=== PATIENT | male | born 1985 | race African-American/Black ===

== ENCOUNTER → 2020-11-10 11:04 | Outpatient (BNVA) | payer MEDICARE, MEDICAID, SELFPAY | PROVIDERS: Family Provider Nurse Practitioner; PCP Nurse Practitioner; Visit Provider Surgery | DX: Z20.822 Contact with and (suspected) exposure to COVID-19 (principal) | CPT/HCPCS: 87635 ==

== ENCOUNTER 2020-11-30 07:26 | Day surgery (SDC) | payer MEDICARE, MEDICAID, SELFPAY ==
[2020-11-29 14:27] VITALS: BMI 21.7
[2020-11-30] VITALS (8 sets, daily range): BP systolic 98–145; BP diastolic 54–85; PULSE 67–78; RESP 12–18; TEMP 36.1–36.7; O2SAT 96–100
--- NOTE | 2020-11-30 | SCC_ITS ---
Procedure Done: Exchange of 16 Danish 23 cm long AshSplit tunneled hemodialysis catheter in the right internal jugular vein 33.5 seconds of fluoroscopic guidance, for a cumulative dose of 2.80 mGy, was provided to Dr. Sampson by the radiology department. C-arm images of the chest were saved for the patient's permanent record. [facility]
--- NOTE | 2020-11-30 08:19 | ANES.PREANE2 ---
Pre-Anesthetic Assessment Pre-Anesthetic Assessment: Height/Weight: Height 1.73 m Weight 64.864 kg Preop Diagnosis: Nonfunctioning hemodialysis catheter Proposed Procedure: Operation Date: 11/30/20 09:00 Proposed Procedures p Exchange of Tunneled dialysis catheter 78873 N18.9(Not Applicable) - Nithin Sampson MD Familial anesthetic complications: None Was Beta Jadon taken within 24 hours: N/A Last intake: Intake Last Liquid Date 11/30/20 Last Liquid Time 22:00 Last Solid Date 11/30/20 Last Solid Time 22:00 Social: Social History: No alcohol and No tobacco Comment: Uses Marijuana Airway: Cervical ROM: WNL MP: 2 Dentition: Full : : Chronic renal failuer Musc/skel: Comments: HIV Anesthetic Plan: ASA status: 3 Anesthesia: MAC Risk of > 500 ml blood loss (7ml/kg in children): No PFSH Anesthesia PFSH: Medical History AV fistula Chronic kidney disease History of chemotherapy History of testicular cancer HIV carrier Surgical History (Updated 11/14/20 @ 16:33 by Nithin Sampson MD) History of removal of Port-a-Cath S/P hemodialysis catheter insertion S/P laparotomy Lymph node biopsy Family History Denies family history of Anesthesia complication Bleeding disorder Social History Smoking and tobacco status: current every day smoker Alcohol intake: never Adopted: No Caregiver/support person: Yes Lives independently: Yes Housing: House Current occupational status: disabled Pets and animals: No History of recent travel: No Sexually active: Yes Current gender identity: Male Josefa/Muslim: Yazdanism Data Anesthesia Cardiac Studies: No Data to Display
--- NOTE | 2020-11-30 08:25 | W.PM.OPSUD ---
Surgery/Procedure H&P Update DATE OF PROCEDURE: November 30, 2020 DATE H&P PERFORMED: 11/10/20 H&P UPDATE INFORMATION: I have reviewed H&P completed within last 30 days, I have examined patient prior to procedure and No changes to prior documentation PREOP DIAGNOSIS: Nonfunctioning hemodialysis catheter PLANNED PROCEDURE: Operation Date: 11/30/20 09:00 Proposed Procedures p Exchange of Tunneled dialysis catheter 16879 N18.9(Not Applicable) - Nithin Sampson MD
[2020-11-30] MEDS: sodium chloride 0.9% 1,000 ML 30 ML IV (08:32)
[2020-11-30] MEDS: lidocaine 1% INJ 20 mL SUBCUT (09:04)
[2020-11-30] MEDS: heparin, porcine 1,000 unit/mL INJ 10 mL 6000 UNIT XX (09:05)
--- NOTE | 2020-11-30 09:12 | SC_ITS ---
WS: [id number] C-arm fluoroscopy of the right chest for dialysis catheter insertion, 11/30/2020 Clinical Data: intra-op Comparison: Portable chest, 03/26/2019. Findings: The dialysis catheter enters the right internal jugular vein and ends in the superior vena cava. SC/C-arm FL for CVA [id number] Impression: Satisfactory insertion of right dialysis catheter.
--- NOTE | 2020-11-30 09:16 | P.OP_ITS ---
Operative Report Date of procedure: November 30, 2020 Pre-op Diagnosis: Nonfunctioning hemodialysis catheter Post-op diagnosis: same Procedure Done: Exchange of 16 Zimbabwean 23 cm long AshSplit tunneled hemodialysis catheter in the right internal jugular vein Fluoroscopic guidance and interpretation for placement of catheter Pathology: none sent Surgeon: Nithin Sampson Anesthesia: MAC Condition: stable Disposition: PACU Procedure: The patient was in the operating room and placed under MAC after IV antibiotic had been administered. The existing catheter was draped in Betadine after the chest was prepped and draped in a sterile manner. Under fluoroscopy the new location for the catheter was marked on the right chest wall adjacent to the existing catheter. Using 11 blade an incision was made at the site of planned entry on the right chest as well as at the site of entry into the right internal jugular vein. The existing catheter was dissected free from the surrounding subcutaneous tissue and divided after the distal end was clamped. The existing catheter was dissected free from the subcutaneous tissue on the right chest and removed completely. The new 16 Zimbabwean 23 cm long AshSplit catheter was then passed subcutaneously using a tunneler and exited through the incision in the right neck. A guidewire was passed through the distal portion of the previously placed catheter and the catheter was removed. A dilator sheath was passed over the guidewire under fluoroscopy and the inner dilator and guidewire was removed. The catheter was introduced into the internal jugular vein and down to the superior vena cava as the peel-away sheath was removed. Fluoroscopy confirmed good position of the catheter tip with no obvious evidence of kinking. The catheter sutured to the skin using 3-0 Prolene suture and the skin incision was closed using 4-0 Monocryl and surgical glue. The 2 catheter ports flushed and rudolph blood easily, and the 2 ports were flushed with 2.5 cc each of 1: 1,000 heparin. Pressure dressings were applied and the patient was transferred to recovery room in stable condition.
--- NOTE | 2020-11-30 09:26 | P.PCN_ITS ---
PACU note PACU note: VSS, Good respiratory effort, report to WASHER CARCASS Post-Anesthesia Exam: awake
--- NOTE | 2020-11-30 09:26 | PM.PACU ---
PACU note PACU note: VSS, Good respiratory effort, report to [employer] Post-Anesthesia Exam: awake
--- NOTE | 2020-11-30 09:33 | SUR.PHASEI ---
0933- ORAL AIRWAY REMOVED, SIMPLE MASK AT 6LPM SAT 100%
[2020-11-30] MEDS: ondansetron 2 mg/ML SDV 2 mL 4 MG IVP (10:10)
--- NOTE | 2020-11-30 10:23 | SUR.PHASEII ---
medicated for nausea. additional 4x4 dressing and dermabond applied to op site.
--- NOTE | 2020-11-30 14:47 | ANE.PACU2 ---
Inpatient post-anesthesia follow up: Airway intact: Yes Vital signs: Temperature 97.5 F Pulse Rate 75 Respiratory Rate 16 Blood Pressure 138/85 Pulse Oximetry 98 Oxygen Delivery Me thod Room Air Oxygen Flow Rate 6 Fraction of Inspir ed Oxygen Hydration adequate: Yes Nausea and vomiting: No Pain level: 1 Mental status: Baseline
== END 2020-11-30 10:25 | disposition home or self-care (01) ==
PROVIDERS: PCP Nurse Practitioner; Visit Provider Surgery
PROC: (CPT 36558; principal; 2020-11-30 09:00)
DX: T85.691A Other mechanical complication of intraperitoneal dialysis catheter, initial encounter (principal)
CPT/HCPCS: 36558; 36589; 77001; 96365; 96374; C1750; J0690; J1644; J2405; J2704; J3010; J3490; J7030

== ENCOUNTER 2021-05-29 19:11 | Inpatient (IN) | payer MEDICARE, MEDICAID, SELFPAY ==
[2021-05-29] VITALS (10 sets, daily range): BP systolic 124–185; BP diastolic 93–120; PULSE 102–138; RESP 26–45; TEMP 36.7; O2SAT 96–98; BMI 22.8
--- NOTE | 2021-05-29 19:16 | XRR_ITS ---
PROCEDURE INFORMATION: Exam: XR Chest Exam date and time: 05/29/2021 7:16 PM Age: 36 years old Clinical indication: Cough and shortness of breath; Prior surgery; Surgery type: Dialysis cath; Additional info: SOB TECHNIQUE: Imaging protocol: XR of the chest. Views: 1 view. Total images: 1 COMPARISON: CR Chest 1 [place] [id number] 03/26/2019 11:05 AM FINDINGS: Tubes, catheters and devices: Double-lumen right indwelling dialysis catheter tip atrial caval junction. Lungs: Bilateral predominately perihilar interstitial lung disease suggesting active interstitial edema/pulmonary edema. Central pulmonary hyperemia. Pleural spaces: No visible pleural effusion. No pneumothorax. Heart/Mediastinum: Mild cardiomegaly. Bones/joints: Unremarkable. XR/XR chest 1V portable [id number] IMPRESSION: Moderate interstitial edema/pulmonary edema.
--- NOTE | 2021-05-29 19:16 | ECG_ITS ---
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: : 1985 Requested By: Renee Dsouza Order Number: [id number] Neva MD: ELIZABETH OSORIO Measurements Intervals [place] Rate: 130 P: 80 CA: 141 QRS: 66 QRSD: 71 T: 104 QT: 302 QTc: 445 Interpretive Statements SINUS TACHYCARDIA MINIMAL VOLTAGE CRITERIA FOR LVH, CONSIDER NORMAL VARIANT [MEETS CRITERIA IN ONE OF: R(aVL), S(V1), R(V5), R(V5/V6)+S(V1)] MODERATE T-WAVE ABNORMALITY, CONSIDER LATERAL ISCHEMIA [-0.1+ mV T-WAVE IN I/aVL/V5/V6] Compared to ECG 03/26/2019 09:18:17 Possible ischemia now present T-wave abnormality still present Electronically Signed On 05-29-2021 21:01:00 CDT by ELIZABETH OSORIO [id number]
[2021-05-29] MEDS: albuterol 8 gm MDI 2 PUFF INHALATION (19:20)
[2021-05-29] MEDS: dexamethasone 10 mg/mL INJ 6 MG IVP (19:26)
[2021-05-29 19:28] LABS: ABG PCO2 27.4 mmHg (35-45); ABG PH Result 7.37 (7.35-7.45); Arterial Blood Gas Hematocrit 34.7 % (42-52); Base Excess ABG -8.1 mmol/L (-2.0-2.0); Blood Gas Operator Identificat HARKR; Blood Gas Sample Site Brachial, right; Blood Gas Sample Type Arterial; HCO3 ABG 15.9 mmol/L (22-26); Oxygen Device ROOM AIR; PO2 ABG 75.9 mmHg (80.0-100.0)
[2021-05-29 19:32] LABS: Basophils % 1.1 %; Eosinophils # 0.1 10^3/uL (0.0-0.8); Eosinophils % 3.4 %; Hematocrit 35.8 % (42.0-52.0); Hemoglobin 11.1 g/dL (11.7-16.6); Lymphocytes # 1.4 10^3/uL (0.8-4.8); Lymphocytes % 39.7 %; Mean Corpuscular Hemoglobin 27.5 pg (28.0-34.0); Mean Corpuscular Volume 88.6 fl (80-94); Mean Platelet Volume 11.3 fL (7.4-10.4); Monocytes # 0.2 10^3/uL (0.2-0.9); Monocytes % 5.7 %; Neutrophils # 1.74 10^3/uL (1.8-7.7); Neutrophils % 49.8 %; Nucleated Red Blood Cells % 0.6 %; Platelet Count 167 10^3/cmm (130-400); Red Blood Count 4.04 10^6/uL (4.1-5.3); Red Cell Distribution Width 17.5 % (12.1-15.1); White Blood Count 3.5 10^3/uL (4.0-10.0)
--- NOTE | 2021-05-29 19:38 | W.ED.SOB ---
HPI - SOB/Dyspnea General: Chief Complaint: Shortness of Breath/Dyspnea Stated Complaint: RESP DISTRESS Time Seen by Provider: 05/29/21 19:13 Source: patient and EMS Mode of arrival: EMS Limitations: no limitations History of Present Illness: HPI Narrative: 36-year-old male has a history of HIV along with end-stage renal disease and is on dialysis. States he has not felt well over the last weeks had slight cough and shortness of breath. States he gets dialysis Friday and did miss dialysis yesterday due to this. He states had increasing dyspnea here. Denies any fever here. Denies any vomiting or diarrhea. He is not distressed. Associated symptoms: Deny abdominal pain, chest pain, nausea or vomiting Review of Systems Const: Reports: chills Eyes: Denies: blurry vision or eye discomfort ENMT: Denies: throat pain or dental pain Card: Denies: chest pain Resp: Reports: dyspnea and non-productive cough GI: Denies: abdominal pain, nausea, vomiting or diarrhea : Denies: dysuria Musc: Denies: neck pain or back pain Skin/Breast: Denies: rash Neuro: Denies: headache(s) Psych: Denies: depression Wilver/Lymph: Denies: easy bruising All/Imm: Denies: urticaria PFSH ED PFSH: Medical History AV fistula Chronic kidney disease History of chemotherapy History of testicular cancer HIV carrier Surgical History History of orchiectomy, unilateral History of removal of Port-a-Cath S/P hemodialysis catheter insertion (11/30/20) R IJ catheter exchange S/P laparotomy Lymph node biopsy Family History Denies family history of Anesthesia complication Bleeding disorder Social History (Updated 05/29/21 @ 22:13 by Bertha Last MD) Smoking and tobacco status: current every day smoker Alcohol intake: never Adopted: No Caregiver/support person: Yes Lives independently: Yes Housing: House Current occupational status: disabled Pets and animals: No Sexually active: Yes Current gender identity: Male Josefa/Anabaptist: Gnosticist Physical Exam Const: COMMON NORMALS: patient oriented x3 GENERAL APPEARANCE: in distress HENMT: COMMON NORMALS: normocephalic and atraumatic HEAD & SCALP: normocephalic and atraumatic Eye: COMMON NORMALS: Equal, round and reactive pupils present and EOMs intact bilaterally PUPIL: Yes Equal, round and reactive pupils present Neck/C-Spine: COMMON NORMALS: full ROM and supple Chest: COMMONS NORMALS: normal inspection of the chest and normal palpation of entire chest wall Resp: COMMON NORMALS: No retractions and No use of accessory muscles EFFORT & INSPECTION: Yes tachypneic AUSCULTATION: rales Cardio: COMMON NORMALS: regular rate, regular rhythm and No murmurs present (Cardio) RATE: regular rate RHYTHM: regular rhythm GI: COMMON NORMALS: Normal to inspection, nondistended, normoactive bowel sounds present, Soft to palpation, non-tender and no masses PALPATION: Yes Soft to palpation Extremity: COMMON NORMALS: normal to inspection and full ROM Neuro: COMMON NORMALS: patient oriented x3, moves all extremities and no focal motor deficits Psych: COMMON NORMALS: mental status grossly normal, Normal thought process present and cooperative THOUGHT PROCESS: Normal thought process present Skin: COMMON NORMALS: no rashes or lesions noted and no wounds GENERAL SKIN EXAM: no rashes or lesions noted Course Vital Signs: Vital signs: Vital Signs Temperature 98.1 F 05/29/21 19:16 Pulse Rate 108 H 05/29/21 23:00 Respiratory Rate 31 H 05/29/21 23:00 Blood Pressure 124/94 05/29/21 23:00 Pulse Oximetry 97 05/29/21 23:00 MDM - SOB/Dyspnea MDM Narrative: Medical decision making narrative: Patient presents here with pulmonary edema and fluid overload likely from missed dialysis. Was hypertensive as well his heart rate and blood pressure is improved here after blood pressure medicine. Patient's x-rays does show pulmonary edema. Patient's been seen by Dr. Last in the ER and will admit for dialysis. Covid is negative no signs of pneumonia no fever. Lab Data: Labs: Lab Results 05/29/21 05/29/21 05/29/21 Range/Units 19:17 19:21 19:21 WBC 3.5 L (4.0-10.0) 10^3/ uL RBC 4.04 L (4.1-5.3) 10^6/u L Hgb 11.1 L (11.7-16.6) g/dL Hct 35.8 L (42.0-52.0) % MCV 88.6 (80-94) fl MCH 27.5 L (28.0-34.0) pg MCHC 31.0 (30.0-36.0) g/dL RDW 17.5 H (12.1-15.1) % Plt Count 167 (130-400) 10^3/c mm MPV 11.3 H (7.4-10.4) fL Neut % (Auto) 49.8 % Lymph % (Auto) 39.7 % [place] % (Auto) 5.7 % Eos % (Auto) 3.4 % Baso % (Auto) 1.1 % Neut # (Auto) 1.74 L (1.8-7.7) 10^3/u L Lymph # (Auto) 1.4 (0.8-4.8) 10^3/u L [place] # (Auto) 0.2 (0.2-0.9) 10^3/u L Eos # (Auto) 0.1 (0.0-0.8) 10^3/u L Baso # (Auto) 0.0 (0.0-0.1) 10^3/u L Nucleated RBC % (a uto) 0.6 % Nucleated RBCs # 0.0 /100WBC PT 14.80 (12.1-14.9) SECO NDS INR 1.12 (0.8-1.2) Specimen Type Arterial Sample Site Brachial, right ABG pH 7.37 (7.35-7.45) ABG pCO2 27.4 L (35-45) mmHg ABG pO2 75.9 L (80.0-100.0) mmH g ABG HCO3 15.9 L (22-26) mmol/L ABG Base Excess -8.1 L (-2.0-2.0) mmol/ L Wilfred Test N/a Hematocrit 34.7 L (42-52) % O2 Delivery Device Room air Loading Machine Adjuster ID Harkr Sodium (136-145) mmol/L Potassium (3.5-5.1) mmol/L Chloride (98-107) mmol/L Carbon Dioxide (22-29) mmol/L Anion Gap (5-19) BUN (6-20) mg/dL Creatinine (0.7-1.2) mg/dL GFR Calculation (90-130) mL/min Glucose (65-115) mg/dL Calculated Osmolal ity (285-295) mOsm/k g Lactic Acid (0.5-2.2) mmol/L Lactic Acid (Sepsi s) (0.5-2.2) mmol/L Calcium (8.5-10.5) mg/dL Magnesium (1.7-2.3) mg/dL Total Bilirubin (0.15-1.2) mg/dL AST (0-40) U/L ALT (0-41) U/L Alkaline Phosphata se (40-130) IU/L C-Reactive Protein (0.0-4.9) mg/L NT-Pro-B Natriuret Pep (0-125) pg/mL Total Protein (6.6-8.7) g/dL Albumin (3.5-5.2) g/dL Globulin (1.3-4.6) g/dL SARS-CoV-2 Ag (Rap id) (Negative) 05/29/21 05/29/21 05/29/21 Range/Units 19:21 19:21 19:30 WBC (4.0-10.0) 10^3/ uL RBC (4.1-5.3) 10^6/u L Hgb (11.7-16.6) g/dL Hct (42.0-52.0) % MCV (80-94) fl MCH (28.0-34.0) pg MCHC (30.0-36.0) g/dL RDW (12.1-15.1) % Plt Count (130-400) 10^3/c mm MPV (7.4-10.4) fL Neut % (Auto) % Lymph % (Auto) % [place] % (Auto) % Eos % (Auto) % Baso % (Auto) % Neut # (Auto) (1.8-7.7) 10^3/u L Lymph # (Auto) (0.8-4.8) 10^3/u L [place] # (Auto) (0.2-0.9) 10^3/u L Eos # (Auto) (0.0-0.8) 10^3/u L Baso # (Auto) (0.0-0.1) 10^3/u L Nucleated RBC % (a uto) % Nucleated RBCs # /100WBC PT (12.1-14.9) SECO NDS INR (0.8-1.2) Specimen Type Sample Site ABG pH (7.35-7.45) ABG pCO2 (35-45) mmHg ABG pO2 (80.0-100.0) mmH g ABG HCO3 (22-26) mmol/L ABG Base Excess (-2.0-2.0) mmol/ L Wilfred Test Hematocrit (42-52) % O2 Delivery Device Loading Machine Adjuster ID Sodium 141 (136-145) mmol/L Potassium 5.1 (3.5-5.1) mmol/L Chloride 105 (98-107) mmol/L Carbon Dioxide 17 L (22-29) mmol/L Anion Gap 24.1 H (5-19) BUN 65 H (6-20) mg/dL Creatinine 11.5 H* (0.7-1.2) mg/dL GFR Calculation 6.1 L (90-130) mL/min Glucose 107 (65-115) mg/dL Calculated Osmolal ity 311 H (285-295) mOsm/k g Lactic Acid 2.8 H (0.5-2.2) mmol/L Lactic Acid (Sepsi s) (0.5-2.2) mmol/L Calcium 8.2 L (8.5-10.5) mg/dL Magnesium 2.5 H (1.7-2.3) mg/dL Total Bilirubin 0.3 (0.15-1.2) mg/dL AST 41 H (0-40) U/L ALT 33 (0-41) U/L Alkaline Phosphata se 72 (40-130) IU/L C-Reactive Protein 2.8 (0.0-4.9) mg/L NT-Pro-B Natriuret Pep > 06069 H (0-125) pg/mL Total Protein 8.1 (6.6-8.7) g/dL Albumin 3.6 (3.5-5.2) g/dL Globulin 4.5 (1.3-4.6) g/dL SARS-CoV-2 Ag (Rap id) Negative (Negative) 05/29/21 Range/Units 22:23 WBC (4.0-10.0) 10^3/ uL RBC (4.1-5.3) 10^6/u L Hgb (11.7-16.6) g/dL Hct (42.0-52.0) % MCV (80-94) fl MCH (28.0-34.0) pg MCHC (30.0-36.0) g/dL RDW (12.1-15.1) % Plt Count (130-400) 10^3/c mm MPV (7.4-10.4) fL Neut % (Auto) % Lymph % (Auto) % [place] % (Auto) % Eos % (Auto) % Baso % (Auto) % Neut # (Auto) (1.8-7.7) 10^3/u L Lymph # (Auto) (0.8-4.8) 10^3/u L [place] # (Auto) (0.2-0.9) 10^3/u L Eos # (Auto) (0.0-0.8) 10^3/u L Baso # (Auto) (0.0-0.1) 10^3/u L Nucleated RBC % (a uto) % Nucleated RBCs # /100WBC PT (12.1-14.9) SECO NDS INR (0.8-1.2) Specimen Type Sample Site ABG pH (7.35-7.45) ABG pCO2 (35-45) mmHg ABG pO2 (80.0-100.0) mmH g ABG HCO3 (22-26) mmol/L ABG Base Excess (-2.0-2.0) mmol/ L Wilfred Test Hematocrit (42-52) % O2 Delivery Device Loading Machine Adjuster ID Sodium (136-145) mmol/L Potassium (3.5-5.1) mmol/L Chloride (98-107) mmol/L Carbon Dioxide (22-29) mmol/L Anion Gap (5-19) BUN (6-20) mg/dL Creatinine (0.7-1.2) mg/dL GFR Calculation (90-130) mL/min Glucose (65-115) mg/dL Calculated Osmolal ity (285-295) mOsm/k g Lactic Acid (0.5-2.2) mmol/L Lactic Acid (Sepsi s) 1.7 (0.5-2.2) mmol/L Calcium (8.5-10.5) mg/dL Magnesium (1.7-2.3) mg/dL Total Bilirubin (0.15-1.2) mg/dL AST (0-40) U/L ALT (0-41) U/L Alkaline Phosphata se (40-130) IU/L C-Reactive Protein (0.0-4.9) mg/L NT-Pro-B Natriuret Pep (0-125) pg/mL Total Protein (6.6-8.7) g/dL Albumin (3.5-5.2) g/dL Globulin (1.3-4.6) g/dL SARS-CoV-2 Ag (Rap id) (Negative) Imaging Data^: CXR: Attestation: I personally reviewed and interpreted this imaging study as follows: Radiologist's impression: [place] [address] XRay Report Signed Patient: Vivek Harden Unit #: [id number] : 1985 Age/Sex: 36 / M ADM Date: 05/29/21 Loc: ER Room/Bed: Attending Dr: Ordering Provider/Ordering MD: Renee Dsouza MD Date of Service: 05/29/21 Procedure(s): XR chest 1V portable [id number] Accession Number(s): [id number] Report Number: [id number] PROCEDURE INFORMATION: Exam: XR Chest Exam date and time: 05/29/2021 7:16 PM Age: 36 years old Clinical indication: Cough and shortness of breath; Prior surgery; Surgery type: Dialysis cath; Additional info: SOB TECHNIQUE: Imaging protocol: XR of the chest. Views: 1 view. Total images: 1 COMPARISON: CR Chest 1 [place] [id number] 03/26/2019 11:05 AM FINDINGS: Tubes, catheters and devices: Double-lumen right indwelling dialysis catheter tip atrial caval junction. Lungs: Bilateral predominately perihilar interstitial lung disease suggesting active interstitial edema/pulmonary edema. Central pulmonary hyperemia. Pleural spaces: No visible pleural effusion. No pneumothorax. Heart/Mediastinum: Mild cardiomegaly. Bones/joints: Unremarkable. XR/XR chest 1V portable [id number] IMPRESSION: Moderate interstitial edema/pulmonary edema. Dictated By: Peterson Vee Signed By: Peterson Vee Signed Date/Time: 05/29/212003 DD/ 01 EKG Data^: EKG 1: Attestation: I personally reviewed and interpreted this EKG as follows: EKG Interpretation Date: 05/29/21 EKG interpretation time: 19:36 Interpretation: sinus tach hr [address] or t wave abnormalities qrs 71 qtc 379 Discharge Plan Discharge Patient Disposition: Admitted As Inpatient Clinical Impression: HIV (human immunodeficiency virus infection), ESRD (end stage renal disease) on dialysis, Pulmonary edema Condition: Stable Coding Level of Care Code ED Household Appliance Assembler for Chg Fwd Exam Comprehensive
[2021-05-29 19:57] LABS: Lactic Sepsis W/Reflex 2.8 mmol/L (0.5-2.2)
[2021-05-29 20:07] LABS: Alanine Aminotransferase 33 U/L (0-41); Albumin Level 3.6 g/dL (3.5-5.2); Alkaline Phosphatase 72 IU/L (40-130); Anion Gap 24.1 (5-19); Aspartate Amino Transferase 41 U/L (0-40); Blood Urea Nitrogen 65 mg/dL (6-20); C Reactive Protein 2.8 mg/L (0.0-4.9); Calcium 8.2 mg/dL (8.5-10.5); Carbon Dioxide 17 mmol/L (22-29); Chloride 105 mmol/L (98-107); Globulin 4.5 g/dL (1.3-4.6); Glomerular Filtration Rate 6.1 mL/min (90-130); Glucose 107 mg/dL (65-115); Magnesium 2.5 mg/dL (1.7-2.3); Osmolality Calculated 311 mOsm/kg (285-295); Potassium 5.1 mmol/L (3.5-5.1); Sodium 141 mmol/L (136-145); Total Bilirubin 0.3 mg/dL (0.15-1.2); Total Protein 8.1 g/dL (6.6-8.7)
[2021-05-29 20:21] LABS: SARS Covid-2 Antigen Negative (Negative)
[2021-05-29 20:23] LABS: INR 1.12 (0.8-1.2)
[2021-05-29] MEDS: midazolam 1 mg/mL INJ 2 mL 2 MG IVP (20:25)
[2021-05-29 20:45] LABS: NT Pro B Type Natriuretic Pept > 70000 pg/mL (0-125)
[2021-05-29 21:16] LABS: Reflex Lactate Order REFLEX LACTIC ORDERD
--- NOTE | 2021-05-29 22:11 | P.HP_ITS ---
Providers/Chief Complaint Admitting Physician: Bertha Last MD Chief Complaint: RESP DISTRESS History of Present Illness Vivek Harden is a 36 year old male who presented to the emergency room with chief complaint of difficulty breathing and not feeling well. Patient has not been feeling well for about a week. The first thing he noticed was extreme fatigue and difficulty breathing, being short of breath. He then began to have a dry hacking cough that was near constant. Denies any vomiting or posttussive emesis. He started having diarrhea a couple of days ago, 2-3 times a day of loose stools. No blood noted. He denies abdominal pain. General malaise. No sore throat or runny nose but does describe chest congestion. Feels like he cannot cough anything up. Denies any heartburn or reflux symptoms. No reports of any fever. He has been taking his antiretroviral medications regularly without missing any doses. He is not on any chronic prophylactic antibiotics. Does not know what his last CD4 count was. He was feeling bad enough that he did not make dialysis yesterday. This evening he became even more acutely short of breath. Does not describe any chest pain but not able to get on a good deep breath. When he is not able to breathe he gets very anxious because he cannot catch his breath. On arrival oxygen saturations were okay but he was tachycardic into the 130s and 140s. Initial blood pressures were 180s over 120s. He received a couple of doses of dexamethasone, some albuterol, some Versed. Blood pressures have improved and heart rate has improved some but he continues to be significantly short of breath. He is never experienced anything like this before. In talking with him his dry weight has recently been decreased from 155 pounds to 150 pounds. Pressures were high recently at dial ysis clinic and he was prescribed a blood pressure medication which he has not yet filled. This is the first time that he is required blood pressure medication. He does have dialysis catheter in the right upper chest and has a fistula that still requires some work. No known Covid exposures but says [facility] [place] [facility]. No covid vaccine. No one close to him is known to be acutely sick. He is being admitted for further evaluation and treatment. Review of Systems Const: Reports: chills, change in weight (dry weight recently changed from 155 to 150 pounds), fatigue, malaise and diaphoresis; Denies: fever(s) Eyes: Denies: change in vision ENMT: Denies: throat pain or nasal congestion Card: Reports: palpitations; Denies: chest pain or edema Resp: Reports: dyspnea, non-productive cough (dry hacking constant) and chest congestion; Denies: productive cough, wheezing, stridor, pain on inspiration (but cant get in a good breath) or hemoptysis GI: Reports: diarrhea; Denies: abdominal pain, nausea, vomiting, heartburn, constipation, hematochezia or melena : Reports: other (still makes urine several times per day); Denies: hematuria Musc: Denies: joint pain or joint swelling Skin/Breast: Reports: sores (bottoms of feet, nodules that hurt sometimes, denies open wounds); Denies: rash or pruritus Neuro: Reports: other (general weakness, no described focal weakness) Psych: Reports: anxiety (from trouble breathing) Medications/Allergies Home Medications Medication Instructions Recorded Confirmed Last Taken Type darunavir-cobicistat [Prezcobix] 1 tab PO DAILY 05/29/21 05/29/21 05/29/21 History dolutegravir [Tivicay] 50 mg PO DAILY 05/29/21 05/29/21 05/29/21 History Allergies Allergy/AdvReac Type Severity Reaction Status Date / Time acetaminophen Allergy Severe ALGY-Hives Verified 12/12/20 10:41 Iodinated Contrast Media Allergy Unknown Verified 05/29/21 23:48 lorazepam [From Ativan] Allergy ADR-Agitate Verified 05/29/21 23:49 d Additional Medication Information I personally reviewed home medication list and medications received day of admission thus far. In the ED he received 6 mg of dexamethasone, albuterol 2 puffs, 10 mg of labetalol and 2 mg of Versed. PFSH Acute PFSH: Medical History (Updated 05/30/21 @ 00:24 by Bertha Last MD) Anemia in chronic kidney disease AV fistula ESRD (end stage renal disease) on dialysis History of chemotherapy History of testicular cancer HIV carrier Surgical History History of orchiectomy, unilateral History of removal of Port-a-Cath S/P hemodialysis catheter insertion (11/30/20) R IJ catheter exchange S/P laparotomy Lymph node biopsy Family History Denies family history of Anesthesia complication Bleeding disorder Social History (Updated 05/29/21 @ 23:44 by Bertha Last MD) Alcohol intake: never Adopted: No Caregiver/support person: Yes Lives independently: Yes Housing: House Current occupational status: disabled Pets and animals: No Sexually active: Yes Current gender identity: Male Josefa/Congregational: [employer] Vitals/I&O/Wt Last Vital Signs Temp 98.1 F 05/29/21 19:16 Pulse 132 H 05/29/21 21:00 Resp 31 H 05/29/21 21:00 BP 141/96 05/29/21 21:00 Pulse Ox 97 05/29/21 20:32 Weight last 48 hrs Weight 68.039 kg Physical Exam Narrative: EXAM NARRATIVE: Constitutional: Awake and alert, diaphoretic, lying on left side, moderate distress that improves during my evaluation HEENT: Normocephalic, pupils are equally reactive, sclera slightly muddy but not injected, conjunctiva pink, no proptosis, nasopharynx without any rhinorrhea, oropharynx with dry membranes but clear Neck: Supple Respiratory: Crackles noted throughout, no wheezes, supraclavicular and intercostal retractions, mild nasal flaring but improved after talking with him a bit and then even more after some morphine Cardiovascular: Tachycardic, regular rhythm, no palpable thrills, mild JVD appreciated once able to lie in appropriate positioning, 2/6 murmur noted left apex, pulses are equal x4 Abdomen: Soft, nontender, positive bowel sounds Extremities: No pitting edema or calf tenderness Skin: Patient with some hyperpigmented nodular lesions to the feet without any focal tenderness noted, no other sores or bruises or rashes noted, skin dry Neuro: Speech clear, face symmetric, moves all extremities, no involuntary movements Psych: Anxious but cooperative Data : 05/29/21 19:21 05/29/21 19:21 Other Labs: Laboratory Results WBC 3.5 10^3/uL (4.0-10.0) L 05/29/21 19:21 RBC 4.04 10^6/uL (4.1-5.3) L 05/29/21 19:21 Hgb 11.1 g/dL (11.7-16.6) L 05/29/21 19:21 Hct 35.8 % (42.0-52.0) L 05/29/21 19:21 MCV 88.6 fl (80-94) 05/29/21 19:21 MCH 27.5 pg (28.0-34.0) L 05/29/21 19:21 MCHC 31.0 g/dL (30.0-36.0) 05/29/21 19:21 RDW 17.5 % (12.1-15.1) H 05/29/21 19:21 Plt Count 167 10^3/cmm (130-400) 05/29/21 19: MPV 11.3 fL (7.4-10.4) H 05/29/21 19:21 Neut % (Auto) 49.8 % 05/29/21 19:21 Lymph % (Auto) 39.7 % 05/29/21 19: Gallia % (Auto) 5.7 % 05/29/21 19:21 Eos % (Auto) 3.4 % 05/29/21 19:21 Baso % (Auto) 1.1 % 05/29/21 19: Neut # (Auto) 1.74 10^3/uL (1.8-7.7) L 05/29/21 19:21 Lymph # (Auto) 1.4 10^3/uL (0.8-4.8) 05/29/21 19:21 Gallia # (Auto) 0.2 10^3/uL (0.2-0.9) 05/29/21 19:21 Eos # (Auto) 0.1 10^3/uL (0.0-0.8) 05/29/21 19:21 Baso # (Auto) 0.0 10^3/uL (0.0-0.1) 05/29/21 19:21 Nucleated RBC % (auto) 0.6 % 05/29/21 19:21 Nucleated RBCs # 0.0 /100WBC 05/29/21 19: PT 14.80 SECONDS (12.1-14.9) 05/29/21 19: INR 1.12 (0.8-1.2) 05/29/21 19:21 Specimen Type Arterial 05/29/21 19:17 Sample Site Brachial, right 05/29/21 19:17 ABG pH 7.37 (7.35-7.45) 05/29/21 19:17 ABG pCO2 27.4 mmHg (35-45) L 05/29/21 19:17 ABG pO2 75.9 mmHg (80.0-100.0) L 05/29/21 19:17 ABG HCO3 15.9 mmol/L (22-26) L 05/29/21 19:17 ABG Base Excess -8.1 mmol/L (-2.0-2.0) L 05/29/21 19:17 Wilfred Test N/a 05/29/21 19:17 Hematocrit 34.7 % (42-52) L 05/29/21 19:17 O2 Delivery Device Room air 05/29/21 19:17 Pulley Mortiser Operator ID Harkr 05/29/21 19:17 Sodium 141 mmol/L (136-145) 05/29/21 19:21 Potassium 5.1 mmol/L (3.5-5.1) 05/29/21 19:21 Chloride 105 mmol/L (98-107) 05/29/21 19:21 Carbon Dioxide 17 mmol/L (22-29) L 05/29/21 19:21 Anion Gap 24.1 (5-19) H 05/29/21 19:21 BUN 65 mg/dL (6-20) H 05/29/21 19:21 Creatinine 11.5 mg/dL (0.7-1.2) H* 05/29/21 19:21 GFR Calculation 6.1 mL/min (90-130) L 05/29/21 19:21 Glucose 107 mg/dL (65-115) 05/29/21 19:21 Calculated Osmolality 311 mOsm/kg (285-295) H 05/29/21 19:21 Lactic Acid 2.8 mmol/L (0.5-2.2) H 05/29/21 19:21 Calcium 8.2 mg/dL (8.5-10.5) L 05/29/21 19:21 Magnesium 2.5 mg/dL (1.7-2.3) H 08/31/21 19:21 Total Bilirubin 0.3 mg/dL (0.15-1.2) 05/29/21 19:21 AST 41 U/L (0-40) H 05/29/21 19:21 ALT 33 U/L (0-41) 05/29/21 19:21 Alkaline Phosphatase 72 IU/L (40-130) 05/29/21 19:21 C-Reactive Protein 2.8 mg/L (0.0-4.9) 05/29/21 19:21 NT-Pro-B Natriuret Pep > 44130 pg/mL (0-125) H 05/29/21 19:21 Total Protein 8.1 g/dL (6.6-8.7) 05/29/21 19:21 Albumin 3.6 g/dL (3.5-5.2) 05/29/21 19:21 Globulin 4.5 g/dL (1.3-4.6) 05/29/21 19:21 SARS-CoV-2 Ag (Rapid) Negative (Negative) 05/29/21 19:30 Impressions Chest X-Ray 05/29/21 19:16 IMPRESSION: Moderate interstitial edema/pulmonary edema. Micro: Microbiology 05/29/21 19:21 Blood Culture - Preliminary Blood SPECIMEN COLLECTED 05/29/21 19:30 Blood Culture - Preliminary Blood SPECIMEN COLLECTED A&P Assessment and plan (1) Shortness of breath: Subacute over the last week likely from a viral or other infectious pro cess as well as acute shortness of breath from missing hemodialysis yesterday. Symptoms are out of proportion to what I would expect based on physical exam and work-up thus far in the ED. Status: Acute (2) Tachycardia: Status: Acute (3) ESRD (end stage renal disease) on dialysis: Status: Chronic (4) Anemia in chronic kidney disease: Status: Chronic Qualifiers: Chronic kidney disease stage: on chronic dialysis Qualified Code(s): N18.6 - End stage renal disease; D63.1 - Anemia in chronic kidney disease; Z99.2 - Dependence on renal dialysis (5) HIV (human immunodeficiency virus infection): Status: Chronic Qualifiers: HIV symptom status: asymptomatic, with no history of HIV-related illness Qualified Code(s): Z21 - Asymptomatic human immunodeficiency virus [HIV] infection status Additional A&P Information Patient has been sick, not feeling well with fatigue and shortness of breath for about a week. Has had a nonproductive cough with chest congestion along with a couple of days of diarrhea. Rapid Covid antigen in the emergency room was negative but Covid is still well within differential. White count is a little low with normal lymphocyte count, decreased neutrophils. No history of opportunistic infections and not on prophylactic treatment but unknown CD4 levels. Has been compliant with antiretroviral therapy. Because of malaise from this unclear illness, Mr. Harden missed hemodialysis yesterday. He presents acutely short of breath, tachycardic and hypertensive. His symptoms are quite severe, out of proportion to abnormalities noted on chest x-ray and have been associated with significant diaphoresis. EKG with sinus tachycardia. Has maintain oxygen saturations although PO2 on ABG was below normal range on room air. Differential for initial illness includes viral infection, bacterial infection, other opportunistic type infection, PE, vascular process, changes to overall vol ume status particularly given that he has had recent change in what his dry weight should be and increasing blood pressures, among others. Differential for acute illness seems most likely from volume overload/pulmonary edema from missing hemodialysis yesterday but again he seems a lot sicker clinically than I would expect from missing one episode of dialysis alone. Acute vascular event, pericardial effusion, tachycardia and other symptoms from medication effect, other etiologies also in the differential. Observation admission for now Nephrology consultation for dialysis CTA of the chest, I did discuss with nephrology as well as with patient Glenn prior to CTA as he describes a contrast allergy, already received dexamethasone in the emergency room Blood cultures were collected Send bacterial antigens, Covid PCR and RSV Urinalysis as he does still make urine Stool studies Check CD4 count Check procalcitonin CRP was 2.8, lactic acid was 1.7 Check some other baseline Covid labs Echocardiogram Telemetry monitoring Check troponin proBNP was greater than 70,000 Received beta-ahsan in the emergency room, can consider continuation but would like to evaluate a bit further before continuing on the scheduled Check TSH PPI Morphine if needed for respiratory distress Cough syrup Continue home antiretroviral medications Supportive care otherwise Consultants: Nephrology for dialysis Pending/ordered tests/procedures to follow: Bacterial antigens, Covid PCR, RSV, stool studies, urinalysis, procalcitonin, CTA, echocardiogram, troponin, TSH, CD4 count which likely is a send out test Lines/tubes: Has peripheral IVs and dialysis catheter in the right upper chest DVT prophylaxis: Subcu heparin Plans, findings and concerns discussed with patient as well as his female friend in the room, both were given an opportunity to ask questions. Would benefit from arrangements for primary care provider who could address concerns regarding possibility of sleep apnea as concern for progressively worsening symptoms chronically brought up during evaluation Anticipated Disposition: Home Code Status: Full code Attestations Medical Necessity Statement*: Anticipated stay less than 2 midnights in a gentleman who missed hemodialysis yesterday and is presenting significantly short of breath which is not surprising under the circumstances. That being said however he has not felt well for about a week and I am not sure what the basis for that is at this time. If he does not have significant improvement after hemodialysis and work-up as noted above may require transition to inpatient status Coding Level of Care Code Acute Wood Boring Machine Operator for Jignesh Emerson Diagnoses Shortness of breath R06.02 Tachycardia R00.0 ESRD (end stage renal disease) on dialysis N18.6; Z99.2 Anemia in chronic kidney disease N18.6; D63.1; Z99.2 Chronic kidney disease stage: on chronic dialysis HIV (human immunodeficiency virus infection) Z21 HIV symptom status: asymptomatic, with no history of HIV-related illness
[2021-05-29] MEDS: labetalol 5 mg/mL SDV 20mL 10 MG IVP (22:14)
[2021-05-29 22:47] LABS: Lactic Acid level (Lactate) 1.7 mmol/L (0.5-2.2)
[2021-05-29] MEDS: morphine 4 mg/mL SDV 1 mL 2 MG IVP (23:07)
[2021-05-29] MEDS: ondansetron 2 mg/ML SDV 2 mL 4 MG IVP (23:13)
--- NOTE | 2021-05-29 23:28 | CTR_ITS ---
PROCEDURE INFORMATION: Exam: CTA Chest With Contrast Exam date and time: 05/29/2021 11:28 PM Age: 36 years old Clinical indication: Shortness of breath; Prior surgery; Surgery type: Ivc filter. ; Patient HX: SOB with tachycardia and hypotension. History of lymphoma and testicular cancer. ; Additional info: Severe SOB, tachycardia, hypotenison, renal aware of patient and plan is for hd wither tonight or^in the morning TECHNIQUE: Imaging protocol: Computed tomographic angiography of the chest with contrast. 3D rendering (Not supervised by radiologist): MIP and/or 3D reconstructed images were created by the technologist. Radiation optimization: All CT scans at this facility use at least one of these dose optimization techniques: automated exposure control; mA and/or kV adjustment per patient size (includes targeted exams where dose is matched to clinical indication); or iterative reconstruction. Contrast material: VISI 320; Contrast volume: 93 ml; Contrast route: INTRAVENOUS (IV); COMPARISON: CT chest w con* [id number] 11/26/2018 12:54 AM RADIATION DOSE METRICS: Total DLP (mGy-cm): 632.04 FINDINGS: Pulmonary arteries: There is no evidence of filling defects within the pulmonary arterial circulation to suggest pulmonary embolism. Aorta: No thoracic aorta aneurysm identified. Veins: Reflux of contrast into the inferior vena cava and hepatic veins suggests cardiac dysfunction. IVC filter is seen in the intrahepatic portion of the IVC. Prominent azygos veins are again noted suggesting some caval or venous obstruction in the abdomen not changed from prior study. Lungs: There is bronchial wall thickening bilaterally but more on the right than on the left which could represent peribronchial edema or bronchitis. There are rounded ground-glass and alveolar opacities more on the right than on the left in a peribronchial distribution. These appear in a background of mild perihilar ground-glass opacity. These are worrisome for pulmonary infection superimposed upon interstitial edema. There is mild thickening of the interlobular septa in the periphery of the lungs. Pleural spaces: There is moderate right and small left pleural effusion. Heart: Unremarkable. No cardiomegaly. No pericardial effusion. Lymph nodes: There is some mildly prominent axillary lymph nodes not significantly changed from previous. There also some prevascular lymph nodes measuring up to 7 x 10 mm larger than on the previous but no gross adenopathy. Kidneys and ureters: There are multiple bilateral renal collecting system calcifications. Bones/joints: Unremarkable. No acute fracture. Soft tissues: Unremarkable. CT/CT angio chest PE protcl [id number] IMPRESSION: 1. No evidence of pulmonary embolism. 2. Bilateral pleural effusions. 3. Findings suggestive of fluid overload/interstitial edema 4. Bilateral patchy alveolar opacities worrisome for infectious disease. Radiation Dose CTDIVOL = (mGy): DLP = 632.04 (mGy-cm)
[2021-05-29 23:34] LABS: Glucose Urine UA 1+ (Normal); Ketones Urine Negative (Negative); Protein Urine 3+ (Negative); Urine Appearance SL Hazy (CLEAR); Urine Color Yellow (Yellow); pH Urine 7 (5-7)
[2021-05-29 23:35] LABS: Add Urine Culture? No; Add Urine Microscopic? YES; Bacteria Urine 1+ /hpf; Bilirubin Urine Neg (Negative); Blood Urine 3+ (Negative); Leukocyte Esterase Urine Negative (Negative); Mucus Urine TRACE /hpf; Nitrate Urine Negative (Negative); Squamous Epithelial Cell Urine 0-4 /hpf (0-5); Urobilinogen Urine Norm (Negative); WBC Urine 0-4 /hpf (0-5)
--- NOTE | 2021-05-29 23:36 | P.CONIM_ITS ---
Providers/Reason For Consult Consulting Physician/Specialty*: petar florez md/ telenephrology Reason for Consult*: ESRD care Requesting Physician: Dr. Nilo Last Attending Physician: Dr Nilo Last History of Present Illness History of Present Illness Vivek Harden is a 36 year old male HIV- does not know his CD$ count, ESRd on HD MWF- missed HD since 05-25-21. Pt here w/ cough, yellow mucous, sob. he states he has been SOB for a week and HD did not help him. though he c/o orthopnea. no edema. h/o testicular cancer s/p unilater orchiectomy and chemoradiation Review of Systems General: Reports: 10 or more systems reviewed and unremarkable except in HPI and below Narrative: chills, weak, cough, sob, nausea. no edema, no pastrana Meds/Allergies Home Medications and Allergies Home Medications Medication Instructions Recorded Confirmed Last Taken Type darunavir-cobicistat [Prezcobix] 1 tab PO DAILY 05/29/21 05/29/21 05/29/21 History dolutegravir [Tivicay] 50 mg PO DAILY 05/29/21 05/29/21 05/29/21 History Allergies Allergy/AdvReac Type Severity Reaction Status Date / Time acetaminophen Allergy Severe ALGY-Hives Verified 12/12/20 10:41 PFSH Acute PFSH: Medical History AV fistula Chronic kidney disease History of chemotherapy History of testicular cancer HIV carrier Surgical History History of orchiectomy, unilateral History of removal of Port-a-Cath S/P hemodialysis catheter insertion (11/30/20) R IJ catheter exchange S/P laparotomy Lymph node biopsy Family History Denies family history of Anesthesia complication Bleeding disorder Social History (Updated 05/29/21 @ 22:13 by Bertha Last MD) Alcohol intake: never Substance/Drug Use: current Substance/Drug use type: Marijuana Adopted: No Caregiver/support person: Yes Lives independently: Yes Housing: House Current occupational status: disabled Pets and animals: No Sexually active: Yes Current gender identity: Male Josefa/Protestant: Yarsanism Vitals/I&O/Wt Last Vital Signs Temp 98.1 F 05/29/21 19:16 Pulse 108 H 05/29/21 23:00 Resp 31 H 05/29/21 23:00 BP 124/94 05/29/21 23:00 Pulse Ox 97 05/29/21 23:00 Weight last 48 hrs Weight 68.039 kg Physical Exam Narrative: EXAM NARRATIVE: comfortable on nc o2 vs noted heent- nc/at, eomi, anicteric neck supple lungs b/l ronchi heart- reg, no rub abd soft, nt, nd, +BS ext no edema, + AVF Rt IJ dialysis catheter neuro- a,a, o x 3 Data Micro: Micro: Microbiology 05/29/21 19:21 Blood Culture - Pr eliminary Blood SPECIMEN [facility]LE MARIMAR 05/29/21 19:30 Blood Culture - Pr eliminary Blood SPECIMEN [facility] A&P Additional A&P Information 36 yr old man ESRD, h/o testicular ca s/p orchiectomy and chemoradiation. 1. SOB+ cough- ID wval per PMS -check cd4 -assess for OI -agree w/ PCR for CVOID-19- he has not taken the vaccine -very high BNP- will lower EDW w/ HD as tolerated 2. ESRD- now comfortable on 2l nc02- k 5.1- plan for HD in am 3. HIV- cont outpt meds 4. hgb acceptable for ESRD 5. abg noted- mixed met acidosis and resp alkalosis- lactic acid of 2.8 noted -renal okay w/ CTA, as we will get HD in am 6. renal osteodystrophy- check pth, phos, vit d in am check hep serologies seen and examined w/ RN- telehealth visit informed consent for telehealth visit obtained time spent 50 minutes Consult Attestations Medical Necessity Statement: per medcine Time Spent in Patient Care: Greater than 35 minutes Coding Level of Care Code [facility] Representative for Jignesh Emerson
[2021-05-29 23:51] LABS: Procalcitonin 0.52 ng/mL (0-0.5)
[2021-05-29] MEDS: diphenhydrAMINE 50 mg/mL SDV 1mL 25 MG IVP (23:55)
[2021-05-30] VITALS (16 sets, daily range): BP systolic 108–151; BP diastolic 68–127; PULSE 22–108; RESP 12–27; TEMP 36.3–36.6; O2SAT 91–100
[2021-05-30] MEDS: iodixanol 320 mg/mL 100mL Btl IV
--- NOTE | 2021-05-30 00:31 | USCV_ITS ---
Vivek Harden Age: 36 Gender: M : 1985 Exam Date: 05/30/2021 14:01 Ordering Phys: Bertha Last MD Technologist: Exam Location: [facility] [place]: SOB BP: 151 / 96 HR: 95 Rhythm: Sinus Technical Quality: Excellent MEASUREMENTS (Male / Female) Normal Values 2D ECHO LV Diastolic Diameter PLAX 5.7 cm 4.2 - 5.9 / 3.9 - 5.3 cm LV Systolic Diameter PLAX 4.8 cm IVS Diastolic Thickness 1.1 cm 0.6 - 1.0 / 0.6 - 0.9 cm IVS Systolic Thickness 1.4 cm LVPW Diastolic Thickness 1.2 cm 0.6 - 1.0 / 0.6 - 0.9 cm LVPW Systolic Thickness 1.6 cm LVOT Diameter 2.1 cm LV Ejection Fraction 2D Teich 32.1 % LV Ejection Fraction MOD 2C 47.0 % LV Ejection Fraction 2C AL 47.5 % LA Diameter 3.9 cm LA Width 4.8 cm LA Height 6.7 cm RA Width 5.8 cm RA Height 5.7 cm Aorta at Sinotubular Diameter 2.4 cm DOPPLER AV Peak Velocity 156.0 cm/s LVOT Peak Velocity 114.0 cm/s AV Area Cont Eq vti 2.3 cm squared AV Area Cont Eq pk 2.4 cm squared MV Area PHT 5.0 cm squared Mitral E to A Ratio 0.8 MV E' Velocity 43.0 cm/s Mitral E to MV E' Ratio 12.8 Mitral E to LV E' Lateral Ratio 12.4 Mitral E to LV E' Septal Ratio 13.2 TR Peak Velocity 360.0 cm/s TR Peak Gradient 51.8 mmHg TV Peak E Velocity 108.0 cm/s Right Atrial Pressure 3.0 mmHg Pulmonary Artery Systolic Pressu 54.8 mmHg FINDINGS Left Ventricle Normal left ventricular cavity size. Moderately decreased left ventricular systolic function. Left ventricular ejection fraction is estimated at 30-35%. Moderate global hypokinesis. Grade II diastolic dysfunction, moderately elevated filling pressures. Right Ventricle Normal right ventricular size and systolic function. Right ventricular systolic pressure 52 mmHg. Right Atrium Upper normal right atrial size. Left Atrium Moderately increased left atrial size. Mitral Valve Mildly thickened mitral valve. No mitral valve stenosis. Mild- moderate mitral valve regurgitation. Aortic Valve Structurally normal trileaflet aortic valve. No aortic valve stenosis. No aortic valve regurgitation. Tricuspid Valve Structurally normal tricuspid valve. No tricuspid valve stenosis. Moderate tricuspid valve regurgitation. Pulmonic Valve Structurally normal pulmonic valve. No pulmonary valve stenosis. No pulmonary valve regurgitation. Pericardium Trivial to small pericardial effusion (more along right atrium and right ventricle). No evidence of hemodynamic compromise. Aorta Normal-sized aortic root. CONCLUSIONS 1. Normal left ventricular cavity size. Moderately decreased left ventricular systolic function. Left ventricular ejection fraction is estimated at 30-35 %. Moderate global hypokinesis. Grade II diastolic dysfunction, moderately elevated filling pressures. 2. Normal right ventricular size and systolic function. 3. Moderate pulmonary hypertension with pulmonary artery pressure estimated at 52 mmHg. 4. Moderate tricuspid valve regurgitation. 5. Mild-moderate mitral valve regurgitation. 6. No prior similar studies to compare. Shelbi Johnson MD (Electronically Signed) Final Date: 30 May 2021 19:28 S
[2021-05-30 00:58] LABS: Troponin T (5th) Once 127 ng/L (0-15)
[2021-05-30] MEDS: ondansetron 2 mg/ML SDV 2 mL 4 MG IVP (01:41)
[2021-05-30] MEDS: FUROsemide 10 mg/mL SDV 10mL 60 MG IVP (01:41)
[2021-05-30] MEDS: heparin 5,000 unit/mL INJ 1 mL 5000 UNIT SUBCUT ×2 (01:46→23:08)
--- NOTE | 2021-05-30 02:00 | ECG_ITS ---
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 Measurements Intervals [place] Rate: 102 P: 89 NV: 144 QRS: 58 QRSD: 90 T: 101 QT: 374 QTc: 488 Interpretive Statements SINUS TACHYCARDIA POSSIBLE LEFT ATRIAL ENLARGEMENT [-0.1mV P-WAVE IN V1/V2] ABNORMAL RHYTHM ECG Compared to ECG 05/29/2021 19:36:49 T-wave abnormality no longer present Possible ischemia no longer present Electronically Signed On 05-30-2021 19:34:09 CDT by Eran Beasley M.D. [id number]
[2021-05-30 02:35] LABS: Troponin(5th) Baseline 119 ng/L (0-15)
[2021-05-30 04:47] LABS: Basophils % 0.4 %; Eosinophils % 0.4 %; Hematocrit 35.2 % (42.0-52.0); Lymphocytes # 0.5 10^3/uL (0.8-4.8); Lymphocytes % 19.7 %; Mean Corpuscular HGB Conc 31.3 g/dL (30.0-36.0); Mean Corpuscular Hemoglobin 27.4 pg (28.0-34.0); Mean Corpuscular Volume 87.6 fl (80-94); Mean Platelet Volume 11.4 fL (7.4-10.4); Monocytes # 0.1 10^3/uL (0.2-0.9); Monocytes % 4.2 %; Neutrophils # 1.98 10^3/uL (1.8-7.7); Neutrophils % 74.9 %; Nucleated Red Blood Cells % 0.8 %; Platelet Count 163 10^3/cmm (130-400); Red Blood Count 4.02 10^6/uL (4.1-5.3); Red Cell Distribution Width 17.7 % (12.1-15.1); White Blood Count 2.6 10^3/uL (4.0-10.0)
[2021-05-30 04:53] LABS: INR 1.18 (0.8-1.2); Partial Thromboplastin Time 30.1 SECONDS (23.9-36.7)
[2021-05-30 05:02] LABS: D Dimer 5.78 ug/mIFEU (0-0.59)
[2021-05-30 05:06] LABS: Calcium 8.2 mg/dL (8.5-10.5)
[2021-05-30] MEDS: morphine 4 mg/mL SDV 1 mL 2 MG IVP (05:06)
[2021-05-30 05:12] LABS: Parathyroid Hormone 928.9 pg/mL (15-65)
[2021-05-30 05:14] LABS: Hepatitis B Surface AB 53.8 (11.5-1000); Hepatitis B Surface Antigen Non-Reactive (Nonreactive); Hepatitis C Virus Antibody Non-Reactive (Nonreactive)
[2021-05-30 05:17] LABS: Procalcitonin 0.47 ng/mL (0-0.5); Thyroid Stimulating Hormone 2.74 uIU/mL (0.27-4.20)
[2021-05-30 05:25] LABS: 25 Hydroxy Vitamin D 14 ng/mL (30-100)
[2021-05-30 05:36] LABS: Alanine Aminotransferase 45 U/L (0-41); Albumin Level 3.5 g/dL (3.5-5.2); Alkaline Phosphatase 88 IU/L (40-130); Anion Gap 26.5 (5-19); Aspartate Amino Transferase 57 U/L (0-40); Blood Urea Nitrogen 71 mg/dL (6-20); C Reactive Protein 2.9 mg/L (0.0-4.9); Calcium 8.2 mg/dL (8.5-10.5); Carbon Dioxide 15 mmol/L (22-29); Chloride 103 mmol/L (98-107); Globulin 4.5 g/dL (1.3-4.6); Glucose 126 mg/dL (65-115); Magnesium 2.5 mg/dL (1.7-2.3); Osmolality Calculated 306 mOsm/kg (285-295); Sodium 137 mmol/L (136-145); Total Bilirubin 0.4 mg/dL (0.15-1.2)
[2021-05-30 05:53] LABS: Ferritin 2051 ng/mL (30-400)
[2021-05-30 05:56] LABS: Creatine Phosphokinase 637 U/L (39-308); Phosphorus 9.2 mg/dL (2.5-4.5); Potassium 7.5 mmol/L (3.5-5.1); Troponin 5 2HR 113.9 ng/L (0-15); Troponin 5 2HR Delta -5.1 ABS# (0-10)
--- NOTE | 2021-05-30 06:04 | ECG_ITS ---
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 Measurements Intervals [place] Rate: 106 P: 83 KS: 182 QRS: 18 QRSD: 90 T: 92 QT: 351 QTc: 467 Interpretive Statements SINUS TACHYCARDIA POSSIBLE LEFT ATRIAL ENLARGEMENT [-0.1mV P-WAVE IN V1/V2] ABNORMAL QRS-T ANGLE [QRS-T AXIS DIFFERENCE > 60] Compared to ECG 05/30/2021 02:11:11 No significant changes Electronically Signed On 05-30-2021 19:34:58 CDT by Eran Beasley M.D. [id number]
[2021-05-30] MEDS: calcium gluconate 0.1 gm/mL 10% SDV 10mL 1 GM IVP (06:33)
[2021-05-30] MEDS: insulin regular-human 10 UNIT in SYRINGE 1 EACH IVP (06:33)
[2021-05-30] MEDS: dextrose 50% syringe 50 mL IVP (06:34)
--- NOTE | 2021-05-30 07:14 | PM.PN ---
Subjective Subjective: Interval history: upset, sob, cough, weak Medications: Reviewed: Yes Medication Review Details: Current Medications Bisacodyl (Bisacodyl 5 Mg Tablet) 10 mg PO DAILY PRN; Protocol PRN Reason: Constipation (see protocol) Guaifenesin/Codeine Phosphate (Guaifenesin-Codeine Udc 10 Ml) 5 ml PO Q4H PRN PRN Reason: COUGH Heparin Sodium (Beef Lung) (Heparin 5,000 Unit/Ml Inj 1 Ml) 5,000 unit SUBCUT Q12H MIGUEL Last Admin: 05/30/21 01:46 Dose: 5,000 unit Documented by: Albumin Human (Albumin) 12.5 gm in 50 mls @ 60 mls/hr IV PRN PRN PRN Reason: Hypotension and/or symptomatic Morphine Sulfate (Morphine 4 Mg/Ml Sdv 1 Ml) 2 mg IVP Q4H PRN PRN Reason: respiratory distress Last Admin: 05/30/21 05:06 Dose: 2 mg Documented by: Non-Formulary Medication (Darunavir-Cobicistat [Prezcobix]) 1 tab PO DAILY MIGUEL Non-Formulary Medication (Dolutegravir [Tivicay]) 50 mg PO DAILY MIGUEL Ondansetron HCl (Ondansetron 2 Mg/Ml Sdv 2 Ml) 4 mg IVP Q4H PRN PRN Reason: vomiting, or N/V if npo Pantoprazole Sodium (Pantoprazole Dr 40 Mg Tablet) 40 mg PO DAILY MIGUEL Vitals/I&O/Wt Last Vital Signs Temp 97.7 F 05/30/21 04:00 Pulse 22 L 05/30/21 04:30 Resp 20 H 05/30/21 04:00 BP 151/111 05/30/21 04:00 Pulse Ox 98 05/30/21 04:30 05/29/21 05/30/21 05/30/21 22:59 06:59 14:59 Intake Total 1240.1 / 1240.1 Output Total 200 / 200 Balance 1040.1 / 1040.1 Weight last 48 hrs Weight 66.043 kg Weight 68.039 kg Physical Exam Narrative: EXAM NARRATIVE: comfortable on nc o2 - seen at i nitiation of dialysis vs noted heent- nc/at, eomi, anicteric neck supple lungs b/l ronchi heart- reg, no rub abd soft, nt, nd, +BS ext no edema, + AVF Rt IJ dialysis catheter neuro- a,a, o x 3 examined by HD rN- telehealth visit Data : 05/30/21 04:29 05/30/21 04:29 Micro: Microbiology 05/29/21 19:21 Blood Culture - Preliminary Blood SPECIMEN COLLECTED 05/29/21 19:30 Blood Culture - Preliminary Blood SPECIMEN COLLECTED A&P Additional A&P Information 36 yr old man ESRD, h/o testicular ca s/p orchiectomy and chemoradiation. 1. HIV and sob- -check cd4 -assess for OI or pna as per hospitalist -agree w/ PCR for CVOID-19- he has not taken the vaccine -very high BNP- will lower EDW w/ HD as tolerated 2. ESRD- hyperkalemia and sob- HD now- 4 hrs, remove 2l, 2 k bath -discussed w/ pt and HD rN 3. HIV- cont outpt meds -leukopenia 4. hgb acceptable for ESRD -ferritin 2050 5. abg noted- mixed met acidosis and resp alkalosis- lactic acid of 2.8 noted 6. CTA- 1. No evidence of pulmonary embolism. 2. Bilateral pleural effusions. 3. Findings suggestive of fluid overload/interstitial edema 4. Bilateral patchy alveolar opacities worrisome for infectious disease. also high bnp and htn- pt needs a lower EDW- he argues against fluid removal -check an echo 7. renal osteodystrophy- pth 929- start calcitriol after phos improves. start vit d 2 for now, -phos 9.2 - replace vit d =14 8. mild elevation in lft's -ck 637 9. htn- would want to lower EDW - hep serologies noted seen and examined w/ RN- telehealth visit informed consent for telehealth visit obtained time spent >30 minutes Attestations Medical Necessity Statement*: sob, esrd, htn Time Spent in Patient Care: 16 - 35 minutes Coding Level of Care Code Acute Network Operations Project Manager for Jignesh Emerson
--- NOTE | 2021-05-30 07:34 | PC.NURSE ---
Shift Note Frequent safety and comfort rounds continue. Orders and/or nursing care completed as indicated. Patient monitored for response to intervention and treatment(s). Education provided includes plan of care. Patient and/or outside dealer sales representative verbalized understanding. Will continue to monitor.
--- NOTE | 2021-05-30 08:00 | ECG_ITS ---
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 Measurements Intervals [place] Rate: 89 P: 81 PA: 146 QRS: 55 QRSD: 82 T: 119 QT: 404 QTc: 493 Interpretive Statements SINUS RHYTHM POSSIBLE LEFT ATRIAL ENLARGEMENT [-0.1mV P-WAVE IN V1/V2] MODERATE T-WAVE ABNORMALITY, CONSIDER LATERAL ISCHEMIA [-0.1+ mV T-WAVE IN I/aVL/V5/V6] Compared to ECG 05/30/2021 05:03:01 T-wave abnormality now present Possible ischemia now present Sinus tachycardia no longer present Electronically Signed On 05-30-2021 19:42:42 CDT by Eran Beasley M.D. [id number]
--- NOTE | 2021-05-30 08:34 | PC.CHAP ---
Pastoral Care Encounter/Spiritual Assessment Type of Contact [] Declined cnc operator machinist visit [] Patient/Family/Request visit [] Outpatient visit [] Follow-up visit [] Physician referral [] Code/Alert [x] Routine visit [] Staff referral [] Actively dying [] Patient sleeping [] Family support [] [] Out of room [] Palliative care [] [] Receiving care in room [] Pre-surgical visit [] Trauma [] Long length of stay [] ICU visit [] Other: Relational/Emotional Strength [] Patient feels connected with others/family/visitors/staff [] Distress [] Loneliness/isolation [] Abandonment Spirituality of Patient [] Person of Josefa [] Attends Yazidi of their Josefa [] Believes in Prayer [] Reads Bible or Mormon materials [] There are Spiritual issues to be addressed Windows Systems Architect Interventions [x] Prayer [] Active listening [] Non-anxious presence [] Spiritual/emotional support [] Crisis/trauma care [] Spiritual counseling [] Bereavement support [] Provided bereavement packet [] Provided Bible/devotional materials [] Provided toy/stuffed animal, coloring book to patient or family member [] Provided Communion [] Anointing/[place] [] Salvation [x] Completed spiritual assessment [] Other: Impact on Illness or Injury [] Angry [] Fearful [] Anxious [] Often cries [] Exhaustion [] Unable to work [] Unable to attend buddhism [] Unable to walk/stand [] Unable to read [] Unable to drive [] Unable to eat/drink [] Unable to sleep [] Unable to be with family [] Patient intubated [] Other: Summary Time spent with patient
[2021-05-30 09:04] LABS: Troponin 5 6HR 98.27 ng/L (0-15)
[2021-05-30] MEDS: pantoprazole DR 40 mg Tablet PO (11:50)
[2021-05-30] MEDS: carvedilol 3.125 mg Tablet PO ×2 (11:50→18:01)
[2021-05-30] MEDS: b-complex-vitamin c Tablet 1 EACH PO (11:51)
[2021-05-30] MEDS: citalopram 20 mg Tablet PO (11:51)
[2021-05-30] MEDS: sevelamer 800 mg Tablet 1600 MG PO ×3 (11:51→21:18)
--- NOTE | 2021-05-30 14:57 | PM.PN ---
Subjective Subjective: Interval history: Patient was seen and examined this morning after he completed the hemodialysis session. Post hemodialysis shortness of breath is improved.Denies any cough, fever, chills. His other vitals and labs have been reviewed. Medications: Reviewed: Yes Medication Review Details: Current Medications Bisacodyl (Bisacodyl 5 Mg Tablet) 10 mg PO DAILY PRN; Protocol PRN Reason: Constipation (see protocol) Guaifenesin/Codeine Phosphate (Guaifenesin-Codeine Udc 10 Ml) 5 ml PO Q4H PRN PRN Reason: COUGH Heparin Sodium (Beef Lung) (Heparin 5,000 Unit/Ml Inj 1 Ml) 5,000 unit SUBCUT Q12H MIGUEL Last Admin: 05/30/21 01:46 Dose: 5,000 unit Documented by: Albumin Human (Albumin) 12.5 gm in 50 mls @ 60 mls/hr IV PRN PRN PRN Reason: Hypotension and/or symptomatic Morphine Sulfate (Morphine 4 Mg/Ml Sdv 1 Ml) 2 mg IVP Q4H PRN PRN Reason: respiratory distress Last Admin: 05/30/21 05:06 Dose: 2 mg Documented by: Non-Formulary Medication (Darunavir-Cobicistat [Prezcobix]) 1 tab PO DAILY MIGUEL Non-Formulary Medication (Dolutegravir [Tivicay]) 50 mg PO DAILY MIGUEL Ondansetron HCl (Ondansetron 2 Mg/Ml Sdv 2 Ml) 4 mg IVP Q4H PRN PRN Reason: vomiting, or N/V if npo Pantoprazole Sodium (Pantoprazole Dr 40 Mg Tablet) 40 mg PO DAILY MIGUEL Vitals/I&O/Wt Last Vital Signs Temp 97.5 F L 05/30/21 12:16 Pulse 85 05/30/21 12:16 Resp 18 05/30/21 12:16 BP 128/80 05/30/21 12:16 Pulse Ox 91 05/30/21 12:00 05/29/21 05/30/21 05/30/21 22:59 06:59 14:59 Intake Total 1240.1 / 1240.1 300 / 300 Output Total 200 / 200 1250 / 1250 Balance 1040.1 / 1040.1 -950 / -950 Weight last 48 hrs Weight 64.3 kg Weight 66.043 kg Weight 68.039 kg Physical Exam Const: COMMON NORMALS: patient oriented x3 HENMT: COMMON NORMALS: normocephalic and atraumatic HEAD & SCALP: normocephalic and atraumatic Resp: OTHER: Bilateral minimal basal crackles present in both lung field Cardio: COMMON NORMALS: regular rate, regular rhythm, S1 normal heart sound present, S2 normal heart sound present, No gallops present (Cardio), No murmurs present (Cardio), No rub (Cardio) and Peripheral pulses 2+ throughout RATE: regular rate RHYTHM: regular rhythm HEART SOUNDS: S1 normal heart sound present and S2 normal heart sound present PERIPHERAL PULSES: Peripheral pulses 2+ throughout GI: COMMON NORMALS: Normal to inspection, nondistended, normoactive bowel sounds present, Soft to palpation, non-tender, No hepatosplenomegaly present and no masses AUSCULTATION: Yes normoactive bowel sounds PALPATION: Yes Soft to palpation and Yes No hepatosplenomegaly present RECTAL EXAM: Yes deferred Extremity: COMMON NORMALS: no clubbing, cyanosis or edema and no pedal edema Neuro: COMMON NORMALS: patient oriented x3 Data : 05/30/21 04:29 05/30/21 04:29 Micro: Microbiology 05/30/21 04:30 Bacterial Antigens - Final Urine,Voided 05/29/21 19:21 Blood Culture - Preliminary Blood SPECIMEN COLLECTED 05/29/21 19:30 Blood Culture - Preliminary Blood SPECIMEN COLLECTED A&P Assessment and plan (1) Shortness of breath: Shortness of breath likely secondary to missed dialysis: Less concern for infectious process. CTA chest: No PE:Bilateral pleural effusions. Bilateral patchy alveolar opacities. lactic acid was 1.7 Procalcitonin:0.47. WBC :2.6 Bacterial antigen panel: Negative Rapid Covid antigen: Negative Blood cultures: S/p hemodialysis today: Plan is to continue with another session of hemodialysis tomorrow. Status: Acute (2) ESRD (end stage renal disease) on dialysis: End-stage renal disease dialysis dependent on Friday. Continue routine dialysis Nephrology on board Status: Chronic (3) Hyperkalemia: S/p hemodialysis. Follow BMP Status: Acute (4) Anemia in chronic kidney disease: Monitor CBC. Transfuse to maintain hemoglobin greater than 7. Status: Chronic Qualifiers: Chronic kidney disease stage: on chronic dialysis Qualified Code(s): N18.6 - End stage renal disease; D63.1 - Anemia in chronic kidney disease; Z99.2 - Dependence on renal dialysis (5) HIV (human immunodeficiency virus infection): Status: Chronic Qualifiers: HIV symptom status: asymptomatic, with no history of HIV-related illness Qualified Code(s): Z21 - Asymptomatic human immunodeficiency virus [HIV] infection status Attestations Medical Necessity Statement*: Patient needs to be in hospital for management of shortness of breath, need for continued hemodialysis. Coding Level of Care Code Acute Sonography Technologist for [facility] Fwd Diagnoses Shortness of breath R06.02 ESRD (end stage renal disease) on dialysis N18.6; Z99.2 Hyperkalemia E87.5 Anemia in chronic kidney disease N18.6; D63.1; Z99.2 Chronic kidney disease stage: on chronic dialysis HIV (human immunodeficiency virus infection) Z21 HIV symptom status: asymptomatic, with no history of HIV-related illness
[2021-05-30 15:25] LABS: Coronavirus Test Green County Not Detected
[2021-05-31] VITALS (8 sets, daily range): BP systolic 104–148; BP diastolic 70–95; PULSE 94–112; RESP 16–112; TEMP 16–36.8; O2SAT 93–96
[2021-05-31 05:17] LABS: Basophils % 0.8 %; Eosinophils # 0.1 10^3/uL (0.0-0.8); Eosinophils % 1.7 %; Hematocrit 32.6 % (42.0-52.0); Hemoglobin 10.3 g/dL (11.7-16.6); Lymphocytes # 0.7 10^3/uL (0.8-4.8); Lymphocytes % 20.9 %; Mean Corpuscular HGB Conc 31.6 g/dL (30.0-36.0); Mean Corpuscular Hemoglobin 27.2 pg (28.0-34.0); Mean Corpuscular Volume 86.2 fl (80-94); Mean Platelet Volume 11.6 fL (7.4-10.4); Monocytes # 0.2 10^3/uL (0.2-0.9); Monocytes % 6.5 %; Neutrophils # 2.47 10^3/uL (1.8-7.7); Neutrophils % 69.8 %; Nucleated Red Blood Cells % 0.6 %; Platelet Count 143 10^3/cmm (130-400); Red Blood Count 3.78 10^6/uL (4.1-5.3); Red Cell Distribution Width 17.2 % (12.1-15.1); White Blood Count 3.5 10^3/uL (4.0-10.0)
[2021-05-31 06:08] LABS: Alanine Aminotransferase 46 U/L (0-41); Albumin Level 3.5 g/dL (3.5-5.2); Alkaline Phosphatase 85 IU/L (40-130); Anion Gap 16.6 (5-19); Aspartate Amino Transferase 51 U/L (0-40); Blood Urea Nitrogen 49 mg/dL (6-20); Calcium 8.2 mg/dL (8.5-10.5); Carbon Dioxide 27 mmol/L (22-29); Chloride 101 mmol/L (98-107); Glomerular Filtration Rate 9.4 mL/min (90-130); Glucose 87 mg/dL (65-115); Magnesium 2.3 mg/dL (1.7-2.3); Osmolality Calculated 300 mOsm/kg (285-295); Phosphorus 5.3 mg/dL (2.5-4.5); Potassium 5.6 mmol/L (3.5-5.1); Sodium 139 mmol/L (136-145); Total Bilirubin 0.3 mg/dL (0.15-1.2); Total Protein 7.5 g/dL (6.6-8.7)
--- NOTE | 2021-05-31 06:15 | PC.NURSE ---
Patient has had a good night with some S & S of sleep apnea, pt had no complaints throughout the night other than he wanted to go home
--- NOTE | 2021-05-31 06:55 | PM.PN ---
Subjective Subjective: Interval history: feels better. wants to go home. agrees to HD Medications: Reviewed: Yes Medication Review Details: Current Medications Bisacodyl (Bisacodyl 5 Mg Tablet) 10 mg PO DAILY PRN; Protocol PRN Reason: Constipation (see protocol) Carvedilol (Carvedilol 3.125 Mg Tablet) 3.125 mg PO BID [facility] Last Admin: 05/30/21 18:01 Dose: 3.125 mg Documented by: Citalopram Hydrobromide (Citalopram 20 Mg Tablet) 20 mg PO DAILY [facility] Last Admin: 05/30/21 11:51 Dose: 20 mg Documented by: Ergocalciferol (Ergocalciferol (Vitamin D2) 50,000 Unit Capsule) 50,000 unit PO Q7D [facility] Last Admin: 05/30/21 13:54 Dose: Not Given Documented by: Guaifenesin/Codeine Phosphate (Guaifenesin-Codeine Udc 10 Ml) 5 ml PO Q4H PRN PRN Reason: COUGH Heparin Sodium (Beef Lung) (Heparin 5,000 Unit/Ml Inj 1 Ml) 5,000 unit SUBCUT Q12H [facility] Last Admin: 05/30/21 23:08 Dose: 5,000 unit Documented by: Albumin Human (Albumin) 12.5 gm in 50 mls @ 60 mls/hr IV PRN PRN PRN Reason: Hypotension and/or symptomatic Morphine Sulfate (Morphine 4 Mg/Ml Sdv 1 Ml) 2 mg IVP Q4H PRN PRN Reason: respiratory distress Last Admin: 05/30/21 05:06 Dose: 2 mg Documented by: Multivitamins (L-Qkugznf-Jbugbhs C Tablet) 1 each PO DAILY [facility] Last Admin: 05/30/21 11:51 Dose: 1 each Documented by: Non-Formulary Medication (Darunavir-Cobicistat [Prezcobix]) 1 tab PO DAILY [facility] Non-Formulary Medication (Dolutegravir [Tivicay]) 50 mg PO DAILY [facility] Ondansetron HCl (Ondansetron 2 Mg/Ml Sdv 2 Ml) 4 mg IVP Q4H PRN PRN Reason: vomiting, or N/V if npo Pantoprazole Sodium (Pantoprazole Dr 40 Mg Tablet) 40 mg PO DAILY [facility] Last Admin: 05/30/21 11:50 Dose: 40 mg Documented by: Sevelamer Carbonate (Sevelamer 800 Mg Tablet) 1,600 mg PO TID [facility] Last Admin: 05/30/21 21:18 Dose: 1,600 mg Documented by: Vitals/I&O/Wt Last Vital Signs Temp 98.2 F 05/31/21 03:32 Pulse 105 H 05/31/21 05:51 Resp 19 H 05/31/21 03:32 BP 104/70 05/31/21 03:32 Pulse Ox 94 05/31/21 03:32 05/30/21 05/30/21 05/31/21 14:59 22:59 06:59 Intake Total 300 / 300 1560 / 1860 240 / 2100 Output Total 1250 / 1250 200 / 1450 Balance -950 / -950 1360 / 410 240 / 650 Weight last 48 hrs Weight 68.765 kg Weight 64.3 kg Weight 66.043 kg Weight 68.039 kg Physical Exam Narrative: EXAM NARRATIVE: comfortable in bed vs noted - bp low heent- nc/at, eomi, anicteric neck supple lungs b/l ronchi decreased heart- reg, no rub abd soft, nt, nd, +BS ext no edema, + AVF Rt IJ dialysis catheter neuro- a,a, o x 3 examined by RN- telehealth visit Data : 05/31/21 04:53 05/31/21 04:53 Micro: Microbiology 05/29/21 19:21 Blood Culture - Preliminary Blood NEGATIVE TO DATE 05/29/21 19:30 Blood Culture - Preliminary Blood NEGATIVE TO DATE 05/30/21 04:30 Bacterial Antigens - Final Urine,Voided A&P Additional A&P Information 36 yr old man ESRD, h/o testicular ca s/p orchiectomy and chemoradiation. 1. HIV - -check cd4 -assess for OI or pna as per hospitalist -outpt HAART 2. ESRD- hyperkalemia and sob- improved w/HD yesterday -repeat HD now- 3.5 hrs, remove 1-1.5l, 2 k bath -discussed w/ pt and HD rN 3. SOB improved w/ HD -note CTA- 1. No evidence of pulmonary embolism. 2. Bilateral pleural effusions. 3. Findings suggestive of fluid overload/interstitial edema 4. Bilateral patchy alveolar opacities worrisome for infectious disease. also high bnp and htn- pt needs a lower EDW- he argues against fluid removal 4. hgb acceptable for ESRD -ferritin 2050 5. bp low- consider dec 6. renal osteodystrophy- pth 929- start calcitriol and vit d 2 for now, -phos 9.2-improved to 5.3 w/ HD and binders - replace vit d =14 7. mild elevation in lft's -ck 637 - hep serologies noted seen and examined w/ RN- telehealth visit informed consent for telehealth visit obtained -please give covid-19 vaccine prior to dc time spent 30 minutes Attestations Medical Necessity Statement*: per medicine Time Spent in Patient Care: 16 - 35 minutes Coding Level of Care Code Acute Dairy Farm Manager for Jignesh Emerson
--- NOTE | 2021-05-31 10:17 | PC.CHAP ---
Pastoral Care Encounter/Spiritual Assessment Type of Contact [] Declined marketing analytics specialist visit [] Patient/Family/Request visit [] Outpatient visit [] Follow-up visit [] Physician referral [] Code/Alert [x] Routine visit [] Staff referral [] Actively dying [] Patient sleeping [] Family support [] [] Out of room [] Palliative care [] [x] Receiving care in room [] Pre-surgical visit [] Trauma [] Long length of stay [] ICU visit [] Other: Relational/Emotional Strength [x] Patient feels connected with others/family/visitors/staff [] Distress [] Loneliness/isolation [] Abandonment Spirituality of Patient [x] Person of Josefa [] Attends Faith of their Josefa [x] Believes in Prayer [] Reads Bible or Voodoo materials [] There are Spiritual issues to be addressed Sewing Machine Operator Paper Bags Interventions [x] Prayer [x] Active listening [x] Non-anxious presence [x] Spiritual/emotional support [] Crisis/trauma care [x] Spiritual counseling [] Bereavement support [] Provided bereavement packet [] Provided Bible/devotional materials [] Provided toy/stuffed animal, coloring book to patient or family member [] Provided Communion [] Anointing/[place] [] Salvation [x] Completed spiritual assessment [] Other: Impact on Illness or Injury [] Angry [] Fearful [] Anxious [] Often cries [] Exhaustion [] Unable to work [] Unable to attend tenriism [] Unable to walk/stand [] Unable to read [] Unable to drive [] Unable to eat/drink [] Unable to sleep [] Unable to be with family [] Patient intubated [] Other: Summary in for dilass, will go home today has a good attitude Time spent with patient 10 mins
--- NOTE | 2021-05-31 12:40 | PC.NURSE ---
Pt discharged home IV removed no redness or swelling noted Pts discharge instructions given along with follow up appointments. Pt had no c/o pain or discomfrt at the time of discharge.
--- NOTE | 2021-05-31 13:18 | PM.DCS ---
Discharge Providers Date of Admission: 05/30/21 17:15 Date of Discharge: May 31, 2021 Attending Provider at Admission: Bertha Last MD Attending Provider at Discharge: Brant Wiggins MD Primary Care Provider: Rebecca Montiel MD Diagnoses at Discharge Discharge Diagnosis (1) Shortness of breath: Status: Acute (2) ESRD (end stage renal disease) on dialysis: Status: Chronic (3) Hyperkalemia: Status: Acute (4) Anemia in chronic kidney disease: Status: Chronic Qualifiers: Chronic kidney disease stage: on chronic dialysis Qualified Code(s): N18.6 - End stage renal disease; D63.1 - Anemia in chronic kidney disease; Z99.2 - Dependence on renal dialysis (5) HIV (human immunodeficiency virus infection): Status: Chronic Qualifiers: HIV symptom status: asymptomatic, with no history of HIV-related illness Qualified Code(s): Z21 - Asymptomatic human immunodeficiency virus [HIV] infection status Reason for Visit Reason for Visit: RESP DISTRESS Hospital Course Hospital Course 36-year-old male with past medical history of , HIV, on HAART therapy, end-stage renal disease dialysis dependent Friday, history of testicular cancer status post chemotherapy , was admitted with chief complaint of worsening shortness of breath going on for couple of days. During the hospital stay he was managed for shortness of breath secondary to volume overload secondary to missed dialysis.Clinically less concern for pneumonia, Covid was negative , CTA chest: No PE:Bilateral pleural effusions. Bilateral patchy alveolar opacities. lactic acid was 1.7, Procalcitonin:0.47. Bacterial antigen panel: Negative.Blood culture was negative at the time of discharge. Patient was continued on routine hemodialysis to which he responded well. At the time of discharge his shortness of breath was resolved, he was not requiring any supplemental oxygen, had no cough was afebrile. 2D echo done during the hospital stay:Had shown significantly reduced ejection fraction, as well as mild pericardial effusion, patient was informed about that, and he was advised to undergo further work-up while he is in hospital, including and not limited to (stress test, possible coronary angiogram to rule out any underlying coronary artery disease), patient was not agreeable for any further work-up. He responded well to the above medical management and is being discharged in stable condition. Physical Exam Const: COMMON NORMALS: patient oriented x3 HENMT: COMMON NORMALS: normocephalic and atraumatic HEAD & SCALP: normocephalic and atraumatic Resp: COMMON NORMALS: clear to auscultation bilaterally AUSCULTATION: clear to auscultation bilaterally Cardio: COMMON NORMALS: regular rate, regular rhythm, S1 normal heart sound present, S2 normal heart sound present, No gallops present (Cardio), No murmurs present (Cardio), No rub (Cardio) and Peripheral pulses 2+ throughout RATE: regular rate RHYTHM: regular rhythm HEART SOUNDS: S1 normal heart sound present and S2 normal heart sound present PERIPHERAL PULSES: Peripheral pulses 2+ throughout GI: COMMON NORMALS: Normal to inspection, nondistended, normoactive bowel sounds present, Soft to palpation, non-tender, No hepatosplenomegaly present and no masses AUSCULTATION: Yes normoactive bowel sounds PALPATION: Yes Soft to palpation and Yes No hepatosplenomegaly present RECTAL EXAM: Yes deferred Extremity: COMMON NORMALS: no clubbing, cyanosis or edema and no pedal edema Neuro: COMMON NORMALS: patient oriented x3 Discharge Data Data Completed and Pending: Completed Studies During Hospitalization Category Date Time Status CT angio chest PE protcl [id number] Urge nt Cat Scan 05/29/21 23:28 Completed XR chest 1V cindy ble [id number] Stat Exams 05/29/21 19:16 Completed CV. echo complete * [id number] Routine Ultrasound 05/30/21 00:31 Completed Pending at discharge Category Date Time Status Blood Culture Sta t Lab 05/29/21 19:21 Results Clostridioides Di fficile PCR Routin e Lab 05/30/21 00:31 Ordered Complete Blood Co unt w/Auto AM LABS Lab 06/01/21 04:00 Ordered Complete Blood Co unt w/Auto AM LABS Lab 06/02/21 04:00 Ordered Comprehensive Met abolic Panel AM LA BS Lab 06/01/21 04:00 Ordered Comprehensive Met abolic Panel AM LA BS Lab 06/02/21 04:00 Ordered Enteric Bacterial Panel by PCR Rout ine Lab 05/30/21 00:31 Ordered Enteric Parasite Panel by PCR Isai ne Lab 05/30/21 00:31 Ordered Immunochemical Fe richar OCB Routine Lab 05/30/21 00:31 Ordered Lactoferrin Isai ne Lab 05/30/21 00:31 Ordered Magnesium AM LABS Lab 06/01/21 04:00 Ordered Magnesium AM LABS Lab 06/02/21 04:00 Ordered Miscellaneous Christine t Routine Lab 05/30/21 04:29 Received Phosphorus AM LAB S Lab 06/01/21 04:00 Ordered Phosphorus AM LAB S Lab 06/02/21 04:00 Ordered Vitamin D 1,25 Di hydroxy Routine Lab 05/30/21 04:29 Received Labs from last 24 hours 05/31/21 05/31/21 05/29/21 04:53 04:53 00:18 WBC 3.5 L RBC 3.78 L Hgb 10.3 L Hct 32.6 L MCV 86.2 MCH 27.2 L MCHC 31.6 RDW 17.2 H Plt Count 143 MPV 11.6 H Neut % (Auto) 69.8 Lymph % (Auto) 20.9 Kaufman % (Auto) 6.5 Eos % (Auto) 1.7 Baso % (Auto) 0.8 Neut # (Auto) 2.47 Lymph # (Auto) 0.7 L Kaufman # (Auto) 0.2 Eos # (Auto) 0.1 Baso # (Auto) 0.0 Nucleated RBC % (a uto) 0.6 Nucleated RBCs # 0.0 Sodium 139 Potassium 5.6 H Chloride 101 Carbon Dioxide 27 Anion Gap 16.6 BUN 49 H Creatinine 7.9 H* GFR Calculation 9.4 L Glucose 87 Calculated Osmolal ity 300 H Calcium 8.2 L Phosphorus 5.3 H Magnesium 2.3 Total Bilirubin 0.3 AST 51 H ALT 46 H Alkaline Phosphata se 85 Total Protein 7.5 Albumin 3.5 Globulin 4.0 Nasal/Oral COVID-1 9 PCR Not detected Vitals: Last Vital Signs Temp 98.2 F 05/31/21 13:14 Pulse 100 05/31/21 13:14 Resp 16 05/31/21 13:14 BP 143/83 05/31/21 13:14 Pulse Ox 96 05/31/21 08:00 Discharge Plan Discharge Patient Disposition: Home Condition: Stable Prescriptions: Continued Tivicay 50 mg tablet 50 mg PO DAILY RF: 0 Prezcobix 800-150 mg-mg tablet 1 tab PO DAILY RF: 0 citalopram 20 mg tablet 20 mg PO DAILY RF: 0 carvedilol 3.125 mg tablet 3.125 mg PO BID RF: 0 Discharge Orders: Discharge Order (Routine); Ordered 05/31/21 Ordered By: Brant Wiggins Referrals: Rebecca Montiel MD [Primary Care Provider] - 06/06/21 2:20 pm (You are scheduled to follow up and establish care with Dr Montiel on 06/06/2021 at 2:20pm. If you are unable to make this appointment please call and reschedule prior to date of appointment. ) Discharge Activity: Resume usual activity Patient Instructions: Opioid Safety Discharge Attestations Time Spent in Discharge Care*: less than 30 min Specific Discharge Activities: educating patient, educating and/or supporting family/caregiver, discussing with pcp/other providers, discussing with telephonic nurse case manager/social workers/dc planners, documenting/other paperwork and evaluating patient/reviewing data Status at Discharge: Cognitive status at discharge: cognitively intact, Behavioral status at discharge: cooperative, Functional status at discharge: independent ambulation Overall status at discharge: patient is back to baseline Quality Metrics Clinical Quality Measures During this hospital stay, did patient experience: None Coding Level of Care Code Acute [facility] DC note Diagnoses Shortness of breath R06.02 ESRD (end stage renal disease) on dialysis N18.6; Z99.2 Hyperkalemia E87.5 Anemia in chronic kidney disease N18.6; D63.1; Z99.2 Chronic kidney disease stage: on chronic dialysis HIV (human immunodeficiency virus infection) Z21 HIV symptom status: asymptomatic, with no history of HIV-related illness
--- NOTE | 2021-06-01 09:01 | PC.SOCIAL ---
discharge follow up call made. patient had no new prescriptions. patient is aware of follow up appointment with Dr. Montiel. Work note made for patient.
--- NOTE | 2021-06-02 20:29 | PM.MISC ---
Miscellaneous Note Purpose of Documentation: post discharge lab results reviewed Note: Results of CD4 came back after DC. Attempt to reach patient this evening unsuccessful. Have sent message via [email or web address] to Dr Montiel (appt on 06/06) and Dr Palmer whom he has seen before. Also sent the follow email to Britta Montiel to facilitate multiple avenues of notifying patient of results. This email was also forwarded to Dr. Palmer and Dr Montiel. Vivek Harden, 83 Results back after discharge LYMPHOCYTE SUBSET PANEL 5 CB % CD4 7 L 30-61 % ABSOLUTE CD4+ CELLS 36 L 490-1740 cells/uL ABSOLUTE LYMPHOCYTES 488 L 850-3900 cells/uL CD4 is VERY LOW, needs to see Dr Estela abarcap Needs prophylactic antibiotics for PCP and MAC at least I believe I sent message to Estela/Estela clinical team and Dr Montiel/Dr Montiel clinical team He has seen Dr Palmer already I could not reach him Can you call patient and make sure he is aware of this finding He is HIV positive and reported compliance with antiretrovirals
--- NOTE | 2021-06-05 09:14 | PC.SOCIAL ---
Dr Last notified this nurse of patient low CD 4 counts and wanted follow up to ensure he has an appt to see Dr Palmer and to see if prophylaxis abx required. Set up earliest appt available for Dr Palmer on 06/12/21 at 12 noon via telehealth. Sent email to verify if any prophylaxis is required and per Dr Palmer no new medications required since patient is on Dapsone currently. Called and updated patient regarding low CD 4 counts and to practice good hygiene and protect self as much as possible from infections. Advised if he has to be in public to wear mask and wash hands often. Avoid anyone who is known to be ill. He verbalized understanding and he was asked to be sure and complete telehealth visit next Friday with Dr Palmer. Patient agreed to do so. NO further action needed. Updated Dr Last and Dr Palmer of conversation with patient. Patient did agree he is on the Dapsone medication.
[2021-06-07 09:38] LABS: Vit D 1,25 (Oh)2, Total 37 pg/mL (18-72); Vit D2 1,25 (Oh)2 15 pg/mL; Vit D3 1,25 (Oh)2 22 pg/mL
== END 2021-05-31 13:37 | disposition home or self-care (01) | DRG 683 ==
LOC: ER 23:09 → ER IP 05-30 00:27 → CSU 05-30 01:00
PROVIDERS: Internal Medicine Nephrology; Admitting Provider Hospitalist; Emergency Provider Emergency Medicine; PCP Family Medicine; Visit Provider Internal Medicine
DX: N18.6 End stage renal disease (principal); B20 Human immunodeficiency virus [HIV] disease; Z99.2 Dependence on renal dialysis; Z92.21 Personal history of antineoplastic chemotherapy; Z92.3 Personal history of irradiation; Z85.47 Personal history of malignant neoplasm of testis; Z90.79 Acquired absence of other genital organ(s); F17.210 Nicotine dependence, cigarettes, uncomplicated; D63.1 Anemia in chronic kidney disease; F12.90 Cannabis use, unspecified, uncomplicated; E87.5 Hyperkalemia; Z79.899 Other long term (current) drug therapy
CPT/HCPCS: 36415; 36600; 71045; 71275; 80053; 81001; 82306; 82310; 82550; 82652; 82728; 82803; 83605; 83735; 83880; 83970; 84100; 84145; 84443; 84484; 85025; 85378; 85610; 85730; 86140; 86355; 86357; 86359; 86360; 86403; 86706; 86803; 87040; 87340; 87420; 87426; 87635; 93005; 93306; 94640; 96372; 96374; 96375; 99285; G0378; J0610; J1100; J1200; J1644; J1815; J1940; J2250; J2270; J2405; J3490; J3535; Q9967

== ENCOUNTER 2021-10-21 20:26 | Inpatient (IN) | payer MEDICARE, MEDICAID, SELFPAY ==
[2021-10-21 20:32] VITALS: BP 133/97; PULSE 145; RESP 22; TEMP 37.2; O2SAT 96; BMI 22.0
--- NOTE | 2021-10-21 20:46 | ECG_ITS ---
[facility] Test Date: 2021-10-21 Pat Name: Vviek Harden Department: Room: Gender: Male Direct Mail Clerk: : 1985 Requested By: Narayan Mckee Order Number: [id number] Hooks MD: Eran Beasley M.D. Measurements Intervals [place] Rate: 142 P: 79 AL: 131 QRS: 48 QRSD: 69 T: 71 QT: 330 QTc: 507 Interpretive Statements SINUS TACHYCARDIA, POSSIBLE ATRIAL FLUTTER NONSPECIFIC T-WAVE ABNORMALITY ABNORMAL RHYTHM ECG Compared to ECG 05/30/2021 11:36:28 Sinus rhythm no longer present Possible ischemia no longer present T-wave abnormality still present Electronically Signed On 10-22-2021 23:51:22 SERVICE DESK ASSOCIATE by Eran Beasley M.D. [id number]
--- NOTE | 2021-10-21 20:58 | ED_ITS ---
Documented by User: ANTWAN Flores 10/22/21 03:18 HPI - COVID General: Chief Complaint: COVID symptoms Stated Complaint: SOB Time Seen by Provider: 10/21/21 20:44 Triage information: Has fever, cough or shortness of breath . No known COVID + exposure last 14 days History of Present Illness: HPI Narrative: Patient is a 36-year-old male who comes to the ED with shortness of breath. Past medical history of congestive heart failure, HIV and CKD and currently on dialysis for the past 6 years. He has not missed any recent dialysis treatments. Patient says that he has been having increased shortness of breath for the past 2 months. He says he has been to a couple different facilities to get treated over the past 2 months. He was recently seen at another hospital approximately 1 month ago and treated for pneumonia. He has been on antibiotics at home and finished his last dose approximately 2 weeks ago. He states shortness of breath is continued even after treatment. Shortness of breath gets worse up on exertion. When patient is laying flat shortness of breath improves. He also endorses having some very mild dull chest pain that is centrally located and started approximately 2 days ago. Reports having a productive cough and says that he has a little bit of blood in his sputum. Hemoptysis started couple hours ago. patient is not on any oxygen at home. Denies any fevers, upper respiratory symptoms, abdominal pain, nausea/vomiting, bladder or bowel symptoms. Endorses some current anxiety. COVID 19 common symptoms: positive productive cough and dyspnea; negative fever(s), chills, non-productive cough, fatigue, headache(s), throat pain, nasal congestion, nausea, vomiting or diarrhea COVID 19 other sytmptoms: positive chest pain COVID Results: SARS-CoV-2 Antigen (Rapid) Negative (Negative) 05/29/21 19:30 05/29/21 SARS-CoV-2 RNA (RT-PCR) Not detected (NOT DETECTED) 11/10/20 11:04 11/10/20 Nasal/Oral Coronavirus 2019 PCR Not detected 05/29/21 00:18 05/29/21 SARS-CoV-2 (PCR) Not detected (NOT DETECT) 10/21/21 20:50 10/21/21 Coronavirus Type 229E (PCR) Not detected (NOT DETECT) 10/21/21 20:50 10/21/21 Review of Systems Const: Denies: fever(s), chills or fatigue Eyes: Denies: change in vision or eye discomfort ENMT: Denies: throat pain, odynophagia, nasal discharge or nasal congestion Card: Reports: chest pain and palpitations; Denies: edema, swelling of feet/ankles, dyspnea on exertion or orthopnea Resp: Reports: dyspnea, productive cough and hemoptysis; Denies: non-productive cough GI: Denies: abdominal pain, nausea, vomiting, diarrhea, constipation or hematochezia : Denies: flank pain, difficulty urinating, dysuria or hematuria Musc: Denies: neck pain, back pain or extremity swelling Skin/Breast: Denies: rash or new lesions Neuro: Denies: headache(s), numbness in extremities or weakness in extremities PFSH ED PFSH: Medical History Anemia in chronic kidney disease AV fistula ESRD (end stage renal disease) on dialysis History of chemotherapy History of testicular cancer HIV (human immunodeficiency virus infection) HIV carrier Hyperkalemia Shortness of breath Tachycardia Surgical History History of orchiectomy, unilateral History of removal of Port-a-Cath S/P hemodialysis catheter insertion (11/30/20) R IJ catheter exchange S/P laparotomy Lymph node biopsy Family History Denies family history of Anesthesia complication Bleeding disorder Social History Smoking and tobacco status: current every day smoker (marijuana) Alcohol intake: never Adopted: No Caregiver/support person: Yes Lives independently: Yes Housing: House Current occupational status: disabled Pets and animals: No Sexually active: Yes Current gender identity: Male Josefa/Jainism: Yazidi Physical Exam Const: COMMON NORMALS: patient oriented x3 and alert GENERAL APPEARANCE: cooperative HENMT: COMMON NORMALS: normocephalic HEAD & SCALP: normocephalic MOUTH: Normal oral and palatal mucosa present THROAT: posterior oropharynx normal and uvula midline Eye: COMMON NORMALS: Equal, round and reactive pupils present PUPIL: Yes Equal, round and reactive pupils present Neck/C-Spine: COMMON NORMALS: supple GENERAL: Yes normal visual inspection Resp: COMMON NORMALS: normal respiratory effort, No retractions and No use of accessory muscles EFFORT & INSPECTION: Yes able to speak in complete sentences and Yes tachypneic AUSCULTATION: rhonchi right lower Cardio: COMMON NORMALS: regular rhythm, S1 normal heart sound present, S2 normal heart sound present, No gallops present (Cardio), No clicks present (Cardio), No murmurs present (Cardio) and Peripheral pulses 2+ throughout RATE: tachycardic RHYTHM: regular rhythm HEART SOUNDS: S1 normal heart sound present and S2 normal heart sound present PERIPHERAL PULSES: Peripheral pulses 2+ throughout GI: COMMON NORMALS: Normal to inspection, nondistended, normoactive bowel s ounds present, Soft to palpation, non-tender and no masses PALPATION: Yes Soft to palpation : COMMON NORMALS: Yes no CVA tenderness BLADDER/KIDNEY EXAM: Yes no CVA tenderness Back/Pelvis: COMMON NORMALS: no CVA tenderness Extremity: COMMON NORMALS: normal to inspection Neuro: COMMON NORMALS: patient oriented x3 and moves all extremities SENSORIUM/ORIENTATION: Yes alert Skin: GENERAL SKIN EXAM: dry skin Course Vital Signs: Vital signs: Vital Signs Temperature 98.7 F 10/21/21 21:41 Pulse Rate 126 H 10/22/21 02:22 Respiratory Rate 22 H 10/22/21 02:01 Blood Pressure 88/73 10/22/21 02:22 Pulse Oximetry 100 10/22/21 02:22 MDM - COVID MDM Narrative: Medical decision making narrative: Patient is a 36-year-old male comes to the ED with shortness of breath. He has a past medical history of CHF, HIV, end-stage renal disease and has been on dialysis for 6 years. He has been having the shortness of breath for approximately 2 months and has been hospitalized in another facility approximately 1 month ago treated for pneumonia and discharged home on antibiotics. He says the shortness of breath has not gotten any better. Shortness of breath worsens with exertion and improves when laying flat. He endorses having some mild chest pain that is centrally located that started 2 days ago. Also reports having a productive cough with hemoptysis. Pulse 145 and respirations 22 and patient was on 4 L of O2 via nasal cannula with an O2 sat is 96%. He states he is not on any oxygen at home. Patient was sitting comfortably on exam bed only in the room. He was alert and oriented and answered all my questions accordingly. He was tachycardic and tachypneic upon exam. Creatinine level 8.3, white blood cell count normal, hemoglobin 10.9. D-dimer 5.56. First troponin was 143 and second troponin was 149 with a delta of 6. Lactic 1.6. EKG showed sinus tachycardia rate of [address] segment elevation or depression seen. Chest x-ray shows some bronchopneumonia in the right lung. I discussed this patient with Dr. Hyde and I had him involved in care/management of patient due to his acuity and he reviewed labs, EKG and imaging. Patient was given some Cardizem, IV fluids, and Ativan here in the ED. Dr. Hyde contacted the hospitalist and patient was set up to be admitted to hospital. Lab Data: Attestation: I reviewed the patient's lab results. Labs: Lab Results 10/21/21 10/21/21 10/21/21 20:50 20:50 20:50 WBC 4.2 10^3/uL 10^3/ uL (4.0-10.0) RBC 3.79 10^6/uL L 10 ^6/uL (4.1-5.3) Hgb 10.9 g/dL L g/dL (11.7-16.6) Hct 34.2 % L % (42.0-52.0) MCV 90.2 fl fl (80-94) MCH 28.8 pg pg (28.0-34.0) MCHC 31.9 g/dL g/dL (30.0-36.0) RDW 18.7 % H % (12.1-15.1) Plt Count 93 10^3/cmm L 10^ 3/cmm (130-400) MPV 11.7 fL H fL (7.4-10.4) Neut % (Auto) 75.9 % % Lymph % (Auto) 14.6 % % Bee % (Auto) 9.1 % % Eos % (Auto) 0.0 % % Baso % (Auto) 0.2 % % Neut # (Auto) 3.18 10^3/uL 10^3 /uL (1.8-7.7) Lymph # (Auto) 0.6 10^3/uL L 10^ 3/uL (0.8-4.8) Bee # (Auto) 0.4 10^3/uL 10^3/ uL (0.2-0.9) Eos # (Auto) 0.0 10^3/uL 10^3/ uL (0.0-0.8) Baso # (Auto) 0.0 10^3/uL 10^3/ uL (0.0-0.1) Nucleated RBC % (a uto) 0 % % Nucleated RBCs # 0.0 /100WBC /100W BC D-Dimer Sodium 131 mmol/L L mmol /L (136-145) Potassium 5.0 mmol/L mmol/L (3.5-5.1) Chloride 94 mmol/L L mmol/ L (98-107) Carbon Dioxide 20 mmol/L L mmol/ L (22-29) Anion Gap 22.0 H (5-19) BUN 29 mg/dL H mg/dL (6-20) Creatinine 8.3 mg/dL H* mg/d L (0.7-1.2) GFR Calculation 8.8 mL/min L mL/m in (90-130) Glucose 92 mg/dL mg/dL (65-115) POC Glucose Calculated Osmolal ity 277 mOsm/kg L mOs m/kg (285-295) Lactic Acid 1.6 mmol/L mmol/L (0.5-2.2) Calcium 8.4 mg/dL L mg/dL (8.5-10.5) Total Bilirubin 0.9 mg/dL mg/dL (0.15-1.2) AST 31 U/L U/L (0-40) ALT 18 U/L U/L (0-41) Alkaline Phosphata se 61 IU/L IU/L (40-130) Troponin T Baselin e Troponin T 120 Min [place] Troponin T C-Reactive Protein Total Protein 7.2 g/dL g/dL (6.6-8.7) Albumin 3.7 g/dL g/dL (3.5-5.2) Globulin 3.5 g/dL g/dL (1.3-4.6) Procalcitonin Coronavirus 229E ( PCR) SARS-CoV-2 (PCR) 10/21/21 10/21/21 10/21/21 20:50 20:50 20:59 WBC RBC Hgb Hct MCV MCH MCHC RDW Plt Count MPV Neut % (Auto) Lymph % (Auto) Bee % (Auto) Eos % (Auto) Baso % (Auto) Neut # (Auto) Lymph # (Auto) Bee # (Auto) Eos # (Auto) Baso # (Auto) Nucleated RBC % (a uto) Nucleated RBCs # D-Dimer 5.56 ug/mIFEU H u g/mIFEU (0-0.59) Sodium Potassium Chloride Carbon Dioxide Anion Gap BUN Creatinine GFR Calculation Glucose POC Glucose Calculated Osmolal ity Lactic Acid Calcium Total Bilirubin AST ALT Alkaline Phosphata se Troponin T Baselin e 143 ng/L H* ng/L (0-15) Troponin T 120 Min [place] Troponin T C-Reactive Protein Total Protein Albumin Globulin Procalcitonin Coronavirus 229E ( PCR) Not detected (NOT DETECT) SARS-CoV-2 (PCR) Not detected (NOT DETECT) 10/21/21 10/21/21 10/22/21 22:52 22:52 00:52 WBC RBC Hgb Hct MCV MCH MCHC RDW Plt Count MPV Neut % (Auto) Lymph % (Auto) Bee % (Auto) Eos % (Auto) Baso % (Auto) Neut # (Auto) Lymph # (Auto) Bee # (Auto) Eos # (Auto) Baso # (Auto) Nucleated RBC % (a uto) Nucleated RBCs # D-Dimer Sodium Potassium Chloride Carbon Dioxide Anion Gap BUN Creatinine GFR Calculation Glucose POC Glucose 84 mg/dL mg/dL (70-110) Calculated Osmolal ity Lactic Acid Calcium Total Bilirubin AST ALT Alkaline Phosphata se Troponin T Baselin e Troponin T 120 [place] 149.6 ng/L H ng/L (0-15) [place] Troponin T 6.6 ABS# ABS# (0-10) C-Reactive Protein 41.9 mg/L H mg/L (0.0-4.9) Total Protein Albumin Globulin Procalcitonin 23.65 ng/mL H ng/ mL (0-0.5) Coronavirus 229E ( PCR) SARS-CoV-2 (PCR) Imaging Data: CXR: Attestation: I personally reviewed and interpreted this imaging study as follows: Radiologist's impression: [address], [place] [address]QXoc ReportSigned Patient: Vivek Harden #: [id number]: 1985Acct#:[id number]/Sex: 36 / MADM Date: 10/21/21Loc: ERRoom/Bed:Attending Dr: Ordering Provider/Ordering MD: Narayan Mckee Date of Service: 10/21/21 Procedure(s): XR chest 1V portable [id number] Accession Number(s): [id number] Report Number: [id number] PROCEDURE INFORMATION: Exam: XR Chest Exam date and time: 10/21/2021 8:56 PM Age: 36 years old Clinical indication: Dyspnea; Prior surgery; Surgery date: 6+ months; Surgery type: Dialysis port; Additional info: SOB TECHNIQUE: Imaging protocol: XR of the chest. Views: 1 view. COMPARISON: CR (CHEST, ) 05/29/2021 7:31 PM FINDINGS: Tubes, catheters and devices: Right chest tunneled hemodialysis catheter terminates distal SVC. Lungs: Dense parenchymal airspace opacification in the right upper lobe. Increased perihilar interstitial lung markings on the right. Pleural spaces: Unremarkable. No pleural effusion. No pneumothorax. Heart/Mediastinum: Moderate cardiomegaly. Bones/joints: Unremarkable. XR/XR chest 1V portable [id number] IMPRESSION: Bronchopneumonia in the right lung is suspected. Radiographic follow-up is recommended to document resolution. Dictated By:Tonya Rees By:Tonya Rees Date/Time:10/21/21 2143DD/ 55 EKG Data: EKG 1: Attestation: I personally reviewed and interpreted this EKG as follows: EKG interpretation date: 10/21/21 Interpretation: Sinus tachycardia, [address] segment elevation depression seen. EKG 2: Attestation: I personally reviewed and interpreted this EKG as follows: EKG interpretation date: 10/21/21 Interpretation: 2-hour EKG?sinus tachycardia, 133 bpm, no ST segment elevation or depression seen. COVID Results: SARS-CoV-2 Antigen (Rapid) Negative (Negative) 05/29/21 19:30 05/29/21 SARS-CoV-2 RNA (RT-PCR) Not detected (NOT DETECTED) 11/10/20 11:04 11/10/20 Nasal/Oral Coronavirus 2019 PCR Not detected 05/29/21 00:18 05/29/21 SARS-CoV-2 (PCR) Not detected (NOT DETECT) 10/21/21 20:50 10/21/21 Coronavirus Type 229E (PCR) Not detected (NOT DETECT) 10/21/21 20:50 10/21/21 Discharge Plan Discharge Patient Disposition: Admitted As Inpatient Admit Provider: Brant Wiggins Coding Level of Care Code ED Landscape Crew Member for Chg Fwd Exam Comprehensive Documented by User: Gareth Hyde DO 10/22/21 03:33 HPI - COVID General: Chief Complaint: COVID symptoms Stated Complaint: SOB Time Seen by Provider: 10/21/21 20:44 COVID Results: SARS-CoV-2 Antigen (Rapid) Negative (Negative) 05/29/21 19:30 05/29/21 SARS-CoV-2 RNA (RT-PCR) Not detected (NOT DETECTED) 11/10/20 11:04 11/10/20 Nasal/Oral Coronavirus 2019 PCR Not detected 05/29/21 00:18 05/29/21 SARS-CoV-2 (PCR) Not detected (NOT DETECT) 10/21/21 20:50 10/21/21 Coronavirus Type 229E (PCR) Not detected (NOT DETECT) 10/21/21 20:50 10/21/21 PFS ED PFSH: Medical History Anemia in chronic kidney disease AV fistula ESRD (end stage renal disease) on dialysis History of chemotherapy History of testicular cancer HIV (human immunodeficiency virus infection) HIV carrier Hyperkalemia Shortness of breath Tachycardia Surgical History History of orchiectomy, unilateral History of removal of Port-a-Cath S/P hemodialysis catheter insertion (11/30/20) R IJ catheter exchange S/P laparotomy Lymph node biopsy Family History Denies family history of Anesthesia complication Bleeding disorder Social History Smoking and tobacco status: current every day smoker (marijuana) Alcohol intake: never Adopted: No Caregiver/support person: Yes Lives independently: Yes Housing: House Current occupational status: disabled Pets and animals: No Sexually active: Yes Current gender identity: Male Josefa/Jainism: Yazidi Course Vital Signs: Vital signs: Vital Signs Temperature 98.7 F 10/21/21 21:41 Pulse Rate 126 H 10/22/21 02:22 Respiratory Rate 22 H 10/22/21 02:01 Blood Pressure 88/73 10/22/21 02:22 Pulse Oximetry 100 10/22/21 02:22 MDM - COVID MDM Narrative: Medical decision making narrative: This patient was originally seen by Mr. Rafi PA-C. I agree with his history, evaluation, and treatment. I called for admission of this patient. Hospitalist had written orders, and the patient and transition to inpatient status. No beds were available on the floor, so this patient was on hold in the emergency department. I was called to the bedside for CODE BLUE status, with the patient lost his pulse. Evidently, he had been up to the bedside commode, taken off his oxygen, and had gotten extremely short of breath. He called for help, nurses found him in respiratory distress. And attempting to hook him back up to oxygen, he suddenly lost pulses. Chest compressions were started immediately. The hospitalist was in the room as well. The patient was in PEA on the monitor. Epinephrine was given during chest compressions, [id number] oxygenation was provided, until I intubated the patient on the second round of CPR with a 8 oh tube using a Brittney 4 blade. 24 at the lip. He had good breath sounds and color change following. The patient was resuscitated, and ROSC was achieved. He then went to the ICU. Lab Data: Labs: Lab Results 10/21/21 10/21/21 10/21/21 20:50 20:50 20:50 WBC 4.2 10^3/uL 10^3/ uL (4.0-10.0) RBC 3.79 10^6/uL L 10 ^6/uL (4.1-5.3) Hgb 10.9 g/dL L g/dL (11.7-16.6) Hct 34.2 % L % (42.0-52.0) MCV 90.2 fl fl (80-94) MCH 28.8 pg pg (28.0-34.0) MCHC 31.9 g/dL g/dL (30.0-36.0) RDW 18.7 % H % (12.1-15.1) Plt Count 93 10^3/cmm L 10^ 3/cmm (130-400) MPV 11.7 fL H fL (7.4-10.4) Neut % (Auto) 75.9 % % Lymph % (Auto) 14.6 % % Bee % (Auto) 9.1 % % Eos % (Auto) 0.0 % % Baso % (Auto) 0.2 % % Neut # (Auto) 3.18 10^3/uL 10^3 /uL (1.8-7.7) Lymph # (Auto) 0.6 10^3/uL L 10^ 3/uL (0.8-4.8) Bee # (Auto) 0.4 10^3/uL 10^3/ uL (0.2-0.9) Eos # (Auto) 0.0 10^3/uL 10^3/ uL (0.0-0.8) Baso # (Auto) 0.0 10^3/uL 10^3/ uL (0.0-0.1) Nucleated RBC % (a uto) 0 % % Nucleated RBCs # 0.0 /100WBC /100W BC D-Dimer Sodium 131 mmol/L L mmol /L (136-145) Potassium 5.0 mmol/L mmol/L (3.5-5.1) Chloride 94 mmol/L L mmol/ L (98-107) Carbon Dioxide 20 mmol/L L mmol/ L (22-29) Anion Gap 22.0 H (5-19) BUN 29 mg/dL H mg/dL (6-20) Creatinine 8.3 mg/dL H* mg/d L (0.7-1.2) GFR Calculation 8.8 mL/min L mL/m in (90-130) Glucose 92 mg/dL mg/dL (65-115) POC Glucose Calculated Osmolal ity 277 mOsm/kg L mOs m/kg (285-295) Lactic Acid 1.6 mmol/L mmol/L (0.5-2.2) Calcium 8.4 mg/dL L mg/dL (8.5-10.5) Total Bilirubin 0.9 mg/dL mg/dL (0.15-1.2) AST 31 U/L U/L (0-40) ALT 18 U/L U/L (0-41) Alkaline Phosphata se 61 IU/L IU/L (40-130) Troponin T Baselin e Troponin T 120 Min [place] Troponin T C-Reactive Protein Total Protein 7.2 g/dL g/dL (6.6-8.7) Albumin 3.7 g/dL g/dL (3.5-5.2) Globulin 3.5 g/dL g/dL (1.3-4.6) Procalcitonin Coronavirus 229E ( PCR) SARS-CoV-2 (PCR) 10/21/21 10/21/21 10/21/21 20:50 20:50 20:59 WBC RBC Hgb Hct MCV MCH MCHC RDW Plt Count MPV Neut % (Auto) Lymph % (Auto) Bee % (Auto) Eos % (Auto) Baso % (Auto) Neut # (Auto) Lymph # (Auto) Bee # (Auto) Eos # (Auto) Baso # (Auto) Nucleated RBC % (a uto) Nucleated RBCs # D-Dimer 5.56 ug/mIFEU H u g/mIFEU (0-0.59) Sodium Potassium Chloride Carbon Dioxide Anion Gap BUN Creatinine GFR Calculation Glucose POC Glucose Calculated Osmolal ity Lactic Acid Calcium Total Bilirubin AST ALT Alkaline Phosphata se Troponin T Baselin e 143 ng/L H* ng/L (0-15) Troponin T 120 Min [place] Troponin T C-Reactive Protein Total Protein Albumin Globulin Procalcitonin Coronavirus 229E ( PCR) Not detected (NOT DETECT) SARS-CoV-2 (PCR) Not detected (NOT DETECT) 10/21/21 10/21/21 10/22/21 22:52 22:52 00:52 WBC RBC Hgb Hct MCV MCH MCHC RDW Plt Count MPV Neut % (Auto) Lymph % (Auto) Bee % (Auto) Eos % (Auto) Baso % (Auto) Neut # (Auto) Lymph # (Auto) Bee # (Auto) Eos # (Auto) Baso # (Auto) Nucleated RBC % (a uto) Nucleated RBCs # D-Dimer Sodium Potassium Chloride Carbon Dioxide Anion Gap BUN Creatinine GFR Calculation Glucose POC Glucose 84 mg/dL mg/dL (70-110) Calculated Osmolal ity Lactic Acid Calcium Total Bilirubin AST ALT Alkaline Phosphata se Troponin T Baselin e Troponin T 120 [place] 149.6 ng/L H ng/L (0-15) Delta Troponin T 6.6 ABS# ABS# (0-10) C-Reactive Protein 41.9 mg/L H mg/L (0.0-4.9) Total Protein Albumin Globulin Procalcitonin 23.65 ng/mL H ng/ mL (0-0.5) Coronavirus 229E ( PCR) SARS-CoV-2 (PCR) COVID Results: SARS-CoV-2 Antigen (Rapid) Negative (Negative) 05/29/21 19:30 05/29/21 SARS-CoV-2 RNA (RT-PCR) Not detected (NOT DETECTED) 11/10/20 11:04 11/10/20 Nasal/Oral Coronavirus 2019 PCR Not detected 05/29/21 00:18 05/29/21 SARS-CoV-2 (PCR) Not detected (NOT DETECT) 10/21/21 20:50 10/21/21 Coronavirus Type 229E (PCR) Not detected (NOT DETECT) 10/21/21 20:50 10/21/21 Discharge Plan Discharge Patient Disposition: Admitted As Inpatient Admit Provider: Brant Wiggins Coding Level of Care Code ED Landscape Crew Member for g Fwd Exam Comprehensive
[2021-10-21 21:05] LABS: Basophils % 0.2 %; Hematocrit 34.2 % (42.0-52.0); Hemoglobin 10.9 g/dL (11.7-16.6); Lymphocytes # 0.6 10^3/uL (0.8-4.8); Lymphocytes % 14.6 %; Mean Corpuscular HGB Conc 31.9 g/dL (30.0-36.0); Mean Corpuscular Hemoglobin 28.8 pg (28.0-34.0); Mean Corpuscular Volume 90.2 fl (80-94); Mean Platelet Volume 11.7 fL (7.4-10.4); Monocytes # 0.4 10^3/uL (0.2-0.9); Monocytes % 9.1 %; Neutrophils # 3.18 10^3/uL (1.8-7.7); Neutrophils % 75.9 %; Nucleated Red Blood Cells % 0 %; Platelet Count 93 10^3/cmm (130-400); Red Blood Count 3.79 10^6/uL (4.1-5.3); Red Cell Distribution Width 18.7 % (12.1-15.1); White Blood Count 4.2 10^3/uL (4.0-10.0)
[2021-10-21 21:06] VITALS: O2SAT 98
[2021-10-21 21:18] LABS: Lactic Sepsis W/Reflex 1.6 mmol/L (0.5-2.2)
[2021-10-21 21:21] LABS: Alanine Aminotransferase 18 U/L (0-41); Albumin Level 3.7 g/dL (3.5-5.2); Alkaline Phosphatase 61 IU/L (40-130); Aspartate Amino Transferase 31 U/L (0-40); Blood Urea Nitrogen 29 mg/dL (6-20); Calcium 8.4 mg/dL (8.5-10.5); Carbon Dioxide 20 mmol/L (22-29); Chloride 94 mmol/L (98-107); Globulin 3.5 g/dL (1.3-4.6); Glomerular Filtration Rate 8.8 mL/min (90-130); Glucose 92 mg/dL (65-115); Osmolality Calculated 277 mOsm/kg (285-295); Sodium 131 mmol/L (136-145); Total Bilirubin 0.9 mg/dL (0.15-1.2); Total Protein 7.2 g/dL (6.6-8.7)
[2021-10-21 21:23] LABS: Troponin(5th) Baseline 143 ng/L (0-15)
[2021-10-21 21:41] VITALS: BP 117/89; PULSE 142; RESP 40; TEMP 37.1; O2SAT 95
[2021-10-21 21:42] LABS: D Dimer 5.56 ug/mIFEU (0-0.59)
[2021-10-21 22:43] LABS: Adenovirus Not Detected (NOT DETECT); Chlamydia Pneumoniae Not Detected (NOT DETECT); Coronavirus 229E,HKU1,NL63,OC4 Not Detected (NOT DETECT); Human Metapneumovirus Not Detected (NOT DETECT); Human Rhinovirus/Enterovirus Not Detected (NOT DETECT); Influenza A Not Detected (NOT DETECT); Influenza A H1 Not Detected (NOT DETECT); Influenza A H1-2009 Not Detected (NOT DETECT); Influenza A H3 Not Detected (NOT DETECT); Influenza B Not Detected (NOT DETECT); Mycoplasma Pneumoniae Not Detected (NOT DETECT); Parainfluenza Virus Type 1 Not Detected (NOT DETECT); Parainfluenza Virus Type 2 Not Detected (NOT DETECT); Parainfluenza Virus Type 3 Not Detected (NOT DETECT); Parainfluenza Virus Type 4 Not Detected (NOT DETECT); Respiratory Syncytial Virus A Not Detected (NOT DETECT); Respiratory Syncytial Virus B Not Detected (NOT DETECT); SARS-COV-2 Not Detected (NOT DETECT)
--- NOTE | 2021-10-21 22:46 | ECG_ITS ---
Test Date: 2021-10-21 Pat Name: Vivek Harden Department: Room: Gender: Male Black Puller: : 1985 Requested By: Narayan Mckee Order Number: [id number] Hooks MD: Eran Beasley M.D. Measurements Intervals [place] Rate: 133 P: 78 OK: 146 QRS: 51 QRSD: 73 T: 57 QT: 332 QTc: 496 Interpretive Statements SINUS TACHYCARDIA NONSPECIFIC T-WAVE ABNORMALITY ABNORMAL RHYTHM ECG Compared to ECG 10/21/2021 20:52:16 No significant changes Electronically Signed On 10-22-2021 23:58:43 DISTRICT ASSOCIATE JUDGE by Eran Beasley M.D. [id number]
[2021-10-21] MEDS: LORazepam 2 mg/mL INJ 1 mL IVP (22:48)
[2021-10-21] MEDS: sodium chloride 0.9% 500 ML IV (22:49)
[2021-10-21] MEDS: piperacillin-tazobactam 3.375 GM in sodium chloride 0.9% (plus) 50 ML IV (22:49)
--- NOTE | 2021-10-21 22:53 | P.HP_ITS ---
Providers/Chief Complaint Primary Care Provider: Rebecca Montiel MD Chief Complaint: SOB History of Present Illness Vivek Harden is a 36-year-old male with past medical history of , HIV, on HAART therapy,HFrEF, end-stage renal disease dialysis dependent Friday, history of testicular cancer status post chemotherapy , was admitted with chief complaint of worsening shortness of breath going on for a week and has progressively worsened Today along with shortness of breath he was aslo having active hemoptysis, he is complaining of shortness of breath with minimal exertion. He is also complaining of substernal chest pain dull in nature, nonradiating. He was recently discharged from a hospital in [place]. Upon arrival in the ER he was worked up for above-mentioned complaint: Pertinent imaging studies: CTA chest: Patient was premedicated prior to IV contrast (he was given Solu- Medrol, as well as Benadryl IV) 1. Multilobar pneumonia involving right upper and middle lobes. 2. Negative for pulmonary embolism. 3. Right pleural effusion. 4. Dilated cardiomyopathy. 5. Mild interstitial edema. EKG: Sinus tachycardia Pertinent labs: WBC : 4.2 , H&H:10.9/ 34.2 , PLT : 93 , serum sodium 131 , serum potassium 5, BUN / serum creatinine: 30/8.3 RBS: 92 , troponin trend without significant Delta , procalcitonin:23.65 , Covid PCR negative Review of Systems 2 Const: Denies: chills, body aches, change in appetite or diaphoresis Card: Denies: palpitations, swelling of feet/ankles, orthopnea or leg pain with exertion Resp: Denies: wheezing or pain on inspiration GI: Denies: abdominal pain, diarrhea or constipation : Denies: flank pain or difficulty urinating Musc: Denies: back pain, extremity pain or extremity swelling Neuro: Denies: headache(s), difficulty walking or confusion Medications/Allergies Home Medications Medication Instructions Recorded Confirmed Last Taken Type Prezcobix 1 tab PO DAILY 05/29/21 10/09/21 05/29/21 History Tivicay 50 mg PO DAILY 05/29/21 10/09/21 05/29/21 History citalopram 20 mg PO DAILY 05/30/21 10/09/21 Unknown History apixaban 2.5 mg tablet 2.5 mg PO BID 10/09/21 10/09/21 Unknown History dapsone 100 mg tablet 100 mg PO DAILY 10/09/21 10/09/21 Unknown History Allergies Allergy/AdvReac Type Severity Reaction Status Date / Time acetaminophen Allergy Severe ALGY-Hives Verified 10/09/21 10:21 aspirin Allergy ALGY-Rash Verified 10/21/21 20:41 Iodinated Contrast Media Allergy Unknown Verified 10/09/21 10:21 PFSH Acute PFSH: Medical History Anemia in chronic kidney disease AV fistula ESRD (end stage renal disease) on dialysis History of chemotherapy History of testicular cancer HIV (human immunodeficiency virus infection) HIV carrier Hyperkalemia Shortness of breath Tachycardia Surgical History History of orchiectomy, unilateral History of removal of Port-a-Cath S/P hemodialysis catheter insertion (11/30/20) R IJ catheter exchange S/P laparotomy Lymph node biopsy Family History Denies family history of Anesthesia complication Bleeding disorder Social History Smoking and tobacco status: current every day smoker (marijuana) Alcohol intake: never Adopted: No Caregiver/support person: Yes Lives independently: Yes Housing: House Current occupational status: disabled Pets and animals: No Sexually active: Yes Current gender identity: Male Josefa/Congregational: [employer] Vitals/I&O/Wt Last Vital Signs Temp 98.7 F 10/21/21 21:41 Pulse 142 H 10/21/21 21:41 Resp 40 H 10/21/21 21:41 BP 117/89 10/21/21 21:41 Pulse Ox 95 10/21/21 21:41 Weight last 48 hrs Weight 65.771 kg Physical Exam Const: COMMON NORMALS: patient oriented x3 HENMT: COMMON NORMALS: normocephalic and atraumatic HEAD & SCALP: normocephalic and atraumatic Resp: OTHER: Bilateral coarse breath sounds, Cardio: COMMON NORMALS: regular rhythm, S1 normal heart sound present, S2 normal heart sound present, No gallops present (Cardio), No murmurs present (Cardio), No rub (Cardio) and Peripheral pulses 2+ throughout RHYTHM: regular rhythm HEART SOUNDS: S1 normal heart sound present and S2 normal heart sound present PERIPHERAL PULSES: Peripheral pulses 2+ throughout GI: COMMON NORMALS: Normal to inspection, nondistended, normoactive bowel sounds present, Soft to palpation, non-tender, No hepatosplenomegaly present and no masses AUSCULTATION: Yes normoactive bowel sounds PALPATION: Yes Soft t o palpation and Yes No hepatosplenomegaly present RECTAL EXAM: Yes deferred Extremity: COMMON NORMALS: no clubbing, cyanosis or edema and no pedal edema Neuro: COMMON NORMALS: patient oriented x3 Data : 10/22/21 01:50 10/22/21 01:50 Micro: Microbiology 10/21/21 20:59 Blood Culture - Preliminary Blood SPECIMEN COLLECTED 10/21/21 20:50 Blood Culture - Preliminary Blood SPECIMEN COLLECTED A&P Assessment and plan (1) Sepsis: Status: Acute (2) Pneumonia: Status: Acute (3) Hemoptysis: Status: Acute (4) Congestive heart disease: Status: Acute (5) HIV (human immunodeficiency virus infection): Status: Acute (6) ESRD (end stage renal disease) on dialysis: Status: Acute (7) Sleep apnea: Status: Acute Additional A&P Information Vivek Harden is a 36-year-old male with past medical history of , HIV, on HAART therapy,HFrEF, end-stage renal disease dialysis dependent Friday, history of testicular cancer status post chemotherapy , was admitted with chief complaint of worsening shortness of breath going on for a week and has progressively worsened Today along with shortness of breath he was aslo having active hemoptysis, he is complaining of shortness of breath with minimal exertion. He is also complaining of substernal chest pain dull in nature, nonradiating. #Pneumonia: Hospital-acquired pneumonia. #Hemoptysis: Secondary to pneumonia, cannot rule out underlying tuberculosis given his HIV status. #End-stage renal disease dialysis dependent #HFrEF #Anemia of chronic disease #Sepsis secondary to pneumonia: Patient came in with, worsening shortness of breath, CT chest:Multilobar pneumonia involving right upper and middle lobes. Elevated procalcitonin. Follow blood culture, sputum culture Follow CD4 count Monitor x-ray chest Monitor procalcitonin Continue vancomycin and Zosyn for now Continue with routine dialysis renal consult in a.m. Possible ID consult given hemoptysis Attestations Medical Necessity Statement*: Patient needs to be in hospital for management of sepsis secondary to pneumonia. Anticipated length of stay greater than 2 midnight Time Spent in Patient Care: Greater than 35 minutes (>than 50% of time spent in counselling and/or direct pt care on unit) . Coding Level of Care Code Acute Merchandising Director for [facility] Fwd Exam Detailed Diagnoses Sepsis A41.9 Pneumonia J18.9 Hemoptysis R04.2 Congestive heart disease I50.9 HIV (human immunodeficiency virus infection) B20 ESRD (end stage renal disease) on dialysis N18.6; Z99.2 Sleep apnea G47.30
[2021-10-21] MEDS: vancomycin 1,000 MG in sodium chloride 0.9% 250 ML 250 MG IV (23:16)
--- NOTE | 2021-10-21 23:24 | CTR_ITS ---
PROCEDURE INFORMATION: Exam: CTA Chest With Contrast Exam date and time: 10/21/2021 11:24 PM Age: 36 years old Clinical indication: Cough and shortness of breath; Prior surgery; Surgery date: 6+ months; Surgery type: Port, dialysis port; Patient HX: C/O SOB, central cp and hemoptysis; Additional info: Hemoptysis, pna TECHNIQUE: Imaging protocol: Computed tomographic angiography of the chest with contrast. 3D rendering (Not supervised by radiologist): MIP and/or 3D reconstructed images were created by the technologist. Radiation optimization: All CT scans at this facility use at least one of these dose optimization techniques: automated exposure control; mA and/or kV adjustment per patient size (includes targeted exams where dose is matched to clinical indication); or iterative reconstruction. Contrast material: VISI 320; Contrast volume: 95 ml; Contrast route: INTRAVENOUS (IV); COMPARISON: CT angio chest PE protcl [id number] 05/29/2021 11:57 PM RADIATION DOSE METRICS: Total DLP (mGy-cm): 633.42 FINDINGS: Tubes, catheters and devices: Right chest tunneled hemodialysis catheter terminates at the cavoatrial junction. Pulmonary arteries: Normal. No pulmonary emboli. Aorta: Unremarkable. No aortic aneurysm. No aortic dissection. Veins: Suprarenal IVC filter is present. Distended proximal IVC and hepatic veins. Lungs: Diffuse septal thickening. Mild mosaic attenuation changes of lung parenchyma. Diffuse bronchial wall thickening. Geographic region of consolidation and ground-glass attenuation in the right upper lobe and right middle lobe. Pleural spaces: Small volume right pleural effusion. Negative for pneumothorax. Heart: Dilated cardiac chambers. Negative for pericardial effusion. Lymph nodes: Unremarkable. No enlarged lymph nodes. Retroperitoneal space: Numerous surgical clips in the upper retroperitoneum. Bones/joints: Unremarkable. No acute fracture. Soft tissues: Unremarkable. CT/CT angio chest PE protcl [id number] IMPRESSION: 1. Multilobar pneumonia involving right upper and middle lobes. 2. Negative for pulmonary embolism. 3. Right pleural effusion. 4. Dilated cardiomyopathy. 5. Mild interstitial edema.
[2021-10-21 23:25] LABS: C Reactive Protein 41.9 mg/L (0.0-4.9)
[2021-10-21 23:32] LABS: Procalcitonin 23.65 ng/mL (0-0.5)
[2021-10-21] MEDS: diphenhydrAMINE 50 mg/mL SDV 1mL 25 MG IVP (23:49)
[2021-10-21 23:55] LABS: Troponin 5 2HR Delta 6.6 ABS# (0-10)
[2021-10-21 23:56] LABS: Troponin 5 2HR 149.6 ng/L (0-15)
[2021-10-22] VITALS (154 sets, daily range): BP systolic 42–140; BP diastolic 32–91; PULSE 79–149; RESP 5–35; TEMP 36.7; O2SAT 87–100
--- NOTE | 2021-10-22 00:19 | PC.PHAR ---
Vancomycin is dosed at 750mg IVPB every 48 hours to produce a predicted trough level of 17.03 (population based pharmacokinetic analysis). A trough level has been ordered from the lab to be obtained before the fourth dose to confirm and adjust if needed.
[2021-10-22] MEDS: iodixanol 320 mg/mL 100mL Btl IV (00:20)
[2021-10-22] MEDS: azithromycin 500 MG in sodium chloride 0.9% 250 ML 250 MG IV (00:24)
[2021-10-22 01:26] LABS: Glucose Point of Care 84 mg/dL (70-110)
[2021-10-22] MEDS: propofol 1,000 MG/100 ML INJ 9.87 MG IV (01:26)
[2021-10-22 01:31] LABS: ABG PCO2 51.1 mmHg (35-45); Arterial Blood Gas Hematocrit 33.8 % (42-52); Base Excess ABG -11.1 mmol/L (-2.0-2.0); Blood Gas Allen Test Pos; Blood Gas Sample Site Femoral, left; Blood Gas Sample Type MixedVenous; Carboxyhemoglobin 1.4 %THgb (0.4-20.1); HCO3 ABG 17.7 mmol/L (22-26); HGB O2 Sat 56.8 % (95-100); Ionized Calcium Level - ABG 1.1 mmol/L (1.1-1.4); Methemoglobin 0.7 % (0.4-1.5); Oxygen Device VENT
[2021-10-22] MEDS: sodium bicarbonate 8.4% 1 mEq/mL 50mL Syr 50 MEQ IVP ×2 (01:35→01:58)
[2021-10-22] MEDS: diphenhydrAMINE 50 mg/mL SDV 1mL (01:37)
[2021-10-22] MEDS: midazolam 1 mg/mL INJ 2 mL 2 MG IVP (01:37)
--- NOTE | 2021-10-22 01:47 | XRR_ITS ---
PROCEDURE INFORMATION: Exam: XR Chest Exam date and time: 10/22/2021 1:47 AM Age: 36 years old Clinical indication: Device placement; Ett placement (vent status); Prior surgery; Surgery date: 6+ months; Surgery type: Dialysis cath; Additional info: Ng tube and et tube placement TECHNIQUE: Imaging protocol: XR of the chest. Views: 1 view. COMPARISON: CR (CHEST, ) 10/21/2021 9:07 PM FINDINGS: Tubes, catheters and devices: A dialysis catheter is placed via the right internal jugular vein with its tip at the level of the superior cavoatrial junction. A nasogastric tube is present with its tip in the proximal stomach. The proximal side port is within the distal esophagus. An endotracheal tube is placed with its tip approximately 6.4 cm from the keagan. EKG leads overlie the chest. A transcutaneous pacemaker lead is seen in the epigastrium. Lungs: There is a worsening right pulmonary infiltrate compared with yesterday's examination. Pleural spaces: Unremarkable. No pleural effusion. No pneumothorax. Heart/Mediastinum: Unremarkable. No cardiomegaly. Bones/joints: Unremarkable. XR/XR chest 1V portable [id number] IMPRESSION: 1. Endotracheal tube tip 6.4 cm from the keagan. 2. Nasogastric tube tip in proximal stomach. The proximal side port is within the distal esophagus. 3. Stable placement of the dialysis catheter. 4. Worsening right-sided pneumonia.
[2021-10-22 02:04] LABS: Basophils % 0.4 %; Hematocrit 35.6 % (42.0-52.0); Hemoglobin 10.6 g/dL (11.7-16.6); Lymphocytes # 1.2 10^3/uL (0.8-4.8); Lymphocytes % 25.4 %; Mean Corpuscular HGB Conc 29.8 g/dL (30.0-36.0); Mean Corpuscular Hemoglobin 28.9 pg (28.0-34.0); Mean Platelet Volume 12.5 fL (7.4-10.4); Monocytes # 0.2 10^3/uL (0.2-0.9); Monocytes % 3.8 %; Neutrophils # 3.17 10^3/uL (1.8-7.7); Nucleated Red Blood Cells % 0.4 %; Platelet Count 82 10^3/cmm (130-400); Red Blood Count 3.67 10^6/uL (4.1-5.3); Red Cell Distribution Width 19.2 % (12.1-15.1); White Blood Count 4.5 10^3/uL (4.0-10.0)
[2021-10-22 02:26] LABS: Anion Gap 30.9 (5-19); Blood Urea Nitrogen 30 mg/dL (6-20); Calcium 8.3 mg/dL (8.5-10.5); Carbon Dioxide 16 mmol/L (22-29); Chloride 94 mmol/L (98-107); Glomerular Filtration Rate 8.8 mL/min (90-130); Glucose 157 mg/dL (65-115); Osmolality Calculated 289 mOsm/kg (285-295); Phosphorus 7.3 mg/dL (2.5-4.5); Potassium 5.9 mmol/L (3.5-5.1); Sodium 135 mmol/L (136-145)
[2021-10-22 02:33] LABS: Lactate (Lactic Acid level) 9.7 mmol/L (0.5-2.2)
--- NOTE | 2021-10-22 02:46 | ECG_ITS ---
[facility] Test Date: 2021-10-22 Pat Name: Vivek Harden Department: Room: ICU11 Gender: Male Sign Language Interpreter: : 1985 Requested By: Narayan Mckee Order Number: [id number] Neva MD: Eran Beasley M.D. Measurements Intervals [place] Rate: 112 P: 87 MS: 154 QRS: 68 QRSD: 84 T: 88 QT: 404 QTc: 552 Interpretive Statements SINUS TACHYCARDIA POSSIBLE LEFT ATRIAL ENLARGEMENT [-0.1mV P-WAVE IN V1/V2] NONSPECIFIC ST & T-WAVE ABNORMALITY ABNORMAL RHYTHM ECG Compared to ECG 10/21/2021 22:27:43 No significant changes Electronically Signed On 10-22-2021 23:59:57 RN DISEASE MANAGEMENT by Eran Beasley M.D. [id number]
--- NOTE | 2021-10-22 02:58 | PC.NURSE ---
Patient arrived to ICU from ER at approximately 0119. Patient coded in ER, patient arrived intubated. Chest xray obtained and verified placement of ET tube and OG tube. Central line placed in ICU by Dr. Wiggins in right femoral. Family at bedside due to patients condition.
[2021-10-22] MEDS: dextrose 50% syringe 50 mL IVP (03:33)
--- NOTE | 2021-10-22 03:41 | PM.EVENT ---
Event Note Event Note: Around 10 Pm patient started patient stated that he wanted to use comode and was helped with it,thereafter shortly he became very agitated and ripped him I.V line and removed his nasal canula out as well as he also started complaining of SOB and stated that he cant breathe. Immediately he was placed on Oxygen via nasal canula he quickly became unresponsive and lost Pulse.Code blue was called, high quality CPR was started patient was placed on Monitor and initial Rhythm was PEA, epinephrine were administered as per ACLS Protocol and high quality CPR was continued,while intubating the patient during code blood clot was observed in the airway.ROSC was achieved after 10 Mins of Code. Patient was transferred to MICU, and was continued on mechanical ventilation. Central line was placed,routine labs were obtained, abg was done,patient was also placed on bicarbonate drip was started for severe metabolic acidosis as well as hyperkalemia correction was done.Post code patient was also given I.V Solumedrol as well as I.V Benadryl thinking possibility of possible contrast allergy. Patient is currently requiring minimum of ventilator support and is currently requiring minimum of levophed, he is on versed, fentanyl as well as propofol for sedation. Event Notes Attestations Time Spent in Patient Care: Greater than 35 minutes Critical care time:50 Mins The high probability of a clinically significant, sudden or life threatening deterioration of the patient's [] system(s) required my full and direct attention, intervention and personal management. The critical care time is as shown. This time is in addition to time spent performing any reported procedures but includes the following: [x] Data and vital sign review and interpretation [x] Patient assessment, examination and intervention [x] Documentation [x] Medication orders and management
--- NOTE | 2021-10-22 03:42 | PM.ACPR ---
Acute Procedures Central Line Placement^: Right Femoral: Time out performed: Yes Patient placed on monitor/pulse ox: Yes MD prep: mask, gown and gloves Central line prep: Chlorhexidine scrub Local anesthesia used: lidocaine 1% Ultrasound used for placement: Yes Central line lumen inserted: triple Post procedure: sutured in place, good blood return, all ports aspirated, flushed, capped and sterile dressing applied Patient tolerated procedure: well and no complications Complications: none Additional comments: The high probability of a clinically significant, sudden or life threatening deterioration of the patient's [] system(s) required my full and direct attention, intervention and personal management. The critical care time is as shown. This time is in addition to time spent performing any reported procedures but includes the following: [x] Data and vital sign review and interpretation [x] Patient assessment, examination and intervention [x] Documentation [x] Medication orders and management
[2021-10-22] MEDS: insulin regular-human 5 UNIT in SYRINGE 1 EACH 1 UNIT IVP (03:46)
[2021-10-22] MEDS: sodium bicarbonate 50 MEQ in sodium chloride 0.45% 1,000 ML IV (03:46)
[2021-10-22] MEDS: sodium polystyrene sulfonate 15 gm/60 mL Btl PO (03:46)
[2021-10-22 03:51] LABS: Troponin 5 6HR Delta 1.9 ng/L (0-12)
[2021-10-22] MEDS: dextrose 5% 250 ML (04:06)
[2021-10-22] MEDS: dextrose 50% syringe 50 mL 25 ML IVP (04:19)
[2021-10-22 04:25] LABS: Troponin 5 6HR 144.9 ng/L (0-15)
[2021-10-22 05:14] LABS: ABG PCO2 32.2 mmHg (35-45); ABG PH Result 7.43 (7.35-7.45); Arterial Blood Gas Hematocrit 32.7 % (42-52); Base Excess ABG -2.6 mmol/L (-2.0-2.0); Blood Gas Allen Test Pos; Blood Gas Operator Identificat JB; Blood Gas Sample Site Radial, right; Blood Gas Sample Type Arterial; Carboxyhemoglobin 1.2 %THgb (0.4-20.1); HCO3 ABG 21.1 mmol/L (22-26); HGB O2 Sat 96.3 % (95-100); Methemoglobin 1.1 % (0.4-1.5); Oxygen Device VENT; Oxygen Saturation ABG 98.6; Potassium Level - ABG 4.4 mmol/L (3.5-5.0); Total Hemoglobin 10.7 g/dL (14-18)
--- NOTE | 2021-10-22 08:27 | P.PN_ITS ---
Subjective Subjective: Interval history: Overnight labs H&P and acute events noted. This morning patient is on Levophed 2 mics. Remains intubated sedated, currently on fentanyl and Versed. Currently on FiO2 40%, PEEP 6, TV 400. Currently on additional history: Patient is previously known to me from the infectious disease clinic where I had seen him in November 2020 as a new HIV patient. Diagnosed with HIV in 2011 after presenting for testicular cancer. He underwent unilateral orchiectomy at the time and chemoradiation, currently cancer free per him. He is on treatment with Dolutegravir and Darunavir/cobicistat, follows with HIV clinic in [place]. He was also on concomitant dapsone prophylaxis for PJP however uncertain as to the compliance on the same. Last known CD4 count in November 2020 was reportedly 170, on a more recent admission here in May 2021 CD4 count was only at 34. I do not have a viral load in the past year. He has missed several appointments in the clinic for follow-up due to being hospitalized at various different hospitals for shortness of breath, hemoptysis, pleural effusions and possible pneumonias at least since May of last year. CTA of the chest from overnight is negative for any PE. On my assessment there is dense consolidation in RUL and RML. Medications: Reviewed: Yes Vitals/I&O/Wt Last Vital Signs Temp 98.7 F 10/21/21 21:41 Pulse 107 H 10/22/21 05:49 Resp 14 10/22/21 07:45 BP 102/76 10/22/21 04:02 Pulse Ox 94 10/22/21 07:45 10/21/21 10/22/21 10/22/21 22:59 06:59 14:59 Intake Total 1155.569 / 1155.569 Balance 1155.569 / 1155.569 Weight last 48 hrs Weight 65.771 kg Physical Exam Narrative: EXAM NARRATIVE: GEN: intubated, sedated CVS: S1S2 N RS: reduced air entry diffusely right side. Abd: Soft, nt/nd , bs+ MILLER HEAD: unable to assess Urinary Catheter Management^: Mckeon: Cath Placed During This Visit: yes Reason for Continuing Indwelling Catheter: Accurate Measurement of Urinary Output in Critically Ill Patients Urinary Catheter Date of Insertion: 10/22/21 Urinary Catheter Time of Insertion: 02:11 Data : 10/22/21 01:50 10/22/21 01:50 Micro: Microbiology 10/21/21 20:59 Blood Culture - Preliminary Blood SPECIMEN COLLECTED 10/21/21 20:50 Blood Culture - Preliminary Blood SPECIMEN COLLECTED A&P Assessment and plan (1) Sepsis: Status: Acute Qualifiers: Acute respiratory failure type: with hypoxia Sepsis acute organ dysfunction status: with acute organ dysfunction Sepsis type: sepsis due to unspecified organism Severe sepsis acute organ dysfunction type: acute respiratory failure Severe sepsis shock status: with septic shock Qualified Code(s): A41.9 - Sepsis, unspecified organism; R65.21 - Severe sepsis with septic shock; J96.01 - Acute respiratory failure with hypoxia (2) Pneumonia: Status: Acute Qualifiers: Laterality: right Lung location: lower lobe of lung Pneumonia type: due to unspecified organism Qualified Code(s): J18.9 - Pneumonia, unspecified organism (3) Hemoptysis: Status: Acute (4) Congestive heart disease: Status: Acute Qualifiers: Heart failure chronicity: acute on chronic Heart failure type: combined systolic and diastolic Qualified Code(s): I50.43 - Acute on chronic combined systolic (congestive) and diastolic (congestive) heart failure (5) HIV (human immunodeficiency virus infection): Status: Acute Qualifiers: HIV symptom status: symptomatic Qualified Code(s): B20 - Human immunodeficiency virus [HIV] disease (6) ESRD (end stage renal disease) on dialysis: Status: Acute (7) Sleep apnea: Status: Acute Qualifiers: Sleep apnea type: unspecified type Qualified Code(s): G47.30 - Sleep apnea, unspecified (8) Cardiac arrest: Status: Acute Additional A&P Information Vivek Harden is a 36-year-old male with past medical history of , HIV, on HAART therapy from [place],HFrEF, end-stage renal disease dialysis dependent Friday, history of testicular cancer HENRY currently , was admitted with chief complaint of worsening shortness of breath, hemoptysis going on over past several months, variously attributed to CHF, recurrent pneumonias, pleural effusions, multiple hospital admissions here and at OSH in [place]. Currently CTA of his chest is without any evidence of PE, it does show a dense consolidation in the right middle and lower lobes. Unknown LAST VL and CD4 count. #Right-sided dense consolidation/pneumonia along with acute respiratory failure requiring intubation and mechanical ventilation overnight. #PEA, status post cardiac arrest on 10/22/2021 at 3 AM, received CPR for approximately 10 minutes. -Currently on empiric antibiotic coverage with piperacillin tazobactam, vancomycin and azithromycin. We will continue Zosyn and vancomycin, change azithromycin to levofloxacin for broader atypical coverage. Check sputum Gram stain and culture, MRSA PCR from nares, urine bacterial and Legionella antigens, given the more subacute history of ongoing shortness of breath in an immunocompromise patient with last known CD4 of 36, will additionally exclude opportunistic infections including mycobacterial and fungal infections. Check AFB smear and MTB PCR x3 on endotracheal aspirate taken 8 hours apart, fungal culture from sputum, serum beta glucan and Aspergillus galactomannan antigens, sputum PJP PCR. Covid PCR checked overnight was negative. Depending on clinical progress may need additional bronchoscopy and/or thoracentesis for diagnostic purposes. Methemoglobin checked on ABG overnight within range at 1.1 Check viral load and CD4 count today troponin elevated range 140s, past check ~119 from May, delta <10 EKG with sinus tachycardia vs A flutter # HIV : Hold HAART for now while inpatient. Will decide further treatment base on VL and Cd4 count. If signs of virological failure, will need to be transitioned from 2 drug to 3 drug regimen. Genotype testing not available at this time. Left for his case finisher from HIV clinic at [phone] # CKD on HD: Appreciate renal recommendations Attestations Medical Necessity Statement*: ongoing admission for hypoxic resp failure, needs mechanical ventilation, iv abx, hemodialysis Critical Care Time: The high probability of a clinically significant, sudden or life threatening deterioration of the patient's [respiratory,renal,cardiac] system(s) required my full and direct attention, intervention and personal management. The critical care time is as shown. This time is in addition to time spent performing any reported procedures but includes the following: [x] Data and vital sign review and interpretation [x] Patient assessment, examination and intervention [x] Documentation [x] Medication orders and management Critical Care Time (min): 60 Coding Level of Care Code Acute Machine Stamper for [facility] Diagnoses Sepsis A41.9; R65.21; J96.01 Acute respiratory failure type: with hypoxia Sepsis acute organ dysfunction status: with acute organ dysfunction Sepsis type: sepsis due to unspecified organism Severe sepsis acute organ dysfunction type: acute respiratory failure Severe sepsis shock status: with septic shock Pneumonia J18.9 Laterality: right Lung location: lower lobe of lung Pneumonia type: due to unspecified organism Hemoptysis R04.2 Congestive heart disease I50.43 Heart failure chronicity: acute on chronic Heart failure type: combined systolic and diastolic HIV (human immunodeficiency virus infection) B20 HIV symptom status: symptomatic ESRD (end stage renal disease) on dialysis N18.6; Z99.2 Sleep apnea G47.30 Sleep apnea type: unspecified type Cardiac arrest I46.9
--- NOTE | 2021-10-22 08:43 | USCV_ITS ---
Vivek Harden Age: 36 Gender: M : 1985 Exam Date: 10/22/2021 11:39 Ordering Phys: Val Palmer MD Technologist: MEGAN Exam Location: [facility] [place] Indication: s/p cardiac arrest. On vent in ICU-11. No hx cardiac intervention per relative. BP: 83 / 50 HR: 1 Rhythm: Atrial fibrillation Technical Quality: Good MEASUREMENTS (Male / Female) Normal Values 2D ECHO LV Diastolic Diameter PLAX 5.9 cm 4.2 - 5.9 / 3.9 - 5.3 cm LV Systolic Diameter PLAX 5.2 cm IVS Diastolic Thickness 1.0 cm 0.6 - 1.0 / 0.6 - 0.9 cm IVS Systolic Thickness 1.2 cm LVPW Diastolic Thickness 1.2 cm 0.6 - 1.0 / 0.6 - 0.9 cm LVPW Systolic Thickness 1.7 cm LVOT Diameter 2.1 cm LV Ejection Fraction 2D Teich 23.1 % LV Ejection Fraction MOD 2C 22.0 % LV Ejection Fraction 2C AL 19.2 % LA Diameter 4.7 cm LA Width 5.0 cm LA Height 7.2 cm RA Width 4.2 cm RA Height 5.9 cm Aorta at Sinotubular Diameter 2.4 cm M-MODE Aortic Annulus Diameter 2.8 cm LA Ao Ratio MM 1.7 MV E Point Septal Separation 2.3 cm DOPPLER AV Peak Velocity 74.0 cm/s LVOT Peak Velocity 46.0 cm/s AV Area Cont Eq vti 2.1 cm squared AV Area Cont Eq pk 2.1 cm squared MV Peak Velocity 110.0 cm/s MV Area PHT 4.9 cm squared MV E' Velocity 62.0 cm/s Mitral E to MV E' Ratio 14.7 Mitral E to LV E' Lateral Ratio 12.8 Mitral E to LV E' Septal Ratio 17.4 TR Peak Velocity 262.8 cm/s TR Peak Gradient 27.6 mmHg TV Peak E Velocity 83.0 cm/s Right Atrial Pressure 15.0 mmHg Pulmonary Artery Systolic Pressu 42.6 mmHg PV Peak Velocity 62.0 cm/s RV Acceleration Time 0.1 s RV Ejection Time 0.3 s RV AcT/ET 0.4 FINDINGS Left Ventricle Severe diffuse hypokinesis of the left ventricle with ejection fraction of 22%. Mild concentric left and the hypertrophy. Mildly dilated LV cavity Right Ventricle Normal right ventricular size and systolic function. Right Atrium Mildly increased right atrial size. Left Atrium Mildly increased left atrial size. Mitral Valve Moderately severe mitral valve regurgitation. Minimally thickened mitral valve Aortic Valve No gross abnormalities noted Tricuspid Valve Possibly severe eccentric tricuspid regurgitation. Minimally thickened tricuspid valve. Estimated pulmonary artery peak systolic pressure of 43 mmHg Pulmonic Valve Mild pulmonary valve regurgitation. Pericardium Trivial pericardial effusion. Aorta CONCLUSIONS Mildly dilated left ventricle with a markedly diminished ejection fraction of 22%. Severe diffuse hypokinesia of the left ventricle. Mild biatrial enlargement. Pause Doubly severe eccentric tricuspid regurgitation Estimated pulmonary artery peak systolic pressure of 43 mmHg Moderately severe central mitral regurgitation Minimally thickened aortic and mitral valves. Trivial pericardial effusion. Compared to the study from a 05/30/2021, there is worsening of the LV systolic function-ejection fraction dropped from 30 - 35% to 22% Dr Eran Beasley MD FACC (Electronically Signed) Final Date: 23 October 2021 18:21 S
--- NOTE | 2021-10-22 09:53 | PM.CONSULT ---
Providers/Reason For Consult Consulting Physician/Specialty*: petar florez md / telenephrology Reason for Consult*: ESRD, hyperkalemia, cardiac arrest Attending Physician: Val Palmer MD Primary Care Provider: Rebecca Montiel MD History of Present Illness History of Present Illness Vivek Harden is a 36 year old male with past medical history of HIV, on HAART therapy, HFrEF, end-stage renal disease dialysis dependent Friday, history of testicular cancer status post chemotherapy. Pt was admitted with sob nd dx w/ multi-lobar pneumonia overnight had cardiac arrest. is now in icu on levo and vent. Review of Systems General: Reports: ROS unobtainable due to medical condition Medications/Allergies Home Medications Medication Instructions Recorded Confirmed Last Taken Type Prezcobix 1 tab PO DAILY 05/29/21 10/09/21 05/29/21 History Tivicay 50 mg PO DAILY 05/29/21 10/09/21 05/29/21 History citalopram 20 mg PO DAILY 05/30/21 10/09/21 Unknown History apixaban 2.5 mg tablet 2.5 mg PO BID 10/09/21 10/09/21 Unknown History dapsone 100 mg tablet 100 mg PO DAILY 10/09/21 10/09/21 Unknown History Allergies Allergy/AdvReac Type Severity Reaction Status Date / Time acetaminophen Allergy Severe ALGY-Hives Verified 10/09/21 10:21 aspirin Allergy ALGY-Rash Verified 10/21/21 20:41 Iodinated Contrast Media Allergy Unknown Verified 10/09/21 10:21 Current Medications Generic Name Dose Route Start Last Admin Trade Name Freq PRN Reason Stop Dose Admin Propofol 1,000 mg in 100 mls @ 0 mls/hr 10/22/21 01:15 10/22/21 06:04 Diprivan IV 20 mcg/kg/min .Q0M MIGUEL 7.89 mls/hr Titration Protocol Per Protocol Midazolam HCl 100 mg/ Sodium 100 mls @ 0 mls/hr 10/22/21 01:15 10/22/21 04:30 Chloride IV 6 mg/hr .Q0M MIGUEL 6 mls/hr Titration Protocol Per Protocol Norepinephrine Bitartrate 4 mg 254 mls @ 0 mls/hr 10/22/21 01:30 10/22/21 04:30 / Dextrose IV 2 mcg/min .Q0M MIGUEL 7.62 mls/hr Titration Protocol Per Protocol Fentanyl 2,500 mcg/ Sodium 250 mls @ 0 mls/hr 10/22/21 02:30 10/22/21 04:29 Chloride IV 125 mcg/hr .Q0M MIGUEL 12.5 mls/hr Titration Protocol Per Protocol Sodium Bicarbonate 50 meq/ 1,050 mls @ 50 mls/hr 10/22/21 02:45 10/22/21 03:46 Sodium Chloride IV 50 mls/hr .Q21H MIGUEL Administration PFSH Acute PFSH: Medical History Anemia in chronic kidney disease AV fistula ESRD (end stage renal disease) on dialysis History of chemotherapy History of testicular cancer HIV (human immunodeficiency virus infection) HIV carrier Hyperkalemia Shortness of breath Tachycardia Surgical History History of orchiectomy, unilateral History of removal of Port-a-Cath S/P hemodialysis catheter insertion (11/30/20) R IJ catheter exchange S/P laparotomy Lymph node biopsy Family History Denies family history of Anesthesia complication Bleeding disorder Social History Smoking and tobacco status: current every day smoker (marijuana) Alcohol intake: never Adopted: No Caregiver/support person: Yes Lives independently: Yes Housing: House Current occupational status: disabled Pets and animals: No Sexually active: Yes Current gender identity: Male Josefa/Jehovah'S Witness: Christianity Vitals/I&O/Wt Last Vital Signs Temp 98.7 F 10/21/21 21:41 Pulse 107 H 10/22/21 05:49 Resp 14 10/22/21 07:45 BP 102/76 10/22/21 04:02 Pulse Ox 94 10/22/21 07:45 10/21/21 10/22/21 10/22/21 22:59 06:59 14:59 Intake Total 1155.569 / 1155.569 Balance 1155.569 / 1155.569 Weight last 48 hrs Weight 65.771 kg Physical Exam Narrative: EXAM NARRATIVE: in icu on levo @2, vent 40%, PEEP 6, TV 400, RR 14 heent- nc/at, eomi, nicteric neck supple lungs ronchi, dull reas, crackles heart reg ext no edema LUE AVF rt ACW permacath neuro sedated Urinary Catheter Management^: Mckeon: Cath Placed During This Visit: yes Reason for Continuing Indwelling Catheter: Accurate Measurement of Urinary Output in Critically Ill Patients Urinary Catheter Date of Insertion: 10/22/21 Urinary Catheter Time of Insertion: 02:11 Data Micro: Micro: Microbiology 10/21/21 20:59 Blood Culture - Pr eliminary Blood SPECIMEN [facility] 10/21/21 20:50 Blood Culture - Pr eliminary Blood SPECIMEN [facility] A&P Additional A&P Information 36-year-old male with past medical history of HIV, on HAART therapy, HFrEF, end-stage renal disease dialysis dependent Friday, history of testicular cancer. 1. ESRD- hd today- no fluid removal -assess for repeat hd in am -phos binder 1b. met acidosis- repeat abg, chem 7, lactate 2. Right-sided dense consolidation/pneumonia along with acute respiratory failure requiring intubation and mechanical ventilation overnight. -renal dose abx 3. PEA, status post cardiac arrest on 10/22/2021 at 3 AM, received CPR for approximately 10 minutes. 4. a flutter per medicine 5 HIV : per ID 6. hgb okay 7. thrombocytopenia- likely from HIV seen and examined w/ RN- telehealth visit- time spent 50 minutes Consult Attestations Medical Necessity Statement: esrd, pna, hyperkalemia Time Spent in Patient Care: Greater than 35 minutes Coding Level of Care Code Acute Patient Safety Coordinator for Chg Idania
--- NOTE | 2021-10-22 10:07 | PC.CHAP ---
Pastoral Care Encounter/Spiritual Assessment Type of Contact [] Declined engineering associate visit [] Patient/Family/Request visit [] Outpatient visit [] Follow-up visit [] Physician referral [] Code/Alert [x] Routine visit [] Staff referral [] Actively dying [] Patient sleeping [x] Family support [] [] Out of room [] Palliative care [] [] Receiving care in room [] Pre-surgical visit [] Trauma [] Long length of stay [x] ICU visit [x] Other: vent,,, spoke to family.. prayed for recovery Relational/Emotional Strength [] Patient feels connected with others/family/visitors/staff [] Distress [] Loneliness/isolation [] Abandonment Spirituality of Patient [] Person of Josefa [] Attends Hinduism of their Josefa [] Believes in Prayer [] Reads Bible or Taoism materials [] There are Spiritual issues to be addressed Percolator Operator Interventions [x] Prayer [] Active listening [] Non-anxious presence [] Spiritual/emotional support [] Crisis/trauma care [] Spiritual counseling [] Bereavement support [] Provided bereavement packet [] Provided Bible/devotional materials [] Provided toy/stuffed animal, coloring book to patient or family member [] Provided Communion [] Anointing/[place] [] Salvation [x] Completed spiritual assessment [] Other: Impact on Illness or Injury [] Angry [] Fearful [] Anxious [] Often cries [] Exhaustion [] Unable to work [] Unable to attend samaritan [] Unable to walk/stand [] Unable to read [] Unable to drive [] Unable to eat/drink [] Unable to sleep [] Unable to be with family [] Patient intubated [] Other: Summary Time spent with patient
--- NOTE | 2021-10-22 10:24 | PC.PHAR ---
pts girlfriend states the pt was no longer taking the eliquis 2.5mg bid rx filled 09/17/21 23d/s-pts girlfriend brought in all the medication bottles that the pt was taking-
[2021-10-22 10:38] LABS: ABG PCO2 42.8 mmHg (35-45); ABG PH Result 7.42 (7.35-7.45); Arterial Blood Gas Hematocrit 32.7 % (42-52); Base Excess ABG 2.9 mmol/L (-2.0-2.0); Blood Gas Allen Test Pos; Blood Gas Operator Identificat GD; Blood Gas Sample Site Radial, right; Blood Gas Sample Type Arterial; HCO3 ABG 27.8 mmol/L (22-26); Oxygen Device VENT; PO2 ABG 68.5 mmHg (80.0-100.0)
[2021-10-22] MEDS: sodium polystyrene sulfonate 15 gm/60 mL Btl 30 GM PO (10:57)
[2021-10-22] MEDS: levoFLOXacin 500 mg Tablet OG-TUBE (10:57)
[2021-10-22] MEDS: citalopram 20 mg Tablet PO (10:57)
[2021-10-22] MEDS: piperacillin-tazobactam 3.375 GM in sodium chloride 0.9% (plus) 50 ML IV ×2 (10:57→23:05)
[2021-10-22 12:19] LABS: Lactate (Lactic Acid level) 1.8 mmol/L (0.5-2.2)
[2021-10-22 12:40] LABS: Hepatitis B Surface AB 36.4 (11.5-1000); Hepatitis B Surface Antigen Non-Reactive (Nonreactive); Hepatitis C Virus Antibody Non-Reactive (Nonreactive)
[2021-10-22] MEDS: ipratropium-albuterol 3 mL Neb INHALATION ×2 (14:24→20:10)
--- NOTE | 2021-10-22 14:52 | CTR_ITS ---
PROCEDURE INFORMATION: Exam: CT Abdomen And Pelvis Without Contrast Exam date and time: 10/22/2021 2:52 PM Age: 36 years old Clinical indication: Vomiting; Additional info: Feculent vomitus, evalute for sbo/perforation TECHNIQUE: Imaging protocol: Computed tomography of the abdomen and pelvis without contrast. Radiation optimization: All CT scans at this facility use at least one of these dose optimization techniques: automated exposure control; mA and/or kV adjustment per patient size (includes targeted exams where dose is matched to clinical indication); or iterative reconstruction. COMPARISON: CT Abdomen/Pelvis Renal [id number] 04/10/2019 9:11 AM RADIATION DOSE METRICS: Total DLP (mGy-cm): 1344.61 FINDINGS: Tubes, catheters and devices: Enteric tube tip in the stomach. Right femoral catheter. Pleural spaces: Small bilateral right greater than left pleural effusions. Heart: Cardiomegaly. Pericardial effusion measuring up to 12 mm in thickness. Liver: Normal. No mass. Gallbladder and bile ducts: Contrast in the gallbladder. Pancreas: Normal. No ductal dilation. Spleen: Normal. No splenomegaly. Adrenal glands: Normal. No mass. Kidneys and ureters: Several bilateral renal cysts, negative for follow-up advised. Stomach and bowel: Unremarkable. No obstruction. No mucosal thickening. Appendix: No evidence of appendicitis. Intraperitoneal space: Moderate ascites in the abdomen. Vasculature: Stent seen in the vena cava at the level of the liver. Lymph nodes: Unremarkable. No enlarged lymph nodes. Urinary bladder: Mckeon catheter in the urinary bladder. Reproductive: Unremarkable as visualized. Bones/joints: Unremarkable. No acute fracture. Soft tissues: Unremarkable. Other findings: Bilateral right greater left nonobstructing calyceal stones. CT/CT abdomen pelvis wo con [id number] IMPRESSION: 1. Negative for focal acute inflammatory process in the abdomen or pelvis. 2. Cardiomegaly. 3. Pericardial effusion measuring up to 12 mm in thickness. 4. Small bilateral right greater than left pleural effusions. 5. Enteric tube tip in the stomach. 6. Stent seen in the vena cava at the level of the liver. 7. Moderate ascites in the abdomen. 8. Contrast in the gallbladder. 9. Bilateral right greater left nonobstructing calyceal stones. 10. Several bilateral renal cysts, negative for follow-up advised. 11. Right femoral catheter. 12. Mckeon catheter in the urinary bladder.
--- NOTE | 2021-10-22 14:52 | CTR_ITS ---
PROCEDURE INFORMATION: Exam: CT Head Without Contrast Exam date and time: 10/22/2021 2:52 PM Age: 36 years old Clinical indication: Altered mental status/memory loss; Additional info: Post code. Pea. Evalute for CVA TECHNIQUE: Imaging protocol: Computed tomography of the head without contrast. Radiation optimization: All CT scans at this facility use at least one of these dose optimization techniques: automated exposure control; mA and/or kV adjustment per patient size (includes targeted exams where dose is matched to clinical indication); or iterative reconstruction. COMPARISON: 1. CT head wo con* [id number] 2019-03-11 15:[address] neck w con* [id number] 2018-11-26 01:03 RADIATION DOSE METRICS: Total DLP (mGy-cm): 879.67 FINDINGS: Brain: No midline shift, mass, fluid collection, or evidence of acute hemorrhage. Cerebral ventricles: No ventriculomegaly. Paranasal sinuses: Mild scattered paranasal sinus mucosal thickening and secretions. Mastoid air cells: Visualized mastoid air cells are well aerated. Bones/joints: Unremarkable. No acute fracture. Soft tissues: Unremarkable. CT/CT head wo con* [id number] IMPRESSION: No acute intracranial abnormality.
[2021-10-22 14:56] LABS: Influenza A by IFA Negative (Negative); Influenza B by IFA Negative (Negative)
[2021-10-22] MEDS: heparin, porcine 1,000 unit/mL INJ 10 mL HE (15:08)
[2021-10-22] MEDS: propofol 1,000 MG/100 ML INJ 7.89 MG IV (15:45)
[2021-10-22 17:00] LABS: Alanine Aminotransferase 124 U/L (0-41); Albumin Level 3.1 g/dL (3.5-5.2); Alkaline Phosphatase 94 IU/L (40-130); Aspartate Amino Transferase 250 U/L (0-40); Blood Urea Nitrogen 40 mg/dL (6-20); Calcium 7.9 mg/dL (8.5-10.5); Carbon Dioxide 19 mmol/L (22-29); Chloride 94 mmol/L (98-107); Globulin 3.7 g/dL (1.3-4.6); Glomerular Filtration Rate 8.5 mL/min (90-130); Glucose 109 mg/dL (65-115); Osmolality Calculated 294 mOsm/kg (285-295); Phosphorus 6.6 mg/dL (2.5-4.5); Sodium 137 mmol/L (136-145); Total Bilirubin 0.8 mg/dL (0.15-1.2); Total Protein 6.8 g/dL (6.6-8.7)
[2021-10-22 17:17] LABS: Creatine Phosphokinase 469 U/L (39-308)
--- NOTE | 2021-10-22 17:18 | P.PCN_ITS ---
Procedure/Consent Time out: Time Out Performed: Yes Consent: Consent for Procedure: Consent obtained from other (indicate) (Patients NOK ), Risks & Benefits reviewed and Agrees to proceed with procedure Procedure Narrative: Procedure: Flexible bronchoscopy with airway inspection, airway clearance of secretions and obtaining bronchoalveolar lavage sample Pre-Operative Diagnosis: Pneumonia Post-Operative Diagnosis: Same Indication: Pt with HIV - presented hypoxic respiratory [id number] imaging showing right middle lobe and left lower lobe consolidation Anesthesia: Patient is intubated, connected to mechanical ventilator, sedated fentanyl 125 MCG/hour propofol 10 mg/hour Pre-procedure Evaluation: Patient was evaluated clinically and ancillary testing reviewed. The risk of having active MTB infection is very low in my clinical judgement. ASA: 4 Malampati score: unable to evaluate due to presence of endotracheal tube Consent: Consents were obtained from [facility] and placed in the chart Procedure Details: Time out was performed by the procedure team and nursing staff. Vent support maintained on Fio2 100. The bronchoscope was introduced through the ETT. A bronchoscopic airway exam wa s performed to evaluate the visible tracheobronchial tree to the segmental level. Summary of Significant Findings: -Bronchoscope passed through ET tube, 6 ml 1% lidocaine instilled into the trachea, both right and left main bronchus. Distal trachea and main keagan visualized which were sharp and normal. Then the scope was passed through the right bronchial tree was assessed to include the right mainstem bronchus, RBI, and RUL/RML/RLL bronchi to the segmental and subsegmental levels. No endobronchial lesions or active bleeding noted. Mucosa appeared erythematous. Clear secretions noted through right upper lobe, lower lobe and middle lobe. Then the scope was left bronchial tree was assessed to include the left mainstem bronchus, KING, Lingula, and LLL bronchi to the segmental and subsegmental level. No endobronchial lesions or active bleeding noted. Mucosa appeared erythematous. Clear secretions noted through right upper lobe, lower lobe and middle lobe. 60 cc Normal saline instilled and obtained 30 cc BAL obtained from right middle lobe and sent for microbiology cultures, fungal cultures, AFB, PCP PCR, Galactomannam and cytology. The bronchoscope was then removed and the procedure terminated. Estimated Blood Loss: None Specimens: Bronchoalveolar lavage was taken from right middle lobe and sent for microbiology cultures, fungal cultures, AFB, PCP PCR, Galactomannam and cytology Complications:None; patient tolerated the procedure well. Disposition: Patient remains critically ill, intubated and stays in ICU Alex Whitley MD Pulmonary critical Care Medicine [facility] Acute Procedures Epistaxis Control: Time out performed: Yes
--- NOTE | 2021-10-22 17:18 | PM.CONSULT ---
Providers/Reason For Consult Consulting Physician/Specialty*: Alex Whitley MD/ Pulmonary Critical Care Reason for Consult*: Respiratory failure requiring intubation and imaging showing right middle lobe consolidation consulted brochoscopy and obtaining BAL Requesting Physician: Val Palmer MD Attending Physician: Val Palmer MD Primary Care Provider: Rebecca Montiel MD History of Present Illness History of Present Illness Vivek Harden is a 36 year old male with past medical history of , HIV, on HAART therapy,HFrEF, end-stage renal disease dialysis dependent Friday, history of testicular cancer status post chemotherapy , was admitted with chief complaint of worsening shortness of breath. As per admitting physician note-patient also could not planes of active hemoptysis and shortness of breath with minimal exertion and associated with substernal chest pain. He was recently discharged from hospital in [place]. Background history as per ID: Pt was diagnosed with HIV in 2011 after presenting for testicular cancer. He underwent unilateral orchiectomy at the time and chemoradiation, currently cancer free per him. He is on treatment with Dolutegravir and Darunavir/cobicistat, follows with HIV clinic in [place]. He was also on concomitant dapsone prophylaxis for PJP however uncertain as to the compliance on the same. Last known CD4 count in November 2020 was reportedly 170, on a more recent admission here in May 2021 CD4 count was only at 34. No viral load in the past year. He has missed several appointments in the [facility] ID clinic for follow-up due to being hospitalized at various different hospitals for shortness of breath, hemoptysis, pleural effusions and possible pneumonias at least since May 2021.t year. Pt was saturating 93% on room air. Admission CTA showed multilobar pneumonia involving right upper and middle lobes. Negative for PE. Dilated cardiomyopathy, mild interstitial edema right pleural effusion. Admission labs showed increased anion gap metabolic acidosis with bicarb 16 potassium 5. Around 10 PM 10/21/2021: Patient became agitated and became unresponsive-CODE BLUE jeedylime-[id number] CPR started and ACLS protocol followed-while intubated during code blood clot was observed in the airway which was removed. ROSC achieved after 10 min CPR. Patient was later transferred to ICU-mechanically ventilated and started on bicarb drip. Currently on FiO2 40%, PEEP 6, TV 400. Patient was started on broad-spectrum antibiotic vancomycin, Zosyn, azithromycin for hospital-acquired pneumonia and atypical coverage, renal consulted for hemodialysis. Pulmonary consulted for bronchoscopy and obtaining samples for BAL for further testing PCP PCR, fungal studies, bacterial and mycobacterial cultures, Patient seen at bedside -Sedated and intubated-connected to ventilator currently on 40% FiO2 saturating 96% On Levophed to MCG gtt. Other labs and imaging reviewed Review of Systems General: Reports: ROS unobtainable due to endotracheal tube, ROS unobtainable due to medical condition and ROS unobtainable due to mental status Medications/Allergies Home Medications Medication Instructions Recorded Confirmed Last Taken Type Prezcobix 1 tab PO DAILY 05/29/21 10/22/21 05/29/21 History Tivicay 50 mg PO DAILY 05/29/21 10/22/21 05/29/21 History dapsone 100 mg tablet 100 mg PO DAILY 10/09/21 10/22/21 Unknown History albuterol sulfate 2 puff INHALATION Q4H PRN 10/22/21 10/22/21 Unknown History albuterol sulfate 2.5 mg INHALATION QID PRN 10/22/21 10/22/21 Unknown History sacubitril-valsartan [Entresto] 1 tab PO BID 10/22/21 10/22/21 Unknown History sevelamer carbonate See Rx Instructions .ROUTE .COMPLEX 10/22/21 10/22/21 Unknown History torsemide 40 mg PO BID 10/22/21 10/22/21 Unknown History Allergies Allergy/AdvReac Type Severity Reaction Status Date / Time acetaminophen Allergy Severe ALGY-Hives Verified 10/09/21 10:21 aspirin Allergy ALGY-Rash Verified 10/21/21 20:41 Iodinated Contrast Media Allergy Unknown Verified 10/09/21 10:21 Current Medications Generic Name Dose Route Start Last Admin Trade Name Freq PRN Reason Stop Dose Admin Albuterol/Ipratropium 3 ml 10/22/21 09:00 10/22/21 14:24 Ipratropium-Albuterol 3 Ml Neb INHALATION 3 ml Q6H.RESPIRATORY MIGUEL Administration Citalopram Hydrobromide 20 mg 10/22/21 09:00 10/22/21 10:57 Citalopram 20 Mg Tablet PO 20 mg DAILY MIGUEL Administration Piperacillin Sod/Tazobactam 50 mls @ 100 mls/hr 10/22/21 11:00 10/22/21 10:57 Sod 3.375 gm/ Sodium Chloride IV 100 mls/hr Q12H MIGUEL Administration Protocol Propofol 1,000 mg in 100 mls @ 0 mls/hr 10/22/21 01:15 10/22/21 15:45 Diprivan IV 20 mcg/kg/min .Q0M MIGUEL 7.89 mls/hr Administration Protocol Per Protocol Midazolam HCl 100 mg/ Sodium 100 mls @ 0 mls/hr 10/22/21 01:15 10/22/21 10:00 Chloride IV 5 mg/hr .Q0M MIGUEL 5 mls/hr Titration Protocol Per Protocol Norepinephrine Bitartrate 4 mg 254 mls @ 0 mls/hr 10/22/21 01:30 10/22/21 13:20 / Dextrose IV 10 mcg/min .Q0M MIGUEL 38.1 mls/hr Titration Protocol Per Protocol Fentanyl 2,500 mcg/ Sodium 250 mls @ 0 mls/hr 10/22/21 02:30 10/22/21 04:29 Chloride IV 125 mcg/hr .Q0M MIGUEL 12.5 mls/hr Titration Protocol Per Protocol Sodium Bicarbonate 50 meq/ 1,050 mls @ 50 mls/hr 10/22/21 02:45 10/22/21 03:46 Sodium Chloride IV 50 mls/hr .Q21H MIGUEL Administration Levofloxacin 500 mg 10/22/21 08:30 10/22/21 10:57 Levofloxacin 500 Mg Tablet OG-TUBE 500 mg Q48H MIGUEL Administration Protocol PFSH Acute PFSH: Medical History Anemia in chronic kidney disease AV fistula ESRD (end stage renal disease) on dialysis History of chemotherapy History of testicular cancer HIV (human immunodeficiency virus infection) HIV carrier Hyperkalemia Shortness of breath Tachycardia Surgical History History of orchiectomy, unilateral History of removal of Port-a-Cath S/P hemodialysis catheter insertion (11/30/20) R IJ catheter exchange S/P laparotomy Lymph node biopsy Family History Denies family history of Anesthesia complication Bleeding disorder Social History Smoking and tobacco status: current every day smoker (marijuana) Alcohol intake: never Adopted: No Caregiver/support person: Yes Lives independently: Yes Housing: House Current occupational status: disabled Pets and animals: No Sexually active: Yes Current gender identity: Male Josefa/Baptism: Christianity Vitals/I&O/Wt Last Vital Signs Temp 98.7 F 10/21/21 21:41 Pulse 88 10/22/21 14:15 Resp 14 10/22/21 14:05 BP 118/86 10/22/21 13:30 Pulse Ox 99 10/22/21 14:05 10/22/21 10/22/21 10/22/21 06:59 14:59 22:59 Intake Total 1155.569 / 1155.569 200.171 / 200.171 Balance 1155.569 / 1155.569 200.171 / 200.171 Weight last 48 hrs Weight 145 lb Physical Exam Narrative: EXAM NARRATIVE: PHYSICAL EXAM: General: lying in bed, sedated and intubated. HEENT:NCAT, PERRLA, EOMI Neck: Supple Lungs: Bilateral mild crackles, Heart: s1/s2, RRR Abd: soft, NT, ND, BS + Normoactive Extremities: No edema; LUE AVF, rt ACW permacath CUSTOMER SERVICE ASSISTANT: sedated and limited CUSTOMER SERVICE ASSISTANT exam possible. SKIN: no rash LDA: # CVC: Right femoral line 10/21/21 Urinary Catheter Management^: Mckeon: Cath Placed During This Visit: yes Reason for Continuing Indwelling Catheter: Accurate Measurement of Urinary Output in Critically Ill Patients Urinary Catheter Date of Insertion: 10/22/21 Urinary Catheter Time of Insertion: 02:11 Data Labs: Other Labs: Radiology Impressions Chest CTA 10/21/21 23:24 IMPRESSION: 1. Multilobar pneumonia involving right upper and middle lobes. 2. Negative for pulmonary embolism. 3. Right pleural effusion. 4. Dilated cardiomyopathy. 5. Mild interstitial edema. Chest X-Ray 10/22/21 01:47 IMPRESSION: 1. Endotracheal tube tip 6.4 cm from the keagan. 2. Nasogastric tube tip in proximal stomach. The proximal side port is within the distal esophagus. 3. Stable placement of the dialysis catheter. 4. Worsening right-sided pneumonia. Laboratory Results WBC 4.5 10^3/uL (4.0- 10.0) 10/22/21 01:50 RBC 3.67 10^6/uL (4.1 -5.3) L 10/22/21 01:50 Hgb 10.6 g/dL (11.7-1 6.6) L 10/22/21 01:50 Hct 35.6 % (42.0-52.0 ) L 10/22/21 01:50 MCV 97.0 fl (80-94) H D 10/22/21 01:50 MCH 28.9 pg (28.0-34. 0) 10/22/21 01:50 MCHC 29.8 g/dL (30.0-3 6.0) L D 10/22/21 01:50 RDW 19.2 % (12.1-15.1 ) H 10/22/21 01:50 Plt Count 82 10^3/cmm (130- 400) L 10/22/21 01:50 MPV 12.5 fL (7.4-10.4 ) H 10/22/21 01:50 Neut % (Auto) 70.0 % 10/22/21 01:50 Lymph % (Auto) 25.4 % 10/22/21 01:50 [place] % (Auto) 3.8 % 10/22/21 01:50 Eos % (Auto) 0.0 % 10/22/21 01:50 Baso % (Auto) 0.4 % 10/22/21 01:50 Neut # (Auto) 3.17 10^3/uL (1.8 -7.7) 10/22/21 01:50 Lymph # (Auto) 1.2 10^3/uL (0.8- 4.8) 10/22/21 01:50 [place] # (Auto) 0.2 10^3/uL (0.2- 0.9) 10/22/21 01:50 Eos # (Auto) 0.0 10^3/uL (0.0- 0.8) 10/22/21 01:50 Baso # (Auto) 0.0 10^3/uL (0.0- 0.1) 10/22/21 01:50 Nucleated RBC % (a uto) 0.4 % 10/22/21 01:50 Nucleated RBCs # 0.0 /100WBC 10/22/21 01:50 D-Dimer 5.56 ug/mIFEU (0- 0.59) H 10/21/21 20:59 Specimen Type Arterial 10/22/21 10:20 Sample Site Radial, right 10/22/21 10:20 ABG pH 7.42 (7.35-7.45) 10/22/21 10:20 ABG pCO2 42.8 mmHg (35-45) 10/22/21 10:20 ABG pO2 68.5 mmHg (80.0-1 00.0) L 10/22/21 10:20 ABG HCO3 27.8 mmol/L (22-2 6) H 10/22/21 10:20 ABG O2 Saturation 98.6 10/22/21 05:00 ABG Base Excess 2.9 mmol/L (-2.0- 2.0) H 10/22/21 10:20 Wilfred Test Pos 10/22/21 10:20 A-a O2 Gradient 35.0 mmHg (5-10) H 10/22/21 05:00 Hematocrit 32.7 % (42-52) L 10/22/21 10:20 Hgb O2 Saturation 96.3 % (95-100) 10/22/21 05:00 Carboxyhemoglobin 1.2 %THgb (0.4-20 .1) 10/22/21 05:00 Methemoglobin 1.1 % (0.4-1.5) 10/22/21 05:00 Total Hemoglobin 10.7 g/dL (14-18) L 10/22/21 05:00 Sodium 135.0 mmol/L (131 -143) 10/22/21 05:00 Potassium 4.4 mmol/L (3.5-5 .0) 10/22/21 05:00 Glucose 181.0 mg/dL (70-1 15) H 10/22/21 05:00 Ionized Calcium 1.0 mmol/L (1.1-1 .4) L 10/22/21 05:00 O2 Delivery Device Vent 10/22/21 10:20 FiO2 40.0 % 10/22/21 10:20 Tidal Volume 0.40 10/22/21 10:20 PEEP 6.0 cmH20 10/22/21 10:20 Foreclosure Specialist ID Gd 10/22/21 10:20 Sodium 137 mmol/L (136-1 45) 10/22/21 11:45 Potassium 6.0 mmol/L (3.5-5 .1) H 10/22/21 11:45 Chloride 94 mmol/L (98-107 ) L 10/22/21 11:45 Carbon Dioxide 19 mmol/L (22-29) L 10/22/21 11:45 Anion Gap 30.0 (5-19) H 10/22/21 11:45 BUN 40 mg/dL (6-20) H 10/22/21 11:45 Creatinine 8.6 mg/dL (0.7-1. 2) H* 10/22/21 11:45 GFR Calculation 8.5 mL/min (90-13 0) L 10/22/21 11:45 Glucose 109 mg/dL (65-115 ) 10/22/21 11:45 POC Glucose 84 mg/dL (70-110) 10/22/21 00:52 Calculated Osmolal ity 294 mOsm/kg (285- 295) 10/22/21 11:45 Lactic Acid 1.6 mmol/L (0.5-2 .2) 10/21/21 20:50 Lactate 1.8 mmol/L (0.5-2 .2) 10/22/21 11:45 Calcium 7.9 mg/dL (8.5-10 .5) L 10/22/21 11:45 Phosphorus 6.6 mg/dL (2.5-4. 5) H 10/22/21 11:45 Total Bilirubin 0.8 mg/dL (0.15-1 .2) 10/22/21 11:45 AST 250 U/L (0-40) H 10/22/21 11:45 ALT 124 U/L (0-41) H 10/22/21 11:45 Alkaline Phosphata se 94 IU/L (40-130) 10/22/21 11:45 Creatine Kinase 469 U/L (39-308) H* 10/22/21 11:45 Troponin T Baselin e 143 ng/L (0-15) H* 10/21/21 20:50 Troponin T 120 Min [place] 149.6 ng/L (0-15) H 10/21/21 22:52 Delta Troponin T 6.6 ABS# (0-10) 10/21/21 22:52 Troponin T Hi Sens 6Hr 144.9 ng/L (0-15) H 10/22/21 02:00 Troponin T Hi Sens 6Hr Delta 1.9 ng/L (0-12) 10/22/21 02:00 C-Reactive Protein 41.9 mg/L (0.0-4. 9) H 10/21/21 22:52 Total Protein 6.8 g/dL (6.6-8.7 ) 10/22/21 11:45 Albumin 3.1 g/dL (3.5-5.2 ) L 10/22/21 11:45 Globulin 3.7 g/dL (1.3-4.6 ) 10/22/21 11:45 Procalcitonin 23.65 ng/mL (0-0. 5) H 10/21/21 22:52 Coronavirus 229E ( PCR) Not detected (NO T DETECT) 10/21/21 20:50 Hep Bs Antigen Non-reactive (No nreactive) 10/22/21 11:45 Hep Bs Antibody 36.4 (11.5-1000) 10/22/21 11:45 Hepatitis C Antibo dy Non-reactive (No nreactive) 10/22/21 11:45 Influenza Type A A g Negative (Negati ve) 10/22/21 13:30 Influenza Type B A g Negative (Negati ve) 10/22/21 13:30 SARS-CoV-2 (PCR) Not detected (NO T DETECT) 10/21/21 20:50 Micro: Micro: Microbiology 10/21/21 20:59 Blood Culture - Pr eliminary Blood [facility] 10/21/21 20:50 Blood Culture - Pr eliminary Blood SPECIMEN [facility] A&P Assessment and plan (1) Pneumonia: Status: Acute Qualifiers: Laterality: right Lung location: lower lobe of lung Pneumonia type: due to unspecified organism Qualified Code(s): J18.9 - Pneumonia, unspecified organism (2) History of testicular cancer: Status: Acute (3) Cardiac arrest: Status: Acute (4) Hemoptysis: Status: Acute (5) ESRD (end stage renal disease) on dialysis: Status: Acute (6) Sleep apnea: Status: Acute Qualifiers: Sleep apnea type: unspecified type Qualified Code(s): G47.30 - Sleep apnea, unspecified (7) Congestive heart disease: Status: Acute Qualifiers: Heart failure chronicity: acute on chronic Heart failure type: combined systolic and diastolic Qualified Code(s): I50.43 - Acute on chronic combined systolic (congestive) and diastolic (congestive) heart failure (8) HIV (human immunodeficiency virus infection): Status: Acute Qualifiers: HIV symptom status: symptomatic Qualified Code(s): B20 - Human immunodeficiency virus [HIV] disease #Acute respiratory mwomsor-mmcdlbi-npgglye to cardiac arrest -likely secondary to blood clots as noted during intubation and patient presented with hemoptysis and shortness of breath #Has underlying ESRD on hemodialysis but admission potassium was 5 and bicarb 16 does not seem to be the cause of cardiac arrest #Underlying HIV with unknown viral load and last known CD4 count 34-possibility of opportunistic infections causing dyspnea #Upon review of CT chest-small cavitary lesion noted on right lung apex and consolidation seen in the right middle lobe and posterior right upper lobe -pneumonia versus DAH #Pulmomary alveolar hemorrhage - suspect ruptured vessel vs pulmonary renal sydrome given 3+ proteinuria previously # h/o testicular cancer s/p orcheictomy 2013 and s/p chemotherapy -S/p cardiac arrest-for 10 minutes-ACLS protocol followed-currently on CMV 40%/400/PEEP 6 and saturating 96% -ABG today morning 7.4 / -Currently sedated with fentanyl, propofol -Plan is to taper down sedation and will initiate awakening trial tomorrow morning -If no response will repeat CT head to look for anoxic/hypoxic encephalopathy -Successful-we will proceed with spontaneous breathing trial and plan to extubate him 24 to 48 hours -Decreasing requirement of pressors-currently on levo 2 MCG/hour -CT chest-showed right upper lobe small cavitary lesion-suspicious for Aspergillus/fungal/TB -S/p bronchoscopy and noted erythematous mucosa predominantly on the right bronchial tree and left main bronchus with no active bleeding noted. BAL from right middle lobe sent for microbiology cultures, fungal cultures, AFB, galactomannan, PCP PCR, and cytology -Cause of hemoptysis - likely precipitated by infectious cough leading to rupture of blood vessel; given his previous proteinuria sent for MAURA, ANCA, C3, C4 and Anti GBM -Currently broadly covered with vancomycin and Zosyn and azithromycin-discontinue azithromycin and changed to Levaquin -Please send for MRSA nares, bacterial and urine antigens, Urine analysis, -Mild right pleural effusion-not enough pocket to tap and also in patient with ESRD and HFrEF - Continue hemodialysis as per renal -Obtain Echocardiogram to assess LV function - held HAART for now - NPO - GI ppx : PPI - thormobocytopenia from HIV Recommendations conveyed to hospitalist,, RN, RT taking care of the patient Consult Attestations Medical Necessity Statement: Acute hypoxic respiratory failure leading to cardiac arrest and patient with underlying HIV and hemoptysis/multilobar pneumonia on CT chest requiring intubation and mechanical ventilation Time Spent in Patient Care: Greater than 35 minutes (>than 50% of time spent in counselling and/or direct pt care on unit). Critical Care Time: The high probability of a clinically significant, sudden or life threatening deterioration of the patient's [neurological, pulmonary, infectious disease] system(s) required my full and direct attention, intervention and personal management. The critical care time is as shown. This time is in addition to time spent performing any reported procedures but includes the following: [x] Data and vital sign review and interpretation [x] Patient assessment, examination and intervention [x] Documentation [x] Medication orders and management Critical Care Time (min): 75 Coding Level of Care Code New Pt Acute Actuary for Chg Fwd Patient Type New History Comprehensive Exam Comprehensive Medical Decision Making High Complexity Diagnoses Pneumonia J18.9 Laterality: right Lung location: lower lobe of lung Pneumonia type: due to unspecified organism History of testicular cancer Z85.47 Cardiac arrest I46.9 Hemoptysis R04.2 ESRD (end stage renal disease) on dialysis N18.6; Z99.2 Sleep apnea G47.30 Sleep apnea type: unspecified type Congestive heart disease I50.43 Heart failure chronicity: acute on chronic Heart failure type: combined systolic and diastolic HIV (human immunodeficiency virus infection) B20 HIV symptom status: symptomatic Time Spent (min) 75
[2021-10-22] MEDS: pantoprazole 40 mg SDV IVP (18:10)
--- NOTE | 2021-10-22 18:58 | PC.NURSE ---
bedside bronc done by Dr. Whitley. Pt tolerated well.
[2021-10-22 21:08] LABS: Apprearance, Bronch Wash Cloudy (CLEAR); Color, Bronc Wash Red
[2021-10-22 21:54] LABS: Complement C3 70 mg/dL (90-180)
[2021-10-22 22:21] LABS: Total Cells Counted Bronch 200
[2021-10-23] VITALS (48 sets, daily range): BP systolic 79–119; BP diastolic 48–80; PULSE 79–103; RESP 14–18; TEMP 35.8; O2SAT 94–100
[2021-10-23] MEDS: sodium bicarbonate 50 MEQ in sodium chloride 0.45% 1,000 ML IV ×2 (00:39→22:00)
[2021-10-23] MEDS: ipratropium-albuterol 3 mL Neb INHALATION ×3 (02:08→21:55)
[2021-10-23] MEDS: pantoprazole 40 mg SDV IVP ×2 (02:11→14:11)
[2021-10-23] MEDS: propofol 1,000 MG/100 ML INJ 7.89 MG IV (02:15)
[2021-10-23 05:28] LABS: Calcium 7.4 mg/dL (8.5-10.5)
[2021-10-23 05:40] LABS: Basophils % 0.1 %; Hematocrit 34.4 % (42.0-52.0); Hemoglobin 10.8 g/dL (11.7-16.6); Lymphocytes # 0.6 10^3/uL (0.8-4.8); Lymphocytes % 7.1 %; Mean Corpuscular HGB Conc 31.4 g/dL (30.0-36.0); Mean Corpuscular Hemoglobin 28.6 pg (28.0-34.0); Mean Platelet Volume 12.6 fL (7.4-10.4); Monocytes # 0.4 10^3/uL (0.2-0.9); Monocytes % 4.2 %; Neutrophils % 88.3 %; Nucleated Red Blood Cells % 0 %; Platelet Count 101 10^3/cmm (130-400); Red Blood Count 3.78 10^6/uL (4.1-5.3); Red Cell Distribution Width 19.2 % (12.1-15.1)
--- NOTE | 2021-10-23 05:45 | PC.NURSE ---
No acute changes overnight. Continue care .
[2021-10-23 05:50] LABS: 25 Hydroxy Vitamin D 8 ng/mL (30-100); Anion Gap 22.1 (5-19); Blood Urea Nitrogen 31 mg/dL (6-20); Calcium 7.4 mg/dL (8.5-10.5); Carbon Dioxide 23 mmol/L (22-29); Chloride 94 mmol/L (98-107); Glomerular Filtration Rate 12.4 mL/min (90-130); Glucose 113 mg/dL (65-115); Iron 77 ug/dL (59-158); Osmolality Calculated 285 mOsm/kg (285-295); Percent Saturation 51.3 % (20-50); Potassium 5.1 mmol/L (3.5-5.1); Sodium 134 mmol/L (136-145); Total Iron Binding Capacity 150 mcg/dl; Unsaturated Iron Binding 73 ug/dL (112-347)
[2021-10-23 08:14] LABS: Ferritin 22973 ng/mL (30-400)
--- NOTE | 2021-10-23 08:41 | PM.PN ---
Subjective Subjective: Interval history: sedated, intubted, pressers Medications: Reviewed: Yes Medication Review Details: Current Medications Acetaminophen (Acetaminophen 325 Mg Tablet) 650 mg PO Q6H PRN PRN Reason: Mild/Mod Pain Or Temp >/= 101 Albuterol/Ipratropium (Ipratropium-Albuterol 3 Ml Neb) 3 ml INHALATION Q6H.RESPIRATORY MIGUEL Last Admin: 10/23/21 08:19 Dose: 3 ml Documented by: Bisacodyl (Bisacodyl 5 Mg Tablet) 10 mg PO DAILY PRN; Protocol PRN Reason: Constipation (see protocol) Citalopram Hydrobromide (Citalopram 20 Mg Tablet) 20 mg PO DAILY MIGUEL Last Admin: 10/22/21 10:57 Dose: 20 mg Documented by: Guaifenesin/Codeine Phosphate (Guaifenesin-Codeine Udc 10 Ml) 5 ml PO Q6H PRN PRN Reason: COUGH Vancomycin HCl 750 mg/ Sodium (Chloride) 250 mls @ 250 mls/hr IV Q48H MIGUEL; Protocol Piperacillin Sod/Tazobactam (Sod 3.375 gm/ Sodium Chloride) 50 mls @ 100 mls/hr IV Q12H MIGUEL; Protocol Last Infusion: 10/22/21 23:56 Dose: Infused Documented by: Propofol (Diprivan) 1,000 mg in 100 mls @ 0 mls/hr IV .Q0M MIGUEL; Protocol Last Titration: 10/23/21 05:45 Dose: 5 mcg/kg/min, 1.97 mls/hr Documented by: Midazolam HCl 100 mg/ Sodium (Chloride) 100 mls @ 0 mls/hr IV .Q0M MIGUEL; Protocol Last Titration: 10/23/21 07:52 Dose: 0 mg/hr, 0 mls/hr Documented by: Norepinephrine Bitartrate 4 mg (/ Dextrose) 254 mls @ 0 mls/hr IV .Q0M MIGUEL; Protocol Last Titration: 10/23/21 02:39 Dose: 4 mcg/min, 15.24 mls/hr Documented by: Fentanyl 2,500 mcg/ Sodium (Chloride) 250 mls @ 0 mls/hr IV .Q0M MIGUEL; Protocol Last Titration: 10/23/21 02:15 Dose: 100 mcg/hr, 10 mls/hr Documented by: Sodium Bicarbonate 50 meq/ (Sodium Chloride) 1,050 mls @ 50 mls/hr IV .Q21H MIGUEL Last Admin: 10/23/21 00:39 Dose: 50 mls/hr Documented by: Albumin Human (Albumin) 12.5 gm in 50 mls @ 60 mls/hr IV PRN PRN PRN Reason: Hypotension and/or symptomatic Levofloxacin (Levofloxacin 500 Mg Tablet) 500 mg OG-TUBE Q48H MIGUEL; Protocol Last Admin: 10/22/21 10:57 Dose: 500 mg Documented by: Ondansetron HCl (Ondansetron 2 Mg/Ml Sdv 2 Ml) 4 mg IVP Q8H PRN PRN Reason: vomiting, or N/V if npo Pantoprazole Sodium (Pantoprazole 40 Mg Sdv) 40 mg IVP Q12H [facility] Last Admin: 10/23/21 02:11 Dose: 40 mg Documented by: Vitals/I&O/Wt Last Vital Signs Temp 98.0 F 10/22/21 20:30 Pulse 86 10/23/21 08:20 Resp 14 10/23/21 08:21 BP 94/58 10/23/21 05:00 Pulse Ox 100 10/23/21 08:21 10/22/21 10/23/21 10/23/21 22:59 06:59 14:59 Intake Total 204.519 / 742.776 6069.829 / 2130.519 2.117 / 2.117 Output Total 400 / 400 Balance -195.481 / 4.690 1725.829 / 1730.519 2.117 / 2.117 Weight last 48 hrs Weight 65.771 kg Physical Exam Narrative: EXAM NARRATIVE: in icu on levo @2, vent 40%, PEEP 5, TV 400, RR 14 heent- nc/at, eomi, nicteric neck supple lungs improved. dull bases b/l heart reg ext no edema LUE AVF rt ACW permacath neuro sedated Urinary Catheter Management^: Mckeon: Cath Placed During This Visit: yes Reason for Continuing Indwelling Catheter: Accurate Measurement of Urinary Output in Critically Ill Patients Urinary Catheter Date of Insertion: 10/22/21 Urinary Catheter Time of Insertion: 02:11 Data : 10/23/21 04:13 10/23/21 04:13 Micro: Microbiology 10/21/21 20:59 Blood Culture - Preliminary Blood NEGATIVE TO DATE 10/21/21 20:50 Blood Culture - Preliminary Blood NEGATIVE TO DATE A&P Assessment and plan (1) ESRD (end stage renal disease) on dialysis: 36-year-old male with past medical history of? HIV, on HAART therapy, HFrEF,? end-stage renal disease dialysis dependent Friday, history of testicular cancer. 1. ESRD-? s/p hd yesterday- -phos binder -repeat hd in am 2. Right-sided dense consolidation/pneumonia along with acute respiratory failure requiring intubation and mechanical ventilation overnight. -renal dose abx s/p bronch -agree w/ vasculitis eval -steroids if needed per pulm -still febrile- ID is following- Dr. Moore 3. PEA, status post cardiac arrest on 10/22/2021 at 3 AM, received CPR for approximately 10 minutes. 4. a flutter per medicine 5 HIV : per ID 6. hgb okay- ferritin [id number]- no iron 7. thrombocytopenia- improving seen and examined w/ RN- telehealth visit-? time spent 30 minutes discussed w/ Dr. Nagel Status: Acute Plan see above Attestations Medical Necessity Statement*: febrile, esrd, pressor dep, HIV Time Spent in Patient Care: 16 - 35 minutes (>than 50% of time spent in counselling and/or direct pt care on unit). Coding Level of Care Code Acute Investigative Writer for Jignesh Fwnick Diagnoses ESRD (end stage renal disease) on dialysis N18.6; Z99.2
--- NOTE | 2021-10-23 09:15 | PM.PN ---
Subjective Subjective: Interval history: on levophed 6mcg this morning, sedated, vented.no acute overnight events. Ct abdomen withotu acute pathology. CT head without stroke. Medications: Reviewed: Yes Vitals/I&O/Wt Last Vital Signs Temp 96.5 F L 10/23/21 12:30 Pulse 103 H 10/23/21 12:30 Resp 14 10/23/21 12:40 BP 119/80 10/23/21 12:30 Pulse Ox 96 10/23/21 12:40 10/23/21 10/23/21 10/23/21 06:59 14:59 22:59 Intake Total 1725.829 / 2130.519 2.117 / 2.117 188.468 / 190.585 Output Total 175 / 175 Balance 1725.829 / 1730.519 -172.883 / -172.883 188.468 / 15.585 Weight last 48 hrs Weight 65.771 kg Physical Exam Narrative: EXAM NARRATIVE: GEN: intubated, sedated CVS: S1S2 N RS: reduced air entry diffusely right side. Abd: Soft, nt/nd , bs+ DICTAPHONE TRANSCRIBER: unable to assess Urinary Catheter Management: Mckeon: Cath Placed During This Visit: yes Reason for Continuing Indwelling Catheter: Accurate Measurement of Urinary Output in Critically Ill Patients Urinary Catheter Date of Insertion: 10/22/21 Urinary Catheter Time of Insertion: 02:11 Data : 10/23/21 04:13 10/23/21 04:13 Micro: Microbiology 10/22/21 13:30 MRSA Culture - Final Nose 10/21/21 20:59 Blood Culture - Preliminary Blood NEGATIVE TO DATE 10/21/21 20:50 Blood Culture - Preliminary Blood NEGATIVE TO DATE A&P Assessment and plan (1) Sepsis: Status: Acute Qualifiers: Sepsis type: sepsis due to unspecified organism Sepsis acute organ dysfunction status: with acute organ dysfunction Severe sepsis acute organ dysfunction type: acute respiratory failure Acute respiratory failure type: with hypoxia Severe sepsis shock status: with septic shock Qualified Code(s): A41.9 - Sepsis, unspecified organism; R65.21 - Severe sepsis with septic shock; J96.01 - Acute respiratory failure with hypoxia (2) Pneumonia: Status: Acute Qualifiers: Pneumonia type: due to unspecified organism Laterality: right Lung location: lower lobe of lung Qualified Code(s): J18.9 - Pneumonia, unspecified organism (3) Hemoptysis: Status: Acute (4) Congestive heart disease: Status: Acute Qualifiers: Heart failure type: combined systolic and diastolic Heart failure chronicity: acute on chronic Qualified Code(s): I50.43 - Acute on chronic combined systolic (congestive) and diastolic (congestive) heart failure (5) HIV (human immunodeficiency virus infection): Status: Acute Qualifiers: HIV symptom status: symptomatic Qualified Code(s): B20 - Human immunodeficiency virus [HIV] disease (6) ESRD (end stage renal disease) on dialysis: Status: Acute (7) Sleep apnea: Status: Acute Qualifiers: Sleep apnea type: unspecified type Qualified Code(s): G47.30 - Sleep apnea, unspecified (8) Cardiac arrest: Status: Acute Plan Vivek Harden is a 36-year-old male with past medical history of , HIV, on HAART therapy from [place],HFrEF,? end-stage renal disease dialysis dependent Friday, history of testicular cancer HENRY currently , was admitted with chief complaint of worsening shortness of breath, hemoptysis going on over past several months, variously attributed to CHF, recurrent pneumonias, pleural effusions, multiple hospital admissions here and at OSH in [place]. Currently CTA of his chest is without any evidence of PE, it does show a dense consolidation in the right middle and upper lobes. Unknown LAST VL and CD4 count. #Right-sided dense consolidation/pneumonia along with acute respiratory failure requiring intubation and mechanical ventilation overnight. #PEA, status post cardiac arrest on 10/22/2021 at 3 AM, received CPR for approximately 10 minutes. -Currently on empiric antibiotic coverage with piperacillin tazobactam, vancomycin and levofloxacin pending sputum Gram stain and culture, MRSA PCR from nares, urine bacterial and Legionella antigens - will exclude opportunistic infections including mycobacterial and fungal infections. - appreciate brionchoscopy and pulm recommendations - pending AFB smear and MTB PCR x3, PJP PCR, fungal cx and cytology - pending viral load and CD4 count -Troponin elevated range 140s, past check ~119 from May, delta <10, pending echo . Also noted pericardial effusion on CT abdomen. - sinus tachycardia on EKG # HIV : Hold HAART for now while inpatient. Will decide further treatment base on VL and Cd4 count. If signs of virological failure, will need to be transitioned from 2 drug to 3 drug regimen. Genotype testing not available at this time. Left VM for his caser shoe parts from HIV clinic at? [phone] # CKD on HD: Appreciate renal recommendations. vasculitis w/up ordered. Plan for today: sedation vacation today to assess for mentation off sedation. If does well will plan for extubation tomorrow. Attestations Medical Necessity Statement*: ongoing admission for cirtical care as above Critical Care Time: The high probability of a clinically significant, sudden or life threatening deterioration of the patient's [respiratory,cardiac,ID, renal] system(s) required my full and direct attention, intervention and personal management. The critical care time is as shown. This time is in addition to time spent performing any reported procedures but includes the following: [x] Data and vital sign review and interpretation [x] Patient assessment, examination and intervention [x] Documentation [x] Medication orders and management Coding Level of Care Code Acute Molder Punch for [facility] Diagnoses Sepsis A41.9; R65.21; J96.01 Sepsis type: sepsis due to unspecified organism Sepsis acute organ dysfunction status: with acute organ dysfunction Severe sepsis acute organ dysfunction type: acute respiratory failure Acute respiratory failure type: with hypoxia Severe sepsis shock status: with septic shock Pneumonia J18.9 Pneumonia type: due to unspecified organism Laterality: right Lung location: lower lobe of lung Hemoptysis R04.2 Congestive heart disease I50.43 Heart failure type: combined systolic and diastolic Heart failure chronicity: acute on chronic HIV (human immunodeficiency virus infection) B20 HIV symptom status: symptomatic ESRD (end stage renal disease) on dialysis N18.6; Z99.2 Sleep apnea G47.30 Sleep apnea type: unspecified type Cardiac arrest I46.9
[2021-10-23] MEDS: citalopram 20 mg Tablet PO (11:10)
[2021-10-23] MEDS: piperacillin-tazobactam 3.375 GM in sodium chloride 0.9% (plus) 50 ML IV ×2 (11:10→22:05)
[2021-10-23] MEDS: vancomycin 1,000 MG in sodium chloride 0.9% 250 ML 250 MG IV (11:12)
--- NOTE | 2021-10-23 12:09 | P.PN_ITS ---
Vitals/I&O/Wt Last Vital Signs Temp 98.0 F 10/22/21 20:30 Pulse 92 10/23/21 10:30 Resp 14 10/23/21 09:53 BP 98/54 10/23/21 10:30 Pulse Ox 95 10/23/21 10:30 10/22/21 10/23/21 10/23/21 22:59 06:59 14:59 Intake Total 204.519 / 200.903 4595.829 / 2130.519 2.117 / 2.117 Output Total 400 / 400 175 / 175 Balance -195.481 / 4.690 1725.829 / 1730.519 -172.883 / -172.883 Weight last 48 hrs Weight 65.771 kg Physical Exam Urinary Catheter Management: Mckeon: Cath Placed During This Visit: yes Reason for Continuing Indwelling Catheter: Accurate Measurement of Urinary Output in Critically Ill Patients Urinary Catheter Date of Insertion: 10/22/21 Urinary Catheter Time of Insertion: 02:11 Data : 10/23/21 04:13 10/23/21 04:13 Micro: Microbiology 10/21/21 20:59 Blood Culture - Preliminary Blood NEGATIVE TO DATE 10/21/21 20:50 Blood Culture - Preliminary Blood NEGATIVE TO DATE Coding Level of Care Code Acute Lead Recoverer for Jignesh Emerson
--- NOTE | 2021-10-23 14:22 | PM.PN ---
Subjective Subjective: Interval history: -Patient seen at bedside today -No acute events overnight -Sedated with Versed, fentanyl, propofol -FiO2 down to 30% for mechanical ventilator patient saturating at 92% -still requiring Levophed 4 MCG/hour Medications: Reviewed: Yes Vitals/I&O/Wt Last Vital Signs Temp 96.5 F L 10/23/21 12:30 Pulse 103 H 10/23/21 12:30 Resp 14 10/23/21 12:40 BP 119/80 10/23/21 12:30 Pulse Ox 96 10/23/21 12:40 10/22/21 10/23/21 10/23/21 22:59 06:59 14:59 Intake Total 204.519 / 374.579 9440.829 / 2130.519 2.117 / 2.117 Output Total 400 / 400 175 / 175 Balance -195.481 / 4.690 1725.829 / 1730.519 -172.883 / -172.883 Weight last 48 hrs Weight 145 lb Physical Exam Narrative: EXAM NARRATIVE: General: lying in bed, sedated and intubated. HEENT:NCAT, PERRLA, EOMI Neck: Supple Lungs: Bilateral mild crackles,? Heart: s1/s2, RRR Abd: soft, NT, ND, BS + Normoactive Extremities: No edema; LUE AVF, rt ACW permacath AGRICULTURE TECHNICIAN: sedated and limited AGRICULTURE TECHNICIAN exam possible. SKIN: no rash LDA: # CVC: Right femoral line 10/21/21 Urinary Catheter Management: Mckeon: Cath Placed During This Visit: yes Reason for Continuing Indwelling Catheter: Accurate Measurement of Urinary Output in Critically Ill Patients Urinary Catheter Date of Insertion: 10/22/21 Urinary Catheter Time of Insertion: 02:11 Data : 10/23/21 04:13 10/23/21 04:13 Other Labs: Radiology Impressions Chest CTA 10/21/21 23:24 IMPRESSION: 1. Multilobar pneumonia involving right upper and middle lobes. 2. Negative for pulmonary embolism. 3. Right pleural effusion. 4. Dilated cardiomyopathy. 5. Mild interstitial edema. Chest X-Ray 10/22/21 01:47 IMPRESSION: 1. Endotracheal tube tip 6.4 cm from the keagan. 2. Nasogastric tube tip in proximal stomach. The proximal side port is within the distal esophagus. 3. Stable placement of the dialysis catheter. 4. Worsening right-sided pneumonia. Abdomen/Pelvis CT 10/22/21 14:52 IMPRESSION: 1. Negative for focal acute inflammatory process in the abdomen or pelvis. 2. Cardiomegaly. 3. Pericardial effusion measuring up to 12 mm in thickness. 4. Small bilateral right greater than left pleural effusions. 5. Enteric tube tip in the stomach. 6. Stent seen in the vena cava at the level of the liver. 7. Moderate ascites in the abdomen. 8. Contrast in the gallbladder. 9. Bilateral right greater left nonobstructing calyceal stones. 10. Several bilateral renal cysts, negative for follow-up advised. 11. Right femoral catheter. 12. Mckeon catheter in the urinary bladder. Head CT 10/22/21 14:52 IMPRESSION: No acute intracranial abnormality. Laboratory Results WBC 9.0 10^3/uL (4.0-10.0) 10/23/21 04:13 RBC 3.78 10^6/uL (4.1-5.3) L 10/23/21 04:13 Hgb 10.8 g/dL (11.7-16.6) L 10/23/21 04:13 Hct 34.4 % (42.0-52.0) L 10/23/21 04:13 MCV 91.0 fl (80-94) D 10/23/21 04:13 MCH 28.6 pg (28.0-34.0) 10/23/21 04:13 MCHC 31.4 g/dL (30.0-36.0) D 10/23/21 04:13 RDW 19.2 % (12.1-15.1) H 10/23/21 04:13 Plt Count 101 10^3/cmm (130-400) L 10/23/21 04:13 MPV 12.6 fL (7.4-10.4) H 10/23/21 04:13 Neut % (Auto) 88.3 % 10/23/21 04:13 Lymph % (Auto) 7.1 % 10/23/21 04:13 Rabun % (Auto) 4.2 % 10/23/21 04:13 Eos % (Auto) 0.0 % 10/23/21 04:13 Baso % (Auto) 0.1 % 10/23/21 04:13 Neut # (Auto) 7.90 10^3/uL (1.8-7.7) H 10/23/21 04:13 Lymph # (Auto) 0.6 10^3/uL (0.8-4.8) L 10/23/21 04:13 Rabun # (Auto) 0.4 10^3/uL (0.2-0.9) 10/23/21 04:13 Eos # (Auto) 0.0 10^3/uL (0.0-0.8) 10/23/21 04:13 Baso # (Auto) 0.0 10^3/uL (0.0-0.1) 10/23/21 04:13 Nucleated RBC % (auto) 0 % 10/23/21 04:13 Nucleated RBCs # 0.0 /100WBC 10/23/21 04:13 D-Dimer 5.56 ug/mIFEU (0-0.59) H 10/21/21 20:59 Specimen Type Arterial 10/22/21 10:20 Sample Site Radial, right 10/22/21 10:20 ABG pH 7.42 (7.35-7.45) 10/22/21 10:20 ABG pCO2 42.8 mmHg (35-45) 10/22/21 10:20 ABG pO2 68.5 mmHg (80.0-100.0) L 10/22/21 10:20 ABG HCO3 27.8 mmol/L (22-26) H 10/22/21 10:20 ABG O2 Saturation 98.6 10/22/21 05:00 ABG Base Excess 2.9 mmol/L (-2.0-2.0) H 10/22/21 10:20 Wilfred Test Pos 10/22/21 10:20 A-a O2 Gradient 35.0 mmHg (5-10) H 10/22/21 05:00 Hematocrit 32.7 % (42-52) L 10/22/21 10:20 Hgb O2 Saturation 96.3 % (95-100) 10/22/21 05:00 Carboxyhemoglobin 1.2 %THgb (0.4-20.1) 10/22/21 05:00 Methemoglobin 1.1 % (0.4-1.5) 10/22/21 05:00 Total Hemoglobin 10.7 g/dL (14-18) L 10/22/21 05:00 Sodium 135.0 mmol/L (131-143) 10/22/21 05:00 Potassium 4.4 mmol/L (3.5-5.0) 10/22/21 05:00 Glucose 181.0 mg/dL (70-115) H 10/22/21 05:00 Ionized Calcium 1.0 mmol/L (1.1-1.4) L 10/22/21 05:00 O2 Delivery Device Vent 10/22/21 10:20 FiO2 40.0 % 10/22/21 10:20 Tidal Volume 0.40 10/22/21 10:20 PEEP 6.0 cmH20 10/22/21 10:[address] Light ID Gd 10/22/21 10:20 Sodium 134 mmol/L (136-145) L 10/23/21 04:13 Potassium 5.1 mmol/L (3.5-5.1) 10/23/21 04:13 Chloride 94 mmol/L (98-107) L 10/23/21 04:13 Carbon Dioxide 23 mmol/L (22-29) 10/23/21 04:13 Anion Gap 22.1 (5-19) H 10/23/21 04:13 BUN 31 mg/dL (6-20) H 10/23/21 04:13 Creatinine 6.2 mg/dL (0.7-1.2) H* 10/23/21 04:13 GFR Calculation 12.4 mL/min (90-130) L 10/23/21 04:13 Glucose 113 mg/dL (65-115) 10/23/21 04:13 POC Glucose 84 mg/dL (70-110) 10/22/21 00:52 Calculated Osmolality 285 mOsm/kg (285-295) 10/23/21 04:13 Lactic Acid 1.6 mmol/L (0.5-2.2) 10/21/21 20:50 Lactate 1.8 mmol/L (0.5-2.2) 10/22/21 11:45 Calcium 7.4 mg/dL (8.5-10.5) L 10/23/21 04:13 Phosphorus 6.6 mg/dL (2.5-4.5) H 10/22/21 11:45 Iron 77 ug/dL (59-158) 10/23/21 04:13 TIBC 150 mcg/dl 10/23/21 04:13 % Saturation 51.3 % (20-50) H 10/23/21 04:13 Unsat Iron Binding 73 ug/dL (112-347) L 10/23/21 04:13 Ferritin 43805 ng/mL (30-400) H 10/23/21 04:13 Total Bilirubin 0.8 mg/dL (0.15-1.2) 10/22/21 11:45 AST 250 U/L (0-40) H 10/22/21 11:45 ALT 124 U/L (0-41) H 10/22/21 11:45 Alkaline Phosphatase 94 IU/L (40-130) 10/22/21 11:45 Creatine Kinase 469 U/L (39-308) H* 10/22/21 11:45 Troponin T Baseline 143 ng/L (0-15) H* 10/21/21 20:50 Troponin T 120 Minute 149.6 ng/L (0-15) H 10/21/21 22:52 Delta Troponin T 6.6 ABS# (0-10) 10/21/21 22:52 Troponin T Hi Sens 6Hr 144.9 ng/L (0-15) H 10/22/21 02:00 Troponin T Hi Sens 6Hr Delta 1.9 ng/L (0-12) 10/22/21 02:00 C-Reactive Protein 41.9 mg/L (0.0-4.9) H 10/21/21 22:52 Total Protein 6.8 g/dL (6.6-8.7) 10/22/21 11:45 Albumin 3.1 g/dL (3.5-5.2) L 10/22/21 11:45 Globulin 3.7 g/dL (1.3-4.6) 10/22/21 11:45 25-OH Vitamin D Total 8 ng/mL (30-100) L 10/23/21 04:13 Procalcitonin 23.65 ng/mL (0-0.5) H 10/21/21 22:52 PTH Intact 519.0 pg/mL (15-65) H 10/23/21 04:13 Calcium (PTH Intact) 7.4 mg/dL (8.5-10.5) L 10/23/21 04:13 Sputum/Fluid Cytology Cancelled 10/22/21 17:15 Bronch Specimen Source Right lobe 10/22/21 17:15 Bronchial Fluid Color Red 10/22/21 17:15 Bronchial Fluid Appearance Cloudy (CLEAR) 10/22/21 17:15 Bronchial Fluid WBC 5201 /uL 10/22/21 17:15 Bronchial Fluid RBC 20 10^3/uL 10/22/21 17:15 Bronch Cells Counted 200 10/22/21 17:15 Bronchial Neutrophils 62.00 % (0.9-2.3) H 10/22/21 17:15 Bronchial Lymphocytes 12.50 % (10.71-12.91) 10/22/21 17:15 Bronchial Eosinophils 12.00 % (0.13-0.25) H 10/22/21 17:15 Bronchial Macrophages 13.50 % (83.6-86.8) L 10/22/21 17:15 Complement C3 70 mg/dL (90-180) L 10/22/21 11:45 Complement C4 19 mg/dL (10-40) 10/22/21 11:45 Coronavirus 229E (PCR) Not detected (NOT DETECT) 10/21/21 20:50 Hep Bs Antigen Non-reactive (Nonreactive) 10/22/21 11:45 Hep Bs Antibody 36.4 (11.5-1000) 10/22/21 11:45 Hepatitis C Antibody Non-reactive (Nonreactive) 10/22/21 11:45 Influenza Type A Ag Negative (Negative) 10/22/21 13:30 Influenza Type B Ag Negative (Negative) 10/22/21 13:30 SARS-CoV-2 (PCR) Not detected (NOT DETECT) 10/21/21 20:50 Micro: Microbiology 10/21/21 20:59 Blood Culture - Preliminary Blood NEGATIVE TO DATE 10/21/21 20:50 Blood Culture - Preliminary Blood NEGATIVE TO DATE A&P Assessment and plan (1) Pneumonia: Status: Acute Qualifiers: Laterality: right Lung location: lower lobe of lung Pneumonia type: due to unspecified organism Qualified Code(s): J18.9 - Pneumonia, unspecified organism (2) History of testicular cancer: Status: Acute (3) Cardiac arrest: Status: Acute (4) Hemoptysis: Status: Acute (5) ESRD (end stage renal disease) on dialysis: Status: Acute (6) Sleep apnea: Status: Acute Qualifiers: Sleep apnea type: unspecified type Qualified Code(s): G47.30 - Sleep apnea, unspecified (7) Congestive heart disease: Status: Acute Qualifiers: Heart failure chronicity: acute on chronic Heart failure type: combined systolic and diastolic Qualified Code(s): I50.43 - Acute on chronic combined systolic (congestive) and diastolic (congestive) heart failure (8) HIV (human immunodeficiency virus infection): Status: Acute Qualifiers: HIV symptom status: symptomatic Qualified Code(s): B20 - Human immunodeficiency virus [HIV] disease Plan #Acute respiratory [id number]-[id number] to cardiac arrest -likely secondary to blood clots as noted during intubation and patient presented with hemoptysis and shortness of breath #Underlying HIV with unknown viral load and last known CD4 count 34-possibility of opportunistic infections causing dyspnea #Upon review of CT chest-small cavitary lesion noted on right lung apex and consolidation seen in the right middle lobe and posterior right upper lobe -pneumonia versus DAH #Pulmomary alveolar hemorrhage - suspect ruptured vessel vs pulmonary renal sydrome given 3+ proteinuria previously # h/o testicular cancer s/p orcheictomy 2013 and s/p chemotherapy #Chemotherapy-induced on hemodialysis -S/p cardiac arrest-for 10 minutes-ACLS protocol followed -ABG 7.4 // --currently on CMV 30%/400/PEEP 6 and saturating 96% -Currently sedated with b look good fentanyl, propofol -Plan is to taper down sedation and will initiate awakening trial tomorrow morning -If no response will repeat CT head to look for anoxic/hypoxic encephalopathy -If successful-we will proceed with spontaneous breathing trial and plan to extubate him 24 to 48 hours -Currently still requiring Levophed two MCG/hour -CT chest-showed right upper lobe small cavitary lesion-suspicious for Aspergillus/fungal/TB; AFB smears pending -S/p bronchoscopy and noted erythematous mucosa predominantly on the right bronchial tree and left main bronchus with no active bleeding noted. BAL from right middle lobe sent for microbiology cultures, fungal cultures, AFB, galactomannan, PCP PCR, and ikfngsrt-qzfcph-ef: Cultures -Cause of hemoptysis - likely precipitated by infectious cough leading to rupture of blood vessel; given his previous [id number]-wu MAURA, ANCA, C3, C4 and Anti GBM -Currently broadly covered with vancomycin and Zosyn and Levaquin -Please send for MRSA nares, bacterial and urine antigens, Urine analysis, -Mild right pleural effusion-not enough pocket to tap and also in patient with ESRD and HFrEF - Continue hemodialysis as per renal -As per patient significant other-he was recently admitted outside hospital where his ejection fraction was 25%; had echo here-pending report - held HAART for now -Started tube feeding nephro 30 cc/on - GI ppx : PPI - thormobocytopenia from HIV Recommendations conveyed to hospitalist,, RN, RT taking care of the patient Attestations Medical Necessity Statement*: Acute hypoxic respiratory failure leading to cardiac arrest and patient with underlying HIV and hemoptysis/multilobar pneumonia on CT chest requiring intubation and mechanical ventilation Critical Care Time: The high probability of a clinically significant, sudden or life threatening deterioration of the patient's?[neurological, pulmonary, infectious disease]?system(s) required my full and direct attention, intervention and personal management. The critical care time is as shown. This time is in addition to time spent performing any reported procedures but includes the following: [x]?Data and vital sign review and interpretation [x]?Patient assessment, examination and intervention [x]?Documentation [x]?Medication orders and management Critical Care Time (min): 45 Coding Level of Care Code Established Pt Acute Furniture Finisher for Chg Fwd Patient Type Established History Comprehensive Exam Comprehensive Medical Decision Making High Complexity Diagnoses Pneumonia J18.9 Laterality: right Lung location: lower lobe of lung Pneumonia type: due to unspecified organism History of testicular cancer Z85.47 Cardiac arrest I46.9 Hemoptysis R04.2 ESRD (end stage renal disease) on dialysis N18.6; Z99.2 Sleep apnea G47.30 Sleep apnea type: unspecified type Congestive heart disease I50.43 Heart failure chronicity: acute on chronic Heart failure type: combined systolic and diastolic HIV (human immunodeficiency virus infection) B20 HIV symptom status: symptomatic Time Spent (min) 45
[2021-10-23] MEDS: dexmedeTOMIDine 0.9 % NaCL 400 MCG/100 ML PREMIX IV (17:51)
[2021-10-23] MEDS: bisacodyl 5 mg Tablet 10 MG PO (20:38)
--- NOTE | 2021-10-23 21:22 | PC.NURSE ---
Shift summary: Sedation vacation done today. Patient was left on 50mcg of fentanyl throughout the day. Patient was able to follow commands, and was able to communicate his needs and comfort through hand squeezes and gestures. 25 mL of urine output.
[2021-10-23] MEDS: vancomycin 750 MG in sodium chloride 0.9% 250 ML 250 MG IV (22:05)
[2021-10-24] VITALS (58 sets, daily range): BP systolic 80–129; BP diastolic 50–104; PULSE 95–119; RESP 7–40; TEMP 35.9–36.6; O2SAT 74–100
[2021-10-24] MEDS: dexmedeTOMIDine 0.9 % NaCL 400 MCG/100 ML PREMIX IV (00:29)
[2021-10-24] MEDS: pantoprazole 40 mg SDV IVP ×2 (02:25→15:31)
[2021-10-24] MEDS: ipratropium-albuterol 3 mL Neb INHALATION ×4 (02:51→20:23)
--- NOTE | 2021-10-24 03:41 | PC.NURSE ---
Patient self extubated, with restraints on, placed on 2L NC, following commands, restraints removed. AO to self does not remmber coming to hospital
--- NOTE | 2021-10-24 03:46 | PC.RESP ---
Called to pt room by family member, pt had tube out of mouth. Patient had restraints in place. Ventilator placed on stand-by and nasal cannula placed on pt at 3lpm.
[2021-10-24 03:49] LABS: Basophils % 0.2 %; Eosinophils % 0.2 %; Hematocrit 37.1 % (42.0-52.0); Hemoglobin 11.5 g/dL (11.7-16.6); Lymphocytes # 0.9 10^3/uL (0.8-4.8); Lymphocytes % 14.4 %; Mean Corpuscular Hemoglobin 28.5 pg (28.0-34.0); Mean Corpuscular Volume 91.8 fl (80-94); Mean Platelet Volume 12.1 fL (7.4-10.4); Monocytes # 0.4 10^3/uL (0.2-0.9); Monocytes % 5.5 %; Neutrophils % 79.2 %; Nucleated Red Blood Cells # 0.1 /100WBC; Nucleated Red Blood Cells % 0.8 %; Platelet Count 101 10^3/cmm (130-400); Red Blood Count 4.04 10^6/uL (4.1-5.3); Red Cell Distribution Width 18.9 % (12.1-15.1); White Blood Count 6.3 10^3/uL (4.0-10.0)
--- NOTE | 2021-10-24 03:59 | PC.NURSE ---
Dr. Yu notified of self extubation, no N.O.
[2021-10-24 04:10] LABS: Anion Gap 21.3 (5-19); Blood Urea Nitrogen 45 mg/dL (6-20); Calcium 6.5 mg/dL (8.5-10.5); Carbon Dioxide 26 mmol/L (22-29); Chloride 92 mmol/L (98-107); Glomerular Filtration Rate 9.6 mL/min (90-130); Glucose 89 mg/dL (65-115); Osmolality Calculated 289 mOsm/kg (285-295); Potassium 5.3 mmol/L (3.5-5.1); Sodium 134 mmol/L (136-145)
[2021-10-24 04:22] LABS: Vancomycin Trough 31.1 ug/mL (10-15)
--- NOTE | 2021-10-24 06:32 | PC.NURSE ---
recquired O2 being turned to 4L NC, still following commands, not SOB
--- NOTE | 2021-10-24 09:00 | P.PN_ITS ---
Subjective Subjective: Interval history: extubated, talking, less confused Medications: Reviewed: Yes Medication Review Details: Current Medications Acetaminophen (Acetaminophen 325 Mg Tablet) 650 mg PO Q6H PRN PRN Reason: Mild/Mod Pain Or Temp >/= 101 Albuterol/Ipratropium (Ipratropium-Albuterol 3 Ml Neb) 3 ml INHALATION Q6H.RESPIRATORY MIGUEL Last Admin: 10/24/21 02:51 Dose: 3 ml Documented by: Bisacodyl (Bisacodyl 5 Mg Tablet) 10 mg PO DAILY MIGUEL; Protocol Last Admin: 10/23/21 20:38 Dose: 10 mg Documented by: Citalopram Hydrobromide (Citalopram 20 Mg Tablet) 20 mg PO DAILY MIGUEL Last Admin: 10/23/21 11:10 Dose: 20 mg Documented by: Guaifenesin/Codeine Phosphate (Guaifenesin-Codeine Udc 10 Ml) 5 ml PO Q6H PRN PRN Reason: COUGH Piperacillin Sod/Tazobactam (Sod 3.375 gm/ Sodium Chloride) 50 mls @ 100 mls/hr IV Q12H MIGUEL; Protocol Last Infusion: 10/24/21 02:03 Dose: Infused Documented by: Norepinephrine Bitartrate 4 mg (/ Dextrose) 254 mls @ 0 mls/hr IV .Q0M MIGUEL; Protocol Last Titration: 10/24/21 03:45 Dose: 2 mcg/min, 7.62 mls/hr Documented by: Fentanyl 2,500 mcg/ Sodium (Chloride) 250 mls @ 0 mls/hr IV .Q0M MIGUEL; Protocol Last Titration: 10/24/21 03:45 Dose: 0 mcg/hr, 0 mls/hr Documented by: Sodium Bicarbonate 50 meq/ (Sodium Chloride) 1,050 mls @ 50 mls/hr IV .Q21H MIGUEL Last Admin: 10/23/21 22:00 Dose: 50 mls/hr Documented by: Albumin Human (Albumin) 12.5 gm in 50 mls @ 60 mls/hr IV PRN PRN PRN Reason: Hypotension and/or symptomatic Vancomycin HCl 1,000 mg/ (Sodium Chloride) 250 mls @ 250 mls/hr IV MoWeFr [facility]; Protocol Last Infusion: 10/24/21 02:04 Dose: Infused Documented by: dexmedeTOMIDine 0.9 % NaCL (Precedex) 400 mcg in 100 mls @ 0 mls/hr IV .Q0M MIGUEL; Protocol Last Admin: 10/24/21 00:29 Dose: 0.1 mcg/kg/hr, 1.64 mls/hr Documented by: Levofloxacin (Levofloxacin 500 Mg Tablet) 500 mg OG-TUBE Q48H MIGUEL; Protocol Last Admin: 10/22/21 10:57 Dose: 500 mg Documented by: Ondansetron HCl (Ondansetron 2 Mg/Ml Sdv 2 Ml) 4 mg IVP Q8H PRN PRN Reason: vomiting, or N/V if npo Pantoprazole Sodium (Pantoprazole 40 Mg Sdv) 40 mg IVP Q12H MIGUEL Last Admin: 10/24/21 02:25 Dose: 40 mg Documented by: Vitals/I&O/Wt Last Vital Signs Temp 96.5 F L 10/23/21 12:30 Pulse 101 H 10/24/21 05:46 Resp 14 10/24/21 03:04 BP 87/65 10/24/21 04:00 Pulse Ox 92 10/24/21 04:00 10/23/21 10/24/21 10/24/21 22:59 06:59 14:59 Intake Total 1238.468 / 1365.585 593.685 / 1959.270 Output Total 2525 / 2700 50 / 2750 Balance -1286.532 / -1334.415 543.685 / -790.730 extubated, bp low heent- nc/at, eomi, anicteric neck - no jvp, rt PC lung crackles b/l heart - reg, + oskar abd soft, nt, nd, +BS ext - no edema neuro- a,a, o x 2 pulses = b/l Physical Exam Urinary Catheter Management: Mckeon: Cath Placed During This Visit: yes Reason for Continuing Indwelling Catheter: Accurate Measurement of Urinary Output in Critically Ill Patients Urinary Catheter Date of Insertion: 10/22/21 Urinary Catheter Time of Insertion: 02:11 Data : 10/24/21 03:10 10/24/21 03:10 Micro: Microbiology 10/22/21 17:15 Gram Stain - Final Lung Right Middle Lobe 10/22/21 13:30 MRSA Culture - Final Nose A&P Assessment and plan (1) ESRD (end stage renal disease) on dialysis: 36-year-old male with past medical history of? HIV, on HAART therapy, HFrEF,? end-stage renal disease dialysis dependent Friday, history of testicular cancer. 1. ESRD-? -phos binder -repeat hd now- 3- 3.5 hrs, 2k, remove fluids as possible 2. Right-sided dense consolidation/pneumonia along with acute respiratory failure requiring intubation and mechanical ventilation overnight. -renal dose abx s/p bronch -agree w/ vasculitis eval -steroids if needed per pulm -still febrile- ID is following- Dr. Moore -hold vanco till level under 30 3. PEA, status post cardiac arrest on 10/22/2021 at 3 AM, received CPR for approximately 10 minutes. 4. a flutter per medicine 5 HIV : per ID 6. hgb okay- ferritin [id number]- no iron 7. thrombocytopenia- improving 8. replete vit d seen and examined w/ RN- telehealth visit-? time spent 30 minutes discussed w/ Dataar Status: Acute Plan see above Attestations Medical Necessity Statement*: esrd, pna, s/p PEA Time Spent in Patient Care: 16 - 35 minutes (>than 50% of time spent in c ounselling and/or direct pt care on unit) . Coding Level of Care Code Acute Aerospace Technician for Jignesh Emerson Diagnoses ESRD (end stage renal disease) on dialysis N18.6; Z99.2
--- NOTE | 2021-10-24 09:04 | USCV_ITS ---
Vivek Harden Age: 36 Gender: M : 1985 Exam Date: 10/24/2021 09:42 Ordering Phys: Val Palmer MD Technologist: RAMANDEEP [place] [facility] [place]ication: TB / HIV + / Previous clot HISTORY: TB / HIV + / Previous clot PROCEDURES: Comparison:. 03/28/19 The venous duplex Doppler examination of both lower extremities was performed in the standard fashion. The following venous structures were evaluated: common femoral vein, profunda vein, proximal portion of the greater saphenous vein, superficial femoral vein, and the popliteal vein. In addition, the posterior tibial and peroneal trunk were evaluated. FINDINGS: Normal 2-D Doppler and augmentation and compressibility throughout the lower extremity venous structures. Additional imaging through the proximal calf veins also reveals no thrombus. Limited evaluation of the left greater saphenous vein is patent with no thrombus. Evaluation of the proximal right greater sapehnous vein was limited do to patient wound dressing. CONCLUSIONS No DVT bilateral lower extremities. Dr. Camila Alvarez DO (Electronically Signed) Final Date: 24 October 2021 11:03 S
[2021-10-24] MEDS: levoFLOXacin 500 mg Tablet OG-TUBE (09:36)
[2021-10-24] MEDS: citalopram 20 mg Tablet PO (09:36)
[2021-10-24] MEDS: bisacodyl 5 mg Tablet 10 MG PO (09:36)
[2021-10-24] MEDS: ergocalciferol (vitamin D2) 50,000 Unit Capsule 50000 UNIT PO (09:37)
--- NOTE | 2021-10-24 09:42 | PM.CONSULT ---
Providers/Reason For Consult Consulting Physician/Specialty*: Dr. Johnson, cardiology Reason for Consult*: Cardiomyopathy Attending Physician: Val Palmer MD Primary Care Provider: Rebecca Montiel MD History of Present Illness History of Present Illness Vivek Harden is a 36 year old -[place] male with past medical history of HIV on HAARt, CHF (HFrEF diagnosed in May 2021) without any prior ischemic work-up, end-stage renal disease dialysis dependent (Friday, Friday, Friday), history of testicular cancer s/p unilateral orchiectomy and chemo radiation and anemia He was admitted on 21 October 2021 with active hemoptysis hemoptysis shortness of breath and retrosternal chest discomfort. He has been in and out of the hospital multiple times in the past several months with most recent hospitalization at [place]. On arrival to ER his CTA chest showed multilobar pneumonia involving right upper and middle lobes negative for PE right pleural effusion, mild interstitial edema and dilated cardiomyopathy. He was started on broad-spectrum antibiotic with vancomycin Zosyn and azithromycin for hospital-acquired pneumonia. On 22 October around 10 PM patient was coded for PEA arrest for 10 minutes and was intubated. He underwent echocardiogram which showed severe diffuse hypokinesis with LV ejection fraction of 22% with mild concentric left ventricular hypertrophy and mildly dilated left ventricle cavity. PA pressure of 43 mmHg. Moderate to severe mitral regurgitation and possibly severe eccentric tricuspid regurgitation. There was drop in LV systolic function from 30-35% in May 2021 to 22% now. Review of Systems General: Reports: 10 or more systems reviewed and unremarkable except in HPI and below Card: Reports: edema, dyspnea on exertion and orthopnea; Denies: chest pain Resp: Reports: dyspnea, productive cough, hemoptysis and chest congestion GI: Denies: hematochezia or melena : Denies: oliguria or hematuria Musc: Denies: extremity swelling Neuro: Denies: frequent falls Psych: Denies: anxiety or depression Wilver/Lymph: Denies: petechiae or purpura All/Imm: Denies: facial swelling Medications/Allergies Home Medications Medication Instructions Recorded Confirmed Last Taken Type darunavir 800 mg-cobicistat 150 mg 1 tab PO DAILY 05/29/21 10/22/21 05/29/21 History tablet (Prezcobix) dolutegravir 50 mg tablet (Tivicay) 50 mg PO DAILY 05/29/21 10/22/21 05/29/21 History dapsone 100 mg tablet 100 mg PO DAILY 10/09/21 10/22/21 Unknown History albuterol sulfate 2.5 mg INHALATION QID PRN 10/22/21 10/22/21 Unknown History albuterol sulfate 90 mcg/actuation 2 puff INHALATION Q4H PRN 10/22/21 10/22/21 Unknown History aerosol inhaler sacubitril 24 mg-valsartan 26 mg 1 tab PO BID 10/22/21 10/22/21 Unknown History tablet (Entresto) sevelamer carbonate 800 mg tablet See Rx Instructions .ROUTE .COMPLEX 10/22/21 10/22/21 Unknown History torsemide 20 mg tablet 40 mg PO BID 10/22/21 10/22/21 Unknown History sacubitril 24 mg-valsartan 26 mg 1 tab PO BID 10/24/21 10/24/21 Unknown History tablet (Entresto) Allergies Allergy/AdvReac Type Severity Reaction Status Date / Time acetaminophen Allergy Severe ALGY-Hives Verified 10/09/21 10:21 aspirin Allergy ALGY-Rash Verified 10/21/21 20:41 Iodinated Contrast Media Allergy Unknown Verified 10/09/21 10:21 Current Medications Generic Name Dose Route Start Last Admin Trade Name Joseq PRN Reason Stop Dose Admin Albuterol/Ipratropium 3 ml 10/22/21 09:00 10/24/21 09:01 Ipratropium-Albuterol 3 Ml Neb INHALATION 3 ml Q6H.RESPIRATORY MIGUEL Administration Bisacodyl 10 mg 10/23/21 21:00 10/24/21 09:36 Bisacodyl 5 Mg Tablet PO 10 mg DAILY MIGUEL Administration Protocol Citalopram Hydrobromide 20 mg 10/22/21 09:00 10/24/21 09:36 Citalopram 20 Mg Tablet PO 20 mg DAILY MIGUEL Administration Ergocalciferol 50,000 unit 10/24/21 10:00 10/24/21 09:37 Ergocalciferol (Vitamin D2) 50,000 Unit Capsule PO 50,000 unit Q7D MIGUEL Administration Piperacillin Sod/Tazobactam 50 mls @ 100 mls/hr 10/22/21 11:00 10/24/21 02:03 Sod 3.375 gm/ Sodium Chloride IV Infused Q12H MIGUEL Infusion Protocol Norepinephrine Bitartrate 4 mg 254 mls @ 0 mls/hr 10/22/21 01:30 10/24/21 03:45 / Dextrose IV 2 mcg/min .Q0M MIGUEL 7.62 mls/hr Titration Protocol Per Protocol Fentanyl 2,500 mcg/ Sodium 250 mls @ 0 mls/hr 10/22/21 02:30 10/24/21 03:45 Chloride IV 0 mcg/hr .Q0M MIGUEL 0 mls/hr Titration Protocol Per Protocol Vancomycin HCl 1,000 mg/ 250 mls @ 250 mls/hr 10/23/21 12:00 10/24/21 02:04 Sodium Chloride IV Infused MoWeFr MIGUEL Infusion Protocol As Directed dexmedeTOMIDine 0.9 % NaCL 400 mcg in 100 mls @ 0 mls/hr 10/23/21 16:45 10/24/21 00:29 Precedex IV 0.1 mcg/kg/hr .Q0M MIGUEL 1.64 mls/hr Administration Protocol Per Protocol Levofloxacin 500 mg 10/22/21 08:30 10/24/21 09:36 Levofloxacin 500 Mg Tablet OG-TUBE 500 mg Q48H MIGUEL Administration Protocol Pantoprazole Sodium 40 mg 10/22/21 15:00 10/24/21 02:25 Pantoprazole 40 Mg Sdv IVP 40 mg Q12H MIGUEL Administration PFSH Acute PFSH: Medical History Anemia in chronic kidney disease AV fistula ESRD (end stage renal disease) on dialysis History of chemotherapy History of testicular cancer HIV (human immunodeficiency virus infection) HIV carrier Hyperkalemia Shortness of breath Tachycardia Surgical History History of orchiectomy, unilateral History of removal of Port-a-Cath S/P hemodialysis catheter insertion (11/30/20) R IJ catheter exchange S/P laparotomy Lymph node biopsy Family History Denies family history of Anesthesia complication Bleeding disorder Social History Smoking and tobacco status: current every day smoker (marijuana) Alcohol intake: never Adopted: No Caregiver/support person: Yes Lives independently: Yes Housing: House Current occupational status: disabled Pets and animals: No Sexually active: Yes Current gender identity: Male Josefa/Restorationist: Evangelical Vitals/I&O/Wt Last Vital Signs Temp 96.5 F L 10/23/21 12:30 Pulse 99 10/24/21 09:30 Resp 16 10/24/21 09:02 BP 87/65 10/24/21 04:00 Pulse Ox 98 10/24/21 09:02 10/23/21 10/24/21 10/24/21 22:59 06:59 14:59 Intake Total 1238.468 / 1365.585 593.685 / 1959.270 Output Total 2525 / 2700 50 / 2750 Balance -1286.532 / -1334.415 543.685 / -790.730 Physical Exam Narrative: EXAM NARRATIVE: GENERAL: Averagely built and averagely nourished in no acute distress HEENT: No pallor or icterus. hoarse post extubation NECK: No JVD, CARDIOVASCULAR SYSTEM: S1-S2 regular. grade 3/6 systolic murmur+ RESPIRATORY SYSTEM: coarse b/l breath sounds ABDOMEN: Soft, nontender and nondistended. Normal bowel sounds present. EXTREMITIES: No cyanosis. No edema. No signs of chronic venous insufficiency. FOREST AIDE: Patient is alert oriented ?3. No focal neurological deficits. Urinary Catheter Management: Mckeon: Cath Placed During This Visit: yes Reason for Continuing Indwelling Catheter: Accurate Measurement of Urinary Output in Critically Ill Patients Urinary Catheter Date of Insertion: 10/22/21 Urinary Catheter Time of Insertion: 02:11 Data : 10/25/21 03:12 10/25/21 03:12 Micro: Microbiology 10/22/21 13:30 Fungal Smear - Preliminary Sputum - Endotracheal Tube Aspirate 10/22/21 17:15 Gram Stain - Final Lung Right Middle Lobe 10/22/21 13:30 MRSA Culture - Final Nose Other data: EKG showed sinus tachycardia possible left atrial enlargement and nonspecific ST and T wave abnormality. A&P Assessment and plan (1) Pneumonia: being managed as per primary team. self extubated last night. Status: Acute Qualifiers: Laterality: right Lung location: lower lobe of lung Pneumonia type: due to unspecified organism Qualified Code(s): J18.9 - Pneumonia, unspecified organism (2) Cardiac arrest: PEA arrest, no EKG changes. Status: Acute (3) Congestive heart disease: Newly diagnosed cardiomyopathy. -plan for C once mycobacterial/ AFB smear are back possibly next week. -He has contrast allergy and will need steroid prep. -appears compensated. on low dose levophed presently Status: Acute Qualifiers: Heart failure chronicity: acute on chronic Heart failure type: combined systolic and diastolic Qualified Code(s): I50.43 - Acute on chronic combined systolic (congestive) and diastolic (congestive) heart failure (4) ESRD (end stage renal disease) on dialysis: Status: Acute (5) HIV (human immunodeficiency virus infection): Status: Acute Qualifiers: HIV symptom status: symptomatic Qualified Code(s): B20 - Human immunodeficiency virus [HIV] disease Coding Level of Care Code New Pt Acute Nurse Midwife/Clinical Instructor for [facility] Fwd Patient Type New History Comprehensive Exam Comprehensive Medical Decision Making High Complexity Diagnoses Pneumonia J18.9 Laterality: right Lung location: lower lobe of lung Pneumonia type: due to unspecified organism Cardiac arrest I46.9 Congestive heart disease I50.43 Heart failure chronicity: acute on chronic Heart failure type: combined systolic and diastolic ESRD (end stage renal disease) on dialysis N18.6; Z99.2 HIV (human immunodeficiency virus infection) B20 HIV symptom status: symptomatic
--- NOTE | 2021-10-24 10:38 | PC.CHAP ---
Pastoral Care Encounter/Spiritual Assessment Type of Contact [] Declined quill cleaner visit [] Patient/Family/Request visit [] Outpatient visit [] Follow-up visit [] Physician referral [] Code/Alert [x] Routine visit [] Staff referral [] Actively dying [] Patient sleeping [x] Family support [] [] Out of room [] Palliative care [] [x] Receiving care in room [] Pre-surgical visit [] Trauma [] Long length of stay [x] ICU visit [x] Other: was advised by that patient early this AM removed vent... even with hand tied to bed patient awake and responsive to questions... Relational/Emotional Strength [] Patient feels connected with others/family/visitors/staff [] Distress [] Loneliness/isolation [] Abandonment Spirituality of Patient [] Person of Josefa [] Attends Pentecostal of their Josefa [] Believes in Prayer [] Reads Bible or Gnosticist materials [] There are Spiritual issues to be addressed Diabetes Trainer Interventions [x] Prayer [] Active listening [] Non-anxious presence [] Spiritual/emotional support [] Crisis/trauma care [] Spiritual counseling [] Bereavement support [] Provided bereavement packet [] Provided Bible/devotional materials [] Provided toy/stuffed animal, coloring book to patient or family member [] Provided Communion [] Anointing/[place] [] Salvation [x] Completed spiritual assessment [] Other: Impact on Illness or Injury [] Angry [] Fearful [] Anxious [] Often cries [] Exhaustion [] Unable to work [] Unable to attend hindu [] Unable to walk/stand [] Unable to read [] Unable to drive [] Unable to eat/drink [] Unable to sleep [] Unable to be with family [] Patient intubated [] Other: Summary Time spent with patient
[2021-10-24] MEDS: piperacillin-tazobactam 3.375 GM in sodium chloride 0.9% (plus) 50 ML IV ×2 (12:37→22:13)
[2021-10-24] MEDS: lanolin oint 7 gm 1 APPLIC TOPICAL (14:25)
--- NOTE | 2021-10-24 14:53 | P.PN_ITS ---
Subjective Subjective: Interval history: -Patient seen at bedside today -Patient self extubated today early hours while tapering down sedation in preparation for planned extubation; however post extubation patient was saturating 96% on 4 L nasal cannula -Still on Levophed 4 mics-we will taper off and target MAP greater than 65 -Currently still on Precedex and will slowly taper off -Renal planning to do session of dialysis today -Also cardiology to evaluate patient for possible cardiac cath given his reduced ejection fraction on echocardiogram and for that reason patient will be n.p.o. -Other labs and imaging reviewed; so far cultures are pending and patient is on broad-spectrum antibiotics Medications: Reviewed: Yes Vitals/I&O/Wt Last Vital Signs Temp 96.6 F L 10/24/21 13:30 Pulse 98 10/24/21 14:23 Resp 16 10/24/21 14:17 BP 104/69 10/24/21 14:00 Pulse Ox 97 10/24/21 14:17 10/23/21 10/24/21 10/24/21 22:59 06:59 14:59 Intake Total 1238.468 / 1365.585 593.685 / 1959.270 51.435 / 51.435 Output Total 2525 / 2700 50 / 2750 Balance -1286.532 / -1334.415 543.685 / -790.730 51.435 / 51.435 Physical Exam Narrative: EXAM NARRATIVE: General: alert, NAD HEENT: conj clear, EOMI, PERRL, mmm, Neck: supple, no meningismus Heme: no cervical LAP Pulmonary: right subclavian HD catheter; CTAB, no wheezing, rhonchi, crackles Cardiovascular: rrr, nl s1s2, no mrg Abdomen: soft, nt, nd, no r/g, bs+ Extremities: pulses +, no edema, no c/c,left arm AV fistula : no CVA tenderness Skin: intact, no rash MSK: no back or neck pain Neurologic: grossly intact Urinary Catheter Management: Mckeon: Cath Placed During This Visit: yes Reason for Continuing Indwelling Catheter: Accurate Measurement of Urinary Output in Critically Ill Patients Urinary Catheter Date of Insertion: 10/22/21 Urinary Catheter Time of Insertion: 02:11 Data : 10/24/21 03:10 10/24/21 03:10 Other Labs: Radiology Impressions Chest CTA 10/21/21 23:24 IMPRESSION: 1. Multilobar pneumonia involving right upper and middle lobes. 2. Negative for pulmonary embolism. 3. Right pleural effusion. 4. Dilated cardiomyopathy. 5. Mild interstitial edema. Chest X-Ray 10/22/21 01:47 IMPRESSION: 1. Endotracheal tube tip 6.4 cm from the keagan. 2. Nasogastric tube tip in proximal stomach. The proximal side port is within the distal esophagus. 3. Stable placement of the dialysis catheter. 4. Worsening right-sided pneumonia. Abdomen/Pelvis CT 10/22/21 14:52 IMPRESSION: 1. Negative for focal acute inflammatory process in the abdomen or pelvis. 2. Cardiomegaly. 3. Pericardial effusion measuring up to 12 mm in thickness. 4. Small bilateral right greater than left pleural effusions. 5. Enteric tube tip in the stomach. 6. Stent seen in the vena cava at the level of the liver. 7. Moderate ascites in the abdomen. 8. Contrast in the gallbladder. 9. Bilateral right greater left nonobstructing calyceal stones. 10. Several bilateral renal cysts, negative for follow-up advised. 11. Right femoral catheter. 12. Mckeon catheter in the urinary bladder. Head CT 10/22/21 14:52 IMPRESSION: No acute intracranial abnormality. Laboratory Results WBC 6.3 10^3/uL (4.0-10.0) 10/24/21 03:10 RBC 4.04 10^6/uL (4.1-5.3) L 10/24/21 03:10 Hgb 11.5 g/dL (11.7-16.6) L 10/24/21 03:10 Hct 37.1 % (42.0-52.0) L 10/24/21 03:10 MCV 91.8 fl (80-94) 10/24/21 03:10 MCH 28.5 pg (28.0-34.0) 10/24/21 03:10 MCHC 31.0 g/dL (30.0-36.0) 10/24/21 03:10 RDW 18.9 % (12.1-15.1) H 10/24/21 03:10 Plt Count 101 10^3/cmm (130-400) L 10/24/21 03:10 MPV 12.1 fL (7.4-10.4) H 10/24/21 03:10 Neut % (Auto) 79.2 % 10/24/21 03:10 Lymph % (Auto) 14.4 % 10/24/21 03:10 Bremer % (Auto) 5.5 % 10/24/21 03:10 Eos % (Auto) 0.2 % 10/24/21 03:10 Baso % (Auto) 0.2 % 10/24/21 03:10 Neut # (Auto) 5.00 10^3/uL (1.8-7.7) 10/24/21 03:10 Lymph # (Auto) 0.9 10^3/uL (0.8-4.8) 10/24/21 03:10 Bremer # (Auto) 0.4 10^3/uL (0.2-0.9) 10/24/21 03:10 Eos # (Auto) 0.0 10^3/uL (0.0-0.8) 10/24/21 03:10 Baso # (Auto) 0.0 10^3/uL (0.0-0.1) 10/24/21 03:10 Nucleated RBC % (auto) 0.8 % 10/24/21 03:10 Nucleated RBCs # 0.1 /100WBC 10/24/21 03:10 D-Dimer 5.56 ug/mIFEU (0-0.59) H 10/21/21 20:59 Specimen Type Arterial 10/22/21 10:20 Sample Site Radial, right 10/22/21 10:20 ABG pH 7.42 (7.35-7.45) 10/22/21 10:20 ABG pCO2 42.8 mmHg (35-45) 10/22/21 10:20 ABG pO2 68.5 mmHg (80.0-100.0) L 10/22/21 10:20 ABG HCO3 27.8 mmol/L (22-26) H 10/22/21 10:20 ABG O2 Saturation 98.6 10/22/21 05:00 ABG Base Excess 2.9 mmol/L (-2.0-2.0) H 10/22/21 10:20 Wilfred Test Pos 10/22/21 10:20 A-a O2 Gradient 35.0 mmHg (5-10) H 10/22/21 05:00 Hematocrit 32.7 % (42-52) L 10/22/21 10:20 Hgb O2 Saturation 96.3 % (95-100) 10/22/21 05:00 Carboxyhemoglobin 1.2 %THgb (0.4-20.1) 10/22/21 05:00 Methemoglobin 1.1 % (0.4-1.5) 10/22/21 05:00 Total Hemoglobin 10.7 g/dL (14-18) L 10/22/21 05:00 Sodium 135.0 mmol/L (131-143) 10/22/21 05:00 Potassium 4.4 mmol/L (3.5-5.0) 10/22/21 05:00 Glucose 181.0 mg/dL (70-115) H 10/22/21 05:00 Ionized Calcium 1.0 mmol/L (1.1-1.4) L 10/22/21 05:00 O2 Delivery Device Vent 10/22/21 10:20 FiO2 40.0 % 10/22/21 10:20 Tidal Volume 0.40 10/22/21 10:20 PEEP 6.0 cmH20 10/22/21 10:20 Landscape And Yardwork Laborer ID Gd 10/22/21 10:20 Sodium 134 mmol/L (136-145) L 10/24/21 03:10 Potassium 5.3 mmol/L (3.5-5.1) H 10/24/21 03:10 Chloride 92 mmol/L (98-107) L 10/24/21 03:10 Carbon Dioxide 26 mmol/L (22-29) 10/24/21 03:10 Anion Gap 21.3 (5-19) H 10/24/21 03:10 BUN 45 mg/dL (6-20) H 10/24/21 03:10 Creatinine 7.7 mg/dL (0.7-1.2) H* 10/24/21 03:10 GFR Calculation 9.6 mL/min (90-130) L 10/24/21 03:10 Glucose 89 mg/dL (65-115) 10/24/21 03:10 POC Glucose 84 mg/dL (70-110) 10/22/21 00:52 Calculated Osmolality 289 mOsm/kg (285-295) 10/24/21 03:10 Lactic Acid 1.6 mmol/L (0.5-2.2) 10/21/21 20:50 Lactate 1.8 mmol/L (0.5-2.2) 10/22/21 11:45 Calcium 6.5 mg/dL (8.5-10.5) L 10/24/21 03:10 Phosphorus 6.6 mg/dL (2.5-4.5) H 10/22/21 11:45 Iron 77 ug/dL (59-158) 10/23/21 04:13 TIBC 150 mcg/dl 10/23/21 04:13 % Saturation 51.3 % (20-50) H 10/23/21 04:13 Unsat Iron Binding 73 ug/dL (112-347) L 10/23/21 04:13 Ferritin 76142 ng/mL (30-400) H 10/23/21 04:13 Total Bilirubin 0.8 mg/dL (0.15-1.2) 10/22/21 11:45 AST 250 U/L (0-40) H 10/22/21 11:45 ALT 124 U/L (0-41) H 10/22/21 11:45 Alkaline Phosphatase 94 IU/L (40-130) 10/22/21 11:45 Creatine Kinase 469 U/L (39-308) H* 10/22/21 11:45 Troponin T Baseline 143 ng/L (0-15) H* 10/21/21 20:50 Troponin T 120 Minute 149.6 ng/L (0-15) H 10/21/21 22:52 Delta Troponin T 6.6 ABS# (0-10) 10/21/21 22:52 Troponin T Hi Sens 6Hr 144.9 ng/L (0-15) H 10/22/21 02:00 Troponin T Hi Sens 6Hr Delta 1.9 ng/L (0-12) 10/22/21 02:00 C-Reactive Protein 41.9 mg/L (0.0-4.9) H 10/21/21 22:52 Total Protein 6.8 g/dL (6.6-8.7) 10/22/21 11:45 Albumin 3.1 g/dL (3.5-5.2) L 10/22/21 11:45 Globulin 3.7 g/dL (1.3-4.6) 10/22/21 11:45 25-OH Vitamin D Total 8 ng/mL (30-100) L 10/23/21 04:13 Procalcitonin 23.65 ng/mL (0-0.5) H 10/21/21 22:52 PTH Intact 519.0 pg/mL (15-65) H 10/23/21 04:13 Calcium (PTH Intact) 7.4 mg/dL (8.5-10.5) L 10/23/21 04:13 Sputum/Fluid Cytology Cancelled 10/22/21 17:15 Bronch Specimen Source Right lobe 10/22/21 17:15 Bronchial Fluid Color Red 10/22/21 17:15 Bronchial Fluid Appearance Cloudy (CLEAR) 10/22/21 17:15 Bronchial Fluid WBC 5201 /uL 10/22/21 17:15 Bronchial Fluid RBC 20 10^3/uL 10/22/21 17:15 Bronch Cells Counted 200 10/22/21 17:15 Bronchial Neutrophils 62.00 % (0.9-2.3) H 10/22/21 17:15 Bronchial Lymphocytes 12.50 % (10.71-12.91) 10/22/21 17:15 Bronchial Eosinophils 12.00 % (0.13-0.25) H 10/22/21 17:15 Bronchial Macrophages 13.50 % (83.6-86.8) L 10/22/21 17:15 Vancomycin Trough 31.1 ug/mL (10-15) H* 10/24/21 03:10 Complement C3 70 mg/dL (90-180) L 10/22/21 11:45 Complement C4 19 mg/dL (10-40) 10/22/21 11:45 Coronavirus 229E (PCR) Not detected (NOT DETECT) 10/21/21 20:50 Hep Bs Antigen Non-reactive (Nonreactive) 10/22/21 11:45 Hep Bs Antibody 36.4 (11.5-1000) 10/22/21 11:45 Hepatitis C Antibody Non-reactive (Nonreactive) 10/22/21 11:45 Influenza Type A Ag Negative (Negative) 10/22/21 13:30 Influenza Type B Ag Negative (Negative) 10/22/21 13:30 SARS-CoV-2 (PCR) Not detected (NOT DETECT) 10/21/21 20:50 Beta-(1,3)-D-Glucan Cancelled 10/22/21 Unknown B-(1,3)-D-Glucan Intrp Cancelled 10/22/21 Unknown Micro: Microbiology 10/22/21 17:15 Gram Stain - Final Lung Right Middle Lobe Bronchoalveolar Lavage Culture - Preliminary 10/22/21 13:30 Fungal Smear - Preliminary Sputum - Endotracheal Tube Aspirate 10/22/21 13:30 MRSA Culture - Final Nose A&P Assessment and plan (1) Pneumonia: Status: Acute Qualifiers: Pneumonia type: due to unspecified organism Laterality: right Lung location: lower lobe of lung Qualified Code(s): J18.9 - Pneumonia, unspecified organism (2) History of testicular cancer: Status: Acute (3) Cardiac arrest: Status: Acute (4) Hemoptysis: Status: Acute (5) ESRD (end stage renal disease) on dialysis: Status: Acute (6) Congestive heart disease: Status: Acute Qualifiers: Heart failure type: combined systolic and diastolic Heart failure chronicity: acute on chronic Qualified Code(s): I50.43 - Acute on chronic combined systolic (congestive) and diastolic (congestive) heart failure (7) HIV (human immunodeficiency virus infection): Status: Acute Qualifiers: HIV symptom status: symptomatic Qualified Code(s): B20 - Human immunodeficiency virus [HIV] disease Plan #Acute respiratory ummrhxf-fwxcjiq-ridaome to cardiac arrest -likely secondary to blood clots as noted during intubation and patient presented with hemoptysis and shortness of breath #Underlying HIV with unknown viral load and last known CD4 count 34-possibility of opportunistic infections causing dyspnea #Upon review of CT chest-small cavitary lesion noted on right lung apex and consolidation seen in the right middle lobe and posterior right upper lobe - pneumonia versus pulmonary alveolar hemorrhage #Pulmomary alveolar hemorrhage - suspect ruptured vessel vs pulmonary renal sydrome given 3+ proteinuria previously # h/o testicular cancer s/p orcheictomy 2013 and s/p chemotherapy #?? 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 #Significant other mentioned patient had left leg DVT for which she was treated with heparin and Eliquis for total 4 weeks prior to this hospital admission- Patient has a vena cava at the level of liver on CT scan; No PE on admission CTA -S/p cardiac arrest-ROSC achieved after 10 minutes; -Patient was intubated during cardiac arrest on 10/21/2021 -Patient has good mentation and following commands and was requiring only 30% and was being evaluated for planned extubation but he extubated early hours of 10/24/2021 -Post extubation-patient is saturating 96% on 4 L nasal cannula-we will taper off accordingly -Taper off Precedex and Levophed with target maps 65 -Echo showed significantly reduced ejection fraction 22%-cardiology consulted and plan is to do cardiac cath today -CT chest-negative for PE, showed right upper lobe small cavitary lesion-suspici ous for Aspergillus/fungal/TB; AFB smears pending -S/p bronchoscopy and noted erythematous mucosa predominantly on the right bronchial tree and left main bronchus with no active bleeding noted. BAL from right middle lobe sent for microbiology cultures, fungal cultures, AFB, galactomannan, PCP PCR, and tzhxrayl-gjgrjx-wg: Cultures -Cause of hemoptysis - likely precipitated by infectious cough leading to rupture of blood vessel; given his previous zoihtlgahza-hafpat-lc MAURA, ANCA, C3, C4 and Anti GBM -Currently broadly covered with vancomycin and Zosyn and Levaquin -MRSA nares, bacterial urine antigens-negative -Mild right pleural effusion-not enough pocket to tap and also in patient with E SRD and HFrEF - Continue hemodialysis as per renal -As per significant other, patient had left leg DVT last month and was treated with heparin and Eliquis for few weeks just prior to admission - held HAART for now -N.p.o. for cardiac cath today - GI ppx : PPI - thormobocytopenia from HIV Recommendations conveyed to hospitalist,, RN, RT taking care of the patient Patient can be transferred to cardiac stepdown once he is off pressors Attestations Medical Necessity Statement*: Acute hypoxic respiratory failure leading to cardiac arrest and patient with underlying HIV and hemoptysis/multilobar pneumonia on CT chest requiring intubation and mechanical ventilation Critical Care Time: The high probability of a clinically significant, sudden or life threatening deterioration of the patient's?[neurological, pulmonary, Cardiac, infectious disease]?system(s) required my full and direct attention, intervention and personal management. The critical care time is as shown. This time is in addition to time spent performing any reported procedures but includes the following: [x]?Data and vital sign review and interpretation [x]?Patient assessment, examination and intervention [x]?Documentation [x]?Medication orders and management Critical Care Time (min): 45 Coding Level of Care Code Established Pt Acute Water Restoration Technician for Chg Fwd Patient Type Established History Comprehensive Exam Comprehensive Medical Decision Making Moderate Complexity Diagnoses Pneumonia J18.9 Pneumonia type: due to unspecified organism Laterality: right Lung location: lower lobe of lung History of testicular cancer Z85.47 Cardiac arrest I46.9 Hemoptysis R04.2 ESRD (end stage renal disease) on dialysis N18.6; Z99.2 Congestive heart disease I50.43 Heart failure type: combined systolic and diastolic Heart failure chronicity: acute on chronic HIV (human immunodeficiency virus infection) B20 HIV symptom status: symptomatic Time Spent (min) 45
--- NOTE | 2021-10-24 15:44 | PM.PN ---
Subjective Subjective: Interval history: Patient self extubated overnight at around 330 this morning. Continues to be on Precedex which is being tapered down. Levophed down to 4 mics per minute. Map maintaining in the 70s, will continue to titrate down during the day. Patient is awake alert, following command, able to answer all questions regarding his name age date of . Has some foggy memory regarding his address etc., however expect this to improve over time. Updated about all events that happened in the hospital as patient cannot recall any history at this present time. Echocardiogram now resulted with EF of 22%, severe TR. Review of his medications shows patient was also supposed to be on Entresto which was started after recent hospital admission, however patient never picked up this prescription. Medications: Reviewed: Yes Medication Review Details: Current Medications Acetaminophen (Acetaminophen 325 Mg Tablet) 650 mg PO Q6H PRN PRN Reason: Mild/Mod Pain Or Temp >/= 101 Albuterol/Ipratropium (Ipratropium-Albuterol 3 Ml Neb) 3 ml INHALATION Q6H.RESPIRATORY MIGUEL Last Admin: 10/24/21 02:51 Dose: 3 ml Documented by: Bisacodyl (Bisacodyl 5 Mg Tablet) 10 mg PO DAILY MIGUEL; Protocol Last Admin: 10/23/21 20:38 Dose: 10 mg Documented by: Citalopram Hydrobromide (Citalopram 20 Mg Tablet) 20 mg PO DAILY MIGUEL Last Admin: 10/23/21 11:10 Dose: 20 mg Documented by: Guaifenesin/Codeine Phosphate (Guaifenesin-Codeine Udc 10 Ml) 5 ml PO Q6H PRN PRN Reason: COUGH Piperacillin Sod/Tazobactam (Sod 3.375 gm/ Sodium Chloride) 50 mls @ 100 mls/hr IV Q12H MIGUEL; Protocol Last Infusion: 10/24/21 02:03 Dose: Infused Documented by: Norepinephrine Bitartrate 4 mg (/ Dextrose) 254 mls @ 0 mls/hr IV .Q0M MIGUEL; Protocol Last Titration: 10/24/21 03:45 Dose: 2 mcg/min, 7.62 mls/hr Documented by: Fentanyl 2,500 mcg/ Sodium (Chloride) 250 mls @ 0 mls/hr IV .Q0M MIGUEL; Protocol Last Titration: 10/24/21 03:45 Dose: 0 mcg/hr, 0 mls/hr Documented by: Sodium Bicarbonate 50 meq/ (Sodium Chloride) 1,050 mls @ 50 mls/hr IV .Q21H [facility] Last Admin: 10/23/21 22:00 Dose: 50 mls/hr Documented by: Albumin Human (Albumin) 12.5 gm in 50 mls @ 60 mls/hr IV PRN PRN PRN Reason: Hypotension and/or symptomatic Vancomycin HCl 1,000 mg/ (Sodium Chloride) 250 mls @ 250 mls/hr IV MoWeFr [facility]; Protocol Last Infusion: 10/24/21 02:04 Dose: Infused Documented by: dexmedeTOMIDine 0.9 % NaCL (Precedex) 400 mcg in 100 mls @ 0 mls/hr IV .Q0M [facility]; Protocol Last Admin: 10/24/21 00:29 Dose: 0.1 mcg/kg/hr, 1.64 mls/hr Documented by: Levofloxacin (Levofloxacin 500 Mg Tablet) 500 mg OG-TUBE Q48H [facility]; Protocol Last Admin: 10/22/21 10:57 Dose: 500 mg Documented by: Ondansetron HCl (Ondansetron 2 Mg/Ml Sdv 2 Ml) 4 mg IVP Q8H PRN PRN Reason: vomiting, or N/V if npo Pantoprazole Sodium (Pantoprazole 40 Mg Sdv) 40 mg IVP Q12H [facility] Last Admin: 10/24/21 02:25 Dose: 40 mg Documented by: Vitals/I&O/Wt Last Vital Signs Temp 96.6 F L 10/24/21 13:30 Pulse 98 10/24/21 14:23 Resp 16 10/24/21 14:17 BP 104/69 10/24/21 14:00 Pulse Ox 97 10/24/21 14:17 10/24/21 10/24/21 10/24/21 06:59 14:59 22:59 Intake Total 593.685 / 1959.270 51.435 / 51.435 Output Total 50 / 2750 Balance 543.685 / -790.730 51.435 / 51.435 Physical Exam Narrative: EXAM NARRATIVE: GEN: Awake, alert and oriented, no acute distress CVS: S1S2 N RS: CTA B/L except crackles over right upper lobe Abd: Soft, nt/nd , bs+ CORSAGE MAKER: no focal motor neuro deficits Urinary Catheter Management: Mckeon: Cath Placed During This Visit: yes Reason for Continuing Indwelling Catheter: Accurate Measurement of Urinary Output in Critically Ill Patients Urinary Catheter Date of Insertion: 10/22/21 Urinary Catheter Time of Insertion: 02:11 Data : 10/24/21 03:10 10/24/21 03:10 Micro: Microbiology 10/22/21 17:15 Gram Stain - Final Lung Right Middle Lobe Bronchoalveolar Lavage Culture - Preliminary 10/22/21 13:30 Fungal Smear - Preliminary Sputum - Endotracheal Tube Aspirate 10/22/21 13:30 MRSA Culture - Final Nose A&P Assessment and plan (1) Sepsis: Status: Acute Qualifiers: Sepsis type: sepsis due to unspecified organism Sepsis acute organ dysfunction status: with acute organ dysfunction Severe sepsis acute organ dysfunction type: acute respiratory failure Acute respiratory failure type: with hypoxia Severe sepsis shock status: with septic shock Qualified Code(s): A41.9 - Sepsis, unspecified organism; R65.21 - Severe sepsis with septic shock; J96.01 - Acute respiratory failure with hypoxia (2) Pneumonia: Status: Acute Qualifiers: Pneumonia type: due to unspecified organism Laterality: right Lung location: lower lobe of lung Qualified Code(s): J18.9 - Pneumonia, unspecified organism (3) Hemoptysis: Status: Acute (4) Congestive heart disease: Status: Acute Qualifiers: Heart failure type: combined systolic and diastolic Heart failure chronicity: acute on chronic Qualified Code(s): I50.43 - Acute on chronic combined systolic (congestive) and diastolic (congestive) heart failure (5) HIV (human immunodeficiency virus infection): Status: Acute Qualifiers: HIV symptom status: symptomatic Qualified Code(s): B20 - Human immunodeficiency virus [HIV] disease (6) ESRD (end stage renal disease) on dialysis: Status: Acute (7) Sleep apnea: Status: Acute Qualifiers: Sleep apnea type: unspecified type Qualified Code(s): G47.30 - Sleep apnea, unspecified (8) Cardiac arrest: Status: Acute Plan Vivek Harden is a 36-year-old male with past medical history of , HIV, on HAART ,HFrEF,? end-stage renal disease dialysis dependent Friday, history of testicular cancer HENRY currently , was admitted with chief complaint of worsening shortness of breath, hemoptysis going on over past several months, variously attributed to CHF, recurrent pneumonias, pleural effusions, multiple hospital admissions here and at OSH in [place]. Currently CTA of his chest is without any evidence of PE, it does show a dense consolidation in the right middle and upper lobes. Check Unknown LAST VL and CD4 count. #Right-sided dense consolidation/pneumonia along with acute respiratory failure requiring intubation and mechanical ventilation overnight. #PEA, status post cardiac arrest on 10/22/2021 at 3 AM, received CPR for approximately 10 minutes. -Currently on empiric antibiotic coverage with piperacillin tazobactam, vancomycin and levofloxacin # sputum Gram stain and culture : resp leoncio on gram stain thus far MRSA PCR from nares negtaive, d/c vancomycin urine bacterial Ag : negative and Legionella antigens: not collected fungal cx: negative smear, cx pending Pending: mycobacterial/ AFB smear and MTB PCR, PJP PCR Serum and sputum AG/GM: pending Serum BDG : pending - appreciate bronchoscopy and pulm recommendations # extubated today, currently doing well on 3lpm supplemental 02 # PEA arrest; h/o cardiomyopathy of uncertain etiology -Troponin elevated range 140s, past check ~119 from May, delta <10, no pericardial effusion on echo - EF 22%, down from 30-35% in 05/2021 - cardiology consult today # HIV : Hold HAART for now while inpatient. Will decide further treatment base on VL and Cd4 count. If signs of virological failure, will need to be transitioned from 2 drug to 3 drug regimen. Genotype testing not available at this time. # CKD on HD: Appreciate renal recommendations. MAURA screen negative. No kidney biopsy performed in the past per patient. start diet after dysphagia screening Attestations Medical Necessity Statement*: extubated today, still on levophed 4mcg though improving, monitor resp status, HD today, cardiac consult Critical Care Time: The high probability of a clinically significant, sudden or life threatening deterioration of the patient's [respiratory,cardiac,ID] system(s) required my full and direct attention, intervention and personal management. The critical care time is as shown. This time is in addition to time spent performing any reported procedures but includes the following: [x] Data and vital sign review and interpretation [x] Patient assessment, examination and intervention [x] Documentation [x] Medication orders and management Critical Care Time (min): 40 Coding Level of Care Code Acute Optical Laboratory Technician for g Fwd Diagnoses Sepsis A41.9; R65.21; J96.01 Sepsis type: sepsis due to unspecified organism Sepsis acute organ dysfunction status: with acute organ dysfunction Severe sepsis acute organ dysfunction type: acute respiratory failure Acute respiratory failure type: with hypoxia Severe sepsis shock status: with septic shock Pneumonia J18.9 Pneumonia type: due to unspecified organism Laterality: right Lung location: lower lobe of lung Hemoptysis R04.2 Congestive heart disease I50.43 Heart failure type: combined systolic and diastolic Heart failure chronicity: acute on chronic HIV (human immunodeficiency virus infection) B20 HIV symptom status: symptomatic ESRD (end stage renal disease) on dialysis N18.6; Z99.2 Sleep apnea G47.30 Sleep apnea type: unspecified type Cardiac arrest I46.9
[2021-10-24 15:48] LABS: Anti-Nuclear Antibody Screen NEGATIVE (NEGATIVE)
--- NOTE | 2021-10-24 19:43 | PC.NURSE ---
Shift summary: uneventful shift. patient rested in bed throughout the day. patient is currently alert to person and place, confused on time and situation and has memory deficits regarding events over the last year. Mckeon catheter removed. Dialysis is still in progress during the writing of this note.
[2021-10-25] VITALS (59 sets, daily range): BP systolic 108–167; BP diastolic 63–111; PULSE 108–126; RESP 14–45; TEMP 36.4–36.9; O2SAT 88–100
[2021-10-25] MEDS: pantoprazole 40 mg SDV IVP ×2 (02:54→15:44)
[2021-10-25 03:48] LABS: Basophils % 0.5 %; Eosinophils % 0.8 %; Hematocrit 31.5 % (42.0-52.0); Hemoglobin 9.9 g/dL (11.7-16.6); Lymphocytes # 0.4 10^3/uL (0.8-4.8); Lymphocytes % 9.2 %; Mean Corpuscular HGB Conc 31.4 g/dL (30.0-36.0); Mean Corpuscular Hemoglobin 28.6 pg (28.0-34.0); Monocytes # 0.2 10^3/uL (0.2-0.9); Monocytes % 6.3 %; Neutrophils # 3.13 10^3/uL (1.8-7.7); Neutrophils % 82.2 %; Nucleated Red Blood Cells # 0.1 /100WBC; Nucleated Red Blood Cells % 1.6 %; Platelet Count 93 10^3/cmm (130-400); Red Blood Count 3.46 10^6/uL (4.1-5.3); Red Cell Distribution Width 18.1 % (12.1-15.1); White Blood Count 3.8 10^3/uL (4.0-10.0)
[2021-10-25 04:34] LABS: Alkaline Phosphatase 62 IU/L (40-130); Aspartate Amino Transferase 39 U/L (0-40); Carbon Dioxide 24 mmol/L (22-29); Globulin 3.7 g/dL (1.3-4.6); Glucose 89 mg/dL (65-115); Osmolality Calculated 287 mOsm/kg (285-295); Sodium 136 mmol/L (136-145); Total Bilirubin 0.6 mg/dL (0.15-1.2); Total Protein 6.6 g/dL (6.6-8.7)
[2021-10-25 04:36] LABS: Alanine Aminotransferase 49 U/L (0-41); Albumin Level 2.9 g/dL (3.5-5.2); Blood Urea Nitrogen 28 mg/dL (6-20); Calcium 7.8 mg/dL (8.5-10.5); Chloride 95 mmol/L (98-107); Glomerular Filtration Rate 14.8 mL/min (90-130)
[2021-10-25 04:37] LABS: Anion Gap 20.9 (5-19); Potassium 3.9 mmol/L (3.5-5.1)
--- NOTE | 2021-10-25 05:46 | PC.NURSE ---
Addendum entered by Rebecca Cortez RN 10/25/21 05:57: witnessed waste of versed, fentanyl Original Note: Wasted: versed 45mL, fentanyl 75mL
--- NOTE | 2021-10-25 06:00 | PC.NURSE ---
Shift Note Frequent safety and comfort rounds continue. Orders and/or nursing care completed as indicated. Patient monitored for response to intervention and treatment(s). Education provided includes fall precautions, medications with side effects. Patient and/or auto service representative verbalized understanding of education. Patient remains confused and forgetful with several attempts to stand and ambulate room by self. Up to bedside command assist x1, BP x2. Patient weak and unsteady. GTT's titrated per protocol. Levophed titrated off. Patient with clear sputum production. Line and tubes patent. Will continue to monitor.
--- NOTE | 2021-10-25 07:38 | PM.PN ---
Subjective Subjective: Interval history: sleeping. no new complaints -limited exam as on m.tb precautions- to protect sterility of telenephrology cart Medications: Reviewed: Yes Medication Review Details: Current Medications Acetaminophen (Acetaminophen 325 Mg Tablet) 650 mg PO Q6H PRN PRN Reason: Mild/Mod Pain Or Temp >/= 101 Albuterol/Ipratropium (Ipratropium-Albuterol 3 Ml Neb) 3 ml INHALATION Q6H.RESPIRATORY MIGUEL Last Admin: 10/25/21 03:02 Dose: Not Given Documented by: Bisacodyl (Bisacodyl 5 Mg Tablet) 10 mg PO DAILY [facility]; Protocol Last Admin: 10/24/21 09:36 Dose: 10 mg Documented by: Citalopram Hydrobromide (Citalopram 20 Mg Tablet) 20 mg PO DAILY [facility] Last Admin: 10/24/21 09:36 Dose: 20 mg Documented by: Ergocalciferol (Ergocalciferol (Vitamin D2) 50,000 Unit Capsule) 50,000 unit PO Q7D [facility] Last Admin: 10/24/21 09:37 Dose: 50,000 unit Documented by: Guaifenesin/Codeine Phosphate (Guaifenesin-Codeine Udc 10 Ml) 5 ml PO Q6H PRN PRN Reason: COUGH Piperacillin Sod/Tazobactam (Sod 3.375 gm/ Sodium Chloride) 50 mls @ 100 mls/hr IV Q12H [facility]; Protocol Last Infusion: 10/24/21 22:53 Dose: Infused Documented by: Norepinephrine Bitartrate 4 mg (/ Dextrose) 254 mls @ 0 mls/hr IV .Q0M [facility]; Protocol Last Titration: 10/24/21 22:51 Dose: 0 mcg/min, 0 mls/hr Documented by: Fentanyl 2,500 mcg/ Sodium (Chloride) 250 mls @ 0 mls/hr IV .Q0M [facility]UEL; Protocol Last Titration: 10/24/21 03:45 Dose: 0 mcg/hr, 0 mls/hr Documented by: Albumin Human (Albumin) 12.5 gm in 50 mls @ 60 mls/hr IV PRN PRN PRN Reason: Hypotension and/or symptomatic Vancomycin HCl 1,000 mg/ (Sodium Chloride) 250 mls @ 250 mls/hr IV MoWeFr [facility]; Protocol Last Infusion: 10/24/21 02:04 Dose: Infused Documented by: dexmedeTOMIDine 0.9 % NaCL (Precedex) 400 mcg in 100 mls @ 0 mls/hr IV .Q0M [facility]; Protocol Last Admin: 10/24/21 00:29 Dose: 0.1 mcg/kg/hr, 1.64 mls/hr Documented by: Lanolin (Lanolin Oint 7 Gm) 1 applic TOPICAL PRN PRN PRN Reason: DRYNESS Last Admin: 10/24/21 14:25 Dose: 1 appful Documented by: Levofloxacin (Levofloxacin 500 Mg Tablet) 500 mg OG-TUBE Q48H [facility]; Protocol Last Admin: 10/24/21 09:36 Dose: 500 mg Documented by: Ondansetron HCl (Ondansetron 2 Mg/Ml Sdv 2 Ml) 4 mg IVP Q8H PRN PRN Reason: vomiting, or N/V if npo Pantoprazole Sodium (Pantoprazole 40 Mg Sdv) 40 mg IVP Q12H [facility] Last Admin: 10/25/21 02:54 Dose: 40 mg Documented by: Vitals/I&O/Wt Last Vital Signs Temp 97.6 F 10/25/21 04:01 Pulse 119 H 10/25/21 06:00 Resp 31 H 10/25/21 06:00 BP 125/77 10/25/21 06:00 Pulse Ox 100 10/25/21 06:00 10/24/21 10/25/21 10/25/21 22:59 06:59 14:59 Intake Total 1544.107 / 1645.542 Output Total 100 / 100 Balance 1544.107 / 1645.542 -100 / 1545.542 Physical Exam Narrative: EXAM NARRATIVE: exam by RN- pt on TB precautions- to preserve sterility of telenephrology cart extubated, comfortable vss heent- nc/at, eomi, anicteric neck - no jvp, rt PC lung crackles and ronchi b/l heart - reg, + oskar abd soft, nt, nd, +BS ext -? no edema Urinary Catheter Management: Mckeon: Cath Placed During This Visit: yes Reason for Continuing Indwelling Catheter: Accurate Measurement of Urinary Output in Critically Ill Patients Urinary Catheter Date of Insertion: 10/22/21 Urinary Catheter Time of Insertion: 02:11 Data : 10/25/21 03:12 10/25/21 03:12 Micro: Microbiology 10/23/21 18:10 Gram Stain - Final Sputum - Endotracheal Tube Aspirate 10/22/21 17:15 Gram Stain - Final Lung Right Middle Lobe Bronchoalveolar Lavage Culture - Preliminary 10/22/21 13:30 Fungal Smear - Preliminary Sputum - Endotracheal Tube Aspirate A&P Assessment and plan (1) ESRD (end stage renal disease) on dialysis: 36-year-old male with past medical history of? HIV, on HAART therapy, HFrEF,? end-stage renal disease dialysis dependent Friday, history of testicular cancer. 1. ESRD-? -phos binder -s/p HD yesterday -repeat hd now- 3- 3.5 hrs, 2k, remove fluids as possible 2. Right-sided dense consolidation/pneumonia along with acute respiratory failure requiring intubation and mechanical ventilation overnight. -renal dose abx s/p bronch -agree w/ vasculitis eval -steroids if needed per pulm - ID is following- Dr. Moore -hold vanco till level under 30 -await sputum for tb (AFB) 3. PEA, status post cardiac arrest on 10/22/2021 at 3 AM, received CPR for approximately 10 minutes. 4. a flutter per medicine - now in NSR -agree w/ cardiac eval and potential cardiac cath 5 HIV/ AIDS : per ID 6. hgb okay- ferritin [id number]- no iron 7. thrombocytopenia- improving 8. replete vit d seen and examined w/ RN- telehealth visit-? time spent 25 minutes Status: Acute Plan see above Attestations Medical Necessity Statement*: hiv, pna, esrd, low ef Time Spent in Patient Care: 16 - 35 minutes (>than 50% of time spent in counselling and/or direct pt care on unit). Coding Level of Care Code Acute Instant Print Operator for Famg Fwd Diagnoses ESRD (end stage renal disease) on dialysis N18.6; Z99.2
[2021-10-25] MEDS: ipratropium-albuterol 3 mL Neb INHALATION ×3 (09:41→20:58)
[2021-10-25] MEDS: citalopram 20 mg Tablet PO (09:46)
[2021-10-25] MEDS: piperacillin-tazobactam 3.375 GM in sodium chloride 0.9% (plus) 50 ML IV ×2 (10:17→22:47)
--- NOTE | 2021-10-25 10:57 | PC.NURSE ---
Central line in right femral vein removed, as ordered Pressure held until hemostasis obtained. Gauze and bioclusive dressing applied. Cath ti intact. NO redness or welling noted at site. Pt tolerated well. Pt instructed to hpld is leg still for 30 minutes.
[2021-10-25 13:21] LABS: Glomerular Bsmt Membrane IGG <1.0 AI
--- NOTE | 2021-10-25 13:36 | P.PN_ITS ---
Subjective Subjective: Interval history: -Patient seen at bedside -No overnight events; had dialysis yesterday and 2 L fluid removed -Still having blood-tinged sputum when he coughs up -Currently off Precedex and pressors -He is sitting up and having meaningful conversation-appears weak -We will do swallow evaluation and advance diet as tolerated -Still cultures are pending and plan is to do cardiac cath once AFB is negative -Other labs and imaging reviewed Medications: Reviewed: Yes Vitals/I&O/Wt Last Vital Signs Temp 97.6 F 10/25/21 04:01 Pulse 122 H 10/25/21 11:01 Resp 23 H 10/25/21 11:01 BP 150/93 10/25/21 11:01 Pulse Ox 95 10/25/21 11:01 10/24/21 10/25/21 10/25/21 22:59 06:59 14:59 Intake Total 1544.107 / 1645.542 380 / 380 Output Total 100 / 100 Balance 1544.107 / 1645.542 -100 / 1545.542 380 / 380 Physical Exam Narrative: EXAM NARRATIVE: General: alert, NAD HEENT: conj clear, EOMI, PERRL, mmm, Neck: supple, no meningismus Heme: no cervical LAP Pulmonary: right subclavian HD catheter; CTAB, no wheezing, rhonchi, crackles Cardiovascular: rrr, nl s1s2, no mrg Abdomen: soft, nt, nd, no r/g, bs+ Extremities: pulses +, no edema, no c/c,left arm AV fistula : no CVA tenderness Skin: intact, no rash MSK: no back or neck pain Neurologic: grossly intact Urinary Catheter Management: Mckeon: Cath Placed During This Visit: yes Reason for Continuing Indwelling Catheter: Accurate Measurement of Urinary Output in Critically Ill Patients Urinary Catheter Date of Insertion: 10/22/21 Urinary Catheter Time of Insertion: 02:11 Data : 10/25/21 03:12 10/25/21 03:12 Other Labs: Radiology Impressions Chest CTA 10/21/21 23:24 IMPRESSION: 1. Multilobar pneumonia involving right upper and middle lobes. 2. Negative for pulmonary embolism. 3. Right pleural effusion. 4. Dilated cardiomyopathy. 5. Mild interstitial edema. Chest X-Ray 10/22/21 01:47 IMPRESSION: 1. Endotracheal tube tip 6.4 cm from the keagan. 2. Nasogastric tube tip in proximal stomach. The proximal side port is within the distal esophagus. 3. Stable placement of the dialysis catheter. 4. Worsening right-sided pneumonia. Abdomen/Pelvis CT 10/22/21 14:52 IMPRESSION: 1. Negative for focal acute inflammatory process in the abdomen or pelvis. 2. Cardiomegaly. 3. Pericardial effusion measuring up to 12 mm in thickness. 4. Small bilateral right greater than left pleural effusions. 5. Enteric tube tip in the stomach. 6. Stent seen in the vena cava at the level of the liver. 7. Moderate ascites in the abdomen. 8. Contrast in the gallbladder. 9. Bilateral right greater left nonobstructing calyceal stones. 10. Several bilateral renal cysts, negative for follow-up advised. 11. Right femoral catheter. 12. Mckeon catheter in the urinary bladder. Head CT 10/22/21 14:52 IMPRESSION: No acute intracranial abnormality. Laboratory Results WBC 3.8 10^3/uL (4.0-10.0) L 10/25/21 03:12 RBC 3.46 10^6/uL (4.1-5.3) L 10/25/21 03:12 Hgb 9.9 g/dL (11.7-16.6) L 10/25/21 03:12 Hct 31.5 % (42.0-52.0) L 10/25/21 03:12 MCV 91.0 fl (80-94) 10/25/21 03:12 MCH 28.6 pg (28.0-34.0) 10/25/21 03:12 MCHC 31.4 g/dL (30.0-36.0) 10/25/21 03:12 RDW 18.1 % (12.1-15.1) H 10/25/21 03:12 Plt Count 93 10^3/cmm (130-400) L 10/25/21 03:12 MPV 12.0 fL (7.4-10.4) H 10/25/21 03:12 Neut % (Auto) 82.2 % 10/25/21 03:12 Lymph % (Auto) 9.2 % 10/25/21 03:12 [place] % (Auto) 6.3 % 10/25/21 03:12 Eos % (Auto) 0.8 % 10/25/21 03:12 Baso % (Auto) 0.5 % 10/25/21 03:12 Neut # (Auto) 3.13 10^3/uL (1.8-7.7) 10/25/21 03:12 Lymph # (Auto) 0.4 10^3/uL (0.8-4.8) L 10/25/21 03:12 [place] # (Auto) 0.2 10^3/uL (0.2-0.9) 10/25/21 03:12 Eos # (Auto) 0.0 10^3/uL (0.0-0.8) 10/25/21 03:12 Baso # (Auto) 0.0 10^3/uL (0.0-0.1) 10/25/21 03:12 Nucleated RBC % (auto) 1.6 % 10/25/21 03:12 Nucleated RBCs # 0.1 /100WBC 10/25/21 03:12 D-Dimer 5.56 ug/mIFEU (0-0.59) H 10/21/21 20:59 Specimen Type Arterial 10/22/21 10:20 Sample Site Radial, right 10/22/21 10:20 ABG pH 7.42 (7.35-7.45) 10/22/21 10:20 ABG pCO2 42.8 mmHg (35-45) 10/22/21 10:20 ABG pO2 68.5 mmHg (80.0-100.0) L 10/22/21 10:20 ABG HCO3 27.8 mmol/L (22-26) H 10/22/21 10:20 ABG O2 Saturation 98.6 10/22/21 05:00 ABG Base Excess 2.9 mmol/L (-2.0-2.0) H 10/22/21 10:20 Wilfred Test Pos 10/22/21 10:20 A-a O2 Gradient 35.0 mmHg (5-10) H 10/22/21 05:00 Hematocrit 32.7 % (42-52) L 10/22/21 10:20 Hgb O2 Saturation 96.3 % (95-100) 10/22/21 05:00 Carboxyhemoglobin 1.2 %THgb (0.4-20.1) 10/22/21 05:00 Methemoglobin 1.1 % (0.4-1.5) 10/22/21 05:00 Total Hemoglobin 10.7 g/dL (14-18) L 10/22/21 05:00 Sodium 135.0 mmol/L (131-143) 10/22/21 05:00 Potassium 4.4 mmol/L (3.5-5.0) 10/22/21 05:00 Glucose 181.0 mg/dL (70-115) H 10/22/21 05:00 Ionized Calcium 1.0 mmol/L (1.1-1.4) L 10/22/21 05:00 O2 Delivery Device Vent 10/22/21 10:20 FiO2 40.0 % 10/22/21 10:20 Tidal Volume 0.40 10/22/21 10:20 PEEP 6.0 cmH20 10/22/21 10:20 Tapering Machine Operator ID Gd 10/22/21 10:20 Sodium 136 mmol/L (136-145) 10/25/21 03:12 Potassium 3.9 mmol/L (3.5-5.1) 10/25/21 03:12 Chloride 95 mmol/L (98-107) L 10/25/21 03:12 Carbon Dioxide 24 mmol/L (22-29) 10/25/21 03:12 Anion Gap 20.9 (5-19) H 10/25/21 03:12 BUN 28 mg/dL (6-20) H 10/25/21 03:12 Creatinine 5.3 mg/dL (0.7-1.2) H 10/25/21 03:12 GFR Calculation 14.8 mL/min (90-130) L 10/25/21 03:12 Glucose 89 mg/dL (65-115) 10/25/21 03:12 POC Glucose 84 mg/dL (70-110) 10/22/21 00:52 Calculated Osmolality 287 mOsm/kg (285-295) 10/25/21 03:12 Lactic Acid 1.6 mmol/L (0.5-2.2) 10/21/21 20:50 Lactate 1.8 mmol/L (0.5-2.2) 10/22/21 11:45 Calcium 7.8 mg/dL (8.5-10.5) L 10/25/21 03:12 Phosphorus 6.6 mg/dL (2.5-4.5) H 10/22/21 11:45 Iron 77 ug/dL (59-158) 10/23/21 04:13 TIBC 150 mcg/dl 10/23/21 04:13 % Saturation 51.3 % (20-50) H 10/23/21 04:13 Unsat Iron Binding 73 ug/dL (112-347) L 10/23/21 04:13 Ferritin 70402 ng/mL (30-400) H 10/23/21 04:13 Total Bilirubin 0.6 mg/dL (0.15-1.2) 10/25/21 03:12 AST 39 U/L (0-40) 10/25/21 03:12 ALT 49 U/L (0-41) H 10/25/21 03:12 Alkaline Phosphatase 62 IU/L (40-130) 10/25/21 03:12 Creatine Kinase 469 U/L (39-308) H* 10/22/21 11:45 Troponin T Baseline 143 ng/L (0-15) H* 10/21/21 20:50 Troponin T 120 Minute 149.6 ng/L (0-15) H 10/21/21 22:52 Delta Troponin T 6.6 ABS# (0-10) 10/21/21 22:52 Troponin T Hi Sens 6Hr 144.9 ng/L (0-15) H 10/22/21 02:00 Troponin T Hi Sens 6Hr Delta 1.9 ng/L (0-12) 10/22/21 02:00 C-Reactive Protein 41.9 mg/L (0.0-4.9) H 10/21/21 22:52 Total Protein 6.6 g/dL (6.6-8.7) 10/25/21 03:12 Albumin 2.9 g/dL (3.5-5.2) L 10/25/21 03:12 Globulin 3.7 g/dL (1.3-4.6) 10/25/21 03:12 25-OH Vitamin D Total 8 ng/mL (30-100) L 10/23/21 04:13 Procalcitonin 23.65 ng/mL (0-0.5) H 10/21/21 22:52 PTH Intact 519.0 pg/mL (15-65) H 10/23/21 04:13 Calcium (PTH Intact) 7.4 mg/dL (8.5-10.5) L 10/23/21 04:13 Sputum/Fluid Cytology Cancelled 10/22/21 17:15 Bronch Specimen Source Right lobe 10/22/21 17:15 Bronchial Fluid Color Red 10/22/21 17:15 Bronchial Fluid Appearance Cloudy (CLEAR) 10/22/21 17:15 Bronchial Fluid WBC 5201 /uL 10/22/21 17:15 Bronchial Fluid RBC 20 10^3/uL 10/22/21 17:15 Bronch Cells Counted 200 10/22/21 17:15 Bronchial Neutrophils 62.00 % (0.9-2.3) H 10/22/21 17:15 Bronchial Lymphocytes 12.50 % (10.71-12.91) 10/22/21 17:15 Bronchial Eosinophils 12.00 % (0.13-0.25) H 10/22/21 17:15 Bronchial Macrophages 13.50 % (83.6-86.8) L 10/22/21 17:15 Vancomycin Trough 31.1 ug/mL (10-15) H* 10/24/21 03:10 MAURA Screen Negative (NEGATIVE) 10/22/21 04:13 Glomerular Base Mem IgG <1.0 AI 10/22/21 04:13 Complement C3 70 mg/dL (90-180) L 10/22/21 11:45 Complement C4 19 mg/dL (10-40) 10/22/21 11:45 Coronavirus 229E (PCR) Not detected (NOT DETECT) 10/21/21 20:50 Hep Bs Antigen Non-reactive (Nonreactive) 10/22/21 11:45 Hep Bs Antibody 36.4 (11.5-1000) 10/22/21 11:45 Hepatitis C Antibody Non-reactive (Nonreactive) 10/22/21 11:45 Influenza Type A Ag Negative (Negative) 10/22/21 13:30 Influenza Type B Ag Negative (Negative) 10/22/21 13:30 SARS-CoV-2 (PCR) Not detected (NOT DETECT) 10/21/21 20:50 Beta-(1,3)-D-Glucan Cancelled 10/22/21 Unknown B-(1,3)-D-Glucan Intrp Cancelled 10/22/21 Unknown Micro: Microbiology 10/23/21 18:10 Gram Stain - Final Sputum - Endotracheal Tube Aspirate 10/22/21 17:15 Gram Stain - Final Lung Right Middle Lobe Bronchoalveolar Lavage Culture - Preliminary 10/22/21 13:30 Fungal Smear - Preliminary Sputum - Endotracheal Tube Aspirate A&P Assessment and plan (1) Pneumonia: Status: Acute Qualifiers: Pneumonia type: due to unspecified organism Laterality: right Lung location: lower lobe of lung Qualified Code(s): J18.9 - Pneumonia, unspecified organism (2) History of testicular cancer: Status: Acute (3) Cardiac arrest: Status: Acute (4) Hemoptysis: Status: Acute (5) ESRD (end stage renal disease) on dialysis: Status: Acute (6) Congestive heart disease: Status: Acute Qualifiers: Heart failure type: combined systolic and diastolic Heart failure chronicity: acute on chronic Qualified Code(s): I50.43 - Acute on chronic com bined systolic (congestive) and diastolic (congestive) heart failure (7) HIV (human immunodeficiency virus infection): Status: Acute Qualifiers: HIV symptom status: symptomatic Qualified Code(s): B20 - Human immunodeficiency virus [HIV] disease Plan #Acute respiratory bdfezyd-egsvggp-[id number] to cardiac arrest -likely secondary to blood clots as noted during intubation and patient presented with hemoptysis and shortness of breath #Underlying HIV with unknown viral load and last known CD4 count 34-possibility of opportunistic infections causing dyspnea #Upon review of CT chest-small cavitary lesion noted on right lung apex and consolidation seen in the right middle lobe and posterior right upper lobe - pneumonia versus pulmonary alveolar hemorrhage #Pulmomary alveolar hemorrhage - suspect ruptured vessel vs pulmonary renal sydrome given 3+ proteinuria previously # h/o testicular cancer s/p orcheictomy 2013 and s/p chemotherapy #?? 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 #Significant other mentioned patient had left leg DVT for which she was treated with heparin and Eliquis for total 4 weeks prior to this hospital admission- Patient has a vena cava at the level of liver on CT scan; No PE on admission CTA -S/p cardiac arrest-ROSC achieved after 10 minutes; Patient was intubated during cardiac arrest on 10/21/2021 -Patient has good mentation and following commands and was requiring only 30% and was being evaluated for planned extubation but he selfextubated early hours of 10/24/2021 -Post extubation-patient is saturating 96% on 3 L nasal cannula-we will taper off accordingly -Off pressors for 24 hours -Echo showed significantly reduced ejection fraction 22%-cardiology plan to do cardiac cath -CT chest-negative for PE, showed right upper lobe small cavitary lesion-susp icious for Aspergillus/fungal/TB; AFB smears pending -S/p bronchoscopy and noted erythematous mucosa predominantly on the right bronchial tree and left main bronchus with no active bleeding noted. BAL from right middle lobe sent for microbiology cultures, fungal cultures, AFB, galactomannan, PCP PCR, and [id number]: Cultures -Cause of hemoptysis - likely precipitated by infectious cough leading to rupture of blood vessel; given his previous fdmtidgbyok-otioaf-id MAURA, ANCA, C3, C4 and Anti GBM -Currently broadly covered with vancomycin and Zosyn and Levaquin -MRSA nares, bacterial urine antigens-negative -Mild right pleural effusion-not enough pocket to tap and also in patient with ESRD and HFrEF - Continue hemodialysis as per renal -As per significant other, patient had left leg DVT last month and was treated with heparin and Eliquis for few weeks just prior to admission-during this admission bilateral lower extremity Doppler negative for DVT and recent CTA negative for PE - held HAART for now -On clear liquids-swallow evaluation and advance diet as tolerated - GI ppx : PPI - thormobocytopenia from HIV Recommendations conveyed to hospitalist,, RN, RT taking care of the patient Patient can move out of ICU Attestations Medical Necessity Statement*: Acute hypoxic respiratory failure leading to cardiac arrest and patient with underlying HIV and hemoptysis/multilobar pneumonia on CT chest requiring intubation and mechanical ventilation Critical Care Time: The high probability of a clinically significant, sudden or life threatening deterioration of the patient's?[neurological, pulmonary, Cardiac, infectious disease]?system(s) required my full and direct attention, intervention and personal management. The critical care time is as shown. This time is in addition to time spent performing any reported procedures but includes the following: [x]?Data and vital sign review and interpretation [x]?Patient assessment, examination and intervention [x]?Documentation [x]?Medication orders and management Critical Care Time (min): 45 Coding Level of Care Code Established Pt Acute Sweat Box Attendant for Chg Fwd Patient Type Established History Comprehensive Exam Comprehensive Medical Decision Making High Complexity Diagnoses Pneumonia J18.9 Pneumonia type: due to unspecified organism Laterality: right Lung location: lower lobe of lung History of testicular cancer Z85.47 Cardiac arrest I46.9 Hemoptysis R04.2 ESRD (end stage renal disease) on dialysis N18.6; Z99.2 Congestive heart disease I50.43 Heart failure type: combined systolic and diastolic Heart failure chronicity: acute on chronic HIV (human immunodeficiency virus infection) B20 HIV symptom status: symptomatic Time Spent (min) 45
--- NOTE | 2021-10-25 15:48 | PC.SOCIAL ---
IMM update IMM updated with patient. Verbalized an understanding. Initialled, dated, timed, and placed in chart.
--- NOTE | 2021-10-25 16:10 | PM.PN ---
Subjective Subjective: Interval history: Off levophed now, saturating 95% on RA today, has some blood tinged sputum expectorated but no gross hemoptysis. Off precedex. Tachycardia with HR 120s. BP stable. Received callback from case repairer at [facility]- patient has not followed up there since June 2020, no VL or Cd4 count on record. LE duplex without DVT. AFB smear 10/01 reported negative so far, pending 11/01, pending MTB PCR. Endotracheal aspirate negative AFB smear, pending MTB PCR. Medications: Reviewed: Yes Vitals/I&O/Wt Last Vital Signs Temp 97.6 F 10/25/21 04:01 Pulse 122 H 10/25/21 11:01 Resp 23 H 10/25/21 11:01 BP 150/93 10/25/21 11:01 Pulse Ox 95 10/25/21 11:01 10/25/21 10/25/21 10/25/21 06:59 14:59 22:59 Intake Total 430 / 430 Output Total 100 / 100 Balance -100 / 1545.542 430 / 430 Physical Exam Narrative: EXAM NARRATIVE: GEN: Awake, alert and oriented, no acute distress CVS: S1S2 N RS: CTA B/L Abd: Soft, nt/nd , bs+ MODEL AND PATTERN SUPERVISOR: no focal neuro deficits Urinary Catheter Management: Mckeon: Cath Placed During This Visit: yes Reason for Continuing Indwelling Catheter: Accurate Measurement of Urinary Output in Critically Ill Patients Urinary Catheter Date of Insertion: 10/22/21 Urinary Catheter Time of Insertion: 02:11 Data : 10/25/21 03:12 10/25/21 03:12 Micro: Microbiology 10/22/21 17:15 Mycobacterial Smear - Preliminary Sputum - Endotracheal Wash 10/22/21 13:30 Fungal Smear - Preliminary Sputum - Endotracheal Tube Aspirate Mycobacterial Smear - Preliminary 10/23/21 18:10 Gram Stain - Final Sputum - Endotracheal Tube Aspirate Sputum Culture - Preliminary 10/22/21 17:15 Gram Stain - Final Lung Right Middle Lobe Bronchoalveolar Lavage Culture - Final A&P Assessment and plan (1) Sepsis: Status: Acute Qualifiers: Sepsis type: sepsis due to unspecified organism Sepsis acute organ dysfunction status: with acute organ dysfunction Severe sepsis acute organ dysfunction type: acute respiratory failure Acute respiratory failure type: with hypoxia Severe sepsis shock status: with septic shock Qualified Code(s): A41.9 - Sepsis, unspecified organism; R65.21 - Severe sepsis with septic shock; J96.01 - Acute respiratory failure with hypoxia (2) Pneumonia: Status: Acute Qualifiers: Pneumonia type: due to unspecified organism Laterality: right Lung location: lower lobe of lung Qualified Code(s): J18.9 - Pneumonia, unspecified organism (3) Hemoptysis: Status: Acute (4) Congestive heart disease: Status: Acute Qualifiers: Heart failure type: combined systolic and diastolic Heart failure chronicity: acute on chronic Qualified Code(s): I50.43 - Acute on chronic combined systolic (congestive) and diastolic (congestive) heart failure (5) HIV (human immunodeficiency virus infection): Status: Acute Qualifiers: HIV symptom status: symptomatic Qualified Code(s): B20 - Human immunodeficiency virus [HIV] disease (6) ESRD (end stage renal disease) on dialysis: Status: Acute (7) Sleep apnea: Status: Acute Qualifiers: Sleep apnea type: unspecified type Qualified Code(s): G47.30 - Sleep apnea, unspecified (8) Cardiac arrest: Status: Acute Plan Vivek Harden is a 36-year-old male with past medical history of , HIV, on HAART ,HFrEF,? end-stage renal disease dialysis dependent Friday, history of testicular cancer HENRY currently , was admitted with chief complaint of worsening shortness of breath, hemoptysis going on over past several months, variously attributed to CHF, recurrent pneumonias, pleural effusions, multiple hospital admissions here and at OSH in [place]. Currently CTA of his chest is without any evidence of PE, it does show a dense consolidation in the right middle and upper lobes. Unknown LAST VL; CD4 count : 36 #Right-sided dense consolidation/pneumonia along with acute respiratory failure requiring intubation and mechanical ventilation overnight. #PEA, status post cardiac arrest on 10/22/2021 at 3 AM, received CPR for approximately 10 minutes. -Currently on empiric antibiotic coverage with piperacillin tazobactam and levofloxacin day 4 today # sputum Gram stain and culture : resp leoncio on gram stain thus far MRSA PCR from nares negative, d/c vancomycin 10/22-10/24 urine bacterial Ag : negative and Legionella antigens: not collected fungal cx: few C. glabrata from bronch wash, unlikely to be the cause of pneumonia in the absence of fungemia, more likely from oropharyngeal thrush, add nystatin Pending: mycobacterial/ AFB smear x 2 from endotrach aspirate; 1 smear negative, pending PCR Negative MTB AFB smear from bronch wash, pending PCR pending PJP PCR Serum and bronch AG/GM: pending Serum BDG : pending - appreciate bronchoscopy and pulm recommendations # extubated today, currently doing well on 3lpm supplemental 02 # PEA arrest; h/o cardiomyopathy of uncertain etiology -Troponin elevated range 140s, past check ~119 from May, delta <10, no pericardial effusion on echo - EF 22%, down from 30-35% in 05/2021 - cardiology consult appreciated - plan for LHC once MTB ruled out -add metoprolol 25mg po BID for sinus tachycardia 120/min # HIV : Hold HAART for now while inpatient. Will decide further treatment base on VL and Cd4 count. If signs of virological failure, will need to be transitioned from 2 drug to 3 drug regimen. Genotype testing not available at this time. Received callback from HIV clinic in [place]- patient has not followed since jun 2020, No VL or genotype on record there; last know CD4 count 36 at [facility] ??compliance with HIV regimen?? # CKD on HD: Appreciate renal recommendations. MAURA screen negative. No kidney biopsy performed in the past per patient. Transfer out of ICU to CSU Attestations Medical Necessity Statement*: off pressors today, still with mild heoptysis, ongoing need for IV abx, HD, pending pneumonia w/up, LHC once MTB ruled out. Coding Level of Care Code Acute Signal Apprentice for [facility] Diagnoses Sepsis A41.9; R65.21; J96.01 Sepsis type: sepsis due to unspecified organism Sepsis acute organ dysfunction status: with acute organ dysfunction Severe sepsis acute organ dysfunction type: acute respiratory failure Acute respiratory failure type: with hypoxia Severe sepsis shock status: with septic shock Pneumonia J18.9 Pneumonia type: due to unspecified organism Laterality: right Lung location: lower lobe of lung Hemoptysis R04.2 Congestive heart disease I50.43 Heart failure type: combined systolic and diastolic Heart failure chronicity: acute on chronic HIV (human immunodeficiency virus infection) B20 HIV symptom status: symptomatic ESRD (end stage renal disease) on dialysis N18.6; Z99.2 Sleep apnea G47.30 Sleep apnea type: unspecified type Cardiac arrest I46.9
--- NOTE | 2021-10-25 19:17 | PC.NURSE ---
Shift Note Pt rested in bed most of day. He did get out of bed to recliner this afternoon. He does tire easily. He has been up to [facility] several times today. He did have a large BM today. He remains confused, but moni was September and the president. He refused his medications at 1800. Central line removed today. New peripheral IV. SO, Cassandra wanted to get [employer] for him for dinner. Frequent safety and comfort rounds continue. Orders and/or nursing care completed as indicated. Patient monitored for response to intervention and treatment(s). Education provided includes Dialysis and kidney diets, Protonix, PT and Zosyn. Patient and/or cash posting representative verbalizes understanding fo progress, dialysis, medications and plan of care. Will continue to monitor.
[2021-10-25] MEDS: metoprolol tartrate 25 mg Tablet PO (20:46)
[2021-10-25] MEDS: nystatin 100,000 unit/mL UDC 5 mL 500000 UNIT PO (20:46)
[2021-10-26] VITALS (44 sets, daily range): BP systolic 112–144; BP diastolic 06–98; PULSE 100–117; RESP 13–43; TEMP 36.4–37.1; O2SAT 86–100
[2021-10-26 03:17] LABS: Basophils % 0.3 %; Eosinophils % 0.6 %; Hematocrit 32.5 % (42.0-52.0); Hemoglobin 10.3 g/dL (11.7-16.6); Lymphocytes # 0.4 10^3/uL (0.8-4.8); Lymphocytes % 12.4 %; Mean Corpuscular HGB Conc 31.7 g/dL (30.0-36.0); Mean Corpuscular Hemoglobin 29.3 pg (28.0-34.0); Mean Corpuscular Volume 92.6 fl (80-94); Mean Platelet Volume 11.1 fL (7.4-10.4); Monocytes # 0.3 10^3/uL (0.2-0.9); Monocytes % 8.8 %; Neutrophils # 2.52 10^3/uL (1.8-7.7); Neutrophils % 76.4 %; Nucleated Red Blood Cells # 0.1 /100WBC; Platelet Count 104 10^3/cmm (130-400); Red Blood Count 3.51 10^6/uL (4.1-5.3); Red Cell Distribution Width 18.4 % (12.1-15.1); White Blood Count 3.3 10^3/uL (4.0-10.0)
[2021-10-26 03:31] LABS: Alanine Aminotransferase 43 U/L (0-41); Albumin Level 3.2 g/dL (3.5-5.2); Alkaline Phosphatase 64 IU/L (40-130); Anion Gap 21.8 (5-19); Aspartate Amino Transferase 35 U/L (0-40); Blood Urea Nitrogen 36 mg/dL (6-20); Calcium 8.5 mg/dL (8.5-10.5); Carbon Dioxide 23 mmol/L (22-29); Chloride 99 mmol/L (98-107); Globulin 3.8 g/dL (1.3-4.6); Glomerular Filtration Rate 11.1 mL/min (90-130); Glucose 93 mg/dL (65-115); Magnesium 2.5 mg/dL (1.7-2.3); Osmolality Calculated 298 mOsm/kg (285-295); Phosphorus 5.4 mg/dL (2.5-4.5); Potassium 3.8 mmol/L (3.5-5.1); Sodium 140 mmol/L (136-145); Total Bilirubin 0.5 mg/dL (0.15-1.2)
--- NOTE | 2021-10-26 05:18 | PC.NURSE ---
Shift Note Frequent safety and comfort rounds continue. Orders and/or nursing care completed as indicated. Patient monitored for response to intervention and treatment(s). Education provided includes fall precautions, medications with side effects, renal diet. Patient and/or front office representative verbalized understanding of education. Approx 02:35 patient had 12 beat run x1. labs drawn and critical called. Will continue to monitor.
--- NOTE | 2021-10-26 06:20 | PC.NURSE ---
Patient remains confused, impulsive but easily redirected and cooperative. Patient's fiance stayed at bedside with charge nurse permission. She was very helpful in redirecting patient from jumping out of bed.
[2021-10-26] MEDS: pantoprazole DR 40 mg Tablet PO ×2 (08:46→17:22)
[2021-10-26] MEDS: levoFLOXacin 500 mg Tablet OG-TUBE (08:46)
[2021-10-26] MEDS: citalopram 20 mg Tablet PO (08:47)
[2021-10-26] MEDS: metoprolol tartrate 25 mg Tablet PO ×2 (08:47→19:17)
[2021-10-26] MEDS: nystatin 100,000 unit/mL UDC 5 mL 500000 UNIT PO ×4 (08:53→19:18)
--- NOTE | 2021-10-26 11:00 | PC.NURSE ---
Dialysis nurse, Nestor Grissom reufsed to allow pt to eat breakfast while receiving dialysis due to concerns about the BP.
[2021-10-26] MEDS: piperacillin-tazobactam 3.375 GM in sodium chloride 0.9% (plus) 50 ML IV ×2 (11:45→22:04)
--- NOTE | 2021-10-26 11:54 | P.PN_ITS ---
Subjective Subjective: Interval history: Mr. Harden is seen and examined on dialysis today. Currently tolerating the therapy well. Awake alert, oriented, about to enjoy his breakfast. Breathing com fortably, denies any fevers or chills. Vitals/I&O/Wt Last Vital Signs Temp 98.4 F 10/26/21 08:49 Pulse 112 H 10/26/21 08:49 Resp 18 10/26/21 08:49 BP 144/06 10/26/21 08:49 Pulse Ox 94 10/26/21 05:15 10/25/21 10/26/21 10/26/21 22:59 06:59 14:59 Intake Total 300 / 1230 288 / 1518 Balance 300 / 1030 288 / 1318 Physical Exam Narrative: EXAM NARRATIVE: Constitutional: Awake, comfortable HEENT: Wet mucosa, no jvp, non icteric Lungs: Bilaterally clear without discernible wheeze, rales in all lung zones CVS: S1 S2, no murmurs Abdo: Soft, BS ok Ext 4: Minimal edema, peripheral perfusion with no cyanosis Neurological: Grossly non-focal Urinary Catheter Management: Mckeon: Cath Placed During This Visit: yes Reason for Continuing Indwelling Catheter: Accurate Measurement of Urinary Output in Critically Ill Patients Urinary Catheter Date of Insertion: 10/22/21 Urinary Catheter Time of Insertion: 02:11 Data : 10/26/21 02:58 10/26/21 02:58 Micro: Microbiology 10/23/21 18:10 Gram Stain - Final Sputum - Endotracheal Tube Aspirate Sputum Culture - Final 10/22/21 17:15 Mycobacterial Smear - Preliminary Sputum - Endotracheal Wash 10/22/21 13:30 Fungal Smear - Preliminary Sputum - Endotracheal Tube Aspirate Mycobacterial Smear - Preliminary 10/22/21 17:15 Gram Stain - Final Lung Right Middle Lobe Bronchoalveolar Lavage Culture - Final A&P Assessment and plan (1) ESRD (end stage renal disease) on dialysis: Status: Acute Plan 1. ESRD Seen and examined on hemodialysis today, plan next dialysis treatment on Friday, will evaluate over the weekend. Dose medication for GFR less than 15 on dialysis. 2. Sepsis History of HIV, pending Mycobacterium/AFB smear, right-sided pneumonia, on combination antibiotics. Possible reinitiation of HAART in due course. 3. PEA arrest Plan for LHC once MTB is ruled out, on metoprolol, management per cardiology 4. Hemodynamics Remain nicely stable Possible downgrade to medical floor when bed available. Narayan Hill MD Nephrology [phone] Patient seen and examined via telemedicine, with the assistance of the bedside RN > 25 min spent in evaluation and mgmt of patient Attestations Medical Necessity Statement*: Mgmt of renal failure Coding Level of Care Code Acute Manager Assessment for [facility] Diagnoses ESRD (end stage renal disease) on dialysis N18.6; Z99.2
[2021-10-26 14:22] LABS: ANCA Screen NEGATIVE (NEGATIVE)
[2021-10-26] MEDS: ipratropium-albuterol 3 mL Neb INHALATION ×2 (14:41→21:24)
[2021-10-26 15:27] LABS: P. Jirovecii DNA QL PCR NOT DETECTED
--- NOTE | 2021-10-26 15:46 | PC.NURSE ---
Addendum entered by Gaby Loya LPN 10/26/21 18:37: Entered erroneously on wrong patient. Original Note: Patient back from MRI
--- NOTE | 2021-10-26 16:37 | PC.NURSE ---
Report given to JOON Griffin, CSU via telephone.
--- NOTE | 2021-10-26 17:30 | PC.NURSE ---
Pt transferred to [place] [id number], via W/C. All belongings transferred with pt, gathered by oralia Smallwood.
--- NOTE | 2021-10-26 17:33 | PC.NURSE ---
Shift Note; Pt rested in bed all but 2 hours which he spent in recliner. VSS. Afebrile. He received dialysis today, 2500ml removed. He urinated twice and had 1 loose BM today. Cristina Selin remained at bedside throughout shift. Rehan, person to notify (Selin's mother) demanded to speak to circular shear operator today. Consult for dialysis diet entered. Frequent safety and comfort rounds continue. Orders and/or nursing care completed as indicated. Patient monitored for response to intervention and treatment(s). Education provided includes Dialysis, dialysis diet. Patient and/or premium service representative verbalized understanding. Will continue to monitor.
--- NOTE | 2021-10-26 17:46 | PM.PN ---
Subjective Subjective: Interval history: Remains off pressors. Saturating well today on room air. 97%. No new complaints. Denies any chest pain dyspnea or palpitations. Heart rate between 100-1 20 this morning. Still pending most microbiological data. Medications: Reviewed: Yes Medication Review Details: Current Medications Acetaminophen (Acetaminophen 325 Mg Tablet) 650 mg PO Q6H PRN PRN Reason: Mild/Mod Pain Or Temp >/= 101 Albuterol/Ipratropium (Ipratropium-Albuterol 3 Ml Neb) 3 ml INHALATION Q6H.RESPIRATORY MIGUEL Last Admin: 10/25/21 03:02 Dose: Not Given Documented by: Bisacodyl (Bisacodyl 5 Mg Tablet) 10 mg PO DAILY MIGUEL; Protocol Last Admin: 10/24/21 09:36 Dose: 10 mg Documented by: Citalopram Hydrobromide (Citalopram 20 Mg Tablet) 20 mg PO DAILY MIGUEL Last Admin: 10/24/21 09:36 Dose: 20 mg Documented by: Ergocalciferol (Ergocalciferol (Vitamin D2) 50,000 Unit Capsule) 50,000 unit PO Q7D MIGUEL Last Admin: 10/24/21 09:37 Dose: 50,000 unit Documented by: Guaifenesin/Codeine Phosphate (Guaifenesin-Codeine Udc 10 Ml) 5 ml PO Q6H PRN PRN Reason: COUGH Piperacillin Sod/Tazobactam (Sod 3.375 gm/ Sodium Chloride) 50 mls @ 100 mls/hr IV Q12H MIGUEL; Protocol Last Infusion: 10/24/21 22:53 Dose: Infused Documented by: Norepinephrine Bitartrate 4 mg (/ Dextrose) 254 mls @ 0 mls/hr IV .Q0M MIGUEL; Protocol Last Titration: 10/24/21 22:51 Dose: 0 mcg/min, 0 mls/hr Documented by: Fentanyl 2,500 mcg/ Sodium (Chloride) 250 mls @ 0 mls/hr IV .Q0M MIGUEL; Protocol Last Titration: 10/24/21 03:45 Dose: 0 mcg/hr, 0 mls/hr Documented by: Albumin Human (Albumin) 12.5 gm in 50 mls @ 60 mls/hr IV PRN PRN PRN Reason: Hypotension and/or symptomatic Vancomycin HCl 1,000 mg/ (Sodium Chloride) 250 mls @ 250 mls/hr IV MoWeFr [facility]; Protocol Last Infusion: 10/24/21 02:04 Dose: Infused Documented by: dexmedeTOMIDine 0.9 % NaCL (Precedex) 400 mcg in 100 mls @ 0 mls/hr IV .Q0M [facility]; Protocol Last Admin: 10/24/21 00:29 Dose: 0.1 mcg/kg/hr, 1.64 mls/hr Documented by: Lanolin (Lanolin Oint 7 Gm) 1 applic TOPICAL PRN PRN PRN Reason: DRYNESS Last Admin: 10/24/21 14:25 Dose: 1 appful Documented by: Levofloxacin (Levofloxacin 500 Mg Tablet) 500 mg OG-TUBE Q48H [facility]; Protocol Last Admin: 10/24/21 09:36 Dose: 500 mg Documented by: Ondansetron HCl (Ondansetron 2 Mg/Ml Sdv 2 Ml) 4 mg IVP Q8H PRN PRN Reason: vomiting, or N/V if npo Pantoprazole Sodium (Pantoprazole 40 Mg Sdv) 40 mg IVP Q12H [facility] Last Admin: 10/25/21 02:54 Dose: 40 mg Documented by: Vitals/I&O/Wt Last Vital Signs Temp 98 F 10/26/21 14:01 Pulse 102 H 10/26/21 17:00 Resp 21 H 10/26/21 17:00 BP 136/90 10/26/21 17:00 Pulse Ox 97 10/26/21 17:00 10/26/21 10/26/21 10/26/21 06:59 14:59 22:59 Intake Total 288 / 1518 803.125 / 803.125 Output Total 5850 / 5850 Balance 288 / 1318 -5046.875 / -5046.875 Weight last 48 hrs Weight 77.2 kg Physical Exam Narrative: EXAM NARRATIVE: GEN: Awake, alert and oriented, no acute distress CVS: S1S2 N RS: CTA B/L Abd: Soft, nt/nd , bs+ HEALTH INSURANCE AGENT: no focal neuro deficits Urinary Catheter Management: Mckeon: Cath Placed During This Visit: yes Reason for Continuing Indwelling Catheter: Accurate Measurement of Urinary Output in Critically Ill Patients Urinary Catheter Date of Insertion: 10/22/21 Urinary Catheter Time of Insertion: 02:11 Data : 10/26/21 02:58 10/26/21 02:58 Micro: Microbiology 10/23/21 18:10 Gram Stain - Final Sputum - Endotracheal Tube Aspirate Sputum Culture - Final 10/22/21 17:15 Mycobacterial Smear - Preliminary Sputum - Endotracheal Wash 10/22/21 13:30 Fungal Smear - Preliminary Sputum - Endotracheal Tube Aspirate Mycobacterial Smear - Preliminary 10/22/21 17:15 Gram Stain - Final Lung Right Middle Lobe Bronchoalveolar Lavage Culture - Final A&P Assessment and plan (1) Sepsis: Status: Acute Qualifiers: Sepsis type: sepsis due to unspecified organism Sepsis acute organ dysfunction status: with acute organ dysfunction Severe sepsis acute organ dysfunction type: acute respiratory failure Acute respiratory failure type: with hypoxia Severe sepsis shock status: with septic shock Qualified Code(s): A41.9 - Sepsis, unspecified organism; R65.21 - Severe sepsis with septic shock; J96.01 - Acute respiratory failure with hypoxia (2) Pneumonia: Status: Acute Qualifiers: Pneumonia type: due to unspecified organism Laterality: right Lung location: lower lobe of lung Qualified Code(s): J18.9 - Pneumonia, unspecified organism (3) Hemoptysis: Status: Acute (4) Congestive heart disease: Status: Acute Qualifiers: Heart failure type: combined systolic and diastolic Heart failure chronicity: acute on chronic Qualified Code(s): I50.43 - Acute on chronic combined systolic (congestive) and diastolic (congestive) heart failure (5) HIV (human immunodeficiency virus infection): Status: Acute Qualifiers: HIV symptom status: symptomatic Qualified Code(s): B20 - Human immunodeficiency virus [HIV] disease (6) ESRD (end stage renal disease) on dialysis: Status: Acute (7) Sleep apnea: Status: Acute Qualifiers: Sleep apnea type: unspecified type Qualified Code(s): G47.30 - Sleep apnea, unspecified (8) Cardiac arrest: Status: Acute Plan Vivek Harden is a 36-year-old male with past medical history of , HIV, on HAART ,HFrEF,? end-stage renal disease dialysis dependent Friday, history of testicular cancer HENRY currently , was admitted with chief complaint of worsening shortness of breath, hemoptysis going on over past several months, variously attributed to CHF, recurrent pneumonias, pleural effusions, multiple hospital admissions here and at OSH in [place]. Currently CTA of his chest is without any evidence of PE, it does show a dense consolidation in the right middle and upper lobes. Unknown LAST VL; CD4 count : 36 #Right-sided dense consolidation/pneumonia along with acute respiratory failure requiring intubation and mechanical ventilation overnight. #PEA, status post cardiac arrest on 10/22/2021 at 3 AM, received CPR for approximately 10 minutes. -Currently on empiric antibiotic coverage with piperacillin tazobactam and levofloxacin day 5 today # sputum Gram stain and culture : resp leoncio on gram stain thus far MRSA PCR from nares negative, d/c vancomycin 10/22-10/24 urine bacterial Ag : negative and Legionella antigens: not collected fungal cx: few C. glabrata from bronch wash, unlikely to be the cause of pneumonia in the absence of fungemia, more likely from oropharyngeal thrush, add nystatin Pending: mycobacterial/ AFB smear x 2 from endotrach aspirate; 1 smear negative, pending PCR Negative MTB AFB smear from bronch wash, pending PCR pending PJP PCR Serum and bronch AG/GM: pending Serum BDG : pending - appreciate bronchoscopy and pulm recommendations # extubated today, currently doing well on 3lpm supplemental 02 # PEA arrest; h/o cardiomyopathy of uncertain etiology -Troponin elevated range 140s, past check ~119 from May, delta <10, no pericardial effusion on echo - EF 22%, down from 30-35% in 05/2021 - cardiology consult appreciated - plan for [facility] once MTB ruled out -add metoprolol 25mg po BID for sinus tachycardia 120/min # HIV : Hold HAART for now while inpatient. Will decide further treatment base on VL and Cd4 count. If signs of virological failure, will need to be transitioned from 2 drug to 3 drug regimen. Genotype testing not available at this time. Received callback from HIV clinic in [place]- patient has not followed since jun 2020, No VL or genotype on record there; last know CD4 count 36 at [facility] ??compliance with HIV regimen?? # CKD on HD: Appreciate renal recommendations. MAURA screen negative. No kidney biopsy performed in the past per patient. Plan for today: Move out of ICU to CSU. Still pending most microbiological data as above. Continue IV antibiotics for treatment of pneumonia. Plan for 7 to 10-day course of IV antibiotics. Cardiac cath once MTB ruled out. Dialysis today. Attestations Medical Necessity Statement*: Continue IV antibiotics for treatment of pneumonia. Cardiac cath once MTB ruled out. Dialysis today. Coding Level of Care Code Acute Script Developer for [facility] Diagnoses Sepsis A41.9; R65.21; J96.01 Sepsis type: sepsis due to unspecified organism Sepsis acute organ dysfunction status: with acute organ dysfunction Severe sepsis acute organ dysfunction type: acute respiratory failure Acute respiratory failure type: with hypoxia Severe sepsis shock status: with septic shock Pneumonia J18.9 Pneumonia type: due to unspecified organism Laterality: right Lung location: lower lobe of lung Hemoptysis R04.2 Congestive heart disease I50.43 Heart failure type: combined systolic and diastolic Heart failure chronicity: acute on chronic HIV (human immunodeficiency virus infection) B20 HIV symptom status: symptomatic ESRD (end stage renal disease) on dialysis N18.6; Z99.2 Sleep apnea G47.30 Sleep apnea type: unspecified type Cardiac arrest I46.9
--- NOTE | 2021-10-26 18:33 | PC.NURSE ---
Report received from ICU nurse, JOON Howard. Patient has been oriented to room and call mcneill use. Patient appears to be alert and oriented. Is able to answer orientation questions. Patient has been educated regarding safety concerns. Patient says he will not get up with out calling the nurse. VS are stable. Nurse will continue to monitor.
[2021-10-27] VITALS (18 sets, daily range): BP systolic 111–149; BP diastolic 76–99; PULSE 100–116; RESP 12–24; TEMP 35.8–36.8; O2SAT 89–98
[2021-10-27] MEDS: ipratropium-albuterol 3 mL Neb INHALATION ×4 (03:06→20:19)
[2021-10-27 06:35] LABS: Basophils % 0.9 %; Eosinophils % 1.2 %; Hematocrit 34.3 % (42.0-52.0); Hemoglobin 10.4 g/dL (11.7-16.6); Lymphocytes # 0.4 10^3/uL (0.8-4.8); Lymphocytes % 12.6 %; Mean Corpuscular HGB Conc 30.3 g/dL (30.0-36.0); Mean Corpuscular Hemoglobin 28.6 pg (28.0-34.0); Mean Corpuscular Volume 94.2 fl (80-94); Monocytes # 0.4 10^3/uL (0.2-0.9); Monocytes % 11.3 %; Neutrophils # 2.34 10^3/uL (1.8-7.7); Neutrophils % 71.9 %; Nucleated Red Blood Cells # 0.1 /100WBC; Nucleated Red Blood Cells % 1.8 %; Platelet Count 115 10^3/cmm (130-400); Red Blood Count 3.64 10^6/uL (4.1-5.3); Red Cell Distribution Width 18.5 % (12.1-15.1); White Blood Count 3.3 10^3/uL (4.0-10.0)
[2021-10-27 06:51] LABS: Alanine Aminotransferase 33 U/L (0-41); Albumin Level 3.4 g/dL (3.5-5.2); Alkaline Phosphatase 70 IU/L (40-130); Anion Gap 17.8 (5-19); Aspartate Amino Transferase 33 U/L (0-40); Blood Urea Nitrogen 26 mg/dL (6-20); Calcium 8.3 mg/dL (8.5-10.5); Carbon Dioxide 27 mmol/L (22-29); Chloride 99 mmol/L (98-107); Globulin 3.9 g/dL (1.3-4.6); Glomerular Filtration Rate 13.7 mL/min (90-130); Glucose 90 mg/dL (65-115); Magnesium 2.5 mg/dL (1.7-2.3); Osmolality Calculated 294 mOsm/kg (285-295); Phosphorus 4.5 mg/dL (2.5-4.5); Potassium 3.8 mmol/L (3.5-5.1); Sodium 140 mmol/L (136-145); Total Bilirubin 0.5 mg/dL (0.15-1.2); Total Protein 7.3 g/dL (6.6-8.7)
--- NOTE | 2021-10-27 06:57 | PC.NURSE ---
HEART RATE 109
--- NOTE | 2021-10-27 07:48 | P.PN_ITS ---
Subjective Subjective: Interval history: No new issues today, he feels ok, no pain, minimal shortness of breath, no uremic Sx. Dialysis went well yesterday Medications: Reviewed: Yes Medication Review Details: Current Medications Acetaminophen (Acetaminophen 325 Mg Tablet) 650 mg PO Q6H PRN PRN Reason: Mild/Mod Pain Or Temp >/= 101 Albuterol/Ipratropium (Ipratropium-Albuterol 3 Ml Neb) 3 ml INHALATION Q6H.RESPIRATORY MIGUEL Last Admin: 10/25/21 03:02 Dose: Not Given Documented by: Bisacodyl (Bisacodyl 5 Mg Tablet) 10 mg PO DAILY [facility]; Protocol Last Admin: 10/24/21 09:36 Dose: 10 mg Documented by: Citalopram Hydrobromide (Citalopram 20 Mg Tablet) 20 mg PO DAILY [facility] Last Admin: 10/24/21 09:36 Dose: 20 mg Documented by: Ergocalciferol (Ergocalciferol (Vitamin D2) 50,000 Unit Capsule) 50,000 unit PO Q7D [facility] Last Admin: 10/24/21 09:37 Dose: 50,000 unit Documented by: Guaifenesin/Codeine Phosphate (Guaifenesin-Codeine Udc 10 Ml) 5 ml PO Q6H PRN PRN Reason: COUGH Piperacillin Sod/Tazobactam (Sod 3.375 gm/ Sodium Chloride) 50 mls @ 100 mls/hr IV Q12H [facility]; Protocol Last Infusion: 10/24/21 22:53 Dose: Infused Documented by: Norepinephrine Bitartrate 4 mg (/ Dextrose) 254 mls @ 0 mls/hr IV .Q0M [facility]; Protocol Last Titration: 10/24/21 22:51 Dose: 0 mcg/min, 0 mls/hr Documented by: Fentanyl 2,500 mcg/ Sodium (Chloride) 250 mls @ 0 mls/hr IV .Q0M [facility]; Protocol Last Titration: 10/24/21 03:45 Dose: 0 mcg/hr, 0 mls/hr Documented by: Albumin Human (Albumin) 12.5 gm in 50 mls @ 60 mls/hr IV PRN PRN PRN Reason: Hypotension and/or symptomatic Vancomycin HCl 1,000 mg/ (Sodium Chloride) 250 mls @ 250 mls/hr IV MoWeFr [facility]; Protocol Last Infusion: 10/24/21 02:04 Dose: Infused Documented by: dexmedeTOMIDine 0.9 % NaCL (Precedex) 400 mcg in 100 mls @ 0 mls/hr IV .Q0M [facility]; Protocol Last Admin: 10/24/21 00:29 Dose: 0.1 mcg/kg/hr, 1.64 mls/hr Documented by: Lanolin (Lanolin Oint 7 Gm) 1 applic TOPICAL PRN PRN PRN Reason: DRYNESS Last Admin: 10/24/21 14:25 Dose: 1 appful Documented by: Levofloxacin (Levofloxacin 500 Mg Tablet) 500 mg OG-TUBE Q48H [facility]; Protocol Last Admin: 10/24/21 09:36 Dose: 500 mg Documented by: Ondansetron HCl (Ondansetron 2 Mg/Ml Sdv 2 Ml) 4 mg IVP Q8H PRN PRN Reason: vomiting, or N/V if npo Pantoprazole Sodium (Pantoprazole 40 Mg Sdv) 40 mg IVP Q12H [facility] Last Admin: 10/25/21 02:54 Dose: 40 mg Documented by: Vitals/I&O/Wt Last Vital Signs Temp 98.1 F 10/27/21 04:00 Pulse 116 H 10/27/21 06:00 Resp 18 10/27/21 04:00 BP 149/88 10/27/21 06:54 Pulse Ox 89 L 10/27/21 06:54 10/26/21 10/27/21 10/27/21 22:59 06:59 14:59 Intake Total 414.542 / 1217.667 238.333 / 1456.000 Balance 414.542 / -4632.333 238.333 / -4394.000 Weight last 48 hrs Weight 77.2 kg Physical Exam Narrative: EXAM NARRATIVE: Constitutional: Awake, comfortable HEENT: Wet mucosa, no jvp, non icteric Lungs: Bilaterally clear without discernible wheeze, rales in all lung zones CVS: S1 S2, no murmurs Abdo: Soft, BS ok Ext 4: Minimal edema, peripheral perfusion with no cyanosis Neurological: Grossly non-focal Urinary Catheter Management: Mckeon: Cath Placed During This Visit: yes Reason for Continuing Indwelling Catheter: Accurate Measurement of Urinary Output in Critically Ill Patients Urinary Catheter Date of Insertion: 10/22/21 Urinary Catheter Time of Insertion: 02:11 Data : 10/27/21 06:17 10/27/21 06:17 Micro: Microbiology 10/21/21 20:59 Blood Culture - Final Blood NO GROWTH AFTER 5 DAYS 10/21/21 20:50 Blood Culture - Final Blood NO GROWTH AFTER 5 DAYS 10/23/21 18:10 Gram Stain - Final Sputum - Endotracheal Tube Aspirate Sputum Culture - Final A&P Assessment and plan (1) ESRD (end stage renal disease) on dialysis: Status: Acute Plan 1. ESRD Plan next dialysis treatment on Friday Dose medication for GFR less than 15 on dialysis. 2. Sepsis History of HIV, pending Mycobacterium/AFB smear, right-sided pneumonia, on combination antibiotics. Possible reinitiation of HAART in due course. 3. PEA arrest Plan for LHC once MTB is ruled out, on metoprolol, management per cardiology 4. 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
--- NOTE | 2021-10-27 08:29 | PC.SOCIAL ---
IMM update IMM updated with patient. Verbalized an understanding. Initialled, dated, timed, and placed in chart.
[2021-10-27] MEDS: metoprolol tartrate 25 mg Tablet PO (09:26)
[2021-10-27] MEDS: citalopram 20 mg Tablet PO (09:26)
[2021-10-27] MEDS: pantoprazole DR 40 mg Tablet PO ×2 (09:26→18:15)
[2021-10-27] MEDS: nystatin 100,000 unit/mL UDC 5 mL 500000 UNIT PO ×4 (09:26→20:26)
[2021-10-27 11:11] LABS: P. Jirovecii DNA QL PCR NOT DETECTED
[2021-10-27] MEDS: piperacillin-tazobactam 3.375 GM in sodium chloride 0.9% (plus) 50 ML IV ×2 (12:49→23:52)
--- NOTE | 2021-10-27 16:33 | PM.PN ---
Subjective Subjective: Interval history: Patient say he is feeling better awaiting TB test before angiogram Medications: Reviewed: Yes Medication Review Details: Current Medications Acetaminophen (Acetaminophen 325 Mg Tablet) 650 mg PO Q6H PRN PRN Reason: Mild/Mod Pain Or Temp >/= 101 Albuterol/Ipratropium (Ipratropium-Albuterol 3 Ml Neb) 3 ml INHALATION Q6H.RESPIRATORY MIGUEL Last Admin: 10/25/21 03:02 Dose: Not Given Documented by: Bisacodyl (Bisacodyl 5 Mg Tablet) 10 mg PO DAILY [facility]; Protocol Last Admin: 10/24/21 09:36 Dose: 10 mg Documented by: Citalopram Hydrobromide (Citalopram 20 Mg Tablet) 20 mg PO DAILY [facility] Last Admin: 10/24/21 09:36 Dose: 20 mg Documented by: Ergocalciferol (Ergocalciferol (Vitamin D2) 50,000 Unit Capsule) 50,000 unit PO Q7D [facility] Last Admin: 10/24/21 09:37 Dose: 50,000 unit Documented by: Guaifenesin/Codeine Phosphate (Guaifenesin-Codeine Udc 10 Ml) 5 ml PO Q6H PRN PRN Reason: COUGH Piperacillin Sod/Tazobactam (Sod 3.375 gm/ Sodium Chloride) 50 mls @ 100 mls/hr IV Q12H [facility]; Protocol Last Infusion: 10/24/21 22:53 Dose: Infused Documented by: Norepinephrine Bitartrate 4 mg (/ Dextrose) 254 mls @ 0 mls/hr IV .Q0M [facility]; Protocol Last Titration: 10/24/21 22:51 Dose: 0 mcg/min, 0 mls/hr Documented by: Fentanyl 2,500 mcg/ Sodium (Chloride) 250 mls @ 0 mls/hr IV .Q0M [facility]; Protocol Last Titration: 10/24/21 03:45 Dose: 0 mcg/hr, 0 mls/hr Documented by: Albumin Human (Albumin) 12.5 gm in 50 mls @ 60 mls/hr IV PRN PRN PRN Reason: Hypotension and/or symptomatic Vancomycin HCl 1,000 mg/ (Sodium Chloride) 250 mls @ 250 mls/hr IV MoWeFr [facility]; Protocol Last Infusion: 10/24/21 02:04 Dose: Infused Documented by: dexmedeTOMIDine 0.9 % NaCL (Precedex) 400 mcg in 100 mls @ 0 mls/hr IV .Q0M [facility]; Protocol Last Admin: 10/24/21 00:29 Dose: 0.1 mcg/kg/hr, 1.64 mls/hr Documented by: Lanolin (Lanolin Oint 7 Gm) 1 applic TOPICAL PRN PRN PRN Reason: DRYNESS Last Admin: 10/24/21 14:25 Dose: 1 appful Documented by: Levofloxacin (Levofloxacin 500 Mg Tablet) 500 mg OG-TUBE Q48H [facility]; Protocol Last Admin: 10/24/21 09:36 Dose: 500 mg Documented by: Ondansetron HCl (Ondansetron 2 Mg/Ml Sdv 2 Ml) 4 mg IVP Q8H PRN PRN Reason: vomiting, or N/V if npo Pantoprazole Sodium (Pantoprazole 40 Mg Sdv) 40 mg IVP Q12H [facility] Last Admin: 10/25/21 02:54 Dose: 40 mg Documented by: Vitals/I&O/Wt Last Vital Signs Temp 98.2 F 10/27/21 15:58 Pulse 112 H 10/27/21 15:58 Resp 23 H 10/27/21 15:58 BP 120/90 10/27/21 15:58 Pulse Ox 98 10/27/21 15:58 10/27/21 10/27/21 10/27/21 06:59 14:59 22:59 Intake Total 238.333 / 1456.000 360 / 360 Balance 238.333 / -4394.000 360 / 360 Weight last 48 hrs Weight 170 lb 3.15 oz Physical Exam Chest: OTHER: GENERAL: Patient is alert, awake and oriented x3. NECK: No jugular vein distension. HEENT: No cyanosis. No icterus. No pallor. HEART: Regular S1 and S2. No murmur, rub or gallop. LUNGS: Clear to auscultate bilaterally. Urinary Catheter Management: Mckeon: Cath Placed During This Visit: yes Reason for Continuing Indwelling Catheter: Accurate Measurement of Urinary Output in Critically Ill Patients Urinary Catheter Date of Insertion: 10/22/21 Urinary Catheter Time of Insertion: 02:11 Data : 10/27/21 06:17 10/27/21 06:17 Micro: Microbiology 10/22/21 13:30 M. tuberculosis Complex (PCR) - Final Sputum - Endotracheal Tube Aspirate MTB Complex and Rifampin Resistance - Final 10/23/21 14:30 Mycobacterial Smear - Preliminary Sputum - Expectorated Sputum 10/23/21 07:35 M. tuberculosis Complex (PCR) - Final Sputum - Endotracheal Tube Aspirate MTB Complex and Rifampin Resistance - Final 10/22/21 17:15 M. tuberculosis Complex (PCR) - Final Sputum - Endotracheal Tube Aspirate MTB Complex and Rifampin Resistance - Final 10/21/21 20:59 Blood Culture - Final Blood NO GROWTH AFTER 5 DAYS 10/21/21 20:50 Blood Culture - Final Blood NO GROWTH AFTER 5 DAYS A&P Assessment and plan (1) Pneumonia: As per medicine Status: Acute Qualifiers: Pneumonia type: due to unspecified organism Laterality: right Lung location: lower lobe of lung Qualified Code(s): J18.9 - Pneumonia, unspecified organism (2) Cardiac arrest: History of PE arrest no EKG available Status: Acute (3) Congestive heart disease: Worsening of cardiomyopathy with severely depressed ejection fraction, continue optimal medical management plan to left heart cath once negative for AFB Status: Acute Qualifiers: Heart failure type: combined systolic and diastolic Heart failure chronicity: acute on chronic Qualified Code(s): I50.43 - Acute on chronic combined systolic (congestive) and diastolic (congestive) heart failure (4) ESRD (end stage renal disease) on dialysis: On dialysis continue Status: Acute (5) HIV (human immunodeficiency virus infection): As per medicine Status: Acute Qualifiers: HIV symptom status: symptomatic Qualified Code(s): B20 - Human immunodeficiency virus [HIV] disease Attestations Medical Necessity Statement*: Patient require continuation hospitalization for above defined Coding Level of Care Code Established Pt Acute Cardiology Clinical Nurse Specialist for [facility] Fwd Patient Type Established History Detailed Exam Detailed Medical Decision Making Moderate Complexity Diagnoses Pneumonia J18.9 Pneumonia type: due to unspecified organism Laterality: right Lung location: lower lobe of lung Cardiac arrest I46.9 Congestive heart disease I50.43 Heart failure type: combined systolic and diastolic Heart failure chronicity: acute on chronic ESRD (end stage renal disease) on dialysis N18.6; Z99.2 HIV (human immunodeficiency virus infection) B20 HIV symptom status: symptomatic
--- NOTE | 2021-10-27 18:03 | P.PN_ITS ---
Subjective Subjective: Interval history: No new complaints today. Continues to be tachycardic heart rate 112/min. Afebrile. Saturating 98% on room air. No acute overnight events. MTB PCR x3 r eturned negative as did AFB smear. Patient will be taken of MTB precautions. PGP PCR additionally negative. Possible left heart cath tomorrow. 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 tuberculosis Complex (PCR) - Final Sputum - Endotracheal Tube Aspirate MTB Complex and Rifampin Resistance - Final 10/23/21 14:30 Mycobacterial Smear - Preliminary Sputum - Expectorated Sputum 10/23/21 07:35 M. tuberculosis Complex (PCR) - Final Sputum - Endotracheal Tube Aspirate MTB Complex and Rifampin Resistance - Final 10/22/21 17:15 M. tuberculosis Complex (PCR) - Final Sputum - Endotracheal Tube Aspirate MTB Complex and Rifampin Resistance - Final 10/21/21 20:59 Blood Culture - Final Blood NO GROWTH AFTER 5 DAYS 10/21/21 20:50 Blood Culture - Final Blood NO GROWTH AFTER 5 DAYS A&P Assessment and plan (1) Sepsis: Status: Acute Qualifiers: Sepsis type: sepsis due to unspecified organism Sepsis acute organ dysfunction status: with acute organ dysfunction Severe sepsis acute organ dysfunction type: acute respiratory failure Acute respiratory failure type: with hypoxia Severe sepsis shock status: with septic shock Qualified Code(s): A41.9 - Sepsis, unspecified organism; R65.21 - Severe sepsis with septic shock; J96.01 - Acute respiratory failure with hypoxia (2) Pneumonia: Status: Acute Qualifiers: Pneumonia type: due to unspecified organism Laterality: right Lung location: lower lobe of lung Qualified Code(s): J18.9 - Pneumonia, unspecified organism (3) Hemoptysis: Status: Acute (4) Congestive heart disease: Status: Acute Qualifiers: Heart failure type: combined systolic and diastolic Heart failure chronicity: acute on chronic Qualified Code(s): I50.43 - Acute on chronic combined systolic (congestive) and diastolic (congestive) heart failure (5) HIV (human immunodeficiency virus infection): Status: Acute Qualifiers: HIV symptom status: symptomatic Qualified Code(s): B20 - Human immunodeficiency virus [HIV] disease (6) ESRD (end stage renal disease) on dialysis: Status: Acute (7) Sleep apnea: Status: Acute Qualifiers: Sleep apnea type: unspecified type Qualified Code(s): G47.30 - Sleep apnea, unspecified (8) Cardiac arrest: Status: Acute Plan Vivek Harden is a 36-year-old male with past medical history of , HIV, on HAART ,HFrEF,? end-stage renal disease dialysis dependent Friday, history of testicular cancer HENRY currently , was admitted with chief complaint of worsening shortness of breath, hemoptysis going on over past several months, variously attributed to CHF, recurrent pneumonias, pleural effusions, multiple hospital admissions here and at OSH in [place]. Currently CTA of his chest is without any evidence of PE, it does show a dense consolidation in the right middle and upper lobes. Unknown LAST VL; CD4 count : 36 #Right-sided dense consolidation/pneumonia along with acute respiratory failure requiring intubation and mechanical ventilation overnight. #PEA, status post cardiac arrest on 10/22/2021 at 3 AM, received CPR for approximately 10 minutes. -Currently on empiric antibiotic coverage with piperacillin tazobactam and levofloxacin day 5 today # sputum Gram stain and culture : resp leoncio on gram stain thus far MRSA PCR from nares negative, d/c vancomycin 10/22-10/24 urine bacterial Ag : negative and Legionella antigens: not collected fungal cx: few C. glabrata from bronch wash, unlikely to be the cause of pneumonia in the absence of fungemia, more likely from oropharyngeal thrush, add nystatin mycobacterial/ AFB smear x 3 negative, and, MTB PCR negative x3 from endotracheal aspirate Tuberculosis has been ruled out based on these above results Negative PJP PCR Serum and bronch AG/GM: pending Serum BDG : pending, however with a negative pneumocystis PCR can exclude pneumocystis pneumonia - appreciate bronchoscopy and pulm recommendations # extubated today, currently doing well on 3lpm supplemental 02 # PEA arrest; h/o cardiomyopathy of uncertain etiology -Troponin elevated range 140s, past check ~119 from May, delta <10, no pericardial effusion on echo - EF 22%, down from 30-35% in 05/2021 - cardiology consult appreciated - plan for LHC, likely tomorrow now that to be ruled out. -add metoprolol 25mg po BID for sinus tachycardia 120/min # HIV : Hold HAART for now while inpatient. Will decide further treatment base on VL and Cd4 count. If signs of virological failure, will need to be transitioned from 2 drug to 3 drug regimen. Genotype testing not available at this time. ??compliance with HIV regimen?? # CKD on HD: Appreciate renal recommendations. MAURA screen negative. No kidney biopsy performed in the past per patient. 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 [facility] Fw Diagnoses Sepsis A41.9; R65.21; J96.01 Sepsis type: sepsis due to unspecified organism Sepsis acute organ dysfunction status: with acute organ dysfunction Severe sepsis acute organ dysfunction type: acute respiratory failure Acute respiratory failure type: with hypoxia Severe sepsis shock status: with septic shock Pneumonia J18.9 Pneumonia type: due to unspecified organism Laterality: right Lung location: lower lobe of lung Hemoptysis R04.2 Congestive heart disease I50.43 Heart failure type: combined systolic and diastolic Heart failure chronicity: acute on chronic HIV (human immunodeficiency virus infection) B20 HIV symptom status: symptomatic ESRD (end stage renal disease) on dialysis N18.6; Z99.2 Sleep apnea G47.30 Sleep apnea type: unspecified type Cardiac arrest I46.9
[2021-10-27] MEDS: metoprolol tartrate 50 mg Tablet PO (20:26)
--- NOTE | 2021-10-27 20:38 | PC.NURSE ---
Pt Home Medications Removed patient home medications out of ICU Pyxis, meds taken to CSU by JOON Howard.
[2021-10-28] VITALS (19 sets, daily range): BP systolic 93–150; BP diastolic 60–92; PULSE 91–107; RESP 0–28; TEMP 36.3–36.7; O2SAT 90–99
--- NOTE | 2021-10-28 00:58 | PC.NURSE ---
Dr. Lilly ordered patient to be NPO at 7 am and possible heart cath around 12:30 pm.
--- NOTE | 2021-10-28 05:40 | PC.NURSE ---
Patient educated on NPO at 7 am status. Patient offered food and beverage at this time. Patient stated, nah, I'm good. Patient educated that he will not be able to eat from 7 am until procedure time around 12:30 pm. Patient verbalized understanding.
[2021-10-28 05:56] LABS: Basophils % 0.6 %; Eosinophils # 0.1 10^3/uL (0.0-0.8); Eosinophils % 2.8 %; Hemoglobin 10.7 g/dL (11.7-16.6); Lymphocytes # 0.5 10^3/uL (0.8-4.8); Lymphocytes % 14.2 %; Mean Corpuscular HGB Conc 30.6 g/dL (30.0-36.0); Mean Corpuscular Hemoglobin 28.7 pg (28.0-34.0); Mean Corpuscular Volume 93.8 fl (80-94); Mean Platelet Volume 11.8 fL (7.4-10.4); Monocytes # 0.4 10^3/uL (0.2-0.9); Neutrophils # 2.18 10^3/uL (1.8-7.7); Neutrophils % 67.5 %; Nucleated Red Blood Cells # 0.1 /100WBC; Nucleated Red Blood Cells % 1.5 %; Platelet Count 114 10^3/cmm (130-400); Red Blood Count 3.73 10^6/uL (4.1-5.3); Red Cell Distribution Width 18.6 % (12.1-15.1); White Blood Count 3.2 10^3/uL (4.0-10.0)
[2021-10-28 06:38] LABS: Alanine Aminotransferase 30 U/L (0-41); Albumin Level 3.4 g/dL (3.5-5.2); Alkaline Phosphatase 59 IU/L (40-130); Anion Gap 18.9 (5-19); Aspartate Amino Transferase 26 U/L (0-40); Blood Urea Nitrogen 33 mg/dL (6-20); Calcium 8.3 mg/dL (8.5-10.5); Carbon Dioxide 25 mmol/L (22-29); Chloride 100 mmol/L (98-107); Globulin 3.9 g/dL (1.3-4.6); Glomerular Filtration Rate 9.9 mL/min (90-130); Glucose 88 mg/dL (65-115); Magnesium 2.7 mg/dL (1.7-2.3); Osmolality Calculated 297 mOsm/kg (285-295); Phosphorus 5.8 mg/dL (2.5-4.5); Potassium 3.9 mmol/L (3.5-5.1); Sodium 140 mmol/L (136-145); Total Bilirubin 0.5 mg/dL (0.15-1.2); Total Protein 7.3 g/dL (6.6-8.7)
[2021-10-28] MEDS: metoprolol tartrate 50 mg Tablet PO ×2 (08:20→19:45)
[2021-10-28] MEDS: levoFLOXacin 500 mg Tablet OG-TUBE (08:20)
[2021-10-28] MEDS: pantoprazole DR 40 mg Tablet PO ×2 (08:20→18:02)
[2021-10-28] MEDS: citalopram 20 mg Tablet PO (08:20)
[2021-10-28] MEDS: ipratropium-albuterol 3 mL Neb INHALATION ×2 (08:43→19:55)
[2021-10-28 08:48] LABS: HIV RNA (CPY/ML) 5.17 (NOT DETECTED); HIV RNA LOG 147000 copies/mL (NOT DETECTED)
[2021-10-28] MEDS: ondansetron 2 mg/ML SDV 2 mL 4 MG IVP (09:27)
--- NOTE | 2021-10-28 11:49 | XACV_ITS ---
Exam Room: [facility] [place] Ht: 173 cm Wt: 77 kg BSA: 1.94 m2 Gender: Male : 1985 Exam Priority: Routine Procedure(s): Procedure Description: Diagnostic procedure Procedure Description: Coronary Angiography Diagnostic Cath Status: Urgent Diagnostic Findings * No disease noted in the Left Main, Left Anterior Descending, Right, or Circumflex coronary arteries. * Coronary angiography shows right dominance. Conclusions 1. No disease noted in the Left Main, Left Anterior Descending, Right, or Circumflex coronary arteries. Recommendations * Continue current medical management and risk factor modification. Diagnostic RX Recommendation: medical therapy and/or counseling Pressures Phase:Rest AO : 93 / 70 ( 82 ) @ 10:54:00 AM Clinical Evaluation EBL: 5mL-10mL Procedural Details Procedure Consent Obtained. Pre-Procedure Time Out. Identified patient by full name and date of as verbalized by the patient/guarantor. Does the consent match the physician's order: Yes. Accurate & Complete Informed Consent: Yes. Inpatient/Outpatient History & Physical on Chart: Yes. If H&P is completed, is and addenduem needed: No. Visualize and Verify Site with Patient/Guarantor: N/A. Relevant Radiology Images available: Yes. The risks, benefits, and alternatives of sedation and/or procedure were discussed by physician. The patient agrees to continue. Procedure started. [facility] Clinical Fraility Score: 5: Mildly Frail. 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 Chest Pain Symptom Assessment: Asymptomatic. Cardiovascular Instability: No. Correct patient, site and procedure confirmed by cath team. PERRLA. 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 Lungs clear x 5 lobes. IV Site on Arrival: 20 gauge in the right forearm. IV Fluids: 0.9% NaCl at KVO. 0 mL infused prior to label paster. Pre Procedural Pulses: bilateral dorsalis pedis was 3+. Pre Procedural Pulses: bilateral posterior tibial was 3+. Pre Procedural Pulses: bilateral radial was 3+. Oxygen started at 2liters/min via nasal canula. bilateral groins was prepped with chloroprep then draped in the usual sterile fashion. Physician notified. Baseline sample Acquired. HR: 99 BPM. Equipment: 6F - Femoral. Cardiac Cath Pack. ACIST Manifold Kit Model BT 2000. Heparinized Saline (2 units/mL), 1000 mL bag. Kit, Micropuncture. Patient's significant other, Nivia, avaliable by phone. Physician arrived. Elida Tapia RN circulating. Physician scrubbed in. Immediate Pre-Procedure Time Out. Correct Patient: Yes; Correct Procedure: Yes; Correct Site: Yes; Correct Patient Position: Yes; Correct Supplies: Yes; Dried Flammable Prep: Yes; Blood Products Available: N/A;. Lidocaine 1% infiltrated to the right groin. Arterial access obtained with micropuncture set. A 5 slovenian JL4 catheter in over wire. Multiple views taken of left coronary artery. Catheter removed over the standard wire. A 5 slovenian JR4 catheter in over wire. Multiple views taken of right coronary artery. Catheter removed over the standard wire. A Right femoral angiogram was performed to determine safe placement of closure device. A Angio-Seal VIP ([employer]) was successful obtaining hemostatsis at the Right Femoral artery insertion site. Angioseal placed without complications. No signs or symptoms of hematoma noted. Sterile dressing applied per usual sterile fashion. Lot #[id number]. Exp. 2022-07-29. Post Procedure: Pulses reassessed and unchanged. PERRLA. 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 No VTE prophylaxis required. Medication's Wasted: Heparin = 1000 Units. Total IV fluids: 18 mL. 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 Complications: none. Estimated blood loss: 5mL-10mL. Responsiveness - Normal response to verbal stimuli; alert and oriented, PERRLA. Airway - Unaffected, no intervention required; spontaneous ventilation. Circulation: W/N/L, pulses unchanged. Nausea/Vomiting: No. Procedure completed. Patient transferred by bed to 1st floor. Vital chart was stopped. Access Site Site: Right Femoral artery Sheath Size: 6 Fr Hemostasis Method: Angio-Seal VIP ([employer]) Hemostasis Success: Successful Procedure Medications Start: 12:42 PM Stop: 12:42 PM Medication: Versed 1 mg and Fentanyl 25 mcg Route: I.V. Start: 12:45 PM Stop: 12:45 PM Medication: Versed 1 mg and Fentanyl 25 mcg Amount: 1 Route: I.V. Start: 12:45 PM Stop: 12:45 PM Medication: Versed Amount: 1 mg Route: I.V. Start: 12:45 PM Stop: 12:45 PM Medication: Versed Amount: 1 mg Route: I.V. Start: 12:45 PM Stop: 12:45 PM Medication: Fentanyl Amount: 50 mcg Route: I.V. Start: 1:12 PM Stop: 1:12 PM Medication: Romazicon (flumazenil) Amount: 0.2 mg Route: I.V. I, the attending physician, have reviewed and verified all procedure medications. Yes, all medications given per verbal order Report Signatures Finalized by Shila Lilly MD on 11/12/2021 07:08 PM
[2021-10-28] MEDS: diphenhydrAMINE 50 mg Capsule PO (11:57)
--- NOTE | 2021-10-28 12:33 | PC.NURSE ---
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
--- NOTE | 2021-10-28 13:17 | W.PM.OPSUD ---
Surgery/Procedure H&P Update DATE OF PROCEDURE: October 28, 2021 DATE H&P PERFORMED: 10/24/21 PREOP DIAGNOSIS: Nonfunctioning hemodialysis catheter PRIMARY INDICATION FOR PROCEDURE: New onset heart failure cardiomyopathy PLANNED PROCEDURE: Coronary angiogram PATIENT REASSESSED PRIOR TO SEDATION, WITH NO CHANGE NOTED: Yes AIRWAY EVAL/ANESTHESIA PLAN: ASA II, Risks, benefits & alternatives of sedation and/or procedure discussed and Patient agrees to continue as planned ADDITIONAL INFORMATION: All risk benefit and already new worsening of renal failure major minor bleed urgent emergent bypass surgery vascular injury hematoma infection stroke was explained by myself. Patient would like to proceed with it
--- NOTE | 2021-10-28 13:21 | PM.PN ---
Subjective Subjective: Interval history: Status post coronary angiogram which showed normal coronaries. Likely cause for cardiomyopathy is nonischemic Medications: Reviewed: Yes Medication Review Details: Current Medications Acetaminophen (Acetaminophen 325 Mg Tablet) 650 mg PO Q6H PRN PRN Reason: Mild/Mod Pain Or Temp >/= 101 Albuterol/Ipratropium (Ipratropium-Albuterol 3 Ml Neb) 3 ml INHALATION Q6H.RESPIRATORY [facility]IGUEL Last Admin: 10/25/21 03:02 Dose: Not Given Documented by: Bisacodyl (Bisacodyl 5 Mg Tablet) 10 mg PO DAILY [facility]; Protocol Last Admin: 10/24/21 09:36 Dose: 10 mg Documented by: Citalopram Hydrobromide (Citalopram 20 Mg Tablet) 20 mg PO DAILY [facility] Last Admin: 10/24/21 09:36 Dose: 20 mg Documented by: Ergocalciferol (Ergocalciferol (Vitamin D2) 50,000 Unit Capsule) 50,000 unit PO Q7D [facility] Last Admin: 10/24/21 09:37 Dose: 50,000 unit Documented by: Guaifenesin/Codeine Phosphate (Guaifenesin-Codeine Udc 10 Ml) 5 ml PO Q6H PRN PRN Reason: COUGH Piperacillin Sod/Tazobactam (Sod 3.375 gm/ Sodium Chloride) 50 mls @ 100 mls/hr IV Q12H [facility]; Protocol Last Infusion: 10/24/21 22:53 Dose: Infused Documented by: Norepinephrine Bitartrate 4 mg (/ Dextrose) 254 mls @ 0 mls/hr IV .Q0M [facility]; Protocol Last Titration: 10/24/21 22:51 Dose: 0 mcg/min, 0 mls/hr Documented by: Fentanyl 2,500 mcg/ Sodium (Chloride) 250 mls @ 0 mls/hr IV .Q0M [facility]; Protocol Last Titration: 10/24/21 03:45 Dose: 0 mcg/hr, 0 mls/hr Documented by: Albumin Human (Albumin) 12.5 gm in 50 mls @ 60 mls/hr IV PRN PRN PRN Reason: Hypotension and/or symptomatic Vancomycin HCl 1,000 mg/ (Sodium Chloride) 250 mls @ 250 mls/hr IV MoWeFr [facility]; Protocol Last Infusion: 10/24/21 02:04 Dose: Infused Documented by: dexmedeTOMIDine 0.9 % NaCL (Precedex) 400 mcg in 100 mls @ 0 mls/hr IV .Q0M [facility]; Protocol Last Admin: 10/24/21 00:29 Dose: 0.1 mcg/kg/hr, 1.64 mls/hr Documented by: Lanolin (Lanolin Oint 7 Gm) 1 applic TOPICAL PRN PRN PRN Reason: DRYNESS Last Admin: 10/24/21 14:25 Dose: 1 appful Documented by: Levofloxacin (Levofloxacin 500 Mg Tablet) 500 mg OG-TUBE Q48H [facility]; Protocol Last Admin: 10/24/21 09:36 Dose: 500 mg Documented by: Ondansetron HCl (Ondansetron 2 Mg/Ml Sdv 2 Ml) 4 mg IVP Q8H PRN PRN Reason: vomiting, or N/V if npo Pantoprazole Sodium (Pantoprazole 40 Mg Sdv) 40 mg IVP Q12H [facility] Last Admin: 10/25/21 02:54 Dose: 40 mg Documented by: Vitals/I&O/Wt Last Vital Signs Temp 97.4 F L 10/28/21 11:29 Pulse 100 10/28/21 11:29 Resp 19 H 10/28/21 11:29 BP 113/76 10/28/21 11:29 Pulse Ox 96 10/28/21 11:29 10/27/21 10/28/21 10/28/21 22:59 06:59 14:59 Intake Total 50 / 410 350 / 760 118 / 118 Balance 50 / 410 350 / 760 118 / 118 Physical Exam Chest: OTHER: GENERAL: Patient is alert, awake and oriented x3. NECK: No jugular vein distension. HEENT: No cyanosis. No icterus. No pallor. HEART: Regular S1 and S2. No murmur, rub or gallop. LUNGS: Clear to auscultate bilaterally. ABDOMEN: Soft, nontender and nondistended. Positive bowel sounds. No guarding, rebound or tenderness. CENTRAL NERVOUS SYSTEM: Grossly nonfocal. EXTREMITIES: Lower extremities without edema bilaterally. Pulses palpable in the lower extremities, both dorsalis pedis and posterior tibial. Urinary Catheter Management: Mckeon: Cath Placed During This Visit: yes Reason for Continuing Indwelling Catheter: Accurate Measurement of Urinary Output in Critically Ill Patients Urinary Catheter Date of Insertion: 10/22/21 Urinary Catheter Time of Insertion: 02:11 Data : 10/28/21 04:58 10/28/21 04:58 Micro: Microbiology 10/22/21 13:30 M. tuberculosis Complex (PCR) - Final Sputum - Endotracheal Tube Aspirate MTB Complex and Rifampin Resistance - Final 10/23/21 14:30 Mycobacterial Smear - Preliminary Sputum - Expectorated Sputum 10/23/21 07:35 M. tuberculosis Complex (PCR) - Final Sputum - Endotracheal Tube Aspirate MTB Complex and Rifampin Resistance - Final 10/22/21 17:15 M. tuberculosis Complex (PCR) - Final Sputum - Endotracheal Tube Aspirate MTB Complex and Rifampin Resistance - Final A&P Assessment and plan (1) Pneumonia: As per medicine Status: Acute Qualifiers: Pneumonia type: due to unspecified organism Laterality: right Lung location: lower lobe of lung Qualified Code(s): J18.9 - Pneumonia, unspecified organism (2) Cardiac arrest: History of PE arrest no EKG available Status: Acute (3) Congestive heart disease: Nonischemic coronary arteries are normal, continue to optimize medicine for heart failure. Consider LifeVest before discharge. Repeat echo in 3 months on medicine for decision regarding ICD if ejection fraction does not improve Status: Acute Qualifiers: Heart failure type: combined systolic and diastolic Heart failure chronicity: acute on chronic Qualified Code(s): I50.43 - Acute on chronic combined systolic (congestive) and diastolic (congestive) heart failure (4) ESRD (end stage renal disease) on dialysis: On dialysis continue Status: Acute (5) HIV (human immunodeficiency virus infection): As per medicine Status: Acute Qualifiers: HIV symptom status: symptomatic Qualified Code(s): B20 - Human immunodeficiency virus [HIV] disease Attestations Medical Necessity Statement*: Patient require continuation hospitalization post angiogram Coding Level of Care Code Established Pt Acute Engineering Programmer for [facility] Patient Type Established History Detailed Exam Detailed Medical Decision Making Moderate Complexity Diagnoses Pneumonia J18.9 Pneumonia type: due to unspecified organism Laterality: right Lung location: lower lobe of lung Cardiac arrest I46.9 Congestive heart disease I50.43 Heart failure type: combined systolic and diastolic Heart failure chronicity: acute on chronic ESRD (end stage renal disease) on dialysis N18.6; Z99.2 HIV (human immunodeficiency virus infection) B20 HIV symptom status: symptomatic
--- NOTE | 2021-10-28 13:30 | PC.NURSE ---
return from gold leaf laborer pt is asleep, mildy sedated but arousable and opened eyes w/verbal and touch. Airway mgt monitored and applied 3 L/min NC post sedation. Right groin dressing is c/d/i. v/s and neurovascular checks monitored.
--- NOTE | 2021-10-28 13:53 | PC.OT ---
Procedure done date of 10/28. Patient unable to tolerate HEP training for UE strengthening.
[2021-10-28] MEDS: piperacillin-tazobactam 3.375 GM in sodium chloride 0.9% (plus) 50 ML IV ×2 (14:24→22:55)
--- NOTE | 2021-10-28 15:16 | P.PN_ITS ---
Subjective Subjective: Interval history: Status post cardiac cath today. No obstructive CAD reported. Walked with physical therapy today, felt a little winded after exertion, however now feels b charo after resting. Dialysis planned for tomorrow. Saturating 93% on room air. Afebrile. HIV viral load returned at 147,000. CD4 count is still pending. 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 tuberculosis Complex (PCR) - Final Sputum - Endotracheal Tube Aspirate MTB Complex and Rifampin Resistance - Final 10/23/21 14:30 Mycobacterial Smear - Preliminary Sputum - Expectorated Sputum 10/23/21 07:35 M. tuberculosis Complex (PCR) - Final Sputum - Endotracheal Tube Aspirate MTB Complex and Rifampin Resistance - Final 10/22/21 17:15 M. tuberculosis Complex (PCR) - Final Sputum - Endotracheal Tube Aspirate MTB Complex and Rifampin Resistance - Final A&P Assessment and plan (1) Sepsis: Status: Acute Qualifiers: Sepsis type: sepsis due to unspecified organism Sepsis acute organ dysfunction status: with acute organ dysfunction Severe sepsis acute organ dysfunction type: acute respiratory failure Acute respiratory failure type: with hypoxia Severe sepsis shock status: with septic shock Qualified Code(s): A41.9 - Sepsis, unspecified organism; R65.21 - Severe sepsis with septic shock; J96.01 - Acute respiratory failure with hypoxia (2) Pneumonia: Status: Acute Qualifiers: Pneumonia type: due to unspecified organism Laterality: right Lung location: lower lobe of lung Qualified Code(s): J18.9 - Pneumonia, unspecified organism (3) Hemoptysis: Status: Acute (4) Congestive heart disease: Status: Acute Qualifiers: Heart failure type: combined systolic and diastolic Heart failure chronicity: acute on chronic Qualified Code(s): I50.43 - Acute on chronic combined systolic (congestive) and diastolic (congestive) heart failure (5) HIV (human immunodeficiency virus infection): Status: Acute Qualifiers: HIV symptom status: symptomatic Qualified Code(s): B20 - Human immunodeficiency virus [HIV] disease (6) ESRD (end stage renal disease) on dialysis: Status: Acute (7) Sleep apnea: Status: Acute Qualifiers: Sleep apnea type: unspecified type Qualified Code(s): G47.30 - Sleep apnea, unspecified (8) Cardiac arrest: Status: Acute Plan Vivek Harden is a 36-year-old male with past medical history of , HIV, on HAART ,HFrEF,? end-stage renal disease dialysis dependent Friday, history of testicular cancer HENRY currently , was admitted with chief complaint of worsening shortness of breath, hemoptysis going on over past several months, variously attributed to CHF, recurrent pneumonias, pleural effusions, multiple hospital admissions here and at OSH in [place]. Currently CTA of his chest is without any evidence of PE, it does show a dense con solidation in the right middle and upper lobes. #Right-sided dense consolidation/pneumonia along with acute respiratory failure requiring intubation and mechanical ventilation. Now extubated and doing well #PEA, status post cardiac arrest on 10/22/2021 at 3 AM, received CPR for approximately 10 minutes. -Currently on empiric antibiotic coverage with piperacillin tazobactam and levofloxacin day 7 today. Discontinue levaquin as completed adeqaute course. Continue zosyn while remains inpatient, transition to Augmentin at discharge to complete total 10 days of treatment. Extensive work-up has not revealed any atypical etiology at this present time. -Patient is currently saturating well on room air. -No further episodes of hemoptysis # sputum Gram stain and culture : resp leoncio on culture MRSA PCR from nares negative, d/c vancomycin 10/22-10/24 urine bacterial Ag : negative and Legionella antigens: not collected fungal cx: few C. glabrata from bronch wash, unlikely to be the cause of pneumonia in the absence of fungemia, more likely from oropharyngeal thrush, started on fluconazole 100 mg p.o. daily, continue for 10 days. Patient is not using the nystatin as prescribed earlier Mycobacterial/ AFB smear x 3 negative, and, MTB PCR negative x3 from endotracheal aspirate Tuberculosis has been ruled out based on these above results Negative PJP PCR Serum and bronch AG/GM: pending Serum BDG : pending, however with a negative pneumocystis PCR can exclude pneumocystis pneumonia appreciate bronchoscopy and pulm recommendations # PEA arrest; h/o cardiomyopathy of uncertain etiology -Troponin elevated range 140s, past check ~119 from May, delta <10, no pericardial effusion on echo - EF 22%, down from 30-35% in 05/2021 - cardiology consult appreciated -Underwent left heart cath today, no obstructive CAD noted. Nonischemic cardiomyopathy based on above results. Per cardiology recommendation will restart Entresto. -continue metoprolol 50 po BID , HR better controlled -assessment for life vest # HIV : VL returned at 147,000; CD4 count pending. Virological failure likely 2/2 non compliance and interruption of regimen. will check HIV 1 genotype for resistance pattern. Reports that he will likely be complaint with a once daily regimen. Will d/c Prezcobix and Tivicay- switch to Biktarvy 1 tab po daily- sent to outpatient pharmacy. Administer after HD on dialysis days. Baseline hepatitis B&C panel with am labs. Based on CD4 count will decide most appro priate ppx, if indicated. # CKD on HD: Appreciate renal recommendations. MAURA screen negative. No kidney biopsy performed in the past per patient. next session tomorrow Attestations Medical Necessity Statement*: [facility] today, planned HD tomorrow, Life vest assessment, completion of iv abx course Coding Level of Care Code Acute Vascular Neurologist for [facility] Fwd Diagnoses Sepsis A41.9; R65.21; J96.01 Sepsis type: sepsis due to unspecified organism Sepsis acute organ dysfunction status: with acute organ dysfunction Severe sepsis acute organ dysfunction type: acute respiratory failure Acute respiratory failure type: with hypoxia Severe sepsis shock status: with septic shock Pneumonia J18.9 Pneumonia type: due to unspecified organism Laterality: right Lung location: lower lobe of lung Hemoptysis R04.2 Congestive heart disease I50.43 Heart failure type: combined systolic and diastolic Heart failure chronicity: acute on chronic HIV (human immunodeficiency virus infection) B20 HIV symptom status: symptomatic ESRD (end stage renal disease) on dialysis N18.6; Z99.2 Sleep apnea G47.30 Sleep apnea type: unspecified type Cardiac arrest I46.9
--- NOTE | 2021-10-28 17:22 | P.PN_ITS ---
Subjective Medications: Reviewed: Yes Medication Review Details: Current Medications Acetaminophen (Acetaminophen 325 Mg Tablet) 650 mg PO Q6H PRN PRN Reason: Mild/Mod Pain Or Temp >/= 101 Albuterol/Ipratropium (Ipratropium-Albuterol 3 Ml Neb) 3 ml INHALATION Q6H .RESPIRATORY [facility]IGUEL Last Admin: 10/25/21 03:02 Dose: Not Given Documented by: Bisacodyl (Bisacodyl 5 Mg Tablet) 10 mg PO DAILY [facility]; Protocol Last Admin: 10/24/21 09:36 Dose: 10 mg Documented by: Citalopram Hydrobromide (Citalopram 20 Mg Tablet) 20 mg PO DAILY [facility] Last Admin: 10/24/21 09:36 Dose: 20 mg Documented by: Ergocalciferol (Ergocalciferol (Vitamin D2) 50,000 Unit Capsule) 50,000 unit PO Q7D [facility] Last Admin: 10/24/21 09:37 Dose: 50,000 unit Documented by: Guaifenesin/Codeine Phosphate (Guaifenesin-Codeine Udc 10 Ml) 5 ml PO Q6H PRN PRN Reason: COUGH Piperacillin Sod/Tazobactam (Sod 3.375 gm/ Sodium Chloride) 50 mls @ 100 mls/hr IV Q12H [facility]; Protocol Last Infusion: 10/24/21 22:53 Dose: Infused Documented by: Norepinephrine Bitartrate 4 mg (/ Dextrose) 254 mls @ 0 mls/hr IV .Q0M [facility]; Protocol Last Titration: 10/24/21 22:51 Dose: 0 mcg/min, 0 mls/hr Documented by: Fentanyl 2,500 mcg/ Sodium (Chloride) 250 mls @ 0 mls/hr IV .Q0M [facility]; Protocol Last Titration: 10/24/21 03:45 Dose: 0 mcg/hr, 0 mls/hr Documented by: Albumin Human (Albumin) 12.5 gm in 50 mls @ 60 mls/hr IV PRN PRN PRN Reason: Hypotension and/or symptomatic Vancomycin HCl 1,000 mg/ (Sodium Chloride) 250 mls @ 250 mls/hr IV MoWeFr [facility]; Protocol Last Infusion: 10/24/21 02:04 Dose: Infused Documented by: dexmedeTOMIDine 0.9 % NaCL (Precedex) 400 mcg in 100 mls @ 0 mls/hr IV .Q0M [facility]; Protocol Last Admin: 10/24/21 00:29 Dose: 0.1 mcg/kg/hr, 1.64 mls/hr Documented by: Lanolin (Lanolin Oint 7 Gm) 1 applic TOPICAL PRN PRN PRN Reason: DRYNESS Last Admin: 10/24/21 14:25 Dose: 1 appful Documented by: Levofloxacin (Levofloxacin 500 Mg Tablet) 500 mg OG-TUBE Q48H [facility]; Protocol Last Admin: 10/24/21 09:36 Dose: 500 mg Documented by: Ondansetron HCl (Ondansetron 2 Mg/Ml Sdv 2 Ml) 4 mg IVP Q8H PRN PRN Reason: vomiting, or N/V if npo Pantoprazole Sodium (Pantoprazole 40 Mg Sdv) 40 mg IVP Q12H [facility] Last Admin: 10/25/21 02:54 Dose: 40 mg Documented by: Vitals/I&O/Wt Last Vital Signs Temp 98.0 F 10/28/21 15:32 Pulse 93 10/28/21 15:32 Resp 11 L 10/28/21 15:32 BP 122/89 10/28/21 15:32 Pulse Ox 99 10/28/21 15:32 10/28/21 10/28/21 10/28/21 06:59 14:59 22:59 Intake Total 350 / 760 118 / 118 Balance 350 / 760 118 / 118 Physical Exam Chest: OTHER: GENERAL: Patient is alert, awake and oriented x3. NECK: No jugular vein distension. HEENT: No cyanosis. No icterus. No pallor. HEART: Regular S1 and S2. No murmur, rub or gallop. LUNGS: Clear to auscultate bilaterally. ABDOMEN: Soft, nontender and nondistended. Positive bowel sounds. No guarding, rebound or tenderness. CENTRAL NERVOUS SYSTEM: Grossly nonfocal. EXTREMITIES: Lower extremities without edema bilaterally. Pulses palpable in the lower extremities, both dorsalis pedis and posterior tibial. Urinary Catheter Management: Mckeon: Cath Placed During This Visit: yes Reason for Continuing Indwelling Catheter: Accurate Measurement of Urinary Out put in Critically Ill Patients Urinary Catheter Date of Insertion: 10/22/21 Urinary Catheter Time of Insertion: 02:11 Data : 10/28/21 04:58 10/28/21 04:58 Micro: Microbiology 10/22/21 13:30 M. tuberculosis Complex (PCR) - Final Sputum - Endotracheal Tube Aspirate MTB Complex and Rifampin Resistance - Final 10/23/21 14:30 Mycobacterial Smear - Preliminary Sputum - Expectorated Sputum 10/23/21 07:35 M. tuberculosis Complex (PCR) - Final Sputum - Endotracheal Tube Aspirate MTB Complex and Rifampin Resistance - Final 10/22/21 17:15 M. tuberculosis Complex (PCR) - Final Sputum - Endotracheal Tube Aspirate MTB Complex and Rifampin Resistance - Final A&P Assessment and plan (1) Pneumonia: As per medicine Status: Acute Qualifiers: Pneumonia type: due to unspecified organism Laterality: right Lung location: lower lobe of lung Qualified Code(s): J18.9 - Pneumonia, unspecified organism (2) Cardiac arrest: History of PE arrest no EKG available Status: Acute (3) Congestive heart disease: Nonischemic coronary arteries are normal, continue to optimize medicine for heart failure. Consider LifeVest before discharge. Repeat echo in 3 months on medicine for decision regarding ICD if ejection fraction does not improve Status: Acute Qualifiers: Heart failure type: combined systolic and diastolic Heart failure chronicity: acute on chronic Qualified Code(s): I50.43 - Acute on chronic combined systolic (congestive) and diastolic (congestive) heart failure (4) ESRD (end stage renal disease) on dialysis: On dialysis continue Status: Acute (5) HIV (human immunodeficiency virus infection): As per medicine Status: Acute Qualifiers: HIV symptom status: symptomatic Qualified Code(s): B20 - Human immunodeficiency virus [HIV] disease Coding Level of Care Code Acute 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
[2021-10-28 17:27] LABS: Fungitell 1-3-B Glucan Assay 401 pg/mL; Interpretation POSITIVE
[2021-10-28] MEDS: nystatin 100,000 unit/mL UDC 5 mL 500000 UNIT PO ×2 (18:02→19:45)
--- NOTE | 2021-10-28 19:56 | PC.NURSE ---
Shift Note Frequent safety and comfort rounds continue. Orders and/or nursing care completed as indicated. Patient monitored for response to intervention and treatment(s). Education provided includes post angiogram activity restrictions, hemodialysis tomorrow as scheduled, Life vest order and continuos antibiotic treatments. Patient and/or sales representative door to door verbalies understanding. Will continue to monitor.
[2021-10-29] VITALS (7 sets, daily range): BP systolic 108–139; BP diastolic 77–103; PULSE 82–104; RESP 16–22; TEMP 36.5–37.1; O2SAT 94–98
[2021-10-29 03:49] LABS: Basophils % 0.3 %; Hematocrit 36.6 % (42.0-52.0); Hemoglobin 11.5 g/dL (11.7-16.6); Lymphocytes # 0.6 10^3/uL (0.8-4.8); Lymphocytes % 20.8 %; Mean Corpuscular HGB Conc 31.4 g/dL (30.0-36.0); Mean Corpuscular Hemoglobin 28.7 pg (28.0-34.0); Mean Corpuscular Volume 91.3 fl (80-94); Mean Platelet Volume 12.4 fL (7.4-10.4); Monocytes # 0.3 10^3/uL (0.2-0.9); Monocytes % 10.6 %; Neutrophils # 1.96 10^3/uL (1.8-7.7); Neutrophils % 64.7 %; Nucleated Red Blood Cells # 0.1 /100WBC; Nucleated Red Blood Cells % 3.3 %; Platelet Count 122 10^3/cmm (130-400); Red Blood Count 4.01 10^6/uL (4.1-5.3); Red Cell Distribution Width 18.6 % (12.1-15.1)
[2021-10-29 04:10] LABS: Alanine Aminotransferase 31 U/L (0-41); Alkaline Phosphatase 55 IU/L (40-130); Anion Gap 24.8 (5-19); Aspartate Amino Transferase 31 U/L (0-40); Blood Urea Nitrogen 46 mg/dL (6-20); Calcium 8.9 mg/dL (8.5-10.5); Carbon Dioxide 21 mmol/L (22-29); Chloride 98 mmol/L (98-107); Globulin 4.2 g/dL (1.3-4.6); Glomerular Filtration Rate 8.6 mL/min (90-130); Glucose 100 mg/dL (65-115); Osmolality Calculated 298 mOsm/kg (285-295); Potassium 5.8 mmol/L (3.5-5.1); Sodium 138 mmol/L (136-145); Total Bilirubin 0.4 mg/dL (0.15-1.2); Total Protein 7.2 g/dL (6.6-8.7)
[2021-10-29 04:19] LABS: Creatinine Clr Calc Pharmacy 12.1042
[2021-10-29 04:46] LABS: Hepatitis A Antibody IgM Non-Reactive (Nonreactive); Hepatitis B Core AB, Total Non-Reactive (Nonreactive); Hepatitis B Surface AB 31.1 (11.5-1000); Hepatitis B Surface Antigen Non-Reactive (Nonreactive); Hepatitis C Virus Antibody Non-Reactive (Nonreactive)
--- NOTE | 2021-10-29 07:17 | PC.NURSE ---
Report received from addiction specialist nurse. Patient is in dialysis at this time.
--- NOTE | 2021-10-29 08:13 | PC.HD ---
Per snow maker, HD is to be performed using patient's fistula access instead of his HD catheter. Patient adamantly refused this RN to access his fistula, stating severe pain as the reason. However, fistula was accessed for prior two treatments, with no complaints of pain from the patient. Dr. Regan was contacted and restated his preference for using the fistula, but allowed this RN to run dialysis using his catheter.
--- NOTE | 2021-10-29 08:45 | P.PN_ITS ---
Subjective Subjective: Interval history: seen on dialysis- no n/v/f/c/pastrana/cp/sob Medications: Reviewed: Yes Medication Review Details: Current Medications Acetaminophen (Acetaminophen 325 Mg Tablet) 650 mg PO Q6H PRN PRN Reason: Mild/Mod Pain Or Temp >/= 101 Albuterol/Ipratropium (Ipratropium-Albuterol 3 Ml Neb) 3 ml INHALATION Q6H.RESPIRATORY [facility] Last Admin: 10/29/21 03:06 Dose: Not Given Documented by: Bisacodyl (Bisacodyl 5 Mg Tablet) 10 mg PO DAILY [facility]; Protocol Last Admin: 10/28/21 08:20 Dose: Not Given Documented by: Citalopram Hydrobromide (Citalopram 20 Mg Tablet) 20 mg PO DAILY [facility] Last Admin: 10/28/21 08:20 Dose: 20 mg Documented by: Ergocalciferol (Ergocalciferol (Vitamin D2) 50,000 Unit Capsule) 50,000 unit PO Q7D [facility] Last Admin: 10/24/21 09:37 Dose: 50,000 unit Documented by: Fluconazole (Fluconazole 100 Mg Tablet) 100 mg PO DAILY [facility] Piperacillin Sod/Tazobactam (Sod 3.375 gm/ Sodium Chloride) 50 mls @ 100 mls/hr IV Q12H [facility]; Protocol Last Infusion: 10/29/21 04:13 Dose: Infused Documented by: Albumin Human (Albumin) 12.5 gm in 50 mls @ 60 mls/hr IV PRN PRN PRN Reason: Hypotension and/or symptomatic Lanolin (Lanolin Oint 7 Gm) 1 applic TOPICAL PRN PRN PRN Reason: DRYNESS Last Admin: 10/24/21 14:25 Dose: 1 appful Documented by: Metoprolol Tartrate (Metoprolol Tartrate 50 Mg Tablet) 50 mg PO BID@0900,2100 [facility] Last Admin: 10/28/21 19:45 Dose: 50 mg Documented by: Nystatin (Nystatin 100,000 Unit/Ml Udc 5 Ml) 500,000 unit PO QID [facility] Last Admin: 10/28/21 19:45 Dose: 500,000 unit Documented by: Ondansetron HCl (Ondansetron 2 Mg/Ml Sdv 2 Ml) 4 mg IVP Q8H PRN PRN Reason: vomiting, or N/V if npo Last Admin: 10/28/21 09:27 Dose: 4 mg Documented by: Pantoprazole Sodium (Pantoprazole Dr 40 Mg Tablet) 40 mg PO BID [facility] Last Admin: 10/28/21 18:02 Dose: 40 mg Documented by: Vitals/I&O/Wt Last Vital Signs Temp 97.7 F 10/29/21 08:11 Pulse 96 10/29/21 08:11 Resp 16 10/29/21 08:11 BP 115/89 10/29/21 08:11 Pulse Ox 98 10/29/21 03:50 10/28/21 10/29/21 10/29/21 22:59 06:59 14:59 Intake Total 770 / 888 410 / 1298 Output Total 3050 / 3050 Balance -2280 / -2162 410 / -1752 Physical Exam Narrative: EXAM NARRATIVE: seen on dialysis vss heent- nc/at, eomi, anicteric neck - no jvp, rt PC lung - good air movement b/l heart - reg, + oskar abd soft, nt, nd, +BS ext -? no edema LUE AVF w/ thrill and bruit neuro- a,a, o x 3 Urinary Catheter Management: Mckeon: Cath Placed During This Visit: yes Reason for Continuing Indwelling Catheter: Accurate Measurement of Urinary Output in Critically Ill Patients Urinary Catheter Date of Insertion: 10/22/21 Urinary Catheter Time of Insertion: 02:11 Data : 10/29/21 03:25 10/29/21 03:25 A&P Assessment and plan (1) ESRD (end stage renal disease) on dialysis: 1. ESRD HD now - 3.5 hrs, 2k bath, remove 2-3 l based on BP Dose medication for GFR less than 15 on dialysis. -phos binders 2. HIV per ID- ?Will d/c Prezcobix and Tivicay- switch to Biktarvy 1 tab po daily- sent to outpatient pharmacy. Administer after HD on dialysis days. Baseline hepatitis B&C panel with am labs. Based on CD4 count will decide most appropriate ppx, if indicated. 3. leukopenia and thrombocytopenia 4. pna- remains on zosyn 5. neg for tb 6. s/p LHC - no obstructive CAD noted EF down to 22% Patient seen and examined via telemedicine, with the assistance of the bedside RN > 30 min spent in evaluation and mgmt of patient Status: Acute Plan esrd, pna, hyperkalemia, systolic chf- d/c per medicine Attestations Medical Necessity Statement*: per medicine Time Spent in Patient Care: 16 - 35 minutes (>than 50% of time spent in counselling and/or direct pt care on unit) . Coding Level of Care Code Acute [employer] for [facility] [employer] [facility] [employer] Fwd Diagnoses ESRD (end stage renal disease) on dialysis N18.6; Z99.2
--- NOTE | 2021-10-29 08:50 | PC.SOCIAL ---
IMM UPDATED IMM dated and initialed and copy given to patient
[2021-10-29] MEDS: ipratropium-albuterol 3 mL Neb INHALATION (09:56)
--- NOTE | 2021-10-29 11:06 | PC.NURSE ---
Patient back from dialysis. 2.5 liters of fluild were removed.
[2021-10-29] MEDS: b-complex-vitamin c Tablet 1 EACH PO (11:09)
[2021-10-29] MEDS: fluconazole 100 mg Tablet PO (11:10)
[2021-10-29] MEDS: piperacillin-tazobactam 3.375 GM in sodium chloride 0.9% (plus) 50 ML IV (11:10)
[2021-10-29] MEDS: citalopram 20 mg Tablet PO (11:10)
--- NOTE | 2021-10-29 13:11 | PM.PN ---
Subjective Subjective: Interval history: Patient denies any complaints. He underwent left heart cath yesterday with normal coronaries. Medications: Reviewed: Yes Vitals/I&O/Wt Last Vital Signs Temp 98.2 F 10/29/21 11:53 Pulse 82 10/29/21 11:53 Resp 16 10/29/21 11:53 BP 114/79 10/29/21 11:53 Pulse Ox 98 10/29/21 03:50 10/28/21 10/29/21 10/29/21 22:59 06:59 14:59 Intake Total 770 / 888 410 / 1298 300 / 300 Output Total 3050 / 3050 2800 / 2800 Balance -2280 / -2162 410 / -1752 -2500 / -2500 Weight last 48 hrs Weight 143 lb 15.39 oz Physical Exam Narrative: EXAM NARRATIVE: GENERAL: AAM ; Averagely built and averagely nourished in no acute distress HEENT: No icterus. NECK: No JVD, CARDIOVASCULAR SYSTEM: S1-S2 regular. grade 3/6 systolic murmur+ RESPIRATORY SYSTEM: CTAB/L, No wheezes or rales ABDOMEN: Soft, nontender and nondistended.? Normal bowel sounds present.? EXTREMITIES: No edema.? No signs of chronic venous insufficiency. 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 No focal neurological deficits.? Urinary Catheter Management: Mckeon: Cath Placed During This Visit: yes Reason for Continuing Indwelling Catheter: Accurate Measurement of Urinary Output in Critically Ill Patients Urinary Catheter Date of Insertion: 10/22/21 Urinary Catheter Time of Insertion: 02:11 Data : 10/29/21 03:25 10/29/21 03:25 A&P Assessment and plan (1) Pneumonia: As per medicine Status: Acute Qualifiers: Laterality: right Lung location: lower lobe of lung Pneumonia type: due to unspecified organism Qualified Code(s): J18.9 - Pneumonia, unspecified organism (2) Cardiac arrest: History of PE arrest. no EKG changes. No strip/EKG documenting ST deviations. Status: Acute (3) Congestive heart disease: Nonischemic coronary arteries are normal, continue to optimize medicine for heart failure. Consider LifeVest before discharge. Repeat echo in 3 months on medicine for decision regarding ICD if ejection fraction does not improve. -h/o non compliance -f/u in 2 weeks with Ms. Yoly Hinojosa in [facility] -f/u in 8 weeks with me Status: Acute Qualifiers: Heart failure chronicity: acute on chronic Heart failure type: combined systolic and diastolic Qualified Code(s): I50.43 - Acute on chronic combined systolic (congestive) and diastolic (congestive) heart failure (4) ESRD (end stage renal disease) on dialysis: On dialysis continue Status: Acute (5) HIV (human immunodeficiency virus infection): As per medicine Status: Acute Qualifiers: HIV symptom status: symptomatic Qualified Code(s): B20 - Human immunodeficiency virus [HIV] disease Attestations Medical Necessity Statement*: stable to be discharged Coding Level of Care Code Established Pt Acute Academic Affairs Dean for Chg Fwd Patient Type Established History Detailed Exam Detailed Medical Decision Making Moderate Complexity Diagnoses Pneumonia J18.9 Laterality: right Lung location: lower lobe of lung Pneumonia type: due to unspecified organism Cardiac arrest I46.9 Congestive heart disease I50.43 Heart failure chronicity: acute on chronic Heart failure type: combined systolic and diastolic ESRD (end stage renal disease) on dialysis N18.6; Z99.2 HIV (human immunodeficiency virus infection) B20 HIV symptom status: symptomatic
[2021-10-29] MEDS: sevelamer 800 mg Tablet 1600 MG PO (14:27)
[2021-10-29] MEDS: nystatin 100,000 unit/mL UDC 5 mL 500000 UNIT PO (14:27)
--- NOTE | 2021-10-29 16:36 | PM.DCS ---
Discharge Providers Date of Admission: 10/22/21 01:01 Date of Discharge: October 29, 2021 Attending Provider at Admission: Brant Wiggins MD Attending Provider at Discharge: Negro Rosado Primary Care Provider: Rebecca Montiel MD Diagnoses at Discharge Discharge Diagnosis (1) Pneumonia: Status: Acute Qualifiers: Pneumonia type: due to unspecified organism Laterality: right Lung location: lower lobe of lung Qualified Code(s): J18.9 - Pneumonia, unspecified organism (2) Cardiac arrest: Status: Acute (3) Congestive heart disease: Status: Acute Qualifiers: Heart failure type: combined systolic and diastolic Heart failure chronicity: acute on chronic Qualified Code(s): I50.43 - Acute on chronic combined systolic (congestive) and diastolic (congestive) heart failure (4) ESRD (end stage renal disease) on dialysis: Status: Acute (5) HIV (human immunodeficiency virus infection): Status: Acute Qualifiers: HIV symptom status: symptomatic Qualified Code(s): B20 - Human immunodeficiency virus [HIV] disease Reason for Visit Reason for Visit: SOB Hospital Course Hospital Course 36-year-old gentleman with uncontrolled HIV, cardiomyopathy with HFrEF, ESRD on hemodialysis MWF, other, Giurgius was admitted with complaint of worsening shortness of breath over the preceding week, with substernal dull chest pain, nonradiating, with CTA showing multilobar pneumonia, involving right upper and middle lobes, no PE, right pleural effusion, dilated cardiomyopathy, mild interstitial edema. Started on antibiotic treatment with Zosyn and vancomycin, with noted hemoptysis also ID consultation was sought, and additional studies requested for mycobacterial, fungal, pneumocystis infection. Shortly after admission with decompensated respiratory failure, agitation, unresponsive episode and PEA arrest requiring CPR with ROSC achieved after 10 minutes. Intubated during the code, required minimal pressor support subsequently. Echocardiogram obtained with noted mildly dilated ventricle with markedly diminished ejection fraction, 20%. Severe diffuse hypokinesia of left ventricle. Mild atrial enlargement bilaterally. Severe eccentric tricuspid regurgitation. Estimated pulmonary artery peak systolic pressure of 43 mmHg. Moderately severe central mitral regurgitation. Minimally thickened aortic and mitral valves. Trivial pericardial effusion. Compared to study from 05/30/2021 with worsening of LV systolic function ejection fraction decreased to 20% from 30-35%. While intubated on mechanical inhalation additionally assessed by pulmonology, noted small cavitary lesion on CT and right lung apex in addition to consolidation of right middle lobe and posterior right upper lobe. Pulmonary alveolar hemorrhage, with suspected ruptured vessel versus pulmonary renal syndrome. Underwent bronchoscopy which showed erythematous mucosa predominantly on the right bronchial tree and left main bronchus with no active bleeding. BAL from right middle lobe sent for microbiology studies. Rare yeast and aspirate, otherwise no bacterial growth. Mycobacterial smear pending. MTB complex PCR negative. MRSA PCR negative. Pneumocystis studies negative. COVID-19 PCR also negative. Weaned off mechanical ventilatory support. Extubated, with oxygenation improved down to room air. Was assessed by cardiology also due to CHF, worsening ejection fraction with dilated cardiomyopathy, additionally underwent coronary angiographic assessment which showed no significant obstructive coronary disease. He is encouraged to resume Entresto for nonischemic cardiomyopathy. He is asked to follow-up with cardiology in office. LifeVest is requested for him at discharge. Dialysis clinic staff will also be arranging to be trained for LifeVest for hemodialysis continuation. He is continued on Diflucan to complete 10 days and nystatin swish and swallow for thrush. He is given prescription to complete antibiotic course with Augmentin after treatment with Zosyn and vancomycin in the hospital to complete 10 days of therapy. He is also given prescription for Biktarvy, although it is not in stock today, but will be available for him to leaf size picker tomorrow. He is given instructions to take the morning dose after dialysis on dialysis days. Physical Exam Const: COMMON NORMALS: no acute distress and patient oriented x3 HENMT: COMMON NORMALS: oropharynx normal Neck/C-Spine: COMMON NORMALS: no JVD Resp: COMMON NORMALS: normal respiratory effort and clear to auscultation bilaterally AUSCULTATION: clear to auscultation bilaterally Cardio: COMMON NORMALS: no JVD, regular rhythm, S1 normal heart sound present, S2 normal heart sound present and No murmurs present (Cardio) RHYTHM: regular rhythm HEART SOUNDS: S1 normal heart sound present and S2 normal heart sound present GI: COMMON NORMALS: Normal to inspection, nondistended, normoactive bowel sounds present, Soft to palpation and non-tender PALPATION: Yes Soft to palpation Extremity: COMMON NORMALS: no joint enlargement and no pedal edema Neuro: COMMON NORMALS: patient oriented x3 and moves all extremities Skin: COMMON NORMALS: no rashes or lesions noted GENERAL SKIN EXAM: no rashes or lesions noted Urinary Catheter Management: Mckeon: Cath Placed During This Visit: yes Reason for Continuing Indwelling Catheter: Accurate Measurement of Urinary Output in Critically Ill Patients Urinary Catheter Date of Insertion: 10/22/21 Urinary Catheter Time of Insertion: 02:11 Discharge Data Studies Completed and Pending Completed Studies During Hospitalization Category Date Time Status CT abdomen pelvis wo con [id number] Routine Cat Scan 10/22/21 14:[address] angio chest PE protcl [id number] Stat Cat Scan 10/21/21 23:[address] head wo con* [id number] Routine Cat Scan 10/22/21 14:52 Completed XR chest 1V portable [id number] Routine Exams 10/22/21 01:47 Completed XR chest 1V portable [id number] Stat Exams 10/21/21 20:56 [place] [id number] Routine Ultrasound 10/24/21 09:04 Completed CV. echo complete* [id number] Routine Ultrasound 10/22/21 08:43 Completed Pending at discharge Category Date Time Status [employer]ULT [employer] TE[employer] request for service Routine Exams 10/28/21 11:49 Taken ABG FULL [Arterial Blood Gas Full] Stat Lab 10/22/21 01:28 Results Aspergillus AG,EIA,Serum Stat Lab 10/22/21 11:45 Received Fungal Culture not HR/SK/BL Stat Lab 10/22/21 13:30 Results MTB Complex Rifampin PCR Q8H Lab 10/22/21 13:30 Results MTB Complex Rifampin PCR Q8H Lab 10/22/21 17:15 Results MTB Complex Rifampin PCR Q8H Lab 10/23/21 07:35 Results Miscellaneous Test AM LABS Lab 10/29/21 04:00 Received Mycobacteria, Culture w/Fluor Q8H Lab 10/22/21 13:30 Results Mycobacteria, Culture w/Fluor Q8H Lab 10/22/21 17:15 Results Mycobacteria, Culture w/Fluor Q8H Lab 10/23/21 14:30 Results Radiology Impressions Chest CTA 10/21/21 23:24 IMPRESSION: 1. Multilobar pneumonia involving right upper and middle lobes. 2. Negative for pulmonary embolism. 3. Right pleural effusion. 4. Dilated cardiomyopathy. 5. Mild interstitial edema. Chest X-Ray 10/22/21 01:47 IMPRESSION: 1. Endotracheal tube tip 6.4 cm from the keagan. 2. Nasogastric tube tip in proximal stomach. The proximal side port is within the distal esophagus. 3. Stable placement of the dialysis catheter. 4. Worsening right-sided pneumonia. Abdomen/Pelvis CT 10/22/21 14:52 IMPRESSION: 1. Negative for focal acute inflammatory process in the abdomen or pelvis. 2. Cardiomegaly. 3. Pericardial effusion measuring up to 12 mm in thickness. 4. Small bilateral right greater than left pleural effusions. 5. Enteric tube tip in the stomach. 6. Stent seen in the vena cava at the level of the liver. 7. Moderate ascites in the abdomen. 8. Contrast in the gallbladder. 9. Bilateral right greater left nonobstructing calyceal stones. 10. Several bilateral renal cysts, negative for follow-up advised. 11. Right femoral catheter. 12. Mckeon catheter in the urinary bladder. Head CT 10/22/21 14:52 IMPRESSION: No acute intracranial abnormality. Laboratory Results WBC 3.0 10^3/uL (4.0-10.0) L 10/29/21 03:25 RBC 4.01 10^6/uL (4.1-5.3) L 10/29/21 03:25 Hgb 11.5 g/dL (11.7-16.6) L 10/29/21 03:25 Hct 36.6 % (42.0-52.0) L 10/29/21 03:25 MCV 91.3 fl (80-94) 10/29/21 03:25 MCH 28.7 pg (28.0-34.0) 10/29/21 03:25 MCHC 31.4 g/dL (30.0-36.0) 10/29/21 03:25 RDW 18.6 % (12.1-15.1) H 10/29/21 03:25 Plt Count 122 10^3/cmm (130-400) L 10/29/21 03:25 MPV 12.4 fL (7.4-10.4) H 10/29/21 03:25 Neut % (Auto) 64.7 % 10/29/21 03:25 Lymph % (Auto) 20.8 % 10/29/21 03:25 Mclennan % (Auto) 10.6 % 10/29/21 03:25 Eos % (Auto) 0.0 % 10/29/21 03:25 Baso % (Auto) 0.3 % 10/29/21 03:25 Neut # (Auto) 1.96 10^3/uL (1.8-7.7) 10/29/21 03:25 Lymph # (Auto) 0.6 10^3/uL (0.8-4.8) L 10/29/21 03:25 Mclennan # (Auto) 0.3 10^3/uL (0.2-0.9) 10/29/21 03:25 Eos # (Auto) 0.0 10^3/uL (0.0-0.8) 10/29/21 03:25 Baso # (Auto) 0.0 10^3/uL (0.0-0.1) 10/29/21 03:25 Nucleated RBC % (auto) 3.3 % 10/29/21 03:25 Nucleated RBCs # 0.1 /100WBC 10/29/21 03:25 D-Dimer 5.56 ug/mIFEU (0-0.59) H 10/21/21 20:59 Specimen Type Arterial 10/22/21 10:20 Sample Site Radial, right 10/22/21 10:20 ABG pH 7.42 (7.35-7.45) 10/22/21 10:20 ABG pCO2 42.8 mmHg (35-45) 10/22/21 10:20 ABG pO2 68.5 mmHg (80.0-100.0) L 10/22/21 10:20 ABG HCO3 27.8 mmol/L (22-26) H 10/22/21 10:20 ABG O2 Saturation 98.6 10/22/21 05:00 ABG Base Excess 2.9 mmol/L (-2.0-2.0) H 10/22/21 10:20 Wilfred Test Pos 10/22/21 10:20 A-a O2 Gradient 35.0 mmHg (5-10) H 10/22/21 05:00 Hematocrit 32.7 % (42-52) L 10/22/21 10:20 Hgb O2 Saturation 96.3 % (95-100) 10/22/21 05:00 Carboxyhemoglobin 1.2 %THgb (0.4-20.1) 10/22/21 05:00 Methemoglobin 1.1 % (0.4-1.5) 10/22/21 05:00 Total Hemoglobin 10.7 g/dL (14-18) L 10/22/21 05:00 Sodium 135.0 mmol/L (131-143) 10/22/21 05:00 Potassium 4.4 mmol/L (3.5-5.0) 10/22/21 05:00 Glucose 181.0 mg/dL (70-115) H 10/22/21 05:00 Ionized Calcium 1.0 mmol/L (1.1-1.4) L 10/22/21 05:00 O2 Delivery Device Vent 10/22/21 10:20 FiO2 40.0 % 10/22/21 10:20 Tidal Volume 0.40 10/22/21 10:20 PEEP 6.0 cmH20 10/22/21 10:20 Component Assembler ID Gd 10/22/21 10:20 Sodium 138 mmol/L (136-145) 10/29/21 03:25 Potassium 5.8 mmol/L (3.5-5.1) H 10/29/21 03:25 Chloride 98 mmol/L (98-107) 10/29/21 03:25 Carbon Dioxide 21 mmol/L (22-29) L 10/29/21 03:25 Anion Gap 24.8 (5-19) H 10/29/21 03:25 BUN 46 mg/dL (6-20) H 10/29/21 03:25 Creatinine 8.5 mg/dL (0.7-1.2) H* 10/29/21 03:25 GFR Calculation 8.6 mL/min (90-130) L 10/29/21 03:25 Glucose 100 mg/dL (65-115) 10/29/21 03:25 POC Glucose 84 mg/dL (70-110) 10/22/21 00:52 Calculated Osmolality 298 mOsm/kg (285-295) H 10/29/21 03:25 Lactic Acid 1.6 mmol/L (0.5-2.2) 10/21/21 20:50 Lactate 1.8 mmol/L (0.5-2.2) 10/22/21 11:45 Calcium 8.9 mg/dL (8.5-10.5) 10/29/21 03:25 Phosphorus 5.8 mg/dL (2.5-4.5) H 10/28/21 04:58 Magnesium 2.7 mg/dL (1.7-2.3) H 10/28/21 04:58 Iron 77 ug/dL (59-158) 10/23/21 04:13 TIBC 150 mcg/dl 10/23/21 04:13 % Saturation 51.3 % (20-50) H 10/23/21 04:13 Unsat Iron Binding 73 ug/dL (112-347) L 10/23/21 04:13 Ferritin 89751 ng/mL (30-400) H 10/23/21 04:13 Total Bilirubin 0.4 mg/dL (0.15-1.2) 10/29/21 03:25 AST 31 U/L (0-40) 10/29/21 03:25 ALT 31 U/L (0-41) 10/29/21 03:25 Alkaline Phosphatase 55 IU/L (40-130) 10/29/21 03:25 Creatine Kinase 469 U/L (39-308) H* 10/22/21 11:45 Troponin T Baseline 143 ng/L (0-15) H* 10/21/21 20:50 Troponin T 120 Minute 149.6 ng/L (0-15) H 10/21/21 22:52 Delta Troponin T 6.6 ABS# (0-10) 10/21/21 22:52 Troponin T Hi Sens 6Hr 144.9 ng/L (0-15) H 10/22/21 02:00 Troponin T Hi Sens 6Hr Delta 1.9 ng/L (0-12) 10/22/21 02:00 C-Reactive Protein 41.9 mg/L (0.0-4.9) H 10/21/21 22:52 Total Protein 7.2 g/dL (6.6-8.7) 10/29/21 03:25 Albumin 3.0 g/dL (3.5-5.2) L 10/29/21 03:25 Globulin 4.2 g/dL (1.3-4.6) 10/29/21 03:25 25-OH Vitamin D Total 8 ng/mL (30-100) L 10/23/21 04:13 Procalcitonin 23.65 ng/mL (0-0.5) H 10/21/21 22:52 PTH Intact 519.0 pg/mL (15-65) H 10/23/21 04:13 Calcium (PTH Intact) 7.4 mg/dL (8.5-10.5) L 10/23/21 04:13 Sputum/Fluid Cytology Cancelled 10/22/21 17:15 Bronch Specimen Source Right lobe 10/22/21 17:15 Bronchial Fluid Color Red 10/22/21 17:15 Bronchial Fluid Appearance Cloudy (CLEAR) 10/22/21 17:15 Bronchial Fluid WBC 5201 /uL 10/22/21 17:15 Bronchial Fluid RBC 20 10^3/uL 10/22/21 17:15 Bronch Cells Counted 200 10/22/21 17:15 Bronchial Neutrophils 62.00 % (0.9-2.3) H 10/22/21 17:15 Bronchial Lymphocytes 12.50 % (10.71-12.91) 10/22/21 17:15 Bronchial Eosinophils 12.00 % (0.13-0.25) H 10/22/21 17:15 Bronchial Macrophages 13.50 % (83.6-86.8) L 10/22/21 17:15 Vancomycin Trough 31.1 ug/mL (10-15) H* 10/24/21 03:10 MAURA Screen Negative (NEGATIVE) 10/22/21 04:13 ANCA Screen Negative (NEGATIVE) 10/22/21 04:13 ANCA Titer Not Reportable 10/22/21 04:13 Glomerular Base Mem IgG <1.0 AI 10/22/21 04:13 Complement C3 70 mg/dL (90-180) L 10/22/21 11:45 Complement C4 19 mg/dL (10-40) 10/22/21 11:45 Coronavirus 229E (PCR) Not detected (NOT DETECT) 10/21/21 20:50 Hepatitis A IgM Ab Non-reactive (Nonreactive) 10/29/21 03:25 Hep Bs Antigen Non-reactive (Nonreactive) 10/29/21 03:25 Hep Bs Antibody 31.1 (11.5-1000) 10/29/21 03:25 Hep B Core Total Ab Non-reactive (Nonreactive) 10/29/21 03:25 Hepatitis C Antibody Non-reactive (Nonreactive) 10/29/21 03:25 HIV-1 RNA copies/mL 5.17 (NOT DETECTED) H 10/22/21 11:45 HIV-1 RNA (PCR) log10 649697 copies/mL (NOT DETECTED) H 10/22/21 11:45 Influenza Type A Ag Negative (Negative) 10/22/21 13:30 Influenza Type B Ag Negative (Negative) 10/22/21 13:30 Pneumocystis Source right middle lobe 10/22/21 17:15 Pneumocyst jiroveci PCR Not detected 10/22/21 17:15 SARS-CoV-2 (PCR) Not detected (NOT DETECT) 10/21/21 20:50 Beta-(1,3)-D-Glucan Cancelled 10/22/21 Unknown B-(1,3)-D-Glucan Intrp Cancelled 10/22/21 Unknown Misc Test Reference See comment 10/22/21 11:45 Vitals Last Vital Signs Temp 98.7 F 10/29/21 16:11 Pulse 93 10/29/21 16:11 Resp 21 H 10/29/21 16:11 BP 108/77 10/29/21 16:11 Pulse Ox 94 10/29/21 16:11 Discharge Plan Discharge Patient Disposition: Home Condition: Stable Prescriptions: New Biktarvy 50-200-25 mg tablet 1 tab PO DAILY 30 Days Qty: 30 1RF Augmentin 875-125 mg tablet 1 tab PO BID Qty: 6 0RF fluconazole 100 mg Tablet 100 mg PO DAILY Qty: 9 0RF nystatin 100,000 unit/mL Suspension 500,000 unit PO QID 14 Days Qty: 280 0RF metoprolol succinate 50 mg Tablet Extended Release 24 Hr 50 mg PO 0900,2100 Qty: 90 0RF Continued dapsone 100 mg tablet 100 mg PO DAILY 0RF torsemide 20 mg tablet 40 mg PO BID 0RF albuterol sulfate 90 mcg/actuation HFA aerosol inhaler 2 puff INHALATION Q4H PRN (Reason: Shortness Of Breath) 0RF sevelamer carbonate 800 mg tablet See Rx Instructions .ROUTE .COMPLEX 0RF Rx Instructions: 1600mg po with meals and 800mg po with snacks Entresto 24-26 mg tablet 1 tab PO BID 0RF albuterol sulfate 2.5 mg /3 mL (0.083 %) Solution For Nebulization 2.5 mg INHALATION QID PRN (Reason: Shortness Of Breath) 0RF Discontinued Tivicay 50 mg tablet 50 mg PO DAILY 0RF Prezcobix 800-150 mg-mg tablet 1 tab PO DAILY 0RF Rx Instructions: TAKE WITH FOOD Discharge Orders: Discharge Order (Routine); Ordered 10/29/21 Ordered By: Negro Rosado Referrals: Alex Whitley MD [Physician] - (Please follow-up with Dr. Whitley on at 11:15A.M. If you have any questions or need to reschedule. Please call ) Val Palmer MD [Hospitalist] - 2 weeks (I spoke with Martha at [facility], She will be calling you with an follow-up appointment with Dr. Palmer. If you haven't heard from her by Friday. Please call ) Yoly Hinojosa FNP [Nurse Practitioner] - 2 weeks (Please follow-up with Yoly Hinojosa on Nov.06 at 10:45A.M. If you have any questions or need to reschedule. Please call ) Shelbi Johnson MD [Physician] - 2 months (Your appointment with Dr. Johnson on Nov.06 has been cancelled. Your appointment has been reschedule on December 31 at 3:15P.M. If you have any questions. Please call ) Rebecca Montiel MD [Primary Care Provider] - 4-7 days (Please follow-up with Rebecca Montiel on Nov.07 at 10:20A.M. If you have any questions or need to reschedule. Please call ) Discharge Activity: Increase activity as tolerated Patient Instructions: Amoxicillin/Clavulanate Potassium (By mouth) (Augmentin, Augmentin..., Bictegravir/Emtricitabine/Tenofovir Alafenamide (By mouth) (Biktarvy), Heart Failure (GEN), Dilated Cardiomyopathy (GEN), Dialysis Diet (GEN), Pericardial Effusion (GEN), Bacterial Pneumonia (GEN), Post Angiogram Home Care Instructions Activity Restrictions/Additional Instructions: Please start taking Biktarvy for HIV. The medication should be available for you at the pharmacy tomorrow. Please follow-up with infectious disease doctor in office. When taking Biktarvy on dialysis days, take the first dose after completion of the hemodialysis. Complete antibiotic course for pneumonia. Please wear LifeVest at all times as your heart may be predisposed to abnormal heart rhythms which may be incompatible with life. LifeVest may administer shock in case it is one of the shockable rhythms to put your heart back into normal rhythm and prevent premature . Please follow-up with cardiology in office regarding nonischemic cardiomyopathy/congestive heart failure. Please resume hemodialysis and follow-up with nephrology specialist. Continue renal hemodialysis diet. Discharge Attestations Time Spent in Discharge Care*: greater than 30 min Status at Discharge: Cognitive status at discharge: cognitively intact, Behavioral status at discharge: cooperative, Quality Metrics Clinical Quality Measures [ No reported AMI, CVA or VTE this stay] Coding Level of Care Code Acute Chg FW DC note Diagnoses Pneumonia J18.9 Pneumonia type: due to unspecified organism Laterality: right Lung location: lower lobe of lung Cardiac arrest I46.9 Congestive heart disease I50.43 Heart failure type: combined systolic and diastolic Heart failure chronicity: acute on chronic ESRD (end stage renal disease) on dialysis N18.6; Z99.2 HIV (human immunodeficiency virus infection) B20 HIV symptom status: symptomatic
[2021-10-31 16:02] LABS: Aspergillus AG,EIA,Serum NOT DETECTED; Aspergillus Galactomannan Inde <0.50
== END 2021-10-29 16:30 | disposition home or self-care (01) | DRG 974 ==
LOC: ER 23:47 → ICU 10-22 01:01 → CSU 10-26 17:34
PROVIDERS: Emergency Medicine; Internal Medicine Cardiovascular Disease; Internal Medicine Nephrology; Internal Medicine Pulmonary Disease; Student in an Organized Health Care Education/Training Program; Admitting Provider Internal Medicine; Emergency Provider Physician Assistant; PCP Family Medicine; Visit Provider Internal Medicine
PROC: B211YZZ Fluoroscopy of Multiple Coronary Arteries using Other Contrast (ICD-10-PCS; principal; 2021-10-28 12:00)
DX: A41.9 Sepsis, unspecified organism (principal); R65.21 Severe sepsis with septic shock; B20 Human immunodeficiency virus [HIV] disease; J18.9 Pneumonia, unspecified organism; I50.23 Acute on chronic systolic (congestive) heart failure; N18.6 End stage renal disease; I46.9 Cardiac arrest, cause unspecified; J96.01 Acute respiratory failure with hypoxia; R18.8 Other ascites; E87.2 Acidosis; R04.2 Hemoptysis; I42.0 Dilated cardiomyopathy; Y95 Nosocomial condition; Z99.2 Dependence on renal dialysis; Z87.01 Personal history of pneumonia (recurrent); D63.1 Anemia in chronic kidney disease; Z85.47 Personal history of malignant neoplasm of testis; Z90.79 Acquired absence of other genital organ(s); Z92.21 Personal history of antineoplastic chemotherapy; B37.9 Candidiasis, unspecified; Z86.718 Personal history of other venous thrombosis and embolism; I08.1 Rheumatic disorders of both mitral and tricuspid valves; E87.5 Hyperkalemia; D69.59 Other secondary thrombocytopenia; Z79.899 Other long term (current) drug therapy; Z92.3 Personal history of irradiation; G47.30 Sleep apnea, unspecified
CPT/HCPCS: 36415; 36416; 36592; 36600; 51702; 70450; 71045; 71275; 74176; 80048; 80051; 80053; 80202; 80500; 82306; 82310; 82330; 82550; 82728; 82803; 82805; 82962; 83516; 83520; 83540; 83550; 83605; 83735; 83970; 84100; 84145; 84484; 85025; 85378; 86038; 86140; 86160; 86355; 86357; 86359; 86360; 86705; 86706; 86709; 86803; 87015; 87040; 87070; 87102; 87116; 87205; 87206; 87305; 87340; 87449; 87536; 87635; 87641; 87798; 87801; 87804; 88112; 89050; 90935; 93005; 93306; 93454; 93970; 94002; 94003; 94640; 94799; 96365; 96367; 96375; 97110; 97116; 97162; 97165; 97530; 99291; A4570; C1751; C1760; C1769; C1887; C1894; C9113; J0171; J0282; J0456; J1200; J1644; J1720; J1815; J2060; J2250; J2310; J2405; J2543; J2704; J2930; J3010; J3370; J3490; J7040; J7050; Q0163; Q3014; Q9967

== ENCOUNTER 2021-12-17 20:00 | Outpatient (CLI) | payer MEDICARE, MEDICAID, SELFPAY | END 2021-12-17 20:01 | disposition home or self-care (01) | LOC: SLEEP 12-18 07:53 | PROVIDERS: PCP Family Medicine; Visit Provider Family Medicine | DX: G47.30 Sleep apnea, unspecified (principal) | CPT/HCPCS: 95810 ==

== ENCOUNTER → 2021-12-27 10:21 | Outpatient (BNVA) | payer MEDICARE, MEDICAID, SELFPAY | PROVIDERS: PCP Family Medicine; Visit Provider Internal Medicine Pulmonary Disease | DX: J44.9 Chronic obstructive pulmonary disease, unspecified (principal); G47.30 Sleep apnea, unspecified; B20 Human immunodeficiency virus [HIV] disease; F17.210 Nicotine dependence, cigarettes, uncomplicated | CPT/HCPCS: 99214 ==

== ENCOUNTER → 2022-02-14 08:54 | Outpatient (BNVA) | payer MEDICARE, MEDICAID, SELFPAY | PROVIDERS: PCP Family Medicine; Visit Provider Internal Medicine Pulmonary Disease | DX: J44.9 Chronic obstructive pulmonary disease, unspecified (principal); G47.30 Sleep apnea, unspecified; B20 Human immunodeficiency virus [HIV] disease; T78.40XA Allergy, unspecified, initial encounter; Z87.891 Personal history of nicotine dependence; F12.10 Cannabis abuse, uncomplicated | CPT/HCPCS: 36415; 82784; 82785; 86003; 94060; 94726; 94729; 99214 ==

== ENCOUNTER 2022-02-14 12:00 | Outpatient (CLI) | payer MEDICARE, MEDICAID, SELFPAY ==
--- NOTE | 2022-02-14 14:28 | PFTS_ITS ---
Date of Study:02/14/22 Date of Dictation: MECHANICS: Forced vital capacity (FVC) is reduced. Forced expiratory volume in one second (FEV1) is normal. FEV1/FVC is normal. FLOW VOLUME LOOP: Normal. LUNG VOLUMES: Total lung capacity (TLC) is reduced. Residual volume (RV) is reduced. DIFFUSING CAPACITY FOR CARBON MONOXIDE: Normal. INTERPRETATION: The postbronchodilator spirometry is consistent with mild restriction. There is no significant postbronchodilator response. Please note there is a discrepancy in the patient's age that is provided on the raw data on the PFT. According to this document, he is 65 years old however it appears that the patient in fact is in his 30s. Lung volumes are consistent with mild restriction. Gas exchange (DLCO) is normal. MTDD
== END 2022-02-14 12:01 | disposition home or self-care (01) ==
PROVIDERS: PCP Family Medicine; Visit Provider Internal Medicine Pulmonary Disease
DX: J44.9 Chronic obstructive pulmonary disease, unspecified (principal)
CPT/HCPCS: 36415; 82784; 82785; 86003; 94060; 94726; 94729; 99214

== ENCOUNTER → 2022-04-04 14:56 | Outpatient (BNVA) | payer MEDICARE, MEDICAID, SELFPAY | PROVIDERS: PCP Family Medicine; Visit Provider Student in an Organized Health Care Education/Training Program | DX: B20 Human immunodeficiency virus [HIV] disease (principal) | CPT/HCPCS: 36415; 80053; 85025; 86355; 86357; 86359; 86360; 86592; 86780; 87536; 99213 ==

== ENCOUNTER 2022-05-08 20:00 | Outpatient (CLI) | payer MEDICARE, MEDICAID, SELFPAY | END 2022-05-08 20:01 | disposition home or self-care (01) | LOC: SLEEP 05-09 06:24 | PROVIDERS: PCP Family Medicine; Visit Provider Internal Medicine Pulmonary Disease | DX: G47.33 Obstructive sleep apnea (adult) (pediatric) (principal) | CPT/HCPCS: 95811 ==

== ENCOUNTER 2022-05-14 09:17 | Outpatient (CLI) | payer MEDICARE, MEDICAID, SELFPAY ==
--- NOTE | 2022-05-14 09:45 | CT_ITS ---
WS: [id number] Exam: CT chest con [id number] Date/Time of Exam: 05/14/2022 9:49 AM Reason For Exam: FOLLOW UP ON RESOLUTION OF R UPPER LOBE CONSOLIDATION DLP: 592.[address] scans at [facility] use at least one of these dose optimization techniques: automated e xposure control; mA and/or kV adjustment per patient size (includes targeted exams where dose is matc hed to clinical indication); or iterative reconstruction. Comparison 10/22/2021. Previously noted infiltrates in the middle and lower lobes the right lung have resolved. The lungs ar e bilaterally clear and fully inflated. No pleural effusion is seen. The trachea and mainstem bronch i are patent. The thoracic aorta is normal in caliber. No significant mediastinal or hilar lymphadeno jaret noted. An indwelling vascular catheter noted in the SVC. This ends near the cavoatrial junction . Small anterior pericardial effusion noted measuring about 9 mm at greatest thickness. An IVC filter is in place. Bilateral nonobstructing renal calculi are partially visualized. Several tiny bilateral renal cysts are noted. Several clips seen in the retroperitoneal area. Mild bilateral axillary lymph adenopathy noted. Nodes measure less than a centimeter greatest short axis dimension. Mild cardiac en largement. This shows significant improvement since the last exam. Unremarkable bony structures and c hest wall. CT/CT chest con [id number] IMPRESSION: 1. Resolved infiltrates in the middle and lower lobes of the right lung since p rior study. 2. Small anterior pericardial effusion measuring about 9 mm at greatest thickne ss. 3. Mild cardiac enlargement. Significant improvement since previous study. 4. Indwelling central line appearing to end near the cavoatrial junction. 5. Multiple nonobstructing bilateral renal stones. Tiny bilateral renal cysts.
== END 2022-05-14 09:18 | disposition home or self-care (01) ==
PROVIDERS: PCP Family Medicine; Visit Provider Internal Medicine Pulmonary Disease
DX: J18.1 Lobar pneumonia, unspecified organism (principal); I51.7 Cardiomegaly; I31.3 Pericardial effusion (noninflammatory); N20.0 Calculus of kidney; Q61.02 Congenital multiple renal cysts
CPT/HCPCS: 71250

== ENCOUNTER 2022-05-14 09:20 | Outpatient (CLI) | payer MEDICARE, MEDICAID, SELFPAY ==
--- NOTE | 2022-05-14 | USCV_ITS ---
Vivek Harden Age: 37 Gender: M : 1985 Exam Date: 05/14/2022 10:09 Ordering Phys: Shelbi Johnson MD ([email or web address]) Technologist: Sergei Baugh [place] [facility] [facility] [place]: Assess LV function BP: 120 / 82 HR: 56 Rhythm: Sinus Technical Quality: Adequate MEASUREMENTS (Male / Female) Normal Values 2D ECHO LV Diastolic Diameter PLAX 6.0 cm 4.2 - 5.9 / 3.9 - 5.3 cm LV Systolic Diameter PLAX 4.8 cm IVS Diastolic Thickness 0.9 cm 0.6 - 1.0 / 0.6 - 0.9 cm IVS Systolic Thickness 1.3 cm LVPW Diastolic Thickness 1.3 cm 0.6 - 1.0 / 0.6 - 0.9 cm LVPW Systolic Thickness 1.5 cm LVOT Diameter 2.1 cm LV Ejection Fraction 2D Teich 40.8 % LV Ejection Fraction MOD 2C 31.8 % LV Ejection Fraction 2C AL 32.7 % LA Diameter 4.2 cm LA Width 4.1 cm LA Height 4.5 cm RA Width 3.5 cm RA Height 4.5 cm Aorta at Sinotubular Diameter 2.5 cm IVC Diameter 1.6 cm M-MODE Aortic Annulus Diameter 2.8 cm LA Ao Ratio MM 1.5 MV E Point Septal Separation 1.5 cm DOPPLER Right Atrial Pressure 3.0 mmHg FINDINGS Left Ventricle Mildly increased left ventricular cavity size. Moderately decreased left ventricular systolic function. Left ventricular ejection fraction is estimated at 38 %. Moderate global left ventricular hypokinesis. Right Ventricle Normal right ventricular size and systolic function. Right Atrium Normal right atrial size. Left Atrium Moderately increased left atrial size. Mitral Valve Moderately thickened mitral valve. Aortic Valve Structurally normal trileaflet aortic valve. Tricuspid Valve Structurally normal tricuspid valve. Pulmonic Valve Pulmonic valve not well visualized. Pericardium No pericardial effusion. Aorta Normal size aortic root and proximal ascending aorta. IVC Normal IVC dimension with >50% respiratory change of the inferior vena cava. CONCLUSIONS 1. Mildly increased left ventricular cavity size. Moderately decreased left ventricular systolic function. Left ventricular ejection fraction is estimated at 38 %. Moderate global left ventricular hypokinesis. 2. Normal right ventricular size and systolic function. 3. When compared to previous study dated 09/2021, left ventricular systolic function seems to have improved. Shelbi Johnson MD (Electronically Signed) Final Date: 16 May 2022 16:42 S
== END 2022-05-14 09:21 | disposition home or self-care (01) ==
PROVIDERS: PCP Family Medicine; Visit Provider Internal Medicine Cardiovascular Disease
DX: R06.02 Shortness of breath (principal); Z95.810 Presence of automatic (implantable) cardiac defibrillator; I50.43 Acute on chronic combined systolic (congestive) and diastolic (congestive) heart failure
CPT/HCPCS: 93308

== ENCOUNTER 2022-10-21 19:17 | Inpatient (IN) | payer MEDICARE, MEDICAID, SELFPAY ==
[2022-10-21 19:20] VITALS: BP 157/98; PULSE 142; RESP 16; TEMP 36.7; O2SAT 96
--- NOTE | 2022-10-21 19:26 | ECG_ITS ---
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 Measurements Intervals [place]ale Rate: 142 P: 0 MA: 0 QRS: 27 QRSD: 87 T: 91 QT: 284 QTc: 437 Interpretive Statements ATRIAL FLUTTER WITH RAPID VENTRICULAR RESPONSE VOLTAGE CRITERIA FOR LVH [MEETS CRITERIA IN ONE OF: R(aVL), S(V1), R(V5), R(V5/V6)+S(V1)] NONSPECIFIC T-WAVE ABNORMALITY Compared to ECG 10/22/2021 03:46:59 Left ventricular hypertrophy now present Sinus tachycardia no longer present T-wave abnormality still present Electronically Signed On 10-22-2022 7:39:56 MARQUETRY WORKER by Elgin Lewis M.D. [id number]
--- NOTE | 2022-10-21 19:26 | XRR_ITS ---
PROCEDURE INFORMATION: Exam: XR Chest Exam date and time: 10/21/2022 7:29 PM Age: 37 years old Clinical indication: Angina and cough and dyspnea and fever and shortness of breath; Prior surgery; Surgery date: 6+ months; Surgery type: Port and dialysis port; Patient HX: Lymphoma and testicular cancer; Additional info: Cp TECHNIQUE: Imaging protocol: Radiologic exam of the chest. Views: 1 view. COMPARISON: CT chest con [id number] 05/14/2022 9:52 AM FINDINGS: Lungs: Mild venous congestion. Left lower lung patchy infiltrates are visualized. Right midlung infiltrates are also present. Pleural spaces: Unremarkable. No pleural effusion. No pneumothorax. Heart/Mediastinum: The heart is very large. Vasculature: Right IJ PermCath is in place. IVC filter. Bones/joints: Unremarkable. XR/XR chest 1V portable [id number] IMPRESSION: 1. Large heart with mild evidence of pulmonary edema. 2. Depi-ciuuvfm-rcqk-right patchy bibasilar atelectasis, edema, or developing pneumonia with small effusions. Findings have progressed from 05/14/2022. 3. No pneumothorax.
--- NOTE | 2022-10-21 19:38 | ED_ITS ---
HPI - Chest Pain General: Chief Complaint: Chest Pain Stated Complaint: Heart Beat Fast\SOB\Back Pain Time Seen by Provider: 10/21/22 19:30 History of Present Illness: This 37-year-old male with a history of end-stage renal disease on hemodialysis, COPD, HIV and congestive heart failure, presents to the ER with palpitations that started earlier today. Patient notes that he feels like his heart is beating out of his chest. He was seen at his primary care provider's office earlier today when they told him that his EKG was abnormal . Patient complains of pain in the left mid back that is worsened by movement. In addition he has cough that is productive of brownish mucus. He reportedly had a temperature of 100+ at his primary care physician's office. He is clinically stable. Associated symptoms: Reports palpitations Review of Systems Const: Denies: chills, body aches or change in appetite Eyes: Denies: change in vision or eye discharge ENMT: Denies: throat pain, dental pain or nasal discharge Card: Reports: palpitations, irregular heart rhythm and other (Pain left mid back.) : Denies: dysuria Musc: Denies: neck pain or back pain Neuro: Denies: headache(s) or weakness in extremities Psych: Denies: depression Wilver/Lymph: Denies: easy bruising All/Imm: Denies: urticaria, tongue swelling or facial swelling PFSH ED PFSH: Medical History Anemia in chronic kidney disease AV fistula Cardiac arrest ESRD (end stage renal disease) on dialysis Hemoptysis History of chemotherapy History of testicular cancer HIV carrier Hyperkalemia Shortness of breath Sleep apnea Tachycardia Surgical History History of orchiectomy, unilateral History of removal of Port-a-Cath S/P hemodialysis catheter insertion (11/30/20) R IJ catheter exchange S/P laparotomy Lymph node biopsy Family History Denies family history of Anesthesia complication Bleeding disorder Social History Smoking and tobacco status: former smoker Alcohol intake: never Adopted: No Caregiver/support person: Yes Lives independently: Yes Housing: House Current occupational status: disabled Pets and animals: No Sexually active: Yes Current gender identity: Male Josefa/Scientology: Voodoo Physical Exam Const: COMMON NORMALS: no acute distress, patient oriented x3, no limitations and alert HENMT: COMMON NORMALS: normocephalic HEAD & SCALP: normocephalic Eye: COMMON NORMALS: EOMs intact bilaterally Neck/C-Spine: COMMON NORMALS: full ROM and supple Chest: OTHER: Presence of dialysis catheter right anterior chest wall. Tenderness left posterior chest wall. No redness, swelling or sign of trauma/infection. Resp: COMMON NORMALS: normal respiratory effort, No retractions, No use of accessory muscles and clear to auscultation bilaterally AUSCULTATION: clear to auscultation bilaterally Cardio: COMMON NORMALS: No murmurs present (Cardio) RATE: tachycardic RHYTHM: abnormal rhythm irregularly irregular GI: COMMON NORMALS: Normal to inspection, nondistended, normoactive bowel sounds present and non-tender : COMMON NORMALS: Yes no CVA tenderness BLADDER/KIDNEY EXAM: Yes no CVA tenderness Back/Pelvis: COMMON NORMALS: no CVA tenderness and no thoracic nor lumbar tenderness Extremity: GENERAL: Yes normal exam except as noted Neuro: COMMON NORMALS: patient oriented x3 and no focal motor deficits SENSORIUM/ORIENTATION: Yes alert Psych: COMMON NORMALS: mental status grossly normal and cooperative Course Consultations: Consultation #1: Case discussed with Dr. Palmer, hospitalist on-call. She accepted patient for admission. Vital Signs: Vital signs: Vital Signs Temperature 98.0 F 10/21/22 19:20 Pulse Rate 142 H 10/21/22 19:20 Respiratory Rate 16 10/21/22 19:20 Blood Pressure 157/98 10/21/22 19:20 Pulse Oximetry 96 10/21/22 19:20 Oxygen Delivery Me thod 10/21/22 19:20 MDM - Chest Pain Medical Decision Making Medical decision making: History as above. Patient has A. fib with rapid ventricular response. He received IV Cardizem and is currently on a Cardizem drip. In addition, he has end-stage renal disease and is supposed to have renal dialysis tomorrow. He was accepted by hospitalist for admission for further treatment. Lab Data 10/21/22 19:35 10/21/22 19:35 Radiology Impressions Chest X-Ray 10/21/22 19:26 IMPRESSION: 1. Large heart with mild evidence of pulmonary edema. 2. Jnhk-zozzumv-warx-right patchy bibasilar atelectasis, edema, or developing pneumonia with small effusions. Findings have progressed from 05/14/2022. 3. No pneumothorax. Laboratory Results WBC 10.6 10^3/uL (4.0-10.0) H 10/21/22 19:35 RBC 3.77 10^6/uL (4.1-5.3) L 10/21/22 19:35 Hgb 10.8 g/dL (11.7-16.6) L 10/21/22 19:35 Hct 33.8 % (42.0-52.0) L 10/21/22 19:35 MCV 89.7 fl (80-94) 10/21/22 19:35 MCH 28.6 pg (28.0-34.0) 10/21/22 19:35 MCHC 32.0 g/dL (30.0-36.0) 10/21/22 19:35 RDW 15.5 % (12.1-15.1) H 10/21/22 19:35 Plt Count 162 10^3/cmm (130-400) 10/21/22 19:35 MPV 11.0 fL (7.4-10.4) H 10/21/22 19:35 Neut % (Auto) 83.8 % 10/21/22 19:35 Lymph % (Auto) 10.1 % 10/21/22 19:35 [place] % (Auto) 5.3 % 10/21/22 19:35 Eos % (Auto) 0.0 % 10/21/22 19:35 Baso % (Auto) 0.1 % 10/21/22 19:35 Neut # (Auto) 8.88 10^3/uL (1.8-7.7) H 10/21/22 19:35 Lymph # (Auto) 1.1 10^3/uL (0.8-4.8) 10/21/22 19:35 [place] # (Auto) 0.6 10^3/uL (0.2-0.9) 10/21/22 19:35 Eos # (Auto) 0.0 10^3/uL (0.0-0.8) 10/21/22 19:35 Baso # (Auto) 0.0 10^3/uL (0.0-0.1) 10/21/22 19:35 Nucleated RBC % (auto) 0 % 10/21/22 19:35 Nucleated RBCs # 0.0 /100WBC 10/21/22 19:35 PT 17.20 SECONDS (12.1-14.9) H 10/21/22 19:35 INR 1.37 (0.8-1.2) H 10/21/22 19:35 D-Dimer 9.14 ug/mIFEU (0-0.59) H 10/21/22 19:35 Sodium 131 mmol/L (136-145) L 10/21/22 19:35 Potassium 6.1 mmol/L (3.5-5.1) H 10/21/22 19:35 Chloride 89 mmol/L (98-107) L 10/21/22 19:35 Carbon Dioxide 25 mmol/L (22-29) 10/21/22 19:35 Anion Gap 23.1 (5-19) H 10/21/22 19:35 BUN 58 mg/dL (6-20) H 10/21/22 19:35 Creatinine 13.3 mg/dL (0.7-1.2) H* 10/21/22 19:35 GFR Calculation 5.1 mL/min (90-130) L 10/21/22 19:35 Glucose 120 mg/dL (65-115) H 10/21/22 19:35 Calculated Osmolality 289 mOsm/kg (285-295) 10/21/22 19:35 Calcium 10.3 mg/dL (8.5-10.5) 10/21/22 19:35 Total Bilirubin 1.3 mg/dL (0.15-1.2) H 10/21/22 19:35 AST 47 U/L (0-40) H 10/21/22 19:35 ALT 32 U/L (0-41) 10/21/22 19:35 Alkaline Phosphatase 69 U/L (40-130) 10/21/22 19:35 Troponin T Baseline 136 ng/L (0-15) H* 10/21/22 19:35 NT-Pro-B Natriuret Pep > 66792 pg/mL (0-125) H 10/21/22 19:35 Total Protein 8.1 g/dL (6.6-8.7) 10/21/22 19:35 Albumin 4.1 g/dL (3.5-5.2) 10/21/22 19:35 Globulin 4.0 g/dL (1.3-4.6) 10/21/22 19:35 EKG Data EKG 1: Interpretation: Atrial flutter, rate of 142, normal axis, nonspecific T wave changes, no STEMI EKG 2: Interpretation: Atrial flutter, rate of 139, nonspecific T wave changes, no acute STEMI. Discharge Plan Discharge Patient Disposition: Admitted As Inpatient Clinical Impression: ESRD (end stage renal disease) on dialysis, HIV (human immunodeficiency virus infection), Congestive heart disease, Atrial fibrillation with rapid ventricular response Condition: Stable Coding Level of Care Code ED Medical Billing Service for Chg Fwd Exam Comprehensive
[2022-10-21 19:43] LABS: Basophils % 0.1 %; Hematocrit 33.8 % (42.0-52.0); Hemoglobin 10.8 g/dL (11.7-16.6); Lymphocytes # 1.1 10^3/uL (0.8-4.8); Lymphocytes % 10.1 %; Mean Corpuscular Hemoglobin 28.6 pg (28.0-34.0); Mean Corpuscular Volume 89.7 fl (80-94); Monocytes # 0.6 10^3/uL (0.2-0.9); Monocytes % 5.3 %; Neutrophils # 8.88 10^3/uL (1.8-7.7); Neutrophils % 83.8 %; Nucleated Red Blood Cells % 0 %; Platelet Count 162 10^3/cmm (130-400); Red Blood Count 3.77 10^6/uL (4.1-5.3); Red Cell Distribution Width 15.5 % (12.1-15.1); White Blood Count 10.6 10^3/uL (4.0-10.0)
[2022-10-21] MEDS: dilTIAZem 5 mg/mL SDV 5 mL 20 MG IVP ×2 (19:55→21:10)
[2022-10-21 19:56] LABS: INR 1.37 (0.8-1.2)
--- NOTE | 2022-10-21 20:03 | PC.NURSE ---
Went to ask pt for urine collection. Reported he couldnt urinate and that he only urinates about once a day because of dialysis. notified
[2022-10-21 20:06] LABS: D Dimer 9.14 ug/mIFEU (0-0.59)
[2022-10-21 20:18] LABS: Alanine Aminotransferase 32 U/L (0-41); Albumin Level 4.1 g/dL (3.5-5.2); Alkaline Phosphatase 69 U/L (40-130); Anion Gap 23.1 (5-19); Aspartate Amino Transferase 47 U/L (0-40); Blood Urea Nitrogen 58 mg/dL (6-20); Calcium 10.3 mg/dL (8.5-10.5); Carbon Dioxide 25 mmol/L (22-29); Chloride 89 mmol/L (98-107); Glomerular Filtration Rate 5.1 mL/min (90-130); Glucose 120 mg/dL (65-115); Osmolality Calculated 289 mOsm/kg (285-295); Potassium 6.1 mmol/L (3.5-5.1); Sodium 131 mmol/L (136-145); Total Bilirubin 1.3 mg/dL (0.15-1.2); Total Protein 8.1 g/dL (6.6-8.7)
[2022-10-21 20:25] LABS: Troponin(5th) Baseline 136 ng/L (0-15)
[2022-10-21 20:30] VITALS: BP 138/94; PULSE 137; RESP 29; O2SAT 91
[2022-10-21 20:45] LABS: NT Pro B Type Natriuretic Pept > 70000 pg/mL (0-125)
--- NOTE | 2022-10-21 21:09 | ECG_ITS ---
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 Measurements Intervals [place] Rate: 139 P: 0 MN: 0 QRS: 48 QRSD: 84 T: 87 QT: 278 QTc: 423 Interpretive Statements SINUS TACHYCARDIA VOLTAGE CRITERIA FOR LVH [MEETS CRITERIA IN ONE OF: R(aVL), S(V1), R(V5), R(V5/V6)+S(V1)] NONSPECIFIC T-WAVE ABNORMALITY Compared to ECG 10/21/2022 19:23:35 No significant changes Electronically Signed On 10-22-2022 7:48:37 FINAL ASSEMBLER BOAT by Shelbi Johnson M.D. [id number]
[2022-10-21] MEDS: morphine 4 mg/mL SDV 1 mL IVP (21:13)
[2022-10-21 21:30] VITALS: BP 130/96; PULSE 133; RESP 24; O2SAT 94
[2022-10-21] MEDS: ondansetron 2 mg/ML SDV 2 mL 4 MG IVP (21:35)
[2022-10-21] MEDS: insulin regular-human 100 units/1 mL 10 UNIT IVP (21:36)
[2022-10-21] MEDS: sodium polystyrene sulfonate 15 gm/60 mL Btl PO (21:36)
[2022-10-21] MEDS: calcium gluconate 0.9% NaCL 1 GM/50 ML PREMIX IV (21:36)
[2022-10-21 22:30] VITALS: BP 128/92; PULSE 113; RESP 31; O2SAT 92
[2022-10-21] MEDS: dilTIAZem 100 MG in sodium chloride 0.9% (add-van) 100 ML IV (22:39)
[2022-10-21 23:00] LABS: Troponin 5 2HR 134.2 ng/L (0-15); Troponin 5 2HR Delta -1.8 ABS# (0-10)
--- NOTE | 2022-10-21 23:05 | CTR_ITS ---
PROCEDURE INFORMATION: Exam: CT Chest Without Contrast; Diagnostic Exam date and time: 10/22/2022 12:09 AM Age: 37 years old Clinical indication: Prior surgery; Surgery type: Dialysis cath. [place] filter. Patient HX: Cough with left pleural effusion. History of lymphoma and testicular cancer. ; Additional info: Evaluate for pneumonia, pleural effusion TECHNIQUE: Imaging protocol: Diagnostic computed tomography of the chest without contrast. Radiation optimization: All CT scans at this facility use at least one of these dose optimization techniques: automated exposure control; mA and/or kV adjustment per patient size (includes targeted exams where dose is matched to clinical indication); or iterative reconstruction. COMPARISON: CT chest con [id number] 05/14/2022 9:52 AM RADIATION DOSE METRICS: Total DLP (mGy-cm): 251.84 FINDINGS: Tubes, catheters and devices: Right IJ line in place. Lungs: Left mid to lower lung, mainly LLL, patchy airspace disease. Other areas of tppya-ltliaqh-pdqs-left lung base atelectasis or airspace disease. Pleural spaces: Trace bilateral pleural effusions. No pneumothorax. Heart: Heart is very large. Coronary arteries: There is no definite coronary artery calcification noted. Lymph nodes: Mild likely reactive bilateral hilar and mediastinal lymphadenopathy. Vasculature: Advanced diffuse vascular calcification noted. IVC filter. Mild venous congestion with diffuse hazy edema. Liver: Large liver. Kidneys and ureters: A few right renal cysts. Bones/joints: No acute fracture. Soft tissues: Unremarkable. CT/CT chest con [id number] IMPRESSION: 1. Large heart with mild evidence of CHF or positive fluid balance. 2. Ouol-hqiteel-bnub-right bilateral lower lobe atelectasis or developing pneumonia, especially in the LLL. 3. Trace pleural effusions. 4. Other findings above. Recommend 2 month follow-up. The findings have progressed markedly from 05/14/2022. COMMENTS: Consistent with the [employer]'s Incidental Findings Committee white paper (J Am Deb Radiol 2018): Any incidental renal lesion less than 1 cm or classified as too small to characterize, or any incidental cystic renal lesion characterized as simple-appearing, is likely benign. No follow-up imaging is recommended for these lesions per consensus recommendations based on imaging criteria.
--- NOTE | 2022-10-21 23:19 | P.HP_ITS ---
Providers/Chief Complaint Primary Care Provider: Rebecca Montiel MD Chief Complaint: Heart Beat Fast\SOB\Back Pain History of Present Illness Vivek Harden is a 37 year old male ?with past medical history of , HIV on Biktarvy ,HFrE last EF 38 % (imprved from 22%), non ischemic cardiomyopathy, ? end-stage renal disease dialysis dependent Friday, history of testicular cancer HENRY currently , was admitted with chief complaint of fever, sore throat and productive cough for which he visited with his PCP earlier today where he was noted to be tachycardiac with HR 140-170 and EKG /so A flutter. He was sent to the ER where he was found to have A fib with RVR with HR 170 initially. Received few pushes of cardizem and has been started on cardizem gtt at 10mg/hr currently. CXR shows LLL infiltrate, cardiomegaly. Review of Systems General: Reports: 10 or more systems reviewed and unremarkable except in HPI and below Const: Denies: fever(s), chills or body aches Eyes: Denies: change in vision, blurry vision or photophobia ENMT: Reports: hoarseness; Denies: throat pain, enlarged tonsils, odynophagia or nasal congestion Card: Denies: chest pain, palpitations, irregular heart rhythm, edema, swelling of feet/ankles, lightheadedness, pre-syncope, dyspnea on exertion or orthopnea Resp: Denies: dyspnea, productive cough, non-productive cough, wheezing, stridor, pain on inspiration, change in phlegm color, hemoptysis or chest congestion GI: Denies: abdominal pain, nausea, vomiting, hematemesis, coffee ground emesis, dysphagia, heartburn, diarrhea, constipation, GI cramping, change in stool character, hematochezia or melena : Denies: flank pain, dysuria, urinary frequency, urinary urgency, urinary hesitancy or hematuria Musc: Denies: neck pain, back pain, extremity pain, joint swelling, joint warmth or deformity Neuro: Denies: headache(s), numbness in extremities, weakness in extremities, sensory changes, difficulty walking, frequent falls, dizziness, vertigo, behavioral changes, Slurred speech present or seizure-like activity Psych: Denies: anxiety, depression, suicidal ideation or homicidal ideation Endo: Denies: polyuria, polydipsia, tired all the time, cold intolerance or hot flashes Wilver/Lymph: Denies: easy bruising or easy bleeding Medications/Allergies Home Medications Medication Instructions Recorded Confirmed Last Taken Type sevelamer carbonate 800 mg tablet See Rx Instructions .Route .COMPLEX 10/22/21 10/21/22 Unknown History albuterol sulfate 90 mcg/actuation 2 puff inhalation Q4H PRN 11/13/21 10/21/22 Unknown Rx aerosol inhaler Shortness Of Breath #6.7 grams valacyclovir 500 mg tablet 500 mg PO DAILY PRN shingles 10 11/13/21 10/21/22 Unknown Rx (Valtrex) days #10 tabs sacubitril 24 mg-valsartan 26 mg 1 tab PO BID #60 tabs 02/04/22 10/21/22 Unknown Rx tablet (Entresto) ivabradine 7.5 mg tablet 7.5 mg PO BID #180 tabs 02/14/22 10/21/22 Unknown Rx metoprolol succinate 100 mg 100 mg PO BID #180 tabs 02/14/22 10/21/22 Unknown Rx tablet,extended release 24 hr torsemide 100 mg tablet 100 mg PO DAILY #90 tabs 02/14/22 10/21/22 Unknown Rx torsemide 20 mg tablet 20 mg PO DAILY #90 tabs 02/14/22 10/21/22 Unknown Rx fluticasone fur. 100 mcg-umeclid 1 inh inhalation DAILY #60 ea 02/18/22 10/21/22 Unknown Rx 62.5 mcg-vilant 25 mcg inhalat.powder (Trelegy Ellipta) montelukast 10 mg tablet 10 mg PO DAILY #30 tabs 02/18/22 10/21/22 Unknown Rx (Singulair) bictegravir 50 mg-emtricitabine 1 tab PO DAILY 30 days #30 tabs 04/04/22 10/21/22 Unknown Rx 200 mg-tenofovir alafenam 25 mg tablet (Biktarvy) penicillin G benzathine 2,400,000 2.4 mmu (4 mL) IM .weekly 3 weeks 04/18/22 10/21/22 Unknown Rx unit/4 mL intramuscular syringe #4 mL sulfamethoxazole 400 1 tab PO .monwedfri 90 days #60 04/18/22 10/21/22 Unknown Rx mg-trimethoprim 80 mg tablet tabs (Bactrim) Cpap mask, tubing, and supplies #1 ea 07/15/22 10/21/22 Unknown Rx cpap machine #1 ea 07/17/22 10/21/22 Unknown Rx Allergies Allergy/AdvReac Type Severity Reaction Status Date / Time acetaminophen Allergy Severe ALGY-Hives Verified 10/21/22 08:29 Iodinated Contrast Media Allergy Unknown Verified 10/21/22 08:29 PFSH Acute PFSH: Medical History Anemia in chronic kidney disease AV fistula Cardiac arrest ESRD (end stage renal disease) on dialysis Hemoptysis History of chemotherapy History of testicular cancer HIV carrier Hyperkalemia Shortness of breath Sleep apnea Tachycardia Surgical History History of orchiectomy, unilateral History of removal of Port-a-Cath S/P hemodialysis catheter insertion (11/30/20) R IJ catheter exchange S/P laparotomy Lymph node biopsy Family History Denies family history of Anesthesia complication Bleeding disorder Social History Smoking and tobacco status: former smoker Alcohol intake: never Adopted: No Caregiver/support person: Yes Lives independently: Yes Housing: House Current occupational status: disabled Pets and animals: No Sexually active: Yes Current gender identity: Male Josefa/Zoroastrian: Anabaptist Vitals/I&O/Wt Last Vital Signs Temp 98.0 F 10/21/22 19:20 Pulse 142 H 10/21/22 19:20 Resp 16 10/21/22 19:20 BP 157/98 10/21/22 19:20 Pulse Ox 96 10/21/22 19:20 O2 Del Method 10/21/22 19:20 10/21/22 10/21/22 10/22/22 14:59 22:59 06:59 Intake Total 100 / 100 Balance 100 / 100 Weight last 48 hrs Weight 66.678 kg Physical Exam Narrative: General: No acute distress, AO x3 HEENT: PERRLA, pupils bilaterally equal and reactive, pallors not present Chest: reduced air entry LLL CVS: S1-S2 regular, no murmurs, no tachycardia, no gallops, no rubs Abdomen: Soft, nontender, no organomegaly, bowel sounds present Neuro: No focal deficits, no facial deformity, AO x3, power 5/5 in all limbs Data 10/21/22 19:35 10/21/22 19:35 Other Labs: Launch?[employer] [address] [facility] [facility] [place] [address] XRay Report Signed Patient: Vivek Harden Unit #: [id number] : 1985 Age/Sex: 37 / M ADM Date: 10/21/22 Loc: ER Room/Bed: Attending Dr: Ordering Provider/Ordering MD: Renee Dsouza MD Date of Service: 10/21/22 Procedure(s): XR chest 1V portable [id number] Accession Number(s): [id number] Report Number: [id number] PROCEDURE INFORMATION: Exam: XR Chest Exam date and time: 10/21/2022 7:29 PM Age: 37 years old Clinical indication: Angina and cough and dyspnea and fever and shortness of breath; Prior surgery; Surgery date: 6+ months; Surgery type: Port and dialysis port; Patient HX: Lymphoma and testicular cancer; Additional info: Cp TECHNIQUE: Imaging protocol: Radiologic exam of the chest. Views: 1 view. COMPARISON: CT chest [facility] [id number] 05/14/2022 9:52 AM FINDINGS: Lungs: Mild venous congestion. Left lower lung patchy infiltrates are visualized. Right midlung infiltrates are also present. Pleural spaces: Unremarkable. No pleural effusion. No pneumothorax. Heart/Mediastinum: The heart is very large. Vasculature: Right IJ PermCath is in place. IVC filter. Bones/joints: Unremarkable. XR/XR chest 1V portable [id number] IMPRESSION: 1. Large heart with mild evidence of pulmonary edema. 2. Gjjd-knjikes-fntq-right patchy bibasilar atelectasis, edema, or developing pneumonia with small effusions. Findings have progressed from 05/14/2022. 3. No pneumothorax. A&P Assessment and plan (1) Atrial fibrillation with rapid ventricular response: New onset per review of notes and priro EKG initial rhythm reported to be A flutter currenty on cardizem infusion @10mg/hr Will resume home dose metoprolol 100mg BID and start metorpolol 5mg iv q4h prn Cotinue home dose of ivabradine May be precipitated by pneumonia currently He has a past h/o NICMP, EF improved to 38% from 22% in sep 2021. (2) Pneumonia: LLL infiltrate on CXR, symptoms reportsed as fever and cough start emprici rx with CTX and Azithromycin for community acquire dpneumonia saturating well on RA currently (3) Congestive heart disease: continue torsemide Planned HD (4) ESRD (end stage renal disease) on dialysis: Nephrology consult to maintain HD inpatient (5) HIV (human immunodeficiency virus infection): rm carter Last VL zero from 03/2022 ; Cd4 count 97 Check VL and CD4 count today continue bactrim ppx for PJP, will d/c if CD4 recovered to >200 (6) Hyperkalemia: received kayexalate, insulin/dextrose and ca gluconate in the ER. Attestations Medical Necessity Statement*: > 2 midnight admission anticipated for rate control, iv cardizem, iv abx Coding Level of Care Code Acute Code for [facility] Fwd Diagnoses Atrial fibrillation with rapid ventricular response I48.91 Pneumonia J18.9 Congestive heart disease I50.9 ESRD (end stage renal disease) on dialysis N18.6; Z99.2 HIV (human immunodeficiency virus infection) B20 Hyperkalemia E87.5
[2022-10-21 23:30] VITALS: BP 126/87; PULSE 112; RESP 22; O2SAT 100
[2022-10-21 23:44] LABS: Magnesium 2.4 mg/dL (1.7-2.3)
[2022-10-22] VITALS (21 sets, daily range): BP systolic 99–132; BP diastolic 69–98; PULSE 82–116; RESP 17–34; TEMP 35.6–37.1; O2SAT 89–100
[2022-10-22] MEDS: cefTRIAXone 1,000 MG in sodium chloride 0.9% (plus) 50 ML 100 MG IV ×2 (00:25→23:42)
[2022-10-22] MEDS: heparin 5,000 unit/mL INJ 1 mL 5000 UNIT SUBCUT ×3 (00:25→23:46)
[2022-10-22] MEDS: azithromycin 250 mg Tablet 500 MG PO ×2 (00:26→08:37)
[2022-10-22 01:29] LABS: Adenovirus Not Detected (NOT DETECT); Chlamydia Pneumoniae Not Detected (NOT DETECT); Coronavirus 229E,HKU1,NL63,OC4 Not Detected (NOT DETECT); Human Metapneumovirus Not Detected (NOT DETECT); Human Rhinovirus/Enterovirus Not Detected (NOT DETECT); Influenza A Not Detected (NOT DETECT); Influenza A H1 Not Detected (NOT DETECT); Influenza A H1-2009 Not Detected (NOT DETECT); Influenza A H3 Not Detected (NOT DETECT); Influenza B Not Detected (NOT DETECT); Mycoplasma Pneumoniae Not Detected (NOT DETECT); Parainfluenza Virus Type 1 Not Detected (NOT DETECT); Parainfluenza Virus Type 2 Not Detected (NOT DETECT); Parainfluenza Virus Type 3 Not Detected (NOT DETECT); Parainfluenza Virus Type 4 Not Detected (NOT DETECT); Respiratory Syncytial Virus A Not Detected (NOT DETECT); Respiratory Syncytial Virus B Not Detected (NOT DETECT); SARS-COV-2 Not Detected (NOT DETECT)
--- NOTE | 2022-10-22 02:19 | ECG_ITS ---
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 Measurements Intervals [place] Rate: 107 P: 75 IN: 163 QRS: 9 QRSD: 82 T: 91 QT: 340 QTc: 454 Interpretive Statements SINUS TACHYCARDIA LEFT ATRIAL ENLARGEMENT [-0.15mV P-WAVE IN V1/V2] POSSIBLE LEFT VENTRICULAR HYPERTROPHY [VOLTAGE CRITERIA PLUS LAE OR QRS WIDENING] NONSPECIFIC T-WAVE ABNORMALITY Compared to ECG 10/21/2022 21:09:25 Atrial abnormality now present Atrial flutter no longer present T-wave abnormality still present Electronically Signed On 10-22-2022 7:48:09 MACHINE PRESSER by Elgin Lewis M.D. [id number]
[2022-10-22] MEDS: ondansetron 2 mg/ML SDV 2 mL 4 MG IVP (04:17)
[2022-10-22 04:29] LABS: Basophils % 0.2 %; Hematocrit 32.4 % (42.0-52.0); Hemoglobin 10.3 g/dL (11.7-16.6); Lymphocytes % 11.4 %; Mean Corpuscular HGB Conc 31.8 g/dL (30.0-36.0); Mean Corpuscular Hemoglobin 28.9 pg (28.0-34.0); Mean Corpuscular Volume 90.8 fl (80-94); Monocytes # 0.5 10^3/uL (0.2-0.9); Monocytes % 5.6 %; Neutrophils # 6.96 10^3/uL (1.8-7.7); Neutrophils % 82.3 %; Nucleated Red Blood Cells % 0 %; Platelet Count 153 10^3/cmm (130-400); Red Blood Count 3.57 10^6/uL (4.1-5.3); Red Cell Distribution Width 15.4 % (12.1-15.1); White Blood Count 8.5 10^3/uL (4.0-10.0)
[2022-10-22 04:58] LABS: Alanine Aminotransferase 44 U/L (0-41); Alkaline Phosphatase 67 U/L (40-130); Anion Gap 27.7 (5-19); Aspartate Amino Transferase 57 U/L (0-40); Blood Urea Nitrogen 64 mg/dL (6-20); Calcium 9.6 mg/dL (8.5-10.5); Carbon Dioxide 24 mmol/L (22-29); Chloride 89 mmol/L (98-107); Globulin 3.8 g/dL (1.3-4.6); Glucose 109 mg/dL (65-115); Osmolality Calculated 297 mOsm/kg (285-295); Sodium 134 mmol/L (136-145); Total Bilirubin 0.8 mg/dL (0.15-1.2); Total Protein 7.8 g/dL (6.6-8.7)
[2022-10-22 05:00] LABS: Lactic Sepsis W/Reflex 1.7 mmol/L (0.5-2.2)
[2022-10-22 06:05] LABS: Potassium 6.7 mmol/L (3.5-5.1); Troponin 5 6HR 136.9 ng/L (0-15); Troponin 5 6HR Delta 0.9 ng/L (0-12)
--- NOTE | 2022-10-22 06:22 | PM.CONSULT ---
Providers/Reason For Consult Consulting Physician/Specialty*: Sabrina Michael DO, telenephrology Reason for Consult*: ESRD Requesting Physician: Val Palmer MD Attending Physician: Val Palmer MD Primary Care Provider: Rebecca Montiel MD History of Present Illness History of Present Illness Vivek Harden is a 37 year old male presented for evaluation of tachycardia and dyspnea. ESRD, HD T//S. Recently using PC; AVF had recent intervention. Medications/Allergies Home Medications Medication Instructions Recorded Confirmed Last Taken Type sevelamer carbonate 800 mg tablet See Rx Instructions .Route .COMPLEX 10/22/21 10/21/22 Unknown History albuterol sulfate 90 mcg/actuation 2 puff inhalation Q4H PRN 11/13/21 10/21/22 Unknown Rx aerosol inhaler Shortness Of Breath #6.7 grams valacyclovir 500 mg tablet 500 mg PO DAILY PRN shingles 10 11/13/21 10/21/22 Unknown Rx (Valtrex) days #10 tabs sacubitril 24 mg-valsartan 26 mg 1 tab PO BID #60 tabs 02/04/22 10/21/22 Unknown Rx tablet (Entresto) ivabradine 7.5 mg tablet 7.5 mg PO BID #180 tabs 02/14/22 10/21/22 Unknown Rx metoprolol succinate 100 mg 100 mg PO BID #180 tabs 02/14/22 10/21/22 Unknown Rx tablet,extended release 24 hr torsemide 100 mg tablet 100 mg PO DAILY #90 tabs 02/14/22 10/21/22 Unknown Rx torsemide 20 mg tablet 20 mg PO DAILY #90 tabs 02/14/22 10/21/22 Unknown Rx fluticasone fur. 100 mcg-umeclid 1 inh inhalation DAILY #60 ea 02/18/22 10/21/22 Unknown Rx 62.5 mcg-vilant 25 mcg inhalat.powder (Trelegy Ellipta) montelukast 10 mg tablet 10 mg PO DAILY #30 tabs 02/18/22 10/21/22 Unknown Rx (Singulair) bictegravir 50 mg-emtricitabine 1 tab PO DAILY 30 days #30 tabs 04/04/22 10/21/22 Unknown Rx 200 mg-tenofovir alafenam 25 mg tablet (Biktarvy) penicillin G benzathine 2,400,000 2.4 mmu (4 mL) IM .weekly 3 weeks 04/18/22 10/21/22 Unknown Rx unit/4 mL intramuscular syringe #4 mL sulfamethoxazole 400 1 tab PO .monwedfri 90 days #60 04/18/22 10/21/22 Unknown Rx mg-trimethoprim 80 mg tablet tabs (Bactrim) Cpap mask, tubing, and supplies #1 ea 07/15/22 10/21/22 Unknown Rx cpap machine #1 ea 07/17/22 10/21/22 Unknown Rx Allergies Allergy/AdvReac Type Severity Reaction Status Date / Time acetaminophen Allergy Severe ALGY-Hives Verified 10/21/22 08:29 Iodinated Contrast Media Allergy Unknown Verified 10/21/22 08:29 Current Medications Generic Name Dose Route Start Last Admin Trade Name Freq PRN Reason Stop Dose Admin Azithromycin 500 mg 10/21/22 23:10 10/22/22 00:26 Azithromycin 250 Mg Tablet PO 10/24/22 23:09 500 mg DAILY MIGUEL Administration Protocol Heparin Sodium (Porcine) 5,000 unit 10/21/22 23:30 10/22/22 00:25 Heparin 5,000 Unit/Ml Inj 1 Ml SUBCUT 5,000 unit Q12H MIGUEL Administration Diltiazem HCl 100 mg/ Sodium 100 mls @ 0 mls/hr 10/21/22 21:45 10/22/22 00:00 Chloride IV 10 mg/hr .Q0M MIGUEL 10 mls/hr Titration Protocol Per Protocol Ceftriaxone Sodium 1,000 mg/ 50 mls @ 100 mls/hr 10/21/22 23:30 10/22/22 00:55 Sodium Chloride IV Infused Q24H MIGUEL Infusion Protocol Ondansetron HCl 4 mg 10/21/22 23:05 10/22/22 04:17 Ondansetron 2 Mg/Ml Sdv 2 Ml IVP 4 mg Q8H PRN Administration vomiting, or N/V if npo Sevelamer Carbonate 1,600 mg 10/21/22 23:15 10/22/22 02:23 Sevelamer 800 Mg Tablet PO Not Given TIDWM MIGUEL PFSH Acute PFSH: Medical History Anemia in chronic kidney disease AV fistula Cardiac arrest ESRD (end stage renal disease) on dialysis Hemoptysis History of chemotherapy History of testicular cancer HIV carrier Hyperkalemia Shortness of breath Sleep apnea Tachycardia Surgical History History of orchiectomy, unilateral History of removal of Port-a-Cath S/P hemodialysis catheter insertion (11/30/20) R IJ catheter exchange S/P laparotomy Lymph node biopsy Family History Denies family history of Anesthesia complication Bleeding disorder Social History Smoking and tobacco status: former smoker Alcohol intake: never Adopted: No Caregiver/support person: Yes Lives independently: Yes Housing: House Current occupational status: disabled Pets and animals: No Sexually active: Yes Current gender identity: Male Josefa/Yazidi: Pentecostal Vitals/I&O/Wt Last Vital Signs Temp 98.1 F 10/22/22 04:00 Pulse 116 H 10/22/22 06:00 Resp 33 H 10/22/22 04:00 BP 105/73 10/22/22 04:00 Pulse Ox 95 10/22/22 04:00 O2 Del Method 10/22/22 04:00 O2 Flow Rate 2 10/22/22 04:00 10/21/22 10/21/22 10/22/22 14:59 22:59 06:59 Intake Total 100 / 100 59.75 / 159.75 Balance 100 / 100 59.75 / 159.75 Weight last 48 hrs Weight 66.678 kg Physical Exam Const: COMMON NORMALS: no acute distress and alert Neuro: SENSORIUM/ORIENTATION: Yes alert Data 10/22/22 04:12 10/22/22 04:12 Micro: Microbiology 10/21/22 23:59 Blood Culture - Preliminary Blood SPECIMEN COLLECTED 10/21/22 23:58 Blood Culture - Preliminary Blood SPECIMEN COLLECTED CXR: Radiologist's impression: Lungs: Mild venous congestion. Left lower lung patchy infiltrates are visualized. Right midlung infiltrates are also present. Pleural spaces: Unremarkable. No pleural effusion. No pneumothorax. Heart/Mediastinum: The heart is very large. Vasculature: Right IJ PermCath is in place. IVC filter. Bones/joints: Unremarkable. Other data: verbal consent obtained for telemedicine consult seen via telemedicine with assitance of RN at bedside A&P Assessment and plan (1) ESRD (end stage renal disease) on dialysis: Plan 1. ESRD, usual HD T//S. Tunneled HD catheter and AVF 2. Hyperkalemia 3. Pneumonia 4. FLuid overload 5. A flutter, cardiomyopahty, sleep apnea 6. Anemia 7. HIV REC; HD today: 4h, 2K, 2L UF as BP tolerates. No IVs, BPs, blood draws AVF arm. HD again tomorrow if needed for volume or hyperkalemia. Consult Attestations Medical Necessity Statement: see above Time Spent in Patient Care: 16 - 35 minutes Coding Level of Care Code Acute Code for Chg Fwd Diagnoses ESRD (end stage renal disease) on dialysis N18.6; Z99.2
[2022-10-22] MEDS: insulin regular-human 10 UNIT in SYRINGE 1 EACH IVP ×2 (07:22→08:18)
[2022-10-22] MEDS: calcium gluconate 0.9% NaCL 1 GM/50 ML PREMIX IV (07:26)
--- NOTE | 2022-10-22 07:57 | USCV_ITS ---
Vivek Harden Age: 37 Gender: M : 1985 Exam Date: 10/22/2022 08:11 Ordering Phys: Jurgen Yu MD Technologist: Braden Jung [place]am [place] [facility] [place]: ? ef BP: 120 / 75 HR: 41 Rhythm: Sinus Technical Quality: Adequate MEASUREMENTS (Male / Female) Normal Values 2D ECHO LV Diastolic Diameter PLAX 5.1 cm 4.2 - 5.9 / 3.9 - 5.3 cm LV Systolic Diameter PLAX 4.7 cm IVS Diastolic Thickness 1.0 cm 0.6 - 1.0 / 0.6 - 0.9 cm IVS Systolic Thickness 1.4 cm LVPW Diastolic Thickness 1.3 cm 0.6 - 1.0 / 0.6 - 0.9 cm LVPW Systolic Thickness 1.4 cm LVOT Diameter 2.1 cm LV Ejection Fraction 2D Teich 12.7 % LV Ejection Fraction MOD 2C 45.5 % LV Ejection Fraction 2C AL 44.7 % LA Diameter 3.5 cm Aorta at Sinotubular Diameter 2.4 cm IVC Diameter 1.2 cm M-MODE Aortic Annulus Diameter 3.0 cm LA Ao Ratio MM 1.3 MV E Point Septal Separation 1.9 cm DOPPLER AV Peak Velocity 154.0 cm/s LVOT Peak Velocity 103.0 cm/s AV Area Cont Eq vti 2.7 cm squared AV Area Cont Eq pk 2.3 cm squared MV Area PHT 5.7 cm squared Mitral E to A Ratio 1.3 MV E' Velocity 120.0 cm/s Mitral E to LV E' Septal Ratio 18.5 TR Peak Velocity 353.0 cm/s TR Peak Gradient 49.8 mmHg Right Atrial Pressure 5.0 mmHg Pulmonary Artery Systolic Pressu 54.8 mmHg RV Acceleration Time 0.1 s FINDINGS Left Ventricle Left ventricle is normal in size. LV systolic function is moderately reduced with EF of 35 to 40%. Moderate global hypokinesis seen. Right Ventricle Normal in size and function Right Atrium Normal in size. Pacemaker lead is noted Left Atrium Dilated Mitral Valve Structurally normal mitral valve. Moderate mitral regurgitation. Aortic Valve Structurally normal aortic valve. No significant stenosis or regurgitation. Tricuspid Valve Moderate tricuspid regurgitation. RVSP is 55-60mmHg. This is consistent with moderate pulmonary hypertension Pulmonic Valve Not well visualized Pericardium Small sized pericardial effusion. Aorta Normal in size IVC Appears to be normal CONCLUSIONS LV systolic function is moderately reduced with EF of 35 to 40%. Dilated left atrium Moderate mitral regurgitation Normal mild to moderate Tricuspid regurgitation. Moderate pulmonary hypertension Small sized pericardial effusion Compared to prior echocardiogram from 2021, no significant changes are seen Elgin Lewis MD (Electronically Signed) Final Date: 23 October 2022 08:50 S
--- NOTE | 2022-10-22 07:59 | USCV_ITS ---
Vivek Harden Age: 37 Gender: M : 1985 Exam Date: 10/22/2022 08:49 Ordering Phys: Jurgen Yu MD Technologist: CT Exam Location: [facility] – [place] Indication: hx of dvt PROCEDURES: The venous duplex Doppler examination of both lower extremities was performed in the standard fashion. The following venous structures were evaluated: common femoral vein, profunda vein, proximal portion of the greater saphenous vein, superficial femoral vein, and the popliteal vein. In addition, the posterior tibial and peroneal trunk were evaluated. On the right side, the common femoral, superficial femoral, profunda femoral, popliteal, posterior tibial, greater saphenous veins and the peroneal trunk were identified and interrogated in the standard fashion. These veins were found to be easily compressible with spontaneous blood flow. No evidence of insufficiency or thrombus noted. Left side with nonocclusive thrombus in left cfv and weblike thrombus in portions of fv, chronic in nature CONCLUSIONS No evidence of right lower extremity DVT. Subacute to chronic appearing weblike thrombus left CFV and femoral vein, non-occlusive Discussed with Dr. Yu 1030am on 10/22/22 Walt Pearson MD (Electronically Signed) Final Date: 22 October 2022 10:37 S
--- NOTE | 2022-10-22 08:16 | PC.PHAR ---
Addendum entered by Mariah Naik 10/22/22 12:55: pts states she couldnt find all the pts medication bottles-pts states she is unsure of all the medications the pt takes medications entered are meds [facility] states they have filled recently and what the pts states she found-entresto 1 tab bid last filled 02/04/22 30d/s-corlanor 5mg bid filled 01/27/22 30d/s rx written on 02/14/22 7.5mg bid-singulair 10mg daily last filled 02/18/22 30d/s-sevelamer carbonare 800mg 2 tabs with meals and 1 tab with snacks filled 01/08/22 90d/s-notes are made in the pharmacy comments Addendum entered by Mariah Naik 10/22/22 09:26: pts states give her 30 minutes and then call back states she is going to try to find his pill bottles Original Note: pt unable to verify all medications-pt states to call his at 09:30 when she gets out of class
--- NOTE | 2022-10-22 08:31 | P.CONIM_ITS ---
Providers/Reason For Consult Consulting Physician/Specialty*: Elgin Lewis MD/ Cardiology Reason for Consult*: Atrial fibrillation/ Congestive heart failure Requesting Physician: Dr Yu Attending Physician: Jurgen Yu MD Primary Care Provider: Rebecca Montiel MD History of Present Illness History of Present Illness Vivek Harden is a 37 year old male with past medical history of HIV, heart failure with reduced ejection fraction with last EF of 38%, nonischemic cardiomyopathy, end-stage renal disease on dialysis who presented to the hospital with complaints of palpitations, fever and productive cough. He was reported to be in atrial fibrillation with RVR with heart rate in 170s. He was put on Cardizem drip. EKGs demonstrate sinus tachycardia with a heart rate of 142 bpm. At time of my evaluation he is in sinus rhythm with heart rates less than 100 bpm. Review of Systems General: Reports: 10 or more systems reviewed and unremarkable except in HPI and below Const: Denies: fever(s), chills or body aches Eyes: Denies: change in vision, blurry vision or photophobia ENMT: Reports: hoarseness; Denies: throat pain, enlarged tonsils, odynophagia or nasal congestion Card: Denies: chest pain, palpitations, irregular heart rhythm, edema, swelling of feet/ankles, lightheadedness, pre-syncope, dyspnea on exertion or orthopnea Resp: Denies: dyspnea, productive cough, non-productive cough, wheezing, stridor, pain on inspiration, change in phlegm color, hemoptysis or chest jojo estion GI: Denies: abdominal pain, nausea, vomiting, hematemesis, coffee ground emesis, dysphagia, heartburn, diarrhea, constipation, GI cramping, change in stool character, hematochezia or melena : Denies: flank pain, dysuria, urinary frequency, urinary urgency, urinary hesitancy or hematuria Musc: Denies: neck pain, back pain, extremity pain, joint swelling, joint warmth or deformity Neuro: Denies: headache(s), numbness in extremities, weakness in extremities, sensory changes, difficulty walking, frequent falls, dizziness, vertigo, behavioral changes, Slurred speech present or seizure-like activity Psych: Denies: anxiety, depression, suicidal ideation or homicidal ideation Endo: Denies: polyuria, polydipsia, tired all the time, cold intolerance or hot flashes Wilver/Lymph: Denies: easy bruising or easy bleeding Medications/Allergies Home Medications Medication Instructions Recorded Confirmed Last Taken Type albuterol sulfate 90 mcg/actuation 2 puff inhalation Q4H PRN 11/13/21 10/22/22 Unknown Rx aerosol inhaler Shortness Of Breath #6.7 grams valacyclovir 500 mg tablet 500 mg PO DAILY PRN shingles 10 11/13/21 10/22/22 Unknown Rx (Valtrex) days #10 tabs metoprolol succinate 100 mg 100 mg PO BID #180 tabs 02/14/22 10/22/22 Unknown Rx tablet,extended release 24 hr torsemide 100 mg tablet 100 mg PO DAILY #90 tabs 02/14/22 10/22/22 Unknown Rx torsemide 20 mg tablet 20 mg PO DAILY #90 tabs 02/14/22 10/22/22 Unknown Rx bictegravir 50 mg-emtricitabine 1 tab PO DAILY 30 days #30 tabs 04/04/22 10/22/22 Unknown Rx 200 mg-tenofovir alafenam 25 mg tablet (Biktarvy) sulfamethoxazole 400 1 tab PO .monwedfri 90 days #60 04/18/22 10/22/22 Unknown Rx mg-trimethoprim 80 mg tablet tabs (Bactrim) Cpap mask, tubing, and supplies #1 ea 07/15/22 10/22/22 Unknown Rx cpap machine #1 ea 07/17/22 10/22/22 Unknown Rx cholecalciferol (vitamin D3) 1,250 50,000 unit PO Q7D 10/22/22 10/22/22 Unknown History mcg (50,000 unit) capsule lidocaine-prilocaine 2.5 %-2.5 % See Rx Instructions .Route .COMPLEX 10/22/22 10/22/22 Unknown History topical cream nifedipine 30 mg tablet,extended 30 mg PO QPM 10/22/22 10/22/22 Unknown History release Allergies Allergy/AdvReac Type Severity Reaction Status Date / Time acetaminophen Allergy Severe ALGY-Hives Verified 10/21/22 08:29 Iodinated Contrast Media Allergy Unknown Verified 10/21/22 08:29 Current Medications Generic Name Dose Route Start Last Admin Trade Name Freq PRN Reason Stop Dose Admin Azithromycin 500 mg 10/21/22 23:10 10/22/22 00:26 Azithromycin 250 Mg Tablet PO 10/24/22 23:09 500 mg DAILY MIGUEL Administration Protocol Heparin Sodium (Porcine) 5,000 unit 10/21/22 23:30 10/22/22 00:25 Heparin 5,000 Unit/Ml Inj 1 Ml SUBCUT 5,000 unit Q12H MIGUEL Administration Diltiazem HCl 100 mg/ Sodium 100 mls @ 0 mls/hr 10/21/22 21:45 10/22/22 00:00 Chloride IV 10 mg/hr .Q0M MIGUEL 10 mls/hr Titration Protocol Per Protocol Ceftriaxone Sodium 1,000 mg/ 50 mls @ 100 mls/hr 10/21/22 23:30 10/22/22 00:55 Sodium Chloride IV Infused Q24H MIGUEL Infusion Protocol Ondansetron HCl 4 mg 10/21/22 23:05 10/22/22 04:17 Ondansetron 2 Mg/Ml Sdv 2 Ml IVP 4 mg Q8H PRN Administration vomiting, or N/V if npo Sevelamer Carbonate 1,600 mg 10/21/22 23:15 10/22/22 02:23 Sevelamer 800 Mg Tablet PO Not Given TIDWM MIGUEL PFSH Acute PFSH: Medical History Anemia in chronic kidney disease AV fistula Cardiac arrest ESRD (end stage renal disease) on dialysis Hemoptysis History of chemotherapy History of testicular cancer HIV carrier Hyperkalemia Shortness of breath Sleep apnea Tachycardia Surgical History History of orchiectomy, unilateral History of removal of Port-a-Cath S/P hemodialysis catheter insertion (11/30/20) R IJ catheter exchange S/P laparotomy Lymph node biopsy Family History Denies family history of Anesthesia complication Bleeding disorder Social History Smoking and tobacco status: former smoker Alcohol intake: never Adopted: No Caregiver/support person: Yes Lives independently: Yes Housing: House Current occupational status: disabled Pets and animals: No Sexually active: Yes Current gender identity: Male Josefa/Cheondoism: Christianity Vitals/I&O/Wt Last Vital Signs Temp 97.5 F L 10/22/22 07:38 Pulse 100 10/22/22 07:38 Resp 21 H 10/22/22 07:38 BP 117/80 10/22/22 07:38 Pulse Ox 94 10/22/22 07:38 O2 Del Method 10/22/22 07:38 O2 Flow Rate 2 10/22/22 04:00 10/21/22 10/22/22 10/22/22 22:59 06:59 14:59 Intake Total 100 / 100 59.75 / 159.75 Balance 100 / 100 59.75 / 159.75 Weight last 48 hrs Weight 147 lb Physical Exam Narrative: GENERAL: Patient is alert, awake and oriented x3. [] NECK: No jugular vein distension. [] HEENT: No cyanosis. No icterus. No pallor. [] HEART: Regular S1 and S2. Has grade 3 out of 6 systolic murmur LUNGS: Clear to auscultate bilaterally. [] CENTRAL NERVOUS SYSTEM: Grossly nonfocal. [] EXTREMITIES: Lower extremities with no edema Data 10/22/22 04:12 10/22/22 04:12 Micro: Microbiology 10/21/22 23:59 Blood Culture - Preliminary Blood SPECIMEN COLLECTED 10/21/22 23:58 Blood Culture - Preliminary Blood SPECIMEN COLLECTED A&P Assessment and plan (1) Acute exacerbation of CHF (congestive heart failure): (2) Atrial fibrillation with rapid ventricular response: (3) ESRD (end stage renal disease) on dialysis: Plan Patient was reportedly in A. fib with RVR on presentation. I have not seen any EKG showing that. First EKG in chart shows sinus tachycardia. Now heart rate is controlled. Continue PO metoprolol. Order echocardiogram Dialysis as a scheduled Thank you for involving us with care of this patient. We will continue to follow. Please call with questions. Consult Attestations Medical Necessity Statement: Care expected to cross 2 midnights Coding Level of Care Code Acute Code for Chg Fwd Diagnoses Acute exacerbation of CHF (congestive heart failure) I50.9 Atrial fibrillation with rapid ventricular response I48.91 ESRD (end stage renal disease) on dialysis N18.6; Z99.2
[2022-10-22] MEDS: TORSEmide 20 mg Tablet 120 MG PO (08:37)
[2022-10-22] MEDS: pantoprazole DR 40 mg Tablet PO (08:37)
[2022-10-22] MEDS: metoprolol succinate ER (24 HR) 100 mg Tablet PO ×2 (08:37→17:23)
[2022-10-22] MEDS: sodium polystyrene sulfonate 15 gm/60 mL Btl PO (08:38)
[2022-10-22] MEDS: sevelamer 800 mg Tablet 1600 MG PO ×3 (08:38→17:23)
[2022-10-22] MEDS: morphine 4 mg/mL SDV 1 mL 2 MG IVP ×2 (08:42→19:38)
[2022-10-22 09:23] LABS: Hepatitis B Surface AB 41.7 (11.5-1000); Hepatitis B Surface Antigen Non-Reactive (Nonreactive); Hepatitis C Virus Antibody Non-Reactive (Nonreactive)
--- NOTE | 2022-10-22 10:36 | CT_ITS ---
WS: [id number] CTA OF THE CHEST WITH PULMONARY EMBOLISM PROTOCOL TECHNIQUE: High-resolution contrast enhanced CTA of the chest with coronal and sagittal reformatted i mages with pulmonary embolism protocol. MIP images are also reviewed. CLINICAL INFORMATION: dvt COMPARISON: CT chest October 22, 2022 DLP: 323.[address] scans at [facility] use at least one of these dose optimization techniques: automated e xposure control; mA and/or kV adjustment per patient size (includes targeted exams where dose is matc hed to clinical indication); or iterative reconstruction. FINDINGS: Cardiomegaly. IVC filter visualized on the abdominal images. Mild diffuse body wall anasarca. Proxima l main pulmonary arteries are normal. Normal segmental and subsegmental pulmonary arteries. No eviden ce of pulmonary embolus. Small LEFT pleural effusion. Patchy infiltrates in the LEFT greater than RIG HT lung bases. Subsegmental atelectasis LEFT lower lobe with partial airspace consolidation and air b ronchograms. Slight hazy groundglass infiltrates RIGHT lower lobe with a few patchy infiltrates. Findings are unch anged from the prior CT. Partially visualized bilateral renal calculi. Atrophic kidneys. Enlarged ret rocrural lymph nodes. Enlarged lymph nodes in the upper abdomen partially visualized. Hepatomegaly. CT/CT angio chest PE protcl [id number] IMPRESSION: 1. No evidence of pulmonary embolus. 2. Volume loss LEFT lower lobe with small LEFT pleural effusion and patchy inf iltrates in the LEFT lower lobe. Partial airspace consolidation similar to prio r CT 3. Slight hazy infiltrates in the RIGHT lower lobe are unchanged. 4. Cardiomegaly. 5. Partially visualized IVC filter. 6. Mild diffuse body wall anasarca.
--- NOTE | 2022-10-22 10:52 | PM.PN ---
Subjective Subjective: Patient was seen this morning, he is resting in bed, he is a bit upset about not getting his any sleep last night as there was multiple people waking him up for blood test, giving him medications, he denies any chest pain, no palpitations, no nausea, no vomiting, I asked him if he was taking some of his cardiac medications he is not sure, he is alert oriented x3, patient was found to have chronic DVTs and subacute DVTs in his left lower extremity, patient was unaware of this, I discussed with him starting him on blood thinners, heparin, will have to proceed with doing a CT angiogram of his chest, currently is on any oxygen no chest pain complaints, but his D-dimer is elevated, troponins are elevated denies a history of pulmonary embolism did have a cardiac arrest episode roughly a year ago but a CTA during that time was unremarkable in addition his coronary angiogram was unremarkable, he does have a listed allergy to iodinated contrast dye, no history of anaphylaxis to it, he has received CTAs in the past, will premedicate him, he agrees to proceed, he also has hyperkalemia despite getting insulin, will give another 10 units of IV push insulin D50 and calcium gluconate Vitals/I&O/Wt Last Vital Signs Temp 97.5 F L 10/22/22 07:38 Pulse 100 10/22/22 08:00 Resp 18 10/22/22 08:42 BP 117/80 10/22/22 07:38 Pulse Ox 95 10/22/22 08:42 O2 Del Method 10/22/22 08:00 O2 Flow Rate 2 10/22/22 08:00 10/21/22 10/22/22 10/22/22 22:59 06:59 14:59 Intake Total 100 / 100 59.75 / 159.75 360 / 360 Balance 100 / 100 59.75 / 159.75 360 / 360 Weight last 48 hrs Weight 66.678 kg Physical Exam Const: COMMON NORMALS: no acute distress and patient oriented x3 Resp: COMMON NORMALS: normal respiratory effort, No retractions, No use of accessory muscles and clear to auscultation bilaterally AUSCULTATION: clear to auscultation bilaterally Cardio: COMMON NORMALS: regular rate, regular rhythm, S1 normal heart sound present and S2 normal heart sound present RATE: regular rate RHYTHM: regular rhythm HEART SOUNDS: S1 normal heart sound present and S2 normal heart sound present GI: COMMON NORMALS: Normal to inspection, nondistended, normoactive bowel sounds present, Soft to palpation and non-tender PALPATION: Yes Soft to palpation Extremity: COMMON NORMALS: no pedal edema Neuro: COMMON NORMALS: patient oriented x3 Psych: COMMON NORMALS: mental status grossly normal Data 10/22/22 04:12 10/22/22 04:12 Micro: Microbiology 10/21/22 23:59 Blood Culture - Preliminary Blood SPECIMEN COLLECTED 10/21/22 23:58 Blood Culture - Preliminary Blood SPECIMEN COLLECTED A&P Assessment and plan (1) DVT (deep venous thrombosis): (2) Elevated d-dimer: (3) Hyperkalemia: (4) Pneumonia: (5) Atrial fibrillation with rapid ventricular response: (6) ESRD (end stage renal disease) on dialysis: (7) History of orchiectomy, unilateral: (8) COPD (chronic obstructive pulmonary disease): (9) HIV (human immunodeficiency virus infection): (10) Cardiac arrest: (11) NSTEMI (non-ST elevated myocardial infarction): (12) Congestive heart disease: (13) Pulmonary edema: (14) Acute exacerbation of CHF (congestive heart failure): (15) Transaminitis: (16) Acute respiratory failure with hypoxia: Plan LLE DVT Left lower extremity ultrasound No evidence of right lower extremity DVT. ?Subacute to chronic appearing weblike thrombus left CFV and ?femoral vein, non-occlusive -No history of DVTs in the past, is not on any blood thinners, he was unaware -Started on heparin drip Elevated D-dimer -Acute hypoxia -NSTEMI -We will premedicate him with Solu-Medrol, Benadryl proceed with CT angiogram to look for pulmonary embolism History of cardiac arrest 02/15/2022, CT angiogram of the chest was negative for pulmonary embolism, coronary angiogram was negative for obstructive CAD, EF was reduced 20%, was found to have cavitary pneumonia, multilobar pneumonia, and with RVR Paroxysmal atrial fibrillation, A. fib with RVR -Converted to normal sinus rhythm -Continue home metoprolol 100 twice daily -On heparin drip as above -Cardiac echo -Cardiology consulted Non-ST elevation DE -Serial EKGs serial troponins telemetry monitoring -CT angiogram ordered -Cardiac echocardiogram ordered -Cardiac catheterization 522 did not show any obstructive CAD -Cardiology consulted -Continue heparin drip Pneumonia, left lower lobe infiltrate seen on chest x-ray -Continue Rocephin, azithromycin Acute systolic diastolic CHF exacerbation -With pulmonary edema -Elevated BNP -Nephrology consulted for dialysis Acute hyperkalemia -Has received 2 doses of insulin, D50, calcium gluconate -He refused second dose of Kayexalate -Continue telemetry monitoring -Currently receiving dialysis History of HIV on Biktarvy Last VL zero from 03/2022 ; Cd4 count 97 Check VL and CD4 count today continue bactrim ppx for PJP, will d/c if CD4 recovered to >200 End-stage renal disease on dialysis Attestations Medical Necessity Statement*: Patient requires hospitalization, inpatient, greater than 2 midnights, for acute CHF exacerbation, pulm edema, pneumonia, acute hypoxia, respiratory failure, DVT, hyperkalemia, transaminitis, Time Spent in Patient Care: Greater than 35 minutes Coding Level of Care Code Acute Code for [facility] Diagnoses DVT (deep venous thrombosis) I82.409 Elevated d-dimer R79.89 Hyperkalemia E87.5 Pneumonia J18.9 Atrial fibrillation with rapid ventricular response I48.91 ESRD (end stage renal disease) on dialysis N18.6; Z99.2 History of orchiectomy, unilateral Z90.79 COPD (chronic obstructive pulmonary disease) J44.9 HIV (human immunodeficiency virus infection) B20 Cardiac arrest I46.9 NSTEMI (non-ST elevated myocardial infarction) I21.4 Congestive heart disease I50.9 Pulmonary edema J81.1 Acute exacerbation of CHF (congestive heart failure) I50.9 Transaminitis R74.01 Acute respiratory failure with hypoxia J96.01
[2022-10-22] MEDS: heparin, porcine 1,000 unit/mL INJ 10 mL 1000 UNIT IV (14:11)
[2022-10-22] MEDS: diphenhydrAMINE 50 mg/mL SDV 1mL 25 MG IVP (14:18)
[2022-10-22] MEDS: iohexol 350 mg/mL 500 mL Btl (per mL) IV (14:45)
[2022-10-23] VITALS (21 sets, daily range): BP systolic 99–122; BP diastolic 69–88; PULSE 66–92; RESP 14–34; TEMP 36.6–36.8; O2SAT 92–100
[2022-10-23 04:12] LABS: Hematocrit 30.7 % (42.0-52.0); Hemoglobin 9.7 g/dL (11.7-16.6); Lymphocytes # 0.5 10^3/uL (0.8-4.8); Lymphocytes % 10.8 %; Mean Corpuscular HGB Conc 31.6 g/dL (30.0-36.0); Mean Corpuscular Volume 91.9 fl (80-94); Mean Platelet Volume 11.3 fL (7.4-10.4); Monocytes # 0.1 10^3/uL (0.2-0.9); Monocytes % 2.3 %; Neutrophils # 4.15 10^3/uL (1.8-7.7); Neutrophils % 86.3 %; Nucleated Red Blood Cells % 0.8 %; Platelet Count 156 10^3/cmm (130-400); Red Blood Count 3.34 10^6/uL (4.1-5.3); Red Cell Distribution Width 15.6 % (12.1-15.1); White Blood Count 4.8 10^3/uL (4.0-10.0)
[2022-10-23 04:32] LABS: Slide Review Slide Review Perform
[2022-10-23 04:36] LABS: Magnesium 2.3 mg/dL (1.7-2.3)
[2022-10-23 04:46] LABS: Anion Gap 21.3 (5-19); Blood Urea Nitrogen 40 mg/dL (6-20); Calcium 8.8 mg/dL (8.5-10.5); Carbon Dioxide 28 mmol/L (22-29); Chloride 88 mmol/L (98-107); Glomerular Filtration Rate 8.9 mL/min (90-130); Glucose 124 mg/dL (65-115); Osmolality Calculated 283 mOsm/kg (285-295); Potassium 6.3 mmol/L (3.5-5.1); Sodium 131 mmol/L (136-145)
[2022-10-23 06:03] LABS: NT Pro B Type Natriuretic Pept > 70000 pg/mL (0-125)
--- NOTE | 2022-10-23 07:12 | XR_ITS ---
WS: [id number] Exam: XR KUB portable [id number] Date/Time of Exam: 10/23/2022 7:43 AM Reason For Exam: IVC filter in place??? No bowel obstruction or free air. An IVC filter is noted in the medial aspect of the upper right abdo men. Numerous surgical clips in the abdomen. There are 3 faceted calcifications in the right abdomen that may represent gallstones or kidney stones. Radiographic contrast in urinary bladder. No sign of organ enlargement. Bony elements are intact. There are 3 metallic circular densities superimposing th e pelvis and left hip probably artifact within the clothing. XR/XR KUB portable [id number] IMPRESSION: 1. No acute abdominal finding. 2. IVC filter noted in the medial right upper abdominal region. Signs of abdomi nal and pelvic surgery. 3. There are 3 faceted calcifications in the right abdomen that may represent g allstones or kidney stones.
[2022-10-23] MEDS: morphine 4 mg/mL SDV 1 mL 2 MG IVP ×3 (07:48→19:18)
[2022-10-23] MEDS: sevelamer 800 mg Tablet 1600 MG PO ×2 (08:11→17:33)
[2022-10-23] MEDS: metoprolol succinate ER (24 HR) 100 mg Tablet PO ×2 (08:12→17:33)
[2022-10-23] MEDS: azithromycin 250 mg Tablet 500 MG PO (08:12)
[2022-10-23] MEDS: TORSEmide 20 mg Tablet 120 MG PO (08:13)
[2022-10-23] MEDS: pantoprazole DR 40 mg Tablet PO (08:23)
--- NOTE | 2022-10-23 09:28 | PM.PN ---
Subjective Subjective: no new complaints Medications: Reviewed: Yes Vitals/I&O/Wt Last Vital Signs Temp 98.2 F 10/23/22 04:00 Pulse 86 10/23/22 08:00 Resp 16 10/23/22 08:00 BP 109/88 10/23/22 07:25 Pulse Ox 100 10/23/22 08:00 O2 Del Method 10/23/22 08:00 O2 Flow Rate 2 10/23/22 08:00 10/22/22 10/23/22 10/23/22 22:59 06:59 14:59 Intake Total 1380.45 / 2180.45 50 / 2230.45 Output Total 2164 / 2164 Balance -783.55 / 16.45 50 / 66.45 Weight last 48 hrs Weight 62.9 kg Weight 66.678 kg Physical Exam Const: COMMON NORMALS: no acute distress and alert Neuro: SENSORIUM/ORIENTATION: Yes alert Data 10/23/22 03:28 10/23/22 03:28 Micro: Microbiology 10/21/22 23:59 Blood Culture - Preliminary Blood NEGATIVE TO DATE 10/21/22 23:58 Blood Culture - Preliminary Blood NEGATIVE TO DATE A&P Assessment and plan (1) ESRD (end stage renal disease) on dialysis: Plan 1. ESRD, usual HD T/Th/S. Tunneled HD catheter and AVF 2. Hyperkalemia 3. Pneumonia 4. FLuid overload 5. A flutter, cardiomyopahty, sleep apnea 6. Anemia 7. HIV REC; HD today: 3.5 h, 2K, 2L UF as BP tolerates. No IVs, BPs, blood draws AVF arm. . Attestations Medical Necessity Statement*: Patient requires hospitalization, inpatient, greater than 2 midnights, for acute CHF exacerbation, pulm edema, pneumonia, acute hypoxia, respiratory failure, DVT, hyperkalemia, transaminitis, Time Spent in Patient Care: Greater than 35 minutes Coding Level of Care Code Acute Code for [facility] Diagnoses ESRD (end stage renal disease) on dialysis N18.6; Z99.2
--- NOTE | 2022-10-23 10:15 | PM.PN ---
Subjective Subjective: Patient found to have left lower extremity DVT. Denies chest pain or significant shortness of breath. Vitals/I&O/Wt Last Vital Signs Temp 98.2 F 10/23/22 04:00 Pulse 86 10/23/22 08:00 Resp 16 10/23/22 08:00 BP 109/88 10/23/22 07:25 Pulse Ox 100 10/23/22 08:00 O2 Del Method 10/23/22 08:00 O2 Flow Rate 2 10/23/22 08:00 10/22/22 10/23/22 10/23/22 22:59 06:59 14:59 Intake Total 1380.45 / 2180.45 50 / 2230.45 480 / 480 Output Total 2164 / 2164 Balance -783.55 / 16.45 50 / 66.45 480 / 480 Weight last 48 hrs Weight 138 lb 10.732 oz Weight 147 lb Physical Exam Narrative: GENERAL: Patient is alert, awake and oriented x3. [] NECK: No jugular vein distension. [] HEENT: No cyanosis. No icterus. No pallor. [] HEART: Regular S1 and S2. Has grade 3 out of 6 systolic murmur LUNGS: Clear to auscultate bilaterally. [] CENTRAL NERVOUS SYSTEM: Grossly nonfocal. [] EXTREMITIES: Lower extremities with no edema Data 10/23/22 03:28 10/23/22 03:28 Micro: Microbiology 10/21/22 23:59 Blood Culture - Preliminary Blood NEGATIVE TO DATE 10/21/22 23:58 Blood Culture - Preliminary Blood NEGATIVE TO DATE A&P Assessment and plan (1) Acute exacerbation of CHF (congestive heart failure): (2) Atrial fibrillation with rapid ventricular response: (3) ESRD (end stage renal disease) on dialysis: (4) DVT (deep venous thrombosis): Plan Patient was reportedly in A. fib with RVR on presentation. Now in normal sinus rhythm. Continue metoprolol Echo shows unchanged EF from before. He is found to have DVT. With reports of atrial fibrillation, it will be reasonable to start long-term anticoagulation that will cover both Dialysis as a scheduled Thank you for involving us with care of this patient. We will continue to follow. Please call with questions. Attestations Medical Necessity Statement*: Care expected to cross 2 midnights. Coding Level of Care Code Acute Code for [facility] Diagnoses Acute exacerbation of CHF (congestive heart failure) I50.9 Atrial fibrillation with rapid ventricular response I48.91 ESRD (end stage renal disease) on dialysis N18.6; Z99.2 DVT (deep venous thrombosis) I82.409
--- NOTE | 2022-10-23 10:48 | P.PN_ITS ---
Subjective Subjective: Patient was seen this morning, no complaints overnight, no chest pain, no palpitations, no shortness of breath is on 2 L -He tells me that roughly 15 years ago his left leg had a DVT that required t hrombectomy procedure he is not exactly sure if he was on blood thinners, but he did have an IVC filter placed -He is not sure if he had any complications, he denies a history of bleeding -I discussed with him plans on continuing anticoagulation his CT angiogram was negative for pulmonary embolism -Likely discharge home on anticoagulation as he has acute on chronic DVT Vitals/I&O/Wt Last Vital Signs Temp 98.2 F 10/23/22 04:00 Pulse 86 10/23/22 08:00 Resp 16 10/23/22 08:00 BP 109/88 10/23/22 07:25 Pulse Ox 100 10/23/22 08:00 O2 Del Method 10/23/22 08:00 O2 Flow Rate 2 10/23/22 08:00 10/22/22 10/23/22 10/23/22 22:59 06:59 14:59 Intake Total 1380.45 / 2180.45 50 / 2230.45 480 / 480 Output Total 2164 / 2164 Balance -783.55 / 16.45 50 / 66.45 480 / 480 Weight last 48 hrs Weight 62.9 kg Weight 66.678 kg Physical Exam Const: COMMON NORMALS: no acute distress and patient oriented x3 Resp: COMMON NORMALS: normal respiratory effort, No retractions, No use of accessory muscles and clear to auscultation bilaterally AUSCULTATION: clear to auscultation bilaterally Cardio: COMMON NORMALS: regular rate, regular rhythm, S1 normal heart sound present and S2 normal heart sound present RATE: regular rate RHYTHM: regular rhythm HEART SOUNDS: S1 normal heart sound present and S2 normal heart sound present GI: COMMON NORMALS: Normal to inspection, nondistended, normoactive bowel sounds present and non-tender Extremity: COMMON NORMALS: no pedal edema Neuro: COMMON NORMALS: patient oriented x3 Psych: COMMON NORMALS: mental status grossly normal Data 10/23/22 03:28 10/23/22 03:28 Micro: Microbiology 10/21/22 23:59 Blood Culture - Preliminary Blood NEGATIVE TO DATE 10/21/22 23:58 Blood Culture - Preliminary Blood NEGATIVE TO DATE A&P Assessment and plan (1) DVT (deep venous thrombosis): (2) Elevated d-dimer: (3) Hyperkalemia: (4) Pneumonia: (5) Atrial fibrillation with rapid ventricular response: (6) ESRD (end stage renal disease) on dialysis: (7) History of orchiectomy, unilateral: (8) COPD (chronic obstructive pulmonary disease): (9) HIV (human immunodeficiency virus infection): (10) Cardiac arrest: (11) NSTEMI (non-ST elevated myocardial infarction): (12) Congestive heart disease: (13) Pulmonary edema: (14) Acute exacerbation of CHF (congestive heart failure): (15) Transaminitis: (16) Acute respiratory failure with hypoxia: Plan LLE DVT Left lower extremity ultrasound No evidence of right lower extremity DVT. ?Subacute to chronic appearing weblike thrombus left CFV and ?femoral vein, non-occlusive -Started on heparin drip, dc on eliquis --He tells me that roughly 15 years ago his left leg had a DVT that required thrombectomy procedure he is not exactly sure if he was on blood thinners, but he did have an IVC filter placed -He is not sure if he had any complications, he denies a history of bleeding, or go bleed or anemia -I discussed with him plans on continuing anticoagulatio, his CT angiogram was negative for pulmonary embolism -Likely discharge home on chronic anticoagulation as he has acute on chronic DVT Elevated D-dimer -Acute hypoxia -NSTEMI -ct negative for pe History of cardiac arrest 02/15/2022, CT angiogram of the chest was negative for pulmonary embolism, coronary angiogram was negative for obstructive CAD, EF was reduced 20%, was found to have cavitary pneumonia, multilobar pneumonia, and with RVR Paroxysmal atrial fibrillation, A. fib with RVR -Converted to normal sinus rhythm -Continue home metoprolol 100 twice daily -On heparin drip as above -Cardiac echo ?LV systolic function is moderately reduced with EF of 35 to 40%. ?Dilated left atrium ?Moderate mitral regurgitation ?Normal mild to moderate Tricuspid regurgitation.? ?Moderate pulmonary hypertension ?Small sized pericardial effusion ?Compared to prior echocardiogram from 2021, no significant ?changes are seen -Cardiology consulted Non-ST elevation DC -Serial EKGs serial troponins telemetry monitoring -CT angiogram, no pe -Cardiac echocardiogram ?LV systolic function is moderately reduced with EF of 35 to 40%. ?Dilated left atrium ?Moderate mitral regurgitation ?Normal mild to moderate Tricuspid regurgitation.? ?Moderate pulmonary hypertension ?Small sized pericardial effusion ?Compared to prior echocardiogram from 2021, no significant ?changes are seen -Cardiac catheterization 02/17 did not show any obstructive CAD -Cardiology consulted -Continue heparin drip Pneumonia, left lower lobe infiltrate seen on chest x-ray -Continue Rocephin, azithromycin Acute systolic diastolic CHF exacerbation -With pulmonary edema -Elevated BNP -Nephrology consulted for dialysis Acute hyperkalemia -Has received 2 doses of insulin, D50, calcium gluconate -He refused second dose of Kayexalate, has been refusing Kayexalate -This morning potassium 6.3, no chest pain, palpitations we will get dialysis this morning -Continue telemetry monitoring History of HIV on Biktarvy Last VL zero from 03/2022 ; Cd4 count 97 Check VL and CD4 count today continue bactrim ppx for PJP, will d/c if CD4 recovered to >200 End-stage renal disease on dialysis Attestations Medical Necessity Statement*: Patient requires hospitalization for DVT, fluid overload, hyperkalemia requiring dialysis requiring heparin drip, NSTEMI Coding Level of Care Code Acute Code for [facility] Diagnoses DVT (deep venous thrombosis) I82.409 Elevated d-dimer R79.89 Hyperkalemia E87.5 Pneumonia J18.9 Atrial fibrillation with rapid ventricular response I48.91 ESRD (end stage renal disease) on dialysis N18.6; Z99.2 History of orchiectomy, unilateral Z90.79 COPD (chronic obstructive pulmonary disease) J44.9 HIV (human immunodeficiency virus infection) B20 Cardiac arrest I46.9 NSTEMI (non-ST elevated myocardial infarction) I21.4 Congestive heart disease I50.9 Pulmonary edema J81.1 Acute exacerbation of CHF (congestive heart failure) I50.9 Transaminitis R74.01 Acute respiratory failure with hypoxia J96.01
[2022-10-23] MEDS: heparin 5,000 unit/mL INJ 1 mL IV (12:12)
[2022-10-23] MEDS: heparin drip 25,000 UNIT/500 ML PREMIX 17 UNIT IV (12:13)
[2022-10-23] MEDS: sulfamethoxazole-trimeth DS 160-800 mg Tablet 0.5 TAB PO (16:30)
[2022-10-23] MEDS: heparin, porcine 1,000 unit/mL INJ 10 mL 10000 UNIT HE (16:40)
[2022-10-23] MEDS: heparin 5,000 unit/mL INJ 1 mL 5000 UNIT SUBCUT (16:42)
[2022-10-23 18:49] LABS: Partial Thromboplastin Time 55.8 SECONDS (23.9-36.7)
[2022-10-23] MEDS: cefTRIAXone 1,000 MG in sodium chloride 0.9% (plus) 50 ML 100 MG IV (23:35)
[2022-10-24] VITALS (7 sets, daily range): BP systolic 92–111; BP diastolic 55–79; PULSE 68–79; RESP 15–21; TEMP 36.3–36.8; O2SAT 96–99
[2022-10-24 01:17] LABS: Basophils % 0.1 %; Hematocrit 34.1 % (42.0-52.0); Hemoglobin 10.6 g/dL (11.7-16.6); Lymphocytes # 0.9 10^3/uL (0.8-4.8); Lymphocytes % 9.3 %; Mean Corpuscular HGB Conc 31.1 g/dL (30.0-36.0); Mean Corpuscular Hemoglobin 28.6 pg (28.0-34.0); Mean Corpuscular Volume 91.9 fl (80-94); Mean Platelet Volume 10.9 fL (7.4-10.4); Monocytes # 0.5 10^3/uL (0.2-0.9); Monocytes % 5.9 %; Neutrophils # 7.68 10^3/uL (1.8-7.7); Nucleated Red Blood Cells # 0.2 /100WBC; Nucleated Red Blood Cells % 1.9 %; Platelet Count 204 10^3/cmm (130-400); Red Blood Count 3.71 10^6/uL (4.1-5.3); White Blood Count 9.1 10^3/uL (4.0-10.0)
[2022-10-24 01:32] LABS: Partial Thromboplastin Time 40.7 SECONDS (23.9-36.7)
[2022-10-24] MEDS: heparin 5,000 unit/mL INJ 1 mL IV (01:44)
[2022-10-24 01:49] LABS: Blood Urea Nitrogen 38 mg/dL (6-20); Calcium 8.8 mg/dL (8.5-10.5); Carbon Dioxide 27 mmol/L (22-29); Chloride 94 mmol/L (98-107); Glomerular Filtration Rate 12.6 mL/min (90-130); Glucose 127 mg/dL (65-115); Magnesium 2.3 mg/dL (1.7-2.3); Osmolality Calculated 293 mOsm/kg (285-295); Sodium 136 mmol/L (136-145)
[2022-10-24 01:57] LABS: Anion Gap 20.6 (5-19); Potassium 5.6 mmol/L (3.5-5.1)
[2022-10-24 02:01] LABS: Creatinine Clr Calc Pharmacy 15.3186
[2022-10-24 02:18] LABS: NT Pro B Type Natriuretic Pept > 70000 pg/mL (0-125)
[2022-10-24] MEDS: azithromycin 250 mg Tablet 500 MG PO (07:55)
[2022-10-24] MEDS: sevelamer 800 mg Tablet 1600 MG PO (07:55)
[2022-10-24] MEDS: apixaban 5 mg Tablet PO (07:55)
[2022-10-24] MEDS: sacubitril/valsartan 24-26 mg Tablet 1 EACH PO (07:56)
[2022-10-24] MEDS: metoprolol succinate ER (24 HR) 100 mg Tablet PO (07:56)
[2022-10-24] MEDS: pantoprazole DR 40 mg Tablet PO (07:56)
[2022-10-24 08:30] LABS: Partial Thromboplastin Time 34.2 SECONDS (23.9-36.7)
--- NOTE | 2022-10-24 09:44 | PM.PN ---
Subjective Subjective: Patient is doing well. no chest pain Vitals/I&O/Wt Last Vital Signs Temp 97.3 F L 10/24/22 09:19 Pulse 79 10/24/22 09:19 Resp 16 10/24/22 09:19 BP 107/79 10/24/22 09:19 Pulse Ox 96 10/24/22 08:33 O2 Del Method 10/24/22 08:33 O2 Flow Rate 2 10/23/22 08:00 10/23/22 10/24/22 10/24/22 22:59 06:59 14:59 Intake Total 900 / 1480 374 / 1854 480 / 480 Output Total 3107 / 3107 Balance -2207 / -1627 374 / -1253 480 / 480 Weight last 48 hrs Weight 137 lb 5.568 oz Weight 138 lb 10.732 oz Physical Exam Narrative: GENERAL: Patient is alert, awake and oriented x3. [] NECK: No jugular vein distension. [] HEENT: No cyanosis. No icterus. No pallor. [] HEART: Regular S1 and S2. Has grade 3/6 systolic murmur LUNGS: Clear to auscultate bilaterally. [] CENTRAL NERVOUS SYSTEM: Grossly nonfocal. [] EXTREMITIES: Lower extremities with no edema Data 10/24/22 01:08 10/24/22 01:08 A&P Assessment and plan (1) Acute exacerbation of CHF (congestive heart failure): (2) Atrial fibrillation with rapid ventricular response: (3) ESRD (end stage renal disease) on dialysis: (4) DVT (deep venous thrombosis): Plan Patient is stable. Continue metoprolol Eliquis 5mg BID Dialysis as a scheduled Thank you for involving us with care of this patient. Please call with questions. Attestations Medical Necessity Statement*: Care expected to cross 2 midnights. Coding Level of Care Code Acute Code for [facility] Diagnoses Acute exacerbation of CHF (congestive heart failure) I50.9 Atrial fibrillation with rapid ventricular response I48.91 ESRD (end stage renal disease) on dialysis N18.6; Z99.2 DVT (deep venous thrombosis) I82.409
--- NOTE | 2022-10-24 11:30 | P.DS_ITS ---
Discharge Providers Date of Admission: 10/22/22 00:20 Date of Discharge: October 24, 2022 Attending Provider at Admission: Val Palmer MD Attending Provider at Discharge: Jurgen Yu MD Primary Care Provider: Rebecca Montiel MD Diagnoses at Discharge Discharge Diagnosis (1) Acute exacerbation of CHF (congestive heart failure): Status: Acute (2) Atrial fibrillation with rapid ventricular response: Status: Acute (3) ESRD (end stage renal disease) on dialysis: Status: Acute (4) DVT (deep venous thrombosis): Status: Acute Reason for Visit Reason for Visit: Heart Beat Fast\SOB\Back Pain Hospital Course Hospital Course Vivek Harden is a 37 year old male ?with past medical history of , HIV on Biktarvy ,HFrE last EF 38 % (imprved from 22%), non ischemic cardiomyopathy, ? end-stage renal disease dialysis dependent Friday, history of testicular cancer HENRY currently , was admitted with chief complaint of? fever, sore throat and productive cough for which he visited with his PCP earlier today where he was noted to be tachycardiac with HR 140-170 and EKG /so A flutter. He was sent to the ER where he was found to have A fib with RVR with HR 170 initially. Received few pushes of cardizem and has been started on cardizem gtt at 10mg/hr currently. CXR shows LLL infiltrate, cardiomegaly. Patient was transferred to [facility] [place] for paroxysmal atrial fibrillation, with rapid ventricular response, converted to normal sinus rhythm, cardiology was consulted. Will be discharged on his home metoprolol, Cardizem, Eliquis, follow-up with cardiology as outpatient Patient was found to have fluid overload, pulmonary edema, systolic diastolic CHF exacerbation, continue to hold torsemide, received inpatient dialysis, overall clinically improved. Discharged with his home dialysis schedule Had acute hyperkalemia, requiring insulin, D50, Kayexalate, dialysis therapy sessions, potassium on discharge 5.6 Patient was found to have left lower extremity DVT on examination, subacute to chronic appearing with weblike thrombus in left CFV and femoral vein, nonocclusive started on heparin drip -He tells me that roughly 15 years ago his left leg had a DVT that required thrombectomy procedure he is not exactly sure if he was on blood thinners, but he did have an IVC filter placed -He is not sure if he had any complications, he denies a history of bleeding, or go bleed or anemia -I discussed with him plans on continuing anticoagulation,? his CT angiogram was negative for pulmonary embolism -As he has acute evidence of DVT, left lower extremity discussed risks and benefits of anticoagulation, he voiced understanding, all questions answered, agreed to proceed -Discharged on Eliquis 5 mg twice daily, follow-up with hematology as outpatient Patient was also found to have pneumonia during hospitalization, treated with broad-spectrum antibiotic therapy, discharged on Augmentin therapy For acute on chronic CHF exacerbation, repeat echocardiogram showed EF 35 to 40%, patient takes ivadarbine and enteresto at home, in addition takes torsemide 120 mg once daily at home continue home doses, follow-up with cardiology as outpatient Physical Exam Const: COMMON NORMALS: no acute distress and patient oriented x3 Resp: COMMON NORMALS: normal respiratory effort, No retractions, No use of accessory muscles and clear to auscultation bilaterally AUSCULTATION: clear to auscultation bilaterally Cardio: COMMON NORMALS: regular rate, regular rhythm, S1 normal heart sound present and S2 normal heart sound present RATE: regular rate RHYTHM: regular rhythm HEART SOUNDS: S1 normal heart sound present and S2 normal heart sound present GI: COMMON NORMALS: Normal to inspection, nondistended, normoactive bowel sounds present and non-tender Extremity: COMMON NORMALS: no pedal edema Neuro: COMMON NORMALS: patient oriented x3 Psych: COMMON NORMALS: mental status grossly normal Discharge Data Studies Completed and Pending Completed Studies During Hospitalization Category Date Time Status CT angio chest PE protcl [id number] Routine Cat Scan 10/22/22 10:[address] chest wo con [id number] Stat Cat Scan 10/21/22 23:05 Completed XR KUB portable [id number] Routine Exams 10/23/22 07:12 Completed XR chest 1V portable [id number] Stat Exams 10/21/22 19:26 [place] [id number] Routine Ultrasound 10/22/22 07:59 Completed CV. echo complete* [id number] Routine Ultrasound 10/22/22 07:57 Completed Pending at discharge Category Date Time Status Basic Metabolic Panel AM LABS Lab 10/25/22 04:00 Ordered Blood Culture Routine Lab 10/21/22 23:59 Results Complete Blood Count w/Auto AM LABS Lab 10/25/22 04:00 Ordered HIV RNA (PCR) Quant AM LABS Lab 10/22/22 04:12 Received Lymphocyte Subset Panel 4 Routine Lab 10/22/22 11:11 Received Magnesium AM LABS Lab 10/25/22 04:00 Ordered NT Pro B Type Natriuretic Pept QAM Lab 10/25/22 06:00 Ordered Sputum Culture and Gram Stain Routine Lab 10/21/22 23:08 Uncollected Urinalysis Stat Lab 10/21/22 19:49 Uncollected Radiology Impressions Chest X-Ray 10/21/22 19:26 IMPRESSION: 1. Large heart with mild evidence of pulmonary edema. 2. Fulp-rptgeln-puyc-right patchy bibasilar atelectasis, edema, or developing pneumonia with small effusions. Findings have progressed from 05/14/2022. 3. No pneumothorax. Chest CT 10/21/22 23:05 IMPRESSION: 1. Large heart with mild evidence of CHF or positive fluid balance. 2. Mppw-rjuuwov-zoac-right bilateral lower lobe atelectasis or developing pneumonia, especially in the LLL. 3. Trace pleural effusions. 4. Other findings above. Recommend 2 month follow-up. The findings have progressed markedly from 05/14/2022. COMMENTS: Consistent with the [employer]'s Incidental Findings Committee white paper (J Am Deb Radiol 2018): Any incidental renal lesion less than 1 cm or classified as too small to characterize, or any incidental cystic renal lesion characterized as simple-appearing, is likely benign. No follow-up imaging is recommended for these lesions per consensus recommendations based on imaging criteria. Chest CTA 10/22/22 10:36 IMPRESSION: 1. No evidence of pulmonary embolus. 2. Volume loss LEFT lower lobe with small LEFT pleural effusion and patchy infiltrates in the LEFT lower lobe. Partial airspace consolidation similar to prior CT 3. Slight hazy infiltrates in the RIGHT lower lobe are unchanged. 4. Cardiomegaly. 5. Partially visualized IVC filter. 6. Mild diffuse body wall anasarca. KUB X-Ray 10/23/22 07:12 IMPRESSION: 1. No acute abdominal finding. 2. IVC filter noted in the medial right upper abdominal region. Signs of abdominal and pelvic surgery. 3. There are 3 faceted calcifications in the right abdomen that may represent gallstones or kidney stones. Laboratory Results WBC 9.1 10^3/uL (4.0-10.0) 10/24/22 01:08 RBC 3.71 10^6/uL (4.1-5.3) L 10/24/22 01:08 Hgb 10.6 g/dL (11.7-16.6) L 10/24/22 01:08 Hct 34.1 % (42.0-52.0) L 10/24/22 01:08 MCV 91.9 fl (80-94) 10/24/22 01:08 MCH 28.6 pg (28.0-34.0) 10/24/22 01:08 MCHC 31.1 g/dL (30.0-36.0) 10/24/22 01:08 RDW 15.0 % (12.1-15.1) 10/24/22 01:08 Plt Count 204 10^3/cmm (130-400) D 10/24/22 01:08 MPV 10.9 fL (7.4-10.4) H 10/24/22 01:08 Neut % (Auto) 84.0 % 10/24/22 01:08 Lymph % (Auto) 9.3 % 10/24/22 01:08 [place] % (Auto) 5.9 % 10/24/22 01:08 Eos % (Auto) 0.0 % 10/24/22 01:08 Baso % (Auto) 0.1 % 10/24/22 01:08 Neut # (Auto) 7.68 10^3/uL (1.8-7.7) 10/24/22 01:08 Lymph # (Auto) 0.9 10^3/uL (0.8-4.8) 10/24/22 01:08 [place] # (Auto) 0.5 10^3/uL (0.2-0.9) 10/24/22 01:08 Eos # (Auto) 0.0 10^3/uL (0.0-0.8) 10/24/22 01:08 Baso # (Auto) 0.0 10^3/uL (0.0-0.1) 10/24/22 01:08 Nucleated RBC % (auto) 1.9 % 10/24/22 01:08 Nucleated RBCs # 0.2 /100WBC 10/24/22 01:08 PT 17.20 SECONDS (12.1-14.9) H 10/21/22 19:35 INR 1.37 (0.8-1.2) H 10/21/22 19:35 APTT 34.2 SECONDS (23.9-36.7) 10/24/22 08:10 D-Dimer 9.14 ug/mIFEU (0-0.59) H 10/21/22 19:35 Sodium 136 mmol/L (136-145) 10/24/22 01:08 Potassium 5.6 mmol/L (3.5-5.1) H 10/24/22 01:08 Chloride 94 mmol/L (98-107) L 10/24/22 01:08 Carbon Dioxide 27 mmol/L (22-29) 10/24/22 01:08 Anion Gap 20.6 (5-19) H 10/24/22 01:08 BUN 38 mg/dL (6-20) H 10/24/22 01:08 Creatinine 6.1 mg/dL (0.7-1.2) H* 10/24/22 01:08 GFR Calculation 12.6 mL/min (90-130) L 10/24/22 01:08 Glucose 127 mg/dL (65-115) H 10/24/22 01:08 Calculated Osmolality 293 mOsm/kg (285-295) 10/24/22 01:08 Lactic Acid 1.7 mmol/L (0.5-2.2) 10/22/22 04:12 Calcium 8.8 mg/dL (8.5-10.5) 10/24/22 01:08 Magnesium 2.3 mg/dL (1.7-2.3) 10/24/22 01:08 Total Bilirubin 0.8 mg/dL (0.15-1.2) 10/22/22 04:12 AST 57 U/L (0-40) H 10/22/22 04:12 ALT 44 U/L (0-41) H 10/22/22 04:12 Alkaline Phosphatase 67 U/L (40-130) 10/22/22 04:12 Troponin T Baseline 136 ng/L (0-15) H* 10/21/22 19:35 Troponin T 120 Minute 134.2 ng/L (0-15) H 10/21/22 21:22 Delta Troponin T -1.8 ABS# (0-10) L 10/21/22 21:22 Troponin T Hi Sens 6Hr 136.9 ng/L (0-15) H 10/22/22 04:12 Troponin T Hi Sens 6Hr Delta 0.9 ng/L (0-12) 10/22/22 04:12 NT-Pro-B Natriuret Pep > 37643 pg/mL (0-125) H 10/24/22 01:08 Total Protein 7.8 g/dL (6.6-8.7) 10/22/22 04:12 Albumin 4.0 g/dL (3.5-5.2) 10/22/22 04:12 Globulin 3.8 g/dL (1.3-4.6) 10/22/22 04:12 Nasal Influ A H1 2008 PCR Not detected (NOT DETECT) 10/21/22 23: Adenovirus (PCR) Not detected (NOT DETECT) 10/21/22 23: C. pneumoniae DNA (PCR) Not detected (NOT DETECT) 10/21/22 23: Coronavirus 229E (PCR) Not detected (NOT DETECT) 10/21/22 23: Hep Bs Antigen Non-reactive (Nonreactive) 10/22/22 07:36 Hep Bs Antibody 41.7 (11.5-1000) 10/22/22 07:36 Hepatitis C Antibody Non-reactive (Nonreactive) 10/22/22 07:36 Human Metapneumovir PCR Not detected (NOT DETECT) 10/21/22 23:29 Influenza A (H1) PCR Not detected (NOT DETECT) 10/21/22 23: Influenza A (H3) PCR Not detected (NOT DETECT) 10/21/22 23:29 Influenza Type A (PCR) Not detected (NOT DETECT) 10/21/22 23:29 Influenza Type B (PCR) Not detected (NOT DETECT) 10/21/22 23:29 M. pneumoniae (PCR) Not detected (NOT DETECT) 10/21/22 23: Parainfluenza 1 (PCR) Not detected (NOT DETECT) 10/21/22 23: Parainfluenza 2 (PCR) Not detected (NOT DETECT) 10/21/22 23: Parainfluenza 3 (PCR) Not detected (NOT DETECT) 10/21/22 23:29 Parainfluenza 4 (PCR) Not detected (NOT DETECT) 10/21/22 23:29 RSV Type A (PCR) Not detected (NOT DETECT) 10/21/22 23:29 RSV Type B (PCR) Not detected (NOT DETECT) 10/21/22 23:29 Entero/Rhino (PCR) Not detected (NOT DETECT) 10/21/22 23:29 SARS-CoV-2 (PCR) Not detected (NOT DETECT) 10/21/22 23:29 [facility] Test Reference Cancelled 10/22/22 11:11 Vitals Last Vital Signs Temp 97.3 F L 10/24/22 09:19 Pulse 79 10/24/22 09:19 Resp 16 10/24/22 09:19 BP 107/79 10/24/22 09:19 Pulse Ox 96 10/24/22 08:33 O2 Del Method 10/24/22 08:33 O2 Flow Rate 2 10/23/22 08:00 Discharge Plan Discharge Patient Disposition: Home Condition: Stable Prescriptions: New amoxicillin-pot clavulanate 875-125 mg tablet 1 tab PO BID 7 Days Qty: 14 0RF Ivabradine 7.5 mg PO BID 30 Days Qty: 60 0RF Eliquis 5 mg Tablet 5 mg PO Q12H 30 Days Qty: 60 0RF Entresto 24-26 mg Tablet 1 ea PO BID 30 Days Qty: 60 0RF Continued valacyclovir [Valtrex] 500 mg tablet 500 mg PO DAILY PRN (Reason: shingles) 10 Days Qty: 10 3RF Rx Instructions: take for 10 days only if developing a shingles rash albuterol sulfate 90 mcg/actuation HFA aerosol inhaler 2 puff INHALATION Q4H PRN (Reason: Shortness Of Breath) Qty: 6.7 2RF Biktarvy 50-200-25 mg tablet 1 tab PO DAILY 30 Days Qty: 30 6RF metoprolol succinate 100 mg tablet extended release 24 hr 100 mg PO BID Qty: 180 3RF torsemide 100 mg tablet 100 mg PO DAILY Qty: 90 2RF Rx Instructions: Total dose 120 mg daily torsemide 20 mg tablet 20 mg PO DAILY Qty: 90 2RF Rx Instructions: take with 100mg to =120mg sulfamethoxazole-trimethoprim [Bactrim] 400-80 mg tablet 1 tab PO . 90 Days Qty: 60 0RF Rx Instructions: take after dialysis on HD days (DME) Cpap mask, tubing, and supplies See Rx Instructions .Route .MEDSUPPLY Qty: 1 0RF Rx Instructions: As directed (DME) cpap machine See Rx Instructions .Route .MEDSUPPLY Qty: 1 0RF Rx Instructions: As directed nifedipine 30 mg tablet extended release 30 mg PO QPM lidocaine-prilocaine 2.5-2.5 % cream See Rx Instructions .ROUTE .COMPLEX Rx Instructions: as directed as needed cholecalciferol (vitamin D3) 1,250 mcg (50,000 unit) capsule 50,000 unit PO Q7D Rx Instructions: on friday Discharge Orders: Discharge Order (Routine); Ordered 10/24/22 Ordered By: Jurgen Yu Referrals: Elgin Lewis M.D [Physician] - 2 weeks Val Palmer MD [Hospitalist] - 1 month Justin Moreira MD [Hospitalist] - (recurrent dvt) Rebecca Montiel MD [Primary Care Provider] - 1-3 days Discharge Diet: Cardiac Discharge Activity: Resume usual activity Patient Instructions: Opioid Safety Activity Restrictions/Additional Instructions: - For your DVT, discharged on Eliquis 5 mg twice daily, monitor for bloody or black stools -If so please go to the emergency room -See your primary care provider for recheck hemoglobin in 1 week -Please follow-up with cardiology in 2 weeks -Please follow-up with your regular dialysis schedule -Follow-up with infectious disease in 1 month -Discharged on antibiotics for pneumonia Discharge Attestations Time Spent in Discharge Care*: greater than 30 min Status at Discharge: Cognitive status at discharge: cognitively intact , Behavioral status at discharge: cooperative , Quality Metrics Clinical Quality Measures [ Venous Thromboembolism { Contraindication to Overlap Therapy: Overlap treatment not indicated; VTE Discharge Education: Education about anticoagulant therapy/Care Notes given;}. No reported AMI, CVA or VTE this stay] Coding Level of Care Code Acute Chg FW DC note Diagnoses Acute exacerbation of CHF (congestive heart failure) I50.9 Atrial fibrillation with rapid ventricular response I48.91 ESRD (end stage renal disease) on dialysis N18.6; Z99.2 DVT (deep venous thrombosis) I82.409
--- NOTE | 2022-10-24 11:55 | PC.NURSE ---
Eliquis coupon provided to pt 30 day coupon for eliquis given to pt.
[2022-10-24] MEDS: TORSEmide 20 mg Tablet 120 MG PO (13:00)
--- NOTE | 2022-10-24 13:44 | PC.NURSE ---
Discharge papers Informed pt and on follow-up appointments schedules.Called Cancer treatment for an appointment w/ Dr Moreira as ordered by hospitalist. Left a voicemail on scheduling department for Lisa to notify the pt on the appointment. Discharge meds instructed to pt.
--- NOTE | 2022-10-24 15:06 | PM.PN ---
Subjective Subjective: doing well Medications: Reviewed: Yes Vitals/I&O/Wt Last Vital Signs Temp 98.2 F 10/24/22 12:55 Pulse 70 10/24/22 12:55 Resp 16 10/24/22 12:55 BP 106/71 10/24/22 12:55 Pulse Ox 98 10/24/22 12:00 O2 Del Method 10/24/22 12:00 O2 Flow Rate 2 10/23/22 08:00 10/24/22 10/24/22 10/24/22 06:59 14:59 22:59 Intake Total 374 / 1854 1140 / 1140 Output Total 3300 / 3300 Balance 374 / -1253 -2160 / -2160 Weight last 48 hrs Weight 59.5 kg Weight 62.3 kg Weight 62.9 kg Data 10/24/22 01:08 10/24/22 01:08 A&P Assessment and plan (1) ESRD (end stage renal disease) on dialysis: Plan 1. ESRD, usual HD T/Th/S. Tunneled HD catheter and AVF 2. Hyperkalemia 3. Pneumonia 4. FLuid overload 5. A flutter, cardiomyopahty, sleep apnea 6. Anemia 7. HIV REC; HD today: 3.5 h, 2K, 2L UF as BP tolerates. No IVs, BPs, blood draws AVF arm. . Attestations Medical Necessity Statement*: Patient requires hospitalization for DVT, fluid overload, hyperkalemia requiring dialysis requiring heparin drip, NSTEMI Coding Level of Care Code Acute Code for Chg Fwd Diagnoses ESRD (end stage renal disease) on dialysis N18.6; Z99.2
[2022-10-25 00:10] LABS: Absolute CD4 + Cells 165 cells/uL (490-1740); Absolute Lymphocytes 1033 cells/uL (850-3900); Absoulte CD8+Cells 618 cells/uL (180-1170); CD4/CD8 Ratio 0.27 (0.86-5.00); Percent CD8 60 % (12-42); Percentage CD4 16 % (30-61)
[2022-10-25 21:25] LABS: HIV RNA (CPY/ML) NOT DETECTED (NOT DETECTED); HIV RNA LOG NOT DETECTED copies/mL (NOT DETECTED)
== END 2022-10-24 13:39 | disposition home or self-care (01) | DRG 308 ==
LOC: ER 10-22 00:09 → CSU 10-22 00:20
PROVIDERS: Emergency Medicine; Internal Medicine; Admitting Provider Student in an Organized Health Care Education/Training Program; Emergency Provider Family Medicine; PCP Family Medicine; Visit Provider Family Medicine
DX: I48.0 Paroxysmal atrial fibrillation (principal); I50.23 Acute on chronic systolic (congestive) heart failure; J18.9 Pneumonia, unspecified organism; N18.6 End stage renal disease; I82.412 Acute embolism and thrombosis of left femoral vein; B20 Human immunodeficiency virus [HIV] disease; I42.8 Other cardiomyopathies; Z99.2 Dependence on renal dialysis; E87.5 Hyperkalemia; D63.1 Anemia in chronic kidney disease; Z79.899 Other long term (current) drug therapy; Z85.47 Personal history of malignant neoplasm of testis; Z86.718 Personal history of other venous thrombosis and embolism; Z95.828 Presence of other vascular implants and grafts; Z79.51 Long term (current) use of inhaled steroids; I08.1 Rheumatic disorders of both mitral and tricuspid valves; Z87.891 Personal history of nicotine dependence; Z90.79 Acquired absence of other genital organ(s); Z92.21 Personal history of antineoplastic chemotherapy; Z86.74 Personal history of sudden cardiac arrest; Z91.041 Radiographic dye allergy status
CPT/HCPCS: 12345; 36415; 71045; 71250; 71275; 74018; 80048; 80053; 81003; 83605; 83735; 83880; 84484; 85025; 85378; 85610; 85730; 86360; 86706; 86803; 87040; 87086; 87340; 87400; 87426; 87486; 87536; 87581; 87633; 90935; 93005; 93306; 93970; 96365; 96367; 96372; 96375; 96376; 99285; J0610; J0696; J1200; J1644; J1815; J2270; J2405; J2930; J3490; Q0144; Q3014; Q9967

== ENCOUNTER 2022-11-22 08:17 | Oncology outpatient (recurring) (ONCR) | payer MEDICARE, MEDICAID, SELFPAY | END 2022-11-26 23:59 | disposition home or self-care (01) | PROVIDERS: PCP Family Medicine; Visit Provider Internal Medicine Medical Oncology | DX: I82.402 Acute embolism and thrombosis of unspecified deep veins of left lower extremity (principal); Z85.47 Personal history of malignant neoplasm of testis; N18.6 End stage renal disease; Z92.21 Personal history of antineoplastic chemotherapy; Z92.3 Personal history of irradiation; Z99.2 Dependence on renal dialysis; B20 Human immunodeficiency virus [HIV] disease; Z86.19 Personal history of other infectious and parasitic diseases; Z90.79 Acquired absence of other genital organ(s); Z95.818 Presence of other cardiac implants and grafts; R61 Generalized hyperhidrosis | CPT/HCPCS: 99205 ==

== ENCOUNTER 2023-03-31 13:24 | Oncology outpatient (recurring) (ONCR) | payer MEDICARE, MEDICAID, SELFPAY | END 2023-04-28 23:59 | disposition home or self-care (01) | PROVIDERS: PCP Family Medicine; Visit Provider Internal Medicine Medical Oncology | DX: I82.502 Chronic embolism and thrombosis of unspecified deep veins of left lower extremity (principal); N18.6 End stage renal disease; Z99.2 Dependence on renal dialysis; Z79.01 Long term (current) use of anticoagulants; Z85.47 Personal history of malignant neoplasm of testis; Z92.21 Personal history of antineoplastic chemotherapy | CPT/HCPCS: 99214 ==

== ENCOUNTER → 2023-04-07 10:56 | Outpatient (BNVA) | payer MEDICARE, MEDICAID, SELFPAY | PROVIDERS: PCP Family Medicine; Visit Provider Nurse Practitioner Family | DX: R50.9 Fever, unspecified (principal); J02.9 Acute pharyngitis, unspecified; J32.9 Chronic sinusitis, unspecified | CPT/HCPCS: 87071; 87400; 87426; 87880 ==

== ENCOUNTER 2023-04-20 21:16 | Emergency (ER) | payer MEDICARE, MEDICAID, SELFPAY ==
--- NOTE | 2023-04-20 21:21 | XRR_ITS ---
PROCEDURE INFORMATION: Exam: XR Chest Exam date and time: 04/20/2023 10:01 PM Age: 38 years old Clinical indication: Shortness of breath; Additional info: SOB TECHNIQUE: Imaging protocol: Radiologic exam of the chest. Views: 1 view. COMPARISON: CR (CHEST, ) 10/21/2022 7:29 PM FINDINGS: Lungs: There is mild pulmonary venous congestion. No acute pulmonary infiltrate is identified. The left lower lobe pneumonia demonstrated on the previous study has cleared. Pleural spaces: Unremarkable. No pleural effusion. No pneumothorax. Heart/Mediastinum: The heart is moderately enlarged. Bones/joints: Unremarkable. XR/XR chest 1V portable [id number] IMPRESSION: Cardiomegaly and mild congestive failure.
[2023-04-20 21:22] VITALS: BP 145/94; PULSE 128; RESP 18; TEMP 36.7; O2SAT 98; BMI 21.2
[2023-04-20 21:40] LABS: Basophils % 0.7 %; Eosinophils # 0.1 10^3/uL (0.0-0.8); Eosinophils % 2.8 %; Hematocrit 31.9 % (42.0-52.0); Lymphocytes % 23.2 %; Mean Corpuscular HGB Conc 31.3 g/dL (30.0-36.0); Mean Corpuscular Volume 98.8 fl (80-94); Mean Platelet Volume 10.3 fL (7.4-10.4); Monocytes # 0.2 10^3/uL (0.2-0.9); Monocytes % 5.4 %; Neutrophils # 2.88 10^3/uL (1.8-7.7); Neutrophils % 67.7 %; Nucleated Red Blood Cells % 0.7 %; Platelet Count 143 10^3/cmm (130-400); Red Blood Count 3.23 10^6/uL (4.1-5.3); Red Cell Distribution Width 19.5 % (12.1-15.1); White Blood Count 4.3 10^3/uL (4.0-10.0)
[2023-04-20 21:52] LABS: INR 1.16 (0.8-1.2)
[2023-04-20 22:12] LABS: Alanine Aminotransferase 16 U/L (0-41); Alkaline Phosphatase 58 U/L (40-130); Anion Gap 20.7 (5-19); Aspartate Amino Transferase 26 U/L (0-40); Blood Urea Nitrogen 34 mg/dL (6-20); Carbon Dioxide 30 mmol/L (22-29); Chloride 91 mmol/L (98-107); Globulin 3.1 g/dL (1.3-4.6); Glomerular Filtration Rate 8.8 mL/min (90-130); Glucose 87 mg/dL (65-115); Osmolality Calculated 289 mOsm/kg (285-295); Potassium 5.7 mmol/L (3.5-5.1); Sodium 136 mmol/L (136-145); Total Bilirubin 0.7 mg/dL (0.15-1.2); Total Protein 7.1 g/dL (6.6-8.7)
[2023-04-20 22:19] LABS: Troponin(5th) Baseline 104 ng/L (0-15)
[2023-04-20 22:36] LABS: NT Pro B Type Natriuretic Pept > 70000 pg/mL (0-125)
--- NOTE | 2023-04-20 22:58 | ECG_ITS ---
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 Measurements Intervals [employer] Rate: 122 P: 76 [place]: 180 QRS: 37 QRSD: 78 T: 86 QT: 312 QTc: 445 Interpretive Statements SINUS TACHYCARDIA VOLTAGE CRITERIA FOR LVH [MEETS CRITERIA IN ONE OF: R(aVL), S(V1), R(V5), R(V5/V6)+S(V1)] NONSPECIFIC T-WAVE ABNORMALITY Compared to ECG 10/22/2022 02:19:58 Atrial abnormality no longer present T-wave abnormality still present Electronically Signed On 04-21-2023 21:31:57 CDT by Shelbi Johnson M.D. [id number]
--- NOTE | 2023-04-20 22:59 | ECG_ITS ---
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 Measurements Intervals [place] Rate: 120 P: 80 CO: 172 QRS: 41 QRSD: 82 T: 88 QT: 316 QTc: 446 Interpretive Statements SINUS TACHYCARDIA VOLTAGE CRITERIA FOR LVH [MEETS CRITERIA IN ONE OF: R(aVL), S(V1), R(V5), R(V5/V6)+S(V1)] NONSPECIFIC T-WAVE ABNORMALITY Compared to ECG 04/20/2023 22:58:48 No significant changes Electronically Signed On 04-21-2023 21:12:46 CDT by Shelbi Johnson M.D. [id number]
--- NOTE | 2023-04-20 23:02 | ED_ITS ---
HPI - SOB/Dyspnea General: Chief Complaint: Shortness of Breath/Dyspnea Stated Complaint: sob Time Seen by Provider: 04/20/23 22:01 Source: patient Mode of arrival: ambulatory Limitations: no limitations History of Present Illness: HPI Narrative: 38-year-old male has a history of end-stage renal disease he gets dialysis Friday did go on Friday states that he feels like he is getting pneumonia. He states he had pneumonia before and had a cough congestion over the last 2 days. He denies any severe dyspnea he has had some wheezing. No vomiting no diarrhea no chest pain Associated symptoms: Deny abdominal pain, chest pain, fever(s), nausea or vomiting Review of Systems Const: Denies: fever(s), chills, body aches or change in appetite Eyes: Denies: blurry vision or eye discomfort ENMT: Denies: throat pain or dental pain Card: Denies: chest pain Resp: Denies: dyspnea GI: Denies: abdominal pain, nausea, vomiting or diarrhea : Denies: dysuria Musc: Denies: neck pain or back pain Skin/Breast: Denies: rash Neuro: Denies: headache(s) Psych: Denies: depression Wilver/Lymph: Denies: easy bruising All/Imm: Denies: urticaria PFSH ED PFSH: Medical History Anemia in chronic kidney disease Atrial fibrillation AV fistula Cardiac arrest Deep vein thrombosis of left lower extremity ESRD (end stage renal disease) on dialysis Hemoptysis History of testicular cancer Treated with orchiectomy, chemotherapy, and retroperitoneal lymph node dissection HIV carrier Hyperkalemia Nonischemic cardiomyopathy Sleep apnea Surgical History History of abdominal surgery (05/2009) Retroperitoneal lymph node dissection History of inferior vena caval filter placement History of orchiectomy, unilateral (09/2008) Right unilateral orchiectomy with right inguinal lymph node biopsy History of removal of Port-a-Cath S/P hemodialysis catheter insertion (11/30/20) R IJ catheter exchange Family History Denies family history of Anesthesia complication Bleeding disorder Social History Smoking and tobacco status: former smoker Quit status (tobacco): has quit using tobacco Year quit tobacco: 6 + years Former quit date comment: Smoker for 20+ years Alcohol intake: never Substance/Drug Use: current Adopted: No Caregiver/support person: Yes Lives independently: Yes Housing: House Current occupational status: disabled Pets and animals: No Sexually active: Yes Do you think of yourself as: Straight/Heterosexual Current gender identity: Male Josefa/Confucianism: Amish Physical Exam Const: COMMON NORMALS: no acute distress, patient oriented x3 and healthy appearing HENMT: COMMON NORMALS: normocephalic and atraumatic HEAD & SCALP: normocephalic and atraumatic Neck/C-Spine: COMMON NORMALS: full ROM and supple Chest: COMMONS NORMALS: normal inspection of the chest and normal palpation of entire chest wall Resp: COMMON NORMALS: normal respiratory effort, No retractions and No use of accessory muscles AUSCULTATION: wheezes Cardio: COMMON NORMALS: regular rhythm and No murmurs present (Cardio) RATE: tachycardic RHYTHM: regular rhythm GI: COMMON NORMALS: Normal to inspection, nondistended, normoactive bowel so unds present, Soft to palpation, non-tender and no masses PALPATION: Yes Soft to palpation Extremity: COMMON NORMALS: normal to inspection and full ROM Neuro: COMMON NORMALS: patient oriented x3, moves all extremities and no focal motor deficits Psych: COMMON NORMALS: mental status grossly normal, Normal thought process present and cooperative THOUGHT PROCESS: Normal thought process present Skin: COMMON NORMALS: no rashes or lesions noted and no wounds GENERAL SKIN EXAM: no rashes or lesions noted Course Vital Signs: Vital signs: Vital Signs Temperature 98.1 F 04/20/23 21:22 Pulse Rate 128 H 04/20/23 21:22 Respiratory Rate 18 04/20/23 21:22 Blood Pressure 145/94 04/20/23 21:22 Pulse Oximetry 98 04/20/23 21:22 Oxygen Delivery Me thod Room Air 04/20/23 21:22 MDM - SOB/Dyspnea Medical Decision Making Patient presents here with a bronchitis along with end-stage renal disease on dialysis he has a mild hyperkalemia no severe hyperkalemia his EKG shows no changes he states he feels like he has pneumonia x-ray shows some slight congestion he wants an antibiotic we will prescribe him doxycycline along with albuterol did give him Decadron here he is stable for discharge he is to return if worsening Medical Records I reviewed the patient's medical records. Lab Data I reviewed the patient's lab results. 04/20/23 21:35 04/20/23 21:35 Labs/Radiology: Radiology Impressions Chest X-Ray 04/20/23 21:21 IMPRESSION: Cardiomegaly and mild congestive failure. Laboratory Results WBC 4.3 10^3/uL (4.0-10.0) 04/20/23 21:35 RBC 3.23 10^6/uL (4.1-5.3) L 04/20/23 21:35 Hgb 10.0 g/dL (11.7-16.6) L 04/20/23 21:35 Hct 31.9 % (42.0-52.0) L 04/20/23 21:35 MCV 98.8 fl (80-94) H 04/20/23 21:35 MCH 31.0 pg (28.0-34.0) 04/20/23 21:35 MCHC 31.3 g/dL (30.0-36.0) 04/20/23 21:35 RDW 19.5 % (12.1-15.1) H 04/20/23 21:35 Plt Count 143 10^3/cmm (130-400) 04/20/23 21:35 MPV 10.3 fL (7.4-10.4) 04/20/23 21:35 Neut % (Auto) 67.7 % 04/20/23 21:35 Lymph % (Auto) 23.2 % 04/20/23 21:35 [place] % (Auto) 5.4 % 04/20/23 21:35 Eos % (Auto) 2.8 % 04/20/23 21:35 Baso % (Auto) 0.7 % 04/20/23 21:35 Neut # (Auto) 2.88 10^3/uL (1.8-7.7) 04/20/23 21:35 Lymph # (Auto) 1.0 10^3/uL (0.8-4.8) 04/20/23 21:35 [place] # (Auto) 0.2 10^3/uL (0.2-0.9) 04/20/23 21:35 Eos # (Auto) 0.1 10^3/uL (0.0-0.8) 04/20/23 21:35 Baso # (Auto) 0.0 10^3/uL (0.0-0.1) 04/20/23 21:35 Nucleated RBC % (auto) 0.7 % 04/20/23 21:35 Nucleated RBCs # 0.0 /100WBC 04/20/23 21:35 PT 15.20 SECONDS (12.1-14.9) H 04/20/23 21:35 INR 1.16 (0.8-1.2) 04/20/23 21:35 Sodium 136 mmol/L (136-145) 04/20/23 21:35 Potassium 5.7 mmol/L (3.5-5.1) H 04/20/23 21:35 Chloride 91 mmol/L (98-107) L 04/20/23 21:35 Carbon Dioxide 30 mmol/L (22-29) H 04/20/23 21:35 Anion Gap 20.7 (5-19) H 04/20/23 21:35 BUN 34 mg/dL (6-20) H 04/20/23 21:35 Creatinine 8.3 mg/dL (0.7-1.2) H* 04/20/23 21:35 GFR Calculation 8.8 mL/min (90-130) L 04/20/23 21:35 Glucose 87 mg/dL (65-115) 04/20/23 21:35 Calculated Osmolality 289 mOsm/kg (285-295) 04/20/23 21:35 Calcium 10.0 mg/dL (8.5-10.5) 04/20/23 21:35 Total Bilirubin 0.7 mg/dL (0.15-1.2) 04/20/23 21:35 AST 26 U/L (0-40) 04/20/23 21:35 ALT 16 U/L (0-41) 04/20/23 21:35 Alkaline Phosphatase 58 U/L (40-130) 04/20/23 21:35 Troponin T Baseline 104 ng/L (0-15) H* 04/20/23 21:35 NT-Pro-B Natriuret Pep > 04291 pg/mL (0-125) H 04/20/23 21:35 Total Protein 7.1 g/dL (6.6-8.7) 04/20/23 21:35 Albumin 4.0 g/dL (3.5-5.2) 04/20/23 21:35 Globulin 3.1 g/dL (1.3-4.6) 04/20/23 21:35 Discharge Plan Discharge Patient Disposition: Home Clinical Impression: Bronchitis Condition: Stable Prescriptions: New albuterol sulfate 90 mcg/actuation HFA aerosol inhaler 2 inh INHALATION Q6H PRN (Reason: shortness of breath or wheezing) Qty: 8 0RF doxycycline hyclate 100 mg tablet 100 mg PO BID 7 Days Qty: 14 0RF No Action valacyclovir [Valtrex] 500 mg tablet 500 mg PO DAILY PRN (Reason: shingles) 10 Days Qty: 10 3RF Rx Instructions: take for 10 days only if developing a shingles rash albuterol sulfate 90 mcg/actuation HFA aerosol inhaler 2 puff INHALATION Q4H PRN (Reason: Shortness Of Breath) Qty: 6.7 2RF Biktarvy 50-200-25 mg tablet 1 tab PO DAILY 30 Days Qty: 30 6RF azithromycin 250 mg tablet See Rx Instructions PO .COMPLEX Qty: 6 0RF Rx Instructions: For 250 mg dose pack: take 500 mg today (day 1), then 250 mg for 4 days (days 2-5) PO torsemide 100 mg tablet 100 mg PO DAILY Eliquis 5 mg tablet 5 mg PO Q12H 30 Days Qty: 60 3RF metoprolol succinate 100 mg tablet extended release 24 hr 100 mg PO BID Qty: 60 0RF Rx Instructions: MUST have follow-up for further refills lidocaine-prilocaine 2.5-2.5 % cream See Rx Instructions .ROUTE .COMPLEX Rx Instructions: as directed as needed Discharge Orders: Discharge ED (Routine); Ordered 04/20/23 Ordered By: Renee Dsouza Referrals: Rebecca Montiel MD [Primary Care Provider] - 1-3 days Discharge Diet: Advance as tolerated Discharge Activity: Resume usual activity Patient Instructions: Acute Bronchitis (ED) Coding Level of Care Code 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
[2023-04-20] MEDS: doxycycline 100 mg Tablet PO (23:06)
[2023-04-20] MEDS: dexamethasone 10 mg/mL INJ IM (23:07)
[2023-04-20] MEDS: albuterol 8 gm MDI 2 PUFF INHALATION (23:15)
[2023-04-20 23:18] VITALS: PULSE 78; RESP 16; O2SAT 97
[2023-04-20 23:48] VITALS: PULSE 85; RESP 16; O2SAT 96
[2023-04-21 00:05] LABS: Troponin 5 2HR Delta -3.5 ABS# (0-10)
[2023-04-21 00:07] LABS: Troponin 5 2HR 100.5 ng/L (0-15)
== END 2023-04-20 23:26 | disposition home or self-care (01) ==
PROVIDERS: Emergency Provider Emergency Medicine; PCP Family Medicine
DX: J40 Bronchitis, not specified as acute or chronic (principal); Z87.891 Personal history of nicotine dependence; N18.6 End stage renal disease; Z99.2 Dependence on renal dialysis; Z85.47 Personal history of malignant neoplasm of testis; B20 Human immunodeficiency virus [HIV] disease
CPT/HCPCS: 36415; 71045; 80053; 83880; 84484; 85025; 85610; 93005; 94640; 96372; 99285; J1100; J3535

== ENCOUNTER 2023-05-19 09:17 | Outpatient (CLI) | payer MEDICARE, MEDICAID, SELFPAY ==
--- NOTE | 2023-05-19 09:32 | XRR_ITS ---
PROCEDURE INFORMATION: Exam: XR Chest Exam date and time: 05/19/2023 9:43 AM Age: 38 years old Clinical indication: Shortness of breath; Patient HX: Cancer (type)--testicular, stomach TECHNIQUE: Imaging protocol: Radiologic exam of the chest. Views: 2 views. COMPARISON: CR (CHEST, ) 04/20/2023 10:01 PM FINDINGS: Lungs: Unremarkable. No consolidation. Pleural spaces: Unremarkable. No pleural effusion. No pneumothorax. Heart/Mediastinum: The cardiac silhouette is enlarged. Vasculature: An IVC filter is present at the T12-L1 level. Bones/joints: Unremarkable. XR/XR chest 2V* [id number] IMPRESSION: Cardiomegaly. No acute abnormality.
== END 2023-05-19 09:18 | disposition home or self-care (01) ==
PROVIDERS: PCP Family Medicine; Visit Provider Registered Nurse
DX: R06.02 Shortness of breath (principal); I51.7 Cardiomegaly
CPT/HCPCS: 71046

== ENCOUNTER → 2023-06-11 11:43 | Outpatient (BNVA) | payer MEDICARE, MEDICAID, SELFPAY | PROVIDERS: PCP Family Medicine; Visit Provider Internal Medicine Cardiovascular Disease | DX: I82.402 Acute embolism and thrombosis of unspecified deep veins of left lower extremity (principal); I50.9 Heart failure, unspecified; Z85.47 Personal history of malignant neoplasm of testis; R94.31 Abnormal electrocardiogram [ECG] [EKG]; N18.6 End stage renal disease; Z99.2 Dependence on renal dialysis; J44.9 Chronic obstructive pulmonary disease, unspecified; Z87.891 Personal history of nicotine dependence; G47.30 Sleep apnea, unspecified; B20 Human immunodeficiency virus [HIV] disease; I42.8 Other cardiomyopathies; I48.91 Unspecified atrial fibrillation; Z79.01 Long term (current) use of anticoagulants | CPT/HCPCS: 99214 ==

== ENCOUNTER 2023-06-26 10:07 | Outpatient (CLI) | payer MEDICARE, MEDICAID, SELFPAY ==
--- NOTE | 2023-06-26 11:15 | USCV_ITS ---
Vivek Harden Age: 38 Gender: M : 1985 Exam Date: 06/26/2023 10:23 Ordering Phys: Mark Mckeon MD ([email or web address]) Technologist: Braden Jung Exam Location: [facility] [place] Indication: renal failure BP: / HR: 52 Rhythm: Sinus Technical Quality: Adequate MEASUREMENTS (Male / Female) Normal Values 2D ECHO LV Diastolic Diameter PLAX 6.0 cm 4.2 - 5.9 / 3.9 - 5.3 cm LV Systolic Diameter PLAX 5.1 cm IVS Diastolic Thickness 1.0 cm 0.6 - 1.0 / 0.6 - 0.9 cm IVS Systolic Thickness 1.7 cm LVPW Diastolic Thickness 1.1 cm 0.6 - 1.0 / 0.6 - 0.9 cm LVPW Systolic Thickness 1.7 cm LV Ejection Fraction 2D Teich 32.3 % LV Ejection Fraction MOD 2C 36.7 % LV Ejection Fraction 2C AL 37.4 % LA Diameter 4.7 cm IVC Diameter 3.3 cm M-MODE LV Diastolic Diameter MM 6.6 cm 4.2 - 5.9 / 3.9 - 5.3 cm IVS Diastolic Thickness MM 1.2 cm 0.6 - 1.0 / 0.6 - 0.9 cm LVPW Diastolic Thickness MM 1.5 cm 0.6 - 1.0 / 0.6 - 0.9 cm RV Diastolic Diameter MM 2.8 cm Aortic Annulus Diameter 3.1 cm LA Ao Ratio MM 1.6 MV E Point Septal Separation 1.6 cm DOPPLER AV Peak Velocity 156.0 cm/s LVOT Peak Velocity 85.0 cm/s MV Area PHT 5.0 cm squared Mitral E to A Ratio 1.2 MV E' Velocity 55.5 cm/s Mitral E to MV E' Ratio 10.4 Mitral E to LV E' Lateral Ratio 8.7 Mitral E to LV E' Septal Ratio 13.1 TR Peak Velocity 277.0 cm/s TR Peak Gradient 30.7 mmHg TV Peak E Velocity 117.0 cm/s Right Atrial Pressure 3.0 mmHg Pulmonary Artery Systolic Pressu 33.7 mmHg RV Acceleration Time 0.1 s FINDINGS Left Ventricle Moderately increased left ventricular cavity size. Moderately decreased left ventricular systolic function. Left ventricular ejection fraction is estimated at 30 %. Moderate global left ventricular hypokinesis. Grade II/IV diastolic dysfunction, moderately elevated filling pressures. Flattened septum in diastole consistent with right ventricle volume overload. Right Ventricle Moderately dilated right ventricle with moderately decraesed right ventricular systolic function. Right ventricular systolic pressure 33.7 mmHg. Right Atrium Severely increased right atrial size. Interatrial septum deviation from right to left. Left Atrium Moderately increased left atrial size. Mitral Valve Structurally normal mitral valve. No mitral valve stenosis. Moderate mitral valve regurgitation. Aortic Valve Structurally normal trileaflet aortic valve. No aortic valve stenosis. No aortic valve regurgitation. Tricuspid Valve Structurally normal tricuspid valve. No tricuspid valve stenosis. Severe tricuspid valve regurgitation. Pulmonic Valve Structurally normal pulmonic valve. No pulmonary valve stenosis. Trace pulmonary valve regurgitation. Pericardium No pericardial effusion. Aorta Normal size aortic root and proximal ascending aorta. IVC Severely dilated IVC. CONCLUSIONS 1. Moderately increased left ventricular cavity size. Moderately decreased left ventricular systolic function. Left ventricular ejection fraction is estimated at 30 %. Moderate global left ventricular hypokinesis. Grade II diastolic dysfunction, moderately elevated filling pressures. Flattened septum in diastole consistent with right ventricle volume overload. 2. Moderately dilated right ventricle with moderately decraesed right ventricular systolic function. 3. Moderate mitral valve regurgitation. 4. Severe tricuspid valve regurgitation. 5. Compared to study dated , left and right ventricular systolic function seems to have decreased and there is severe TR now. Shelbi Johnson MD (Electronically Signed) Final Date: 27 June 2023 12:45 S
== END 2023-06-26 10:08 | disposition home or self-care (01) ==
LOC: RAD 10:07
PROVIDERS: PCP Family Medicine; Visit Provider Internal Medicine Cardiovascular Disease
DX: I50.9 Heart failure, unspecified (principal); I34.0 Nonrheumatic mitral (valve) insufficiency; I07.1 Rheumatic tricuspid insufficiency
CPT/HCPCS: 93306

== ENCOUNTER → 2023-12-02 14:51 | Outpatient (BNVA) | payer MEDICARE, MEDICAID, SELFPAY | PROVIDERS: PCP Family Medicine; Visit Provider Family Medicine | DX: R53.83 Other fatigue (principal); N52.9 Male erectile dysfunction, unspecified | CPT/HCPCS: 80053; 84403; 85025 ==

== ENCOUNTER → 2024-02-04 10:26 | Outpatient (BNVA) | payer MEDICARE, SELFPAY | PROVIDERS: PCP Family Medicine; Visit Provider Nurse Practitioner Family | DX: R50.9 Fever, unspecified (principal); R05.9 Cough, unspecified; J18.9 Pneumonia, unspecified organism | CPT/HCPCS: 71046; 87400 ==

== ENCOUNTER → 2024-02-12 14:27 | Outpatient (BNVA) | payer MEDICARE, SELFPAY | PROVIDERS: PCP Family Medicine; Visit Provider Internal Medicine | DX: I42.8 Other cardiomyopathies (principal); I48.91 Unspecified atrial fibrillation; I82.402 Acute embolism and thrombosis of unspecified deep veins of left lower extremity; I07.1 Rheumatic tricuspid insufficiency; Z87.891 Personal history of nicotine dependence | CPT/HCPCS: 99214 ==

== ENCOUNTER 2024-05-04 06:27 | Emergency (ER) | payer SELFPAY ==
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
[2024-05-04 06:55] VITALS: BP 127/105; PULSE 111; RESP 20; TEMP 36.8; O2SAT 96; BMI 21.2
[2024-05-04 07:06] VITALS: BP 127/105; PULSE 111; RESP 20; TEMP 36.8; O2SAT 96
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
--- NOTE | 2024-05-04 07:14 | XR_ITS ---
WS: [id number] LEFT KNEE: 3 VIEW(S) TECHNIQUE: AP, oblique(s) and lateral. HISTORY: pain COMPARISON: None available. No fracture or dislocation. No joint space narrowing or osteophytes. No joint effusion. No soft tissue abnormality. XR/XR knee LT 3V* [id number] IMPRESSION: Normal LEFT knee.
[2024-05-04] MEDS: morphine 4 mg/mL SDV 1 mL IVP (07:23)
[2024-05-04] MEDS: ondansetron 2 mg/ML SDV 2 mL 4 MG IVP (07:23)
[2024-05-04 07:26] LABS: Basophils % 0.8 %; Eosinophils # 0.1 10^3/uL (0.0-0.8); Eosinophils % 2.9 %; Hematocrit 38.1 % (37-53); Lymphocytes # 0.4 10^3/uL (0.8-4.8); Lymphocytes % 15.7 %; Mean Corpuscular HGB Conc 30.2 g/dL (30-55); Mean Corpuscular Hemoglobin 30.1 pg (27-33); Mean Corpuscular Volume 99.7 fl (82-101); Monocytes # 0.1 10^3/uL (0.2-0.9); Monocytes % 3.7 %; Neutrophils # 1.86 10^3/uL (1.8-7.7); Neutrophils % 76.9 %; Nucleated Red Blood Cells % 0 %; Platelet Count 56 10^3/cmm (157-399); Red Blood Count 3.82 10^6/uL (3.85-5.65); Red Cell Distribution Width 16.9 % (12.1-15.1); White Blood Count 2.42 10^3/uL (3.29-11.43)
[2024-05-04] MEDS: diphenhydrAMINE 50 mg/mL SDV 1mL IVP (07:28)
[2024-05-04] MEDS: methylPREDNISolone sod succ 40 mg/mL INJ IVP (07:28)
--- NOTE | 2024-05-04 07:31 | PC.NURSE ---
PATIENT PLACED ON 3 L NC AFTER DROPPING TO 88% AFTER MORPHINE. PATIENT STATES HE ALSO WEARS O2 DURING DIALYSIS APPOINTMENTS.
[2024-05-04 07:42] LABS: Alanine Aminotransferase 13 U/L (0-41); Albumin Level 3.8 g/dL (3.5-5.2); Alkaline Phosphatase 100 U/L (40-130); Anion Gap 22.3 (5-19); Aspartate Amino Transferase 28 U/L (0-40); Blood Urea Nitrogen 30 mg/dL (6-20); Calcium 9.3 mg/dL (8.5-10.5); Carbon Dioxide 24 mmol/L (22-29); Chloride 95 mmol/L (98-107); Creatinine Clr Calc Pharmacy 10.6068; Globulin 4.2 g/dL (1.3-4.6); Glomerular Filtration Rate 8.2 mL/min (90-130); Glucose 88 mg/dL (65-115); Osmolality Calculated 290 mOsm/kg (285-295); Potassium 4.3 mmol/L (3.5-5.1); Sodium 137 mmol/L (136-145); Total Bilirubin 1.2 mg/dL (0.15-1.2)
[2024-05-04] MEDS: iohexol 350 mg/mL 500 mL Btl (per mL) IV (08:15)
[2024-05-04 09:04] VITALS: BP 124/94; PULSE 112; RESP 16; O2SAT 96
[2024-05-04 09:38] VITALS: BP 123/98; PULSE 109; RESP 16; O2SAT 99
== END 2024-05-04 09:39 | disposition home or self-care (01) ==
PROVIDERS: Emergency Provider Family Medicine; PCP Family Medicine
DX: Z04.1 Encounter for examination and observation following transport accident (principal); D69.6 Thrombocytopenia, unspecified; Z85.47 Personal history of malignant neoplasm of testis; B20 Human immunodeficiency virus [HIV] disease; N18.6 End stage renal disease; Z99.2 Dependence on renal dialysis; I42.8 Other cardiomyopathies; Z87.891 Personal history of nicotine dependence; Z79.01 Long term (current) use of anticoagulants; V89.2XXA Person injured in unspecified motor-vehicle accident, traffic, initial encounter
CPT/HCPCS: 70450; 71260; 72125; 73562; 73630; 74177; 80053; 85025; 96374; 96375; 99285; J1200; J2270; J2405; J2919; Q9967

== ENCOUNTER 2024-06-11 09:04 | Oncology outpatient (recurring) (ONCR) | payer MEDICARE, SELFPAY ==
[2024-06-11 10:32] LABS: Eosinophils # 0.1 10^3/uL (0.0-0.8); Hematocrit 33.7 % (37-53); Lymphocytes # 0.3 10^3/uL (0.8-4.8); Mean Corpuscular HGB Conc 30.6 g/dL (30-55); Mean Corpuscular Hemoglobin 30.1 pg (27-33); Mean Corpuscular Volume 98.5 fl (82-101); Mean Platelet Volume 13.3 fL (7.4-10.4); Monocytes # 0.1 10^3/uL (0.2-0.9); Neutrophils # 1.49 10^3/uL (1.8-7.7); Neutrophils % 74.5 %; Nucleated Red Blood Cells % 0 %; Platelet Count 72 10^3/cmm (157-399); Red Blood Count 3.42 10^6/uL (3.85-5.65)
[2024-06-11 10:38] LABS: Erythrocyte Sedimentation Rate 29 mm/hr (0-10)
[2024-06-11 10:41] LABS: Reticulocyte % 1.5 % (0.5-2.0)
[2024-06-11 10:49] LABS: Alanine Aminotransferase 19 U/L (0-41); Albumin Level 4.1 g/dL (3.5-5.2); Alkaline Phosphatase 120 U/L (40-130); Anion Gap 15.7 (5-19); Aspartate Amino Transferase 32 U/L (0-40); Blood Urea Nitrogen 19 mg/dL (6-20); C Reactive Protein 5.7 mg/L (0.0-4.9); Calcium 8.8 mg/dL (8.5-10.5); Carbon Dioxide 31 mmol/L (22-29); Chloride 95 mmol/L (98-107); Creatinine Clr Calc Pharmacy 15.8234; Globulin 4.4 g/dL (1.3-4.6); Glomerular Filtration Rate 13.2 mL/min (90-130); Glucose 84 mg/dL (65-115); Lactate Dehydrogenase 249 U/L (135-225); Osmolality Calculated 287 mOsm/kg (285-295); Potassium 3.7 mmol/L (3.5-5.1); Sodium 138 mmol/L (136-145); Total Bilirubin 1.3 mg/dL (0.15-1.2); Total Protein 8.5 g/dL (6.6-8.7)
[2024-06-11 11:04] LABS: LAB Peripheral Smear Sent for Review; Vitamin B12 724 pg/mL (232-1245)
[2024-06-11 11:26] LABS: Folate Level 6.2 ng/mL (4.5-32.2)
[2024-06-12 07:15] LABS: PROTEIN, TOTAL 8.2 g/dL (6.1-8.1)
[2024-06-14 15:24] LABS: ALPHA 1 GLOBULIN 0.5 g/dL (0.2-0.3); ALPHA 2 GLOBULIN 0.5 g/dL (0.5-0.9); Anti-Nuclear Antibody Screen NEGATIVE (NEGATIVE); BETA 1 GLOBULIN 0.5 g/dL (0.4-0.6); BETA 2 GLOBULIN 0.7 g/dL (0.2-0.5); GAMMA GLOBULIN 2.2 g/dL (0.8-1.7)
[2024-06-15 12:15] LABS: KAPPA LIGHT CHAIN, FREE, SERUM 622.6 mg/L (3.3-19.4); KAPPA/LAMBDA LIGHT CHAINS FREE 0.66 (0.26-1.65); LAMBDA LIGHT CHAIN, FREE, SERU 942.6 mg/L (5.7-26.3)
[2024-06-15 19:05] LABS: Immunofixation Serum Normal pattern.
== END 2024-06-28 23:59 | disposition home or self-care (01) ==
PROVIDERS: PCP Family Medicine; Visit Provider Internal Medicine Medical Oncology
DX: D69.6 Thrombocytopenia, unspecified (principal); D64.9 Anemia, unspecified; N18.6 End stage renal disease; Z99.2 Dependence on renal dialysis; D63.1 Anemia in chronic kidney disease; Z85.47 Personal history of malignant neoplasm of testis; Z87.891 Personal history of nicotine dependence; I42.8 Other cardiomyopathies; I07.1 Rheumatic tricuspid insufficiency; I50.9 Heart failure, unspecified; R00.0 Tachycardia, unspecified; Z21 Asymptomatic human immunodeficiency virus [HIV] infection status; Z92.21 Personal history of antineoplastic chemotherapy
CPT/HCPCS: 36415; 80053; 82607; 82746; 83010; 83615; 83883; 84155; 84165; 85025; 85045; 85651; 86038; 86140; 86334; 99205

== ENCOUNTER → 2025-02-17 14:17 | Outpatient (BNVA) | payer MEDICARE, SELFPAY | PROVIDERS: PCP Family Medicine; Visit Provider Nurse Practitioner Family | DX: I51.7 Cardiomegaly (principal); Z95.0 Presence of cardiac pacemaker | CPT/HCPCS: 71046 ==

== ENCOUNTER 2025-02-17 15:59 | Emergency (ER) | payer MEDICARE, SELFPAY ==
[2025-02-17 16:03] VITALS: BP 97/59; PULSE 113; RESP 17; TEMP 36.7; O2SAT 93; BMI 19.8
[2025-02-17 20:32] LABS: Basophils % 1.6 %; Eosinophils # 0.1 10^3/uL (0.0-0.8); Eosinophils % 4.8 %; Hematocrit 33.7 % (37-53); Lymphocytes # 0.3 10^3/uL (0.8-4.8); Mean Corpuscular HGB Conc 30.6 g/dL (30-55); Mean Corpuscular Hemoglobin 29.1 pg (27-33); Mean Corpuscular Volume 95.2 fl (82-101); Monocytes # 0.1 10^3/uL (0.2-0.9); Monocytes % 4.8 %; Neutrophils # 1.33 10^3/uL (1.8-7.7); Neutrophils % 70.3 %; Nucleated Red Blood Cells % 0 %; Platelet Count 35 10^3/cmm (157-399); Red Blood Count 3.54 10^6/uL (3.85-5.65); White Blood Count 1.89 10^3/uL (3.29-11.43)
[2025-02-17 20:51] LABS: Alanine Aminotransferase 6 U/L (0-41); Albumin Level 3.2 g/dL (3.5-5.2); Alkaline Phosphatase 132 U/L (40-130); Anion Gap 15.9 (5-19); Aspartate Amino Transferase 30 U/L (0-40); Blood Urea Nitrogen 28 mg/dL (6-20); Calcium 8.8 mg/dL (8.5-10.5); Carbon Dioxide 31 mmol/L (22-29); Chloride 95 mmol/L (98-107); Creatinine Clr Calc Pharmacy 15.2135; Globulin 5.2 g/dL (1.3-4.6); Glomerular Filtration Rate 12.9 mL/min (90-130); Glucose 74 mg/dL (65-115); Osmolality Calculated 290 mOsm/kg (285-295); Potassium 3.9 mmol/L (3.5-5.1); Sodium 138 mmol/L (136-145); Total Bilirubin 1.1 mg/dL (0.15-1.2); Total Protein 8.4 g/dL (6.6-8.7)
--- NOTE | 2025-02-17 21:01 | XRR_ITS ---
PROCEDURE INFORMATION: Exam: XR Chest Exam date and time: 02/17/2025 9:07 PM Age: 39 years old Clinical indication: Shortness of breath TECHNIQUE: Imaging protocol: Radiologic exam of the chest. Views: 1 view. COMPARISON: CR XR chest 2V* [id number] 02/17/2025 2:22 PM FINDINGS: Tubes, catheters and devices: Pacemaker. Lungs: Unremarkable. No consolidation. Pleural spaces: Unremarkable. No pleural effusion. No pneumothorax. Heart/Mediastinum: Cardiomegaly. Bones/joints: Unremarkable. XR/XR chest 1V portable [id number] IMPRESSION: 1. Negative for infiltrate. 2. Cardiomegaly. 3. Pacemaker.
[2025-02-17 21:08] LABS: Slide Review Slide Review Perform
[2025-02-17 21:09] VITALS: BP 108/86; PULSE 84; O2SAT 100
[2025-02-17 21:23] LABS: Partial Thromboplastin Time 34.3 SECONDS (23.9-36.7)
--- NOTE | 2025-02-17 21:54 | W.ED.GENADLT ---
HPI - General Adult General: Chief complaint: General Medical Stated complaint: [facility] Time Seen by Provider: 02/17/25 21:04 History of Present Illness: 39yo male presents for evaluation of a 3-day history of chest congestion with a productive cough, intermittent shortness of breath, and generalized back pain. Patient states that his back hurts when he coughs. States he has been using Mucinex at home with no improvement. States he has had intermittent fevers up to 101, but the temperature does go down on its own. Patient reports he does have dialysis Friday/Friday/Friday. Associated symptoms: Reports dyspnea (intermittent); Deny chest pain, nausea or vomiting Related Data Home Medications ?Medication ?Instructions ?Recorded ?Confirmed lidocaine-prilocaine 2.5 %-2.5 % See Rx Instructions .Route .COMPLEX 10/22/22 02/17/25 topical cream Previous Rx's ?Medication ?Instructions ?Recorded albuterol sulfate 90 mcg/actuation 2 puff inhalation Q4H PRN 11/13/21 aerosol inhaler Shortness Of Breath #6.7 grams valacyclovir 500 mg tablet 500 mg PO DAILY PRN shingles 10 11/13/21 (Valtrex) days #10 tabs bictegravir 50 mg-emtricitabine 1 tab PO DAILY 30 days #30 tabs 04/21/23 200 mg-tenofovir alafenam 25 mg tablet (Biktarvy) apixaban 5 mg tablet (Eliquis) 5 mg PO Q12H 30 days #60 tabs 06/11/23 metoprolol succinate 100 mg 100 mg PO BID #60 tabs 06/11/23 tablet,extended release 24 hr sacubitril 24 mg-valsartan 26 mg 1 tab PO BID #60 tabs 06/11/23 tablet (Entresto) torsemide 100 mg tablet 50 mg (1/2 x 100 mg) PO BID #180 06/11/23 tabs tadalafil 20 mg tablet (Cialis) 20 mg PO DAILY PRN sexual activity 12/02/23 #30 tabs diltiazem HCl 60 mg tablet 60 mg PO BID #90 tabs 02/12/24 tizanidine 4 mg tablet 4 mg PO Q6H PRN muscle spasticity 05/04/24 #20 tabs albuterol sulfate 2.5 mg/3 mL 2.5 mg (3 mL) inhalation QID PRN 02/17/25 (0.083 %) solution for nebulization wheezing #90 mL amoxicillin 875 mg-potassium 1 tab PO BID #7 tabs 02/17/25 clavulanate 125 mg tablet prednisone 20 mg tablet 40 mg (2 x 20 mg) PO DAILY 5 days 02/17/25 #10 tabs Allergies Allergy/AdvReac Type Severity Reaction Status Date / Time acetaminophen Allergy Severe ALGY-Hives Verified 02/17/25 13:44 Iodinated Contrast Media Allergy Unknown Verified 02/17/25 13:44 Review of Systems Const: Reports: fever(s) and chills Card: Denies: chest pain Resp: Reports: dyspnea (intermittent) and productive cough GI: Denies: nausea or vomiting PFSH ED PFSH: Medical History Tricuspid regurgitation Atrial fibrillation Nonischemic cardiomyopathy Deep vein thrombosis of left lower extremity Cardiac arrest Hemoptysis Sleep apnea Hyperkalemia Anemia in chronic kidney disease ESRD (end stage renal disease) on dialysis AV fistula HIV carrier History of testicular cancer Treated with orchiectomy, chemotherapy, and retroperitoneal lymph node dissection Surgical History History of inferior vena caval filter placement History of abdominal surgery (05/2009) Retroperitoneal lymph node dissection History of orchiectomy, unilateral (09/2008) Right unilateral orchiectomy with right inguinal lymph node biopsy S/P hemodialysis catheter insertion (11/30/20) R IJ catheter exchange History of removal of Port-a-Cath Family History Mother Stroke Denies family history of Anesthesia complication Bleeding disorder Social History Smoking and tobacco/nicotine status: former use of tobacco/nicotine Quit status (tobacco/nicotine): has quit using Year quit tobacco: 6 + years Former quit date comment: Smoker for 20+ years Alcohol intake: never Substance/Drug Use: current Adopted: No Caregiver/support person: Yes Lives independently: Yes Housing: House Current occupational status: disabled Pets and animals: No Sexually active: Yes Do you think of yourself as: Straight/Heterosexual Current gender identity: Male Josefa/Hindu: Jehovah'S Witness Physical Exam Const: COMMON NORMALS: no acute distress, patient oriented x3 and alert GENERAL APPEARANCE: ill appearing (chronically ill appearing) ORIENTATION/CONSCIOUSNESS: Yes awake OTHER: Patient is sitting reclined on the stretcher no acute distress. He is able to give history with no difficulty. He is interactive with exam appropriately. No family at bedside HENMT: COMMON NORMALS: normocephalic and atraumatic HEAD & SCALP: normocephalic and atraumatic Chest: CHEST: Yes Symmetrical chest wall rise Resp: COMMON NORMALS: No use of accessory muscles EFFORT & INSPECTION: Yes able to speak in complete sentences, Yes symmetric chest movement and Yes Actively coughing non-productive AUSCULTATION: wheezes throughout Cardio: RHYTHM: abnormal rhythm irregularly irregular GI: INSPECTION: Yes abdominal distension PALPATION: Yes Firmness to palpation present (GI) Neuro: COMMON NORMALS: patient oriented x3 SENSORIUM/ORIENTATION: Yes alert Psych: COMMON NORMALS: cooperative Course Vital Signs: Vital signs: Vital Signs Temperature 98.1 F 02/17/25 16:03 Pulse Rate 93 02/17/25 23:40 Respiratory Rate 18 02/17/25 22:25 Blood Pressure 111/83 02/17/25 23:40 Pulse Oximetry 93 02/17/25 23:40 Oxygen Delivery Me thod Room Air 02/17/25 22:25 MDM - General Adult Medical Decision Making 39yo male with a known history of atrial fibrillation, COPD, ESRD, HIV, congestive heart disease presents for evaluation of a 3-day history of chest congestion with a productive cough, intermittent shortness of breath, and generalized back pain. Patient states that his back hurts when he coughs. States he has been using Mucinex at home with no improvement. States he has had intermittent fevers up to 101, but the temperature does go down on its own. Patient reports he does have dialysis Friday/Friday/Friday. Patient is nontoxic in appearance. Vital signs are stable. Leukopenia noted with white blood cell count of 1.89, chronic for patient. Creatinine is elevated at 5.9, chronic for patient. Chest x-ray with no infiltrates. Cardiomegaly is noted. Pacemaker noted. Patient did receive a DuoNeb as well as Solu-Medrol for the wheezing, suspect COPD exacerbation. Discussed findings and need for antibiotics with nebulizer treatments for the COPD exacerbation. Significant other is at bedside with discussion and voiced frustration as the primary care sent him over and indicated it was emergent that he have a paracentesis. Discussed that they are no pulmonary effusions noted on the chest x-ray and we are not able to complete a paracentesis at this time. Advised a referral can be placed to GI for further evaluation of the fluid-filled abdomen and treatments of the fluid-filled abdomen, they are agreeable with that plan. Patient was discharged with albuterol solution for nebulizer as they do have a nebulizer at home. Prescription for albuterol, prednisone, and Augmentin was sent to patient's pharmacy. First dose of Augmentin was provided in the emergency department. Recommend he take his medications to completion. Advised to follow-up with GI as soon as possible. Also advised to follow-up with primary care, call tomorrow with an update of symptoms and to discuss a recheck. Return precautions provided. Patient and family state understanding and have no further questions or concerns at this time. Medical Records I reviewed the patient's medical records. Lab Data I reviewed the patient's lab results. 02/17/25 20:08 02/17/25 20:08 Radiology Impressions Chest X-Ray 02/17/25 21:01 IMPRESSION: 1. Negative for infiltrate. 2. Cardiomegaly. 3. Pacemaker. Laboratory Results WBC 1.89 10^3/uL (3.29-11.43) L 02/17/25 20:08 RBC 3.54 10^6/uL (3.85-5.65) L 02/17/25 20:08 Hgb 10.30 g/dL (11.27-16.99) L 02/17/25 20:08 Hct 33.7 % (37-53) L 02/17/25 20:08 MCV 95.2 fl (82-101) 02/17/25 20:08 MCH 29.1 pg (27-33) 02/17/25 20:08 MCHC 30.6 g/dL (30-55) 02/17/25 20:08 RDW 17.0 % (12.1-15.1) H 02/17/25 20:08 Plt Count 35 10^3/cmm (157-399) L 02/17/25 20:08 MPV Not Reportable 02/17/25 20:08 Neut % (Auto) 70.3 % 02/17/25 20:08 Lymph % (Auto) 18.0 % 02/17/25 20:08 [place] % (Auto) 4.8 % 02/17/25 20:08 Eos % (Auto) 4.8 % 02/17/25 20:08 Baso % (Auto) 1.6 % 02/17/25 20:08 Neut # (Auto) 1.33 10^3/uL (1.8-7.7) L 02/17/25 20:08 Lymph # (Auto) 0.3 10^3/uL (0.8-4.8) L 02/17/25 20:08 [place] # (Auto) 0.1 10^3/uL (0.2-0.9) L 02/17/25 20:08 Eos # (Auto) 0.1 10^3/uL (0.0-0.8) 02/17/25 20:08 Baso # (Auto) 0.0 10^3/uL (0.0-0.1) 02/17/25 20:08 Nucleated RBC % (auto) 0 % 02/17/25 20:08 Nucleated RBCs # 0.0 /100WBC 02/17/25 20:08 PT 15.00 SECONDS (12.1-14.9) H 02/17/25 20:08 INR 1.10 (0.8-1.2) 02/17/25 20:08 APTT 34.3 SECONDS (23.9-36.7) 02/17/25 20:08 Sodium 138 mmol/L (136-145) 02/17/25 20:08 Potassium 3.9 mmol/L (3.5-5.1) 02/17/25 20:08 Chloride 95 mmol/L (98-107) L 02/17/25 20:08 Carbon Dioxide 31 mmol/L (22-29) H 02/17/25 20:08 Anion Gap 15.9 (5-19) 02/17/25 20:08 BUN 28 mg/dL (6-20) H 02/17/25 20:08 Creatinine 5.9 mg/dL (0.7-1.2) H* 02/17/25 20:08 GFR Calculation 12.9 mL/min (90-130) L 02/17/25 20:08 Glucose 74 mg/dL (65-115) 02/17/25 20:08 Calculated Osmolality 290 mOsm/kg (285-295) 02/17/25 20:08 Calcium 8.8 mg/dL (8.5-10.5) 02/17/25 20:08 Total Bilirubin 1.1 mg/dL (0.15-1.2) 02/17/25 20:08 AST 30 U/L (0-40) 02/17/25 20:08 ALT 6 U/L (0-41) 02/17/25 20:08 Alkaline Phosphatase 132 U/L (40-130) H 02/17/25 20:08 Total Protein 8.4 g/dL (6.6-8.7) 02/17/25 20:08 Albumin 3.2 g/dL (3.5-5.2) L 02/17/25 20:08 Globulin 5.2 g/dL (1.3-4.6) H 02/17/25 20:08 All radiology interpretation(s) finalized by discharge Discharge Plan Discharge Patient Disposition: Home Clinical Impression: Acute exacerbation of chronic obstructive pulmonary disease, Fluid filled abdomen Condition: Stable Prescriptions: New albuterol sulfate 2.5 mg /3 mL (0.083 %) solution for nebulization 2.5 mg inhalation QID PRN (Reason: wheezing) Qty: 90 0RF prednisone 20 mg tablet 40 mg PO DAILY 5 Days Qty: 10 0RF amoxicillin-pot clavulanate 875-125 mg tablet 1 tab PO BID Qty: 7 0RF Discontinued doxycycline hyclate 100 mg capsule 100 mg PO BID 10 Days Qty: 20 0RF prednisone 20 mg tablet 20 mg PO BID Qty: 10 0RF No Action valacyclovir [Valtrex] 500 mg tablet 500 mg PO DAILY PRN (Reason: shingles) 10 Days Qty: 10 3RF Rx Instructions: take for 10 days only if developing a shingles rash albuterol sulfate 90 mcg/actuation HFA aerosol inhaler 2 puff INHALATION Q4H PRN (Reason: Shortness Of Breath) Qty: 6.7 2RF Eliquis 5 mg tablet 5 mg PO Q12H 30 Days Qty: 60 3RF metoprolol succinate 100 mg tablet extended release 24 hr 100 mg PO BID Qty: 60 0RF Rx Instructions: MUST have follow-up for further refills Entresto 24-26 mg tablet 1 tab PO BID Qty: 60 5RF torsemide 100 mg tablet 50 mg PO BID Qty: 180 0RF tadalafil [Cialis] 20 mg tablet 20 mg PO DAILY PRN (Reason: sexual activity) Qty: 30 2RF Rx Instructions: adminis 30min before sexual activity; do not use more than 1 dose per 24hrs diltiazem HCl 60 mg tablet 60 mg PO BID Qty: 90 3RF Biktarvy 50-200-25 mg tablet 1 tab PO DAILY 30 Days Qty: 30 6RF lidocaine-prilocaine 2.5-2.5 % cream See Rx Instructions .ROUTE .COMPLEX Rx Instructions: as directed as needed tizanidine 4 mg tablet 4 mg PO Q6H PRN (Reason: muscle spasticity) Qty: 20 0RF Rx Instructions: do not exceed 3 doses per 24 hrs Discharge Orders: Discharge ED (Routine); Ordered 02/17/25 Ordered By: Mukesh Currie Referrals: Rebecca Montiel MD [Primary Care Provider, Family Practice] Discharge Diet: Usual diet Discharge Activity: Resume usual activity Patient Instructions: COPD (Chronic Obstructive Pulmonary Disease) (ED) Activity Restrictions/Additional Instructions: Augmentin has been sent to the pharmacy today to begin treatment of the COPD exacerbation A prescription of prednisone has been sent for you to use for the next 5 days You were sent home with albuterol to use tonight and a prescription of albuterol nebulizer solution has been sent to your pharmacy. Please use this medication to help with wheezing A referral has been placed to GI for evaluation of the fluid-filled abdomen. They should be calling you to schedule an appointment. Follow-up with your doctor, call tomorrow with an update of symptoms and to discuss a recheck Return to the emergency department if any rapid worsening symptoms, onset of fever associated with worsening, and as needed Print Language: Welsh Coding Level of Care Code ED Towel Distributor for Jignesh Emerson
[2025-02-17] MEDS: methylPREDNISolone sod succ 125 mg/2 mL INJ 60 MG IVP (22:15)
[2025-02-17 22:25] VITALS: PULSE 89; RESP 18; O2SAT 97
[2025-02-17] MEDS: ipratropium-albuterol 3 mL Neb INHALATION (22:25)
[2025-02-17 22:32] VITALS: PULSE 91
[2025-02-17 23:13] VITALS: BP 115/84; PULSE 97; O2SAT 93
[2025-02-17] MEDS: amoxicillin-clav 875-125 mg Tablet 1 TAB PO (23:31)
[2025-02-17 23:40] VITALS: BP 111/83; PULSE 93; O2SAT 93
== END 2025-02-17 23:58 | disposition home or self-care (01) ==
PROVIDERS: Emergency Medicine; Emergency Provider Nurse Practitioner; PCP Family Medicine
DX: J44.9 Chronic obstructive pulmonary disease, unspecified (principal); N18.6 End stage renal disease; R18.8 Other ascites; I48.91 Unspecified atrial fibrillation; Z87.891 Personal history of nicotine dependence; I50.9 Heart failure, unspecified
CPT/HCPCS: 36415; 71045; 80053; 85025; 85610; 85730; 94640; 96374; 99284; J2919; J9999

== ENCOUNTER 2025-02-26 15:24 | Inpatient (IN) | payer MEDICARE, SELFPAY ==
[2025-02-26] VITALS (28 sets, daily range): BP systolic 72–137; BP diastolic 46–88; PULSE 11–135; RESP 13–35; TEMP 35.8–36.4; O2SAT 80–97; BMI 20.5; BMI 21.4
--- NOTE | 2025-02-26 15:34 | ECG_ITS ---
[facility] Test Date: 2025-02-26 Pat Name: Vivek Harden Department: Room: Gender: Male Director Health: : 1985 Requested By: Humebrto Segal Order Number: [id number] Hooks MD: Elgin Lewis M.D. Measurements Intervals [place] Rate: 110 P: 0 VT: 0 QRS: 16 QRSD: 81 T: 90 QT: 341 QTc: 461 Interpretive Statements ATRIAL FIBRILLATION WITH RAPID VENTRICULAR RESPONSE NONSPECIFIC T-WAVE ABNORMALITY Compared to ECG 04/20/2023 22:59:34 Sinus tachycardia no longer present Left ventricular hypertrophy no longer present T-wave abnormality still present Electronically Signed On 03-01-2025 11:42:15 CDT by Elgin Lewis M.D. [id number]
--- NOTE | 2025-02-26 15:36 | XRR_ITS ---
PROCEDURE INFORMATION: Exam: XR Chest Exam date and time: 02/26/2025 4:21 PM Age: 39 years old Clinical indication: Pain; Chest pressure; Prior surgery; Surgery date: 6+ months; Surgery type: Ivc filter, pacemaker, defib; SOB; Chest tightness; Afib w/ rvr TECHNIQUE: Imaging protocol: Radiologic exam of the chest. Views: 1 view. COMPARISON: CR (CHEST, ) 02/17/2025 9:07 PM FINDINGS: Lungs: Unremarkable. No consolidation. Pleural spaces: Unremarkable. No pleural effusion. No pneumothorax. Heart/Mediastinum: Moderate cardiomegaly. Pacemaker. Bones/joints: Unremarkable. XR/XR chest 1V [id number] IMPRESSION: As above.
--- NOTE | 2025-02-26 15:50 | ED_ITS ---
HPI - Chest Pain 2 General: Chief Complaint: Chest Pain Stated Complaint: CP Time Seen by Provider: 02/26/25 15:29 History of Present Illness: Chief complaint chest pain shortness of breath. History from patient and EMS. Patient was found to be in A-fib with RVR and given 250 cc IV fluid bolus and 20 mg Cardizem bolus and 324 of aspirin prehospital with significant improvement. Related Data Home Medications ?Medication ?Instructions ?Recorded ?Confirmed lidocaine-prilocaine 2.5 %-2.5 % See Rx Instructions . Route .COMPLEX 10/22/22 02/17/25 topical cream Previous Rx's ?Medication ?Instructions ?Recorded albuterol sulfate 90 mcg/actuation 2 puff inhalation Q 4H PRN 11/13/21 aerosol inhaler Shortness Of Breath #6.7 gra ms valacyclovir 500 mg tablet 500 mg PO DAILY PRN shingle s 10 11/13/21 (Valtrex) days #10 tabs bictegravir 50 mg-emtricitabine 1 tab PO DAILY 30 days #30 tabs 04/21/23 200 mg-tenofovir alafenam 25 mg tablet (Biktarvy) apixaban 5 mg tablet (Eliquis) 5 mg PO Q12H 30 days #6 0 tabs 06/11/23 metoprolol succinate 100 mg 100 mg PO BID #60 tabs tablet,extended release 24 hr sacubitril 24 mg-valsartan 26 mg 1 tab PO BID #60 tabs 06/11/23 tablet (Entresto) torsemide 100 mg tablet 50 mg (1/2 x 100 mg) PO BID #180 06/11/23 tabs tadalafil 20 mg tablet (Cialis) 20 mg PO DAILY PRN sex ual activity 12/02/23 #30 tabs diltiazem HCl 60 mg tablet 60 mg PO BID #90 tabs 02/11 tizanidine 4 mg tablet 4 mg PO Q6H PRN muscle spast icity 05/04/24 #20 tabs albuterol sulfate 2.5 mg/3 mL 2.5 mg (3 mL) inhalation QID PRN 02/17/25 (0.083 %) solution for nebulization wheezing #90 mL amoxicillin 875 mg-potassium 1 tab PO BID #7 tabs 01/28 11/23 clavulanate 125 mg tablet Allergies Allergy/AdvReac Type Severity Reaction Status Date / Time acetaminophen Allergy Severe ALGY-Hives Verified 02/17/25 13:44 Iodinated Contrast Media Allergy Unknown Verified 02/17/25 13:44 [facility] ED 2 PFSH: Medical History Tricuspid regurgitation Atrial fibrillation Nonischemic cardiomyopathy Deep vein thrombosis of left lower extremity Cardiac arrest Hemoptysis Sleep apnea Hyperkalemia Anemia in chronic kidney disease ESRD (end stage renal disease) on dialysis AV fistula HIV carrier History of testicular cancer Treated with orchiectomy, chemotherapy, and retroperitoneal lymph node dissection Surgical History History of inferior vena caval filter placement History of abdominal surgery (05/2009) Retroperitoneal lymph node dissection History of orchiectomy, unilateral (09/2008) Right unilateral orchiectomy with right inguinal lymph node biopsy S/P hemodialysis catheter insertion (11/30/20) R IJ catheter exchange History of removal of Port-a-Cath Family History Mother Stroke Denies family history of Anesthesia complication Bleeding disorder Social History Smoking and tobacco/nicotine status: former use of tobacco/nicotine Quit status (tobacco/nicotine): has quit using Year quit tobacco: 6 + years Former quit date comment: Smoker for 20+ years Alcohol intake: never Substance/Drug Use: current Adopted: No Caregiver/support person: Yes Lives independently: Yes Housing: House Current occupational status: disabled Pets and animals: No Sexually active: Yes Do you think of yourself as: Straight/Heterosexual Current gender identity: Male Josefa/Restorationism: Restoration Physical Exam 2 Narrative: EXAM NARRATIVE: Patient sitting up mildly tachypneic mildly anxious. Heart irregularly irregular and tachycardic. Lung sounds are clear but mildly diminished. No retractions. No accessory muscle use. No crackles. Extremities warm well- perfused. No calf tenderness. His abdomen is distended and full but nontender. Skin is warm and dry without rash in exposed areas. Neck supple. Speech is clear. Grossly intact motor. He moves his neck and back freely. Neck is supple. No icterus. Moist mucous membranes. Course 2 Vital Signs: Vital signs: Vital Signs Temperature 97.6 F 02/26/25 15:25 Pulse Rate 106 H 02/26/25 17:30 Respiratory Rate 17 02/26/25 17:07 Blood Pressure 96/68 02/26/25 17:30 MDM - Chest Pain Medical Decision Making Patient presents stating that he started feeling fatigued and short of breath gradual onset over the last 4 to 5 days. He states yesterday around noon he started getting some chest discomfort and feeling like his heart was beating faster and harder than normal. No fever. He states his abdomen has been distended for some time and he gets fluid drained off and he was wondering if that could be causing some of his symptoms. He denies any alcohol use or liver problems. He states he went to his normal dialysis yesterday and has normal amount of fluid taken off. He states he has a history of A-fib. He cannot tell me what medications he is on. Patient is a very limited historian. His medication list indicates he is on apixaban and diltiazem although the patient cannot confirm any of his medications. He states he is taking his normal medications. He denies having fever. He has a chronic cough which is unchanged. No hemoptysis. No history of PE but states he has a history of DVTs. No new leg pain or swelling. He denies any black or bloody stools. No fever that he is aware of. Based on patient exam and history A-fib with RVR leading to CHF and chest pain is most likely cause as patient was in A-fib with RVR with a heart rate of greater than 180 according to EMS. They gave him Cardizem and patient heart rate improved and the patient states he is feeling much better. He states the shortness of breath and chest tightness have resolved. I ordered EKG, CBC CMP troponin and chest x-ray. Patient started on Cardizem drip. Patient EKG to my interpretation shows A-fib with RVR with a rate [address] segment changes. Patient's chest pain has resolved. Differentials very broad including pericardial effusion, pleural effusion, pulmonary edema, anemia, CHF, pneumonia, among many others. PE less likely if he is anticoagulated. Patient has pancytopenia. This is not significant change. On review of record patient has poor EF and will switch to amiodarone with poor tolerance of Cardizem. Patient chest x-ray to my independent interpretation shows marked cardiomegaly however this appears similar to prior and chest x-ray appears improved compared to prior. On review of record patient has history of HIV. Consideration for infectious process also must be considered but I do not see evident findings on chest x-ray and this is more likely A-fib with RVR contributing to his symptoms. Patient given 4 mg morphine IV for pain as he did have some return of chest pain. Plan to admit patient for further evaluation of his chest pain and he has elevated troponin although of uncertain significance was with his A-fib with RVR and his end-stage renal disease. Potassium is not significant elevated. I consulted with Dr. Child who accepts the patient in admission we will continue patient care. Lab Data 02/26/25 16:03 02/26/25 16:03 Radiology Impressions Chest X-Ray 02/26/25 15:36 IMPRESSION: As above. Laboratory Results WBC 2.08 10^3/uL (3.29-11.43) L 02/26/25 16:03 RBC 3.29 10^6/uL (3.85-5.65) L 02/26/25 16:03 Hgb 9.70 g/dL (11.27-16.99) L 02/26/25 16:03 Hct 31.7 % (37-53) L 02/26/25 16:03 MCV 96.4 fl (82-101) 02/26/25 16:03 MCH 29.5 pg (27-33) 02/26/25 16:03 MCHC 30.6 g/dL (30-55) 02/26/25 16:03 RDW 18.3 % (12.1-15.1) H 02/26/25 16:03 Plt Count 33 10^3/cmm (157-399) L 02/26/25 16:03 MPV Not Reportable 02/26/25 16:03 Neut % (Auto) 75.4 % 02/26/25 16:03 Lymph % (Auto) 13.0 % 02/26/25 16:03 Frederick % (Auto) 9.6 % 02/26/25 16:03 Eos % (Auto) 0.0 % 02/26/25 16:03 Baso % (Auto) 1.0 % 02/26/25 16:03 Neut # (Auto) 1.57 10^3/uL (1.8-7.7) L 02/26/25 16:03 Lymph # (Auto) 0.3 10^3/uL (0.8-4.8) L 02/26/25 16:03 Frederick # (Auto) 0.2 10^3/uL (0.2-0.9) 02/26/25 16:03 Eos # (Auto) 0.0 10^3/uL (0.0-0.8) 02/26/25 16:03 Baso # (Auto) 0.0 10^3/uL (0.0-0.1) 02/26/25 16:03 Nucleated RBC % (auto) 3.4 % 02/26/25 16:03 Nucleated RBCs # 0.1 /100WBC 02/26/25 16:03 PT 18.90 SECONDS (12.1-14.9) H 02/26/25 16:03 INR 1.48 (0.8-1.2) H 02/26/25 16:03 APTT 33.9 SECONDS (23.9-36.7) 02/26/25 16:03 Sodium 135 mmol/L (136-145) L 02/26/25 16:03 Potassium 4.3 mmol/L (3.5-5.1) 02/26/25 16:03 Chloride 89 mmol/L (98-107) L 02/26/25 16:03 Carbon Dioxide 23 mmol/L (22-29) 02/26/25 16:03 Anion Gap 27.3 (5-19) H 02/26/25 16:03 BUN 36 mg/dL (6-20) H 02/26/25 16:03 Creatinine 5.2 mg/dL (0.7-1.2) H 02/26/25 16:03 GFR Calculation 14.9 mL/min (90-130) L 02/26/25 16:03 Glucose 73 mg/dL (65-115) 02/26/25 16:03 Calculated Osmolality 287 mOsm/kg (285-295) 02/26/25 16:03 Calcium 8.6 mg/dL (8.5-10.5) 02/26/25 16:03 Total Bilirubin 1.7 mg/dL (0.15-1.2) H 02/26/25 16:03 AST 37 U/L (0-40) 02/26/25 16:03 ALT 11 U/L (0-41) 02/26/25 16:03 Alkaline Phosphatase 133 U/L (40-130) H 02/26/25 16:03 Troponin T Baseline 227 ng/L (0-15) H* 02/26/25 16:03 Total Protein 8.6 g/dL (6.6-8.7) 02/26/25 16:03 Albumin 3.5 g/dL (3.5-5.2) 02/26/25 16:03 Globulin 5.1 g/dL (1.3-4.6) H 02/26/25 16:03 XR interpretation done by ED provider, pending radiology final review Discharge Plan Discharge Patient Disposition: Placed in Observation Clinical Impression: Acute chest pain, Atrial fibrillation with rapid ventricular response, Pancytopenia Coding Level of Care Code ED Transplant Coordinator for Jignesh Emerson
[2025-02-26] MEDS: dilTIAZem 100 MG in sodium chloride 0.9% (add-van) 100 ML IV (15:55)
[2025-02-26 16:24] LABS: Hematocrit 31.7 % (37-53); Lymphocytes # 0.3 10^3/uL (0.8-4.8); Mean Corpuscular HGB Conc 30.6 g/dL (30-55); Mean Corpuscular Hemoglobin 29.5 pg (27-33); Mean Corpuscular Volume 96.4 fl (82-101); Monocytes # 0.2 10^3/uL (0.2-0.9); Monocytes % 9.6 %; Neutrophils # 1.57 10^3/uL (1.8-7.7); Neutrophils % 75.4 %; Nucleated Red Blood Cells # 0.1 /100WBC; Nucleated Red Blood Cells % 3.4 %; Platelet Count 33 10^3/cmm (157-399); Red Blood Count 3.29 10^6/uL (3.85-5.65); Red Cell Distribution Width 18.3 % (12.1-15.1); White Blood Count 2.08 10^3/uL (3.29-11.43)
[2025-02-26 16:34] LABS: INR 1.48 (0.8-1.2)
[2025-02-26 16:35] LABS: Partial Thromboplastin Time 33.9 SECONDS (23.9-36.7)
[2025-02-26 16:46] LABS: Alanine Aminotransferase 11 U/L (0-41); Albumin Level 3.5 g/dL (3.5-5.2); Alkaline Phosphatase 133 U/L (40-130); Anion Gap 27.3 (5-19); Aspartate Amino Transferase 37 U/L (0-40); Blood Urea Nitrogen 36 mg/dL (6-20); Calcium 8.6 mg/dL (8.5-10.5); Carbon Dioxide 23 mmol/L (22-29); Chloride 89 mmol/L (98-107); Creatinine Clr Calc Pharmacy 17.5037; Globulin 5.1 g/dL (1.3-4.6); Glomerular Filtration Rate 14.9 mL/min (90-130); Glucose 73 mg/dL (65-115); Osmolality Calculated 287 mOsm/kg (285-295); Potassium 4.3 mmol/L (3.5-5.1); Sodium 135 mmol/L (136-145); Total Bilirubin 1.7 mg/dL (0.15-1.2); Total Protein 8.6 g/dL (6.6-8.7)
[2025-02-26 16:50] LABS: Troponin(5th) Baseline 227 ng/L (0-15)
[2025-02-26] MEDS: ondansetron 2 mg/ML SDV 2 mL 4 MG IVP (17:07)
[2025-02-26] MEDS: morphine 4 mg/mL SDV 1 mL IVP (17:07)
[2025-02-26] MEDS: amiodarone 150 MG/100 ML PREMIX 400 MG IV (17:55)
[2025-02-26 18:04] LABS: ABG PCO2 38.5 mmHg (35-45); ABG PH Result 7.41 (7.35-7.45); Arterial Blood Gas Hematocrit 30.3 % (42-52); Base Excess ABG -0.3 mmol/L (-2.0-2.0); Blood Gas Allen Test Pos; Blood Gas Operator Identificat WALCI; Blood Gas Sample Site Radial, right; Blood Gas Sample Type Arterial; Carboxyhemoglobin 1.6 %THgb (0.4-20.1); HCO3 ABG 24.3 mmol/L (22-26); HGB O2 Sat 94.3 % (95-100); Ionized Calcium Level - ABG 1.1 mmol/L (1.1-1.4); Oxygen Device NC; Oxygen Saturation ABG 96.8; PO2 ABG 92.4 mmHg (80.0-100.0); Potassium Level - ABG 4.5 mmol/L (3.5-5.0); Total Hemoglobin 9.9 g/dL (14-18)
[2025-02-26 18:11] LABS: Lactic Sepsis W/Reflex 6.9 mmol/L (0.5-2.2); Reflex Lactate Order REFLEX LACTIC ORDERD
[2025-02-26 18:25] LABS: Procalcitonin 8.37 ng/mL (0-0.5)
[2025-02-26] MEDS: heparin drip 25,000 UNIT/500 ML PREMIX 17 UNIT IV (18:29)
[2025-02-26] MEDS: heparin 5,000 unit/mL INJ 1 mL IVP (18:30)
[2025-02-26 18:55] LABS: Troponin 5 2HR Delta 5.8 ABS# (0-10)
[2025-02-26 18:59] LABS: Lactic Acid level (Lactate) 5.6 mmol/L (0.5-2.2); Troponin 5 2HR 232.8 ng/L (0-15)
--- NOTE | 2025-02-26 19:23 | P.HP_ITS ---
Providers/Chief Complaint 2 Admitting Physician: Luis Beatty MD Primary Care Provider: Rebecca Montiel MD Chief Complaint: CP History of Present Illness Vivek Harden is a 39 year old male with past medical history of end-stage renal disease on hemodialysis Friday, Friday, Friday, congestive heart failure with last known EF of 35% back from 2022, A-fib with RVR, HIV not currently on treatment at least for last 6 months as per the patient, with last dialysis on Friday. He states since Friday after dialysis he continued to have difficulty in breathing. He usually his breathing would improve after dialysis but this time he continued to have difficulty in breathing. Today he started having difficulty with chest pain and palpitations which continued to get worse hence he called the EMS. EMS found him to be in A-fib with RVR gave him a push of Cardizem and brought him to the ER. In the ER when seen he was on Cardizem drip. Blood pressures were only recordable manually to 90 systolic, peripheries were cold, saturation not picked up on the monitor. Patient was awake, alert but drowsy. Patient states he has been having difficulty in breathing, palpitations and chest pain since today morning. Difficulty in breathing has been getting worse since Friday. States he has not taken his HIV medications at least for the last 6 months. Has not followed up with his providers for over a year. Review of Systems 2 General: Reports: 10 or more systems reviewed and unremarkable except in HPI and below Const: Denies: fever(s), chills, body aches, change in appetite, change in weight, malaise, night sweats, diaphoresis, change in sleep pattern, daytime sleepiness or snoring Eyes: Denies: change in vision, blurry vision, photophobia, eye discomfort or eye discharge ENMT: Denies: throat pain, enlarged tonsils, hoarseness, mouth pain, oral sores, dry mouth, tinnitus, nasal congestion or post nasal drip Card: Denies: chest pain, palpitations, irregular heart rhythm, edema, swelling of feet/ankles, lightheadedness, syncope, pre-syncope, dyspnea on exertion, orthopnea, leg pain with exertion or acrocyanosis Resp: Denies: dyspnea, productive cough, non-productive cough, wheezing, stridor, pain on inspiration, change in phlegm color, hemoptysis or chest congestion GI: Denies: abdominal pain, nausea, vomiting, hematemesis, coffee ground emesis, dysphagia, heartburn, diarrhea, constipation, bloating, GI cramping, change in bowel habits, pain on defecation, hematochezia or melena : Denies: flank pain, difficulty urinating, dysuria, urinary frequency, urinary urgency, urinary hesitancy, urinary dribbling, difficulty starting urination, change in urine stream, nocturia or hematuria Musc: Denies: neck pain, back pain, extremity pain, joint pain, joint swelling, joint redness, joint stiffness or limited range of motion Neuro: Denies: headache(s), numbness in extremities, weakness in extremities, sensory changes, lack of coordination, difficulty walking, frequent falls, dizziness, vertigo, confusion, Slurred speech present, difficulty communicating thoughts or seizure-like activity Psych: Denies: anxiety, depression, mood swings, panic attacks, hopelessness or irritability Endo: Denies: polyuria, polydipsia, tired all the time, cold intolerance, excessive sweating, flushing or heat intolerance Wilver/Lymph: Denies: easy bruising or easy bleeding All/Imm: Denies: tongue swelling, facial swelling or acute wheezing Medications/Allergies Home Medications ?Medication ?Instructions ?Recorded ?Confirmed ?Last Taken ?Type albuterol sulfate 90 mcg/actuation 2 puff inhalation Q 4H PRN 11/13/21 02/17/25 Unknown Rx aerosol inhaler Shortness Of Breath #6.7 gra ms valacyclovir 500 mg tablet 500 mg PO DAILY PRN shingle s 10 11/13/21 02/17/25 Unknown Rx (Valtrex) days #10 tabs lidocaine-prilocaine 2.5 %-2.5 % See Rx Instructions . Route .COMPLEX 10/22/22 02/17/25 Unknown History topical cream bictegravir 50 mg-emtricitabine 1 tab PO DAILY 30 days #30 tabs 04/21/23 02/17/25 Unknown Rx 200 mg-tenofovir alafenam 25 mg tablet (Biktarvy) apixaban 5 mg tablet (Eliquis) 5 mg PO Q12H 30 days #6 0 tabs 06/11/23 02/17/25 Unknown Rx metoprolol succinate 100 mg 100 mg PO BID #60 tabs 02/17/25 Unknown Rx tablet,extended release 24 hr sacubitril 24 mg-valsartan 26 mg 1 tab PO BID #60 tabs 06/11/23 02/17/25 Unknown Rx tablet (Entresto) torsemide 100 mg tablet 50 mg (1/2 x 100 mg) PO BID #180 06/11/23 02/17/25 Unknown Rx tabs tadalafil 20 mg tablet (Cialis) 20 mg PO DAILY PRN sex ual activity 12/02/23 02/17/25 Unknown Rx #30 tabs diltiazem HCl 60 mg tablet 60 mg PO BID #90 tabs 02/1102/17/25 Unknown Rx tizanidine 4 mg tablet 4 mg PO Q6H PRN muscle spast icity 05/04/24 02/17/25 Unknown Rx #20 tabs albuterol sulfate 2.5 mg/3 mL 2.5 mg (3 mL) inhalation QID PRN 02/17/25 Unknown Rx (0.083 %) solution for nebulization wheezing #90 mL amoxicillin 875 mg-potassium 1 tab PO BID #7 tabs 01/28 11/23 Unknown Rx clavulanate 125 mg tablet Allergies Allergy/AdvReac Type Severity Reaction Status Date / Time acetaminophen Allergy Severe ALGY-Hives Verified 02/17/25 13:44 Iodinated Contrast Media Allergy Unknown Verified 02/17/25 13:44 PFSH Acute 2 PFSH: Medical History Tricuspid regurgitation Atrial fibrillation Nonischemic cardiomyopathy Deep vein thrombosis of left lower extremity Cardiac arrest Hemoptysis Sleep apnea Hyperkalemia Anemia in chronic kidney disease ESRD (end stage renal disease) on dialysis AV fistula HIV carrier History of testicular cancer Treated with orchiectomy, chemotherapy, and retroperitoneal lymph node dissection Surgical History History of inferior vena caval filter placement History of abdominal surgery (05/2009) Retroperitoneal lymph node dissection History of orchiectomy, unilateral (09/2008) Right unilateral orchiectomy with right inguinal lymph node biopsy S/P hemodialysis catheter insertion (11/30/20) R IJ catheter exchange History of removal of Port-a-Cath Family History Mother Stroke Denies family history of Anesthesia complication Bleeding disorder Social History Smoking and tobacco/nicotine status: former use of tobacco/nicotine Quit status (tobacco/nicotine): has quit using Year quit tobacco: 6 + years Former quit date comment: Smoker for 20+ years Alcohol intake: never Substance/Drug Use: current Adopted: No Caregiver/support person: Yes Lives independently: Yes Housing: House Current occupational status: disabled Pets and animals: No Sexually active: Yes Do you think of yourself as: Straight/Heterosexual Current gender identity: Male Josefa/Oriental Orthodox: Muslim Vitals/I&O/Wt Last Vital Signs Temp 97.6 F 02/26/25 15:25 Pulse 11 L 02/26/25 19:10 Resp 17 02/26/25 17:07 BP 101/70 02/26/25 19:10 Pulse Ox 93 02/26/25 19:10 O2 Del Method Nasal Cannula 02/26/25 19:10 O2 Flow Rate 4 02/26/25 19:10 02/26/25 02/26/25 02/26/25 06:59 14:59 22:59 Intake Total 20.917 / 20.917 Balance 20.917 / 20.917 Weight last 48 hrs Weight 61.235 kg Physical Exam 2 Narrative: General: No acute distress, AO x3, sick appearing, tired appearing, fistula present in the left arm HEENT: PERRLA, pupils bilaterally equal and reactive Chest: Normal vesicular breath sounds, no added sounds, equal good air entry bilaterally CVS: S1-S2 irregularly irregular, pansystolic murmur at apex tachycardia, no gallops, no rubs Abdomen: Soft, nontender, no organomegaly, bowel sounds present Neuro: No focal deficits, no facial deformity, AO x3, power 5/5 in all limbs Data 02/26/25 16:03 02/26/25 16:03 A&P Assessment and plan (1) Cardiogenic shock: (2) Nonischemic cardiomyopathy: (3) Atrial fibrillation with rapid ventricular response: (4) Congestive heart failure due to cardiomyopathy: (5) Elevated troponin: (6) Pancytopenia: (7) Thrombocytopenia: (8) ESRD (end stage renal disease) on dialysis: (9) HIV (human immunodeficiency virus infection): (10) Positive RPR test: (11) COPD (chronic obstructive pulmonary disease): (12) Sleep apnea: Plan 39-year-old gentleman past medical history of end-stage renal disease on hemodialysis Friday, Friday, Friday, congestive systolic heart failure, HIV not currently on treatment presents to the ER with difficulty in breathing and palpitations along with some chest pain. Cardiogenic shock: Peripheries cold. Manual blood pressure of high 80s to low 90s. Check lactate. Maintain mean artery pressure over 65. Shock most likely cardiogenic less likely septic. Check blood culture, urinalysis with possible, CT chest abdomen pelvis with contrast, trend procalcitonin, MRSA swab. Given patient being immunocompromised for nontreated HIV for now empirically start on IV vancomycin and Zosyn. IV Levophed keeping mean artery pressure 65. Maintain dobutamine at 2. Repeat lactate in AM. Acute decompensated chronic systolic heart failure: Last known EF from 23 of 30% with grade 2 diastolic dysfunction, moderately dilated RV. Strict and proper charting, daily weights. Patient on hemodialysis for end-stage renal disease. Patient also seems to be on torsemide. Mckeon catheter. IV Lasix 100 mg one-time. A-fib with RVR: Seems patient takes Cardizem and metoprolol at home. Continue with amiodarone drip. Hold off on Cardizem and metoprolol given soft blood pressures. Takes Eliquis at home. For now switch on heparin drip. Shortness of breath: Most likely in setting of congestive heart failure. Given pancytopenia with not being on treatment for HIV cannot rule out infectious source. Antibiotic as above. CT chest abdomen pelvis. Check LDH. Elevated troponin: Non-ST elevation IA versus demand ischemia. Check echocardiogram. Heparin drip as above. Check A1c, lipid panel Aspirin 81 mg daily, statin. HIV: As per patient not on treatment for more than 6 months. Check HIV RNA. CD4 count. Suppose to be on Biktarvy. Will restart once available pharmacy History of RPR positive. Check hepatitis panel and RPR/FTA-ABS. Pancytopenia/thrombocytopenia: Monitor for neutropenia. Could be in setting of active HIV. Patient does have chronic thrombocytopenia but worsening currently. Leukopenia is new. Full code Renal dialysis diet Protonix for PUD prophylaxis Heparin be sufficient for DVT prophylaxis PDMP PDMP Reviewed: Not Reviewed Attestations 2 Medical Necessity Statement*: Admission for more than 2 midnights for management of cardiogenic shock, congestive heart failure, atrial fibrillation with RVR, acute decompensated systolic heart failure in a patient with end-stage renal disease on hemodialysis, HIV Critical Care Time: The high probability of a clinically significant, sudden or life threatening deterioration of the patient's [cardiac, renal, pulmonary] system(s) required my full and direct attention, intervention and personal management. The critical care time is as shown. This time is in addition to time spent performing any reported procedures but includes the following: [x] Data and vital sign review and interpretation [x] Patient assessment, examination and intervention [x] Documentation [x] Medication orders and management Critical Care Time (min): 90 Coding Level of Care Code Critical Care >/= 30 minutes Critical care time (in minutes): 90 The high probability of a clinically significant, sudden or life threatening deterioration, as referenced in this documentation, required my full and direct attention, intervention and personal management. The critical care time shown is in addition to time spent performing any reported separately billable procedures and includes the following: [x] Data and vital sign review and interpretation [x ] Patient assessment, examination and intervention [x] Medication orders and management [x] Patient/Family updates as able [x] Care Coordination and Documentation. Other Coding Information This patient has a high probability of clinically significant, sudden or life threatening deterioration of the patient's (neurological/pulmonary/cardiac/renal/ID/endocrine) systems required my full, direct attention, the highest level of physician preparedness for urgent intervention and personal management. I managed/supervised life or organ supporting interventions that required frequent physician assessment. I devoted my full attention in the ICU to the direct care of this patient for the period of time indicated above. Time I spent with family or surrogate(s) is included only if the patient was incapable of providing necessary information or participating in decision making. This time includes the following services provided: Telemetry review Hemodynamic interpretation, assessment and management Review and interpretation of CXR Review and interpretation of lab values Review and interpretation of microbiologic data and culture results Review of medications and administration Review and interpretation of Nutrition requirements and management Discussion of management with other consultants and services Clinical update to family members Diagnoses Cardiogenic shock R57.0 Nonischemic cardiomyopathy I42.8 Atrial fibrillation with rapid ventricular response I48.91 Congestive heart failure due to cardiomyopathy I50.9; I42.9 Elevated troponin R79.89 Pancytopenia D61.818 Thrombocytopenia D69.6 ESRD (end stage renal disease) on dialysis N18.6; Z99.2 HIV infection, unspecified symptom status B20 Positive RPR test A53.0 COPD (chronic obstructive pulmonary disease) J44.9 Sleep apnea, unspecified type G47.30 Sleep apnea type: unspecified type
--- NOTE | 2025-02-26 19:47 | CTR_ITS ---
PROCEDURE INFORMATION: Exam: CT Chest With Contrast; Diagnostic Exam date and time: 02/26/2025 9:54 PM Age: 39 years old Clinical indication: Bloating; Shortness of breath; Prior surgery; Surgery date: 6+ months; Surgery type: Pacer. Dialysis cath. Ivc filter; Chest pain with SOB and abd distention. Sepsis. History of chf and esrd. ; Additional info: Resp failure, shock TECHNIQUE: Imaging protocol: Diagnostic computed tomography of the chest with contrast. Radiation optimization: All CT scans at this facility use at least one of these dose optimization techniques: automated exposure control; mA and/or kV adjustment per patient size (includes targeted exams where dose is matched to clinical indication); or iterative reconstruction. Contrast material: OMNI 350; Contrast volume: 75 ml; Contrast route: INTRAVENOUS (IV); COMPARISON: CT chest abdpel w/*[id number] 05/04/2024 7:50 AM RADIATION DOSE METRICS: Total DLP (mGy-cm): 659.41 FINDINGS: Lungs: Patchy bilateral ground-glass airspace opacities suggestive of alveolar edema. Pleural spaces: Unremarkable. No pneumothorax. No pleural effusion. Heart: Cardiomegaly. Lymph nodes: Unremarkable. No enlarged lymph nodes. Vasculature: Azygos vein is somewhat dilated, findings discontinuation of the inferior vena cava distal to the inferior vena cava filter. Bones/joints: Unremarkable. No acute fracture. Soft tissues: Anasarca. PROCEDURE INFORMATION: Exam: CT Abdomen And Pelvis With Contrast Exam date and time: 02/26/2025 9:54 PM Age: 39 years old Clinical indication: Bloating; Shortness of breath; Prior surgery; Surgery date: 6+ months; Surgery type: Pacer. Dialysis cath. Ivc filter; Chest pain with SOB and abd distention. Sepsis. History of chf and esrd. ; Additional info: Resp failure, shock TECHNIQUE: Imaging protocol: Computed tomography of the abdomen and pelvis with contrast. Radiation optimization: All CT scans at this facility use at least one of these dose optimization techniques: automated exposure control; mA and/or kV adjustment per patient size (includes targeted exams where dose is matched to clinical indication); or iterative reconstruction. Contrast material: OMNI 350; Contrast volume: 75 ml; Contrast route: INTRAVENOUS (IV); COMPARISON: CT chest abdpel w/*[id number] 05/04/2024 7:50 AM RADIATION DOSE METRICS: Total DLP (mGy-cm): 659.41 FINDINGS: Liver: Normal. No mass. Gallbladder and biliary ducts: Normal. No calcified stones. No ductal dilation. Pancreas: Normal. No ductal dilation. Spleen: Normal. No splenomegaly. Adrenal glands: Normal. No mass. Kidneys and ureters: Bilateral renal cysts, negative for follow-up advised. Chronic atrophy of the kidneys bilaterally. Bilateral nonobstructing renal calyceal stones. Stomach and bowel: Unremarkable. No obstruction. No mucosal thickening. Appendix: No evidence of appendicitis. Intraperitoneal space: Large amount of ascites in the abdomen. Vasculature: Reflux of contrast into the intrahepatic veins and inferior vena cava suggestive of congestive heart failure. Inferior vena cava filter seen. The inferior vena cava is not visualized distal to the inferior vena cava suggestive of absence or chronic occlusion. Lymph nodes: Unremarkable. No enlarged lymph nodes. Urinary bladder: Unremarkable as visualized. Reproductive: Unremarkable as visualized. Bones/joints: Unremarkable. No acute fracture. Soft tissues: Unremarkable. CT/CT chest abdpel w/*[id number] IMPRESSION: 1. Patchy bilateral ground-glass airspace opacities suggestive of alveolar edema. 2. Cardiomegaly. 3. Azygos vein is somewhat dilated, findings discontinuation of the inferior vena cava distal to the inferior vena cava filter. 4. Anasarca. IMPRESSION: 1. Negative for focal acute inflammatory process in abdomen or pelvis. 2. Large amount of ascites in the abdomen. 3. Reflux of contrast into the intrahepatic veins and inferior vena cava suggestive of congestive heart failure. 4. Bilateral renal cysts, negative for follow-up advised. 5. Chronic atrophy of the kidneys bilaterally. 6. Bilateral nonobstructing renal calyceal stones. 7. Inferior vena cava filter seen. The inferior vena cava is not visualized distal to the inferior vena cava suggestive of absence or chronic occlusion. COMMENTS: 1. For patients with an IVC filter, recommend assessment for a management plan for the patient's IVC filter. If there is no established management plan, recommend referral to an interventional clinician on a nonemergent basis for evaluation. 2. Consistent with the [employer]'s Incidental Findings Committee white paper (J Am Deb Radiol 2018): Any incidental renal lesion less than 1 cm or classified as too small to characterize, or any incidental cystic renal lesion characterized as simple-appearing, is likely benign. No follow-up imaging is recommended for these lesions per consensus recommendations based on imaging criteria.
[2025-02-26 20:06] LABS: Iron 121 ug/dL (59-158); Percent Saturation 85.2 % (20-50); Thyroid Stimulating Hormone 8.08 uIU/mL (0.27-4.20); Total Iron Binding Capacity 142 mcg/dl; Unsaturated Iron Binding 21 ug/dL (112-347)
--- NOTE | 2025-02-26 20:12 | XRR_ITS ---
PROCEDURE INFORMATION: Exam: XR Chest Exam date and time: 02/26/2025 8:18 PM Age: 39 years old Clinical indication: Other vascular access device placement or adjustment; Central line, non-tunnelled; Prior surgery; Surgery date: 6+ months; Surgery type: Pacer; Check S/P unsuccessful central line placement. TECHNIQUE: Imaging protocol: Radiologic exam of the chest. Views: 1 view. COMPARISON: CR (CHEST, ) 02/26/2025 4:21 PM FINDINGS: Tubes, catheters and devices: Pacer device. Lungs: Unremarkable. No consolidation. Pleural spaces: Unremarkable. No pleural effusion. No pneumothorax. Heart/Mediastinum: Cardiomegaly. Bones/joints: Unremarkable. XR/XR chest 1V portable [id number] IMPRESSION: 1. Cardiomegaly. 2. Pacer device.
--- NOTE | 2025-02-26 20:15 | PC.NURSE ---
Dobutamine Set Rate Prior to patient being in ICU, Dr. Beatty contacted unit and gave telephone order to keep dobutamine at 2 mcg/kg/min, nontitratable.
[2025-02-26 20:41] LABS: Lactate Dehydrogenase 230 U/L (135-225)
[2025-02-26] MEDS: norepinephrine 4 MG/250 ML BAG 37.5 MG IV (21:22)
[2025-02-26] MEDS: DOBUTamine drip 500 MG/250 ML PREMIX 9.19 MG IV (21:22)
[2025-02-26] MEDS: diphenhydrAMINE 50 mg/mL SDV 1mL 25 MG IVP (21:50)
[2025-02-26] MEDS: methylPREDNISolone sod succ 125 mg/2 mL INJ 80 MG IVP (21:50)
[2025-02-26] MEDS: iohexol 350 mg/mL 500 mL Btl (per mL) IV (21:56)
[2025-02-26 22:45] LABS: Vitamin B12 > 2000 pg/mL (232-1245)
[2025-02-26] MEDS: pantoprazole 40 mg SDV IVP (23:03)
[2025-02-26] MEDS: docusate sodium 100 mg Capsule PO (23:03)
[2025-02-26] MEDS: vancomycin 1,250 MG/250 ML PIGGYBACK 166.67 MG IV (23:03)
[2025-02-26] MEDS: FUROsemide 10 mg/mL SDV 10mL 100 MG IVP (23:03)
[2025-02-26] MEDS: piperacillin-tazobactam 3.375 GM in sodium chloride 0.9% (plus) 50 ML IV (23:03)
[2025-02-26 23:17] LABS: Troponin 5 6HR Delta 3.5 ng/L (0-12)
[2025-02-26 23:26] LABS: Troponin 5 6HR 230.5 ng/L (0-15)
[2025-02-26] MEDS: morphine 4 mg/mL SDV 1 mL 2 MG IVP (23:42)
[2025-02-27] VITALS (198 sets, daily range): BP systolic 84–145; BP diastolic 47–108; PULSE 84–128; RESP 11–38; TEMP 36.1–36.9; O2SAT 66–100
[2025-02-27 01:13] LABS: Partial Thromboplastin Time 180.7 SECONDS (23.9-36.7)
--- NOTE | 2025-02-27 02:07 | P.PN_ITS ---
Subjective 2 Subjective: 39-year-old black male admitted with end -stage renal disease on dialysis and recently off his Biktarvy. He states that his doctor was on leave and he could not get his Biktarvy filled. He has been out but it did not stop it on purpose. Patient noted to have pancytopenia and repeat labs showed his platelet count dropped to 33 from 35 on 02/17/2025. The patient has some hematoma in the right groin and the right neck line placement attempts. Charlene his RN asked if we should hold his heparin given for A-fib and elevated troponin. I had her hold that while I came to evaluate the patient. Medications: Medication Review Details: Current drips Levophed at 10 dobutamine at 2 and amiodarone running at 1 mg/min Vitals/I&O/Wt Last Vital Signs Temp 96.4 F L 02/26/25 22:28 Pulse 120 H 02/27/25 01:30 Resp 21 H 02/27/25 01:30 BP 107/64 02/27/25 01:45 Pulse Ox 100 02/27/25 01:45 O2 Del Method Nasal Cannula 02/26/25 23:29 O2 Flow Rate 4 02/26/25 23:29 02/26/25 02/26/25 02/27/25 14:59 22:59 06:59 Intake Total 20.917 / 20.917 696.88 / 717.797 Balance 20.917 / 20.917 696.88 / 717.797 Weight last 48 hrs Weight 63.866 kg Weight 61.235 kg Physical Exam 2 Narrative: General well-developed black male sleeping. He is not in acute cardiopulmonary distress CV irregular tachycardiac with heart rate 115 Lungs clear Right neck hematoma noted but this small and diffuse not particularly tender. Right groin moderate hematoma also not tender and not bounding. Data 02/26/25 16:03 02/26/25 16:03 Micro: Microbiology 02/26/25 22:30 Blood Culture - Preliminary Blood SPECIMEN COLLECTED 02/26/25 22: Blood Culture - Preliminary Blood SPECIMEN COLLECTED A&P Assessment and plan (1) Cardiogenic shock: Stable on pressors (2) Nonischemic cardiomyopathy: 06/26/2023 moderately increased left ventricular cavity size with EF depressed to 30% with global left ventricular hypokinesis and grade 2 diastolic dysfunction moderate mitral valve regurgitation severe tricuspid valve regurgitation noted (3) Atrial fibrillation with rapid ventricular response: Continue with amiodarone. Consider adding digoxin but I am hesitant due to the troponin positivity. Old records show that his troponin is chronically elevated however (4) Congestive heart failure due to cardiomyopathy: Uncertain fluid status at this time without further evaluation is difficult to determine (5) Elevated troponin: Patient's troponin is chronically elevated to the 115-140 but today is 220 (6) Pancytopenia: Suspect this is related to CKD and also being off his Biktarvy (7) Thrombocytopenia: As above hold heparin drip for now due to acute blood loss (8) ESRD (end stage renal disease) on dialysis: Resume dialysis (9) HIV (human immunodeficiency virus infection): Resume Biktarvy (10) Positive RPR test: (11) COPD (chronic obstructive pulmonary disease): (12) Sleep apnea: PDMP PDMP Reviewed: Not Reviewed Attestations 2 Medical Necessity Statement*: Patient will remain in the ICU for greater than 2 midnights Coding Level of Care Code Critical Care >/= 30 minutes Diagnoses Cardiogenic shock R57.0 Nonischemic cardiomyopathy I42.8 Atrial fibrillation with rapid ventricular response I48.91 Congestive heart failure due to cardiomyopathy I50.9; I42.9 Elevated troponin R79.89 Pancytopenia D61.818 Thrombocytopenia D69.6 ESRD (end stage renal disease) on dialysis N18.6; Z99.2 HIV infection, unspecified symptom status B20 Positive RPR test A53.0 COPD (chronic obstructive pulmonary disease) J44.9 Sleep apnea, unspecified type G47.30 Sleep apnea type: unspecified type Time Spent (min) 30
--- NOTE | 2025-02-27 02:12 | PC.NURSE ---
Dr. Hayward notified of patient condition. Upon admission assessment on arrival to unit patient was noted to have swelling and bruising on right neck were previous attempt to place IJ was made, left dorsalis pedis pulse faint and right dorsalis pedis pulse absent and unable to doppler. Order was in place to insert nolan catheter but upon insertion resistance was met and bleeding was noted around catheter, decision was made not to continue with nolan insertion. Bleeding and bruising noted around femoral line with hematoma. Patient has also been having frequent PVC's and runs of Nonsustained vtach on amioderone. Dr. Hayward notified and stated to stop heparin drip, and draw a magnesium and phosphorus level. Dr. Hayward came to bedside and examined patient and looked at right neck and right groin. Dr. Hayward stated to cancel the order for nolan catheter.
[2025-02-27 02:56] LABS: MRSA PCR OZH (swab) NOT DETECTED (Negative)
[2025-02-27 03:01] LABS: Magnesium 2.4 mg/dL (1.7-2.3); Phosphorus 6.2 mg/dL (2.5-4.5)
[2025-02-27] MEDS: norepinephrine 4 MG/250 ML BAG 37.5 MG IV (03:42)
[2025-02-27 04:18] LABS: Estmated Average Glucose 94; Hemoglobin A1C 4.9 % (4.0-6.0)
[2025-02-27 04:57] LABS: Hematocrit 28.1 % (37-53); Lymphocytes # 0.1 10^3/uL (0.8-4.8); Lymphocytes % 3.5 %; Mean Corpuscular HGB Conc 29.2 g/dL (30-55); Mean Corpuscular Hemoglobin 29.3 pg (27-33); Mean Corpuscular Volume 100.4 fl (82-101); Monocytes # 0.1 10^3/uL (0.2-0.9); Monocytes % 2.8 %; Neutrophils # 2.62 10^3/uL (1.8-7.7); Nucleated Red Blood Cells # 0.1 /100WBC; Nucleated Red Blood Cells % 1.8 %; Platelet Count 32 10^3/cmm (157-399); Red Cell Distribution Width 18.7 % (12.1-15.1); White Blood Count 2.82 10^3/uL (3.29-11.43)
[2025-02-27 05:19] LABS: Alanine Aminotransferase 10 U/L (0-41); Albumin Level 3.1 g/dL (3.5-5.2); Alkaline Phosphatase 109 U/L (40-130); Aspartate Amino Transferase 33 U/L (0-40); Blood Urea Nitrogen 40 mg/dL (6-20); Calcium 8.3 mg/dL (8.5-10.5); Carbon Dioxide 20 mmol/L (22-29); Creatinine Clr Calc Pharmacy 17.1261; Globulin 4.6 g/dL (1.3-4.6); Glomerular Filtration Rate 14.3 mL/min (90-130); Glucose 122 mg/dL (65-115); Lactic Sepsis W/Reflex 7.2 mmol/L (0.5-2.2); Magnesium 2.2 mg/dL (1.7-2.3); Total Bilirubin 1.6 mg/dL (0.15-1.2); Total Protein 7.7 g/dL (6.6-8.7)
[2025-02-27 05:24] LABS: Phosphorus 8.2 mg/dL (2.5-4.5)
[2025-02-27 05:43] LABS: Hepatitis A Antibody IgM Non-Reactive (Nonreactive); Hepatitis B Core AB, Total Non-Reactive (Nonreactive); Hepatitis B Surface AB 10.9 (11.5-1000); Hepatitis B Surface Antigen Non-Reactive (Nonreactive); Hepatitis C Virus Antibody Non-Reactive (Nonreactive)
[2025-02-27 05:54] LABS: Anion Gap 29.9 (5-19); Chloride 89 mmol/L (98-107); Osmolality Calculated 289 mOsm/kg (285-295); Potassium 4.9 mmol/L (3.5-5.1); Sodium 134 mmol/L (136-145)
[2025-02-27 06:21] LABS: Slide Review Slide Review Perform
[2025-02-27 06:33] LABS: Reflex Lactate Order REFLEX LACTIC ORDERD
[2025-02-27 06:45] LABS: Chol HDL Ratio 1.73 mg/dL (1.0-5.00); Cholesterol 64 mg/dL (0-200); HDL Cholesterol 37 mg/dL (60-100); LDL Cholesterol Calculated 15 mg/dL (50-129); LDL HDL Ratio 0.41 RATIO (0.00-3.22); Triglycerides 60 mg/dL (0-150)
[2025-02-27 06:51] LABS: Procalcitonin 7.94 ng/mL (0-0.5)
[2025-02-27 08:16] LABS: Lactic Acid level (Lactate) 7.6 mmol/L (0.5-2.2)
[2025-02-27 08:55] LABS: Folate Level 8.1 ng/mL (4.5-32.2)
[2025-02-27] MEDS: amiodarone 150 MG/100 ML PREMIX 400 MG IV (09:20)
[2025-02-27] MEDS: piperacillin-tazobactam 3.375 GM in sodium chloride 0.9% (plus) 50 ML IV ×2 (10:53→21:37)
[2025-02-27] MEDS: norepinephrine 4 MG/250 ML BAG 22.5 MG IV (10:53)
[2025-02-27 11:00] LABS: Hepatitis B Surface AB 9.4 (11.5-1000)
[2025-02-27] MEDS: albumin 25 G/100 ML BAG 60 G IV ×2 (11:08→18:00)
--- NOTE | 2025-02-27 11:56 | PC.PHAR ---
Pharmacy States they didn't show a fill date for Biktarvy . On patients record it stated a last fill date ,so I just left it there . Patient states he hasn't been taking medication because he can't get an appointment with a Doctor.
[2025-02-27 12:18] LABS: Reflex FDPQ test REFLEX FDP QUEST TES
--- NOTE | 2025-02-27 12:28 | PM.CONSULT ---
Providers/Reason For Consult Consulting Physician/Specialty*: [facility]/Nephrology Reason for Consult*: ESRD Attending Physician: Luis Beatty MD Primary Care Provider: Rebecca Montiel MD History of Present Illness History of Present Illness Vivek Harden is a 39 year old male Patient is a 39-year-old male with past medical history significant for end-stage renal disease on dialysis per Friday, congestive cardiac failure, with ejection fraction of 35%, A-fib and HIV was admitted to the hospital due to shortness of breath. EMS was called and found to be in A-fib with RVR. Lab data reviewed. Patient noted to have pancytopenia. Patient is admitted for further management. Review of Systems Narrative: negative Medications/Allergies Home Medications ?Medication ?Instructions ?Recorded ?Confirmed ?Last Taken ?Type metoprolol succinate 100 mg 100 mg PO BID #60 tabs 06/11/23 02/27/25 Unknown Rx tablet,extended release 24 hr albuterol sulfate 2.5 mg/3 mL 2.5 mg (3 mL) inhalation QID PRN 02/17/25 02/27/25 Unknown Rx (0.083 %) solution for nebulization wheezing #90 mL amoxicillin 875 mg-potassium 1 tab PO BID #7 tabs 02/17/25 02/27/25 Unknown Rx clavulanate 125 mg tablet bictegravir 50 mg-emtricitabine 1 tab PO DAILY 30 days #30 tabs 02/27/25 Unknown Rx 200 mg-tenofovir alafenam 25 mg tablet (Biktarvy) prednisone 20 mg tablet 40 mg PO DAILY 02/27/25 02/27/25 Unknown History Allergies Allergy/AdvReac Type Severity Reaction Status Date / Time acetaminophen Allergy Severe ALGY-Hives Verified 02/17/25 13:44 Iodinated Contrast Media Allergy Unknown Verified 02/17/25 13:44 Current Medications Generic Name Dose Route Start Last Admin Trade Name Freq PRN Reason Stop Dose Admin Docusate Sodium 100 mg 02/26/25 22:28 02/27/25 08:44 Docusate Sodium 100 Mg Capsule PO Not Given BID MIGUEL Amiodarone HCl/Dextrose 360 mg in 200 mls @ 0 mls/hr 02/26/25 17:42 02/27/25 09:22 Nexterone IV 0.5 mg/min .Q0M MIGUEL 16.67 mls/hr Protocol Administration Per Protocol Norepinephrine Bitartrate 4 mg in 250 mls @ 0 mls/hr 02/26/25 19:30 02/27/25 10:53 Levophed IV 6 mcg/min .Q0M MIGUEL 22.5 mls/hr Protocol Administration Per Protocol Dobutamine HCl/Dextrose 500 mg in 250 mls @ 3.674 mls/hr 02/26/25 19:30 02/26/25 21:22 Dobutamine Drip IV 5 mcg/kg/min .Q24H MIGUEL 9.19 mls/hr 2 MCG/KG/MIN Administration Piperacillin Sod/Tazobactam 50 mls @ 12.5 mls/hr 02/27/25 11:00 02/27/25 10:53 Sod 3.375 gm/ Sodium Chloride IV 12.5 mls/hr Q12H MIGUEL Administration Albumin Human 25 g in 100 mls @ 60 mls/hr 02/27/25 11:00 02/27/25 11:08 Albumin IV 60 mls/hr Q8H MIGUEL Administration Morphine Sulfate 2 mg 02/26/25 22:28 02/26/25 23:42 Morphine 4 Mg/Ml Sdv 1 Ml IVP 2 mg Q4H PRN Administration SEVERE PAIN Pantoprazole Sodium 40 mg 02/26/25 20:00 02/26/25 23:03 Pantoprazole 40 Mg Sdv IVP 40 mg Q24H MIGUEL Administration PFSH Acute PFSH: Medical History (Updated 02/27/25 @ 14:48 by Luis Beatty MD) Noncompliance Tricuspid regurgitation Atrial fibrillation Nonischemic cardiomyopathy Deep vein thrombosis of left lower extremity Cardiac arrest Hemoptysis Sleep apnea Hyperkalemia Anemia in chronic kidney disease ESRD (end stage renal disease) on dialysis AV fistula HIV carrier History of testicular cancer Treated with orchiectomy, chemotherapy, and retroperitoneal lymph node dissection Surgical History History of inferior vena caval filter placement History of abdominal surgery (05/2009) Retroperitoneal lymph node dissection History of orchiectomy, unilateral (09/2008) Right unilateral orchiectomy with right inguinal lymph node biopsy S/P hemodialysis catheter insertion (11/30/20) R IJ catheter exchange History of removal of Port-a-Cath Family History Mother Stroke Denies family history of Anesthesia complication Bleeding disorder Social History Smoking and tobacco/nicotine status: former use of tobacco/nicotine Quit status (tobacco/nicotine): has quit using Year quit tobacco: 6 + years Former quit date comment: Smoker for 20+ years Alcohol intake: never Substance/Drug Use: current Adopted: No Caregiver/support person: Yes Lives independently: Yes Housing: House Current occupational status: disabled Pets and animals: No Sexually active: Yes Do you think of yourself as: Straight/Heterosexual Current gender identity: Male Josefa/Jewish: Spiritism Vitals/I&O/Wt Last Vital Signs Temp 97.1 F L 02/27/25 05:07 Pulse 114 H 02/27/25 09:05 Resp 18 02/27/25 09:05 BP 114/78 02/27/25 08:30 Pulse Ox 95 02/27/25 09:05 O2 Del Method Room Air 02/27/25 09:05 O2 Flow Rate 4 02/26/25 23:29 02/26/25 02/27/25 02/27/25 22:59 06:59 14:59 Intake Total 20.917 / 20.917 1057.494 / 1078.411 295.011 / 295.011 Balance 20.917 / 20.917 1057.494 / 1078.411 295.011 / 295.011 Weight last 48 hrs Weight 63.866 kg Weight 63.866 kg Weight 61.235 kg Physical Exam Narrative: somnolent , no distress peerla S1S2 , irregular rate and rhythm per report lungs with decreaed BS per report Abd- oft , non tender Ext - no edema Data 02/27/25 04:31 02/27/25 04:31 Micro: Microbiology 02/26/25 22:30 Blood Culture - Preliminary Blood SPECIMEN COLLECTED 02/26/25 22:25 Blood Culture - Preliminary Blood SPECIMEN COLLECTED A&P Assessment and plan (1) ESRD (end stage renal disease) on dialysis: Plan 1. End-stage renal disease: On MWF schedule, HD today due to volume overload. UF as tolerated, on Levophed and dobutamine drips 2. Acute respiratory failure, with pulmonary edema, HD as above 3. A-fib with RVR, on Amio drip 4. History of HIV 5. Pancytopenia, likely due to HIV 6. Anemia, YAZMIN with HD Patient evaluated using audiovisual cart. Time spent 40 minutes. PDMP PDMP Reviewed: Not Reviewed Coding Level of Care Code Acute Code for Chg Fwd Diagnoses ESRD (end stage renal disease) on dialysis N18.6; Z99.2
[2025-02-27 12:33] LABS: INR 1.69 (0.8-1.2)
[2025-02-27 12:35] LABS: Fibrinogen 189 mg/dL (174-498); Partial Thromboplastin Time 38.5 SECONDS (23.9-36.7)
[2025-02-27 12:44] LABS: D Dimer 9.16 ug/mLFEU (0-0.59)
[2025-02-27] MEDS: morphine 4 mg/mL SDV 1 mL 2 MG IVP ×2 (13:17→19:29)
[2025-02-27 14:12] LABS: Adenovirus Not Detected (NOT DETECT); Chlamydia Pneumoniae Not Detected (NOT DETECT); Coronavirus 229E,HKU1,NL63,OC4 Not Detected (NOT DETECT); Human Metapneumovirus Not Detected (NOT DETECT); Human Rhinovirus/Enterovirus Not Detected (NOT DETECT); Influenza A Not Detected (NOT DETECT); Influenza A H1 Not Detected (NOT DETECT); Influenza A H1-2009 Not Detected (NOT DETECT); Influenza A H3 Not Detected (NOT DETECT); Influenza B Not Detected (NOT DETECT); Mycoplasma Pneumoniae Not Detected (NOT DETECT); Parainfluenza Virus Type 1 Not Detected (NOT DETECT); Parainfluenza Virus Type 2 Not Detected (NOT DETECT); Parainfluenza Virus Type 3 Not Detected (NOT DETECT); Parainfluenza Virus Type 4 Not Detected (NOT DETECT); Respiratory Syncytial Virus A Not Detected (NOT DETECT); Respiratory Syncytial Virus B Not Detected (NOT DETECT); SARS-COV-2 Not Detected (NOT DETECT)
--- NOTE | 2025-02-27 14:21 | P.PN_ITS ---
Subjective 2 Subjective: No acute events overnight. Currently seen on dobutamine of 2, Levophed of 10, mean arterial pressure maintained over 65 with heart rate of around 110. Patient states he is feeling better than yesterday. Currently on 4 L. Patient seems more comfortable than yesterday. Denies any nausea vomiting, headache. Complaining of abdominal distention. Overnight episode of hematoma in the groin and neck where attempts were made to place central line. Also had attempt for Mckeon catheterization which was failed. Medications: Medication Review Details: Current drips Levophed at 10 dobutamine at 2 and amiodarone running at 1 mg/min Vitals/I&O/Wt Last Vital Signs Temp 97.0 F L 02/27/25 13:38 Pulse 101 H 02/27/25 13:38 Resp 24 H 02/27/25 13:38 BP 106/85 02/27/25 13:38 Pulse Ox 87 L 02/27/25 13:30 O2 Del Method Room Air 02/27/25 09:05 O2 Flow Rate 4 02/26/25 23:29 02/26/25 02/27/25 02/27/25 22:59 06:59 14:59 Intake Total 20.917 / 20.917 1057.494 / 1078.411 295.011 / 295.011 Balance 20.917 / 20.917 1057.494 / 1078.411 295.011 / 295.011 Weight last 48 hrs Weight 63.866 kg Weight 63.866 kg Weight 61.235 kg Physical Exam 2 Narrative: General: No acute distress, AO x3, sick appearing, tired appearing, fistula present in the left arm HEENT: PERRLA, pupils bilaterally equal and reactive Chest: Normal vesicular breath sounds, no added sounds, equal good air entry bilaterally CVS: S1-S2 irregularly irregular, pansystolic murmur at apex tachycardia, no gallops, no rubs Abdomen: Soft, nontender, no organomegaly, bowel sounds present Neuro: No focal deficits, no facial deformity, AO x3, power 5/5 in all limbs Data 02/27/25 04:31 02/27/25 04:31 Micro: Microbiology 02/26/25 22:30 Blood Culture - Preliminary Blood SPECIMEN COLLECTED 02/26/25 22:25 Blood Culture - Preliminary Blood SPECIMEN COLLECTED A&P Assessment and plan (1) Cardiogenic shock: (2) Nonischemic cardiomyopathy: (3) Atrial fibrillation with rapid ventricular response: (4) Congestive heart failure due to cardiomyopathy: (5) Elevated troponin: (6) Pancytopenia: (7) Thrombocytopenia: (8) ESRD (end stage renal disease) on dialysis: (9) HIV (human immunodeficiency virus infection): (10) Positive RPR test: (11) COPD (chronic obstructive pulmonary disease): (12) Sleep apnea: (13) Noncompliance: Plan 39-year-old gentleman past medical history of end-stage renal disease on hemodialysis Friday, Friday, Friday, congestive systolic heart failure, HIV not currently on treatment presents to the ER with difficulty in breathing and palpitations along with some chest pain. Cardiogenic shock: Peripheries cold. Manual blood pressure of high 80s to low 90s. High concerns for slow flow cardiogenic shock. Appreciate elevated lactate. Will repeat in AM. Maintain mean artery pressure over 65. Shock most likely cardiogenic less likely septic. Follow-up blood culture, urinalysis is not available. Patient states he does not make urine. Appreciate CT chest abdomen pelvis. Appreciate procalcitonin trend. MRSA swab negative. Check respiratory viral panel. Given patient being immunocompromised for nontreated HIV for now continue with IV Zosyn. Discontinue vancomycin as MRSA swab negative. Start on IV albumin every 8 hourly Maintain and titrate Levophed keeping mean artery pressure 65. Maintain dobutamine at 5. Patient does have significant ascites. Will request for paracentesis for possible SBP. Acute decompensated chronic systolic heart failure: Last known EF from 2022 of 30% with grade 2 diastolic dysfunction, moderately dilated RV. Strict and proper charting, daily weights. It seems patient has not taken any of his home HIV and cardiac medications for a while. End-stage renal disease: Patient on hemodialysis for end-stage renal disease. Anuric at baseline. Patient will benefit with dialysis if hemodynamically tolerated. Will consult nephrology for possible dialysis today. A-fib with RVR: Seems patient takes Cardizem and metoprolol at home. Continue with amiodarone drip. Hold off on Cardizem and metoprolol given soft blood pressures. Holding off on heparin drip given multiple site of blood oozing. Will consult cardiology for further recommendations on possible cardioversion. Shortness of breath: Most likely in setting of congestive heart failure. Given pancytopenia with not being on treatment for HIV cannot rule out infectious source. Appreciate LDH. High concerns for uncontrolled HIV though CD4 count is not currently available. Will check PJP PCR, Fungitel. Antibiotic as above. Elevated troponin: Non-ST elevation [place] versus demand ischemia. Check echocardiogram once HR less than 100. Heparin drip as above. Appreciate A1c, lipid panel Aspirin 81 mg daily, statin. HIV: As per patient not on treatment for more than 6 months. Check HIV RNA. CD4 count. Suppose to be on Biktarvy. Will restart once available pharmacy History of RPR positive. Check hepatitis panel and RPR/FTA-ABS. Pancytopenia/thrombocytopenia: Monitor for neutropenia. Could be in setting of active HIV. Patient does have chronic thrombocytopenia but worsening currently. Leukopenia is new. Check for tick panel. Check DIC panel. Hold off on heparin drip as patient has occasional oozing. Can restart in next 24 hours if hemoglobin remains stable. Full code Renal dialysis diet Protonix for PUD prophylaxis Heparin be sufficient for DVT prophylaxis PDMP PDMP Reviewed: Not Reviewed Attestations 2 Medical Necessity Statement*: Requires further hospitalization for management of cardiogenic shock with acute decompensated chronic systolic heart failure, A-fib with RVR in a patient with history of end-stage renal disease on hemodialysis, HIV, noncompliant to medications, pancytopenia Critical Care Time: The high probability of a clinically significant, sudden or life threatening deterioration of the patient's [cardiac, renal, hematological, ID] system(s) required my full and direct attention, intervention and personal management. The critical care time is as shown. This time is in addition to time spent performing any reported procedures but includes the following: [x] Data and vital sign review and interpretation [x] Patient assessment, examination and intervention [x] Documentation [x] Medication orders and management Critical Care Time (min): 80 Coding Level of Care Code Critical Care >/= 30 minutes Critical care time (in minutes): 80 The high probability of a clinically significant, sudden or life threatening deterioration, as referenced in this documentation, required my full and direct attention, intervention and personal management. The critical care time shown is in addition to time spent performing any reported separately billable procedures and includes the following: [x] Data and vital sign review and interpretation [x ] Patient assessment, examination and intervention [x] Medication orders and management [x] Patient/Family updates as able [x] Care Coordination and Documentation. Other Coding Information This patient has a high probability of clinically significant, sudden or life threatening deterioration of the patient's (neurological/pulmonary/cardiac/renal/ID/endocrine) systems required my full, direct attention, the highest level of physician preparedness for urgent intervention and personal management. I managed/supervised life or organ supporting interventions that required frequent physician assessment. I devoted my full attention in the ICU to the direct care of this patient for the period of time indicated above. Time I spent with family or surrogate(s) is included only if the patient was incapable of providing necessary information or participating in decision making. This time includes the following services provided: Telemetry review Hemodynamic interpretation, assessment and management Review and interpretation of CXR Review and interpretation of lab values Review and interpretation of microbiologic data and culture results Review of medications and administration Review and interpretation of Nutrition requirements and management Discussion of management with other consultants and services Clinical update to family members Diagnoses Cardiogenic shock R57.0 Nonischemic cardiomyopathy I42.8 Atrial fibrillation with rapid ventricular response I48.91 Congestive heart failure due to cardiomyopathy I50.9; I42.9 Elevated troponin R79.89 Pancytopenia D61.818 Thrombocytopenia D69.6 ESRD (end stage renal disease) on dialysis N18.6; Z99.2 HIV infection, unspecified symptom status B20 Positive RPR test A53.0 COPD (chronic obstructive pulmonary disease) J44.9 Sleep apnea, unspecified type G47.30 Sleep apnea type: unspecified type Noncompliance Z91.199
[2025-02-27] MEDS: DOBUTamine drip 500 MG/250 ML PREMIX 9.38 MG IV (16:30)
[2025-02-27] MEDS: norepinephrine 4 MG/250 ML BAG 30 MG IV (18:00)
[2025-02-27] MEDS: docusate sodium 100 mg Capsule PO (18:07)
--- NOTE | 2025-02-27 18:17 | PC.NURSE ---
gave verbal order to keep dobutamine gtt at 5 and amio gtt at 0.5 throughout manual plate filler.
--- NOTE | 2025-02-27 19:46 | USCV_ITS ---
Vivek Harden Age: 39 Gender: M : 1985 Exam Date: 02/27/2025 18:21 Ordering Phys: Luis Beatty MD Technologist: Sergei Baugh Exam Location: [facility] [place] Indication: cardiogenic shock, chf BP: 101 / 74 HR: 86 Rhythm: Sinus Technical Quality: Adequate MEASUREMENTS (Male / Female) Normal Values 2D ECHO LV Diastolic Diameter PLAX 5.4 cm 4.2 - 5.9 / 3.9 - 5.3 cm IVS Diastolic Thickness 1.1 cm 0.6 - 1.0 / 0.6 - 0.9 cm IVS Systolic Thickness 1.5 cm LVPW Diastolic Thickness 1.4 cm 0.6 - 1.0 / 0.6 - 0.9 cm LVPW Systolic Thickness 1.6 cm LVOT Diameter 2.2 cm LV Ejection Fraction 2D Teich 46.1 % LV Ejection Fraction MOD 4C 32.9 % LV Ejection Fraction MOD 2C 32.4 % LV Ejection Fraction 2C AL 32.4 % LA Diameter 3.8 cm RA Systolic Volume 4C AL 79.8 ml RA Systolic Volume 4C MOD 81.7 ml LA Sys Volume AL 75.7 cm cubed LA Sys Volume Index AL 43.9 cm cubed/m squared Aorta at Sinotubular Diameter 2.1 cm IVC Diameter 2.3 cm M-MODE LA Ao Ratio MM 1.6 AV Cusp Separation MM 1.3 cm DOPPLER AV Peak Velocity 175.0 cm/s LVOT Peak Velocity 82.0 cm/s AV Area Cont Eq vti 1.5 cm squared AV Area Cont Eq pk 1.8 cm squared TV Peak Velocity 326.4 cm/s TR Peak Velocity 393.0 cm/s TR Peak Gradient 61.8 mmHg TR Mean Velocity 337.0 cm/s TR Mean Gradient 46.2 mmHg TR Velocity Time Integral 114.6 cm PV Peak Velocity 86.7 cm/s RV Ejection Time 0.3 s FINDINGS Left Ventricle Moderately increased left ventricular cavity size. Severely decreased left ventricular systolic function. Left ventricular ejection fraction is estimated at 32 %. Global left ventricular hypokinesis. Flattened septum in systole consistent with right ventricle pressure overload. Right Ventricle Moderately increased right ventricular size. There appeared to be bowing of the interatrial septum from right to left. Right Atrium Severely increased right atrial size. Left Atrium Moderately increased left atrial size. Mitral Valve Thickened mitral valve. No mitral valve stenosis. Moderate- severe mitral valve regurgitation. Aortic Valve Moderate aortic valve calcification. Mild aortic valve stenosis, mean gradient 8.5 mmHg, ANTONIO 1.5 cm squared. Trace aortic valve regurgitation. Tricuspid Valve Eypzqtbb-su-perfhi tricuspid valve regurgitation. Pulmonic Valve Mild pulmonary valve regurgitation. Pericardium Trivial pericardial effusion. Aorta Normal ascending aorta dimension. IVC Inferior vena cava not visualized. CONCLUSIONS Moderately increased left ventricular cavity size. Severely decreased left ventricular systolic function. Left ventricular ejection fraction is estimated at 32 %. Global left ventricular hypokinesis. Moderately increased right ventricular size. There appeared to be bowing of the interatrial septum from right to left. Severely increased right atrial size. Moderately increased left atrial size. Thickened mitral valve. No mitral valve stenosis. Moderate- severe mitral valve regurgitation. Moderate aortic valve calcification. Mild aortic valve stenosis, mean gradient 8.5 mmHg, ANTONIO 1.5 cm squared. Trace aortic valve regurgitation. Mcldgchq-iv-hnsblk tricuspid valve regurgitation. Mild pulmonary valve regurgitation. Shila Lilly MD (Electronically Signed) Final Date: 28 February 2025 15:47 S
[2025-02-27] MEDS: pantoprazole 40 mg SDV IVP (20:25)
[2025-02-27] MEDS: ondansetron 2 mg/ML SDV 2 mL 4 MG IVP (20:55)
--- NOTE | 2025-02-27 21:06 | PC.NURSE ---
Patient vomiting. PRN Zofran administered.
--- NOTE | 2025-02-27 21:16 | PC.NURSE ---
Patient c/o of persistent itching. States he takes 50mg PO Benadryl daily. Provider notified and gave orders for 25mg IVP Diphenhydramine q4h PRN. Order placed. See MAR
[2025-02-27] MEDS: diphenhydrAMINE 50 mg/mL SDV 1mL 25 MG IVP (21:23)
[2025-02-28] VITALS (191 sets, daily range): BP systolic 81–119; BP diastolic 52–85; PULSE 79–104; RESP 13–40; TEMP 35.7–36.6; O2SAT 71–100; BMI 20.9
[2025-02-28] MEDS: DOBUTamine drip 500 MG/250 ML PREMIX 9.38 MG IV (01:01)
[2025-02-28] MEDS: norepinephrine 4 MG/250 ML BAG 22.5 MG IV (01:56)
[2025-02-28] MEDS: albumin 25 G/100 ML BAG 60 G IV ×3 (02:06→17:54)
--- NOTE | 2025-02-28 06:08 | PC.NURSE ---
Patient believed he bumped arm and hit fistula. There was an area of dried blood that did not go past the tape where it had been covered after dialysis. Patient had no complaints of pain at site and there was no further bleeding.
[2025-02-28 06:18] LABS: Hematocrit 23.2 % (37-53); Lymphocytes # 0.1 10^3/uL (0.8-4.8); Mean Corpuscular Volume 96.7 fl (82-101); Monocytes # 0.2 10^3/uL (0.2-0.9); Monocytes % 3.6 %; Neutrophils # 5.47 10^3/uL (1.8-7.7); Neutrophils % 95.1 %; Nucleated Red Blood Cells # 0.1 /100WBC; Nucleated Red Blood Cells % 0.9 %; Platelet Count 33 10^3/cmm (157-399); Red Cell Distribution Width 18.2 % (12.1-15.1); White Blood Count 5.76 10^3/uL (3.29-11.43)
[2025-02-28 06:45] LABS: Lactic Sepsis W/Reflex 2.3 mmol/L (0.5-2.2)
[2025-02-28 06:46] LABS: Alanine Aminotransferase 8 U/L (0-41); Albumin Level 3.6 g/dL (3.5-5.2); Alkaline Phosphatase 102 U/L (40-130); Anion Gap 21.5 (5-19); Aspartate Amino Transferase 25 U/L (0-40); Blood Urea Nitrogen 37 mg/dL (6-20); Calcium 8.6 mg/dL (8.5-10.5); Carbon Dioxide 25 mmol/L (22-29); Chloride 95 mmol/L (98-107); Creatinine Clr Calc Pharmacy 20.3827; Globulin 4.5 g/dL (1.3-4.6); Glomerular Filtration Rate 17.7 mL/min (90-130); Glucose 121 mg/dL (65-115); Magnesium 2.2 mg/dL (1.7-2.3); Osmolality Calculated 294 mOsm/kg (285-295); Phosphorus 6.8 mg/dL (2.5-4.5); Potassium 4.5 mmol/L (3.5-5.1); Sodium 137 mmol/L (136-145); Total Bilirubin 1.1 mg/dL (0.15-1.2); Total Protein 8.1 g/dL (6.6-8.7)
[2025-02-28 07:58] LABS: Reflex Lactate Order REFLEX LACTIC ORDERD
[2025-02-28] MEDS: aspirin 81 mg EC Tablet PO (08:30)
[2025-02-28] MEDS: docusate sodium 100 mg Capsule PO ×2 (08:30→17:54)
[2025-02-28] MEDS: morphine 4 mg/mL SDV 1 mL 2 MG IVP ×2 (10:05→20:12)
[2025-02-28] MEDS: piperacillin-tazobactam 3.375 GM in sodium chloride 0.9% (plus) 50 ML IV ×2 (10:05→22:42)
[2025-02-28 10:43] LABS: Lactic Acid level (Lactate) 2.7 mmol/L (0.5-2.2)
--- NOTE | 2025-02-28 11:45 | P.PN_ITS ---
Subjective 2 Subjective: According to the day nurse, the patient was awake earlier, but when he was seen in the room, he was sound asleep, and did not intend to wake up despite attempts to not attempt. He had no complaints. He was getting dialysis while in the room. Per the dialysis nurse, given his low blood pressures, the goal of 2.5 mL was not to be achieved today. 2.5 L of fluid was removed on 02/27/2025. Nurse states that the patient is still on amiodarone drip despite converting to NSR around 5pm on 02/27/2025. Per Cardiology, there is concern for pericarditis. Given current work up on the way, I agreed to colchicine. Discussed w/ ID about the plan for the patient mgmt Medications: Reviewed: Yes Medication Review Details: Current drips Levophed at 10 dobutamine at 2 and amiodarone running at 1 mg/min Vitals/I&O/Wt Last Vital Signs Temp 97.0 F L 02/28/25 09:51 Pulse 89 02/28/25 09:51 Resp 20 H 02/28/25 10:05 BP 104/72 02/28/25 09:51 Pulse Ox 95 02/28/25 09:30 O2 Del Method Room Air 02/28/25 09:11 O2 Flow Rate 4 02/26/25 23:29 02/27/25 02/28/25 02/28/25 22:59 06:59 14:59 Intake Total 1535.212 / 1930.223 638 / 2568.223 200 / 200 Output Total 3150 / 3150 Balance -1614.788 / -1219.777 638 / -581.777 200 / 200 Weight last 48 hrs Weight 62.5 kg Weight 62.5 kg Weight 62.5 kg Weight 63.866 kg Weight 63.866 kg Weight 61.235 kg Physical Exam 2 Narrative: Constitutional: GENERAL APPEARANCE: cooperative, comfortable and appears older than stated age; not combative, not disheveled, not ill appearing and not frail appearing HENT: HEAD & SCALP: normocephalic and atraumatic; NOSE: external nose not normal EXTERNAL EAR: no external ears normal MOUTH: Normal oral and palatal mucosa present THROAT: posterior oropharynx normal Eye: PERRL, EOMI, normal conjunctiva b/l Neck: normal visual inspection, trachea midline, No anterior neck swelling, No tracheal deviation, No tracheostomy present, no submandibular swelling, Thyroid normal , cervical ROM normal Lymph: no cervical, supraclavicular LAD Resp: no use of accessory muscles, CTAB, no w/r/r Cardio: RRR, no m/r/g, or clicks. 2+ radial and DP pulses. GI: normoactive bowel sounds, distended abdomen, but no guarding, no rigidity, no rebound tenderness, no tenderness to palpation, no hepatosplenomegaly. 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: (5) Elevated troponin: (6) Pancytopenia: (7) Thrombocytopenia: (8) ESRD (end stage renal disease) on dialysis: (9) HIV (human immunodeficiency virus infection): (10) Positive RPR test: (11) COPD (chronic obstructive pulmonary disease): (12) Sleep apnea: (13) Noncompliance: Plan (1) Cardiogenic shock: (2) Nonischemic cardiomyopathy: (3) Atrial fibrillation with rapid ventricular response: (4) Congestive heart failure due to cardiomyopathy: (5) Elevated troponin: (6) Pancytopenia: (7) Thrombocytopenia: (8) ESRD (end stage renal disease) on dialysis: (9) HIV (human immunodeficiency virus infection): (10) Positive RPR test: (11) COPD (chronic obstructive pulmonary disease): (12) Sleep apnea: (13) Noncompliance: Plan 39-year-old gentleman past medical history of end-stage renal disease on hemodialysis Friday, Friday, Friday, congestive systolic heart failure, HIV not currently on treatment presents to the ER with difficulty in breathing and palpitations along with some chest pain. Cardiogenic shock: Peripheries cold. Manual blood pressure of high 80s to low 90s. High concerns for slow flow cardiogenic shock. Appreciate elevated lactate. Will repeat in AM. Maintain mean artery pressure over 65. Shock most likely cardiogenic less likely septic. Follow-up blood culture, urinalysis is not available. Patient states he does not make urine. Appreciate CT chest abdomen pelvis. Appreciate procalcitonin trend. MRSA swab negative. Check respiratory viral panel. Given patient being immunocompromised for nontreated HIV for now continue with IV Zosyn. Discontinue vancomycin as MRSA swab negative. Start on IV albumin every 8 hourly Maintain and titrate Levophed keeping mean artery pressure 65. Maintain dobutamine at 5. Patient does have significant ascites. Will request for paracentesis for possible SBP. Acute decompensated chronic systolic heart failure: Last known EF from 2022 of 30% with grade 2 diastolic dysfunction, moderately dilated RV. Strict and proper charting, daily weights. It seems patient has not taken any of his home HIV and cardiac medications for a while. End-stage renal disease: Patient on hemodialysis for end-stage renal disease. Anuric at baseline. Patient will benefit with dialysis if hemodynamically tolerated. Will consult nephrology for possible dialysis today. A-fib with RVR: Seems patient takes Cardizem and metoprolol at home. Off amiodarone drip on 02/28/2025. Per Cards, plan to transition to po in the AM of 03/01. Holding off on heparin drip given multiple site of blood oozing. Will consult cardiology for further recommendations on possible cardioversion. Shortness of breath: Most likely in setting of congestive heart failure. Given pancytopenia with not being on treatment for HIV cannot rule out infectious source. Appreciate LDH. High concerns for uncontrolled HIV though CD4 count is not currently available. F/u PJP PCR, Fungitel. Antibiotic as above. Elevated troponin: Non-ST elevation [place] versus demand ischemia. Check echocardiogram once HR less than 100. Heparin drip as above. Appreciate A1c, lipid panel Aspirin 81 mg daily, statin. HIV: As per patient not on treatment for more than 6 months. Check HIV RNA. CD4 count. Suppose to be on Biktarvy. Will restart once available pharmacy History of RPR positive. Check hepatitis panel and RPR/FTA-ABS. Pancytopenia/thrombocytopenia: Monitor for neutropenia. Could be in setting of active HIV. Patient does have chronic thrombocytopenia but worsening currently. Leukopenia is new. Check for tick panel. DIC panel negative for DIC. Hold off on heparin drip as patient has occasional oozing. Can restart in next 24 hours if hemoglobin remains stable. Full code Renal dialysis diet Protonix for PUD prophylaxis Heparin be sufficient for DVT prophylaxis PDMP PDMP Reviewed: Not Reviewed Attestations 2 Medical Necessity Statement*: The patient remains hospitalized for greater than 2 midnights for cardiogenic shock requiring 2 vasopressors at this time, A-fib with RVR and ascites. Other Coding Information Focused coding review requested Diagnoses Cardiogenic shock R57.0 Nonischemic cardiomyopathy I42.8 Atrial fibrillation with rapid ventricular response I48.91 Congestive heart failure due to cardiomyopathy I50.9; I42.9 Elevated troponin R79.89 Pancytopenia D61.818 Thrombocytopenia D69.6 ESRD (end stage renal disease) on dialysis N18.6; Z99.2 HIV infection, unspecified symptom status B20 Positive RPR test A53.0 COPD (chronic obstructive pulmonary disease) J44.9 Sleep apnea, unspecified type G47.30 Sleep apnea type: unspecified type Noncompliance Z91.199
--- NOTE | 2025-02-28 12:18 | P.PN_ITS ---
<Statement entered by Elgin Lewis M.D - 03/02/25 09:34> Patient was cared for in conjunction with an advanced practice practitioner.? I reviewed the chart and all pertinent data including imaging, telemetry, and laboratory results.? I discussed the patient in detail with the advanced practice practitioner.? Please see? their note for complete progress note, testing results and agreed upon plan of care for the patient. Subjective 2 Subjective: Patient doing okay this morning. He is getting dialysis today. He does state his shortness of breath has improved. He is currently on Levophed at 6 and dobutamine at 5. He was complaining of some mild chest discomfort this morning. He states he has had it his entire hospital stay and that pain medication helps with this. He states that it is sharp and worse when he breathes deep and tender as well. He states it hurts when he coughs indicating this could possibly have a musculoskeletal component. He had a negative cath 2 years ago. Troponins are elevated at baseline. Was [phone]. He does have a slight pericardial rub on exam. He did have a pericardial effusion on echo. Platelets are still low at 33. Current rate is well controlled at 89. BP stable at 104/72. His O2 sat is 95% on room air. Vitals/I&O/Wt Last Vital Signs Temp 97.0 F L 02/28/25 09:51 Pulse 89 02/28/25 09:51 Resp 20 H 02/28/25 10:05 BP 104/72 02/28/25 09:51 Pulse Ox 95 02/28/25 09:30 O2 Del Method Room Air 02/28/25 09:11 O2 Flow Rate 4 02/26/25 23:29 02/27/25 02/28/25 02/28/25 22:59 06:59 14:59 Intake Total 1535.212 / 1930.223 638 / 2568.223 200 / 200 Output Total 3150 / 3150 Balance -1614.788 / -1219.777 638 / -581.777 200 / 200 Weight last 48 hrs Weight 137 lb 12.623 oz Weight 137 lb 12.623 oz Weight 137 lb 12.623 oz Weight 140 lb 12.8 oz Weight 140 lb 12.8 oz Weight 135 lb Physical Exam 2 Narrative: General: No apparent distress, healthy appearing, well nourished HENMT: normoceophalic Muskuloskeletal: Full ROM Respiratory: Normal respiratory effort, clear to auscultation bilaterally throughout all lung du, no use of accessory muscles Cardio: No JVD, regular rate, regular rhythm, S1 S2 normal, no murmurs, peripheral pulses 2+ radial palpated bilaterally GI: slightly distended Extremities: Full ROM, normal, normal capillary refill, no cyanosis or edema Neuro: Alert and oriented x4, no focal motor deficits Psych: Affect normal Skin: No rashes or lesions noted, no wounds Data 02/28/25 06:02 02/28/25 06:02 Micro: Microbiology 02/26/25 22:30 Blood Culture - Preliminary Blood NEGATIVE TO DATE 02/26/25 22:25 Blood Culture - Preliminary Blood NEGATIVE TO DATE A&P Assessment and plan (1) Congestive heart disease: (2) Nonischemic cardiomyopathy: (3) Atrial fibrillation: (4) Acute chest pain: (5) Cardiogenic shock: (6) Congestive heart failure due to cardiomyopathy: (7) Elevated troponin: (8) Thrombocytopenia: (9) Pericarditis: Plan At this time, will start colchicine 0.3 mg twice weekly on days patient is not getting dialysis (Tuesdays and ) for suspected pericarditis. Did discuss this with nephrology and hospitalist team. EKG will be done. Will recheck troponins this afternoon. Continue to avoid anticoagulants or heparin due to low rbc and platelet count. No evidence of bleeding at this time. Continue to wean levophed. Clinically, aptient looks good from a heart failure standpoint. Will transition patient from amio drip to oral amiodarone at 400 mg BID. PDMP PDMP Reviewed: Not Reviewed Attestations 2 Medical Necessity Statement*: Deferred to primary. Coding Level of Care Code Acute Code for [facility] Fwd Diagnoses Acute on chronic systolic congestive heart failure I50.23 Heart failure chronicity: acute on chronic Heart failure type: systolic Nonischemic cardiomyopathy I42.8 Paroxysmal atrial fibrillation I48.0 Atrial fibrillation type: paroxysmal Acute chest pain R07.9 Cardiogenic shock R57.0 Congestive heart failure due to cardiomyopathy I50.9; I42.9 Elevated troponin R79.89 Thrombocytopenia D69.6 Acute idiopathic pericarditis I30.0 Chronicity: acute Pericarditis type: idiopathic
[2025-02-28 12:20] LABS: RPR w(Moniotor) w/REFL Titer NON-REACTIVE (NON-REACTIVE)
--- NOTE | 2025-02-28 12:31 | ECG_ITS ---
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1985 Requested By: Danica Ansari Order Number: [id number] Reading MD: ELIZABETH OSORIO Measurements Intervals [place] Rate: 83 P: 32 MI: 164 QRS: 11 QRSD: 106 T: -89 QT: 309 QTc: 363 Interpretive Statements SINUS RHYTHM WITH OCCASIONAL VENTRICULAR PREMATURE COMPLEXES POSSIBLE LEFT ATRIAL ENLARGEMENT [-0.1mV P-WAVE IN V1/V2] ST DEVIATION AND MODERATE T-WAVE ABNORMALITY, CONSIDER INFERIOR ISCHEMIA [-0.1+ mV T-WAVE IN II/aVF] Compared to ECG 02/26/2025 15:34:24 Ventricular premature complex(es) now present Possible ischemia now present Atrial fibrillation no longer present T-wave abnormality still present Electronically Signed On 03-02-2025 23:03:03 CDT by ELIZABETH OSORIO [email or web address]
[2025-02-28] MEDS: amiodarone 200 mg Tablet 400 MG PO ×2 (13:26→17:54)
[2025-02-28] MEDS: norepinephrine 4 MG/250 ML BAG 37.5 MG IV (13:26)
--- NOTE | 2025-02-28 13:35 | PC.SOCIAL ---
IMM Updated Updated pt's on IMM. No questions voiced. Provided pt a copy. Initialed, dated, & timed a copy & placed in chart.
[2025-02-28 13:41] LABS: Troponin(5th) Baseline 214 ng/L (0-15)
--- NOTE | 2025-02-28 14:38 | ECG_ITS ---
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1985 Requested By: Danica Ansari Order Number: [id number] Reading MD: ELIZABETH OSORIO Measurements Intervals [place] Rate: 81 P: 113 ID: [id number] QRS: 163 QRSD: 103 T: 90 QT: 422 QTc: 492 Interpretive Statements SINUS RHYTHM ARM LEADS REVERSED [INVERTED P AND QRS IN I] Compared to ECG 02/28/2025 12:49:30 Ventricular premature complex(es) no longer present T-wave abnormality no longer present Possible ischemia no longer present Electronically Signed On 03-02-2025 23:03:14 CDT by ELIZABETH OSORIO [email or web address]
--- NOTE | 2025-02-28 14:43 | PM.PN ---
Subjective Subjective: on 4L nc Medications: Reviewed: Yes Vitals/I&O/Wt Last Vital Signs Temp 97.0 F L 02/28/25 09:51 Pulse 79 02/28/25 12:30 Resp 21 H 02/28/25 12:30 BP 97/69 02/28/25 12:30 Pulse Ox 91 02/28/25 12:30 O2 Del Method Room Air 02/28/25 09:11 O2 Flow Rate 4 02/26/25 23:29 02/27/25 02/28/25 02/28/25 22:59 06:59 14:59 Intake Total 1535.212 / 1930.223 638 / 2568.223 450.00 / 450.00 Output Total 3150 / 3150 Balance -1614.788 / -1219.777 638 / -581.777 450.00 / 450.00 Weight last 48 hrs Weight 62.5 kg Weight 62.5 kg Weight 62.5 kg Weight 63.866 kg Weight 63.866 kg Weight 61.235 kg Physical Exam Narrative: awake , alert , no distress peerla S1S2 , irregular rate and rhythm per report lungs with decreaed BS per report Abd- oft , non tender Ext - no edema Data 02/28/25 06:02 02/28/25 06:02 Micro: Microbiology 02/26/25 22:30 Blood Culture - Preliminary Blood NEGATIVE TO DATE 02/26/25 22:25 Blood Culture - Preliminary Blood NEGATIVE TO DATE A&P Assessment and plan (1) ESRD (end stage renal disease) on dialysis: Plan 1. End-stage renal disease: On MWF schedule, HD yesterday and HD today due to volume overload. UF as tolerated, on Levophed and dobutamine drips 2. Acute respiratory failure, with pulmonary edema, HD as above 3. A-fib with RVR, on Amio drip 4. History of HIV 5. Pancytopenia, likely due to HIV 6. Anemia, YAZMIN with HD Patient evaluated using audiovisual cart. Time spent 40 minutes. PDMP PDMP Reviewed: Not Reviewed Attestations Medical Necessity Statement*: [facility] Coding Level of Care Code Acute Code for [facility] Fwd Diagnoses ESRD (end stage renal disease) on dialysis N18.6; Z99.2
[2025-02-28 15:45] LABS: Troponin 5 2HR Delta -0.5 ABS# (0-10)
[2025-02-28 15:46] LABS: Troponin 5 2HR 213.5 ng/L (0-15)
--- NOTE | 2025-02-28 16:43 | P.CONIM_ITS ---
Providers/Reason For Consult 2 Consulting Physician/Specialty*: Elgin Lewis MD/ Cardiology (PLEASE CONSIDER THIS CONSULT NOTE FROM 02/27/2025, PATIENT WAS SEEN AND MANAGED YESTERDAY BUT NOTE WAS MISSED) Reason for Consult*: Atrial fibrillation with RVR Requesting Physician: Dr Beatty Attending Physician: Ivis Luciano MD Primary Care Provider: Rebecca Montiel MD History of Present Illness History of Present Illness Vivek Harden is a 39 year old male with past medical history of HIV, nonischemic cardiomyopathy has presented to hospital with shortness of breath. He was found to be in A-fib with RVR. He was put on dobutamine gtt. as there was concern of cardiogenic shock. Patient was put on amiodarone and is currently in sinus rhythm. He has on and off chest discomfort episodes specially with taking deep breath. Review of Systems 2 Card: Reports: chest pain Resp: Reports: dyspnea (intermittent) and productive cough GI: Denies: nausea or vomiting Medications/Allergies Home Medications ?Medication ?Instructions ?Recorded ?Confirmed ?Last Taken ?Type metoprolol succinate 100 mg 100 mg PO BID #60 tabs 02/27/25 Unknown Rx tablet,extended release 24 hr albuterol sulfate 2.5 mg/3 mL 2.5 mg (3 mL) inhalation QID PRN 02/17/25 02/27/25 Unknown Rx (0.083 %) solution for nebulization wheezing #90 mL amoxicillin 875 mg-potassium 1 tab PO BID #7 tabs 01/2802/27/25 Unknown Rx clavulanate 125 mg tablet bictegravir 50 mg-emtricitabine 1 tab PO DAILY 30 days #30 tabs 02/27/25 Unknown Rx 200 mg-tenofovir alafenam 25 mg tablet (Biktarvy) prednisone 20 mg tablet 40 mg PO DAILY 02/27/2510/23 Unknown History Allergies Allergy/AdvReac Type Severity Reaction Status Date / Time acetaminophen Allergy Severe ALGY-Hives Verified 02/17/25 13:44 Iodinated Contrast Media Allergy Unknown Verified 02/17/25 13:44 Current Medications Generic Name Dose Route Start Last Admin Trade Name Freq PRN Reason Stop Dose Admin Amiodarone HCl 400 mg 02/28/25 12:45 02/28/25 13:26 Amiodarone 200 Mg Tablet PO 400 mg BID MIGUEL Administration Aspirin 81 mg 02/28/25 09:00 02/28/25 08:30 Aspirin 81 Mg Ec Tablet PO 81 mg DAILY MIGUEL Administration Diphenhydramine HCl 25 mg 02/27/25 21:15 02/27/25 21:23 Diphenhydramine 50 Mg/Ml Sdv 1ml IVP 25 mg Q4H PRN Administration ITCHING Docusate Sodium 100 mg 02/26/25 22:28 02/28/25 08:30 Docusate Sodium 100 Mg Capsule PO 100 mg BID MIGUEL Administration Norepinephrine Bitartrate 4 mg in 250 mls @ 0 mls/hr 02/26/25 19:30 02/28/25 13:26 Levophed IV 10 mcg/min .Q0M MIGUEL 37.5 mls/hr Protocol Administration Per Protocol Piperacillin Sod/Tazobactam 50 mls @ 12.5 mls/hr 02/27/25 11:00 02/28/25 10:05 Sod 3.375 gm/ Sodium Chloride IV 12.5 mls/hr Q12H MIGUEL Administration Albumin Human 25 g in 100 mls @ 60 mls/hr 02/27/25 11:00 02/28/25 10:05 Albumin IV 60 mls/hr Q8H MIGUEL Administration Dobutamine HCl/Dextrose 500 mg in 250 mls @ 0 mls/hr 02/27/25 18:30 02/28/25 01:01 Dobutamine Drip IV 5 mcg/kg/min .Q0M MIGUEL 9.38 mls/hr Protocol Administration Per Protocol Morphine Sulfate 2 mg 02/26/25 22:28 02/28/25 10:05 Morphine 4 Mg/Ml Sdv 1 Ml IVP 2 mg Q4H PRN Administration SEVERE PAIN Ondansetron HCl 4 mg 02/26/25 22:28 02/27/25 20:55 Ondansetron 2 Mg/Ml Sdv 2 Ml IVP 4 mg Q6H PRN Administration vomiting, or N/V if npo Pantoprazole Sodium 40 mg 02/26/25 20:00 02/27/25 20:25 Pantoprazole 40 Mg Sdv IVP 40 mg Q24H MIGUEL Administration PFSH Acute 2 PFSH: Medical History (Updated 02/28/25 @ 12:34 by Danica Ansari NP) Noncompliance Tricuspid regurgitation Atrial fibrillation Nonischemic cardiomyopathy Deep vein thrombosis of left lower extremity Cardiac arrest Hemoptysis Sleep apnea Hyperkalemia Anemia in chronic kidney disease ESRD (end stage renal disease) on dialysis AV fistula HIV carrier History of testicular cancer Treated with orchiectomy, chemotherapy, and retroperitoneal lymph node dissection Surgical History History of inferior vena caval filter placement History of abdominal surgery (05/2009) Retroperitoneal lymph node dissection History of orchiectomy, unilateral (09/2008) Right unilateral orchiectomy with right inguinal lymph node biopsy S/P hemodialysis catheter insertion (11/30/20) R IJ catheter exchange History of removal of Port-a-Cath Family History Mother Stroke Denies family history of Anesthesia complication Bleeding disorder Social History Smoking and tobacco/nicotine status: former use of tobacco/nicotine Quit status (tobacco/nicotine): has quit using Year quit tobacco: 6 + years Former quit date comment: Smoker for 20+ years Alcohol intake: never Substance/Drug Use: current Adopted: No Caregiver/support person: Yes Lives independently: Yes Housing: House Current occupational status: disabled Pets and animals: No Sexually active: Yes Do you think of yourself as: Straight/Heterosexual Current gender identity: Male Josefa/Baptist: [employer] Vitals/I&O/Wt Last Vital Signs Temp 97.0 F L 02/28/25 09:51 Pulse 79 02/28/25 12:30 Resp 21 H 02/28/25 12:30 BP 97/69 02/28/25 12:30 Pulse Ox 91 02/28/25 12:30 O2 Del Method Room Air 02/28/25 09:11 O2 Flow Rate 4 02/26/25 23:29 02/28/25 02/28/25 02/28/25 06:59 14:59 22:59 Intake Total 638 / 2568.223 450.00 / 450.00 Balance 638 / -581.777 450.00 / 450.00 Weight last 48 hrs Weight 137 lb 12.623 oz Weight 137 lb 12.623 oz Weight 137 lb 12.623 oz Weight 140 lb 12.8 oz Weight 140 lb 12.8 oz Physical Exam 2 Narrative: GENERAL: Patient is alert, awake and oriented x3. [] NECK: No jugular vein distension. [] HEENT: No cyanosis. No icterus. No pallor. [] HEART: Regular S1 and S2. Pericardial rub noted LUNGS: Clear to auscultate bilaterally. [] CENTRAL NERVOUS SYSTEM: Grossly nonfocal. [] EXTREMITIES: Lower extremities with 1+ edema bilaterally. Data 02/28/25 06:02 02/28/25 06:02 Micro: Microbiology 02/26/25 22:30 Blood Culture - Preliminary Blood NEGATIVE TO DATE 02/26/25 22:25 Blood Culture - Preliminary Blood NEGATIVE TO DATE A&P Assessment and plan (1) Cardiogenic shock: (2) Nonischemic cardiomyopathy: (3) Atrial fibrillation with rapid ventricular response: (4) Congestive heart failure due to cardiomyopathy: (5) Elevated troponin: (6) Pancytopenia: (7) Thrombocytopenia: (8) ESRD (end stage renal disease) on dialysis: (9) HIV (human immunodeficiency virus infection): (10) COPD (chronic obstructive pulmonary disease): (11) Sleep apnea: (12) Noncompliance: Plan Patient has converted to sinus rhythm with amiodarone. Will switch to p.o. tomorrow. Unfortunately cannot be anticoagulated secondary to severe thrombocytopenia. Dobutamine to be weaned off by tomorrow. Levophed as needed. Echocardiogram ordered. Thank you for involving us with care of this patient. Please call with questions PDMP PDMP Reviewed: Not Reviewed Consult Attestations 2 Medical Necessity Statement: Care expected to cross 2 midnights. Coding Level of Care Code Acute Code for [facility] Fwd Diagnoses Cardiogenic shock R57.0 Nonischemic cardiomyopathy I42.8 Atrial fibrillation with rapid ventricular response I48.91 Congestive heart failure due to cardiomyopathy I50.9; I42.9 Elevated troponin R79.89 Pancytopenia D61.818 Thrombocytopenia D69.6 ESRD (end stage renal disease) on dialysis N18.6; Z99.2 HIV infection, unspecified symptom status B20 COPD (chronic obstructive pulmonary disease) J44.9 Sleep apnea, unspecified type G47.30 Sleep apnea type: unspecified type Noncompliance Z91.199
[2025-02-28 19:36] LABS: Troponin 5 6HR Delta -12.4 ng/L (0-12)
[2025-02-28 19:38] LABS: Troponin 5 6HR 201.6 ng/L (0-15)
[2025-02-28] MEDS: pantoprazole 40 mg SDV IVP (20:12)
[2025-02-28] MEDS: norepinephrine 4 MG/250 ML BAG 30 MG IV (20:12)
[2025-02-28] MEDS: diphenhydrAMINE 50 mg/mL SDV 1mL 25 MG IVP (20:13)
--- NOTE | 2025-02-28 23:15 | PC.NURSE ---
Patients 6/2 morning HGB and HCT were low and continuing to trend down. No new orders were received per dayshift nurse. Patient says he is not opposed to receiving blood products. 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
[2025-03-01] VITALS (157 sets, daily range): BP systolic 88–111; BP diastolic 58–85; PULSE 56–92; RESP 9–48; TEMP 36.3–36.8; O2SAT 45–100; BMI 20.9
[2025-03-01 02:11] LABS: Hematocrit 23.5 % (37-53); Lymphocytes # 0.1 10^3/uL (0.8-4.8); Lymphocytes % 2.2 %; Mean Corpuscular HGB Conc 29.8 g/dL (30-55); Mean Corpuscular Hemoglobin 29.7 pg (27-33); Mean Corpuscular Volume 99.6 fl (82-101); Monocytes # 0.1 10^3/uL (0.2-0.9); Monocytes % 2.5 %; Neutrophils # 5.21 10^3/uL (1.8-7.7); Neutrophils % 94.6 %; Nucleated Red Blood Cells # 0.1 /100WBC; Nucleated Red Blood Cells % 1.1 %; Platelet Count 29 10^3/cmm (157-399); Red Blood Count 2.36 10^6/uL (3.85-5.65); Red Cell Distribution Width 18.8 % (12.1-15.1); White Blood Count 5.51 10^3/uL (3.29-11.43)
[2025-03-01 02:25] LABS: Partial Thromboplastin Time 36.6 SECONDS (23.9-36.7)
[2025-03-01 02:27] LABS: Slide Review Slide Review Perform
[2025-03-01] MEDS: DOBUTamine drip 500 MG/250 ML PREMIX 9.38 MG IV (02:29)
[2025-03-01 02:31] LABS: Alanine Aminotransferase 7 U/L (0-41); Alkaline Phosphatase 110 U/L (40-130); Anion Gap 18.8 (5-19); Aspartate Amino Transferase 22 U/L (0-40); Blood Urea Nitrogen 29 mg/dL (6-20); Carbon Dioxide 28 mmol/L (22-29); Chloride 94 mmol/L (98-107); Creatinine Clr Calc Pharmacy 24.2105; Globulin 4.5 g/dL (1.3-4.6); Glomerular Filtration Rate 21.5 mL/min (90-130); Glucose 107 mg/dL (65-115); Magnesium 2.1 mg/dL (1.7-2.3); Osmolality Calculated 290 mOsm/kg (285-295); Potassium 3.8 mmol/L (3.5-5.1); Sodium 137 mmol/L (136-145); Total Bilirubin 1.1 mg/dL (0.15-1.2); Total Protein 8.5 g/dL (6.6-8.7)
[2025-03-01] MEDS: albumin 25 G/100 ML BAG 60 G IV ×3 (03:20→20:34)
[2025-03-01] MEDS: norepinephrine 4 MG/250 ML BAG 30 MG IV (03:55)
--- NOTE | 2025-03-01 03:58 | PC.NURSE ---
Provider notified of patients Hemoglobin and Hematocrit levels.
[2025-03-01] MEDS: colchicine 0.6 mg Tablet 0.3 MG PO (08:51)
[2025-03-01] MEDS: amiodarone 200 mg Tablet 400 MG PO ×2 (08:52→17:50)
[2025-03-01] MEDS: docusate sodium 100 mg Capsule PO ×2 (08:52→17:50)
[2025-03-01] MEDS: morphine 4 mg/mL SDV 1 mL 2 MG IVP ×3 (08:52→22:20)
--- NOTE | 2025-03-01 10:10 | P.PN_ITS ---
Subjective 2 Subjective: The patient was asleep but was easily arousable. He states that he ate a taco today and subsequently had an episode of emesis. The patient complains of his distended abdomen and endorses constipation. He is currently on Levophed and dobutamine. He was seen by cardiology who transitioned him to oral amiodarone 400mg BID. He was seen by ID who ordered his Biktarvy and had the medications delivered to bedside, so that the patient can start taking the medications. Platelets were ordered for transfusion in order for the patient to get a paracentesis, but given the time duration that they take to arrive from [place], [place], platelets transfusion is planned for 03/02/2025. Patient also remains anemic, likely AOCD due to his ESRD, but due to other multifactorial reasons. Will transfuse 1 unit prbc in the a.m. of 03 02, especially given his HFrEF. Vitals/I&O/Wt Last Vital Signs Temp 97.6 F 03/01/25 04:05 Pulse 87 03/01/25 07:41 Resp 18 03/01/25 08:52 BP 108/69 03/01/25 04:02 Pulse Ox 94 03/01/25 08:52 O2 Del Method Room Air 03/01/25 07:41 O2 Flow Rate 4 03/01/25 04:02 02/28/25 03/01/25 03/01/25 22:59 06:59 14:59 Intake Total 900 / 1460.002 650 / 2110.002 220.846 / 220.846 Output Total 1999 Balance -1100 / -539.998 650 / 110.002 220.846 / 220.846 Weight last 48 hrs Weight 62.5 kg Weight 63 kg Weight 62.5 kg Weight 62.5 kg Weight 62.5 kg Physical Exam 2 Narrative: Constitutional: GENERAL APPEARANCE: cooperative, comfortable and appears older than stated age; not combative, not disheveled, not ill appearing and not frail appearing HENT: HEAD & SCALP: normocephalic and atraumatic; NOSE: external nose not normal EXTERNAL EAR: no external ears normal MOUTH: Normal oral and palatal mucosa present THROAT: posterior oropharynx normal Eye: PERRL, EOMI, normal conjunctiva b/l Neck: normal visual inspection, trachea midline, No anterior neck swelling, No tracheal deviation, No tracheostomy present, no submandibular swelling, Thyroid normal , cervical ROM normal Lymph: no cervical, supraclavicular LAD Resp: no use of accessory muscles; absent breath sounds in the R. mid to lower lung du. Crackles in the L. lower lung du. Cardio: RRR, no m/r/g, or clicks. 2+ radial and DP pulses. GI: normoactive bowel sounds, distended abdomen, but no guarding, no rigidity, no rebound tenderness, no tenderness to palpation, no hepatosplenomegaly. : Deferred Back/Pelvis: Deferred Extremity: No clubbing, No cyanosis and No edema Neuro: Difficult to assess given mental status and lack of cooperation Psych: Difficult to assess given mental status Data 03/01/25 02:00 03/01/25 02:00 A&P Assessment and plan (1) Cardiogenic shock: (2) Nonischemic cardiomyopathy: (3) Atrial fibrillation with rapid ventricular response: (4) Congestive heart failure due to cardiomyopathy: (5) Elevated troponin: (6) Pancytopenia: (7) Thrombocytopenia: (8) ESRD (end stage renal disease) on dialysis: (9) HIV (human immunodeficiency virus infection): (10) Positive RPR test: (11) COPD (chronic obstructive pulmonary disease): (12) Sleep apnea: (13) Noncompliance: Plan (1) Cardiogenic shock: (2) Nonischemic cardiomyopathy: (3) Atrial fibrillation with rapid ventricular response: (4) Congestive heart failure due to cardiomyopathy: (5) Elevated troponin: (6) Pancytopenia: (7) Thrombocytopenia: (8) ESRD (end stage renal disease) on dialysis: (9) HIV (human immunodeficiency virus infection): (10) Positive RPR test: (11) COPD (chronic obstructive pulmonary disease): (12) Sleep apnea: (13) Noncompliance: Plan 39-year-old gentleman past medical history of end-stage renal disease on hemodialysis Friday, Friday, Friday, congestive systolic heart failure, HIV not currently on treatment presents to the ER with difficulty in breathing and palpitations along with some chest pain. Cardiogenic shock: Peripheries cold. Manual blood pressure of high 80s to low 90s. High concerns for slow flow cardiogenic shock. Appreciate elevated lactate. Will repeat in AM. Maintain mean artery pressure over 65. Shock most likely cardiogenic less likely septic. Blood culture neg x 3days, urinalysis is not available. Patient states he does not make urine. Appreciate CT chest abdomen pelvis. Appreciate procalcitonin trend. MRSA swab negative. Respiratory viral panel was negative. Given patient being immunocompromised for nontreated HIV for now continue with IV Zosyn. Discontinued vancomycin as MRSA swab negative. Start on IV albumin every 8 hourly Maintain and titrate Levophed keeping mean artery pressure 65. Maintain dobutamine at 5. Patient does have significant ascites. Will request for paracentesis for possible SBP. Acute decompensated chronic systolic heart failure: Last known EF from 2022 of 30% with grade 2 diastolic dysfunction, moderately dilated RV. Strict and proper charting, daily weights. It seems patient has not taken any of his home HIV and cardiac medications for a while. End-stage renal disease: Patient on hemodialysis for end-stage renal disease. Anuric at baseline. Patient will benefit with dialysis if hemodynamically tolerated. Will consult nephrology for possible dialysis today. A-fib with RVR: Seems patient takes Cardizem and metoprolol at home. Off amiodarone drip on 02/28/2025. Transitioned to po in the AM of 03/01 by Cards Holding off on heparin drip given multiple site of blood oozing. Will hold on AC given thrombocytopenia Will consult cardiology for further recommendations on possible cardioversion. Shortness of breath: Most likely in setting of congestive heart failure. Given pancytopenia with not being on treatment for HIV cannot rule out infectious source. Appreciate LDH. High concerns for uncontrolled HIV though CD4 count is not currently available. F/u PJP PCR, Fungitel. Antibiotic as above. Elevated troponin: Non-ST elevation DC versus demand ischemia. Check echocardiogram once HR less than 100. Heparin drip as above. Appreciate A1c, lipid panel Aspirin 81 mg daily, statin. HIV: As per patient not on treatment for more than 6 months. Check HIV RNA. CD4 count. Suppose to be on Biktarvy. Will restart once available pharmacy History of RPR positive. F/u hepatitis panel, RPR/FTA-ABS, Quantiferon gold, qvvi-m-uvizzn, PJP PCR, Tick panel labs - Yotmlduobtm-Ezrizmwdbgtbo-Gutdohizg Alafenamide (Biktarvy) reordered for resumption on 03/01/2025. Pancytopenia/thrombocytopenia: Monitor for neutropenia. Could be in setting of active HIV. Patient does have chronic thrombocytopenia but worsening currently. Leukopenia is new. Check for tick panel. DIC panel negative for DIC. Hold off on heparin drip as patient has occasional oozing. Can restart if hemoglobin remains stable. Aspirin held by Cardiology on 03/01/2025 given his thrombocytopenia and the concern that the benefit does not outweigh the risks at this time. Full code Renal dialysis diet Protonix for PUD prophylaxis Heparin be sufficient for DVT prophylaxis PDMP PDMP Reviewed: Not Reviewed Attestations 2 Medical Necessity Statement*: The patient needs to remain hospitalized for >2 midnights for his cardiogenic shock Critical Care Time: The high probability of a clinically significant, sudden or life threatening deterioration of the patient's [Cardiac, Pulmonary, Hematology, GI, Immunologic, & Renal] system(s) required my full and direct attention, intervention and personal management. The critical care time is as shown. This time is in addition to time spent performing any reported procedures but includes the following: [x] Data and vital sign review and interpretation [x] Patient assessment, examination and intervention [x] Documentation [x] Medication orders and management Critical Care Time (min): 50 Coding Level of Care Code Critical Care >/= 30 minutes Critical care time (in minutes): 45 The high probability of a clinically significant, sudden or life threatening deterioration, as referenced in this documentation, required my full and direct attention, intervention and personal management. The critical care time shown is in addition to time spent performing any reported separately billable procedures and includes the following: [x] Data and vital sign review and interpretation [x ] Patient assessment, examination and intervention [x] Medication orders and management [x] Patient/Family updates as able [x] Care Coordination and Documentation. Other Coding Information Focused coding review requested Diagnoses Cardiogenic shock R57.0 Nonischemic cardiomyopathy I42.8 Atrial fibrillation with rapid ventricular response I48.91 Congestive heart failure due to cardiomyopathy I50.9; I42.9 Elevated troponin R79.89 Pancytopenia D61.818 Thrombocytopenia D69.6 ESRD (end stage renal disease) on dialysis N18.6; Z99.2 HIV infection, unspecified symptom status Z21 HIV symptom status: unspecified Positive RPR test A53.0 Other emphysema J43.8 COPD type: emphysema Emphysema type: other Sleep apnea, unspecified type G47.30 Sleep apnea type: unspecified type Noncompliance Z91.199
[2025-03-01] MEDS: piperacillin-tazobactam 3.375 GM in sodium chloride 0.9% (plus) 50 ML IV ×2 (12:48→22:32)
[2025-03-01] MEDS: norepinephrine 4 MG/250 ML BAG 22.5 MG IV ×2 (12:49→23:13)
--- NOTE | 2025-03-01 12:59 | P.PN_ITS ---
<Statement entered by Elgin Lewis M.D - 03/02/25 10:00> Patient was cared for in conjunction with an advanced practice practitioner.? I reviewed the chart and all pertinent data including imaging, telemetry, and laboratory results.? I discussed the patient in detail with the advanced practice practitioner.? Please see?their note for progress note, testing results and agreed upon plan of care for the patient. Stop aspirin as platelet counts are low Subjective 2 Subjective: Patient is doing well today. Chest pain has resolved. Troponins were flat. At this time we are starting colchicine. Platelets are still low at 29. Creatinine elevated at 3.8. Patient is getting dialysis Friday. H&H low at 7 and 23.5 Vitals/I&O/Wt Last Vital Signs Temp 97.6 F 03/01/25 04:05 Pulse 87 03/01/25 07:41 Resp 18 03/01/25 08:52 BP 108/69 03/01/25 04:02 Pulse Ox 94 03/01/25 08:52 O2 Del Method Room Air 03/01/25 07:41 O2 Flow Rate 4 03/01/25 04:02 02/28/25 03/01/25 03/01/25 22:59 06:59 14:59 Intake Total 900 / 1460.002 650 / 2110.002 302.596 / 302.596 Output Total 1999 Balance -1100 / -539.998 650 / 110.002 302.596 / 302.596 Weight last 48 hrs Weight 137 lb 12.623 oz Weight 138 lb 14.259 oz Weight 137 lb 12.623 oz Weight 137 lb 12.623 oz Weight 137 lb 12.623 oz Physical Exam 2 Narrative: General: No apparent distress, healthy appearing, well nourished HENMT: normoceophalic Muskuloskeletal: Full ROM Respiratory: Normal respiratory effort, clear to auscultation bilaterally throughout all lung du, no use of accessory muscles Cardio: No JVD, regular rate, regular rhythm, S1 S2 normal, no murmurs, peripheral pulses 2+ radial palpated bilaterally GI: slightly distended Extremities: Full ROM, normal, normal capillary refill, no cyanosis or edema Neuro: Alert and oriented x4, no focal motor deficits Psych: Affect normal Skin: No rashes or lesions noted, no wounds Data 03/01/25 02:00 03/01/25 02:00 A&P Assessment and plan (1) Cardiogenic shock: (2) Nonischemic cardiomyopathy: (3) Atrial fibrillation with rapid ventricular response: (4) Congestive heart failure due to cardiomyopathy: (5) Elevated troponin: (6) Pancytopenia: (7) Thrombocytopenia: (8) ESRD (end stage renal disease) on dialysis: (9) HIV (human immunodeficiency virus infection): (10) COPD (chronic obstructive pulmonary disease): (11) Sleep apnea: (12) Noncompliance: Plan At this time patient is doing better as far as the chest pain goes. Clinically he looks euvolemic. He is still requiring Levophed. He has been transition to amiodarone 400 twice daily. Heart rates are well-controlled. I have he put the aspirin on hold due to patient's low platelet count and at this time patient benefit does not outweigh the risk of bleeding due to low platelet count and anemia. He is still on dobutamine at 5. At this point recommend continuing current care. PDMP PDMP Reviewed: Not Reviewed Attestations 2 Medical Necessity Statement*: Deferred to primary Coding Level of Care Code Acute Code for [facility] Fwd Diagnoses Cardiogenic shock R57.0 Nonischemic cardiomyopathy I42.8 Atrial fibrillation with rapid ventricular response I48.91 Congestive heart failure due to cardiomyopathy I50.9; I42.9 Elevated troponin R79.89 Pancytopenia D61.818 Thrombocytopenia D69.6 ESRD (end stage renal disease) on dialysis N18.6; Z99.2 HIV infection, unspecified symptom status Z21 HIV symptom status: unspecified Other emphysema J43.8 Emphysema type: other COPD type: emphysema Sleep apnea, unspecified type G47.30 Sleep apnea type: unspecified type Noncompliance Z91.199
--- NOTE | 2025-03-01 13:18 | P.PN_ITS ---
Subjective 2 Subjective: Patient has no complaints on 3.5 L o2. He is levophed 6 mcg/min and dobutamine 5 mcg/kg/min. Vitals/I&O/Wt Last Vital Signs Temp 97.6 F 03/01/25 04:05 Pulse 87 03/01/25 07:41 Resp 18 03/01/25 08:52 BP 108/69 03/01/25 04:02 Pulse Ox 94 03/01/25 08:52 O2 Del Method Room Air 03/01/25 07:41 O2 Flow Rate 4 03/01/25 04:02 02/28/25 03/01/25 03/01/25 22:59 06:59 14:59 Intake Total 900 / 1460.002 650 / 2110.002 302.596 / 302.596 Output Total 1999 Balance -1100 / -539.998 650 / 110.002 302.596 / 302.596 Weight last 48 hrs Weight 62.5 kg Weight 63 kg Weight 62.5 kg Weight 62.5 kg Weight 62.5 kg Physical Exam 2 Narrative: GEN: nad alert, conversant HEAD: normocephalic, atraumatic EYES: eomi, anicteric sclera HEENT: mmm NECK: no jvd CV: rrr LUNGS: diminished BS bilaterally ABD: soft, nt, nd EXT: no LE edema NEURO: grossly normal SKIN: no rash Data 03/01/25 02:00 03/01/25 02:00 A&P Assessment and plan (1) ESRD (end stage renal disease) on dialysis: (2) Congestive heart disease: Plan 1. End-stage renal disease He is on maintenance HD on a MWF schedule, but had hd on 02/27 and 02/28. I will plan on hd tomorrow 2. Acute respiratory failure- with pulmonary edema, HD as above 3. A-fib with RVR- his hr is controlled 4. History of HIV 5. Pancytopenia- likely due to HIV 6. Anemia in ckd- YAZMIN with HD PDMP PDMP Reviewed: Not Reviewed Attestations 2 Medical Necessity Statement*: esrd Time Spent in Patient Care: 25 minutes Coding Level of Care Code Acute Code for [facility] Fwd Diagnoses ESRD (end stage renal disease) on dialysis N18.6; Z99.2 Acute on chronic systolic congestive heart failure I50.23 Heart failure type: systolic Heart failure chronicity: acute on chronic
--- NOTE | 2025-03-01 13:46 | PC.NURSE ---
Dr. Rodriguez ordered to not give the platelets today since there is no doctor to perform the procedure.
[2025-03-01 16:26] LABS: HIV RNA LOG 50100 copies/mL (NOT DETECTED)
[2025-03-01] MEDS: ondansetron 2 mg/ML SDV 2 mL 4 MG IVP (18:00)
[2025-03-01] MEDS: diphenhydrAMINE 50 mg/mL SDV 1mL 25 MG IVP ×2 (18:03→22:19)
--- NOTE | 2025-03-01 18:26 | PM.CONSULT ---
Providers/Reason For Consult Consulting Physician/Specialty*: Val Palmer MD / Infectious disease Reason for Consult*: HIV care Requesting Physician: Luis Beatty MD Attending Physician: Ivis Luciano MD Primary Care Provider: Rebecca Montiel MD History of Present Illness History of Present Illness Vivek Harden is a 39 year old male diagnosed with HIV in 2011 after presenting to a hospital in [place] for testicular cancer. He underwent a unilateral orchiectomy and underwent chemoradiation as well. As part of the preop work-up HIV was diagnosed. Reportedly he developed CKD and started HD after chrmotherapy side effects. He was previously was followed by the infectious disease service at [facility] and then transitioned care here in 2020. He was maintained on Biktarvy with last viral load from 2022 being undetectable and Cd4 count of 196. Unfortunately he has been lost to follow up since 2022. States that he has been out of his medication since At least early 2023 and has not taken any medications. Patient states that he has not had any refills in the past year and this is why he is not on any meds. However, he is not very forthcoming with events since he was last seen in clinic. Case management notes reviewed - notes that patient's reported that patient is non compliant with his mediications by choice- that he does have medication at home but has chosen not to take it. He is currently admitted to the hospital since February 26 after presenting with Shortness of breath after HD. He was noted to be in A fib with RVR, hypotensive, has a known diagnosis of systolic CHF with EF 35% with a presumptive diagnosis of cardiogenic shock. He has needed to be on pressor support in the ICU. HE was noted to be leukopenic and have thrombocytopenia. After discussion with hospitalist on admission, Cd4 count and HIV VL were requested. CT of the chest had shown patchy GGOS and with his leukoepnia, PJP PCR was requested to r/o PJP, though clinically findings appeared more likely to be CHF. ID service consulted for recommendations with regards to HIV management. Review of Systems General: Reports: 10 or more systems reviewed and unremarkable except in HPI and below Const: Denies: fever(s), chills or body aches Eyes: Denies: change in vision, blurry vision or photophobia ENMT: Reports: hoarseness; Denies: throat pain, enlarged tonsils, odynophagia or nasal congestion Card: Denies: chest pain, palpitations, irregular heart rhythm, edema, swelling of feet/ankles, lightheadedness, pre-syncope, dyspnea on exertion or orthopnea Resp: Denies: dyspnea, productive cough, non-productive cough, wheezing, stridor, pain on inspiration, change in phlegm color, hemoptysis or chest congestion GI: Denies: abdominal pain, nausea, vomiting, hematemesis, coffee ground emesis, dysphagia, heartburn, diarrhea, constipation, GI cramping, change in stool character, hematochezia or melena : Denies: flank pain, dysuria, urinary frequency, urinary urgency, urinary hesitancy or hematuria Musc: Denies: neck pain, back pain, extremity pain, joint swelling, joint warmth or deformity Neuro: Denies: headache(s), numbness in extremities, weakness in extremities, sensory changes, difficulty walking, frequent falls, dizziness, vertigo, behavioral changes, Slurred speech present or seizure-like activity Psych: Denies: anxiety, depression, suicidal ideation or homicidal ideation Endo: Denies: polyuria, polydipsia, tired all the time, cold intolerance or hot flashes Wilver/Lymph: Denies: easy bruising or easy bleeding Medications/Allergies Home Medications ?Medication ?Instructions ?Recorded ?Confirmed ?Last Taken ?Type metoprolol succinate 100 mg 100 mg PO BID #60 tabs 06/11/23 02/27/25 Unknown Rx tablet,extended release 24 hr albuterol sulfate 2.5 mg/3 mL 2.5 mg (3 mL) inhalation QID PRN 02/17/25 02/27/25 Unknown Rx (0.083 %) solution for nebulization wheezing #90 mL amoxicillin 875 mg-potassium 1 tab PO BID #7 tabs 02/17/25 02/27/25 Unknown Rx clavulanate 125 mg tablet bictegravir 50 mg-emtricitabine 1 tab PO DAILY 30 days #30 tabs 02/27/25 Unknown Rx 200 mg-tenofovir alafenam 25 mg tablet (Biktarvy) prednisone 20 mg tablet 40 mg PO DAILY 02/27/25 02/27/25 Unknown History Allergies Allergy/AdvReac Type Severity Reaction Status Date / Time acetaminophen Allergy Severe ALGY-Hives Verified 02/17/25 13:44 Iodinated Contrast Media Allergy Unknown Verified 02/17/25 13:44 Current Medications Generic Name Dose Route Start Last Admin Trade Name Joseq PRN Reason Stop Dose Admin Amiodarone HCl 400 mg 02/28/25 12:45 03/01/25 17:50 Amiodarone 200 Mg Tablet PO 400 mg BID MIGUEL Administration Aspirin 81 mg 02/28/25 09:00 02/28/25 08:30 Aspirin 81 Mg Ec Tablet PO 81 mg On Hold: 03/01/25 08:34 DAILY MIGUEL Administration Colchicine 0.3 mg 03/01/25 09:00 03/01/25 08:51 Colchicine 0.6 Mg Tablet PO 0.3 mg TuTh MIGUEL Administration Diphenhydramine HCl 25 mg 02/27/25 21:15 03/01/25 18:03 Diphenhydramine 50 Mg/Ml Sdv 1ml IVP 25 mg Q4H PRN Administration ITCHING Docusate Sodium 100 mg 02/26/25 22:28 03/01/25 17:50 Docusate Sodium 100 Mg Capsule PO 100 mg BID MIGUEL Administration Norepinephrine Bitartrate 4 mg in 250 mls @ 0 mls/hr 02/26/25 19:30 03/01/25 12:49 Levophed IV 6 mcg/min .Q0M MIGUEL 22.5 mls/hr Protocol Administration Per Protocol Piperacillin Sod/Tazobactam 50 mls @ 12.5 mls/hr 02/27/25 11:00 03/01/25 17:00 Sod 3.375 gm/ Sodium Chloride IV Infused Q12H MIGUEL Infusion Albumin Human 25 g in 100 mls @ 60 mls/hr 02/27/25 11:00 03/01/25 20:34 Albumin IV 60 mls/hr Q8H MIGUEL Administration Dobutamine HCl/Dextrose 500 mg in 250 mls @ 0 mls/hr 02/27/25 18:30 03/01/25 09:11 Dobutamine Drip IV 5 mcg/kg/min .Q0M MIGUEL 9.38 mls/hr Protocol Titration Per Protocol Morphine Sulfate 2 mg 02/26/25 22:28 03/01/25 18:01 Morphine 4 Mg/Ml Sdv 1 Ml IVP 2 mg Q4H PRN Administration SEVERE PAIN Ondansetron HCl 4 mg 02/26/25 22:28 03/01/25 18:00 Ondansetron 2 Mg/Ml Sdv 2 Ml IVP 4 mg Q6H PRN Administration vomiting, or N/V if npo Pantoprazole Sodium 40 mg 02/26/25 20:00 03/01/25 20:35 Pantoprazole 40 Mg Sdv IVP 40 mg Q24H MIGUEL Administration PFSH Acute PFSH: Medical History Noncompliance Tricuspid regurgitation Atrial fibrillation Nonischemic cardiomyopathy Deep vein thrombosis of left lower extremity Cardiac arrest Hemoptysis Sleep apnea Hyperkalemia Anemia in chronic kidney disease ESRD (end stage renal disease) on dialysis AV fistula HIV carrier History of testicular cancer Treated with orchiectomy, chemotherapy, and retroperitoneal lymph node dissection Surgical History History of inferior vena caval filter placement History of abdominal surgery (05/2009) Retroperitoneal lymph node dissection History of orchiectomy, unilateral (09/2008) Right unilateral orchiectomy with right inguinal lymph node biopsy S/P hemodialysis catheter insertion (11/30/20) R IJ catheter exchange History of removal of Port-a-Cath Family History Mother Stroke Denies family history of Anesthesia complication Bleeding disorder Social History Smoking and tobacco/nicotine status: former use of tobacco/nicotine Quit status (tobacco/nicotine): has quit using Year quit tobacco: 6 + years Former quit date comment: Smoker for 20+ years Alcohol intake: never Substance/Drug Use: current Adopted: No Caregiver/support person: Yes Lives independently: Yes Housing: House Current occupational status: disabled Pets and animals: No Sexually active: Yes Do you think of yourself as: Straight/Heterosexual Current gender identity: Male Josefa/Sabianism: Presybeterian Vitals/I&O/Wt Last Vital Signs Temp 97.4 F L 03/01/25 20:30 Pulse 74 03/01/25 20:30 Resp 10 L 03/01/25 20:30 BP 101/73 03/01/25 20:30 Pulse Ox 94 03/01/25 18:01 O2 Del Method Nasal Cannula 03/01/25 13:00 O2 Flow Rate 3 03/01/25 13:00 03/01/25 03/01/25 03/01/25 06:59 14:59 22:59 Intake Total 650 / 2110.002 302.596 / 302.596 150 / 452.596 Balance 650 / 110.002 302.596 / 302.596 150 / 452.596 Weight last 48 hrs Weight 62.5 kg Weight 63 kg Weight 62.5 kg Weight 62.5 kg Physical Exam Narrative: General: No acute distress, AO x3, chronically ill appearing HEENT: PERRLA, pupils bilaterally equal and reactive, pallors not present Chest: Normal vesicular breath sounds, no added sounds, equal good air entry bilaterally CVS: S1-S2 regular, no murmurs, no tachycardia, no gallops, no rubs Abdomen: Soft, distended, non tender Neuro: No focal deficits, no facial deformity, AO x3, power 5/5 in all limbs Data 03/02/25 21:57 03/03/25 09:10 Other data: CT/CT chest abdpel w/*[id number] IMPRESSION: 1. Patchy bilateral ground-glass airspace opacities suggestive of alveolar edema. 2. Cardiomegaly. 3. Azygos vein is somewhat dilated, findings discontinuation of the inferior vena cava distal to the inferior vena cava filter. 4. Anasarca. IMPRESSION: 1. Negative for focal acute inflammatory process in abdomen or pelvis. 2. Large amount of ascites in the abdomen. 3. Reflux of contrast into the intrahepatic veins and inferior vena cava suggestive of congestive heart failure. 4. Bilateral renal cysts, negative for follow-up advised. 5. Chronic atrophy of the kidneys bilaterally. 6. Bilateral nonobstructing renal calyceal stones. 7. Inferior vena cava filter seen. The inferior vena cava is not visualized distal to the inferior vena cava suggestive of absence or chronic occlusion. A&P Assessment and plan (1) HIV (human immunodeficiency virus infection): Pateint with known HIV infection, has not been compliant with medications since at least one year VL and CD4 count pending , anticipate both being elevated given non compliance requested HIV genotype Restart Biktarvy 1 tab po daily while in the hospital- new prescriptions have been sent to patient's pharmacy further recommendations based on cd4 count and VL testing requested sputum PJP PCR anticipate GGOs to be pulm edema however with leukopenia, anticipated low cd4 count, will need to evalute for PJP. he was previously on dapsone for ppx but has not taken it recently. (2) Pancytopenia: suspect may be related to HIV/AIDS check tick panel other evaluation per primary team (3) Cardiogenic shock: (4) Anasarca: likey related to renal vs cardiogenic cause PDMP PDMP Reviewed: Not Reviewed Coding Level of Care Code Acute Code for Chg Fwd High MDM includes number and complexity of problems actively addressed during encounter, amount and/or complexity of data reviewed/ordered and described risk of complication, morbidity or mortality of management as documented Diagnoses HIV infection, unspecified symptom status Z21 HIV symptom status: unspecified Pancytopenia D61.818 Cardiogenic shock R57.0 Anasarca R60.1
[2025-03-01] MEDS: pantoprazole 40 mg SDV IVP (20:35)
[2025-03-02] VITALS (149 sets, daily range): BP systolic 75–121; BP diastolic 53–99; PULSE 63–94; RESP 8–50; TEMP 36.2–36.8; O2SAT 89–100; BMI 22.6
[2025-03-02] MEDS: albumin 25 G/100 ML BAG 60 G IV ×3 (02:15→20:22)
[2025-03-02] MEDS: morphine 4 mg/mL SDV 1 mL 2 MG IVP ×3 (03:09→20:20)
[2025-03-02] MEDS: DOBUTamine drip 500 MG/250 ML PREMIX 9.38 MG IV (03:21)
[2025-03-02 05:09] LABS: Basophils % 0.3 %; Eosinophils % 0.8 %; Hematocrit 23.3 % (37-53); Lymphocytes # 0.1 10^3/uL (0.8-4.8); Lymphocytes % 3.6 %; Mean Corpuscular HGB Conc 29.6 g/dL (30-55); Mean Corpuscular Hemoglobin 29.7 pg (27-33); Mean Corpuscular Volume 100.4 fl (82-101); Monocytes # 0.1 10^3/uL (0.2-0.9); Monocytes % 2.8 %; Neutrophils # 3.29 10^3/uL (1.8-7.7); Neutrophils % 91.7 %; Nucleated Red Blood Cells % 0.6 %; Red Blood Count 2.32 10^6/uL (3.85-5.65); Red Cell Distribution Width 18.9 % (12.1-15.1); White Blood Count 3.59 10^3/uL (3.29-11.43)
[2025-03-02 05:29] LABS: Platelet Count 24 10^3/cmm (157-399)
--- NOTE | 2025-03-02 05:37 | PC.NURSE ---
Provider notified of critical platelet. Plans to transfuse this morning were discussed with Dr. Baeza with oncoming dayshift nurse prior to shift change last evening.
[2025-03-02 05:41] LABS: Alanine Aminotransferase 7 U/L (0-41); Albumin Level 4.3 g/dL (3.5-5.2); Alkaline Phosphatase 89 U/L (40-130); Anion Gap 20.9 (5-19); Aspartate Amino Transferase 18 U/L (0-40); Blood Urea Nitrogen 40 mg/dL (6-20); Carbon Dioxide 26 mmol/L (22-29); Chloride 95 mmol/L (98-107); Creatinine Clr Calc Pharmacy 19.5154; Globulin 4.1 g/dL (1.3-4.6); Glomerular Filtration Rate 16.8 mL/min (90-130); Glucose 74 mg/dL (65-115); Osmolality Calculated 294 mOsm/kg (285-295); Potassium 3.9 mmol/L (3.5-5.1); Sodium 138 mmol/L (136-145); Total Bilirubin 1.1 mg/dL (0.15-1.2); Total Protein 8.4 g/dL (6.6-8.7)
--- NOTE | 2025-03-02 05:49 | PC.NURSE ---
Verbal orders from Dr. Baeza to order 1 unit of PRBC if patients morning HGB was less than 7. Order placed. See NOV.
--- NOTE | 2025-03-02 06:43 | PM.PN ---
Subjective Subjective: no new c/o remains on levophed Medications: Reviewed: Yes Vitals/I&O/Wt Last Vital Signs Temp 97.6 F 03/02/25 04:14 Pulse 80 03/02/25 04:14 Resp 18 03/02/25 04:14 BP 96/73 03/02/25 04:14 Pulse Ox 100 03/02/25 04:14 O2 Del Method Nasal Cannula 03/01/25 23:29 O2 Flow Rate 4 03/01/25 23:29 03/01/25 03/01/25 03/02/25 14:59 22:59 06:59 Intake Total 302.596 / 302.596 250 / 552.596 587.154 / 1139.750 Balance 302.596 / 302.596 250 / 552.596 587.154 / 1139.750 Weight last 48 hrs Weight 62.5 kg Weight 63 kg Physical Exam Narrative: GEN: nad alert, conversant HEAD: normocephalic, atraumatic EYES: eomi, anicteric sclera HEENT: mmm NECK: no jvd CV: rrr LUNGS: diminished BS bilaterally ABD: soft, nt, nd EXT: no LE edema NEURO: grossly normal SKIN: no rash Data 03/02/25 04:20 03/02/25 04:20 Micro: Microbiology 03/02/25 04:20 Cryptococcal Antigen (Serum) - Final Blood A&P Assessment and plan (1) ESRD (end stage renal disease) on dialysis: Plan 1. End-stage renal disease He is on maintenance HD on a MWF schedule, but had hd on 02/27 and 02/28. I will plan on hd today 2. Acute respiratory failure- with pulmonary edema, HD as above 3. A-fib with RVR- his hr is controlled 4. History of HIV 5. Pancytopenia- likely due to HIV 6. Anemia in ckd- YAZMIN with HD 7. Thambocytopenia , avoid heparin with hD 8. Hypotension , on levophed , added Midodrine and IV albumin PDMP PDMP Reviewed: Not Reviewed Attestations Medical Necessity Statement*: per sherriny Coding Level of Care Code Acute Code for Chg Fwd Diagnoses ESRD (end stage renal disease) on dialysis N18.6; Z99.2
--- NOTE | 2025-03-02 08:04 | US_ITS ---
WS: [id number] ULTRASOUND-GUIDED THERAPEUTIC AND DIAGNOSTIC PARACENTESIS Procedure, risks, and complications have been explained to the patient. Consent is obtained. Utilizing aseptic technique and 1% buffered lidocaine, a small dermatome was made through which a 5 Sudanese Yueh catheter was inserted. Approximately 5000 ml of clear peritoneal fluid was obtained without difficulty. No complications encountered. US/US paracentesis abd w [id number] IMPRESSION: Uncomplicated paracentesis yielding 5000 ml of peritoneal fluid.
[2025-03-02 08:08] LABS: Lyme AB Screen <0.90 index
--- NOTE | 2025-03-02 08:35 | PM.PN ---
Subjective Subjective: Patient started on Colchicine on 03/01/2025 due to concerns for a pericardial rub appreciated. Patient is self-pay, so the infectious disease specialist, Dr. Palmer was contacted about the patient's inability to get the HIV medications. Per my discussion with her, she is actively working to arrange for the patient to get his HIV medication. He weaned from 4L to 1L NC at this morning. He is normally not on NC at home. Hgb of 6.9. Platelet of 24. He is awake in his room. States that he did not sleep well. He denies f/c, abd pain, n/v, SOB, palpitations, dizziness, light headedness. He is getting 1unit prbc w/ HD today. He has also being transfused platelets, and repeat platelets was 48. According to the nurse, the radiologist would like the patient to transfuse platelets while he is getting a paracentesis, so the other unit was transfused while the paracentesis occurred. A total of 5.8 L of ascitic pleural fluid were removed. Postprocedure, patient has been given albumin and 500 cc NS bolus. He has episodes of hypotension. I was called by the nurse later in the day that he had developed a long pause. The cardiology service was notified, and his amiodarone was switched from 400 mg p.o. twice daily to 200 mg p.o. twice daily. To his end of the day shift, there was concern that the patient had petechiae at the feet, and dayshift nurses had difficulty palpating the patient's pulses, so an arterial ultrasound was ordered. Vitals/I&O/Wt Last Vital Signs Temp 97.6 F 03/02/25 07:40 Pulse 88 03/02/25 08:15 Resp 16 03/02/25 08:15 BP 112/79 03/02/25 07:40 Pulse Ox 97 03/02/25 08:15 O2 Del Method Nasal Cannula 03/02/25 07:15 O2 Flow Rate 3.5 03/02/25 07:15 FiO2 3 03/02/25 08:15 03/01/25 03/02/25 03/02/25 22:59 06:59 14:59 Intake Total 250 / 552.596 587.154 / 1139.750 207 / 207 Balance 250 / 552.596 587.154 / 1139.750 207 / 207 Weight last 48 hrs Weight 67.6 kg Weight 62.5 kg Weight 63 kg Physical Exam Narrative: Constitutional: GENERAL APPEARANCE: cooperative, comfortable and appears older than stated age; not combative, not disheveled, not ill appearing and not frail appearing HENT: HEAD & SCALP: normocephalic and atraumatic; NOSE: external nose not normal EXTERNAL EAR: no external ears normal MOUTH: Normal oral and palatal mucosa present THROAT: posterior oropharynx normal Eye: PERRL, EOMI, normal conjunctiva b/l Neck: normal visual inspection, trachea midline, No anterior neck swelling, No tracheal deviation, No tracheostomy present, no submandibular swelling, Thyroid normal , cervical ROM normal Lymph: no cervical, supraclavicular LAD Resp: no use of accessory muscles; absent breath sounds in the R. mid to lower lung du. Crackles in the L. lower lung du. Cardio: RRR. e has 2/6 murmur in the LLSB and apex and an S4. 2+ radial and DP pulses. GI: normoactive bowel sounds, distended abdomen, but no guarding, no rigidity, no rebound tenderness, no tenderness to palpation, no hepatosplenomegaly. : Deferred Back/Pelvis: Deferred Extremity: No clubbing, No cyanosis and No edema Neuro: Difficult to assess given mental status and lack of cooperation Psych: Difficult to assess given mental status Data 03/02/25 21:57 03/02/25 04:20 Micro: Microbiology 03/02/25 04:20 Cryptococcal Antigen (Serum) - Final Blood A&P Assessment and plan (1) Cardiogenic shock: (2) Nonischemic cardiomyopathy: (3) Atrial fibrillation with rapid ventricular response: (4) Congestive heart failure due to cardiomyopathy: (5) Elevated troponin: (6) Pancytopenia: (7) Thrombocytopenia: (8) ESRD (end stage renal disease) on dialysis: (9) HIV (human immunodeficiency virus infection): (10) Positive RPR test: (11) COPD (chronic obstructive pulmonary disease): (12) Sleep apnea: (13) Noncompliance: Plan (1) Cardiogenic shock: (2) Nonischemic cardiomyopathy: (3) Atrial fibrillation with rapid ventricular response: (4) Congestive heart failure due to cardiomyopathy: (5) Elevated troponin: (6) Pancytopenia: (7) Thrombocytopenia: (8) ESRD (end stage renal disease) on dialysis: (9) HIV (human immunodeficiency virus infection): (10) Positive RPR test: (11) COPD (chronic obstructive pulmonary disease): (12) Sleep apnea: (13) Noncompliance: 14 acute hypoxic respiratory failure. Plan Mr. Harden is a 39yo man w/ chronic HFrEF, non-ischemic cardiomyopathy, ESRD on MWF, hx of testicular cancer between 4825-1510 at [facility] w/ no evidence of disease, Afib, LOY, hx of L. LE DVT in approx 2009 s/p IVC filter and another DVT09/2022, and year-old gentleman past medical history of end-stage renal disease on hemodialysis Friday, Friday, Friday, congestive systolic heart failure, HIV not currently on treatment who presented to the ED on 02/26/2025 with difficulty in breathing and palpitations along with some chest pain. EMS noted him to be in Afib w/ RVR. He was admitted to the ICU in Cardiogenic shock, acute on chronic HFrEF, Afib w/ RVR, and Pancytopenia. On admission, he admitted to not having taken his HIV medications for >6 months and not following up with his Physicians in >1yr. Given his dyspnea, he was started on empiric Vanc/Zosyn. He had a hx of being RVR positive, so syphilis work up (FTA-ABS, RPR) , CD4 count, his viral load, were ordered. His viral load is 50,000, and his CD4 count is still pending. Given that he also presented w/ dyspnea and his CD4 was 165 back in 09/2022 and he had been noncompliant, BCx, sputum culture, quantiferon TB test, PJP PCR test, respiratory pathogen panel, and beta D glucan test were all ordered. Nephrology was consulted on admission, who immediately initiated HD. He was started on Levophed, Dobutamine, and Amiodarone drip on admission, and an ECHO was ordered. The ECHO on 02/27 showed an EF of 32% w/ global hypokinesis, RV pressure overload, mod to severe tricuspid valve regurg, and mild aortic stenosis. The Retail Marketing Executive was consulted and the patient converted to NSR and transitioned to oral Amiodarone on 03/01/2025. The patient also was not a candidate for anticoagulation given his thrombocytopenia. The Retail Marketing Executive was concerned for potential friction rub noted, so the patient was started on colchicine on 03/01/2025. The patient developed a prolonged pause on 04/01/2025, so the timber treating tank operator service decreased amiodarone from 400 mg twice daily to 200 mg twice daily. Despite dialysis, patient had an abdominal ascites. He was transfused 2 jumbo pack platelets, and underwent paracentesis on 03/02/2025 by the Radiologist. A total of 5.8L of ascitic fluid was removed. Cardiogenic shock: Peripheries cold. Manual blood pressure of high 80s to low 90s. High concerns for slow flow cardiogenic shock. Appreciate elevated lactate. Will repeat in AM. Maintain mean artery pressure over 65. Shock most likely cardiogenic less likely septic. Blood culture neg , urinalysis is not available. Patient states he does not make urine. Appreciate CT chest abdomen pelvis. Appreciate procalcitonin trend. MRSA swab negative. Respiratory viral panel was negative. Given patient being immunocompromised for nontreated HIV for now continue with IV Zosyn. Discontinued vancomycin as MRSA swab negative. Start on IV albumin every 8 hourly Maintain and titrate Levophed keeping mean artery pressure 65. Per Retail Marketing Executive, d/c Dobutamine and use Levophed as needed. -S/p paracentesis on 03/02/2025 with 5.8 L of ascitic fluid removed. - F/u b/l LE arterial US. Acute decompensated chronic systolic heart failure: Last known EF from 2022 of 30% with grade 2 diastolic dysfunction, moderately dilated RV. Strict and proper charting, daily weights. It seems patient has not taken any of his home HIV and cardiac medications for a while. End-stage renal disease: Patient on hemodialysis for end-stage renal disease. Anuric at baseline. Patient will benefit with dialysis if hemodynamically tolerated. Will consult nephrology for possible dialysis today. A-fib with RVR: Seems patient takes Cardizem and metoprolol at home. Off amiodarone drip on 02/28/2025. Transitioned to po in the AM of 03/01 by Cards. Per cardiology nurse practitioner, patient is also not a candidate for aspirin, because at this time, the benefits outweigh the risk. Holding off on heparin drip given multiple site of blood oozing. Will hold on AC given thrombocytopenia Shortness of breath: Most likely in setting of congestive heart failure. Given pancytopenia with not being on treatment for HIV cannot rule out infectious source. Appreciate LDH. High concerns for uncontrolled HIV though CD4 count is not currently available. F/u PJP PCR, Fungitel. Antibiotic as above. Elevated troponin: Non-ST elevation TX versus demand ischemia. Check echocardiogram once HR less than 100. Heparin drip as above. Appreciate A1c, lipid panel Aspirin 81 mg daily, statin. HIV: As per patient not on treatment for more than 6 months. Check HIV RNA. CD4 count. Suppose to be on Biktarvy. Will restart once available pharmacy History of RPR positive. F/u hepatitis panel, RPR/FTA-ABS, Quantiferon gold, gywq-[id number], PJP PCR, Tick panel labs - Dakdhszlyah-Oeypdtngjkezi-Zvdtvvbnt Alafenamide (Biktarvy) reordered for resumption on 03/01/2025, however patient unable to afford the medication because he is self-pay. Pancytopenia/thrombocytopenia: Monitor for neutropenia. Could be in setting of active HIV. Patient does have chronic thrombocytopenia but worsening currently. Leukopenia is new. Check for tick panel. DIC panel negative for DIC. Hold off on heparin drip as patient has occasional oozing. Can restart if hemoglobin remains stable. Aspirin held by Cardiology on 03/01/2025 given his thrombocytopenia and the concern that the benefit does not outweigh the risks at this time. Purpura at feet: Monitor Full code Renal dialysis diet Protonix for PUD prophylaxis Heparin be sufficient for DVT prophylaxis PDMP PDMP Reviewed: Not Reviewed Attestations Medical Necessity Statement*: The patient needs to be hospitalized for greater than 2 midnights because healing remains on norepinephrine for his cardiogenic shock. Critical Care Time: The high probability of a clinically significant, sudden or life threatening deterioration of the patient's [cardiac, pulmonary, gastrointestinal, infectious disease] system(s) required my full and direct attention, intervention and personal management. The critical care time is as shown. This time is in addition to time spent performing any reported procedures but includes the following: [x] Data and vital sign review and interpretation [x] Patient assessment, examination and intervention [x] Documentation [x] Medication orders and management Coding Level of Care Code Critical Care >/= 30 minutes Critical care time (in minutes): 70 The high probability of a clinically significant, sudden or life threatening deterioration, as referenced in this documentation, required my full and direct attention, intervention and personal management. The critical care time shown is in addition to time spent performing any reported separately billable procedures and includes the following: [x] Data and vital sign review and interpretation [x] Patient assessment, examination and intervention [x] Medication orders and management [x] Patient/Family updates as able [x] Care Coordination and Documentation. Other Coding Information Focused coding review requested Diagnoses Cardiogenic shock R57.0 Nonischemic cardiomyopathy I42.8 Atrial fibrillation with rapid ventricular response I48.91 Congestive heart failure due to cardiomyopathy I50.9; I42.9 Elevated troponin R79.89 Pancytopenia D61.818 Thrombocytopenia D69.6 ESRD (end stage renal disease) on dialysis N18.6; Z99.2 HIV infection, unspecified symptom status Z21 HIV symptom status: unspecified Positive RPR test A53.0 Other emphysema J43.8 COPD type: emphysema Emphysema type: other Sleep apnea, unspecified type G47.30 Sleep apnea type: unspecified type Noncompliance Z91.199
[2025-03-02] MEDS: docusate sodium 100 mg Capsule PO ×2 (08:50→17:12)
[2025-03-02] MEDS: norepinephrine 4 MG/250 ML BAG 22.5 MG IV ×2 (08:50→20:09)
[2025-03-02] MEDS: amiodarone 200 mg Tablet 400 MG PO (08:50)
[2025-03-02] MEDS: midodrine 5 mg TABLET 10 MG PO ×3 (08:50→20:22)
[2025-03-02] MEDS: diphenhydrAMINE 50 mg/mL SDV 1mL 25 MG IVP ×2 (09:00→20:20)
[2025-03-02 11:11] LABS: Platelet Count 48 10^3/cmm (157-399)
--- NOTE | 2025-03-02 11:29 | PC.NURSE ---
Monitor alarm showed the patient having a pause in his cardiac rhythm. Dialysis nurse was notified and they paused the treatment. Dr. Rodriguez was contacted and she stated that she was okay with the treatment being paused. Dialysis nurse contacted fire management officer.
[2025-03-02] MEDS: piperacillin-tazobactam 3.375 GM in sodium chloride 0.9% (plus) 50 ML IV ×2 (12:10→23:12)
[2025-03-02 12:54] LABS: Quantiferon Mitogen 0.14 IU/mL; Quantiferon Nil 0.01 IU/mL; Quantiferon TB Gold INDETERMINATE (NEGATIVE)
--- NOTE | 2025-03-02 13:10 | PC.NURSE ---
Biktarvy has not been given because patient's insurance is not covering cost. Hospital staff has been aware of issues and have been trying to get patient the medication.
--- NOTE | 2025-03-02 13:24 | PC.SOCIAL ---
IMM Updated Updated pt on IMM. No questions voiced. Provided pt a copy. Initialed, dated, & timed a copy & placed in chart.
--- NOTE | 2025-03-02 13:28 | PC.HD ---
With approximately 20 minutes of treatment left, monitor indicated pauses and runs of VT. Primary RN requested this RN stop treatment. Due to the urgency of the situation, this RN terminated treatment without contacting sorter packer first. After treatment ended, sorter packer was notified and was in agreement with the decision to emergently terminate treatment. Per primary RN, Kyle hospitalist also agreed with this plan of action. Patient remained asymptomatic throughout the episode and was stable when this RN left his room. UF goal was 2500 mL, 2252 mL removed.
--- NOTE | 2025-03-02 14:23 | P.PN_ITS ---
<Statement entered by Elgin Lewis M.D - 03/08/25 10:15> Patient was cared for in conjunction with an advanced practice practitioner.? I reviewed the chart and all pertinent data including imaging, telemetry, and laboratory results.? I discussed the patient in detail with the advanced practice practitioner.? Please see?their note for progress note, testing results and agreed upon plan of care for the patient. Subjective 2 Subjective: Patient doing well today. He still has chest pain on and off. He states if he gets his pain medication that it resolves. He did have some dialysis this morning but developed a pause with this. He was asymptomatic at the time. It was caught on the monitor. Currently he is getting amiodarone 400 twice daily. Vitals/I&O/Wt Last Vital Signs Temp 97.2 F L 03/02/25 13:26 Pulse 79 03/02/25 13:26 Resp 17 03/02/25 13:26 BP 105/70 03/02/25 13:26 Pulse Ox 96 03/02/25 12:15 O2 Del Method Room Air 03/02/25 12:15 O2 Flow Rate 3.5 03/02/25 07:15 FiO2 3 03/02/25 08:15 03/01/25 03/02/25 03/02/25 22:59 06:59 14:59 Intake Total 250 / 552.596 587.154 / 1139.750 723.375 / 723.375 Output Total 2552 / 2552 Balance 250 / 552.596 587.154 / 1139.750 -1828.625 / -1828.625 Weight last 48 hrs Weight 155 lb 6.814 oz Weight 149 lb 0.52 oz Weight 137 lb 12.623 oz Weight 138 lb 14.259 oz Physical Exam 2 Narrative: General: No apparent distress, healthy appearing, well nourished HENMT: normoceophalic Muskuloskeletal: Full ROM Respiratory: Normal respiratory effort, clear to auscultation bilaterally throughout all lung du, no use of accessory muscles Cardio: No JVD, regular rate, regular rhythm, S1 S2 normal, no murmurs, peripheral pulses 2+ radial palpated bilaterally GI: slightly distended Extremities: Full ROM, normal, normal capillary refill, no cyanosis or edema Neuro: Alert and oriented x4, no focal motor deficits Psych: Affect normal Skin: No rashes or lesions noted, no wounds Data 03/02/25 10:59 03/02/25 04:20 Micro: Microbiology 03/02/25 04:20 Cryptococcal Antigen (Serum) - Final Blood A&P Assessment and plan (1) Cardiogenic shock: (2) Nonischemic cardiomyopathy: (3) Atrial fibrillation with rapid ventricular response: (4) Congestive heart failure due to cardiomyopathy: (5) Elevated troponin: (6) Pancytopenia: (7) Thrombocytopenia: (8) ESRD (end stage renal disease) on dialysis: (9) HIV (human immunodeficiency virus infection): (10) COPD (chronic obstructive pulmonary disease): (11) Sleep apnea: (12) Noncompliance: Plan At this time due to the patient's transient pause will decrease amiodarone to 200 mg twice daily and continue to monitor for future events. Continue to hold metoprolol. Continue dobutamine drip and Levophed drip and wean as tolerated. Patient is also going for a paracentesis today. H&H is low as well as platelets and he will be getting transfused. PDMP PDMP Reviewed: Not Reviewed Attestations 2 Medical Necessity Statement*: Defer to primary Coding Level of Care Code [facility] Cardiogenic shock R57.0 Nonischemic cardiomyopathy I42.8 Atrial fibrillation with rapid ventricular response I48.91 Congestive heart failure due to cardiomyopathy I50.9; I42.9 Elevated troponin R79.89 Pancytopenia D61.818 Thrombocytopenia D69.6 ESRD (end stage renal disease) on dialysis N18.6; Z99.2 HIV infection, unspecified symptom status Z21 HIV symptom status: unspecified Other emphysema J43.8 COPD type: emphysema Emphysema type: other Sleep apnea, unspecified type G47.30 Sleep apnea type: unspecified type Noncompliance Z91.199
[2025-03-02 15:30] LABS: Apprearance, Body Fluid CLOUDY; Color, Body Fluid AMBER; Cyto Order Verification Order Verified; PATH Referral YES
[2025-03-02 15:31] LABS: Fluid Laterality ASCITES FLUID
[2025-03-02 15:34] LABS: Body Fluid WBC 205 /uL; Monocytes # Body Fluid 0.095
[2025-03-02 16:07] LABS: Body Fluid Specific Gravity 1.034
[2025-03-02 16:16] LABS: Albumin Body Fluid 2.7 g/dL; Cholesterol Body Fluid 42 mg/dL (0-200); Fluid Alkaline Phos. 46 IU/L; LDH Body Fluid 114 U/L; Total Protein Body Fluid 5.7 g/dL; Triglycerides Body Fluid 37 mg/dL (0-150); Uric Acid Body Fluid 3 mg/dL
--- NOTE | 2025-03-02 17:09 | USR_ITS ---
PROCEDURE INFORMATION: Exam: US Duplex Bilateral Lower Extremity Arteries Exam date and time: 03/02/2025 10:08 PM Age: 39 years old Clinical indication: Other: Diminished pedal pulses; Additional info: Pedal pulses very diminished TECHNIQUE: Imaging protocol: Real-time ultrasound scan of the arteries of the bilateral lower extremities with 2-D li scale, color Doppler flow and spectral waveform analysis. Images documented and saved. COMPARISON: No relevant prior studies available. FINDINGS: Right common femoral artery: No occlusion or significant stenosis. Normal waveform. Right superficial femoral artery: Diffuse calcific plaque. No occlusion or significant stenosis. Normal waveform. Right popliteal artery: No occlusion or significant stenosis. Normal waveform. Right calf/foot arteries: Diffuse calcific plaque. No occlusion or significant stenosis in the visualized arteries. Normal waveforms. Dorsalis pedis artery is patent. Left common femoral artery: No occlusion or significant stenosis. Normal waveform. Left superficial femoral artery: Diffuse calcific plaque. No occlusion or significant stenosis. Normal waveform. Left popliteal artery: No occlusion or significant stenosis. Normal waveform. Left calf/foot arteries: Diffuse calcific plaque. No occlusion or significant stenosis in the visualized arteries. Normal waveforms. Dorsalis pedis artery [place]. US/[place] [id number] IMPRESSION: 1. Patent bilateral lower extremity arterial systems. There is diffuse calcific atherosclerotic plaque which is most prominent in the femoral arteries bilaterally, but no focal stenosis. Normal multiphasic waveforms are demonstrated throughout. 2. Elevated JOHN is compatible with atherosclerosis.
[2025-03-02] MEDS: amiodarone 200 mg Tablet PO (17:12)
[2025-03-02] MEDS: BIKTARVY 1 EACH PO (17:12)
--- NOTE | 2025-03-02 19:13 | PC.NURSE ---
Patient put out 5800 mls of fluid from their paracenthesis. No complications from the procedure.
[2025-03-02] MEDS: pantoprazole 40 mg SDV IVP (20:22)
[2025-03-02 21:55] LABS: Fungitell 1-3-B Glucan Assay 190 pg/mL (<60); Interpretation Positive (Negative)
[2025-03-02 22:09] LABS: Hematocrit 26.7 % (37-53)
[2025-03-03] VITALS (97 sets, daily range): BP systolic 74–106; BP diastolic 49–81; PULSE 67–90; RESP 9–28; TEMP 36.3–36.7; O2SAT 88–100
[2025-03-03] MEDS: morphine 4 mg/mL SDV 1 mL 2 MG IVP ×5 (00:34→23:08)
[2025-03-03] MEDS: diphenhydrAMINE 50 mg/mL SDV 1mL 25 MG IVP ×3 (00:38→23:09)
[2025-03-03] MEDS: albumin 25 G/100 ML BAG 60 G IV ×3 (02:42→20:01)
[2025-03-03] MEDS: norepinephrine 4 MG/250 ML BAG 37.5 MG IV ×3 (04:43→18:15)
--- NOTE | 2025-03-03 06:24 | PM.PN ---
Subjective Subjective: on levophed @ 10 mcg Dobutamine gtt turned off Medications: Reviewed: Yes Vitals/I&O/Wt Last Vital Signs Temp 98.1 F 03/03/25 04:00 Pulse 72 03/03/25 06:00 Resp 21 H 03/03/25 05:00 BP 84/64 03/03/25 05:00 Pulse Ox 97 03/03/25 04:43 O2 Del Method Room Air 03/03/25 04:30 O2 Flow Rate 0.5 03/03/25 02:15 FiO2 3 03/02/25 08:15 03/02/25 03/02/25 03/03/25 14:59 22:59 06:59 Intake Total 723.375 / 465.992 6088.379 / 2061.754 432.048 / 2493.802 Output Total 2552 / 2552 Balance -1828.625 / -7665.311 6803.379 / -490.246 432.048 / -58.198 Weight last 48 hrs Weight 70.5 kg Weight 67.6 kg Physical Exam Narrative: GEN: nad alert, HEAD: normocephalic, atraumatic EYES: eomi, anicteric sclera HEENT: mmm NECK: no jvd CV: rrr LUNGS: diminished BS bilaterally ABD: soft, nt, nd EXT: no LE edema NEURO: grossly normal SKIN: no rash Data 03/02/25 21:57 03/02/25 04:20 Micro: Microbiology 03/02/25 04:20 Cryptococcal Antigen (Serum) - Final Blood A&P Assessment and plan (1) ESRD (end stage renal disease) on dialysis: Plan 1. End-stage renal disease He is on maintenance HD on a MWF schedule, but had hd on 02/27 and 02/28 and 03/02. Hold off HD today , BP remains low 2. Acute respiratory failure- with pulmonary edema, HD as above 3. A-fib with RVR- his hr is controlled 4. History of HIV 5. Pancytopenia- likely due to HIV 6. Anemia in ckd- YAZMIN with HD 7. Thambocytopenia , avoid heparin with hD 8. Hypotension , on levophed , off dobutamine drip, added Midodrine and IV albumin PDMP PDMP Reviewed: Not Reviewed Attestations Medical Necessity Statement*: per [facility] Coding Level of Care Code Acute Code for [facility] Diagnoses ESRD (end stage renal disease) on dialysis N18.6; Z99.2
[2025-03-03] MEDS: midodrine 5 mg TABLET 10 MG PO ×3 (08:38→20:01)
[2025-03-03] MEDS: colchicine 0.6 mg Tablet 0.3 MG PO (08:38)
[2025-03-03] MEDS: docusate sodium 100 mg Capsule PO ×2 (08:38→18:16)
[2025-03-03] MEDS: amiodarone 200 mg Tablet PO ×2 (08:38→18:16)
[2025-03-03] MEDS: BIKTARVY 1 EACH PO (08:38)
[2025-03-03 09:24] LABS: Basophils % 0.7 %; Eosinophils # 0.1 10^3/uL (0.0-0.8); Eosinophils % 2.3 %; Hematocrit 28.7 % (37-53); Lymphocytes # 0.1 10^3/uL (0.8-4.8); Lymphocytes % 2.3 %; Mean Corpuscular Hemoglobin 29.9 pg (27-33); Mean Corpuscular Volume 96.3 fl (82-101); Monocytes # 0.2 10^3/uL (0.2-0.9); Monocytes % 4.1 %; Neutrophils # 3.95 10^3/uL (1.8-7.7); Neutrophils % 89.9 %; Nucleated Red Blood Cells % 0.9 %; Platelet Count 59 10^3/cmm (157-399); Red Blood Count 2.98 10^6/uL (3.85-5.65); White Blood Count 4.39 10^3/uL (3.29-11.43)
[2025-03-03 09:38] LABS: Albumin Level 4.3 g/dL (3.5-5.2); Anion Gap 17.1 (5-19); Blood Urea Nitrogen 30 mg/dL (6-20); Calcium 8.5 mg/dL (8.5-10.5); Carbon Dioxide 29 mmol/L (22-29); Chloride 98 mmol/L (98-107); Creatinine Clr Calc Pharmacy 23.1624; Glomerular Filtration Rate 20.8 mL/min (90-130); Glucose 82 mg/dL (65-115); Phosphorus 4.3 mg/dL (2.5-4.5); Potassium 4.1 mmol/L (3.5-5.1); Sodium 140 mmol/L (136-145)
--- NOTE | 2025-03-03 10:14 | P.PN_ITS ---
Subjective 2 Subjective: ID progress note Patient is planend for paracentesis post platelet transfusion today Denies new complaints Biktarvy arranaged, planned to be started today VL > 500, 000 , genotype awaited Quantiferon screen indeterminate Medications: Reviewed: Yes Vitals/I&O/Wt Last Vital Signs Temp 98.1 F 03/03/25 04:00 Pulse 84 03/03/25 09:30 Resp 16 03/03/25 09:30 BP 83/63 03/03/25 06:15 Pulse Ox 100 03/03/25 09:30 O2 Del Method Nasal Cannula 03/03/25 09:30 O2 Flow Rate 0.5 03/03/25 06:15 FiO2 1 03/03/25 09:30 03/02/25 03/03/25 03/03/25 22:59 06:59 14:59 Intake Total 1338.379 / 2061.754 432.048 / 2493.802 Balance 1338.379 / -490.246 432.048 / -58.198 Weight last 48 hrs Weight 60 kg Weight 60 kg Weight 70.5 kg Weight 67.6 kg Physical Exam 2 Narrative: General: No acute distress, AO x3, chronically ill appearing HEENT: PERRLA, pupils bilaterally equal and reactive, pallors not present Chest: Normal vesicular breath sounds, no added sounds, equal good air entry bilaterally CVS: S1-S2 regular, no murmurs, no tachycardia, no gallops, no rubs Abdomen: Soft, distended, non tender Neuro: No focal deficits, no facial deformity, AO x3, power 5/5 in all limbs Data 03/03/25 09:10 03/03/25 09:10 Micro: Microbiology 03/02/25 04:20 Cryptococcal Antigen (Serum) - Final Blood A&P Assessment and plan (1) HIV (human immunodeficiency virus infection): Pateint with known HIV infection, has not been compliant with medications since at least one year VL now returned at 50, 100 requested HIV genotype pending to start Biktarvy 1 tab po daily today further recommendations based on cd4 count requested sputum PJP PCR pending negative serum cryptococcal antigen anticipate GGOs to be pulm edema however with leukopenia, anticipated low cd4 count, will need to evaluate for PJP. Pending serum Fungitell screen and PJP PCR from sputum he was previously on dapsone for ppx but has not taken it recently. (2) Pancytopenia: suspect may be related to HIV/AIDS pending cd4 count, pending tick panel (3) Cardiogenic shock: (4) Anasarca: likey related to renal vs cardiogenic cause (5) (QFT) QuantiFERON-TB test reaction without active tuberculosis: Indeterminate Quantiferon screen likely related to leukopenia, impaired immune response Not reliable in this setting for diagnosis or exclusion of TB disease or LTBI at this point if undergoing paracentesis today, please add on mycobacterial culture in addition to fluid analysis and bacterial cx. Health dept contacted for rapid TB rule out- requested sputum MTB PCR and cx at [facility] lab in addition to specimen sent to [employer] as TAT at [facility] expected to be 7-10 days. Unfortunately health dept cannot run AFB cx or PCR on peritoneal fluid per discussion with health dept nurse. (6) Syphilis: history of treated syphilis currently RPR negative awaiting FTA-ABS PDMP PDMP Reviewed: Not Reviewed Attestations 2 Medical Necessity Statement*: per admitting Coding Level of Care Code Acute Code for Chg Fwd High MDM includes number and complexity of problems actively addressed during encounter, amount and/or complexity of data reviewed/ordered and described risk of complication, morbidity or mortality of management as documented Diagnoses HIV infection, unspecified symptom status Z21 HIV symptom status: unspecified Pancytopenia D61.818 Cardiogenic shock R57.0 Anasarca R60.1 (QFT) QuantiFERON-TB test reaction without active tuberculosis R76.12 Syphilis A53.9
[2025-03-03 10:39] LABS: Slide Review Slide Review Perform
[2025-03-03] MEDS: piperacillin-tazobactam 3.375 GM in sodium chloride 0.9% (plus) 50 ML IV ×2 (12:36→23:08)
--- NOTE | 2025-03-03 14:09 | P.PN_ITS ---
Subjective 2 Subjective: No acute events overnight. Patient seen at the bedside today and has no new complaints. Patient noted to have a pause yesterday, amiodarone decreased to 100 mg daily Medications: Reviewed: Yes Medication Review Details: Current drips Levophed Vitals/I&O/Wt Last Vital Signs Temp 97.4 F L 03/03/25 12:30 Pulse 77 03/03/25 14:00 Resp 13 03/03/25 14:00 BP 88/70 03/03/25 14:00 Pulse Ox 98 03/03/25 14:00 O2 Del Method Room Air 03/03/25 14:00 O2 Flow Rate 0.5 03/03/25 06:15 FiO2 1 03/03/25 09:30 03/02/25 03/03/25 03/03/25 22:59 06:59 14:59 Intake Total 1338.379 / 2061.754 432.048 / 2493.802 250 / 250 Balance 1338.379 / -490.246 432.048 / -58.198 250 / 250 Weight last 48 hrs Weight 60 kg Weight 60 kg Weight 70.5 kg Weight 67.6 kg Physical Exam 2 Narrative: General -Awake, alert, no acute distress, chronically ill-appearing HEENT-normocephalic, atraumatic, neck is supple Lungs-clear to auscultation bilaterally, no wheezes or crackles CVS -S1-S2, regular rate and rhythm Abdomen -soft, nontender, normal bowel sounds Extremities-no pedal edema Neurology -no gross focal deficits Data 03/03/25 09:10 03/03/25 09:10 Micro: Microbiology 03/02/25 15:03 Gram Stain - Final Peritoneal Fluid Body Fluid Culture - Preliminary 03/03/25 00:16 Gram Stain - Final Sputum - Expectorated Sputum A&P Assessment and plan (1) HIV (human immunodeficiency virus infection): (2) Pancytopenia: (3) Cardiogenic shock: (4) Anasarca: likey related to renal vs cardiogenic cause (5) (QFT) QuantiFERON-TB test reaction without active tuberculosis: (6) Syphilis: Plan # Shock - Thought to be cardiogenic -TTE showed an EF of 32% - Patient remains on Levophed to maintain maps greater than 65 -Also receiving albumin -Cardiology following # Heart failure with reduced EF # Moderate to severe mitral valve regurgitation # Nonischemic cardiomyopathy -Continue cardiac medications -Hemodialysis for volume management -Cardiology following # Atrial fibrillation with RVR - RVR is resolved - Continue amiodarone per cardiology - Aspirin, other anticoagulation held in the setting of thrombocytopenia #HIV -Pateint with known HIV infection, has not been compliant with medications since at least one year VL - 50, 100 -Patient to start Biktarvy 1 tab po daily -ID following - Indeterminate QuantiFERON screening # Groundglass opacities -In the setting of HIV, differentials are broad -Currently thought to be due to pulmonary edema - Fungitell screen, PJP PCR pending # Pancytopenia -In the setting of HIV -Patient received PRBC and platelet transfusion - Continue to monitor counts, transfuse as appropriate - Tickborne illness panel is pending # ESRD on hemodialysis - Continue routine hemodialysis #Syphilis: history of treated syphilis currently RPR negative awaiting FTA-ABS # Ascites - Patient is status post paracentesis of 5 L of ascitic fluid - Ascitic fluid analysis pending - Liver noted to be normal on CT scan # IVC filter in place - Outpatient follow-up with interventional radiology/vascular PDMP PDMP Reviewed: Not Reviewed Attestations 2 Medical Necessity Statement*: Patient continues to require inpatient care, he is in shock requiring vasopressors Coding Level of Care Code Acute Code for Chg Fwd Diagnoses HIV infection, unspecified symptom status Z21 HIV symptom status: unspecified Pancytopenia D61.818 Cardiogenic shock R57.0 Anasarca R60.1 (QFT) QuantiFERON-TB test reaction without active tuberculosis R76.12 Syphilis A53.9
[2025-03-03] MEDS: ondansetron 2 mg/ML SDV 2 mL 4 MG IVP (14:25)
--- NOTE | 2025-03-03 15:38 | P.PN_ITS ---
<Statement entered by Elgin Lewis M.D - 03/08/25 10:24> Patient was cared for in conjunction with an advanced practice practitioner.? I reviewed the chart and all pertinent data including imaging, telemetry, and laboratory results.? I discussed the patient in detail with the advanced practice practitioner.? Please see?their note for progress note, testing results and agreed upon plan of care for the patient. Subjective 2 Subjective: Patient states chest pain has much improved. Denies any at this time. He has had no further pauses on amiodarone 200 twice daily will continue this. Patient had paracentesis. States he feels much better after this. H&H 8.9 and 28.7. Platelet count is up to 59. Vitals/I&O/Wt Last Vital Signs Temp 97.4 F L 03/03/25 12:30 Pulse 77 03/03/25 14:00 Resp 20 H 03/03/25 14:30 BP 88/70 03/03/25 14:00 Pulse Ox 100 03/03/25 14:30 O2 Del Method Room Air 03/03/25 14:00 O2 Flow Rate 0.5 03/03/25 06:15 FiO2 1 03/03/25 09:30 03/03/25 03/03/25 03/03/25 06:59 14:59 22:59 Intake Total 432.048 / 2493.802 250 / 250 Balance 432.048 / -58.198 250 / 250 Weight last 48 hrs Weight 132 lb 4.438 oz Weight 132 lb 4.438 oz Weight 155 lb 6.814 oz Weight 149 lb 0.52 oz Physical Exam 2 Narrative: General: No apparent distress, healthy appearing, well nourished HENMT: normoceophalic Muskuloskeletal: Full ROM Respiratory: Normal respiratory effort, clear to auscultation bilaterally throughout all lung du, no use of accessory muscles Cardio: No JVD, regular rate, regular rhythm, S1 S2 normal, no murmurs, peripheral pulses 2+ radial palpated bilaterally GI: slightly distended Extremities: Full ROM, normal, normal capillary refill, no cyanosis or edema Neuro: Alert and oriented x4, no focal motor deficits Psych: Affect normal Skin: No rashes or lesions noted, no wounds Data 03/03/25 09:10 06/05/25 09:10 Micro: Microbiology 03/02/25 15:03 Gram Stain - Final Peritoneal Fluid Body Fluid Culture - Preliminary 03/03/25 00:16 Gram Stain - Final Sputum - Expectorated Sputum A&P Assessment and plan (1) Cardiogenic shock: (2) Nonischemic cardiomyopathy: (3) Atrial fibrillation with rapid ventricular response: (4) Congestive heart failure due to cardiomyopathy: (5) Elevated troponin: (6) Pancytopenia: (7) Thrombocytopenia: (8) ESRD (end stage renal disease) on dialysis: (9) HIV (human immunodeficiency virus infection): (10) COPD (chronic obstructive pulmonary disease): (11) Sleep apnea: (12) Noncompliance: Plan Patient has had no further pauses. Continue amiodarone 200 mg twice daily and continue to monitor for future events. Continue to hold metoprolol. Continue levophed drip and wean as tolerated. Patient had paracentesis today and feels much improved. H&H is low as well as platelets. Continue to hold aspirin due to high risk for bleeding. PDMP PDMP Reviewed: Not Reviewed Attestations 2 Medical Necessity Statement*: Deferred to primary. Coding Level of Care Code Acute Code for g Fwd Diagnoses Cardiogenic shock R57.0 Nonischemic cardiomyopathy I42.8 Atrial fibrillation with rapid ventricular response I48.91 Congestive heart failure due to cardiomyopathy I50.9; I42.9 Elevated troponin R79.89 Pancytopenia D61.818 Thrombocytopenia D69.6 ESRD (end stage renal disease) on dialysis N18.6; Z99.2 HIV infection, unspecified symptom status Z21 HIV symptom status: unspecified Other emphysema J43.8 COPD type: emphysema Emphysema type: other Sleep apnea, unspecified type G47.30 Sleep apnea type: unspecified type Noncompliance Z91.199
[2025-03-03] MEDS: pantoprazole 40 mg SDV IVP (20:01)
[2025-03-04] VITALS (84 sets, daily range): BP systolic 67–126; BP diastolic 54–93; PULSE 62–89; RESP 3–25; TEMP 35.9–36.6; O2SAT 90–100
[2025-03-04] MEDS: norepinephrine 4 MG/250 ML BAG 22.5 MG IV ×2 (01:10→21:27)
[2025-03-04] MEDS: albumin 25 G/100 ML BAG 60 G IV ×3 (03:40→18:17)
[2025-03-04 04:11] LABS: Basophils % 0.7 %; Eosinophils # 0.1 10^3/uL (0.0-0.8); Eosinophils % 2.7 %; Hematocrit 28.7 % (37-53); Lymphocytes # 0.2 10^3/uL (0.8-4.8); Lymphocytes % 3.7 %; Mean Corpuscular HGB Conc 31.4 g/dL (30-55); Mean Corpuscular Hemoglobin 29.8 pg (27-33); Mean Platelet Volume 12.5 fL (7.4-10.4); Monocytes # 0.2 10^3/uL (0.2-0.9); Monocytes % 5.5 %; Neutrophils % 86.9 %; Nucleated Red Blood Cells % 0.7 %; Platelet Count 50 10^3/cmm (157-399); Red Blood Count 3.02 10^6/uL (3.85-5.65); Red Cell Distribution Width 21.4 % (12.1-15.1); White Blood Count 4.03 10^3/uL (3.29-11.43)
[2025-03-04] MEDS: morphine 4 mg/mL SDV 1 mL 2 MG IVP ×4 (04:15→20:02)
[2025-03-04] MEDS: diphenhydrAMINE 50 mg/mL SDV 1mL 25 MG IVP ×4 (04:16→20:02)
[2025-03-04 04:28] LABS: Albumin Level 4.2 g/dL (3.5-5.2); Anion Gap 19.2 (5-19); Blood Urea Nitrogen 37 mg/dL (6-20); Calcium 8.7 mg/dL (8.5-10.5); Carbon Dioxide 26 mmol/L (22-29); Chloride 95 mmol/L (98-107); Creatinine Clr Calc Pharmacy 20.5303; Glomerular Filtration Rate 18.1 mL/min (90-130); Glucose 74 mg/dL (65-115); Phosphorus 4.8 mg/dL (2.5-4.5); Potassium 4.2 mmol/L (3.5-5.1); Sodium 136 mmol/L (136-145)
--- NOTE | 2025-03-04 05:25 | PM.PN ---
Subjective Subjective: s/p paracentesis Medications: Reviewed: Yes Vitals/I&O/Wt Last Vital Signs Temp 97.2 F L 03/04/25 04:00 Pulse 78 03/04/25 04:15 Resp 21 H 03/04/25 04:15 BP 98/76 03/04/25 04:15 Pulse Ox 97 03/04/25 04:15 O2 Del Method Room Air 03/04/25 04:15 O2 Flow Rate 0.5 03/03/25 06:15 FiO2 1 03/03/25 09:30 03/03/25 03/03/25 03/04/25 14:59 22:59 06:59 Intake Total 250 / 250 500 / 750 415.0 / 1165.0 Balance 250 / 250 500 / 750 415.0 / 1165.0 Weight last 48 hrs Weight 60 kg Weight 60 kg Weight 70.5 kg Weight 67.6 kg Physical Exam Narrative: GEN: nad alert, HEAD: normocephalic, atraumatic EYES: eomi, anicteric sclera HEENT: mmm NECK: no jvd CV: rrr LUNGS: diminished BS bilaterally ABD: soft, nt, nd EXT: no LE edema NEURO: grossly normal SKIN: no rash Data 03/04/25 03:46 03/04/25 03:46 Micro: Microbiology 02/26/25 22:30 Blood Culture - Final Blood NO GROWTH AFTER 5 DAYS 02/26/25 22:25 Blood Culture - Final Blood NO GROWTH AFTER 5 DAYS 03/02/25 15:03 Gram Stain - Final Peritoneal Fluid Body Fluid Culture - Preliminary 03/03/25 00:16 Gram Stain - Final Sputum - Expectorated Sputum A&P Assessment and plan (1) ESRD (end stage renal disease) on dialysis: Plan 1. End-stage renal disease He is on maintenance HD on a MWF schedule, but had hd on 02/27 and 02/28 and 03/02. HD today 2. Acute respiratory failure- with pulmonary edema, HD as above 3. A-fib with RVR- his hr is controlled 4. History of HIV 5. Pancytopenia- likely due to HIV 6. Anemia in ckd- YAZMIN with HD 7. Thambocytopenia , avoid heparin with hD 8. Hypotension , on levophed , off dobutamine drip, added Midodrine and IV albumin PDMP PDMP Reviewed: Not [facility]ed [facility]cess[facility] Statement*: per pa Coding Level of Care Code Acute Code for Chg Fwd Diagnoses ESRD (end stage renal disease) on dialysis N18.6; Z99.2
[2025-03-04] MEDS: amiodarone 200 mg Tablet PO ×2 (08:46→18:17)
[2025-03-04] MEDS: midodrine 5 mg TABLET 10 MG PO ×3 (08:47→21:22)
[2025-03-04] MEDS: BIKTARVY 1 EACH PO (08:47)
[2025-03-04] MEDS: docusate sodium 100 mg Capsule PO ×2 (08:47→18:17)
--- NOTE | 2025-03-04 10:48 | P.PN_ITS ---
Subjective 2 Subjective: ID progress note Chart reveiwed care plan discussed with hospitalist Medications: Reviewed: Yes Vitals/I&O/Wt Last Vital Signs Temp 97.9 F 03/04/25 07:30 Pulse 73 03/04/25 09:23 Resp 16 03/04/25 09:23 BP 108/78 03/04/25 07:30 Pulse Ox 95 03/04/25 09:23 O2 Del Method Room Air 03/04/25 09:23 O2 Flow Rate 0.5 03/03/25 06:15 FiO2 1 03/03/25 09:30 03/03/25 03/04/25 03/04/25 22:59 06:59 14:59 Intake Total 500 / 750 515.0 / 1265.0 205.375 / 205.375 Balance 500 / 750 515.0 / 1265.0 205.375 / 205.375 Weight last 48 hrs Weight 63 kg Weight 63 kg Weight 60 kg Weight 60 kg Weight 70.5 kg Data 03/04/25 03:46 03/04/25 03:46 Micro: Microbiology 03/02/25 15:03 Gram Stain - Final Peritoneal Fluid Anaerobic Culture - Preliminary Body Fluid Culture - Preliminary 02/26/25 22:30 Blood Culture - Final Blood NO GROWTH AFTER 5 DAYS 02/26/25 22:25 Blood Culture - Final Blood NO GROWTH AFTER 5 DAYS 03/03/25 00:16 Gram Stain - Final Sputum - Expectorated Sputum A&P Assessment and plan (1) HIV (human immunodeficiency virus infection): Pateint with known HIV infection, has not been compliant with medications since at least one year VL now returned at 50, 100 requested HIV genotype pending to start Biktarvy 1 tab po daily today further recommendations based on cd4 count requested sputum PJP PCR pending negative serum cryptococcal antigen anticipate GGOs to be pulm edema however with leukopenia, anticipated low cd4 count, will need to evaluate for PJP. Pending serum Fungitell screen and PJP PCR from sputum he was previously on dapsone for ppx but has not taken it recently. (2) Pancytopenia: suspect may be related to HIV/AIDS pending cd4 count, pending tick panel (3) Cardiogenic shock: (4) Anasarca: likey related to renal vs cardiogenic cause (5) (QFT) QuantiFERON-TB test reaction without active tuberculosis: Indeterminate Quantiferon screen likely related to leukopenia, impaired immune response Not reliable in this setting for diagnosis or exclusion of TB disease or LTBI at this point if undergoing paracentesis today, please add on mycobacterial culture in addition to fluid analysis and bacterial cx. Health dept contacted for rapid TB rule out- [facility] to specimen sent to [facility] as TAT at [facility] expected to be 7-10 days. Unfortunately health dept cannot run AFB cx or PCR on peritoneal fluid per discussion with health dept nurse. (6) Syphilis: history of treated syphilis currently RPR negative awaiting FTA-ABS Plan 03/04/25: Care plan discussed with hospitalist. CD4 count returned undetectable due to severe lymphopenia. Start azithromycin 1500 weekly MAC ppx. Though patient is resuming HAART, he has a h/o non complaince therefore starting MAC ppx due to unreliable HAART intake. Start Bactrim DS three times per week PJP ppx. PJP PCR is pending. elevated BDG ~ 190 , sputum cx showing budding yeast on prelim gram stain. Per discussion with [employer], this is more likely lizbeth, less likely crytptoccocus. We do not have the ability to perform [place] ink staining in our micro lab. Requesting fungal cx send out to [facility]. Start Fluconazole 400mg x 1 followed by 200mg renally dosed fluconazole for presumptive cryptoccocal coverage while awaiting cx from outside lab. Crytococcal ag thus far negative. Since diagnosis of cryptoccus is suspected and not confirmed at this point, okay to continue HAART along side fluconazole until confirmation attained. Awaiting return of MTB PCR sputum from health dept. Can d/c Zosyn Will follow PDMP PDMP Reviewed: Not Reviewed Attestations 2 Medical Necessity Statement*: per admitting Coding Level of Care Code Acute Code for Chg Fwd Diagnoses HIV infection, unspecified symptom status Z21 HIV symptom status: unspecified Pancytopenia D61.818 Cardiogenic shock R57.0 Anasarca R60.1 (QFT) QuantiFERON-TB test reaction without active tuberculosis R76.12 Syphilis A53.9
[2025-03-04] MEDS: sulfamethoxazole-trimeth DS 160-800 mg Tablet 1 TAB PO (10:53)
[2025-03-04] MEDS: fluconazole 100 mg Tablet 400 MG PO (10:54)
--- NOTE | 2025-03-04 10:55 | P.PN_ITS ---
Subjective 2 Subjective: No acute events overnight. Patient seen at the bedside today and has no new complaints. He remains on Levophed infusion. Medications: Reviewed: Yes Medication Review Details: Current drips Levophed Vitals/I&O/Wt Last Vital Signs Temp 97.9 F 03/04/25 07:30 Pulse 73 03/04/25 09:23 Resp 16 03/04/25 09:23 BP 108/78 03/04/25 07:30 Pulse Ox 95 03/04/25 09:23 O2 Del Method Room Air 03/04/25 09:23 O2 Flow Rate 0.5 03/03/25 06:15 FiO2 1 03/03/25 09:30 03/03/25 03/04/25 03/04/25 22:59 06:59 14:59 Intake Total 500 / 750 515.0 / 1265.0 206.500 / 206.500 Balance 500 / 750 515.0 / 1265.0 206.500 / 206.500 Weight last 48 hrs Weight 63 kg Weight 63 kg Weight 60 kg Weight 60 kg Weight 70.5 kg Physical Exam 2 Narrative: General -Awake, alert, no acute distress, chronically ill-appearing HEENT-normocephalic, atraumatic, neck is supple Lungs-clear to auscultation bilaterally, no wheezes or crackles CVS -S1-S2, regular rate and rhythm Abdomen -soft, nontender, normal bowel sounds Extremities-no pedal edema Neurology -no gross focal deficits Data 03/04/25 03:46 03/04/25 03:46 Micro: Microbiology 03/02/25 15:03 Gram Stain - Final Peritoneal Fluid Anaerobic Culture - Preliminary Body Fluid Culture - Preliminary 02/26/25 22:30 Blood Culture - Final Blood NO GROWTH AFTER 5 DAYS 02/26/25 22:25 Blood Culture - Final Blood NO GROWTH AFTER 5 DAYS 03/03/25 00:16 Gram Stain - Final Sputum - Expectorated Sputum A&P Assessment and plan (1) HIV (human immunodeficiency virus infection): (2) Pancytopenia: (3) Cardiogenic shock: (4) Anasarca: likey related to renal vs cardiogenic cause (5) (QFT) QuantiFERON-TB test reaction without active tuberculosis: (6) Syphilis: Plan # Shock - Thought to be cardiogenic -TTE showed an EF of 32% - Patient remains on Levophed to maintain maps greater than 65 -Also receiving albumin, midodrine -Cardiology following # Heart failure with reduced EF # Moderate to severe mitral valve regurgitation # Nonischemic cardiomyopathy -Continue cardiac medications -Hemodialysis for volume management -Cardiology following # Atrial fibrillation with RVR - RVR is resolved - Continue amiodarone per cardiology - Aspirin, other anticoagulation held in the setting of thrombocytopenia #HIV -Pateint with known HIV infection, has not been compliant with medications since at least one year VL - 50, 100, CD4 count - undetectable , technically AIDs -Continue Biktarvy 1 tab po daily -ID following, appreciate recommendations . Patient started on PJP and MAC prophylaxis - Azithromycin and bactrim # Groundglass opacities -In the setting of HIV, differentials are broad -Currently thought to be due to pulmonary edema, atypical pneumonia is possible in the setting of HIV -Fungitell screen- positive PJP PCR pending, sputum cultures - yeast -Repeat sputum to be sent for identification of yeast -Indeterminate QuantiFERON screening, he remains on airborne precautions . Mycobacterial Smear - Pending -Fluconazole started by ID for possible cryptococcus vs lizbeth -Patient also on zosyn #Pancytopenia -In the setting of HIV -Patient received PRBC and platelet transfusion - Continue to monitor counts, transfuse as appropriate - Tickborne illness panel is pending # ESRD on hemodialysis - Continue routine hemodialysis #Syphilis: history of treated syphilis currently RPR negative awaiting FTA-ABS # Ascites - Patient is status post paracentesis of 5 L of ascitic fluid - Ascitic fluid analysis pending - Liver noted to be normal on CT scan # IVC filter in place - Outpatient follow-up with interventional radiology/vascular PDMP PDMP Reviewed: Not Reviewed Attestations 2 Medical Necessity Statement*: Patient continues to require inpatient care, he is in shock requiring vasopressors Coding Level of Care Code Acute Code for [facility] Fwd Diagnoses HIV infection, unspecified symptom status Z21 HIV symptom status: unspecified Pancytopenia D61.818 Cardiogenic shock R57.0 Anasarca R60.1 (QFT) QuantiFERON-TB test reaction without active tuberculosis R76.12 Syphilis A53.9
--- NOTE | 2025-03-04 13:31 | PC.SOCIAL ---
IMM Updated Updated pt on IMM. No questions voiced. Provided pt a copy. Initialed, dated, & timed copy in chart.
[2025-03-04 18:29] LABS: RMSF IGG NOT DETECTED; RMSF IGM NOT DETECTED
[2025-03-04] MEDS: heparin, porcine 1,000 unit/mL INJ 10 mL 1000 UNIT IV (19:00)
--- NOTE | 2025-03-04 19:42 | P.PN_ITS ---
<Statement entered by Shila Lilly MD - 03/04/25 22:30> Patient was evaluated and cared for in conjunction with an advanced practice practitioner. I personally examined the patient and reviewed the chart and all pertinent data including imaging, telemetry, and laboratory results. I discussed the patient in detail with the advanced practice practitioner. Please see their note for complete H&P testing result and agreed upon plan of care for the patient. Subjective 2 Subjective: Patient is doing well today without complaints. Levo is now off. Platelets are at 50. H&H 06/26.7. Vitals/I&O/Wt Last Vital Signs Temp 96.7 F L 03/04/25 19:34 Pulse 65 03/04/25 19:34 Resp 14 03/04/25 19:34 BP 92/74 03/04/25 19:34 Pulse Ox 100 03/04/25 19:00 O2 Del Method Room Air 03/04/25 19:00 O2 Flow Rate 0.5 03/03/25 06:15 FiO2 1 03/03/25 09:30 03/04/25 03/04/25 03/04/25 06:59 14:59 22:59 Intake Total 515.0 / 1265.0 206.500 / 206.500 107 / 313.500 Balance 515.0 / 1265.0 206.500 / 206.500 107 / 313.500 Weight last 48 hrs Weight 138 lb 14.259 oz Weight 138 lb 14.259 oz Weight 132 lb 4.438 oz Weight 132 lb 4.438 oz Physical Exam 2 Narrative: General: No apparent distress, healthy appearing, well nourished HENMT: normoceophalic Muskuloskeletal: Full ROM Respiratory: Normal respiratory effort, clear to auscultation bilaterally throughout all lung du, no use of accessory muscles Cardio: No JVD, regular rate, regular rhythm, S1 S2 normal, no murmurs, peripheral pulses 2+ radial palpated bilaterally GI: slightly distended Extremities: Full ROM, normal, normal capillary refill, no cyanosis or edema Neuro: Alert and oriented x4, no focal motor deficits Psych: Affect normal Skin: No rashes or lesions noted, no wounds Data 03/04/25 03:46 03/04/25 03:46 Micro: Microbiology 03/02/25 12:20 Mycobacterial Smear - Preliminary Sputum - Expectorated Sputum 03/02/25 15:03 Mycobacterial Smear - Preliminary Body Fluids - Peritoneal 03/02/25 15:03 Gram Stain - Final Peritoneal Fluid Anaerobic Culture - Preliminary Body Fluid Culture - Preliminary 03/03/25 00:16 Gram Stain - Final Sputum - Expectorated Sputum Sputum Culture - Preliminary Yeast species 02/26/25 22:30 Blood Culture - Final Blood NO GROWTH AFTER 5 DAYS 02/26/25 22:25 Blood Culture - Final Blood NO GROWTH AFTER 5 DAYS A&P Assessment and plan (1) Cardiogenic shock: (2) Nonischemic cardiomyopathy: (3) Atrial fibrillation with rapid ventricular response: (4) Congestive heart failure due to cardiomyopathy: (5) Elevated troponin: (6) Pancytopenia: (7) Thrombocytopenia: (8) ESRD (end stage renal disease) on dialysis: (9) HIV (human immunodeficiency virus infection): (10) COPD (chronic obstructive pulmonary disease): (11) Sleep apnea: (12) Noncompliance: Plan Patient has had no further pauses. Continue amiodarone 200 mg twice daily and continue to monitor for future events. Continue to hold metoprolol. Levophed is now off. H&H is low as well as platelets. Continue to hold aspirin due to high risk for bleeding. PDMP PDMP Reviewed: Not Reviewed Attestations 2 Medical Necessity Statement*: Deferred to primary. Coding Level [facility] Cardiogenic shock R57.0 Nonischemic cardiomyopathy I42.8 Atrial fibrillation with rapid ventricular response I48.91 Congestive heart failure due to cardiomyopathy I50.9; I42.9 Elevated troponin R79.89 Pancytopenia D61.818 Thrombocytopenia D69.6 ESRD (end stage renal disease) on dialysis N18.6; Z99.2 HIV infection, unspecified symptom status Z21 HIV symptom status: unspecified Other emphysema J43.8 COPD type: emphysema Emphysema type: other Sleep apnea, unspecified type G47.30 Sleep apnea type: unspecified type Noncompliance Z91.199
[2025-03-04] MEDS: pantoprazole 40 mg SDV IVP (20:02)
[2025-03-04] MEDS: ondansetron 2 mg/ML SDV 2 mL 4 MG IVP (20:02)
--- NOTE | 2025-03-04 21:48 | PC.NURSE ---
[facility] called and stated that they were not able to complete a Lymphocyte subsat panel 4 test on this pt d/t a low absolute lymphocyte count.
[2025-03-04 22:44] LABS: Treponema pallidum Ab REACTIVE MINIMAL
--- NOTE | 2025-03-04 22:51 | PC.HD ---
Levophed up to 6mcg/min required to maintain MAP =/>80 (minimum per Cardiology, reported by Santos DUPREE) throughout dialysis treatment, but pt remained asymptomatic through transient hypotensive episodes. Dr Kacey laurent.
[2025-03-05] VITALS (47 sets, daily range): BP systolic 83–134; BP diastolic 63–97; PULSE 67–91; RESP 6–25; TEMP 36.9; O2SAT 68–98
[2025-03-05] MEDS: morphine 4 mg/mL SDV 1 mL 2 MG IVP ×2 (00:31→04:26)
[2025-03-05] MEDS: diphenhydrAMINE 50 mg/mL SDV 1mL 25 MG IVP ×2 (00:31→04:35)
[2025-03-05] MEDS: albumin 25 G/100 ML BAG 60 G IV ×3 (02:34→19:27)
[2025-03-05 03:01] LABS: Basophils % 0.9 %; Eosinophils # 0.1 10^3/uL (0.0-0.8); Eosinophils % 2.9 %; Hematocrit 29.5 % (37-53); Lymphocytes # 0.2 10^3/uL (0.8-4.8); Lymphocytes % 5.4 %; Mean Corpuscular HGB Conc 30.8 g/dL (30-55); Mean Corpuscular Hemoglobin 29.5 pg (27-33); Mean Corpuscular Volume 95.8 fl (82-101); Mean Platelet Volume 12.1 fL (7.4-10.4); Monocytes # 0.2 10^3/uL (0.2-0.9); Monocytes % 6.6 %; Neutrophils # 2.92 10^3/uL (1.8-7.7); Neutrophils % 83.3 %; Nucleated Red Blood Cells % 0.6 %; Platelet Count 38 10^3/cmm (157-399); Red Blood Count 3.08 10^6/uL (3.85-5.65)
[2025-03-05 03:24] LABS: Alanine Aminotransferase 7 U/L (0-41); Albumin Level 4.7 g/dL (3.5-5.2); Alkaline Phosphatase 71 U/L (40-130); Anion Gap 17.1 (5-19); Aspartate Amino Transferase 17 U/L (0-40); Blood Urea Nitrogen 31 mg/dL (6-20); Calcium 9.1 mg/dL (8.5-10.5); Carbon Dioxide 27 mmol/L (22-29); Chloride 96 mmol/L (98-107); Creatinine Clr Calc Pharmacy 24.6491; Globulin 3.1 g/dL (1.3-4.6); Glomerular Filtration Rate 21.5 mL/min (90-130); Glucose 89 mg/dL (65-115); Osmolality Calculated 288 mOsm/kg (285-295); Potassium 4.1 mmol/L (3.5-5.1); Sodium 136 mmol/L (136-145); Total Bilirubin 1.3 mg/dL (0.15-1.2); Total Protein 7.8 g/dL (6.6-8.7)
[2025-03-05] MEDS: blistex lip oint 7 gm Tube 1 APPLIC TOPICAL (04:54)
[2025-03-05] MEDS: midodrine 5 mg TABLET 10 MG PO ×3 (08:23→20:24)
[2025-03-05] MEDS: docusate sodium 100 mg Capsule PO ×2 (08:23→17:54)
[2025-03-05] MEDS: amiodarone 200 mg Tablet PO ×2 (08:23→17:54)
[2025-03-05] MEDS: fluconazole 100 mg Tablet 200 MG PO (08:23)
[2025-03-05] MEDS: BIKTARVY 1 EACH PO (08:24)
[2025-03-05] MEDS: norepinephrine 4 MG/250 ML BAG 22.5 MG IV (09:08)
--- NOTE | 2025-03-05 09:28 | P.PN_ITS ---
Subjective 2 Subjective: remains on levophed Medications: Reviewed: Yes Vitals/I&O/Wt Last Vital Signs Temp 96.8 F L 03/04/25 22:48 Pulse 75 03/05/25 09:22 Resp 16 03/05/25 09:22 BP 107/77 03/05/25 08:30 Pulse Ox 95 03/05/25 09:22 O2 Del Method Room Air 03/05/25 09:22 O2 Flow Rate 4 03/04/25 23:00 FiO2 1 03/03/25 09:30 03/04/25 03/05/25 03/05/25 22:59 06:59 14:59 Intake Total 770.823 / 977.323 246.125 / 1223.448 533.625 / 533.625 Output Total 1828 / 1828 Balance -1057.177 / -850.677 246.125 / -604.552 533.625 / 533.625 Weight last 48 hrs Weight 66 kg Weight 63 kg Weight 63 kg Physical Exam 2 Narrative: GEN: nad alert, HEAD: normocephalic, atraumatic EYES: eomi, anicteric sclera HEENT: mmm NECK: no jvd CV: rrr LUNGS: diminished BS bilaterally ABD: soft, nt, nd EXT: no LE edema NEURO: grossly normal SKIN: no rash Data 03/05/25 02:48 03/05/25 02:48 Micro: Microbiology 03/02/25 12:20 Mycobacterial Smear - Preliminary Sputum - Expectorated Sputum 03/02/25 15:03 Mycobacterial Smear - Preliminary Body Fluids - Peritoneal 03/02/25 15:03 Gram Stain - Final Peritoneal Fluid Anaerobic Culture - Preliminary Body Fluid Culture - Preliminary 03/03/25 00:16 Gram Stain - Final Sputum - Expectorated Sputum Sputum Culture - Preliminary Yeast species A&P Assessment and plan (1) ESRD (end stage renal disease) on dialysis: Plan 1. End-stage renal disease He is on maintenance HD on a MWF schedule, HD yesterday 2. Acute respiratory failure- with pulmonary edema, HD as above 3. A-fib with RVR- his hr is controlled 4. History of HIV 5. Pancytopenia- likely due to HIV 6. Anemia in ckd- YAZMIN with HD 7. Thambocytopenia , avoid heparin with hD 8. Hypotension , on levophed , off dobutamine drip, added Midodrine and IV albumin PDMP PDMP Reviewed: Not Reviewed Attestations 2 Medical Necessity Statement*: per medicine Coding Level of Care Code Acute Code for [facility] F[facility] Diagnoses ESRD (end stage renal disease) on dialysis N18.6; Z99.2
--- NOTE | 2025-03-05 10:37 | P.PN_ITS ---
Subjective 2 Subjective: No acute events overnight. Patient seen at his bedside and has no new complaints. He remains on Levophed infusion. Seen Medications: Reviewed: Yes Medication Review Details: Current drips Levophed Vitals/I&O/Wt Last Vital Signs Temp 96.8 F L 03/04/25 22:48 Pulse 75 03/05/25 09:22 Resp 16 03/05/25 09:22 BP 107/77 03/05/25 08:30 Pulse Ox 95 03/05/25 09:22 O2 Del Method Room Air 03/05/25 09:22 O2 Flow Rate 4 03/04/25 23:00 FiO2 1 03/03/25 09:30 03/04/25 03/05/25 03/05/25 22:59 06:59 14:59 Intake Total 770.823 / 977.323 246.125 / 1223.448 533.625 / 533.625 Output Total 1828 / 1828 Balance -1057.177 / -850.677 246.125 / -604.552 533.625 / 533.625 Weight last 48 hrs Weight 66 kg Weight 63 kg Weight 63 kg Physical Exam 2 Narrative: General -Awake, alert, no acute distress, chronically ill-appearing HEENT-normocephalic, atraumatic, neck is supple Lungs-clear to auscultation bilaterally, no wheezes or crackles CVS -S1-S2, regular rate and rhythm Abdomen -soft, nontender, normal bowel sounds Extremities-no pedal edema Neurology -no gross focal deficits Data 03/05/25 02:48 03/05/25 02:48 Micro: Microbiology 03/02/25 15:03 Gram Stain - Final Peritoneal Fluid Anaerobic Culture - Preliminary Body Fluid Culture - Final 03/02/25 12:20 Mycobacterial Smear - Preliminary Sputum - Expectorated Sputum 03/02/25 15:03 Mycobacterial Smear - Preliminary Body Fluids - Peritoneal 03/03/25 00:16 Gram Stain - Final Sputum - Expectorated Sputum Sputum Culture - Preliminary Yeast species A&P Assessment and plan (1) HIV (human immunodeficiency virus infection): . (2) Pancytopenia: (3) Cardiogenic shock: (4) Anasarca: (5) (QFT) QuantiFERON-TB test reaction without active tuberculosis: (6) Syphilis: Plan # Shock - Thought to be cardiogenic -TTE showed an EF of 32% - Patient remains on Levophed to maintain maps greater than 65 , wean as appropriate -Also receiving albumin, midodrine -Cardiology following # Heart failure with reduced EF # Moderate to severe mitral valve regurgitation # Nonischemic cardiomyopathy -Continue cardiac medications -Hemodialysis for volume management -Cardiology following # Atrial fibrillation with RVR - RVR is resolved - Continue amiodarone per cardiology dose reduced due to episode of pause - Aspirin, other anticoagulation held in the setting of thrombocytopenia #HIV -Pateint with known HIV infection, has not been compliant with medications since at least one year VL - 50, 100, CD4 count - undetectable -Continue Biktarvy 1 tab po daily -ID following, appreciate recommendations . Patient started on PJP and MAC prophylaxis - Azithromycin and bactrim # Groundglass opacities -In the setting of HIV, differentials are broad -Currently thought to be due to pulmonary edema, atypical pneumonia is possible in the setting of HIV -Fungitell screen- positive PJP PCR pending, sputum cultures - yeast -Repeat sputum to be sent for identification of yeast -Indeterminate QuantiFERON screening, he remains on airborne precautions . Mycobacterial Smear - Pending -Fluconazole started by ID for possible cryptococcus vs lizbeth -Patient also on zosyn #Pancytopenia -In the setting of HIV -Patient received PRBC and platelet transfusion - Continue to monitor counts, transfuse as appropriate - Tickborne illness panel is pending # ESRD on hemodialysis - Continue routine hemodialysis #Syphilis: history of treated syphilis currently RPR negative awaiting FTA-ABS # Ascites - Patient is status post paracentesis of 5 L of ascitic fluid - Ascitic fluid analysis pending - Liver noted to be normal on CT scan # IVC filter in place - Outpatient follow-up with interventional radiology/vascular PDMP PDMP Reviewed: Not Reviewed Attestations 2 Medical Necessity Statement*: Patient continues to require inpatient care, he is in shock requiring vasopressors Coding Level of Care Code Acute Code for [facility] Fwd Diagnoses HIV infection, unspecified symptom status Z21 HIV symptom status: unspecified Pancytopenia D61.818 Cardiogenic shock R57.0 Anasarca R60.1 (QFT) QuantiFERON-TB test reaction without active tuberculosis R76.12 Syphilis A53.9
--- NOTE | 2025-03-05 11:58 | PC.PHAR ---
PHONED DR VU FOR CLARFICATION ON OXYCONTIN ER. SUGGESTED OXY IR 5 MG PRN OPPOSED TO ER FORMULATION. HORACE AGREED.
[2025-03-05] MEDS: oxyCODONE 5 mg IR Tab/Cap PO (12:03)
[2025-03-05 18:29] LABS: E. Chaffeensis AB IGG <1:64; E. Chaffeensis AB IGM <1:20
--- NOTE | 2025-03-05 18:49 | NUR.SHIFT ---
had good day weaned levophed down to 2mcg goal maintain mean pressure of 65 , less pain today after po medication started . good appititie for evening meal ,
[2025-03-05] MEDS: pantoprazole 40 mg SDV IVP (19:27)
[2025-03-06] VITALS (123 sets, daily range): BP systolic 86–117; BP diastolic 63–94; PULSE 69–101; RESP 10–32; TEMP 36.1–36.8; O2SAT 78–97
[2025-03-06] MEDS: albumin 25 G/100 ML BAG 60 G IV ×3 (02:51→18:11)
[2025-03-06 05:59] LABS: Basophils % 0.8 %; Eosinophils # 0.1 10^3/uL (0.0-0.8); Eosinophils % 3.1 %; Hematocrit 26.8 % (37-53); Lymphocytes # 0.2 10^3/uL (0.8-4.8); Lymphocytes % 6.2 %; Mean Corpuscular HGB Conc 30.6 g/dL (30-55); Mean Corpuscular Hemoglobin 29.2 pg (27-33); Mean Corpuscular Volume 95.4 fl (82-101); Monocytes # 0.2 10^3/uL (0.2-0.9); Monocytes % 6.9 %; Neutrophils # 2.14 10^3/uL (1.8-7.7); Neutrophils % 82.2 %; Nucleated Red Blood Cells % 0.8 %; Platelet Count 31 10^3/cmm (157-399); Red Blood Count 2.81 10^6/uL (3.85-5.65); Red Cell Distribution Width 20.5 % (12.1-15.1)
[2025-03-06 06:27] LABS: Alanine Aminotransferase 6 U/L (0-41); Albumin Level 4.7 g/dL (3.5-5.2); Alkaline Phosphatase 88 U/L (40-130); Anion Gap 21.2 (5-19); Aspartate Amino Transferase 15 U/L (0-40); Blood Urea Nitrogen 43 mg/dL (6-20); Calcium 9.1 mg/dL (8.5-10.5); Carbon Dioxide 25 mmol/L (22-29); Chloride 97 mmol/L (98-107); Creatinine Clr Calc Pharmacy 19.1156; Glucose 71 mg/dL (65-115); Osmolality Calculated 297 mOsm/kg (285-295); Potassium 4.2 mmol/L (3.5-5.1); Sodium 139 mmol/L (136-145); Total Protein 7.7 g/dL (6.6-8.7)
[2025-03-06 06:28] LABS: Slide Review Slide Review Perform
--- NOTE | 2025-03-06 09:03 | P.PN_ITS ---
Subjective 2 Subjective: off levophed Medications: Reviewed: Yes Vitals/I&O/Wt Last Vital Signs Temp 97.0 F L 03/06/25 07:21 Pulse 72 03/06/25 07:00 Resp 18 03/06/25 07:00 BP 107/83 03/06/25 07:00 Pulse Ox 97 03/06/25 04:00 O2 Del Method Room Air 03/05/25 09:22 O2 Flow Rate 4 03/04/25 23:00 FiO2 1 03/03/25 09:30 03/05/25 03/06/25 03/06/25 22:59 06:59 14:59 Intake Total 356.25 / 928.875 100 / 1028.875 Balance 356.25 / 928.875 100 / 1028.875 Weight last 48 hrs Weight 65.862 kg Weight 65.862 kg Weight 66 kg Physical Exam 2 Narrative: GEN: nad alert, HEAD: normocephalic, atraumatic EYES: eomi, anicteric sclera HEENT: mmm NECK: no jvd CV: rrr LUNGS: diminished BS bilaterally ABD: soft, nt, nd EXT: no LE edema NEURO: grossly normal SKIN: no rash Data 03/06/25 05:27 03/06/25 05:27 Micro: Microbiology 03/02/25 15:03 Gram Stain - Final Peritoneal Fluid Anaerobic Culture - Preliminary Body Fluid Culture - Final 03/03/25 00:16 Gram Stain - Final Sputum - Expectorated Sputum Sputum Culture - Preliminary Yeast species A&P Assessment and plan (1) ESRD (end stage renal disease) on dialysis: Plan 1. End-stage renal disease He is on maintenance HD on a MWF schedule 2. Acute respiratory failure- with pulmonary edema, HD as above 3. A-fib with RVR- his hr is controlled 4. History of HIV 5. Pancytopenia- likely due to HIV 6. Anemia in ckd- YAZMIN with HD 7. Thambocytopenia , avoid heparin with hD 8. Hypotension , off levophed , off dobutamine drip, added Midodrine and IV albumin PDMP PDMP Reviewed: Not Reviewed Attestations 2 Medical Necessity Statement*: per medicine Coding Level of Care Code Acute Code for [facility] Fwd Diagnoses ESRD (end stage renal disease) on dialysis N18.6; Z99.2
[2025-03-06] MEDS: midodrine 5 mg TABLET 10 MG PO ×3 (09:09→20:48)
[2025-03-06] MEDS: docusate sodium 100 mg Capsule PO ×2 (09:09→18:11)
[2025-03-06] MEDS: amiodarone 200 mg Tablet PO ×2 (09:09→18:11)
[2025-03-06] MEDS: fluconazole 100 mg Tablet 200 MG PO (09:10)
[2025-03-06] MEDS: BIKTARVY 1 EACH PO (09:10)
[2025-03-06] MEDS: sulfamethoxazole-trimeth DS 160-800 mg Tablet 1 TAB PO (11:46)
[2025-03-06] MEDS: oxyCODONE 5 mg IR Tab/Cap PO ×2 (11:46→20:48)
--- NOTE | 2025-03-06 18:37 | P.PN_ITS ---
Subjective 2 Subjective: No issues overnight. Denies pain. Eating a little better. Medications: Reviewed: Yes Vitals/I&O/Wt Last Vital Signs Temp 97.0 F L 03/06/25 07:21 Pulse 85 03/06/25 18:00 Resp 26 H 03/06/25 18:00 BP 107/86 03/06/25 18:00 Pulse Ox 96 03/06/25 11:46 O2 Del Method Room Air 03/06/25 10:24 O2 Flow Rate 4 03/04/25 23:00 FiO2 1 03/03/25 09:30 03/06/25 03/06/25 03/06/25 06:59 14:59 22:59 Intake Total 100 / 1028.875 400 / 400 Balance 100 / 1028.875 400 / 400 Weight last 48 hrs Weight 145 lb 3.2 oz Weight 145 lb 3.2 oz Weight 145 lb 8.081 oz Physical Exam 2 Narrative: General: Awake, alert, no acute distress, chronically ill-appearing HEENT: normocephalic, atraumatic, neck is supple Lungs: Clear to auscultation bilaterally, no wheezes or crackles Heart: S1-S2, regular rate and rhythm Abdomen: Soft, nontender, normal bowel sounds Extremities: No pedal edema Neurology: no gross focal deficits Data 03/06/25 05:27 03/06/25 05:27 Micro: Microbiology 03/03/25 00:16 Gram Stain - Final Sputum - Expectorated Sputum Sputum Culture - Final Leslye albicans 03/02/25 15:03 Gram Stain - Final Peritoneal Fluid Anaerobic Culture - Preliminary Body Fluid Culture - Final A&P Assessment and plan (1) HIV (human immunodeficiency virus infection): . (2) Pancytopenia: (3) Cardiogenic shock: (4) Anasarca: (5) (QFT) QuantiFERON-TB test reaction without active tuberculosis: (6) Syphilis: Plan 39-year-old male admitted for cardiogenic shock, secondary to heart failure with reduced ejection fraction. Echo showed EF of 32%. He was able to wean off Levophed and his pressures have been greater than 65. Continue albumin and midodrine. Cardiology is consulted as well as nephrology for end-stage renal failure and dialysis. Atrial fibrillation with RVR. Rate is currently well-controlled. Will continue amiodarone per cardiology. Atrial fibrillation with RVR. RVR is resolved Patient is HIV positive. He is on Biktarvy daily. Will continue. Tuberculosis testing is pending. Recheck a.m. labs. Continue Azithromycin, fluconazole, and Bactrim. Ascites. - Patient is status post paracentesis of 5 L of ascitic fluid with analysis pending. Has IVC filter in place. Code Status: Full IVF: NS DVT PPx: IVC filter GI PPx: Protonix ABx: Azithromycin, fluconazole, Bactrim Diet: Renal dialysis diet Discharge plan: To be determined PDMP PDMP Reviewed: Not Reviewed Attestations 2 Medical Necessity Statement*: Patient continues to require inpatient care for management of shock, antibiotic therapies, dialysis, labs, cultures. Coding Level of Care Code Acute Code for [facility] Fwd Moderate MDM includes number and complexity of problems actively addressed during encounter, amount and/or complexity of data reviewed/ordered and described risk of complication, morbidity or mortality of management as documented Diagnoses HIV infection, unspecified symptom status Z21 HIV symptom status: unspecified Pancytopenia D61.818 Cardiogenic shock R57.0 Anasarca R60.1 (QFT) QuantiFERON-TB test reaction without active tuberculosis R76.12 Syphilis A53.9
--- NOTE | 2025-03-06 19:55 | P.PN_ITS ---
Subjective 2 Subjective: Patient sleeping, blood pressures improved, Levophed is titrated off Medications: Reviewed: Yes Medication Review Details: Current drips Levophed Vitals/I&O/Wt Last Vital Signs Temp 97.0 F L 03/06/25 07:21 Pulse 85 03/06/25 18:00 Resp 26 H 03/06/25 18:00 BP 107/86 03/06/25 18:00 Pulse Ox 96 03/06/25 11:46 O2 Del Method Room Air 03/06/25 10:24 O2 Flow Rate 4 03/04/25 23:00 FiO2 1 03/03/25 09:30 03/06/25 03/06/25 03/06/25 06:59 14:59 22:59 Intake Total 100 / 1028.875 400 / 400 100 / 500 Balance 100 / 1028.875 400 / 400 100 / 500 Weight last 48 hrs Weight 145 lb 3.2 oz Weight 145 lb 3.2 oz Weight 145 lb 8.081 oz Physical Exam 2 Const: OTHER: GENERAL: Patient is sleepy HEART: Regular S1 and S2. No murmur, rub or gallop. LUNGS: Clear to auscultate bilaterally. CENTRAL NERVOUS SYSTEM: Grossly nonfocal. EXTREMITIES: Lower extremities with out edema bilaterally. Data 03/06/25 05:27 03/06/25 05:27 Micro: Microbiology 03/03/25 00:16 Gram Stain - Final Sputum - Expectorated Sputum Sputum Culture - Final Leslye albicans 03/02/25 15:03 Gram Stain - Final Peritoneal Fluid Anaerobic Culture - Preliminary Body Fluid Culture - Final A&P Assessment and plan (1) Cardiogenic shock: (2) Nonischemic cardiomyopathy: (3) Atrial fibrillation with rapid ventricular response: (4) Congestive heart failure due to cardiomyopathy: (5) Elevated troponin: (6) Pancytopenia: (7) Thrombocytopenia: (8) ESRD (end stage renal disease) on dialysis: (9) HIV (human immunodeficiency virus infection): (10) COPD (chronic obstructive pulmonary disease): (11) Sleep apnea: (12) Noncompliance: Plan Continue current management Continue to monitor Will optimize medication from tomorrow once blood pressure is more stable. PDMP PDMP Reviewed: Not Reviewed Attestations 2 Medical Necessity Statement*: Require continuation hospitalization for above defined care. Coding Level of Care Code Acute Code for [facility] Fwd Diagnoses Cardiogenic shock R57.0 Nonischemic cardiomyopathy I42.8 Atrial fibrillation with rapid ventricular response I48.91 Congestive heart failure due to cardiomyopathy I50.9; I42.9 Elevated troponin R79.89 Pancytopenia D61.818 Thrombocytopenia D69.6 ESRD (end stage renal disease) on dialysis N18.6; Z99.2 HIV infection, unspecified symptom status Z21 HIV symptom status: unspecified Other emphysema J43.8 COPD type: emphysema Emphysema type: other Sleep apnea, unspecified type G47.30 Sleep apnea type: unspecified type Noncompliance Z91.199
[2025-03-06] MEDS: pantoprazole 40 mg SDV IVP (20:48)
[2025-03-07] VITALS (288 sets, daily range): BP systolic 92–129; BP diastolic 63–100; PULSE 70–101; RESP 13–40; TEMP 36.3–36.7; O2SAT 73–98; BMI 22.3
[2025-03-07] MEDS: albumin 25 G/100 ML BAG 60 G IV ×2 (02:51→10:31)
[2025-03-07 04:34] LABS: Basophils % 0.8 %; Eosinophils # 0.1 10^3/uL (0.0-0.8); Eosinophils % 2.8 %; Hematocrit 26.3 % (37-53); Lymphocytes # 0.2 10^3/uL (0.8-4.8); Lymphocytes % 7.9 %; Mean Corpuscular HGB Conc 31.6 g/dL (30-55); Mean Corpuscular Hemoglobin 29.6 pg (27-33); Mean Corpuscular Volume 93.9 fl (82-101); Monocytes # 0.2 10^3/uL (0.2-0.9); Monocytes % 5.9 %; Neutrophils # 2.07 10^3/uL (1.8-7.7); Neutrophils % 81.8 %; Nucleated Red Blood Cells % 0 %; Red Cell Distribution Width 20.4 % (12.1-15.1); White Blood Count 2.53 10^3/uL (3.29-11.43)
[2025-03-07 05:00] LABS: Alanine Aminotransferase 6 U/L (0-41); Albumin Level 5.2 g/dL (3.5-5.2); Alkaline Phosphatase 78 U/L (40-130); Anion Gap 26.7 (5-19); Aspartate Amino Transferase 16 U/L (0-40); Blood Urea Nitrogen 54 mg/dL (6-20); Calcium 9.2 mg/dL (8.5-10.5); Carbon Dioxide 21 mmol/L (22-29); Chloride 96 mmol/L (98-107); Cortisol Random 12.75 ug/dL (2.47-19.5); Creatinine Clr Calc Pharmacy 16.1362; Globulin 2.6 g/dL (1.3-4.6); Glomerular Filtration Rate 13.2 mL/min (90-130); Glucose 74 mg/dL (65-115); Osmolality Calculated 301 mOsm/kg (285-295); Potassium 4.7 mmol/L (3.5-5.1); Sodium 139 mmol/L (136-145); Total Protein 7.8 g/dL (6.6-8.7)
[2025-03-07 05:04] LABS: Platelet Count 28 10^3/cmm (157-399); Slide Review Slide Review Perform
--- NOTE | 2025-03-07 05:12 | PC.NURSE ---
Lab called critical platelet count of 28 and critical creatinine of 5.8. Provider notified via [employer]. Expected findings and patient is set to have dialysis today. No new orders at this time.
[2025-03-07] MEDS: heparin, porcine 1,000 unit/mL INJ 10 mL 1000 UNIT IV (08:45)
[2025-03-07] MEDS: diphenhydrAMINE 50 mg/mL SDV 1mL 25 MG IVP (10:27)
[2025-03-07] MEDS: fluconazole 100 mg Tablet 200 MG PO (10:30)
[2025-03-07] MEDS: amiodarone 200 mg Tablet PO ×2 (10:30→17:03)
[2025-03-07] MEDS: midodrine 5 mg TABLET 10 MG PO ×3 (10:30→20:47)
[2025-03-07] MEDS: docusate sodium 100 mg Capsule PO ×2 (10:30→17:03)
[2025-03-07] MEDS: BIKTARVY 1 EACH PO (10:31)
--- NOTE | 2025-03-07 10:41 | P.PN_ITS ---
<Statement entered by Shila Lilly MD - 03/08/25 17:46> Patient was evaluated and cared for in conjunction with an advanced practice practitioner. I personally examined the patient and reviewed the chart and all pertinent data including imaging, telemetry, and laboratory results. I discussed the patient in detail with the advanced practice practitioner. Please see their note for complete H&P testing result and agreed upon plan of care for the patient. Subjective 2 Subjective: Patient stable. No major complaints this morning. He is getting dialysis. He is off of his Levophed. Blood pressure 112/88 with pulse of 85. No evidence of decompensated heart failure as patient is oxygenating well on room air. Vitals/I&O/Wt Last Vital Signs Temp 97.3 F L 03/07/25 09:17 Pulse 85 03/07/25 09:17 Resp 21 H 03/07/25 09:17 BP 112/88 03/07/25 09:17 Pulse Ox 92 03/07/25 08:04 O2 Del Method Room Air 03/07/25 08:04 O2 Flow Rate 4 03/04/25 23:00 FiO2 1 03/03/25 09:30 03/06/25 03/07/25 03/07/25 22:59 06:59 14:59 Intake Total 100 / 500 100 / 600 Output Total 100 / 100 Balance 100 / 500 0 / 500 Weight last 48 hrs Weight 146 lb 12.54 oz Weight 145 lb 3.2 oz Weight 145 lb 3.2 oz Physical Exam 2 Narrative: General: No apparent distress, healthy appearing, well nourished HENMT: normoceophalic Muskuloskeletal: Full ROM Respiratory: Normal respiratory effort, clear to auscultation bilaterally throughout all lung du, no use of accessory muscles Cardio: No JVD, regular rate, regular rhythm, S1 S2 normal, no murmurs Extremities: Full ROM, normal, normal capillary refill, no cyanosis or edema Neuro: Alert and oriented x4, no focal motor deficits Psych: Affect normal Skin: No rashes or lesions noted, no wounds Data 03/07/25 04:19 03/07/25 04:19 Micro: Microbiology 03/02/25 15:03 Gram Stain - Final Peritoneal Fluid Anaerobic Culture - Preliminary Body Fluid Culture - Final 03/04/25 11:22 Fungal Smear - Preliminary Sputum - Expectorated Sputum 03/03/25 00:16 Gram Stain - Final Sputum - Expectorated Sputum Sputum Culture - Final Leslye albicans A&P Assessment and plan (1) Cardiogenic shock: (2) Nonischemic cardiomyopathy: (3) Atrial fibrillation with rapid ventricular response: (4) Congestive heart failure due to cardiomyopathy: (5) Elevated troponin: (6) Pancytopenia: (7) Thrombocytopenia: (8) ESRD (end stage renal disease) on dialysis: (9) HIV (human immunodeficiency virus infection): (10) COPD (chronic obstructive pulmonary disease): (11) Sleep apnea: (12) Noncompliance: Plan Continue current management. Continue amiodarone 200 BIDx 1 week, then 200 mg once daily from then on. Patient is requiring midorine for blood pressure, so will hold of on antihypertensives for now. Continue to hold aspirin as platelet count is only 28. Overall, patient appears well compensated from a cardiovascular standpoint. PDMP PDMP Reviewed: Not Reviewed Attestations 2 Medical Necessity Statement*: Deferred to primary Coding Level of Care Code Acute Code for [facility] Fwd Diagnoses Cardiogenic shock R57.0 Nonischemic cardiomyopathy I42.8 Atrial fibrillation with rapid ventricular response I48.91 Congestive heart failure due to cardiomyopathy I50.9; I42.9 Elevated troponin R79.89 Pancytopenia D61.818 Thrombocytopenia D69.6 ESRD (end stage renal disease) on dialysis N18.6; Z99.2 HIV infection, unspecified symptom status Z21 HIV symptom status: unspecified Other emphysema J43.8 COPD type: emphysema Emphysema type: other Sleep apnea, unspecified type G47.30 Sleep apnea type: unspecified type Noncompliance Z91.199
--- NOTE | 2025-03-07 13:55 | PM.PN ---
Subjective Subjective: Infectious disease progress note No acute interim events Update recieved home health dept that MTB PCR negative x 1 and MTB smear negative x 2 from sputum . Patient to be taken off isolation given these results Medications: Reviewed: Yes Vitals/I&O/Wt Last Vital Signs Temp 97.3 F L 03/07/25 09:17 Pulse 85 03/07/25 09:17 Resp 21 H 03/07/25 09:17 BP 112/88 03/07/25 09:17 Pulse Ox 92 03/07/25 08:04 O2 Del Method Room Air 03/07/25 08:04 O2 Flow Rate 4 03/04/25 23:00 FiO2 1 03/03/25 09:30 03/06/25 03/07/25 03/07/25 22:59 06:59 14:59 Intake Total 100 / 500 100 / 600 Output Total 100 / 100 Balance 100 / 500 0 / 500 Weight last 48 hrs Weight 66.58 kg Weight 65.862 kg Weight 65.862 kg Physical Exam Narrative: General: No acute distress, AO x3, chronically ill appearing HEENT: PERRLA, pupils bilaterally equal and reactive, pallors not present Chest: Normal vesicular breath sounds, no added sounds, equal good air entry bilaterally CVS: S1-S2 regular, no murmurs, no tachycardia, no gallops, no rubs Abdomen: Soft, distended, non tender Neuro: No focal deficits, no facial deformity, AO x3, power 5/5 in all limbs Data 03/07/25 04:19 03/07/25 04:19 Micro: Microbiology 03/02/25 15:03 Gram Stain - Final Peritoneal Fluid Anaerobic Culture - Preliminary Body Fluid Culture - Final 03/04/25 11:22 Fungal Smear - Preliminary Sputum - Expectorated Sputum 03/03/25 00:16 Gram Stain - Final Sputum - Expectorated Sputum Sputum Culture - Final Leslye albicans A&P Assessment and plan (1) HIV (human immunodeficiency virus infection): Pateint with known HIV infection, has not been compliant with medications since at least one year VL now returned at 50, 100 requested HIV genotype pending to start Biktarvy 1 tab po daily today further recommendations based on cd4 count requested sputum PJP PCR pending negative serum cryptococcal antigen anticipate GGOs to be pulm edema however with leukopenia, anticipated low cd4 count, will need to evaluate for PJP. Pending serum Fungitell screen and PJP PCR from sputum he was previously on dapsone for ppx but has not taken it recently. (2) Pancytopenia: suspect may be related to HIV/AIDS pending cd4 count, pending tick panel (3) Cardiogenic shock: (4) Anasarca: likey related to renal vs cardiogenic cause (5) (QFT) QuantiFERON-TB test reaction without active tuberculosis: Indeterminate Quantiferon screen likely related to leukopenia, impaired immune response Not reliable in this setting for diagnosis or exclusion of TB disease or LTBI at this point if undergoing paracentesis today, please add on mycobacterial culture in addition to fluid analysis and bacterial cx. Health dept contacted for rapid TB rule out- requested sputum MTB PCR and cx at [facility] lab in addition to specimen sent to [facility] as TAT at [facility] expected to be 7-10 days. Unfortunately health dept cannot run AFB cx or PCR on peritoneal fluid per discussion with health dept nurse. (6) Syphilis: history of treated syphilis currently RPR negative awaiting FTA-ABS (7) AIDS: Plan 03/04/25: Care plan discussed with hospitalist. CD4 count returned undetectable due to severe lymphopenia. Start azithromycin 1500 weekly MAC ppx. Though patient is resuming HAART, he has a h/o non complaince therefore starting MAC ppx due to unreliable HAART intake. Start Bactrim DS three times per week PJP ppx. PJP PCR is pending. elevated BDG ~ 190 , sputum cx showing budding yeast on prelim gram stain. Per discussion with [facility], this is more likely leslye, less likely crytptoccocus. We do not have the ability to perform Shelby ink staining in our micro lab. Requesting fungal cx send out to [facility]. Start Fluconazole 400mg x 1 followed by 200mg renally dosed fluconazole for presumptive cryptoccocal coverage while awaiting cx from outside lab. Crytococcal ag thus far negative. Since diagnosis of cryptoccus is suspected and not confirmed at this point, okay to continue HAART along side fluconazole until confirmation attained. Awaiting return of MTB PCR sputum from health dept. Can d/c Zosyn Will follow 03/07/25: See from the health department. Mycobacterial PCR negative x 1 from sputum. Mycobacterial smear MTB PCR negative x 2 from sputum. Additionally mycobacterial smear negative x 1 from [facility] mycobacterial culture negative from peritoneal fluid. No concern for active clinical TB at this time.. Will repeat indeterminate QuantiFERON screen in 3 months once CD4 count has recovered. Currently indeterminate CD4 is most likely related to lymphopenia. Sputum culture revealed yeast to be Leslye albicans. Not cryptococcus. CD4 count less than 50. Patient's compliance with card is questionable as outpatient therefore will prefer to add back prophylaxis with azithromycin 1200 mg p.o. once weekly. Continue Biktarvy 1 tab p.o. daily for HIV. Viral load check in 1 months. Patient has been set up with diffusing field and maintenance of his home medications Bactrim prophylaxis Bactrim DS 3 times a week for pneumocystis prophylaxis. This will additionally provide toxoplasma CD4 count to be rechecked in 3 months. Patient encouraged compliance. Overall clinical picture i sconsistent with HIV /AIDS. Continue fluconazole 100mh p.o. daily for Leslye albicans. This documentation was created by [employer] food product inspector software. Every effort was made to ensure accuracy of food product inspector. Any obvious errors or omissions should be clarified with the author of the document. PDMP PDMP Reviewed: Not Reviewed Attestations Medical Necessity Statement*: per admitting Coding Level of Care Code Acute Code for Chg Fwd Diagnoses HIV infection, unspecified symptom status Z21 HIV symptom status: unspecified Pancytopenia D61.818 Cardiogenic shock R57.0 Anasarca R60.1 (QFT) QuantiFERON-TB test reaction without active tuberculosis R76.12 Syphilis A53.9 AIDS B20
[2025-03-07 14:04] LABS: P. Jirovecii DNA QL PCR Detected (Not Detected); P. Jirovecii DNA QL PCR Source Sputum
--- NOTE | 2025-03-07 14:29 | PC.HD ---
Post HD AVF had prolonged bleeding, pressure held [id number].
--- NOTE | 2025-03-07 15:51 | PC.SOCIAL ---
IMM Update pg 2 of IMM updated and reviewed w/ patient. Copy provided and copy dated, initialed and placed in chart.
--- NOTE | 2025-03-07 16:29 | P.PN_ITS ---
Subjective 2 Subjective: Hospital course, labs appreciated. Today morning examination patient is postdialysis. More awake and alert. More comfortable remains on room air. Hemodynamically stable. Not on pressors. Medications: Reviewed: Yes Medication Review Details: Current drips Levophed Vitals/I&O/Wt Last Vital Signs Temp 97.3 F L 03/07/25 14:26 Pulse 70 03/07/25 14:26 Resp 16 03/07/25 14:26 BP 97/71 03/07/25 14:26 Pulse Ox 92 03/07/25 08:04 O2 Del Method Room Air 03/07/25 08:04 O2 Flow Rate 4 03/04/25 23:00 FiO2 1 03/03/25 09:30 03/07/25 03/07/25 03/07/25 06:59 14:59 22:59 Intake Total 100 / 600 500 / 500 Output Total 100 / 100 2259 / 2259 Balance 0 / 500 -1759 / -1759 Weight last 48 hrs Weight 66.7 kg Weight 66.58 kg Weight 65.862 kg Weight 65.862 kg Physical Exam 2 Narrative: General: No acute distress, AO x3, sick appearing, fistula present in the left arm HEENT: PERRLA, pupils bilaterally equal and reactive Chest: Normal vesicular breath sounds, no added sounds, equal good air entry bilaterally CVS: S1-S2 regular, pansystolic murmur at apex tachycardia, no gallops, no rubs Abdomen: Soft, nontender, no organomegaly, bowel sounds present Neuro: No focal deficits, no facial deformity, AO x3, power 5/5 in all limbs Data 03/07/25 04:19 03/07/25 04:19 Micro: Microbiology 03/02/25 15:03 Gram Stain - Final Peritoneal Fluid Anaerobic Culture - Preliminary Body Fluid Culture - Final 03/04/25 11:22 Fungal Smear - Preliminary Sputum - Expectorated Sputum 03/03/25 00:16 Gram Stain - Final Sputum - Expectorated Sputum Sputum Culture - Final Leslye albicans A&P Assessment and plan (1) AIDS: (2) Atrial fibrillation with rapid ventricular response: Currently rate controlled. Continue with amiodarone 200 mg twice daily for overall 7 days followed by 200 mg daily. Not on anticoagulation given severe thrombocytopenia. (3) Congestive heart failure due to cardiomyopathy: (4) Nonischemic cardiomyopathy: (5) HIV (human immunodeficiency virus infection): Pateint with known HIV infection, has not been compliant with medications since at least one year VL now returned at 50,100 Rquested HIV genotype pending Continue with Biktarvy 1 tab po daily. If any concerns for opportunistic disease with most likely need to hold Biktarvy. Appreciate a very low cd4 count Positive PJP PCR. negative serum cryptococcal antigen Anticipate GGOs to be pulm edema however with leukopenia, anticipated low cd4 count, will need to evaluate for PJP. Positive Fungitell screen and PJP PCR from sputum. He was previously on dapsone for ppx but has not taken it recently. (6) ESRD (end stage renal disease) on dialysis: Nephrology on board. Continue with dialysis as per nephrology. (7) Pneumocystis jiroveci pneumonia: (8) Pancytopenia: Stable. (9) Anasarca: likey related to renal vs cardiogenic cause (10) (QFT) QuantiFERON-TB test reaction without active tuberculosis: Mycobacterial PCR negative x 1 from sputum. Mycobacterial smear MTB PCR negative x 2 from sputum. Additionally mycobacterial smear negative x 1 from [facility] mycobacterial culture negative from peritoneal fluid. No concern for active clinical TB at this time.. Will repeat indeterminate QuantiFERON screen in 3 months once CD4 count has recovered. Currently indeterminate CD4 is most likely related to lymphopenia. (11) Syphilis: history of treated syphilis Currently RPR negative. Will most likely need to repeat RPR once better CD4 count on treatment for HIV. Positive FTA-ABS (12) Elevated troponin: (13) Thrombocytopenia: (14) COPD (chronic obstructive pulmonary disease): (15) Cardiogenic shock: (16) Sleep apnea: (17) Noncompliance: Plan 39-year-old gentleman past medical history of end-stage renal disease on hemodialysis Friday, Friday, Friday, congestive systolic heart failure, HIV not currently on treatment presents to the ER with difficulty in breathing and palpitations along with some chest pain. Cardiogenic shock: Resolved. Maintain mean artery pressure 65. Off Levophed and dobutamine. Appreciate cortisol level. Continue with midodrine 10 mg 3 times daily. Stop IV albumin. Acute decompensated chronic systolic heart failure: Currently compensated. Repeat echocardiogram showed EF of around 30% with grade 2 diastolic dysfunction, global LV hypokinesia, moderately dilated RV. Severely increased RA pressure, mild AAS, moderate to severe TR. Strict and proper charting, daily weights. Not on any beta-blockers requiring midodrine for blood pressures. Not on STAR/Arni for the same reason patient Shortness of breath: Most likely in setting of congestive heart failure. Given pancytopenia with not being on treatment for HIV cannot rule out infectious source. PJP PCR positive. Sputum culture growing yeast. For now appreciated as Leslye albicans. Have requested further identification to rule out cryptococcus. Continue with fluconazole 200 mg daily for now. Will switch to PJP treatment for Bactrim. Will check stat ABG. Depending on the AA gradient will decide about steroids. HIV/AIDS: Low CD4 count. High HIV RNA count. Concern for superimposed opportunistic infection with PJP. Started on Biktarvy along with prophylactic treatment with azithromycin 15 mg weekly, Bactrim DS 1 tablet every 48 hours. For now continue with azithromycin at current dose. Will switch to treatment dose Bactrim. Hold off on Biktarvy as patient is being treated for opportunistic infection for at least 2 weeks. Pancytopenia/thrombocytopenia: For now has remained stable. Hemoglobin stable. Platelet count at 28,000. Did require platelet transfusion during hospitalization for paracentesis. Full code Renal dialysis diet Protonix for PUD prophylaxis SCD for DVT prophylaxis Transfer to [facility]. PDMP PDMP Reviewed: Not Reviewed Attestations 2 Medical Necessity Statement*: Requested hospitalization for management of shortness of breath in setting of PJP pneumonia, Leslye pneumonia in a patient with acute decompensated chronic systolic heart failure, resolving cardiogenic shock, end-stage renal disease on hemodialysis, AIDS Diagnoses AIDS B20 Atrial fibrillation with rapid ventricular response I48.91 Congestive heart failure due to cardiomyopathy I50.9; I42.9 Nonischemic cardiomyopathy I42.8 HIV infection, unspecified symptom status Z21 HIV symptom status: unspecified ESRD (end stage renal disease) on dialysis N18.6; Z99.2 Pneumocystis jiroveci pneumonia B59 Pancytopenia D61.818 Anasarca R60.1 (QFT) QuantiFERON-TB test reaction without active tuberculosis R76.12 Syphilis A53.9 Elevated troponin R79.89 Thrombocytopenia D69.6 Other emphysema J43.8 COPD type: emphysema Emphysema type: other Cardiogenic shock R57.0 Sleep apnea, unspecified type G47.30 Sleep apnea type: unspecified type Noncompliance Z91.199
[2025-03-07 19:16] LABS: Blood Gas Operator Identificat JDB; Blood Gas Sample Site Brachial, right; Blood Gas Sample Type Arterial; Ionized Calcium Level - ABG 1.2 mmol/L (1.1-1.4); Oxygen Device ROOM AIR; Potassium Level - ABG 4.1 mmol/L (3.5-5.0)
[2025-03-07 19:18] LABS: ABG PCO2 41.5 mmHg (35-45); ABG PH Result 7.42 (7.35-7.45); Alveolar-Arterial Oxygen Gradi 5.4 mmHg (5-10); Arterial Blood Gas Hematocrit 27.5 % (42-52); Carboxyhemoglobin 2.4 %THgb (0.4-20.1); HCO3 ABG 26.8 mmol/L (22-26); Methemoglobin 1.1 % (0.4-1.5); Oxygen Saturation ABG 86.1; PO2 ABG 55.9 mmHg (80.0-100.0); PO2 FiO2 Ratio Arterial Blood 266
[2025-03-07] MEDS: pantoprazole 40 mg SDV IVP (20:46)
[2025-03-07] MEDS: oxyCODONE 5 mg IR Tab/Cap PO (20:48)
[2025-03-07] MEDS: sulfamethoxazole-trimeth DS 160-800 mg Tablet 2 TAB PO (20:48)
[2025-03-08] VITALS (165 sets, daily range): BP systolic 99–132; BP diastolic 76–98; PULSE 74–106; RESP 10–37; TEMP 36.3–36.6; O2SAT 90–99; BMI 22.2
[2025-03-08 04:44] LABS: Basophils % 0.7 %; Eosinophils # 0.1 10^3/uL (0.0-0.8); Eosinophils % 3.6 %; Hematocrit 25.2 % (37-53); Lymphocytes # 0.2 10^3/uL (0.8-4.8); Lymphocytes % 8.2 %; Mean Corpuscular HGB Conc 31.3 g/dL (30-55); Mean Corpuscular Hemoglobin 29.8 pg (27-33); Mean Corpuscular Volume 95.1 fl (82-101); Monocytes # 0.2 10^3/uL (0.2-0.9); Monocytes % 8.6 %; Neutrophils # 2.19 10^3/uL (1.8-7.7); Neutrophils % 78.2 %; Nucleated Red Blood Cells % 0.7 %; Red Blood Count 2.65 10^6/uL (3.85-5.65); Red Cell Distribution Width 20.5 % (12.1-15.1)
[2025-03-08 04:57] LABS: Alanine Aminotransferase 6 U/L (0-41); Albumin Level 4.8 g/dL (3.5-5.2); Alkaline Phosphatase 81 U/L (40-130); Anion Gap 21.4 (5-19); Aspartate Amino Transferase 18 U/L (0-40); Blood Urea Nitrogen 40 mg/dL (6-20); Calcium 9.7 mg/dL (8.5-10.5); Carbon Dioxide 26 mmol/L (22-29); Chloride 97 mmol/L (98-107); Creatinine Clr Calc Pharmacy 20.9012; Globulin 3.2 g/dL (1.3-4.6); Glomerular Filtration Rate 17.7 mL/min (90-130); Glucose 71 mg/dL (65-115); Osmolality Calculated 298 mOsm/kg (285-295); Potassium 4.4 mmol/L (3.5-5.1); Sodium 140 mmol/L (136-145); Total Bilirubin 1.1 mg/dL (0.15-1.2)
[2025-03-08 05:21] LABS: Slide Review Slide Review Perform
[2025-03-08 05:22] LABS: Platelet Count 26 10^3/cmm (157-399)
--- NOTE | 2025-03-08 08:20 | P.DS_ITS ---
Discharge Providers Date of Admission: 02/26/25 19:27 Date of Discharge: March 08, 2025 Attending Provider at Admission: Luis Beatty MD Attending Provider at Discharge: Luis Beatty MD Primary Care Provider: Rebecca Montiel MD Diagnoses at Discharge Discharge Diagnosis (1) AIDS: Status: Acute (2) Atrial fibrillation with rapid ventricular response: Status: Acute (3) Congestive heart failure due to cardiomyopathy: Status: Acute (4) Nonischemic cardiomyopathy: Status: Acute (5) HIV (human immunodeficiency virus infection): Status: Acute Qualifiers: HIV symptom status: unspecified Qualified Code(s): Z21 - Asymptomatic human immunodeficiency virus [HIV] infection status (6) ESRD (end stage renal disease) on dialysis: Status: Acute (7) Pneumocystis jiroveci pneumonia: Status: Acute (8) Pancytopenia: Status: Acute (9) Anasarca: Status: Acute (10) (QFT) QuantiFERON-TB test reaction without active tuberculosis: Status: Acute (11) Syphilis: Status: Acute (12) Elevated troponin: Status: Acute (13) Thrombocytopenia: Status: Acute (14) COPD (chronic obstructive pulmonary disease): Status: Acute Qualifiers: COPD type: emphysema Emphysema type: other Qualified Code(s): J43.8 - Other emphysema (15) Cardiogenic shock: Status: Acute (16) Sleep apnea: Status: Acute Qualifiers: Sleep apnea type: unspecified type Qualified Code(s): G47.30 - Sleep apnea, unspecified (17) Noncompliance: Status: Acute Reason for Visit Reason for Visit: CP Hospital Course Hospital Course Vivek Harden is a 39 year old male with past medical history of end-stage renal disease on hemodialysis Friday, Friday, Friday, congestive heart failure with last known EF of 35% back from 2022, A-fib with RVR, HIV not currently on treatment at least for last 6 months as per the patient, with last dialysis on Friday. He states since Friday after dialysis he continued to have difficulty in breathing. He usually his breathing would improve after dialysis but this time he continued to have difficulty in breathing. Today he started having difficulty with chest pain and palpitations which continued to get worse hence he called the EMS. EMS found him to be in A-fib with RVR gave him a push of Cardizem and brought him to the ER. In the ER when seen he was on Cardizem drip. Blood pressures were only recordable manually to 90 systolic, peripheries were cold, saturation not picked up on the monitor. Patient was awake, alert but drowsy. Patient states he has been having difficulty in breathing, palpitations and chest pain since today morning. Difficulty in breathing has been getting worse since Friday. States he has not taken his HIV medications at least for the last 6 months. Has not followed up with his providers for over a year. Patient was admitted to the hospital further evaluation and management of cardiogenic shock, atrial fibrillation with RVR along with acute systolic congestive heart failure. He was started on vasopressor therapy with Levophed and dobutamine. Nephrology was consulted. He responded well to the treatment and gradually his symptoms for heart failure improved. He was started on amiodarone drip for A-fib which resolved as well. Eventually patient's cardiogenic shock improved and he has been off Levophed and dobutamine both on and off dialysis for last 3 to 4 days. His blood pressures are stable on midodrine 10 mg 3 times daily. During hospitalization at first there was a concern for septic shock as well for which he was started on broad-spectrum IV antibiotics though his blood cultures, fluid culture to rule out SBP remain negative. Sputum culture is positive for yeast which is thought to be Leslye albicans though cryptococcus studies pending. He was started on Biktarvy during hospitalization. On further review it seems patient has been noncompliant to his medications for HIV. His viral load was elevated and CD4 count was nondetectable. He was found to be positive for PCP PCR. Given both of the above is a concern for AIDS. He was started on treatment for PCP PCR with Bactrim 2 tablets twice daily along with steroid taper. He is to restart Biktarvy in 2 weeks from now. Patient remained persistently pancytopenic which for now we will start in setting of HIV though he should follow-up with hematology as an outpatient. During hospitalization he did receive 2 units of platelet transfusion around paracentesis and management of PRBC transfusion. He is also to take other prophylactic medications as below including azithromycin and fluconazole. He is to follow-up with infectious disease clinic in 2 weeks on set appointment. Physical Exam Narrative: General: No acute distress, AO x3, sick appearing, fistula present in the left arm HEENT: PERRLA, pupils bilaterally equal and reactive Chest: Normal vesicular breath sounds, no added sounds, equal good air entry bilaterally CVS: S1-S2 regular, pansystolic murmur at apex tachycardia, no gallops, no rubs Abdomen: Soft, nontender, no organomegaly, bowel sounds present Neuro: No focal deficits, no facial deformity, AO x3, power 5/5 in all limbs Discharge Data Studies Completed and Pending Completed Studies During Hospitalization Category Date Time Status CT chest abdpel w/*[id number] Stat Cat Scan 02/26/25 19:47 Completed XR chest 1V [id number] Stat Exams 02/26/25 15:36 Completed XR chest 1V portable [id number] Routine Exams 02/26/25 20:12 [place] [id number] Routine Ultrasound 03/02/25 17:09 Completed CV. echo complete* [id number] Routine Ultrasound 02/27/25 19:46 Com[place] paracent[place]d w [id number] Routine Ultrasound 03/02/25 08:04 Completed Pending at discharge Category Date Time Status Amylase, Peritoneal Fluid Routine Lab 03/02/25 15:03 Received Anaerobic Culture Routine Lab 03/02/25 15:03 Results Blastomyces AB Panel CF and ID QAM Lab 03/05/25 02:48 Received Body Fluid Culture & GS Routine Lab 03/02/25 15:03 Results Coccidioides AB CF Serum QAM Lab 03/05/25 02:48 Received Drug Screen, Urine Routine Lab 02/26/25 22:28 Uncollected Fibrinogen Degradation Product Routine Lab 02/27/25 12:18 Received Fungal Culture not HR/SK/BL Stat Lab 03/04/25 11:22 Results Histoplasma Galactomannan Ag QAM Lab 03/05/25 06:00 Ordered Histoplasma Quantitative AG Routine Lab 03/05/25 06:00 Ordered Miscellaneous Test Routine Lab 02/27/25 19:21 Received Miscellaneous Test Routine Lab 03/02/25 19:30 Received Miscellaneous Test Routine Lab 03/03/25 10:21 Received Mycobacteria, Culture w/Fluor Routine Lab 03/02/25 12:20 Results Mycobacteria, Culture w/Fluor Routine Lab 03/02/25 15:03 Results Cytology [PTH] Routine Pth 03/02/25 08:33 Received Radiology Impressions Chest/Abdomen/Pelvis CT 02/26/25 19:47 IMPRESSION: 1. Patchy bilateral ground-glass airspace opacities suggestive of alveolar edema. 2. Cardiomegaly. 3. Azygos vein is somewhat dilated, findings discontinuation of the inferior vena cava distal to the inferior vena cava filter. 4. Anasarca. IMPRESSION: 1. Negative for focal acute inflammatory process in abdomen or pelvis. 2. Large amount of ascites in the abdomen. 3. Reflux of contrast into the intrahepatic veins and inferior vena cava suggestive of congestive heart failure. 4. Bilateral renal cysts, negative for follow-up advised. 5. Chronic atrophy of the kidneys bilaterally. 6. Bilateral nonobstructing renal calyceal stones. 7. Inferior vena cava filter seen. The inferior vena cava is not visualized distal to the inferior vena cava suggestive of absence or chronic occlusion. COMMENTS: 1. For patients with an IVC filter, recommend assessment for a management plan for the patient's IVC filter. If there is no established management plan, recommend referral to an interventional clinician on a nonemergent basis for evaluation. 2. Consistent with the [employer]'s Incidental Findings Committee white paper (J Am Deb Radiol 2018): Any incidental renal lesion less than 1 cm or classified as too small to characterize, or any incidental cystic renal lesion characterized as simple-appearing, is likely benign. No follow-up imaging is recommended for these lesions per consensus recommendations based on imaging criteria. Chest X-Ray 02/26/25 20:12 IMPRESSION: 1. Cardiomegaly. 2. Pacer device. Paracentesis Ultrasound 03/02/25 08:04 IMPRESSION: Uncomplicated paracentesis yielding 5000 ml of peritoneal fluid. Duplex Scan Lower Extremity Artery 03/02/25 17:09 IMPRESSION: 1. Patent bilateral lower extremity arterial systems. There is diffuse calcific atherosclerotic plaque which is most prominent in the femoral arteries bilaterally, but no focal stenosis. Normal multiphasic waveforms are demonstrated throughout. 2. Elevated JOHN is compatible with atherosclerosis. Echocardiogram: CONCLUSIONS Moderately increased left ventricular cavity size. Severely decreased left ventricular systolic function. Left ventricular ejection fraction is estimated at 32 %. Global left ventricular hypokinesis. Moderately increased right ventricular size. There appeared to be bowing of the interatrial septum from right to left. Severely increased right atrial size. Moderately increased left atrial size. Thickened mitral valve. No mitral valve stenosis. Moderate- severe mitral valve regurgitation. Moderate aortic valve calcification. Mild aortic valve stenosis, mean gradient 8.5 mmHg, ANTONIO 1.5 cm squared. Trace aortic valve regurgitation. [id number] tricuspid valve regurgitation. Mild pulmonary valve regurgitation. Shila Lilly MD (Electronically Signed) Final Date: 28 February 2025 Microbiology 03/02/25 15:03 Peritoneal Fluid Gram Stain - Final 03/02/25 15:03 Peritoneal Fluid Anaerobic Culture - Preliminary 03/02/25 15:03 Peritoneal Fluid Body Fluid Culture - Final 03/04/25 11:22 Sputum - Expectorated Sputum Fungal Smear - Preliminary 03/03/25 00:16 Sputum - Expectorated Sputum Gram Stain - Final 03/03/25 00:16 Sputum - Expectorated Sputum Sputum Culture - Final Leslye albicans 03/02/25 12:20 Sputum - Expectorated Sputum Mycobacterial Smear - Preliminary 03/02/25 15:03 Body Fluids - Peritoneal Mycobacterial Smear - Preliminary 02/26/25 22:30 Blood Blood Culture - Final NO GROWTH AFTER 5 DAYS 02/26/25 22:25 Blood Blood Culture - Final NO GROWTH AFTER 5 DAYS 03/02/25 04:20 Blood Cryptococcal Antigen (Serum) - Final Laboratory Results WBC 2.80 10^3/uL (3.29-11.43) L 03/08/25 04:24 RBC 2.65 10^6/uL (3.85-5.65) L 03/08/25 04:24 Hgb 7.90 g/dL (11.27-16.99) L 03/08/25 04:24 Hct 25.2 % (37-53) L 03/08/25 04:24 MCV 95.1 fl (82-101) 03/08/25 04:24 MCH 29.8 pg (27-33) 03/08/25 04:24 MCHC 31.3 g/dL (30-55) 03/08/25 04:24 RDW 20.5 % (12.1-15.1) H 03/08/25 04:24 Plt Count 26 10^3/cmm (157-399) L* 03/08/25 04:24 MPV Not Reportable 03/08/25 04:24 Neut % (Auto) 78.2 % 03/08/25 04:24 Lymph % (Auto) 8.2 % 03/08/25 04:24 Stone % (Auto) 8.6 % 03/08/25 04:24 Eos % (Auto) 3.6 % 03/08/25 04:24 Baso % (Auto) 0.7 % 03/08/25 04:24 Neut # (Auto) 2.19 10^3/uL (1.8-7.7) 03/08/25 04:24 Lymph # (Auto) 0.2 10^3/uL (0.8-4.8) L 03/08/25 04:24 Stone # (Auto) 0.2 10^3/uL (0.2-0.9) 03/08/25 04:24 Eos # (Auto) 0.1 10^3/uL (0.0-0.8) 03/08/25 04:24 Baso # (Auto) 0.0 10^3/uL (0.0-0.1) 03/08/25 04:24 Absolute Lymphs (auto) Not Reportable 02/28/25 06:02 Nucleated RBC % (auto) 0.7 % 03/08/25 04:24 Nucleated RBCs # 0.0 /100WBC 03/08/25 04:24 Differential Comment Yes 03/02/25 15:03 PT 17.10 SECONDS (12.1-14.9) H 03/01/25 02:00 INR 1.30 (0.8-1.2) H 03/01/25 02:00 APTT 36.6 SECONDS (23.9-36.7) 03/01/25 02:00 Fibrinogen 189 mg/dL (174-498) 02/27/25 12:05 D-Dimer 9.16 ug/mLFEU (0-0.59) H 02/27/25 12:05 Specimen Type Arterial 03/07/25 18:58 Sample Site Brachial, right 03/07/25 18:58 ABG pH 7.42 (7.35-7.45) 03/07/25 18:58 ABG pCO2 41.5 mmHg (35-45) 03/07/25 18:58 ABG pO2 55.9 mmHg (80.0-100.0) L 03/07/25 18:58 ABG PO2/FiO2 Ratio 266 03/07/25 18:58 ABG HCO3 26.8 mmol/L (22-26) H 03/07/25 18:58 ABG O2 Saturation 86.1 03/07/25 18:58 ABG Base Excess 2.0 mmol/L (-2.0-2.0) 03/07/25 18:58 Wilfred Test N/a 03/07/25 18:58 A-a O2 Gradient 5.4 mmHg (5-10) 03/07/25 18:58 Hematocrit 27.5 % (42-52) L 03/07/25 18:58 Hgb O2 Saturation 83.0 % (95-100) L 03/07/25 18:58 Carboxyhemoglobin 2.4 %THgb (0.4-20.1) 03/07/25 18:58 Methemoglobin 1.1 % (0.4-1.5) 03/07/25 18:58 Total Hemoglobin 9.0 g/dL (14-18) L 03/07/25 18:58 Sodium 140.0 mmol/L (131-143) 03/07/25 18:58 Potassium 4.1 mmol/L (3.5-5.0) 03/07/25 18:58 Glucose 98.0 mg/dL (70-115) 03/07/25 18:58 Ionized Calcium 1.2 mmol/L (1.1-1.4) 03/07/25 18:58 O2 Delivery Device Room air 03/07/25 18:58 O2 Liters/Min 3.0 % 02/26/25 17:53 FiO2 21.0 % 03/07/25 18:58 Shipping And Receiving Operator ID [id number] 03/07/25 18:58 Sodium 140 mmol/L (136-145) 03/08/25 04:24 Potassium 4.4 mmol/L (3.5-5.1) 03/08/25 04:24 Chloride 97 mmol/L (98-107) L 03/08/25 04:24 Carbon Dioxide 26 mmol/L (22-29) 03/08/25 04:24 Anion Gap 21.4 (5-19) H 03/08/25 04:24 BUN 40 mg/dL (6-20) H 03/08/25 04:24 Creatinine 4.5 mg/dL (0.7-1.2) H 03/08/25 04:24 GFR Calculation 17.7 mL/min (90-130) L 03/08/25 04:24 Glucose 71 mg/dL (65-115) 03/08/25 04:24 Estimat Average Glucose 94 02/26/25 16:03 Hemoglobin A1c 4.9 % (4.0-6.0) 02/26/25 16:03 Calculated Osmolality 298 mOsm/kg (285-295) H 03/08/25 04:24 Lactic Acid 2.3 mmol/L (0.5-2.2) H 02/28/25 06:02 Lactic Acid (Sepsis) 2.7 mmol/L (0.5-2.2) H 02/28/25 09:42 Calcium 9.7 mg/dL (8.5-10.5) 03/08/25 04:24 Phosphorus 4.8 mg/dL (2.5-4.5) H 03/04/25 03:46 Magnesium 2.1 mg/dL (1.7-2.3) 03/01/25 02:00 Iron 121 ug/dL (59-158) 02/26/25 16:03 TIBC 142 mcg/dl 02/26/25 16:03 % Saturation 85.2 % (20-50) H 02/26/25 16:03 Unsat Iron Binding 21 ug/dL (112-347) L 02/26/25 16:03 Total Bilirubin 1.1 mg/dL (0.15-1.2) 03/08/25 04:24 AST 18 U/L (0-40) 03/08/25 04:24 ALT 6 U/L (0-41) 03/08/25 04:24 Alkaline Phosphatase 81 U/L (40-130) 03/08/25 04:24 Lactate Dehydrogenase 230 U/L (135-225) H 02/26/25 16:03 Troponin T Baseline 214 ng/L (0-15) H* 02/28/25 13:03 Troponin T 120 Minute 213.5 ng/L (0-15) H 02/28/25 15:11 Delta Troponin T -0.5 ABS# (0-10) L 02/28/25 15:11 Troponin T Hi Sens 6Hr 201.6 ng/L (0-15) H 02/28/25 19:04 Troponin T Hi Sens 6Hr Delta -12.4 ng/L (0-12) L 02/28/25 19:04 Total Protein 8.0 g/dL (6.6-8.7) 03/08/25 04:24 Albumin 4.8 g/dL (3.5-5.2) 03/08/25 04:24 Globulin 3.2 g/dL (1.3-4.6) 03/08/25 04:24 Triglycerides 60 mg/dL (0-150) 02/27/25 04:31 Cholesterol 64 mg/dL (0-200) 02/27/25 04:31 LDL Cholesterol, Calc 15 mg/dL (50-129) L 02/27/25 04:31 HDL Cholesterol 37 mg/dL (60-100) L 02/27/25 04:31 LDL/HDL Ratio 0.41 RATIO (0.00-3.22) 02/27/25 04:31 Cholesterol/HDL Ratio 1.73 mg/dL (1.0-5.00) 02/27/25 04:31 Vitamin B12 > 2000 pg/mL (232-1245) H 02/26/25 16:03 Folate 8.1 ng/mL (4.5-32.2) 02/27/25 04:31 Procalcitonin 7.94 ng/mL (0-0.5) H 02/27/25 04:31 TSH 8.08 uIU/mL (0.27-4.20) H 02/26/25 16:03 Random Cortisol 12.75 ug/dL (2.47-19.5) 03/07/25 04:19 Fluid Color Lida 03/02/25 15:03 Fluid Appearance Cloudy 03/02/25 15:03 Fluid Specific Grav 1.034 03/02/25 15:03 Fluid pH 8.0 03/02/25 15:03 Fluid WBC 205 /uL 03/02/25 15:03 Fluid RBC 1.000 10^3/uL 03/02/25 15:03 Fld Polynuclear WBCs # 0.110 03/02/25 15:03 Fld Polynuclear WBCs % 53.700 % 03/02/25 15:03 Fl Mononucl WBCs #(Auto) 0.095 03/02/25 15:03 Fl Mononuclear % Auto 46.300 % 03/02/25 15:03 Fld Crystal Laterality Ascites fluid 03/02/25 15:03 Fluid Glucose 81.0 mg/dL 03/02/25 15:03 Fluid Total Protein 5.7 g/dL 03/02/25 15:03 Fluid Albumin 2.7 g/dL 03/02/25 15:03 Fluid LDH 114 U/L 03/02/25 15:03 Fluid Alk Phosphatase 46 IU/L 03/02/25 15:03 Fluid Cholesterol 42 mg/dL (0-200) 03/02/25 15:03 Fluid Triglycerides 37 mg/dL (0-150) 03/02/25 15:03 Fluid Uric Acid 3 mg/dL 03/02/25 15:03 Nasal MRSA (PCR) Not detected (Negative) 02/27/25 00:00 Lymphocyte Subset Cmmnt Not Reportable 02/28/25 06:02 % CD3/CD4 Cells TNP 02/28/25 06:02 Absolute CD4 Count Not Reportable 02/28/25 06:02 CD4/CD8 Ratio Not Reportable 02/28/25 06:02 % CD8 Cells Not Reportable 02/28/25 06:02 Absolute CD8 Count Not Reportable 02/28/25 06:02 RPR w/Rflx to Titer Non-reactive (NON-REACTIVE) 02/26/25 04:31 T.pallidum Ab (FTA-ABS) Reactive minimal A 02/26/25 04:31 Adenovirus (PCR) Not detected (NOT DETECT) 02/27/25 11:00 Lyme Ab (Western Blot) <0.90 index 02/28/25 06:02 C. pneumoniae DNA (PCR) Not detected (NOT DETECT) 02/27/25 11:00 Coronavirus 229E (PCR) Not detected (NOT DETECT) 02/27/25 11:00 E. chaffeensis IgG Ab <1:64 02/28/25 06:02 E. chaffeensis IgM Ab <1:20 02/28/25 06:02 E. chaffeensis Interp See note 02/28/25 06:02 E. chaffeensis Comment Not Reportable 02/28/25 06:02 Hepatitis A IgM Ab Non-reactive (Nonreactive) 02/26/25 16:03 Hep Bs Antigen Non-reactive (Nonreactive) 02/26/25 16:03 Hep Bs Antibody 9.4 (11.5-1000) L 02/27/25 06:52 Hep B Core Total Ab Non-reactive (Nonreactive) 02/26/25 16:03 Hepatitis C Antibody Non-reactive (Nonreactive) 02/26/25 16:03 HIV-1 RNA copies/mL 4.70 (NOT DETECTED) H 02/26/25 04:31 HIV-1 RNA (PCR) log10 10386 copies/mL (NOT DETECTED) H 02/26/25 04:31 Human Metapneumovir PCR Not detected (NOT DETECT) 02/27/25 11:00 Influenza A (H1) PCR Not detected (NOT DETECT) 02/27/25 11:00 Influ A (H1/09) PCR Not detected (NOT DETECT) 02/27/25 11:00 Influenza A (H3) PCR Not detected (NOT DETECT) 02/27/25 11:00 Influenza Type A (PCR) Not detected (NOT DETECT) 02/27/25 11:00 Influenza Type B (PCR) Not detected (NOT DETECT) 02/27/25 11:00 M. pneumoniae (PCR) Not detected (NOT DETECT) 02/27/25 11:00 Parainfluenza 1 (PCR) Not detected (NOT DETECT) 02/27/25 11:00 Parainfluenza 2 (PCR) Not detected (NOT DETECT) 02/27/25 11:00 Parainfluenza 3 (PCR) Not detected (NOT DETECT) 02/27/25 11:00 Parainfluenza 4 (PCR) Not detected (NOT DETECT) 02/27/25 11:00 Pneumocystis Source Cancelled 03/02/25 12:20 Pneumocystis Source Sputum 03/02/25 12:20 Pneumocyst jirovecii PCR Cancelled 03/02/25 12:20 Pneumocyst jirovecii PCR Detected (Not Detected) A 03/02/25 12:20 RSV Type A (PCR) Not detected (NOT DETECT) 02/27/25 11:00 RSV Type B (PCR) Not detected (NOT DETECT) 02/27/25 11:00 Entero/Rhino (PCR) Not detected (NOT DETECT) 02/27/25 11:00 Rickettsia IgG Ab Not detected 02/28/25 06:02 Rickettsia IgM Ab Not detected 02/28/25 06:02 SARS-CoV-2 (PCR) Not detected (NOT DETECT) 02/27/25 11:00 TB (QFT) Gold In Tube Indeterminate (NEGATIVE) A 02/28/25 06:02 TB Test (QFT) Nil 0.01 IU/mL 02/28/25 06:02 TB Test (QFT) Mitogen 0.14 IU/mL 02/28/25 06:02 TB Test Mitogen - Nil 0.00 IU/mL 02/28/25 06:02 TB Test TB -Nil 0.00 IU/mL 02/28/25 06:02 Beta-(1,3)-D-Glucan 190 pg/mL (<60) H 02/27/25 19:21 B-(1,3)-D-Glucan Intrp Positive (Negative) A 02/27/25 19:21 Misc Test Reference Cancelled 02/26/25 06:02 Blood Type O Positive 03/01/25 10:57 Rho(D) Type Rh positive 03/01/25 10:57 Antibody Screen Negative 03/01/25 10:57 Crossmatch See Detail 03/01/25 10:57 Vitals Last Vital Signs Temp 97.6 F 03/08/25 05:20 Pulse 87 03/08/25 06:12 Resp 23 H 03/08/25 06:12 BP 116/96 03/08/25 06:12 Pulse Ox 97 03/08/25 05:20 O2 Del Method Nasal Cannula 03/08/25 05:20 O2 Flow Rate 2 03/07/25 23:00 FiO2 2 03/08/25 05:20 Discharge Plan Discharge Patient Disposition: Home Condition: Stable Prescriptions: New azithromycin 250 mg Tablet 1,500 mg PO WEEKLY 28 Days Qty: 36 0RF sulfamethoxazole-trimethoprim 800-160 mg Tablet 2 tab PO BID 21 Days Qty: 84 0RF colchicine 0.6 mg Tablet 0.3 mg PO TuTh 30 Days Qty: 5 0RF midodrine 5 mg Tablet 10 mg PO TID 30 Days Qty: 180 0RF amiodarone [Pacerone] 200 mg Tablet 200 mg PO DAILY Qty: 30 0RF fluconazole 100 mg Tablet 100 mg PO DAILY Qty: 30 0RF prednisone 20 mg Tablet 40 mg PO BID Qty: 41 0RF Rx Instructions: 40 mg twice daily for 5 days, followed by 40 mg daily for 5 days followed by 20 mg daily for 11 days Continued Biktarvy 50-200-25 mg tablet 1 tab PO DAILY 30 Days Qty: 30 6RF albuterol sulfate 2.5 mg /3 mL (0.083 %) solution for nebulization 2.5 mg inhalation QID PRN (Reason: wheezing) Qty: 90 0RF Discontinued metoprolol succinate 100 mg tablet extended release 24 hr 100 mg PO BID Qty: 60 0RF Rx Instructions: MUST have follow-up for further refills prednisone 20 mg Tablet 40 mg PO DAILY amoxicillin-pot clavulanate 875-125 mg tablet 1 tab PO BID Qty: 7 0RF Discharge Orders: Discharge Order (Routine); Ordered 03/08/25 Ordered By: Luis Beatty Other Ambulatory Orders: DME: Walker (Order) Location: None Selected Ordered By: Luis Beatty Physical Therapy Eval and Treat Outpatient (Order) Timeframe: 2 Days Facility: [facility] - Location: Physical Therapy [place] Ordered By: Luis Beatty Referrals: [facility] [Provider Group, Infectious Disease] - 03/29/25 10:30 am Rebecca Montiel MD [Primary Care Provider, Family Practice] - 03/16/25 10:40 am Yoly Hinojosa FNP [Nurse Practitioner, Cardiology] - 2 weeks Gera Jean MD [Hospitalist, Oncology] - 1 month Referral Note: Persistent severe pancytopenia Discharge Diet: As Directed Discharge Activity: Resume usual activity and Increase activity as tolerated Patient Instructions: Sulfamethoxazole/Trimethoprim (By mouth), Prednisone (By mouth), Amiodarone (By mouth), Azithromycin (By mouth), Colchicine (By mouth), Fluconazole (By mouth), Midodrine (By mouth), HIV and AIDS, Pneumocystis Jiroveci Pneumonia (DC), Opioid Safety Activity Restrictions/Additional Instructions: Please follow-up with your appointments diligently. Please continue with dialysis Friday, Friday, Friday. Restrict fluid intake to less than 1500 cc, salt intake to less than 2 g daily. Do not take your Biktarvy/HIV medication for 2 weeks. After that please take HIV medications daily as prescribed before. Take prednisone which is the steroid 40 mg twice daily for 5 days followed by 40 mg daily for 5 days followed by 20 mg daily for 11 days. Discharge Attestations Time Spent in Discharge Care*: greater than 30 min Specific Discharge Activities: educating patient, discussing with pcp/other providers, discussing with director of casework department/social workers/dc planners, do cumenting/other paperwork and evaluating patient/reviewing data Status at Discharge: Cognitive status at discharge: cognitively intact , Behavioral status at discharge: cooperative , Overall status at discharge: patient is back to baseline Quality Metrics Clinical Quality Measures [ No reported AMI, CVA or VTE this stay] Coding Level of Care Code 94188 Total time (in minutes) for Discharge: 75 Diagnoses AIDS B20 Atrial fibrillation with rapid ventricular response I48.91 Congestive heart failure due to cardiomyopathy I50.9; I42.9 Nonischemic cardiomyopathy I42.8 HIV infection, unspecified symptom status Z21 HIV symptom status: unspecified ESRD (end stage renal disease) on dialysis N18.6; Z99.2 Pneumocystis jiroveci pneumonia B59 Pancytopenia D61.818 Anasarca R60.1 (QFT) QuantiFERON-TB test reaction without active tuberculosis R76.12 Syphilis A53.9 Elevated troponin R79.89 Thrombocytopenia D69.6 Other emphysema J43.8 COPD type: emphysema Emphysema type: other Cardiogenic shock R57.0 Sleep apnea, unspecified type G47.30 Sleep apnea type: unspecified type Noncompliance Z91.199
--- NOTE | 2025-03-08 09:00 | PM.PN ---
Subjective Subjective: Infectious disease progress note Patient's pneumocystis PCR returned positive last evening from expectorated sputum. Medications: Reviewed: Yes Medication Review Details: Current drips Levophed Vitals/I&O/Wt Last Vital Signs Temp 97.6 F 03/08/25 05:20 Pulse 99 03/08/25 14:34 Resp 24 H 03/08/25 14:34 BP 113/88 03/08/25 14:34 Pulse Ox 95 03/08/25 14:34 O2 Del Method Nasal Cannula 03/08/25 10:59 O2 Flow Rate 2 03/08/25 08:21 FiO2 2 03/08/25 05:20 03/08/25 03/08/25 03/08/25 06:59 14:59 22:59 Intake Total 240 / 240 Balance 240 / 240 Weight last 48 hrs Weight 66.4 kg Weight 66.7 kg Weight 66.58 kg Physical Exam Narrative: General: No acute distress, AO x3, chronically ill appearing HEENT: PERRLA, pupils bilaterally equal and reactive, pallors not present Chest: Normal vesicular breath sounds, no added sounds, equal good air entry bilaterally CVS: S1-S2 regular, no murmurs, no tachycardia, no gallops, no rubs Abdomen: Soft, distended, non tender Neuro: No focal deficits, no facial deformity, AO x3, power 5/5 in all limbs Data 03/08/25 04:24 03/08/25 04:24 Micro: Microbiology 03/04/25 11:22 Fungal Smear - Preliminary Sputum - Expectorated Sputum 03/02/25 15:03 Gram Stain - Final Peritoneal Fluid Anaerobic Culture - Preliminary Body Fluid Culture - Final Other data: Radiology Impressions Chest/Abdomen/Pelvis CT 02/26/25 19:47 IMPRESSION: 1. Patchy bilateral ground-glass airspace opacities suggestive of alveolar edema. 2. Cardiomegaly. 3. Azygos vein is somewhat dilated, findings discontinuation of the inferior vena cava distal to the inferior vena cava filter. 4. Anasarca. IMPRESSION: 1. Negative for focal acute inflammatory process in abdomen or pelvis. 2. Large amount of ascites in the abdomen. 3. Reflux of contrast into the intrahepatic veins and inferior vena cava suggestive of congestive heart failure. 4. Bilateral renal cysts, negative for follow-up advised. 5. Chronic atrophy of the kidneys bilaterally. 6. Bilateral nonobstructing renal calyceal stones. 7. Inferior vena cava filter seen. The inferior vena cava is not visualized distal to the inferior vena cava suggestive of absence or chronic occlusion. COMMENTS: 1. For patients with an IVC filter, recommend assessment for a management plan for the patient's IVC filter. If there is no established management plan, recommend referral to an interventional clinician on a nonemergent basis for evaluation. 2. Consistent with the [place] [employer]'s Incidental Findings Committee white paper (J Am Deb Radiol 2018): Any incidental renal lesion less than 1 cm or classified as too small to characterize, or any incidental cystic renal lesion characterized as simple-appearing, is likely benign. No follow-up imaging is recommended for these lesions per consensus recommendations based on imaging criteria. Chest X-Ray 02/26/25 20:12 IMPRESSION: 1. Cardiomegaly. 2. Pacer device. Paracentesis Ultrasound 03/02/25 08:04 IMPRESSION: Uncomplicated paracentesis yielding 5000 ml of peritoneal fluid. Duplex Scan Lower Extremity Artery 03/02/25 17:09 IMPRESSION: 1. Patent bilateral lower extremity arterial systems. There is diffuse calcific atherosclerotic plaque which is most prominent in the femoral arteries bilaterally, but no focal stenosis. Normal multiphasic waveforms are demonstrated throughout. 2. Elevated JOHN is compatible with atherosclerosis. Laboratory Results WBC 2.80 10^3/uL (3.29-11.43) L 03/08/25 04:24 RBC 2.65 10^6/uL (3.85-5.65) L 03/08/25 04:24 Hgb 7.90 g/dL (11.27-16.99) L 03/08/25 04:24 Hct 25.2 % (37-53) L 03/08/25 04:24 MCV 95.1 fl (82-101) 03/08/25 04:24 MCH 29.8 pg (27-33) 03/08/25 04:24 MCHC 31.3 g/dL (30-55) 03/08/25 04:24 RDW 20.5 % (12.1-15.1) H 03/08/25 04:24 Plt Count 26 10^3/cmm (157-399) L* 03/08/25 04:24 MPV Not Reportable 03/08/25 04:24 Neut % (Auto) 78.2 % 03/08/25 04:24 Lymph % (Auto) 8.2 % 03/08/25 04:24 [place] % (Auto) 8.6 % 03/08/25 04:24 Eos % (Auto) 3.6 % 03/08/25 04:24 Baso % (Auto) 0.7 % 03/08/25 04:24 Neut # (Auto) 2.19 10^3/uL (1.8-7.7) 03/08/25 04:24 Lymph # (Auto) 0.2 10^3/uL (0.8-4.8) L 03/08/25 04:24 [place] # (Auto) 0.2 10^3/uL (0.2-0.9) 03/08/25 04:24 Eos # (Auto) 0.1 10^3/uL (0.0-0.8) 03/08/25 04:24 Baso # (Auto) 0.0 10^3/uL (0.0-0.1) 03/08/25 04:24 Absolute Lymphs (auto) Not Reportable 02/28/25 06:02 Nucleated RBC % (auto) 0.7 % 03/08/25 04:24 Nucleated RBCs # 0.0 /100WBC 03/08/25 04:24 Differential Comment Yes 03/02/25 15:03 PT 17.10 SECONDS (12.1-14.9) H 03/01/25 02:00 INR 1.30 (0.8-1.2) H 03/01/25 02:00 APTT 36.6 SECONDS (23.9-36.7) 03/01/25 02:00 Fibrinogen 189 mg/dL (174-498) 02/27/25 12:05 D-Dimer 9.16 ug/mLFEU (0-0.59) H 02/27/25 12:05 Specimen Type Arterial 03/07/25 18:58 Sample Site Brachial, right 03/07/25 18:58 ABG pH 7.42 (7.35-7.45) 03/07/25 18:58 ABG pCO2 41.5 mmHg (35-45) 03/07/25 18:58 ABG pO2 55.9 mmHg (80.0-100.0) L 03/07/25 18:58 ABG PO2/FiO2 Ratio 266 03/07/25 18:58 ABG HCO3 26.8 mmol/L (22-26) H 03/07/25 18:58 ABG O2 Saturation 86.1 03/07/25 18:58 ABG Base Excess 2.0 mmol/L (-2.0-2.0) 03/07/25 18:58 Wilfred Test N/a 03/07/25 18:58 A-a O2 Gradient 5.4 mmHg (5-10) 03/07/25 18:58 Hematocrit 27.5 % (42-52) L 03/07/25 18:58 Hgb O2 Saturation 83.0 % (95-100) L 03/07/25 18:58 Carboxyhemoglobin 2.4 %THgb (0.4-20.1) 03/07/25 18:58 Methemoglobin 1.1 % (0.4-1.5) 03/07/25 18:58 Total Hemoglobin 9.0 g/dL (14-18) L 03/07/25 18:58 Sodium 140.0 mmol/L (131-143) 03/07/25 18:58 Potassium 4.1 mmol/L (3.5-5.0) 03/07/25 18:58 Glucose 98.0 mg/dL (70-115) 03/07/25 18:58 Ionized Calcium 1.2 mmol/L (1.1-1.4) 03/07/25 18:58 O2 Delivery Device Room air 03/07/25 18:58 O2 Liters/Min 3.0 % 02/26/25 17:53 FiO2 21.0 % 03/07/25 18:58 Pie Topper ID Jdb 03/07/25 18:58 Sodium 140 mmol/L (136-145) 03/08/25 04:24 Potassium 4.4 mmol/L (3.5-5.1) 03/08/25 04:24 Chloride 97 mmol/L (98-107) L 03/08/25 04:24 Carbon Dioxide 26 mmol/L (22-29) 03/08/25 04:24 Anion Gap 21.4 (5-19) H 03/08/25 04:24 BUN 40 mg/dL (6-20) H 03/08/25 04:24 Creatinine 4.5 mg/dL (0.7-1.2) H 03/08/25 04:24 GFR Calculation 17.7 mL/min (90-130) L 03/08/25 04:24 Glucose 71 mg/dL (65-115) 03/08/25 04:24 Estimat Average Glucose 94 02/26/25 16:03 Hemoglobin A1c 4.9 % (4.0-6.0) 02/26/25 16:03 Calculated Osmolality 298 mOsm/kg (285-295) H 03/08/25 04:24 Lactic Acid 2.3 mmol/L (0.5-2.2) H 02/28/25 06:02 Lactic Acid (Sepsis) 2.7 mmol/L (0.5-2.2) H 02/28/25 09:42 Calcium 9.7 mg/dL (8.5-10.5) 03/08/25 04:24 Phosphorus 4.8 mg/dL (2.5-4.5) H 03/04/25 03:46 Magnesium 2.1 mg/dL (1.7-2.3) 03/01/25 02:00 Iron 121 ug/dL (59-158) 02/26/25 16:03 TIBC 142 mcg/dl 02/26/25 16:03 % Saturation 85.2 % (20-50) H 02/26/25 16:03 Unsat Iron Binding 21 ug/dL (112-347) L 02/26/25 16:03 Total Bilirubin 1.1 mg/dL (0.15-1.2) 03/08/25 04:24 AST 18 U/L (0-40) 03/08/25 04:24 ALT 6 U/L (0-41) 03/08/25 04:24 Alkaline Phosphatase 81 U/L (40-130) 03/08/25 04:24 Lactate Dehydrogenase 230 U/L (135-225) H 02/26/25 16:03 Troponin T Baseline 214 ng/L (0-15) H* 02/28/25 13:03 Troponin T 120 Minute 213.5 ng/L (0-15) H 02/28/25 15:11 Delta Troponin T -0.5 ABS# (0-10) L 02/28/25 15:11 Troponin T Hi Sens 6Hr 201.6 ng/L (0-15) H 02/28/25 19:04 Troponin T Hi Sens 6Hr Delta -12.4 ng/L (0-12) L 02/28/25 19:04 Total Protein 8.0 g/dL (6.6-8.7) 03/08/25 04:24 Albumin 4.8 g/dL (3.5-5.2) 03/08/25 04:24 Globulin 3.2 g/dL (1.3-4.6) 03/08/25 04:24 Triglycerides 60 mg/dL (0-150) 02/27/25 04:31 Cholesterol 64 mg/dL (0-200) 02/27/25 04:31 LDL Cholesterol, Calc 15 mg/dL (50-129) L 02/27/25 04:31 HDL Cholesterol 37 mg/dL (60-100) L 02/27/25 04:31 LDL/HDL Ratio 0.41 RATIO (0.00-3.22) 02/27/25 04:31 Cholesterol/HDL Ratio 1.73 mg/dL (1.0-5.00) 02/27/25 04:31 Vitamin B12 > 2000 pg/mL (232-1245) H 02/26/25 16:03 Folate 8.1 ng/mL (4.5-32.2) 02/27/25 04:31 Procalcitonin 7.94 ng/mL (0-0.5) H 02/27/25 04:31 TSH 8.08 uIU/mL (0.27-4.20) H 02/26/25 16:03 Random Cortisol 12.75 ug/dL (2.47-19.5) 03/07/25 04:19 Fluid Color Ldia 03/02/25 15:03 Fluid Appearance Cloudy 03/02/25 15:03 Fluid Specific Grav 1.034 03/02/25 15:03 Fluid pH 8.0 03/02/25 15:03 Fluid WBC 205 /uL 03/02/25 15:03 Fluid RBC 1.000 10^3/uL 03/02/25 15:03 Fld Polynuclear WBCs # 0.110 03/02/25 15:03 Fld Polynuclear WBCs % 53.700 % 03/02/25 15:03 Fl Mononucl WBCs #(Auto) 0.095 03/02/25 15:03 Fl Mononuclear % Auto 46.300 % 03/02/25 15:03 Fld Crystal Laterality Ascites fluid 03/02/25 15:03 Fluid Glucose 81.0 mg/dL 03/02/25 15:03 Fluid Total Protein 5.7 g/dL 03/02/25 15:03 Fluid Albumin 2.7 g/dL 03/02/25 15:03 Fluid LDH 114 U/L 03/02/25 15:03 Fluid Alk Phosphatase 46 IU/L 03/02/25 15:03 Fluid Cholesterol 42 mg/dL (0-200) 03/02/25 15:03 Fluid Triglycerides 37 mg/dL (0-150) 03/02/25 15:03 Fluid Uric Acid 3 mg/dL 03/02/25 15:03 Peritoneal Amylase 55 U/L 03/02/25 15:03 Nasal MRSA (PCR) Not detected (Negative) 02/27/25 00:00 Lymphocyte Subset Cmmnt Not Reportable 02/28/25 06:02 % CD3/CD4 Cells TNP 02/28/25 06:02 Absolute CD4 Count Not Reportable 02/28/25 06:02 CD4/CD8 Ratio Not Reportable 02/28/25 06:02 % CD8 Cells Not Reportable 02/28/25 06:02 Absolute CD8 Count Not Reportable 02/28/25 06:02 RPR w/Rflx to Titer Non-reactive (NON-REACTIVE) 02/26/25 04:31 T.pallidum Ab (FTA-ABS) Reactive minimal A 02/26/25 04:31 Adenovirus (PCR) Not detected (NOT DETECT) 02/27/25 11:00 Lyme Ab (Western Blot) <0.90 index 02/28/25 06:02 C. pneumoniae DNA (PCR) Not detected (NOT DETECT) 02/27/25 11:00 Coronavirus 229E (PCR) Not detected (NOT DETECT) 02/27/25 11:00 E. chaffeensis IgG Ab <1:64 02/28/25 06:02 E. chaffeensis IgM Ab <1:20 02/28/25 06:02 E. chaffeensis Interp See note 02/28/25 06:02 E. chaffeensis Comment Not Reportable 02/28/25 06:02 Hepatitis A IgM Ab Non-reactive (Nonreactive) 02/26/25 16:03 Hep Bs Antigen Non-reactive (Nonreactive) 02/26/25 16:03 Hep Bs Antibody 9.4 (11.5-1000) L 02/27/25 06:52 Hep B Core Total Ab Non-reactive (Nonreactive) 02/26/25 16:03 Hepatitis C Antibody Non-reactive (Nonreactive) 02/26/25 16:03 HIV-1 RNA copies/mL 4.70 (NOT DETECTED) H 02/26/25 04:31 HIV-1 RNA (PCR) log10 72603 copies/mL (NOT DETECTED) H 02/26/25 04:31 Human Metapneumovir PCR Not detected (NOT DETECT) 02/27/25 11:00 Influenza A (H1) PCR Not detected (NOT DETECT) 02/27/25 11:00 Influ A (H1/09) PCR Not detected (NOT DETECT) 02/27/25 11:00 Influenza A (H3) PCR Not detected (NOT DETECT) 02/27/25 11:00 Influenza Type A (PCR) Not detected (NOT DETECT) 02/27/25 11:00 Influenza Type B (PCR) Not detected (NOT DETECT) 02/27/25 11:00 M. pneumoniae (PCR) Not detected (NOT DETECT) 02/27/25 11:00 Parainfluenza 1 (PCR) Not detected (NOT DETECT) 02/27/25 11:00 Parainfluenza 2 (PCR) Not detected (NOT DETECT) 02/27/25 11:00 Parainfluenza 3 (PCR) Not detected (NOT DETECT) 02/27/25 11:00 Parainfluenza 4 (PCR) Not detected (NOT DETECT) 02/27/25 11:00 Pneumocystis Source Cancelled 03/02/25 12:20 Pneumocystis Source Sputum 03/02/25 12:20 Pneumocyst jirovecii PCR Cancelled 03/02/25 12:20 Pneumocyst jirovecii PCR Detected (Not Detected) A 03/02/25 12:20 RSV Type A (PCR) Not detected (NOT DETECT) 02/27/25 11:00 RSV Type B (PCR) Not detected (NOT DETECT) 02/27/25 11:00 Entero/Rhino (PCR) Not detected (NOT DETECT) 02/27/25 11:00 Rickettsia IgG Ab Not detected 02/28/25 06:02 Rickettsia IgM Ab Not detected 02/28/25 06:02 SARS-CoV-2 (PCR) Not detected (NOT DETECT) 02/27/25 11:00 TB (QFT) Gold In Tube Indeterminate (NEGATIVE) A 02/28/25 06:02 TB Test (QFT) Nil 0.01 IU/mL 02/28/25 06:02 TB Test (QFT) Mitogen 0.14 IU/mL 02/28/25 06:02 TB Test Mitogen - Nil 0.00 IU/mL 02/28/25 06:02 TB Test TB -Nil 0.00 IU/mL 02/28/25 06:02 Beta-(1,3)-D-Glucan 190 pg/mL (<60) H 02/27/25 19:21 B-(1,3)-D-Glucan Intrp Positive (Negative) A 02/27/25 19:21 Misc Test Reference Cancelled 02/26/25 06:02 Blood Type O Positive 03/01/25 10:57 Rho(D) Type Rh positive 03/01/25 10:57 Antibody Screen Negative 03/01/25 10:57 Crossmatch See Detail 03/01/25 10:57 A&P Assessment and plan (1) HIV (human immunodeficiency virus infection): Pateint with known HIV infection, has not been compliant with medications since at least one year VL now returned at 50, 100 requested HIV genotype pending to start Biktarvy 1 tab po daily today further recommendations based on cd4 count requested sputum PJP PCR pending negative serum cryptococcal antigen anticipate GGOs to be pulm edema however with leukopenia, anticipated low cd4 count, will need to evaluate for PJP. Pending serum Fungitell screen and PJP PCR from sputum he was previously on dapsone for ppx but has not taken it recently. (2) Pancytopenia: suspect may be related to HIV/AIDS pending cd4 count, pending tick panel (3) Cardiogenic shock: (4) Anasarca: likey related to renal vs cardiogenic cause (5) (QFT) QuantiFERON-TB test reaction without active tuberculosis: Indeterminate Quantiferon screen likely related to leukopenia, impaired immune response Not reliable in this setting for diagnosis or exclusion of TB disease or LTBI at this point if undergoing paracentesis today, please add on mycobacterial culture in addition to fluid analysis and bacterial cx. Health dept contacted for rapid TB rule out- requested sp[facility] expected to be 7-10 days. Unfortunately health dept cannot run AFB cx or PCR on peritoneal fluid per discussion with health dept nurse. (6) Syphilis: history of treated syphilis currently RPR negative awaiting FTA-ABS (7) AIDS: (8) Pneumocystis jiroveci pneumonia: (9) Oropharyngeal candidiasis: Plan 03/04/25: Care plan discussed with hospitalist. CD4 count returned undetectable due to severe lymphopenia. Start azithromycin 1500 weekly MAC ppx. Though patient is resuming HAART, he has a h/o non complaince therefore starting MAC ppx due to unreliable HAART intake. Start Bactrim DS three times per week PJP ppx. PJP PCR is pending. elevated BDG ~ 190 , sputum cx showing budding yeast on prelim gram stain. Per discussion with [employer], this is more likely lizbeth, less likely crytptoccocus. We do not have the ability to perform Shelby ink staining in our micro lab. Requesting fungal cx send out to [facility]. Start Fluconazole 400mg x 1 followed by 200mg renally dosed fluconazole for presumptive cryptoccocal coverage while awaiting cx from outside lab. Crytococcal ag thus far negative. Since diagnosis of cryptoccus is suspected and not confirmed at this point, okay to continue HAART along side fluconazole until confirmation attained. Awaiting return of MTB PCR sputum from health dept. Can d/c Zosyn Will follow 03/07/25: See from the health department. Mycobacterial PCR negative x 1 from sputum. Mycobacterial smear negative x 2 from sputum. Additionally mycobacterial smear negative x 1 from [facility] . mycobacterial smear negative from peritoneal fluid. No concern for active clinical TB at this time.. Will repeat indeterminate QuantiFERON screen in 3 months once CD4 count has recovered. Currently indeterminate CD4 is most likely related to lymphopenia. Sputum culture revealed yeast to be Lizbeth albicans. Not cryptococcus. CD4 count less than 50. Patient's compliance with card is questionable as outpatient therefore will prefer to add back prophylaxis with azithromycin 1200 mg p.o. once weekly. Continue Biktarvy 1 tab p.o. daily for HIV. Viral load check in 1 months. Patient has been set up with diffusing field and maintenance of his home medications Bactrim prophylaxis Bactrim DS 3 times a week for pneumocystis prophylaxis. This will additionally provide toxoplasma CD4 count to be rechecked in 3 months. Patient encouraged compliance. Overall clinical picture i sconsistent with HIV /AIDS. Continue fluconazole 100mh p.o. daily for Lizbeth albicans. March 08, 2025 Pneumocystis PCR returned positive yesterday from sputum. CT of the chest had previously shown patchy groundglass airspace opacities which were thought to be related to pulmonary edema, however pneumocystis pneumonia can appear similar on imaging. Overall clinical picture is consistent with pneumocystis pneumonia. Patient is complaining of cough, oxygen requirement at 3 L/min, is severely immunocompromised with an undetectable CD4 count. Change Bactrim from prophylactic dosing to treatment dosing. Dose has remained increased to Bactrim DS 2 tab p.o. twice daily every 12 hours (renally dosed as against every 8 hours) for treatment of pneumocystis pneumonia. Steroid taper additionally added, starting at 40 mg p.o. twice daily prednisone to be tapered over 3 weeks. Patient instructed to hold Biktarvy for now to minimize risk of IRIS and restart in 2 weeks. Would still aim for early HAART initiation. Continue fluconazole 100 mg p.o. daily for severe candidiasis. Continue weekly azithromycin MAC prophylaxis. f/up ID clinic on March 29, 2025. This documentation was created by [employer] training lead software. Every effort was made to ensure accuracy of training lead. Any obvious errors or omissions should be clarified with the author of the document. PDMP PDMP Reviewed: Not Reviewed Attestations Medical Necessity Statement*: per admitting Coding Level of Care Code Acute Code for Chg Fwd High MDM includes number and complexity of problems actively addressed during encounter, amount and/or complexity of data reviewed/ordered and described risk of complication, morbidity or mortality of management as documented Diagnoses HIV infection, unspecified symptom status Z21 HIV symptom status: unspecified Pancytopenia D61.818 Cardiogenic shock R57.0 Anasarca R60.1 (QFT) QuantiFERON-TB test reaction without active tuberculosis R76.12 Syphilis A53.9 AIDS B20 Pneumocystis jiroveci pneumonia B59 Oropharyngeal candidiasis B37.0
[2025-03-08] MEDS: sulfamethoxazole-trimeth DS 160-800 mg Tablet 2 TAB PO (09:10)
[2025-03-08] MEDS: amiodarone 200 mg Tablet PO (09:10)
[2025-03-08] MEDS: midodrine 5 mg TABLET 10 MG PO (09:10)
[2025-03-08] MEDS: predniSONE 20 mg Tablet 40 MG PO (09:10)
[2025-03-08] MEDS: fluconazole 100 mg Tablet 200 MG PO (09:10)
[2025-03-08] MEDS: colchicine 0.6 mg Tablet 0.3 MG PO (09:14)
--- NOTE | 2025-03-08 13:14 | P.PN_ITS ---
Subjective 2 Subjective: no new c/o Medications: Reviewed: Yes Vitals/I&O/Wt Last Vital Signs Temp 97.6 F 03/08/25 05:20 Pulse 96 03/08/25 10:59 Resp 16 03/08/25 10:59 BP 113/88 03/08/25 10:59 Pulse Ox 93 03/08/25 10:59 O2 Del Method Nasal Cannula 03/08/25 10:59 O2 Flow Rate 2 03/08/25 08:21 FiO2 2 03/08/25 05:20 03/07/25 03/08/25 03/08/25 22:59 06:59 14:59 Intake Total 100 / 600 Balance 100 / -1659 Weight last 48 hrs Weight 66.4 kg Weight 66.7 kg Weight 66.58 kg Physical Exam 2 Narrative: GEN: nad alert, HEAD: normocephalic, atraumatic EYES: eomi, anicteric sclera HEENT: mmm NECK: no jvd CV: rrr LUNGS: diminished BS bilaterally ABD: soft, nt, nd EXT: no LE edema NEURO: grossly normal SKIN: no rash Data 03/08/25 04:24 03/08/25 04:24 Micro: Microbiology 03/02/25 15:03 Gram Stain - Final Peritoneal Fluid Anaerobic Culture - Preliminary Body Fluid Culture - Final 03/04/25 11:22 Fungal Smear - Preliminary Sputum - Expectorated Sputum A&P Assessment and plan (1) ESRD (end stage renal disease) on dialysis: Plan 1. End-stage renal disease He is on maintenance HD on a MWF schedule 2. Acute respiratory failure- with pulmonary edema, HD as above 3. A-fib with RVR- his hr is controlled 4. History of HIV 5. Pancytopenia- likely due to HIV 6. Anemia in ckd- YAZMIN with HD 7. Thambocytopenia , avoid heparin with hD 8. Hypotension , off levophed , off dobutamine drip, added Midodrine and IV albumin PDMP PDMP Reviewed: Not Reviewed Attestations 2 Medical Necessity Statement*: per medicine Coding Level of Care Code Acute Code for Chg Fwd Diagnoses ESRD (end stage renal disease) on dialysis N18.6; Z99.2
--- NOTE | 2025-03-08 13:20 | PM.PN ---
Subjective Subjective: no new c/o Medications: Reviewed: Yes Vitals/I&O/Wt Last Vital Signs Temp 97.6 F 03/08/25 05:20 Pulse 96 03/08/25 10:59 Resp 16 03/08/25 10:59 BP 113/88 03/08/25 10:59 Pulse Ox 93 03/08/25 10:59 O2 Del Method Nasal Cannula 03/08/25 10:59 O2 Flow Rate 2 03/08/25 08:21 FiO2 2 03/08/25 05:20 03/07/25 03/08/25 03/08/25 22:59 06:59 14:59 Intake Total 100 / 600 Balance 100 / -1659 Weight last 48 hrs Weight 66.4 kg Weight 66.7 kg Weight 66.58 kg Physical Exam Narrative: GEN: nad alert, HEAD: normocephalic, atraumatic EYES: eomi, anicteric sclera HEENT: mmm NECK: no jvd CV: rrr LUNGS: diminished BS bilaterally ABD: soft, nt, nd EXT: no LE edema NEURO: grossly normal SKIN: no rash Data 03/08/25 04:24 03/08/25 04:24 Micro: Microbiology 03/02/25 15:03 Gram Stain - Final Peritoneal Fluid Anaerobic Culture - Preliminary Body Fluid Culture - Final 03/04/25 11:22 Fungal Smear - Preliminary Sputum - Expectorated Sputum A&P Assessment and plan (1) ESRD (end stage renal disease) on dialysis: Plan 1. End-stage renal disease He is on maintenance HD on a MWF schedule 2. Acute respiratory failure- with pulmonary edema, HD as above 3. A-fib with RVR- his hr is controlled 4. History of HIV 5. Pancytopenia- likely due to HIV 6. Anemia in ckd- YAZMIN with HD 7. Thambocytopenia , avoid heparin with hD 8. Hypotension , off levophed , off dobutamine drip, added Midodrine and IV albumin PDMP PDMP Reviewed: Not Reviewed Attestations Medical Necessity Statement*: per pa Coding Level of Care Code Acute Code for Chg Fwd Diagnoses ESRD (end stage renal disease) on dialysis N18.6; Z99.2
--- NOTE | 2025-03-08 13:45 | PC.NURSE ---
Central line from right groin removed. Firm pressure was held for over 10 minutes and a pressure dressing was placed. Patient is laying in bed at this time. We are waiting on heart care services appointment date and time before printing the discharge. Patient is also waiting on his meds to beds from [facility] pharmacy before discharging. Patient sister in law is coming from [place] and will be his ride home.
--- NOTE | 2025-03-08 14:32 | PC.NURSE ---
Patient discharged home with sister in law. Discharge instructions given to patient. Patient medications Biktarvey was returned to patient from the [facility]. Patient medicatios were filled through [facility] meds to beds. All bedside belongings were sent with patient along with new walker that was delivered from HOME. Patient verbalized discharge instructions. Patient left via wheelchair to sister in laws vehicle.
[2025-03-08 14:44] LABS: Amylase, Peritoneal Fluid 55 U/L
--- NOTE | 2025-03-08 16:16 | PC.NURSE ---
Called patient now 16:17p.m. with appointment with Yoly Hinojosa on March 17 @ 16:00p.m. Patient is aware.
[2025-03-10 01:30] LABS: Fibrinogen Degradation Product 10 mcg/mL (LESS THAN 5)
[2025-03-11 17:16] LABS: Coccidioides AB CF Serum <1:2
[2025-03-13 15:49] LABS: Blastomyces AB Immunodiffusion Negative (Negative); Blastomyces Dermatitidis AB <1:8 titer (<1:8)
== END 2025-03-08 14:37 | disposition home or self-care (01) | DRG 280 ==
LOC: ER 17:41 → CSU 18:13 → ICU 18:43
PROVIDERS: Hospitalist; Internal Medicine; Nurse Practitioner Family; Student in an Organized Health Care Education/Training Program; Admitting Provider Student in an Organized Health Care Education/Training Program; Emergency Provider Emergency Medicine; PCP Family Medicine; Visit Provider Student in an Organized Health Care Education/Training Program
DX: I50.23 Acute on chronic systolic (congestive) heart failure (principal); B59 Pneumocystosis; I21.A1 Myocardial infarction type 2; N18.6 End stage renal disease; R57.0 Cardiogenic shock; B20 Human immunodeficiency virus [HIV] disease; N17.9 Acute kidney failure, unspecified; L76.32 Postprocedural hematoma of skin and subcutaneous tissue following other procedure; R18.8 Other ascites; B37.0 Candidal stomatitis; I30.0 Acute nonspecific idiopathic pericarditis; I42.8 Other cardiomyopathies; I48.91 Unspecified atrial fibrillation; D63.1 Anemia in chronic kidney disease; D69.6 Thrombocytopenia, unspecified; I95.9 Hypotension, unspecified; K59.00 Constipation, unspecified; T50.996A Underdosing of other drugs, medicaments and biological substances, initial encounter; R00.0 Tachycardia, unspecified; I07.1 Rheumatic tricuspid insufficiency; G47.30 Sleep apnea, unspecified; J43.8 Other emphysema; R79.89 Other specified abnormal findings of blood chemistry; R76.12 Nonspecific reaction to cell mediated immunity measurement of gamma interferon antigen response without active tuberculosis; Z79.899 Other long term (current) drug therapy; Z99.2 Dependence on renal dialysis; Z92.3 Personal history of irradiation; Z91.128 Patient's intentional underdosing of medication regimen for other reason; Z86.19 Personal history of other infectious and parasitic diseases; Z87.891 Personal history of nicotine dependence; Z95.828 Presence of other vascular implants and grafts; Z92.21 Personal history of antineoplastic chemotherapy; Z90.79 Acquired absence of other genital organ(s); Z85.47 Personal history of malignant neoplasm of testis; Z86.718 Personal history of other venous thrombosis and embolism
CPT/HCPCS: 12345; 36415; 36430; 36592; 36600; 49083; 51798; 71045; 71260; 74177; 80051; 80053; 80061; 80069; 80503; 82042; 82150; 82330; 82465; 82533; 82607; 82746; 82805; 82945; 83036; 83540; 83550; 83605; 83615; 83735; 83986; 84075; 84100; 84145; 84157; 84315; 84443; 84478; 84484; 84560; 85014; 85018; 85025; 85049; 85362; 85378; 85384; 85610; 85730; 86360; 86403; 86480; 86592; 86612; 86618; 86635; 86666; 86705; 86706; 86709; 86757; 86780; 86803; 86850; 86900; 86920; 87015; 87040; 87070; 87075; 87102; 87106; 87116; 87205; 87206; 87340; 87449; 87486; 87536; 87581; 87633; 87798; 87801; 88112; 88305; 89050; 90935; 93005; 93306; 93925; 94664; 94760; 96365; 96366; 96367; 96374; 96375; 96376; 97116; 97162; 99291; 99292; A4222; G0378; J0283; J1200; J1250; J1644; J1938; J2270; J2405; J2470; J2543; J2919; J3370; J3490; J7512; J9999; P9016; P9035; P9046; Q3014

== ENCOUNTER 2025-02-27 05:00 | Outpatient (RCR) | payer MEDICARE, SELFPAY | END 2025-03-28 23:59 | disposition home or self-care (01) | LOC: TPT 05:00 | PROVIDERS: Visit Provider Student in an Organized Health Care Education/Training Program | DX: I50.9 Heart failure, unspecified (principal) | CPT/HCPCS: 97110; 97162 ==

== ENCOUNTER → 2025-03-10 15:35 | Outpatient (BNVA) | payer MEDICARE, SELFPAY | PROVIDERS: PCP Family Medicine; Visit Provider Family Medicine | DX: N18.6 End stage renal disease (principal); Z99.2 Dependence on renal dialysis; D61.818 Other pancytopenia | CPT/HCPCS: 80053; 85025 ==

== ENCOUNTER → 2025-03-17 16:35 | Outpatient (BNVA) | payer MEDICARE, SELFPAY | PROVIDERS: PCP Family Medicine; Visit Provider Nurse Practitioner Family | DX: I48.20 Chronic atrial fibrillation, unspecified (principal); I50.20 Unspecified systolic (congestive) heart failure; N18.6 End stage renal disease; Z99.2 Dependence on renal dialysis; Z09 Encounter for follow-up examination after completed treatment for conditions other than malignant neoplasm; I35.0 Nonrheumatic aortic (valve) stenosis; Z87.891 Personal history of nicotine dependence; I48.0 Paroxysmal atrial fibrillation | CPT/HCPCS: 93005; 99214 ==

== ENCOUNTER 2025-03-21 09:39 | Inpatient (IN) | payer MEDICARE, SELFPAY ==
[2025-03-21] VITALS (21 sets, daily range): BP systolic 92–118; BP diastolic 49–89; PULSE 64–108; RESP 16–22; TEMP 36.4–37; O2SAT 92–100; BMI 19.8
--- NOTE | 2025-03-21 10:32 | W.ED.GENADLT ---
HPI - General Adult General: Chief complaint: General Medical Stated complaint: sent from dialysis, abnormal labs Time Seen by Provider: 03/21/25 09:47 History of Present Illness: 39-year-old male patient has a history of end-stage renal disease is on dialysis was at dialysis today and noted to have low platelets was directed to the emergency room. He did complete his run of dialysis today. He has had similar episode in the past where he has been anemic and thrombocytopenic. He did have his dialysis today usually gets dialysis on Friday finished his full course of dialysis. Patient denies any abdominal pain or chest pain. Associated symptoms: Deny chest pain, dyspnea or rash Related Data Home Medications ?Medication ?Instructions ?Recorded ?Confirmed prednisone 20 mg tablet See Rx Instructions .Route .COMPLEX 03/21/25 03/21/25 Previous Rx's ?Medication ?Instructions ?Recorded albuterol sulfate 2.5 mg/3 mL 2.5 mg (3 mL) inhalation QID PRN 02/17/25 (0.083 %) solution for nebulization wheezing #90 mL bictegravir 50 mg-emtricitabine 1 tab PO DAILY 30 days #30 tabs 02/27/25 200 mg-tenofovir alafenam 25 mg tablet (Biktarvy) azithromycin 250 mg tablet 1,500 mg (6 x 250 mg) PO WEEKLY 4 03/08/25 weeks #36 tabs colchicine 0.6 mg tablet 0.3 mg (1/2 x 0.6 mg) PO TuTh 30 03/08/25 days #5 tabs fluconazole 100 mg tablet 100 mg PO DAILY #30 tabs 03/08/25 midodrine 5 mg tablet 10 mg (2 x 5 mg) PO TID 30 days 03/08/25 #180 tabs sulfamethoxazole 800 2 tab PO BID 21 days #84 tabs 03/08/25 mg-trimethoprim 160 mg tablet PORTABLE OXYGEN #1 ea 03/09/25 amiodarone 200 mg tablet (Pacerone) 200 mg PO DAILY #90 tabs 03/17/25 compression hose #1 ea 03/17/25 Allergies Allergy/AdvReac Type Severity Reaction Status Date / Time Iodinated Contrast Media Allergy Unknown Verified 03/21/25 09:49 lorazepam (From Ativan) Allergy ADR-Irritab Verified 03/21/25 09:49 le Review of Systems Const: Denies: fever(s) or chills Card: Denies: chest pain Resp: Denies: dyspnea GI: Denies: abdominal pain : Denies: dysuria, urinary frequency or urinary urgency Musc: Denies: neck pain or back pain Skin/Breast: Denies: rash PFSH ED PFSH: Medical History Noncompliance Tricuspid regurgitation Atrial fibrillation Nonischemic cardiomyopathy Deep vein thrombosis of left lower extremity Cardiac arrest Hemoptysis Sleep apnea Hyperkalemia Anemia in chronic kidney disease ESRD (end stage renal disease) on dialysis AV fistula HIV carrier History of testicular cancer Treated with orchiectomy, chemotherapy, and retroperitoneal lymph node dissection Surgical History History of inferior vena caval filter placement History of abdominal surgery (05/2009) Retroperitoneal lymph node dissection History of orchiectomy, unilateral (09/2008) Right unilateral orchiectomy with right inguinal lymph node biopsy S/P hemodialysis catheter insertion (11/30/20) R IJ catheter exchange History of removal of Port-a-Cath Family History Mother Stroke Denies family history of Anesthesia complication Bleeding disorder Social History Smoking and tobacco/nicotine status: former use of tobacco/nicotine Quit status (tobacco/nicotine): has quit using Year quit tobacco: 6 + years Former quit date comment: Smoker for 20+ years Alcohol intake: never Substance/Drug Use: current Adopted: No Caregiver/support person: Yes Lives independently: Yes Housing: House Current occupational status: disabled Pets and animals: No Sexually active: Yes Do you think of yourself as: Straight/Heterosexual Current gender identity: Male Josefa/Buddhism: Roman Catholic Physical Exam Const: COMMON NORMALS: no acute distress GENERAL APPEARANCE: cooperative and comfortable ORIENTATION/CONSCIOUSNESS: Yes awake, Yes oriented to person, Yes oriented to place and Yes oriented to time HENMT: COMMON NORMALS: normocephalic, atraumatic and hearing grossly normal bilaterally HEAD & SCALP: normocephalic and atraumatic Resp: COMMON NORMALS: normal respiratory effort, No retractions, No use of accessory muscles and clear to auscultation bilaterally AUSCULTATION: clear to auscultation bilaterally Cardio: COMMON NORMALS: regular rate, regular rhythm and No murmurs present (Cardio) RATE: regular rate RHYTHM: regular rhythm GI: COMMON NORMALS: Soft to palpation and No hepatosplenomegaly present AUSCULTATION: Yes normoactive bowel sounds PALPATION: Yes Soft to palpation, No Tenderness to palpation present (GI), No Guarding due to palpation present (GI) and Yes No hepatosplenomegaly present Extremity: COMMON NORMALS: normal to inspection, capillary refill normal, no clubbing, cyanosis or edema, no calf tenderness and no pedal edema Neuro: SENSORIUM/ORIENTATION: Yes oriented to person, Yes oriented to place and Yes oriented to time Skin: COMMON NORMALS: no rashes or lesions noted GENERAL SKIN EXAM: no rashes or lesions noted Course Vital Signs: Vital signs: Vital Signs Temperature 98.1 F 03/21/25 09:45 Pulse Rate 89 03/21/25 12:00 Respiratory Rate 22 H 03/21/25 09:45 Blood Pressure 109/55 03/21/25 12:00 Pulse Oximetry 100 03/21/25 12:00 Oxygen Delivery Me thod Nasal Cannula 03/21/25 12:00 [facility] - General Adult Medical Decision Making Patient is anemic and thrombocytopenic. He has end-stage renal disease. His bilirubin is elevated his liver functions are otherwise normal. Discussed with hospitalist will admit. Given the patient's history of heart failure and cardiomyopathy should be monitored closely while getting blood products may need further blood products and may need adjustment of medications for management of her heart failure with these infusions. Medical Records I reviewed the patient's medical records. Lab Data I reviewed the patient's lab results. 03/21/25 10:34 03/21/25 10:34 Radiology Impressions Chest X-Ray 03/21/25 12:20 IMPRESSION: 1. Diffuse interstitial infiltrate noted throughout the RIGHT lung and the visualized upper LEFT lung. This could represent interstitial pulmonary edema or pneumonia. 2. Marked cardiac enlargement unchanged. Laboratory Results WBC 2.68 10^3/uL (3.29-11.43) L 03/21/25 10:34 RBC 2.15 10^6/uL (3.85-5.65) L 03/21/25 10:34 Hgb 6.60 g/dL (11.27-16.99) L 03/21/25 10:34 Hct 21.8 % (37-53) L 03/21/25 10:34 Hct 22.0 % (37-53) L 03/21/25 10:34 MCV 102.3 fl (82-101) H 03/21/25 10:34 MCH 30.7 pg (27-33) 03/21/25 10:34 MCHC 30.0 g/dL (30-55) 03/21/25 10:34 RDW 23.5 % (12.1-15.1) H 03/21/25 10:34 Plt Count 59 10^3/cmm (157-399) L 03/21/25 10:34 MPV 12.6 fL (7.4-10.4) H 03/21/25 10:34 Neut % (Auto) 78.4 % 03/21/25 10:34 Lymph % (Auto) 11.2 % 03/21/25 10:34 Brooks % (Auto) 5.2 % 03/21/25 10:34 Eos % (Auto) 1.1 % 03/21/25 10:34 Baso % (Auto) 0.7 % 03/21/25 10:34 Reticulocyte % (Auto) 1.9 % (0.5-2.0) 03/21/25 10:34 Neut # (Auto) 2.10 10^3/uL (1.8-7.7) 03/21/25 10:34 Lymph # (Auto) 0.3 10^3/uL (0.8-4.8) L 03/21/25 10:34 Brooks # (Auto) 0.1 10^3/uL (0.2-0.9) L 03/21/25 10:34 Eos # (Auto) 0.0 10^3/uL (0.0-0.8) 03/21/25 10:34 Baso # (Auto) 0.0 10^3/uL (0.0-0.1) 03/21/25 10:34 Nucleated RBC % (auto) 1.1 % 03/21/25 10:34 Nucleated RBCs # 0.0 /100WBC 03/21/25 10:34 Peripher Smr Path Cons Sent for review 03/21/25 10:34 Retic Production Index 1.04 03/21/25 10:34 Sodium 137 mmol/L (136-145) 03/21/25 10:34 Potassium 3.6 mmol/L (3.5-5.1) 03/21/25 10:34 Chloride 92 mmol/L (98-107) L 03/21/25 10:34 Carbon Dioxide 25 mmol/L (22-29) 03/21/25 10:34 Anion Gap 23.6 (5-19) H 03/21/25 10:34 BUN 29 mg/dL (6-20) H 03/21/25 10:34 Creatinine 3.3 mg/dL (0.7-1.2) H 03/21/25 10:34 GFR Calculation 25.2 mL/min (90-130) L 03/21/25 10:34 Glucose 67 mg/dL (65-115) 03/21/25 10:34 Calculated Osmolality 288 mOsm/kg (285-295) 03/21/25 10:34 Calcium 8.6 mg/dL (8.5-10.5) 03/21/25 10:34 Total Bilirubin 2.1 mg/dL (0.15-1.2) H 03/21/25 10:34 AST 24 U/L (0-40) 03/21/25 10:34 ALT 17 U/L (0-41) 03/21/25 10:34 Alkaline Phosphatase 121 U/L (40-130) 03/21/25 10:34 Total Protein 8.3 g/dL (6.6-8.7) 03/21/25 10:34 Albumin 4.1 g/dL (3.5-5.2) 03/21/25 10:34 Globulin 4.2 g/dL (1.3-4.6) 03/21/25 10:34 Blood Type O Positive 03/21/25 10:57 Rho(D) Type Rh positive 03/21/25 10:57 Antibody Screen Negative 03/21/25 10:57 Crossmatch See Detail 03/21/25 10:57 All radiology interpretation(s) finalized by discharge Discharge Plan Discharge Patient Disposition: Admitted As Inpatient Admit Provider: Negro Rosado Clinical Impression: Pancytopenia, HIV (human immunodeficiency virus infection), Thrombocytopenia, Anemia Condition: Stable Coding Level of Care Code ED [employer] Operator for Jignesh Emerson
[2025-03-21 10:53] LABS: Basophils % 0.7 %; Eosinophils % 1.1 %; Lymphocytes # 0.3 10^3/uL (0.8-4.8); Lymphocytes % 11.2 %; Mean Corpuscular Hemoglobin 30.7 pg (27-33); Mean Corpuscular Volume 102.3 fl (82-101); Mean Platelet Volume 12.6 fL (7.4-10.4); Monocytes # 0.1 10^3/uL (0.2-0.9); Monocytes % 5.2 %; Neutrophils % 78.4 %; Nucleated Red Blood Cells % 1.1 %; Platelet Count 59 10^3/cmm (157-399); Red Blood Count 2.15 10^6/uL (3.85-5.65); Red Cell Distribution Width 23.5 % (12.1-15.1); White Blood Count 2.68 10^3/uL (3.29-11.43)
[2025-03-21 11:10] LABS: Alanine Aminotransferase 17 U/L (0-41); Albumin Level 4.1 g/dL (3.5-5.2); Alkaline Phosphatase 121 U/L (40-130); Anion Gap 23.6 (5-19); Aspartate Amino Transferase 24 U/L (0-40); Blood Urea Nitrogen 29 mg/dL (6-20); Calcium 8.6 mg/dL (8.5-10.5); Carbon Dioxide 25 mmol/L (22-29); Chloride 92 mmol/L (98-107); Globulin 4.2 g/dL (1.3-4.6); Glomerular Filtration Rate 25.2 mL/min (90-130); Glucose 67 mg/dL (65-115); Osmolality Calculated 288 mOsm/kg (285-295); Potassium 3.6 mmol/L (3.5-5.1); Sodium 137 mmol/L (136-145); Total Bilirubin 2.1 mg/dL (0.15-1.2); Total Protein 8.3 g/dL (6.6-8.7)
--- NOTE | 2025-03-21 12:20 | XR_ITS ---
WS: [id number] Exam: XR chest 1V portable [id number] Date/Time of Exam: 03/21/2025 12:36 PM Reason For Exam: sob, pcp pna There is diffuse interstitial infiltrate throughout the RIGHT lung and possibly in the upper lobe of the LEFT lung. A large part of the LEFT lung is obscured by the cardiac silhouette. The heart is enlarged. No pleural effusions or pneumothorax. The mediastinum is normal in contour. A battery pack overlies the lower lateral LEFT chest with the lead extending along the anterior chest wall. XR/XR chest 1V portable [id number] IMPRESSION: 1. Diffuse interstitial infiltrate noted throughout the RIGHT lung and the visu alized upper LEFT lung. This could represent interstitial pulmonary edema or pn eumonia. 2. Marked cardiac enlargement unchanged.
--- NOTE | 2025-03-21 12:23 | USR_ITS ---
PROCEDURE INFORMATION: Exam: US Abdomen, Limited; Right Upper Quadrant Exam date and time: 03/21/2025 4:50 PM Age: 39 years old Clinical indication: Bloating; Additional info: Tbili elev, poss cholestasis, to be done after PT is npo for 6 hours or 1800. Include detailed ivc TECHNIQUE: Imaging protocol: Real time ultrasound of the abdomen with image documentation. Limited exam focused on the right upper quadrant. COMPARISON: US paracentesis abd w [id number] 03/21/2025 4:47 PM FINDINGS: Liver: Normal. No masses. Gallbladder: Gallstones are identified. The gallbladder is not enlarged. Slight prominence of the gallbladder wall is nonspecific in the setting of ascites. Biliary ducts: Normal. No stones. No dilation. Pancreas: Visualized pancreas is unremarkable. Right kidney: Normal. No mass. No hydronephrosis. Intraperitoneal space: Large ascites including around the liver. Other findings: There is nonspecific echogenicity in the inferior vena cava near what appears to be the caval-atrial junction. US/US gall bladder [id number] IMPRESSION: 1. There is echogenicity in the inferior vena cava which could represent venous thrombus. 2. Cholelithiasis. 3. Large ascites.
[2025-03-21 12:47] LABS: LAB Peripheral Smear Sent for Review
[2025-03-21 12:49] LABS: Hematocrit 21.8 % (37-53); Retic Production Index 1.04; Reticulocyte % 1.9 % (0.5-2.0)
[2025-03-21 13:23] LABS: Lactate Dehydrogenase 302 U/L (135-225)
--- NOTE | 2025-03-21 13:28 | USR_ITS ---
PROCEDURE INFORMATION: Exam: US Duplex Lower Extremity Veins, Bilateral Exam date and time: 03/21/2025 4:21 PM Age: 39 years old Clinical indication: Condition or disease; Embolism or thrombosis; Lower extremity, bilateral; Additional info: Assess for dvt Patient reportedly has an IVC filter. TECHNIQUE: Imaging protocol: Real-time duplex ultrasound of the bilateral extremities with 2-D li scale, color Doppler flow and spectral waveform analysis including responses to compression and other maneuvers (when performed) with image documentation. Complete exam focused on the lower extremity veins. COMPARISON: [place] [id number] 03/02/2025 10:08 PM FINDINGS: Right deep veins: Nonocclusive echogenic filling defects throughout the deep venous system consistent with thrombi. Left deep veins: Nonocclusive echogenic filling defects throughout the deep venous system consistent with thrombi. Superficial veins: Greater saphenous veins at the saphenofemoral junctions are patent bilaterally without thrombus. Soft tissues: Unremarkable. US/[place] [id number] IMPRESSION: Diffuse nonocclusive deep venous thrombi in bilateral lower extremities.
[2025-03-21 13:42] LABS: Bilirubin Direct 1.17 mg/dL (0.00-0.30)
--- NOTE | 2025-03-21 13:43 | CT_ITS ---
WS: [id number] CT chest wo con [id number] HISTORY: reassess PCP infiltrates for improvement TECHNIQUE: Axial imaging performed through the thorax. Coronal and sagittal reformats are submitted. All CT scans at [facility] use at least one of these dose optimization techniques: automated exposure control; mA and/or kV adjustment per patient size (includes targeted exams where dose is matched to clinical indication); or iterative reconstruction. CONTRAST: None DLP: 365.86 mGy.cm COMPARISON: 02/26/2025, 10/22/2022 Lungs and central airway: Mild hazy groundglass attenuation throughout both lungs. No focal consolidation. No pneumothorax. Pleura: Small layering RIGHT pleural effusion. Heart and pericardium: Severe cardiomegaly. Mediastinum and riccardo: Limited evaluation of the mediastinum without contrast. Vessels: Normal size aortic and pulmonary artery. No coronary artery calcifications. Chest wall and lower neck: Soft tissue anasarca. Upper abdomen: Large amount of ascites noted within the upper abdomen. Heavily calcified aorta and visualized mesenteric arteries. There is an IVC filter. Severe renal atrophy. RIGHT renal calcifications. Osseous structures: No destructive process. CT/CT chest wo con [id number] IMPRESSION: 1. Mild bilateral hazy groundglass attenuation throughout the lungs. This can be noted with PCP. No focal consolidations. No pneumothorax. Minimal improvemen t since the prior study of 02/26/2025. 2. Small RIGHT pleural effusion. 3. Severe cardiomegaly. 4. Extensive atherosclerosis within the arteries of the thorax and upper abdom en. 5. Large amount of ascites. 6. IVC filter.
[2025-03-21] MEDS: pantoprazole DR 40 mg Tablet PO (13:44)
--- NOTE | 2025-03-21 14:04 | P.HP_ITS ---
Providers/Chief Complaint 2 Admitting Physician: Negro Rosado Primary Care Provider: Ethel White MD Chief Complaint: sent from dialysis, abnormal labs History of Present Illness Vivek Harden is a 39 year old patient with a history of HIV (suspected AIDS), congestive heart failure (CHF) with ejection fraction of 32%, valvular heart disease (moderate to severe mitral regurgitation, mild aortic stenosis, tricuspid regurgitation), atrial fibrillation, and end-stage renal disease on hemodialysis (Friday, Friday, Friday). The patient was recently admitted for CHF and pulmonary infiltrates, AFibw RVR, diagnosed with pneumocystis pneumonia, and started on Bactrim and prednisone. He had not been on HAART, these were prescribed with a delay in restarting antiretroviral therapy (ART) for HIV due to initiating PCP treatment. The patient is also on azithromycin for MAC prophylaxis and fluconazole for yeast found in sputum. 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 The patient was sent to the hospital for blood transfusion and possible additional dialysis. The patient reports ongoing shortness of breath, uses home oxygen, and has noticed swelling in the legs. Denies new fevers, nausea, vomiting, or abdominal pain. No history of cholecystectomy. The patient is aware of prior IVC filter placement and has had ascites and lower extremity edema attributed to right heart failure. No mention of new neurological or gastrointestinal symptoms. The patient is agreeable to hospital admission for transfusion and further evaluation. Review of Systems 2 Const: Denies: fever(s), chills, body aches or malaise ENMT: Denies: throat pain Card: Reports: edema and swelling of feet/ankles; Denies: chest pain or pre-syncope Resp: Reports: dyspnea (without worsening); Denies: productive cough, change in phlegm color or hemoptysis GI: Denies: abdominal pain, nausea, vomiting, diarrhea, constipation, hematochezia or melena : Denies: flank pain, difficulty urinating, urinary frequency or hematuria Musc: Denies: back pain, joint swelling or joint redness Skin/Breast: Denies: rash or new lesions Neuro: Denies: headache(s) or confusion Medications/Allergies Home Medications ?Medication ?Instructions ?Recorded ?Confirmed ?Last Taken ?Type albuterol sulfate 2.5 mg/3 mL 2.5 mg (3 mL) inhalation QID PRN 02/17/25 03/21/25 Unknown Rx (0.083 %) solution for nebulization wheezing #90 mL bictegravir 50 mg-emtricitabine 1 tab PO DAILY 30 days #30 tabs 02/27/25 03/21/25 03/20/25 Rx 200 mg-tenofovir alafenam 25 mg tablet (Biktarvy) azithromycin 250 mg tablet 1,500 mg (6 x 250 mg) PO WE EKLY 4 03/08/25 03/21/25 Unknown Rx weeks #36 tabs colchicine 0.6 mg tablet 0.3 mg (1/2 x 0.6 mg) PO TuT h 30 03/08/25 03/21/25 03/17/25 Rx days #5 tabs fluconazole 100 mg tablet 100 mg PO DAILY #30 tabs 07/2303/21/25 Unknown Rx midodrine 5 mg tablet 10 mg (2 x 5 mg) PO TID 30 d ays 03/08/25 03/21/25 03/20/25 Rx #180 tabs sulfamethoxazole 800 2 tab PO BID 21 days #84 tab s 03/08/25 03/21/25 Unknown Rx mg-trimethoprim 160 mg tablet PORTABLE OXYGEN #1 ea 03/09/25 03/21/25 Unkn own Rx amiodarone 200 mg tablet (Pacerone) 200 mg PO DAILY #9 0 tabs 03/17/25 03/21/25 03/20/25 Rx compression hose #1 ea 03/17/25 03/21/25 Unkn own Rx prednisone 20 mg tablet See Rx Instructions .Route . COMPLEX 03/21/25 03/21/25 03/20/25 History Allergies Allergy/AdvReac Type Severity Reaction Status Date / Time Iodinated Contrast Media Allergy Unknown Verified 03/21/25 09:49 lorazepam (From Ativan) Allergy ADR-Irritab Verified 03/21/25 09:49 le PFSH Acute 2 PFSH: Medical History (Updated 03/21/25 @ 14:32 by Negro Rosado MD) Syphilis AIDS Moderate to severe mitral regurgitation Valvular heart disease Noncompliance Tricuspid regurgitation Atrial fibrillation Nonischemic cardiomyopathy Deep vein thrombosis of left lower extremity Cardiac arrest Hemoptysis Sleep apnea Hyperkalemia Anemia in chronic kidney disease ESRD (end stage renal disease) on dialysis AV fistula HIV carrier History of testicular cancer Treated with orchiectomy, chemotherapy, and retroperitoneal lymph node dissection Surgical History History of inferior vena caval filter placement History of abdominal surgery (05/2009) Retroperitoneal lymph node dissection History of orchiectomy, unilateral (09/2008) Right unilateral orchiectomy with right inguinal lymph node biopsy S/P hemodialysis catheter insertion (11/30/20) R IJ catheter exchange History of removal of Port-a-Cath Family History Mother Stroke Denies family history of Anesthesia complication Bleeding disorder Social History Smoking and tobacco/nicotine status: former use of tobacco/nicotine Quit status (tobacco/nicotine): has quit using Year quit tobacco: 6 + years Former quit date comment: Smoker for 20+ years Alcohol intake: never Substance/Drug Use: current Adopted: No Caregiver/support person: Yes Lives independently: Yes Housing: House Current occupational status: disabled Pets and animals: No Sexually active: Yes Do you think of yourself as: Straight/Heterosexual Current gender identity: Male Josefa/Amish: Yarsani Vitals/I&O/Wt Last Vital Signs Temp 98.1 F 03/21/25 09:45 Pulse 106 H 03/21/25 13:48 Resp 22 H 03/21/25 09:45 BP 118/89 03/21/25 13:48 Pulse Ox 100 03/21/25 13:48 O2 Del Method Nasal Cannula 03/21/25 13:30 O2 Flow Rate 2 03/21/25 13:30 Weight last 48 hrs Weight 58.967 kg Physical Exam 2 Const: COMMON NORMALS: patient oriented x3 and alert GENERAL APPEARANCE: c ooperative ORIENTATION/CONSCIOUSNESS: Yes awake HENMT: COMMON NORMALS: oropharynx normal Neck/C-Spine: COMMON NORMALS: no JVD Resp: COMMON NORMALS: normal respiratory effort and clear to auscultation bilaterally AUSCULTATION: clear to auscultation bilaterally Cardio: COMMON NORMALS: no JVD, regular rhythm, S1 normal heart sound present, S2 normal heart sound present and No murmurs present (Cardio) RHYTHM: regular rhythm HEART SOUNDS: S1 normal heart sound present and S2 normal heart sound present GI: COMMON NORMALS: Normal to inspection, nondistended, normoactive bowel sounds present, Soft to palpation and non-tender PALPATION: Yes Soft to palpation Extremity: COMMON NORMALS: no joint enlargement GENERAL: Yes edema (2+) Neuro: COMMON NORMALS: patient oriented x3 and moves all extremities S ENSORIUM/ORIENTATION: Yes alert Skin: RASHES: no rashes Data 03/21/25 10:34 03/21/25 10:34 A&P Assessment and plan (1) Anemia: Worsening anemia : The patient has a history of chronic anemia with recent worsening (hemoglobin down to 6.6). The etiology may be multifactorial, including bone marrow suppression from HIV, possible hemolysis, and chronic kidney disease. The provider notes that additional blood tests are being sent to evaluate for hemolysis and other causes. The patient is to receive a red blood cell transfusion. There is concern for fluid overload due to underlying heart failure, so additional dialysis may be needed after transfusion. Reviewed vitals, CBC, CMP, ED provider note, discussed with ED provider, requested LDH, haptoglobin, reticulocyte, peripheral smear. Direct bilirubin. - Red blood cell transfusion ordered. - Monitor for signs of fluid overload post-transfusion. - With ascites, LE edema, may need additional dialysis if fluid overload occurs. Nephro consult requested. - Send additional blood tests to evaluate for hemolysis. - Requested Hemoccult. Start PPI with prednisone. Monitor for risk of C. difficile. 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 Worsened anemia as above. Platelets are somewhat better from before. (3) ESRD (end stage renal disease) on dialysis: Had hemodialysis today. Normally MWF. However, with needing transfusion as well as with noted fluid overload, acute systolic and diastolic congestive heart failure with peripheral edema, ascites, a lot of fluid around the liver and kidneys on CT, will need additional dialysis. Discussed with him. Appreciate nephrology consultation. Blood pressure soft. Monitor for risk of further hypotension. Continue midodrine. Monitor vitals. (4) Congestive heart failure due to cardiomyopathy: Acute systolic and diastolic congestive heart failure with anasarca. With valvular heart disease. With suspected pulmonary hypertension secondary to heart disease and HIV. Component of right heart failure. Discussed with him. The patient has severe CHF with ejection fraction of 32%, moderate to severe mitral regurgitation, mild aortic stenosis, and tricuspid regurgitation. The patient is at risk for fluid overload, especially with transfusion. The provider notes ongoing management and monitoring, with possible need for additional dialysis. The patient is on amiodarone for atrial fibrillation. - Consult nephrology for dialysis management post-transfusion. (5) Pneumocystis jiroveci pneumonia: On Bactrim and prednisone, as below. On 3 L nasal cannula oxygen. So far has not weaned down. Still with dyspnea. Additional assessment requested as discussed with him with CT chest. Monitor for risk of worsening liver dysfunction/cholestasis, electrolyte abnormalities with Bactrim. Monitor for risk of gastritis, hyperglycemia, hypertension, encephalopathy with steroid. (6) AIDS: HIV/AIDS (with recent pneumocystis pneumonia) : The patient has a history of HIV with suspected AIDS, previously non-adherent to ART, and recently diagnosed with pneumocystis pneumonia. The patient is currently on Bactrim and prednisone for pneumocystis, with ART planned to be restarted after initial infection treatment. Azithromycin is being used for MAC prophylaxis. The patient is immunocompromised and at risk for opportunistic infections. Sputum cultures previously showed yeast (treated with fluconazole), and other infectious workup (cryptococcus, mycobacteria, TB) has been negative or pending. - Continue Bactrim and prednisone for pneumocystis pneumonia. - Continue azithromycin for MAC prophylaxis. - Delay ART initiation until pneumocystis treatment is underway. - Monitor for new or worsening infections. - Will obtain CT of the chest per discussion with ID to follow-up on progress with regards to PCP given still dyspnea and hypoxia. - He should further follow-up with ID in office, has an appointment March 29 (7) Anasarca: As above. Lower extremity edema and ascites : The patient has chronic lower extremity swelling and ascites, likely secondary to right heart failure and venous congestion. The provider notes that this is multifactorial, related to heart failure, valvular disease, and possible venous obstruction below the IVC filter. Discussed with him. - assess IVC US, LE duplex US - Monitor for worsening edema and ascites. - Compression device ordered for lower extremity edema. (8) Hyperbilirubinemia: Discussed with him. No abdominal pain. No right upper quadrant tenderness. Peralta negative on exam. Suspect this may be secondary to congestive hepatopathy with portal hypertension, and/or cholestasis after dialysis. Discussed possible effect of Bactrim. Will obtain gallbladder ultrasound Follow-up liver parameters (9) Hypoxia: Pulmonary hypertension (suspected) : The patient is at risk for pulmonary hypertension due to HIV/AIDS, chronic heart failure, and possible prior thromboembolic disease. The provider is considering a VQ scan to evaluate for pulmonary embolism, as the patient has an IVC filter and prior imaging showed lack of flow below the filter. The VQ scan is chosen due to allergy to iodinated contrast. - Order VQ scan to evaluate for pulmonary embolism. - Order ultrasound of legs and lower abdominal veins to assess for DVT or venous obstruction. CHF and valvular heart disease as above PCP pneumonia as above Plan Pancytopenia/myelodysplasia : The patient has chronic pancytopenia and myelodysplasia, likely related to HIV/AIDS and possibly medication effects. The provider is monitoring blood counts and sending additional tests to evaluate for hemolysis and other causes of cytopenias. - Monitor CBC and blood counts. - Send additional labs to evaluate for hemolysis. Allergies (iodinated contrast, lorazepam) : The patient has documented allergies to iodinated contrast and lorazepam. - Avoid iodinated contrast in imaging studies. - Avoid lorazepam. PDMP PDMP Reviewed: Not Reviewed Attestations 2 Medical Necessity Statement*: Place in observation for additional assessment and management of worsening acute anemia, acute congestive heart failure in a gentleman with ESRD on dialysis, AIDS, PCP pneumonia, further assessment of suspected pulmonary hypertension, assessment of lower extremity edema and possible lower IVC occlusion, additional comorbidities as above. and High MDM includes amount and/or complexity of data reviewed/ordered [ previous or external records, resulted lab(s)/test(s), ordered lab(s)/test(s) and other healthcare professional discussion] and described risk of complication, morbidity or mortality of management as documented Diagnoses Anemia D64.9 Pancytopenia D61.818 ESRD (end stage renal disease) on dialysis N18.6; Z99.2 Congestive heart failure due to cardiomyopathy I50.9; I42.9 Pneumocystis jiroveci pneumonia B59 AIDS B20 Anasarca R60.1 Hyperbilirubinemia E80.6 Hypoxia R09.02
--- NOTE | 2025-03-21 15:06 | PM.CONSULT ---
Providers/Reason For Consult Consulting Physician/Specialty*: deonte florez md / telenephrology Reason for Consult*: ESRD care. Requesting Physician: Dr Estrada Attending Physician: Negro Rosado Primary Care Provider: Ethel White MD History of Present Illness History of Present Illness Vivek Harden is a 39 year old male history of severe tricuspid regurgitation, HIV- AIDS, atrial fibrillation, nonischemic cardiomyopathy, ascites, pancytopenia, recent fungal pneumonia. Patient has end-stage renal disease on dialysis Friday and Friday. Patient presented from dialysis today as he is pancytopenic and still short of breath and severe ascites. Patient also has nausea weakness poor appetite and chest pain Review of Systems Narrative: Nausea chest pain poor appetite palpitations, swelling, ascites, leg edema Medications/Allergies Home Medications ?Medication ?Instructions ?Recorded ?Confirmed ?Last Taken ?Type albuterol sulfate 2.5 mg/3 mL 2.5 mg (3 mL) inhalation QID PRN 02/17/25 03/21/25 Unknown Rx (0.083 %) solution for nebulization wheezing #90 mL bictegravir 50 mg-emtricitabine 1 tab PO DAILY 30 days #30 tabs 02/27/25 03/21/25 03/20/25 Rx 200 mg-tenofovir alafenam 25 mg tablet (Biktarvy) azithromycin 250 mg tablet 1,500 mg (6 x 250 mg) PO WEEKLY 4 03/08/25 03/21/25 Unknown Rx weeks #36 tabs colchicine 0.6 mg tablet 0.3 mg (1/2 x 0.6 mg) PO TuTh 30 03/08/25 03/21/25 03/17/25 Rx days #5 tabs fluconazole 100 mg tablet 100 mg PO DAILY #30 tabs 03/08/25 03/21/25 Unknown Rx midodrine 5 mg tablet 10 mg (2 x 5 mg) PO TID 30 days 03/08/25 03/21/25 03/20/25 Rx #180 tabs sulfamethoxazole 800 2 tab PO BID 21 days #84 tabs 03/08/25 03/21/25 Unknown Rx mg-trimethoprim 160 mg tablet PORTABLE OXYGEN #1 ea 03/09/25 03/21/25 Unknown Rx amiodarone 200 mg tablet (Pacerone) 200 mg PO DAILY #90 tabs 03/17/25 03/21/25 03/20/25 Rx compression hose #1 ea 03/17/25 03/21/25 Unknown Rx prednisone 20 mg tablet See Rx Instructions .Route .COMPLEX 03/21/25 03/21/25 03/20/25 History Allergies Allergy/AdvReac Type Severity Reaction Status Date / Time Iodinated Contrast Media Allergy Unknown Verified 03/21/25 09:49 lorazepam (From Ativan) Allergy ADR-Irritab Verified 03/21/25 09:49 le Current Medications Generic Name Dose Route Start Last Admin Trade Name Eufemia PRN Reason Stop Dose Admin Pantoprazole Sodium 40 mg 03/21/25 12:10 03/21/25 13:[address] 40 Mg Tablet PO 40 mg DAILY MIGUEL Administration PFSH Acute PFSH: Medical History (Updated 03/21/25 @ 14:32 by Negro Rosado MD) Syphilis AIDS Moderate to severe mitral regurgitation Valvular heart disease Noncompliance Tricuspid regurgitation Atrial fibrillation Nonischemic cardiomyopathy Deep vein thrombosis of left lower extremity Cardiac arrest Hemoptysis Sleep apnea Hyperkalemia Anemia in chronic kidney disease ESRD (end stage renal disease) on dialysis AV fistula HIV carrier History of testicular cancer Treated with orchiectomy, chemotherapy, and retroperitoneal lymph node dissection Surgical History History of inferior vena caval filter placement History of abdominal surgery (05/2009) Retroperitoneal lymph node dissection History of orchiectomy, unilateral (09/2008) Right unilateral orchiectomy with right inguinal lymph node biopsy S/P hemodialysis catheter insertion (11/30/20) R IJ catheter exchange History of removal of Port-a-Cath Family History Mother Stroke Denies family history of Anesthesia complication Bleeding disorder Social History Smoking and tobacco/nicotine status: former use of tobacco/nicotine Quit status (tobacco/nicotine): has quit using Year quit tobacco: 6 + years Former quit date comment: Smoker for 20+ years Alcohol intake: never Substance/Drug Use: current Adopted: No Caregiver/support person: Yes Lives independently: Yes Housing: House Current occupational status: disabled Pets and animals: No Sexually active: Yes Do you think of yourself as: Straight/Heterosexual Current gender identity: Male Josefa/Religious: Yazdanism Vitals/I&O/Wt Last Vital Signs Temp 98.1 F 03/21/25 09:45 Pulse 106 H 03/21/25 13:48 Resp 22 H 03/21/25 09:45 BP 118/89 03/21/25 13:48 Pulse Ox 100 03/21/25 13:48 O2 Del Method Nasal Cannula 03/21/25 14:13 O2 Flow Rate 2 03/21/25 13:30 Weight last 48 hrs Weight 58.967 kg Weight 58.967 kg Physical Exam Narrative: Patient is lying in bed using nasal cannula oxygen he says he uses at home Vital signs noted, blood pressure 118/89. Heart rate is tachycardic and irregular. Neck is supple Lungs dull bases otherwise clear. Heart irregular regular positive S1-S2. Abdomen is soft distended positive ascites extremities bilateral leg edema. Neuro awake alert oriented x 3 Data 03/21/25 10:34 03/21/25 10:34 A&P Assessment and plan (1) ESRD (end stage renal disease) on dialysis: 50-year-old man history of ESRD HIV orchiectomy inferior vena caval filter, atrial fibrillation, nonischemic cardiomyopathy A.ESRD- HD MWF- we Will assess in the a.m. for extra dialysis. Please ensure he is stable after thoracentesis and blood transfusion. Please keep patient on low potassium diet. 1. Atrial fibrillation discussed with cardiology if they want adjust any of his medications 2. Ascites effusions would recommend paracentesis if possible. 3. Anemia agree with blood transfusion. I am concerned if this is due to medications or to her underlying HIV. Consider a bone marrow biopsy if her platelets do not continue to improve. If they continue to improve we will watch them clinically. Continue Epogen on dialysis 4. Thrombocytopenia platelets are better than his baseline. However platelets have been dropping over the last half year questions this is due to his HIV or medication. Please have patient follow-up with hematology. It is also possible be from hepatosplenomegaly. 5. 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 please discuss w/ hospital pharmacist.. The patient was seen examined using audiovisual equipment with the aid of a nurse. The patient consented to hemodialysis. The patient consented to telemedicine. Medications reviewed Plan See above PDMP PDMP Reviewed: Not Reviewed Consult Attestations Medical Necessity Statement: End-stage renal disease anemia thrombocytopenia Time Spent in Patient Care: Greater than 35 minutes (>than 50% of time spent in counselling and/or direct pt care on unit). Coding Level of Care Code Acute Code for [facility] Fwd Diagnoses ESRD (end stage renal disease) on dialysis N18.6; Z99.2
[2025-03-21] MEDS: fluconazole 100 mg Tablet PO (15:13)
[2025-03-21] MEDS: amiodarone 200 mg Tablet PO (15:13)
[2025-03-21] MEDS: midodrine 5 mg TABLET 10 MG PO ×2 (15:13→21:41)
[2025-03-21] MEDS: predniSONE 20 mg Tablet PO (15:13)
[2025-03-21] MEDS: nitroglycerin 0.4 mg sublingual Tablet SUBLINGUAL ×3 (15:33→15:51)
[2025-03-21] MEDS: acetaminophen 325 mg Tablet 650 MG PO (15:33)
[2025-03-21 16:35] LABS: Troponin(5th) Baseline 108 ng/L (0-15)
--- NOTE | 2025-03-21 16:57 | ECG_ITS ---
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 Measurements Intervals [place] Rate: 98 P: 75 GA: 188 QRS: 9 QRSD: 103 T: 81 QT: 396 QTc: 507 Interpretive Statements SINUS RHYTHM LOW QRS VOLTAGE IN EXTREMITY LEADS [QRS DEFLECTION < 0.5 mV IN LIMB LEADS] NONSPECIFIC T-WAVE ABNORMALITY Compared to ECG 03/21/2025 15:16:07 Ventricular premature complex(es) no longer present T-wave abnormality still present Electronically Signed On 03-22-2025 17:46:29 CDT by Elgin Lewis M.D. [email or web address]
[2025-03-21] MEDS: morphine 4 mg/mL SDV 1 mL 1 MG IVP (17:04)
[2025-03-21] MEDS: guaiFENesin 600 mg Tablet PO (17:05)
[2025-03-21] MEDS: lidocaine 5% Patch 1 PATCH TOPICAL (17:05)
[2025-03-21] MEDS: sulfamethoxazole-trimeth DS 160-800 mg Tablet 2 TAB PO (17:05)
[2025-03-21] MEDS: benzonatate 100 mg Capsule 200 MG PO (17:05)
[2025-03-21 19:03] LABS: Basophils % 0.9 %; Eosinophils % 1.2 %; Lymphocytes # 0.2 10^3/uL (0.8-4.8); Lymphocytes % 5.9 %; Mean Corpuscular HGB Conc 29.2 g/dL (30-55); Mean Corpuscular Hemoglobin 29.4 pg (27-33); Mean Corpuscular Volume 100.8 fl (82-101); Mean Platelet Volume 11.9 fL (7.4-10.4); Monocytes # 0.2 10^3/uL (0.2-0.9); Monocytes % 4.6 %; Neutrophils # 2.74 10^3/uL (1.8-7.7); Neutrophils % 84.9 %; Nucleated Red Blood Cells % 0 %; Platelet Count 56 10^3/cmm (157-399); Red Blood Count 2.48 10^6/uL (3.85-5.65); Red Cell Distribution Width 22.4 % (12.1-15.1); White Blood Count 3.23 10^3/uL (3.29-11.43)
[2025-03-21 19:33] LABS: Troponin 5 2HR 105.9 ng/L (0-15); Troponin 5 2HR Delta -2.1 ABS# (0-10)
--- NOTE | 2025-03-21 21:09 | ECG_ITS ---
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 Measurements Intervals [place] Rate: 97 P: 67 VA: 182 QRS: 9 QRSD: 92 T: 84 QT: 405 QTc: 517 Interpretive Statements SINUS RHYTHM WITH OCCASIONAL VENTRICULAR PREMATURE COMPLEXES LOW QRS VOLTAGE IN EXTREMITY LEADS [QRS DEFLECTION < 0.5 mV IN LIMB LEADS] NONSPECIFIC T-WAVE ABNORMALITY Compared to ECG 03/17/2025 16:44:52 Low QRS voltage now present Sinus tachycardia no longer present T-wave abnormality still present Electronically Signed On 03-22-2025 17:46:33 CDT by Elgin Lewis M.D. [email or web address]
[2025-03-21] MEDS: heparin drip 25,000 UNIT/500 ML PREMIX 11.8 UNIT IV (22:55)
--- NOTE | 2025-03-21 23:15 | PC.NURSE ---
pt asking for the knots on his back to rubbed, this nurse explained to pt that we cannot do that not knowing what is under the knot, pt stated I want a different nurse. Charge nurse notified and pt given to another nurse.
--- NOTE | 2025-03-21 23:17 | PC.NURSE ---
conversation with Ashlee Smart at the beginning of the shift consist of pt NOT TO RECEIVE ANY HEPARIN BOLUS AT ALL and heparin drip is customized for pt 10units/kg/hr. and if platelets is below 30K, to stop heparin drip. further instruction in message to nurse. heparin drip late due to platelet infusion and pt ref another IV line
[2025-03-22] VITALS (8 sets, daily range): BP systolic 99–117; BP diastolic 64–86; PULSE 68–99; RESP 17–20; TEMP 36.4–36.8; O2SAT 94–100
[2025-03-22 05:31] LABS: Hematocrit 24.6 % (37-53); Lymphocytes # 0.2 10^3/uL (0.8-4.8); Lymphocytes % 5.9 %; Mean Corpuscular HGB Conc 30.5 g/dL (30-55); Mean Corpuscular Hemoglobin 29.6 pg (27-33); Mean Corpuscular Volume 97.2 fl (82-101); Mean Platelet Volume 11.3 fL (7.4-10.4); Monocytes # 0.2 10^3/uL (0.2-0.9); Monocytes % 5.9 %; Neutrophils # 2.26 10^3/uL (1.8-7.7); Neutrophils % 83.8 %; Nucleated Red Blood Cells % 1.1 %; Platelet Count 77 10^3/cmm (157-399); Red Blood Count 2.53 10^6/uL (3.85-5.65); Red Cell Distribution Width 23.1 % (12.1-15.1)
[2025-03-22 05:40] LABS: Partial Thromboplastin Time 43.4 SECONDS (23.9-36.7)
[2025-03-22 05:50] LABS: Phosphorus 5.7 mg/dL (2.5-4.5)
[2025-03-22 06:05] LABS: 25 Hydroxy Vitamin D 8 ng/mL (30-100); Alanine Aminotransferase 16 U/L (0-41); Albumin Level 4.1 g/dL (3.5-5.2); Alkaline Phosphatase 129 U/L (40-130); Anion Gap 26.7 (5-19); Aspartate Amino Transferase 21 U/L (0-40); Blood Urea Nitrogen 45 mg/dL (6-20); Calcium 8.7 mg/dL (8.5-10.5); Carbon Dioxide 21 mmol/L (22-29); Chloride 92 mmol/L (98-107); Globulin 3.9 g/dL (1.3-4.6); Glomerular Filtration Rate 17.2 mL/min (90-130); Glucose 83 mg/dL (65-115); Osmolality Calculated 291 mOsm/kg (285-295); Potassium 4.7 mmol/L (3.5-5.1); Sodium 135 mmol/L (136-145); Total Bilirubin 2.2 mg/dL (0.15-1.2)
[2025-03-22 06:06] LABS: Calcium 8.8 mg/dL (8.5-10.5)
[2025-03-22 06:12] LABS: Parathyroid Hormone 150.8 pg/mL (15-65)
--- NOTE | 2025-03-22 09:43 | PC.NURSE ---
this nurse entered pts room to give him am meds, he requested to wait because he wanted to sleep.
--- NOTE | 2025-03-22 10:01 | P.PN_ITS ---
Subjective 2 Subjective: Patient remains in bed requiring nasal cannula oxygen. Distended abdomen and leg edema. The patient does not want extra dialysis. He is waiting for paracentesis. He denies nausea vomiting chills or itching or cramps. Medications: Reviewed: Yes Medication Review Details: Current Medications Acetaminophen (Acetaminophen 325 Mg Tablet) 650 mg PO Q6H PRN PRN Reason: Mild/Mod Pain Or Temp >/= 101 Last Admin: 03/21/25 15:33 Dose: 650 mg Amiodarone HCl (Amiodarone 200 Mg Tablet) 200 mg PO DAILY [facility] Last Admin: 03/21/25 15:13 Dose: 200 mg Azithromycin (Azithromycin 250 Mg Tablet) 1,500 mg PO WEEKLY [facility]; Protocol Benzonatate (Benzonatate 100 Mg Capsule) 200 mg PO TID PRN PRN Reason: COUGH Last Admin: 03/21/25 17:05 Dose: 200 mg Colchicine (Colchicine 0.6 Mg Tablet) 0.3 mg PO TuTh [facility] Fluconazole (Fluconazole 100 Mg Tablet) 100 mg PO DAILY [facility] Last Admin: 03/21/25 15:13 Dose: 100 mg Guaifenesin (Guaifenesin 600 Mg Tablet) 600 mg PO BID [facility] Last Admin: 03/21/25 17:05 Dose: 600 mg Heparin Sodium/Sodium Chloride (Heparin Drip) 25,000 unit in 500 mls @ 0 mls/hr IV CONT [facility]; Protocol On Hold: 03/22/25 07:46 Last Titration: 03/22/25 06:06 Dose: 10.01 unit/kg/hr, 11.8 mls/hr Sodium Chloride (Sodium Chloride 0.9%) 1,000 mls @ 0 mls/hr IV .Q0M PRN PRN Reason: hypotension or symptomatic Albumin Human (Albumin) 12.5 gm in 50 mls @ 60 mls/hr IV PRN PRN PRN Reason: Hypotension and/or symptomatic Lidocaine (Lidocaine 5% Patch) 1 patch TOPICAL [id number] [facility] Last Admin: 03/21/25 21:49 Dose: Not Given Midodrine (Midodrine 5 Mg Tablet) 10 mg PO TID [facility] Last Admin: 03/21/25 21:41 Dose: 10 mg Nitroglycerin (Nitroglycerin 0.4 Mg Sublingual Tablet) 0.4 mg SUBLINGUAL Q5M PRN PRN Reason: CHEST PAIN Last Admin: 03/21/25 15:51 Dose: 0.4 mg Non-Formulary Medication Biktarvy 50-200-25 Mg Tablet 1 each PO DAILY [facility] Ondansetron HCl (Ondansetron 2 Mg/Ml Sdv 2 Ml) 4 mg IVP Q8H PRN PRN Reason: vomiting, or N/V if npo Pantoprazole Sodium (Pantoprazole Dr 40 Mg Tablet) 40 mg PO DAILY [facility] Last Admin: 03/21/25 13:44 Dose: 40 mg Prednisone (Prednisone 20 Mg Tablet) 20 mg PO DAILY [facility] Last Admin: 03/21/25 15:13 Dose: 20 mg Sodium Chloride (Sodium Chloride 0.9% 100 Ml Bag) 50 ml IV PRN PRN PRN Reason: Blood transfusion prime and flush Stop: 03/22/25 11:53 Trimethoprim/Sulfamethoxazole (Sulfamethoxazole-Trimeth Ds 160-800 Mg Tablet) 2 tab PO BID [facility]; Protocol Last Admin: 03/21/25 17:05 Dose: 2 tab Vitals/I&O/Wt Last Vital Signs Temp 97.5 F L 03/22/25 08:00 Pulse 99 03/22/25 08:00 Resp 18 03/22/25 08:00 BP 117/75 03/22/25 08:00 Pulse Ox 100 03/22/25 08:00 O2 Del Method Nasal Cannula 03/22/25 08:00 O2 Flow Rate 4 03/22/25 08:00 03/21/25 03/22/25 03/22/25 22:59 06:59 14:59 Intake Total 1090 / 1090 968.763 / 2058.763 480 / 480 Output Total 500 / 500 Balance 1090 / 1090 468.763 / 1558.763 480 / 480 Weight last 48 hrs Weight 58.967 kg Weight 58.967 kg Weight 58.967 kg Physical Exam 2 Narrative: Patient is lying in bed using nasal cannula Vital signs noted, blood pressure 118/89. Heart rate is tachycardic and irregular. Neck is supple Lungs dull bases otherwise clear. Heart irregular regular positive S1-S2. Abdomen is soft distended positive ascites extremities bilateral leg edema. Neuro awake alert oriented x 3 Data 03/22/25 05:13 03/22/25 05:13 A&P Assessment and plan (1) ESRD (end stage renal disease) on dialysis: 50-year-old man history of ESRD HIV orchiectomy inferior vena caval filter, atrial fibrillation, nonischemic cardiomyopathy A.ESRD- HD MWF- repeat dialysis tomorrow. -for thoracentesis today. 1. Atrial fibrillation rate control as per cardiology and medicine 2. Ascites and effusions would recommend paracentesis if possible. 3. Anemia: Patient received lood transfusion yesterday. I am concerned if this is due to medications or to her underlying HIV. Consider a bone marrow biopsy if her platelets do not continue to improve. If they continue to improve we will watch them clinically. Continue Epogen on dialysis 4. Thrombocytopenia platelets are better than his baseline. However platelets have been dropping over the last half year questions this is due to his HIV or medication. Please have patient follow-up with hematology. It is also possible be from hepatosplenomegaly. 5. 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 please discuss w/ hospital pharmacist.. 6. Monitor phosphorus on binders. Replace vitamin D. PTH 151 no need for alpha D3 or Zemplar. -Monitor TSH. The patient was seen examined using audiovisual equipment with the aid of a nurse. The patient consented to hemodialysis. The patient consented to telemedicine. Medications reviewed Plan See above PDMP PDMP Reviewed: Not Reviewed Attestations 2 Medical Necessity Statement*: Anemia, HIV, ESRD, severe ascites and effusions Time Spent in Patient Care: 16 - 35 minutes (>than 50% of time sp ent in counselling and/or direct pt care on unit) . Coding Level of Care Code Acute Code for Chg Fwd Diagnoses ESRD (end stage renal disease) on dialysis N18.6; Z99.2
--- NOTE | 2025-03-22 10:23 | PC.CHAP ---
Pastoral Care Encounter/Spiritual Assessment Type of Contact [] Declined insurance actuary visit [] Patient/Family/Request visit [] Outpatient visit [] Follow-up visit [] Physician referral [] Code/Alert [x] Routine visit [] Staff referral [] Actively dying [x] Patient sleeping [] Family support [] [] Out of room [] Palliative care [] [] Receiving care in room [] Pre-surgical visit [] Trauma [] Long length of stay [] ICU visit [] Other: Relational/Emotional Strength [] Patient feels connected with others/family/visitors/staff [] Distress [] Loneliness/isolation [] Abandonment Spirituality of Patient [] Person of Josefa [] Attends Shinto of their [place] [] Believes in Prayer [] Reads Bible or Yazidism materials [] There are Spiritual issues to be addressed Coupon Clerk Interventions [] Prayer [] Active listening [] Non-anxious presence [] Spiritual/emotional support [] Crisis/trauma care [] Spiritual counseling [] Bereavement support [] Provided bereavement packet [] Provided Bible/devotional materials [] Provided toy/stuffed animal, coloring book to patient or family member [] Provided Communion [] Anointing/[place] [] Salvation [] Completed spiritual assessment [] Other: Impact on Illness or Injury [] Angry [] Fearful [] Anxious [] Often cries [] Exhaustion [] Unable to work [] Unable to attend jain [] Unable to walk/stand [] Unable to read [] Unable to drive [] Unable to eat/drink [] Unable to sleep [] Unable to be with family [] Patient intubated [] Other: Summary Time spent with patient
[2025-03-22 11:21] LABS: Partial Thromboplastin Time 31.2 SECONDS (23.9-36.7)
--- NOTE | 2025-03-22 12:03 | P.PN_ITS ---
Subjective 2 Subjective: He is feeling similarly today. Undergoing paracentesis, abdomen feels better already with reducing distention. He slept earlier and did not take his medication, but states that he is going to take them now. Vitals/I&O/Wt Last Vital Signs Temp 97.9 F 03/22/25 11:09 Pulse 91 03/22/25 11:09 Resp 17 03/22/25 11:09 BP 104/82 03/22/25 11:09 Pulse Ox 94 03/22/25 11:09 O2 Del Method Nasal Cannula 03/22/25 11:09 O2 Flow Rate 4 03/22/25 08:00 03/21/25 03/22/25 03/22/25 22:59 06:59 14:59 Intake Total 1090 / 1090 968.763 / 2058.763 480 / 480 Output Total 500 / 500 Balance 1090 / 1090 468.763 / 1558.763 480 / 480 Weight last 48 hrs Weight 58.967 kg Weight 58.967 kg Weight 58.967 kg Physical Exam 2 Const: COMMON NORMALS: patient oriented x3 and alert GENERAL APPEARANCE: c ooperative ORIENTATION/CONSCIOUSNESS: Yes awake HENMT: COMMON NORMALS: oropharynx normal Neck/C-Spine: COMMON NORMALS: no JVD Resp: COMMON NORMALS: normal respiratory effort and clear to auscultation bilaterally AUSCULTATION: clear to auscultation bilaterally Cardio: COMMON NORMALS: no JVD, regular rhythm, S1 normal heart sound present, S2 normal heart sound present and No murmurs present (Cardio) RHYTHM: regular rhythm HEART SOUNDS: S1 normal heart sound present and S2 normal heart sound present GI: COMMON NORMALS: Normal to inspection, nondistended, normoactive bowel sounds present, Soft to palpation and non-tender PALPATION: Yes Soft to palpation OTHER: Decreasing abdominal distention Extremity: COMMON NORMALS: no joint enlargement GENERAL: Yes edema (2+) Neuro: COMMON NORMALS: patient oriented x3 and moves all extremities S ENSORIUM/ORIENTATION: Yes alert Skin: COMMON NORMALS: no rashes or lesions noted GENERAL SKIN EXAM: no rashes or lesions noted RASHES: no rashes Data 03/22/25 05:13 03/22/25 05:13 A&P Assessment and plan (1) Anemia: With good response to transfusion hemoglobin came up to 7.5. Platelets rechecked 77. Heparin transiently held due to paracentesis. Discussed with him subsequent trial of resuming anticoagulation with Lovenox. Reassessing blood counts again in the morning. Follow-up anemia and pancytopenia with primary provider. In case of lack of improvement with initiation of HIV therapy will need bone marrow exam. Reviewed LDH, haptoglobin, reticulocyte. Peripheral smear still pending. Repeat CBC. - Requested Hemoccult. Cont PPI with prednisone. Monitor for risk of C. difficile. Discussed with nursing, trimming caser. (2) VTE (venous thromboembolism): As per discussion with him, resume anticoagulation after paracentesis. Monitor with risk of bleeding. Reassess blood counts in the morning. 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 Worsened anemia as above. Platelets are somewhat better from before. Will need to follow-up with primary provider. Would anticipate improvement with initiation of antiretroviral therapy, or, if not improving will need bone marrow evaluation. (4) ESRD (end stage renal disease) on dialysis: Reviewed nephrology note. Plan for his usual dialysis tomorrow with paracentesis today. Had hemodialysis today. Normally MWF. However, with needing transfusion as well as with noted fluid overload, acute systolic and diastolic congestive heart failure with peripheral edema, ascites, a lot of fluid around the liver and kidneys on CT, will need additional dialysis. Discussed with him. Appreciate nephrology consultation. Blood pressure soft. Monitor for risk of further hypotension. Continue midodrine. Monitor vitals. (5) Congestive heart failure due to cardiomyopathy: Paracentesis today. Dialysis tomorrow. Monitor blood pressure with risk of hypotension. Requested peritoneal fluid studies including analysis, Gram stain culture, noted pink color to the fluid, requested adenosine deaminase. Acute systolic and diastolic congestive heart failure with anasarca. With valvular heart disease. With suspected pulmonary hypertension secondary to heart disease and HIV. Component of right heart failure. Discussed with him. The patient has severe CHF with ejection fraction of 32%, moderate to severe mitral regurgitation, mild aortic stenosis, and tricuspid regurgitation. The patient is at risk for fluid overload, especially with transfusion. The provider notes ongoing management and monitoring, with possible need for additional dialysis. The patient is on amiodarone for atrial fibrillation. - Consult nephrology for dialysis management post-transfusion. (6) Pneumocystis jiroveci pneumonia: On Bactrim and prednisone, as below. On 3 L nasal cannula oxygen. So far has not weaned down. Still with dyspnea. Additional assessment requested as discussed with him with CT chest. Monitor for risk of worsening liver dysfunction/cholestasis, electrolyte abnormalities with Bactrim. Monitor for risk of gastritis, hyperglycemia, hypertension, encephalopathy with steroid. Bothered by chest pain with cough, scheduled Tessalon. Had Robitussin. Lidocaine patch. Has been needing intermittent morphine, discussed with him not good for repeat/long-term management, risks. He verbalized understanding. Has been used as intermittent one-time doses. States codeine makes him very angry. (7) AIDS: Discussed with ID, initiated antiretroviral therapy at discharge. Follow-up in clinic March 29. HIV/AIDS (with recent pneumocystis pneumonia) : The patient has a history of HIV with suspected AIDS, previously non-adherent to ART, and recently diagnosed with pneumocystis pneumonia. The patient is currently on Bactrim and prednisone for pneumocystis, with ART planned to be restarted after initial infection treatment. Azithromycin is being used for MAC prophylaxis. The patient is immunocompromised and at risk for opportunistic infections. Sputum cultures previously showed yeast (treated with fluconazole), and other infectious workup (cryptococcus, mycobacteria, TB) has been negative or pending. - Continue Bactrim and prednisone for pneumocystis pneumonia. - Continue azithromycin for MAC prophylaxis. - Delay ART initiation until pneumocystis treatment is underway. - Monitor for new or worsening infections. - Reviewed and discussed with him CT of the chest per discussion with ID to follow-up on progress with regards to PCP given still dyspnea and hypoxia. - He should further follow-up with ID in office, has an appointment March 29 (8) Anasarca: As above. Lower extremity edema and ascites : The patient has chronic lower extremity swelling and ascites, likely secondary to right heart failure and venous congestion. The provider notes that this is multifactorial, related to heart failure, valvular disease, and possible venous obstruction below the IVC filter. Discussed with him. - Reviewed IVC US, LE duplex US, discussed with him - Monitor for worsening edema and ascites. - Compression device ordered for lower extremity edema. (9) Hyperbilirubinemia: Reviewed gallbladder ultrasound. Noted cholelithiasis. Suspect this is related to congestive changes. No abdominal pain. Discussed with him. No abdominal pain. No right upper quadrant tenderness. Peralta negative on exam. Suspect this may be secondary to congestive hepatopathy with portal hypertension, and/or cholestasis after dialysis. Discussed possible effect of Bactrim. Will obtain gallbladder ultrasound Follow-up liver parameters (10) Hypoxia: Pulmonary hypertension (suspected) : The patient is at risk for pulmonary hypertension due to HIV/AIDS, chronic heart failure, and possible prior thromboembolic disease. The provider is considering a VQ scan to evaluate for pulmonary embolism, as the patient has an IVC filter and prior imaging showed lack of flow below the filter. The VQ scan is chosen due to allergy to iodinated contrast. - Reviewed and discussed with him VQ scan to evaluate for pulmonary embolism. - Reviewed ultrasound of legs and lower abdominal veins to assess for DVT or venous obstruction. CHF and valvular heart disease as above PCP pneumonia as above Plan Allergies (iodinated contrast, lorazepam) : The patient has documented allergies to iodinated contrast and lorazepam. - Avoid iodinated contrast in imaging studies. - Avoid lorazepam. PDMP PDMP Reviewed: Not Reviewed Attestations 2 Medical Necessity Statement*: Admission of over 2 midnights has been needed for assessment management of pancytopenia, acute systolic and diastolic CHF with cardiomyopathy, valvular heart disease, ESRD on dialysis, extensive DVT, in a gentleman with AIDS. and High MDM includes amount and/or complexity of data reviewed/ordered [ previous or external records, resulted lab(s)/test(s), ordered lab(s)/test(s) and other healthcare professional discussion] and described risk of complication, morbidity or mortality of management as documented Diagnoses Anemia D64.9 VTE (venous thromboembolism) I82.90 Pancytopenia D61.818 ESRD (end stage renal disease) on dialysis N18.6; Z99.2 Congestive heart failure due to cardiomyopathy I50.9; I42.9 Pneumocystis jiroveci pneumonia B59 AIDS B20 Anasarca R60.1 Hyperbilirubinemia E80.6 Hypoxia R09.02
--- NOTE | 2025-03-22 12:23 | NM_ITS ---
WS: [id number] NUCLEAR MEDICINE VENTILATION/PERFUSION LUNG SCAN HISTORY: assess for PE /CTEPH COMPARISON: Chest radiograph 03/21/2025 TECHNIQUE: Ventilation: 32.7 mCi of Technetium 99 DTPA aerosol inhaled. Perfusion: 5.4 mCi of technetium 99m MAA IV. Marked deposition of radionuclide in the central bronchial tree during ventilation. Lungs are poorly ventilated. Much better perfusion to both lungs as compared to the ventilation. There is a large defect associated with the cardiac shadow. No matched unexplainable defects are identified. NM/NM pul vent and perfus* [id number] IMPRESSION: Low probability of pulmonary embolism.
[2025-03-22] MEDS: ipratropium-albuterol 3 mL Neb INHALATION (13:57)
[2025-03-22] MEDS: predniSONE 20 mg Tablet PO (15:30)
[2025-03-22] MEDS: pantoprazole DR 40 mg Tablet PO (15:30)
[2025-03-22] MEDS: midodrine 5 mg TABLET 10 MG PO ×2 (15:30→20:07)
[2025-03-22] MEDS: colchicine 0.6 mg Tablet 0.3 MG PO (15:30)
[2025-03-22] MEDS: fluconazole 100 mg Tablet PO (15:30)
[2025-03-22] MEDS: amiodarone 200 mg Tablet PO (15:30)
--- NOTE | 2025-03-22 15:38 | US_ITS ---
WS: [id number] ULTRASOUND-GUIDED PARACENTESIS CLINICAL INFORMATION: ascites Procedure Informed consent: The risks, benefits, and alternatives of the procedure were discussed with the patient. Verbal and written consent was obtained. Timeout: A timeout was performed to confirm the correct patient, procedure, and site. Preparation: A suitable skin site was identified. The patient was prepped and draped in usual sterile fashion. Lidocaine 1% was used for local anesthesia. Catheter: 4 Ken[place] One-step Yueh catheter. Side: RIGHT lower quadrant. Fluid Volume: 3000 ml Color: Clear yellow DISPOSITION: Discarded safely. Complications: None. US/US paracentesis abd w [id number] IMPRESSION: Uncomplicated ultrasound-guided paracentesis. Removal of 3000 cc
[2025-03-22 16:00] LABS: Cyto Order Verification No Order
[2025-03-22 16:01] LABS: Apprearance, Body Fluid CLOUDY; Color, Body Fluid AMBER; PATH Referral YES
[2025-03-22 16:07] LABS: Body Fluid Polynuclear #Cells 0.241; Body Fluid WBC 402 /uL; Monocytes # Body Fluid 0.161
[2025-03-22 16:30] LABS: Fluid Laterality ASCITES
[2025-03-22] MEDS: morphine 4 mg/mL SDV 1 mL 1 MG IVP (17:17)
[2025-03-22] MEDS: benzonatate 100 mg Capsule 200 MG PO (17:18)
[2025-03-22] MEDS: sulfamethoxazole-trimeth DS 160-800 mg Tablet 1 TAB PO (17:49)
[2025-03-22] MEDS: guaiFENesin 600 mg Tablet PO (17:49)
[2025-03-22] MEDS: lanolin oint 7 gm 1 APPLIC TOPICAL (23:33)
[2025-03-23] VITALS (7 sets, daily range): BP systolic 101–123; BP diastolic 77–89; PULSE 82–94; RESP 15–17; TEMP 36.4–36.6; O2SAT 95–100
[2025-03-23 05:20] LABS: Hematocrit 26.1 % (37-53); Lymphocytes # 0.2 10^3/uL (0.8-4.8); Lymphocytes % 5.8 %; Mean Corpuscular Hemoglobin 29.2 pg (27-33); Mean Corpuscular Volume 94.2 fl (82-101); Monocytes # 0.2 10^3/uL (0.2-0.9); Monocytes % 4.9 %; Neutrophils # 2.83 10^3/uL (1.8-7.7); Neutrophils % 87.1 %; Nucleated Red Blood Cells # 0.1 /100WBC; Nucleated Red Blood Cells % 2.2 %; Platelet Count 77 10^3/cmm (157-399); Red Blood Count 2.77 10^6/uL (3.85-5.65); Red Cell Distribution Width 22.5 % (12.1-15.1); White Blood Count 3.25 10^3/uL (3.29-11.43)
[2025-03-23 05:38] LABS: Alanine Aminotransferase 14 U/L (0-41); Albumin Level 3.9 g/dL (3.5-5.2); Alkaline Phosphatase 118 U/L (40-130); Anion Gap 28.4 (5-19); Aspartate Amino Transferase 22 U/L (0-40); Blood Urea Nitrogen 61 mg/dL (6-20); Calcium 9.2 mg/dL (8.5-10.5); Carbon Dioxide 21 mmol/L (22-29); Chloride 92 mmol/L (98-107); Globulin 4.3 g/dL (1.3-4.6); Glomerular Filtration Rate 13.2 mL/min (90-130); Glucose 100 mg/dL (65-115); Osmolality Calculated 299 mOsm/kg (285-295); Potassium 5.4 mmol/L (3.5-5.1); Sodium 136 mmol/L (136-145); Total Bilirubin 1.4 mg/dL (0.15-1.2); Total Protein 8.2 g/dL (6.6-8.7)
[2025-03-23 05:49] LABS: Phosphorus 7.9 mg/dL (2.5-4.5)
--- NOTE | 2025-03-23 08:55 | PC.CHAP ---
Pastoral Care Encounter/Spiritual Assessment Type of Contact [] Declined chinese instructor visit [] Patient/Family/Request visit [] Outpatient visit [] Follow-up visit [] Physician referral [] Code/Alert [] Routine visit [] Staff referral [] Actively dying [x] Patient sleeping [] Family support [] [] Out of room [] Palliative care [] [] Receiving care in room [] Pre-surgical visit [] Trauma [] Long length of stay [] ICU visit [] Other: Relational/Emotional Strength [] Patient feels connected with others/family/visitors/staff [] Distress [] Loneliness/isolation [] Abandonment Spirituality of Patient [] Person of Josefa [] Attends Moravian of their [place] [] Believes in Prayer [] Reads Bible or Voodoo materials [] There are Spiritual issues to be addressed Hardware Installer Interventions [] Prayer [] Active listening [] Non-anxious presence [] Spiritual/emotional support [] Crisis/trauma care [] Spiritual counseling [] Bereavement support [] Provided bereavement packet [] Provided Bible/devotional materials [] Provided toy/stuffed animal, coloring book to patient or family member [] Provided Communion [] Anointing/[place] [] Salvation [] Completed spiritual assessment [] Other: Impact on Illness or Injury [] Angry [] Fearful [] Anxious [] Often cries [] Exhaustion [] Unable to work [] Unable to attend confucianist [] Unable to walk/stand [] Unable to read [] Unable to drive [] Unable to eat/drink [] Unable to sleep [] Unable to be with family [] Patient intubated [] Other: Summary Time spent with patient
--- NOTE | 2025-03-23 09:02 | P.PN_ITS ---
Subjective 2 Subjective: No new complaints Medications: Reviewed: Yes Vitals/I&O/Wt Last Vital Signs Temp 97.9 F 03/23/25 07:17 Pulse 90 03/23/25 08:56 Resp 16 03/23/25 08:56 BP 101/77 03/23/25 07:17 Pulse Ox 95 03/23/25 08:56 O2 Del Method Nasal Cannula 03/23/25 08:56 O2 Flow Rate 4 03/23/25 08:56 03/22/25 03/23/25 03/23/25 22:59 06:59 14:59 Intake Total 680 / 1160 1100 / 2260 Output Total 400 / 400 Balance 680 / 1160 700 / 1860 Weight last 48 hrs Weight 58.967 kg Weight 58.967 kg Weight 58.967 kg Weight 58.967 kg Physical Exam 2 Narrative: Patient is awake alert, no distress, on O2 by nasal cannula No JVD HEENT S1-S2 regular rate and rhythm per report Lungs clear to auscultation bilaterally per report Abdomen soft nontender has pedal edema Data 03/23/25 05:09 03/23/25 05:09 Micro: Microbiology 03/22/25 13:30 Gram Stain - Final Ascites Fluid A&P Assessment and plan (1) ESRD (end stage renal disease) on dialysis: 50-year-old man history of ESRD HIV orchiectomy inferior vena caval filter, atrial fibrillation, nonischemic cardiomyopathy A.ESRD- HD MWF-HD today 1. Atrial fibrillation rate control as per cardiology and medicine 2. Ascites , status post paracentesis with 3 L removed. 3. Anemia: Will give Epogen with dialysis 4. Thrombocytopenia platelets are better than his baseline. However platelets have been dropping over the last half year questions this is due to his HIV or medication. Please have patient follow-up with hematology. It is also possible be from hepatosplenomegaly. 5. 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 6. Monitor phosphorus on binders. Replace vitamin D. PTH 151 no need for alpha D3 or Zemplar. -Monitor TSH. The patient was seen examined using audiovisual equipment with the aid of a nurse. The patient consented to hemodialysis. The patient consented to telemedicine. Medications reviewed Plan See above PDMP PDMP Reviewed: Not Reviewed Attestations 2 Medical Necessity Statement*: Per medicine team Coding Level of Care Code Acute Code for Chg Fwd Diagnoses ESRD (end stage renal disease) on dialysis N18.6; Z99.2
[2025-03-23] MEDS: enoxaparin 30 mg/0.3 mL Syringe SUBCUT (09:37)
[2025-03-23] MEDS: midodrine 5 mg TABLET 10 MG PO (09:38)
[2025-03-23] MEDS: predniSONE 20 mg Tablet PO (09:38)
[2025-03-23] MEDS: fluconazole 100 mg Tablet PO (09:38)
[2025-03-23] MEDS: guaiFENesin 600 mg Tablet PO (09:38)
[2025-03-23] MEDS: amiodarone 200 mg Tablet PO (09:38)
[2025-03-23] MEDS: sulfamethoxazole-trimeth DS 160-800 mg Tablet 1 TAB PO (09:38)
[2025-03-23] MEDS: pantoprazole DR 40 mg Tablet PO (09:39)
--- NOTE | 2025-03-23 11:20 | PM.DCS ---
Discharge Providers Date of Admission: 03/22/25 10:17 Date of Discharge: March 23, 2025 Attending Provider at Admission: Sincere Anguiano Attending Provider at Discharge: Sincere Anguiano Primary Care Provider: Ethel White MD Diagnoses at Discharge Discharge Diagnosis (1) ESRD (end stage renal disease) on dialysis: Status: Acute Reason for Visit Reason for Visit: sent from dialysis, abnormal labs Brief History: Vivek Harden is a 39 year old patient with a history of HIV (suspected AIDS), congestive heart failure (CHF) with ejection fraction of 32%, valvular heart disease (moderate to severe mitral regurgitation, mild aortic stenosis, tricuspid regurgitation), atrial fibrillation, and end-stage renal disease on hemodialysis (Friday, Friday, Friday). The patient was recently admitted for CHF and pulmonary infiltrates, AFibw RVR, diagnosed with pneumocystis pneumonia, and started on Bactrim and prednisone. He had not been on HAART, these were prescribed with a delay in restarting antiretroviral therapy (ART) for HIV due to initiating PCP treatment. The patient is also on azithromycin for MAC prophylaxis and fluconazole for yeast found in sputum. 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 The patient was sent to the hospital for blood transfusion and possible additional dialysis. The patient reports ongoing shortness of breath, uses home oxygen, and has noticed swelling in the legs. Denies new fevers, nausea, vomiting, or abdominal pain. No history of cholecystectomy. The patient is aware of prior IVC filter placement and has had ascites and lower extremity edema attributed to right heart failure. No mention of new neurological or gastrointestinal symptoms. The patient is agreeable to hospital admission for transfusion and further evaluation. Discussed with radiology regarding findings on duplex LE with extensive non-occlusive DVT and IVC images suggestive of thrombus on GB US. Reached out to [facility] vascular surgery, discussed with ultrasound to request to push images over. Discussed with on-call vascular surgeon consideration of thrombectomy. At this time given the condition, suspected at least partially chronic nature, as well as comorbidities, surgical intervention would not be advised. Recommendation for anticoagulation. Discussed with him consideration of anticoagulation, discussed consideration of half dose Lovenox versus lower target heparin drip. He is agreeable with the either. Discussed little bit more difficulties with reversal with Lovenox. Discussed risk of unforeseen bleeding. He states has had small amount of blood on blowing into the tissue with mucosal drying from oxygen. Without other bleed, although he is presenting with anemia discussed with him cannot exclude GI bleed. However, risk of bleeding may include other sites include intracranial with potentially severe disabling or life-threatening consequences. He understands, any other and also understands risk of complete occlusion of lower extremities, IVC, including possible severe complication, phlegmasia, complete loss of circulation/blood return from lower extremities, loss of extremities, severe disability and/or , understanding significant risks involved with both rods. On review of prior occasions he does seem to have tolerated heparin in the past it seems associated with dialysis. Brought up heparin drip, discussed with pharmacy, adjusted heparin protocol to fit targets of 40-70 without boluses, discussed with nursing staff. As per discussion with him this is for platelets above 30,000. In case platelets are dropping below 30,000 with switch to prophylactic dose heparin. Changed platelet checks to every 12 hours. Reviewed recheck platelets which discussed with him were done closer than intended but still after transfusion, 56,000. Humidifier added to nasal cannula oxygen. Instructed to let us know immediately in case of any bleed, in case of additional/worsened nasal bleed to also lean forward, hold pressure, not lean back, avoid inserting objects into nares. Hospital Course Hospital Course He received RBC transfusion. Hemoccult had been requested but not collected without BM. Without evidence of ongoing bleeding. Without evidence of hemolysis on assessment. Peripheral smear obtained, with pancytopenia with low trilineage cell population without platelet clumping and no circulating blasts. With finding of extensive nonocclusive lower extremity DVT some with acute component, as well as echogenicity and IVC suggestive of clot findings were further discussed with him and with vascular surgery, with surgical intervention not advisable at current time recommendation for anticoagulation. Discussing risks of bleeding with him due to fluctuating thrombocytopenia over the last year, sometimes as low as 24,000 just earlier this month, other times fluctuating between 30 and 50,000, discussed consideration of anticoagulation, half dose anticoagulation, prophylactic anticoagulation, risk of clot progression. He was started on heparin drip which he tolerated. Platelets without reduction so far. He is continued with half dose Lovenox at current time. If platelet levels maintaining without significant dips may be able to advance to full dose anticoagulation and consider switching to oral anticoagulation. He is continued on Bactrim, prednisone taper without worsening of GGO on CT with minimal improvement. T. bili with mild elevation on presentation so expected secondary to congestive hepatopathy which has improved with paracentesis and dialysis, T. bili with improvement to 1.4. Gallbladder ultrasound with incidentally noted cholelithiasis. He declined to continue hospitalization even with finding of self-limited run of VT. He does have an implanted ICD, although this could not be interrogated with equipment available here. He declined to stay any longer in the hospital, understanding risk of recurrent arrhythmia which may be life-threatening. Arrangements are made for him to follow-up with cardiology in office for reassessment and contact information has been provided to him to arrange for home interrogation of the device. He understands medication adherence on several discussions with him including the antibiotic for pneumocystis pneumonia with risk of progression, respiratory failure, prophylactic medications as well as initiating his HIV medication at discharge as discussed with otherwise risk of continued multiorgan effect including cardiomyopathy, bone marrow suppression, as well as immune suppression and risk of significant comorbidity, risk of , he has made it a priority to make sure he is compliant with treatment regimen. He has an appointment for follow-up with infectious disease on March 29. In case of lack of improvement of pancytopenia would benefit from further seeking bone marrow biopsy as discussed with him as well. As he had been adamant that he will not stay any longer, discharge was prepared and he left after dialysis. However, ascitic fluid later is also reported positive for cocci in pairs and rare gram-positive rods, rare WBC. No growth on culture so far. Per discussion with micro 1 of each organisms is seen on Gram stain. Contamination is possible, however, infection is not excluded as discussed with him. I discussed this finding with him and again encouraged him to return to continue hospitalization today including with addition of IV antibiotic for treatment of possible SBP pending exclusion of infection on culture results or arrangement of definitive treatment. He states that he is already on two antibiotics. Discussed that his current antibiotics might give partial coverage but also may not fully cover for this infection with explained risk of progression to sepsis, severe and/or disabling or life-threatening complications, including offered to help him arrange a ride to the hospital. He verbalized understanding, states would not be returning to the hospital today, but may return tomorrow. Physical Exam Const: COMMON NORMALS: patient oriented x3 and alert GENERAL APPEARANCE: cooperative ORIENTATION/CONSCIOUSNESS: Yes awake HENMT: COMMON NORMALS: oropharynx normal Neck/C-Spine: COMMON NORMALS: no JVD Resp: COMMON NORMALS: normal respiratory effort and clear to auscultation bilaterally AUSCULTATION: clear to auscultation bilaterally Cardio: COMMON NORMALS: no JVD, regular rhythm, S1 normal heart sound present, S2 normal heart sound present and No murmurs present (Cardio) RHYTHM: regular rhythm HEART SOUNDS: S1 normal heart sound present and S2 normal heart sound present GI: COMMON NORMALS: Normal to inspection, nondistended, normoactive bowel sounds present, Soft to palpation and non-tender PALPATION: Yes Soft to palpation OTHER: Abdominal distention resolved. Extremity: COMMON NORMALS: no joint enlargement and no pedal edema GENERAL: Yes edema (Trace) Neuro: COMMON NORMALS: patient oriented x3 and moves all extremities SENSORIUM/ORIENTATION: Yes alert Skin: COMMON NORMALS: no rashes or lesions noted GENERAL SKIN EXAM: no rashes or lesions noted Discharge Data Studies Completed and Pending Completed Studies During Hospitalization Category Date Time Status CT chest wo con [id number] Routine Cat Scan 03/21/25 13:43 Completed CXRP [XR chest 1V portable [id number]] Stat Exams 03/21/25 12:20 Completed NM pul vent and perfus* [id number] Routine Nuc Med 03/22/25 12:23 Completed US gall bladder [id number] Routine Ultrasound 03/21/25 12:23 [place] [id number] Routine Ultrasound 03/22/25 15:38 Completed US venous duplex lower extremity bilat [CV venous Ultrasound 03/21/25 13:28 [place] [id number]] Routine Pending at discharge Category Date Time Status Body Fluid Culture & GS Routine Lab 03/22/25 13:30 Results Complete Blood Count w/Auto AM LABS Lab 03/24/25 04:00 Ordered Comprehensive Metabolic Panel AM LABS Lab 03/24/25 04:00 Ordered Comprehensive Metabolic Panel AM LABS Lab 03/24/25 04:00 Ordered Occult Blood Stool [Immunochemical Fecal OCB] Routine Lab 03/21/25 12:06 Uncollected Peritoneal Fld Adenosine Deami Routine Lab 03/22/25 13:30 Received Phosphorus AM LABS Lab 03/24/25 04:00 Ordered Radiology Impressions Chest X-Ray 03/21/25 12:20 IMPRESSION: 1. Diffuse interstitial infiltrate noted throughout the RIGHT lung and the visualized upper LEFT lung. This could represent interstitial pulmonary edema or pneumonia. 2. Marked cardiac enlargement unchanged. Gallbladder Ultrasound 03/21/25 12:23 IMPRESSION: 1. There is echogenicity in the inferior vena cava which could represent venous thrombus. 2. Cholelithiasis. 3. Large ascites. ADDENDUM: 03/21/25 1824 COMMENT: THIS REPORT CONTAINS FINDINGS THAT MAY BE CRITICAL TO PATIENT CARE. The exam findings were verbally communicated by me to DR. SINCERE ANGUIANO via telephone conference at 6:22 PM CDT on 03/21/2025. The findings were acknowledged and understood. Venous Duplex 03/21/25 13:28 IMPRESSION: Diffuse nonocclusive deep venous thrombi in bilateral lower extremities. ADDENDUM: 03/21/25 1823 COMMENT: THIS REPORT CONTAINS FINDINGS THAT MAY BE CRITICAL TO PATIENT CARE. The exam findings were verbally communicated by me to DR. SINCERE ANGUIANO via telephone conference at 6:22 PM CDT on 03/21/2025. The findings were acknowledged and understood. Chest CT 03/21/25 13:43 IMPRESSION: 1. Mild bilateral hazy groundglass attenuation throughout the lungs. This can be noted with PCP. No focal consolidations. No pneumothorax. Minimal improvement since the prior study of 02/26/2025. 2. Small RIGHT pleural effusion. 3. Severe cardiomegaly. 4. Extensive atherosclerosis within the arteries of the thorax and upper abdomen. 5. Large amount of ascites. 6. IVC filter. Pulmonary Perfusion Imaging 03/22/25 12:23 IMPRESSION: Low probability of pulmonary embolism. Paracentesis Ultrasound 03/22/25 15:38 IMPRESSION: Uncomplicated ultrasound-guided paracentesis. Removal of 3000 cc Laboratory Results WBC 3.25 10^3/uL (3.29-11.43) L 03/23/25 05:09 RBC 2.77 10^6/uL (3.85-5.65) L 03/23/25 05:09 Hgb 8.10 g/dL (11.27-16.99) L 03/23/25 05:09 Hct 26.1 % (37-53) L 03/23/25 05:09 MCV 94.2 fl (82-101) 03/23/25 05:09 MCH 29.2 pg (27-33) 03/23/25 05:09 MCHC 31.0 g/dL (30-55) 03/23/25 05:09 RDW 22.5 % (12.1-15.1) H 03/23/25 05:09 Plt Count 77 10^3/cmm (157-399) L 03/23/25 05:09 MPV 12.0 fL (7.4-10.4) H 03/23/25 05:09 Neut % (Auto) 87.1 % 03/23/25 05:09 Lymph % (Auto) 5.8 % 03/23/25 05:09 Beltrami % (Auto) 4.9 % 03/23/25 05:09 Eos % (Auto) 0.0 % 03/23/25 05:09 Baso % (Auto) 0.0 % 03/23/25 05:09 Reticulocyte % (Auto) 1.9 % (0.5-2.0) 03/21/25 10:34 Neut # (Auto) 2.83 10^3/uL (1.8-7.7) 03/23/25 05:09 Lymph # (Auto) 0.2 10^3/uL (0.8-4.8) L 03/23/25 05:09 Beltrami # (Auto) 0.2 10^3/uL (0.2-0.9) 03/23/25 05:09 Eos # (Auto) 0.0 10^3/uL (0.0-0.8) 03/23/25 05:09 Baso # (Auto) 0.0 10^3/uL (0.0-0.1) 03/23/25 05:09 Nucleated RBC % (auto) 2.2 % 03/23/25 05:09 Nucleated RBCs # 0.1 /100WBC 03/23/25 05:09 Differential Comment Yes 03/22/25 13:30 Peripher Smr Path Cons Sent for review 03/21/25 10:34 Retic Production Index 1.04 03/21/25 10:34 Haptoglobin 69.0 mg/L (30-200) 03/21/25 10:34 APTT 31.2 SECONDS (23.9-36.7) 03/22/25 10:53 Sodium 136 mmol/L (136-145) 03/23/25 05:09 Potassium 5.4 mmol/L (3.5-5.1) H 03/23/25 05:09 Chloride 92 mmol/L (98-107) L 03/23/25 05:09 Carbon Dioxide 21 mmol/L (22-29) L 03/23/25 05:09 Anion Gap 28.4 (5-19) H 03/23/25 05:09 BUN 61 mg/dL (6-20) H 03/23/25 05:09 Creatinine 5.8 mg/dL (0.7-1.2) H* 03/23/25 05:09 GFR Calculation 13.2 mL/min (90-130) L 03/23/25 05:09 Glucose 100 mg/dL (65-115) 03/23/25 05:09 Calculated Osmolality 299 mOsm/kg (285-295) H 03/23/25 05:09 Calcium 9.2 mg/dL (8.5-10.5) 03/23/25 05:09 Phosphorus 7.9 mg/dL (2.5-4.5) H* D 03/23/25 05:09 Total Bilirubin 1.4 mg/dL (0.15-1.2) H 03/23/25 05:09 Direct Bilirubin 1.17 mg/dL (0.00-0.30) H 03/21/25 10:34 AST 22 U/L (0-40) 03/23/25 05:09 ALT 14 U/L (0-41) 03/23/25 05:09 Alkaline Phosphatase 118 U/L (40-130) 03/23/25 05:09 Lactate Dehydrogenase 302 U/L (135-225) H 03/21/25 10:34 Troponin T Baseline 108 ng/L (0-15) H* 03/21/25 16:08 Troponin T 120 Minute 105.9 ng/L (0-15) H 03/21/25 18:51 Delta Troponin T -2.1 ABS# (0-10) L 03/21/25 18:51 Troponin T Hi Sens 6Hr 102.0 ng/L (0-15) H 03/21/25 22:27 Troponin T Hi Sens 6Hr Delta -6.0 ng/L (0-12) L 03/21/25 22:27 Total Protein 8.2 g/dL (6.6-8.7) 03/23/25 05:09 Albumin 3.9 g/dL (3.5-5.2) 03/23/25 05:09 Globulin 4.3 g/dL (1.3-4.6) 03/23/25 05:09 25-OH Vitamin D Total 8 ng/mL (30-100) L 03/22/25 05:13 PTH Intact 150.8 pg/mL (15-65) H 03/22/25 05:13 Calcium (PTH Intact) 8.8 mg/dL (8.5-10.5) 03/22/25 05:13 Fluid Color Lida 03/22/25 13:30 Fluid Appearance Cloudy 03/22/25 13:30 Fluid WBC 402 /uL 03/22/25 13:30 Fluid RBC 12.000 10^3/uL 03/22/25 13:30 Fld Polynuclear WBCs # 0.241 03/22/25 13:30 Fld Polynuclear WBCs % 59.900 % 03/22/25 13:30 Fl Mononucl WBCs #(Auto) 0.161 03/22/25 13:30 Fl Mononuclear % Auto 40.100 % 03/22/25 13:30 Fld Crystal Laterality Ascites 03/22/25 13:30 Blood Type O Positive 03/21/25 10:57 Rho(D) Type Rh positive 03/21/25 10:57 Antibody Screen Negative 03/21/25 10:57 Crossmatch See Detail 03/21/25 10:57 Vitals Last Vital Signs Temp 97.5 F L 03/23/25 11:08 Pulse 94 03/23/25 11:08 Resp 15 03/23/25 11:08 BP 122/86 03/23/25 11:08 Pulse Ox 95 03/23/25 08:56 O2 Del Method Nasal Cannula 03/23/25 08:56 O2 Flow Rate 4 03/23/25 08:56 Discharge Plan Discharge Patient Disposition: Home Condition: Stable Prescriptions: New enoxaparin 30 mg/0.3 mL Syringe 30 mg SUBCUT Q12H Qty: 9 0RF Continued amiodarone [Pacerone] 200 mg tablet 200 mg PO DAILY Qty: 90 3RF (DME) PORTABLE OXYGEN See Rx Instructions .Route .MEDSUPPLY Qty: 1 0RF Rx Instructions: 3 L via nasal cannula, portable oxygen. (DME) compression hose See Rx Instructions .Route .MEDSUPPLY Qty: 1 0RF Rx Instructions: 20-30 mmHg Biktarvy 50-200-25 mg tablet 1 tab PO DAILY 30 Days Qty: 30 6RF azithromycin 250 mg Tablet 1,500 mg PO WEEKLY 28 Days Qty: 36 0RF fluconazole 100 mg Tablet 100 mg PO DAILY Qty: 30 0RF midodrine 5 mg Tablet 10 mg PO TID 30 Days Qty: 180 0RF colchicine 0.6 mg Tablet 0.3 mg PO TuTh 30 Days Qty: 5 0RF sulfamethoxazole-trimethoprim 800-160 mg Tablet 2 tab PO BID 21 Days Qty: 84 0RF Rx Instructions: for 21day albuterol sulfate 2.5 mg /3 mL (0.083 %) solution for nebulization 2.5 mg inhalation QID PRN (Reason: wheezing) Qty: 90 0RF prednisone 20 mg tablet See Rx Instructions .ROUTE .COMPLEX Rx Instructions: take 2 tablets BY MOUTH TWICE DAILY FOR 5 DAYS, ONE TABLET BY MOUTH DAILY FOR 5 DAYS, ONE TABLET DAILY for 11 DAYS Discharge Orders: Discharge Order (Routine); Ordered 03/23/25 Ordered By: Sincere Anguiano Referrals: Ethel White MD [Primary Care Provider, Family Practice] - 03/29/25 11:20 am Referral Note: Yoly Hinojosa FNP [Nurse Practitioner, Cardiology] - 1-3 days Referral Note: VFib run, ICD interrogation We have notified your physician's clinic of the need for a follow-up appointment to be scheduled. If you have not heard from them within the next 2 business days, please call them directly. Discharge Diet: As Directed Discharge Activity: Limit activity as instructed and Oxygen as instructed Patient Instructions: Enoxaparin (By injection), Fall Prevention (GEN), Patient Portal & Nhan Instructions Activity Restrictions/Additional Instructions: As discussed please continue antibiotics for pneumocystis infection/pneumonia as previously prescribed, continue to taper down prednisone. Continue prophylactic azithromycin. And please start Biktarvy as per discussion for HIV/AIDS. Follow-up with infectious disease in office as per plan on March 29. Have your primary doctor recheck your liver parameters and bilirubin. Continue Lovenox currently at 30 mg twice daily, follow-up with your primary doctor as discussed to reassess platelet levels and to see if they are remaining stable enough to be able to increase dose to therapeutic level. Or if the platelets are decreasing below 30,000 to decrease the dose to prophylactic dose. Take precautions to avoid any injury due to risk of bleeding. In case of noticing any bleeding, seek medical attention. Please continue taking amiodarone and follow up with cardiology for reassessment as discussed. We will keep you overnight in case you change your mind. Have cardiology team follow up the monitoring done by the defibrillator device. Have your primary doctor reassess your blood counts as well, if your blood counts are not increasing speak with your primary doctor about obtaining a bone marrow biopsy. In case of any difficulties or questions with your medications, reach out either to us or to your primary provider. Continue dialysis. Continue follow-up with cardiology in office with regards to cardiomyopathy and valvular heart disease. Seek medical attention in case of any worsening or new concerning symptoms. Discharge Attestations Time Spent in Discharge Care*: greater than 30 min Status at Discharge: Cognitive status at discharge: cognitively intact, Behavioral status at discharge: cooperative, Quality Metrics Clinical Quality Measures [ No reported AMI, CVA or VTE this stay] Coding Level of Care Code 25202 Total time (in minutes) for Discharge: 50 Diagnoses ESRD (end stage renal disease) on dialysis N18.6; Z99.2
--- NOTE | 2025-03-23 14:44 | PC.NURSE ---
pt d/c and heart care called to have him call to assist with his at home device not transmitting. pt stated he had nothing to write with. educ pt that he would need to call. the number is [phone].
[2025-03-25 21:18] LABS: Peritoneal Fld Adenosine Deami 9.6 U/L (<7.6)
== END 2025-03-23 14:30 | disposition home or self-care (01) | DRG 974 ==
LOC: ER 12:21 → MEDSURG 12:39
PROVIDERS: Internal Medicine Nephrology; Physician Assistant; Admitting Provider Internal Medicine; Emergency Provider Family Medicine; PCP Family Medicine; Visit Provider Internal Medicine
DX: B20 Human immunodeficiency virus [HIV] disease (principal); I50.43 Acute on chronic combined systolic (congestive) and diastolic (congestive) heart failure; B59 Pneumocystosis; N18.6 End stage renal disease; K65.2 Spontaneous bacterial peritonitis; I82.220 Acute embolism and thrombosis of inferior vena cava; I82.403 Acute embolism and thrombosis of unspecified deep veins of lower extremity, bilateral; I47.20 Ventricular tachycardia, unspecified; I42.8 Other cardiomyopathies; I08.3 Combined rheumatic disorders of mitral, aortic and tricuspid valves; K76.1 Chronic passive congestion of liver; I48.91 Unspecified atrial fibrillation; D63.1 Anemia in chronic kidney disease; I50.82 Biventricular heart failure; R09.02 Hypoxemia; Z85.47 Personal history of malignant neoplasm of testis; Z95.828 Presence of other vascular implants and grafts; Z90.79 Acquired absence of other genital organ(s); Z95.810 Presence of automatic (implantable) cardiac defibrillator; Z99.2 Dependence on renal dialysis; Z79.52 Long term (current) use of systemic steroids; Z91.041 Radiographic dye allergy status; Z88.8 Allergy status to other drugs, medicaments and biological substances; Z87.891 Personal history of nicotine dependence; Z91.148 Patient's other noncompliance with medication regimen for other reason; Z79.899 Other long term (current) drug therapy; Z92.21 Personal history of antineoplastic chemotherapy; Z99.81 Dependence on supplemental oxygen
CPT/HCPCS: 36415; 36430; 49083; 71045; 71250; 76705; 78014; 80053; 80503; 82248; 82306; 82310; 83010; 83615; 83970; 84100; 84311; 84484; 85014; 85025; 85045; 85730; 86850; 86900; 86920; 87070; 87075; 87205; 89050; 93005; 93970; 94640; 96372; 99285; A9540; A9567; G0378; J1644; J1650; J2270; J7512; J9999; P9035; P9040

== ENCOUNTER 2025-03-29 06:30 | Outpatient (RCR) | payer SELFPAY | END 2025-04-11 09:01 | disposition home or self-care (01) | LOC: TPT 06:30 | PROVIDERS: PCP Family Medicine; Visit Provider Student in an Organized Health Care Education/Training Program | DX: I50.9 Heart failure, unspecified (principal) | CPT/HCPCS: 99215 ==

== ENCOUNTER 2025-03-31 10:16 | Emergency (ER) | payer SELFPAY ==
--- OUTSIDE RECORDS SUMMARY | 2025-03-29 19:00 | XMS_ITS ---
Author Name Mely Rivera Address [address] [place] [address] Phone [phone] Organization [facility], NA DOCUMENT DISCLAIMER Multiple document versions may exist, please be sure you review the latest version. The information in the [facility] [place] Progress Note Document represents a providers documented clinical note containing certain health and medical information. It may not contain the complete medical history for the patient and should be independently verified. The represented time in the document is Eastern Time PROVIDER ROUNDING NOTE COMPREHENSIVE Patient:?Vivek?Dereck,?1985,?39y,?M Dialysis?Location:?[facility] Attending?Warehouse Guard:?Fany?Dereck Service?Date:?03/30/2025 Service?Provider:?Mely?Miguel,?REFERENCE DATA EXPERT I?met?face?to?face?with?the?patient?today. OVERVIEW The?patient?presented?with?ESRD?on?dialysis Primary?cause?of?renal?failure:?Hypertensive?chronic?kidney? disease?with?stage?1?through?stage?4?chronic?kidney?dis ease,?or?unspecified?chronic?kidney?disease Comments:?Vss,?seen?on?hd?machine,?reports?doing?well,? denies?concerns?for?me?today Continuing?struggles?with?ascites?and?cardiac?function.?? Has?had?an?upsetting?environment?change?at?home,?is?tra nsferring?to?[facility]?within?the?week? Medications?and?labs?reviewed. LAST?HOSPITALIZATION Discharge?Diagnosis:?D64.9?Anemia,?unspecified I50.20?Unspecified?systolic?(congestive)?heart?failure D61.818?Other?pancytopenia Admission?Date?6/24/25 Discharge?Date?03/23/25 Comments:?See?tcm?for?review?of?hospital?records DIALYSIS?PRESCRIPTION ??IHD?3x?Week?Start?date:?03/16/25 ??Dialyzer:?180NRe?Optiflux ??BFR:?450 ??DFR:?Autoflow?2 ??Potassium:?2.0 ??Sodium:?137 ??EDW:?60.9 ??Duration:?3:15 ??Calcium:?2.0 ??Bicarb:?37 ??Rx?updated?on:?03/16/2025 TREATMENT?ASSESSMENT Comments:?As?above BP?Stand?Pre ??03/25/2025:?110/78 BP?Sit?Pre ??03/30/2025:?112/89 ??03/28/2025:?108/83 ??03/25/2025:?98/72 BP?Stand?Post ??03/30/2025:?102/75 ??03/28/2025:?108/85 ??03/25/2025:?114/61 BP?Sit?Post ??03/30/2025:?128/82 ??03/28/2025:?111/80 ??03/25/2025:?109/79 Tx?Duration ??03/30/2025:?2:27 ??03/28/2025:?2:14 ??03/25/2025:?3:08 Missed?Treatments 0?-?last?30?days 0?-?last?60?days FLUID?ASSESSMENT Comments:?Challenge?based?on?BP.?On?midodrine?now. EDW?(kg) ??03/30/2025:?60.9 ??03/28/2025:?60.9 ??03/25/2025:?60.9 Weight?Pre?(kg) ??03/30/2025:?67.9 ??03/28/2025:?64.9 ??03/25/2025:?62.4 Weight?Post?(kg) ??03/30/2025:?66.8 ??03/28/2025:?63.4 ??03/25/2025:?60.6 PWV?(kg) ??03/30/2025:?5.9 ??03/28/2025:?2.5 ??03/25/2025:?-0.3 UF?Rate?(mL/kg/hr) ??03/30/2025:?6.7 ??03/28/2025:?10.6 ??03/25/2025:?9.5 ADEQUACY?ASSESSMENT Comments:?kt/v?>?1.2,?almost?1.4. Monitor No?new?labs?to?review spKt/V,?URR ??03/25/2025:?1.39,?70.0 ??03/16/2025:?1.31,?67.0 ??02/14/2025:?1.36,?71.0 ACCESS?ASSESSMENT ??Access?Type:?AVFistula ??Access?SubType:?Standard ??Access?Status:?Active?(In?Use)?-?12/11/2022 ??Access?Location:?Left?Forearm ??Created:?--/--/---- Flow ??03/09/2025:?791 ??02/18/2025:?675 ??02/16/2025:?647 ANEMIA?ASSESSMENT Comments:?Repeat?hospitalizations,?hgb?improving On?IV?iron?and?YAZMIN?protocol Recent?illness?in?the?hospital. HGB,?TSAT ??03/25/2025:?7.8,?23.0 ??03/18/2025:?6.9,?- ??03/16/2025:?7.2,?- ?? Ferritin ??03/25/2025:?903.0 ??03/09/2025:?7104.0 ??01/05/2025:?1474.0 Mircera,?IVP?(mcg) ??03/28/2025:?200 ??03/14/2025:?200 Iron?Sucrose?(Venofer)?(mg) ??01/24/2025:?50 ??01/17/2025:?50 ??01/10/2025:?50 BMM?ASSESSMENT Comments:?Phos?in?goal?on?redraw.?? Drawing?monthly?labs?today PTH,?Intact ??03/25/2025:?109.0 ??03/09/2025:?118.0 ??12/01/2024:?146.0 ?? Calcium,?Phosphorus ??03/25/2025:?8.8,?4.0 ??03/09/2025:?9.8,?8.5 ??02/02/2025:?9.0,?7.9 Vitamin?D?(Calcitriol)?Oral?(mcg) ??03/28/2025:?1.0 ??03/25/2025:?1.0 ??03/21/2025:?1.0 NUTRITION?ASSESSMENT Comments:?At?baseline?on?redraw. Drawing?monthly?labs?today? Potassium,?Albumin ??03/25/2025:?3.8,?3.4 ??03/09/2025:?5.3,?5.0 ??02/02/2025:?4.1,?3.2 ?? eNPCR ??03/25/2025:?0.87 ??03/16/2025:?0.81 ??02/14/2025:?0.5 PHYSICAL?EXAM Exam?Not?Performed. DIAGNOSIS Chief?Complaint:?N18.6?End?stage?renal?disease Patient?data?updated?03/30/2025?at?8:15?PM Signed?By:?Miguel,?Mely,?REFERENCE DATA EXPERT??on?03/30/2025?8:19:30 PM END OF DOCUMENT
[2025-03-31 10:19] VITALS: BP 114/82; PULSE 100; RESP 17; TEMP 36.6; O2SAT 99
--- OUTSIDE RECORDS SUMMARY | 2025-03-31 10:22 | XMS_ITS ---
Author Name [facility], Clinic Address [address] [place] [address] Phone [phone] Organization [facility] e, NA DOCUMENT DISCLAIMER Multiple document versions may exist, please be sure you review the latest version. The information in the [facility] Continuity of Care Document represents a summary of certain health and medical information. It may not contain the complete medical history for the patient and should be independently verified. The represented time in the document is Eastern Time. 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 kidney disease, or end stage renal disease I13.2 Active May Presence of automatic (impla ntable) cardiac defibrillator Z95.810 Active June 14, 2024 Hypertensive chronic kidney disease with stage 5 chronic kidney disease or end stage renal disease I12.0 Active May 25, 2024 Chronic systolic (congestive) heart failure I50.22 Active May 25, 2024 Pruritus, unspecified L29.9 Active 2022 Human immunodeficiency virus [HIV] disease B20 Active May 16, 2022 Allergy, unspecified, subsequent encounter T78.40XD Active May 16, 2022 Nausea R11.0 Active May 16, 2022 Cramp and spasm R25.2 Active May 16 022 Shortness of breath R06.02 Active April 292021 Hypotension of hemodialysis I95.3 Active May 16, 2022 Chest pain, unspecified R07.9 Active 2021 Pain, unspecified R52 Active May 16, 2022 Fever, unspecified R50.9 Active April Arthropathy, unspecified M12.9 Active Apr ust 2021 Heart failure, unspecified I50.9 Active A ugust 2021 Insomnia, unspecified G47.00 Active May 16, 2022 Gastro-esophageal reflux dis ease without esophagitis K21.9 Active May 16, 2022 Essential (primary) hypertension I10 Active May 16, 2022 Encounter for immunization Z23 Active A ugust 2021 Unspecified protein-calorie malnutrition E46 Active May 16, 2022 Encounter for screening for respiratory tuberculosis Z11.1 Active May 16, 2022 Depression, unspecified F32.A Active 2021 Other specified malignant ne oplasms of lymphoid, hematopoietic and related tissue C96.Z Active May 16, 2022 Malignant neoplasm of unspec ified site of unspecified male breast C50.929 Active May 16, 2022 Tobacco use Z72.0 Active May 16, 2022 Other psychoactive substance dependence, uncomplicated F19.20 Active May 16, 2022 Encounter for fitting and ad justment of extracorporeal dialysis catheter Z49.01 Active May 16, 2022 Secondary hyperparathyroidism of renal origin N25.81 Active May 16, 2022 Iron deficiency anemia, unspecified D50.9 Activ e May 16, 2022 Anemia in chronic kidney disease D63.1 Active May 16, 2022 Coagulation defect, unspecified D68.9 Active May 16, 2022 Malignant neoplasm of unspec ified testis, 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 Active May 16, 2022 Hypertensive chronic kidney disease with stage 1 through stage 4 chronic kidney disease, or unspecified chronic kidney disease I12.9 Active Aprus t 2021 End stage renal disease N18.6 Active 2021 ALLERGIES AND ADVERSE REACTIONS Substance Reaction Severity Status acetaminophen Unknown Active IODINATED CONTRAST MEDIA Unknown Act adriana lorazepam Unknown Active SOCIAL HISTORY Tobacco Use Status Tobacco Type Unknown if ever consumed tobacco - 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 No Information Available Characteristics of Home environment No Information Available Gender and Sex Information Gender Identity Sexual Orientation Male Decline to answer MEDICATIONS Prescribed Medications for Dialysis Treatments Medication Instructions Dosage Route Start Date End Date Stat us Diphenhydramine During Dialysis, PRN-may repeat x1 itching 25 mg Intravenous - push March 16, 2025 March 15, 2026 Active Heparin Sodium (Porcine) 1,000 Units/mL Systemic Bolus, 3X Week, Total treatment minutes 195 5000 units Intravenous - push November 10, 2024 November 09, 2025 Active Midodrine HCl (Proamatine) PRN Systolic <100 10 mg Oral February 23, 2025 February 22, 2026 Active Midodrine HCl (Proamatine) PRN-january repeat x1 Systolic < 100 10 mg Oral February 23, 2025 February 22, 2026 Active Mircera During Dialysis, Every 2 weeks 200 mcg Intravenous - push March 14, 2025 March 13, 2026 Active Ondansetron HCl (Zofran) PRN-january repeat x1 4 mg Intravenous - push November 10, 2024 November 09, 2025 Active Vitamin D (Calcitriol) Oral During Dialysis, 3X Week 1.0 mcg Oral March 14, 2025 March 13, 2026 Active Mircera During Dialysis, Every 2 weeks 200 mcg Intravenous - push February 28, 2025 February 27, 2026 Discontinued Vitamin D (Calcitriol) Oral During Dialysis, 3X Week 1.25 mcg Oral November 10, 2024 November 09, 2025 Discontinued Home Medications Medication Instructions Dosage Route Start Date End Date Stat albuterol sulfate 90 mcg/actuation Inhale using inhaler as directed 1 puff INHALATION July 19, 2023 Active bictegrav-emtri cit-tenofov ala 50-200-25 mg Take by mouth once a day 1 tablet ORAL May 30, 2022 Active diltiazem HCl 30 mg Take by mouth once a day 1 tablet ORAL January 31, 2025 Active Entresto 24-26 mg Take by mouth twice a day 1 tablet ORAL June 11, 2023 Active metoprolol succinate 100 mg by mouth twice a day 1 tablet ORAL June 10, 2024 Active Sucroferric Oxyhydroxide 500 mg Take By Mouth Three times a day With Meals 3 Tablet By Mouth October 07, 2024 October 04, 2025 Active torsemide 100 mg Take by mouth twice a day 1 tablet ORAL January 20, 2024 Active Eliquis 5 mg Take by mouth every twelve hours 1 tablet ORAL March 23, 2025 Discontinued VITAL SIGNS Post-Treatment Vital Signs Vital Sign Value Date / Time Blood Pressure-sitting 128/82 mmHg March 30, 2025 06:50 AM Blood Pressure-standing 102/75 mmHg March 30, 2025 06:50 AM Heart Rate 59 beats per minute March 30 06:50 AM Respiratory Rate 16 breaths per minute March 30, 2025 06:50 AM Temperature 97.8 deg. F March 30, 2025 06 :50 AM Weight Vital Sign Value Date / Time Pre-Dialysis 67.90 kg March 30, 2025 06 :50 AM Post-Dialysis 66.80 kg March 30, 2025 06 :50 AM Other Other Value Date / Time Height 173 cm June 20 12:00 AM Body Mass Index 20.35 kg/m2 March 23, 2025 03 :49 PM HEALTH CONCERNS Tuberculosis Testing TST Date Administered TST Date Read TST Result 06/14/2023 06/17/2023 Negative (<5) mm LAB RESULTS Hematology Result Type Result Value Relevant Referen ce Range Interpretation Date Transferrin Sat. (Calc) 37 % 20 - 55 % - November 19 TIBC (Calc) 183 mcg/dL 185 - 515 mcg/dL Low 2024 UIBC/TIBC 116 mcg/dL 155 - 355 mcg/dL Low November 19, 2024 Ferritin 1176 ng/mL 22 - 322 ng/mL High October 312024 Folate, Serum 7.6 ng/mL No Reference Ran ge Provided - November 19, 2024 Platelets 55 1000/mcL 130 - 400 1000/mcL Low 2024 WBC (No Diff) 2.15 1000/mcL 4.80 - 10.80 1000/mcL Low November 19, 2024 Neutrophils 68.8 % 40.0 - 75.0 % - October 312024 Platelets 56 1000/mcL 130 - 400 1000/mcL Low December 01, 2024 UIBC/TIBC 128 mcg/dL 155 - 355 mcg/dL Low November TIBC (Calc) 178 mcg/dL 185 - 515 mcg/dL Low November Transferrin Sat. (Calc) 28 % 20 - 55 % - December 01, 2024 Ferritin 1063 ng/mL 22 - 322 ng/mL High December 01, 2024 Folate, Serum 5.4 ng/mL No Reference Ran ge Provided - December 01, 2024 Neutrophils 67.9 % 40.0 - 75.0 % - December 01, 2024 WBC (No Diff) 1.97 1000/mcL 4.80 - 10.80 1000/mcL Low December 01, 2024 TIBC (Calc) 174 mcg/dL 185 - 515 mcg/dL Low December Transferrin Sat. (Calc) 33 % 20 - 55 % - December 29, 2024 UIBC/TIBC 117 mcg/dL 155 - 355 mcg/dL Low December WBC (No Diff) 2.35 1000/mcL 4.80 - 10.80 1000/mcL Low December 29, 2024 Neutrophils 72.5 % 40.0 - 75.0 % - December 29, 2024 Platelets 38 1000/mcL 130 - 400 1000/mcL Low December 29, 2024 Hemoglobin x 3 32.1 % 42.0 - 54.0 % Low December Ferritin 1474 ng/mL 22 - 322 ng/mL High January 05, 2025 Hemoglobin x 3 31.8 % 42.0 - 54.0 % Low December 282024 Hemoglobin x 3 32.1 % 42.0 - 54.0 % Low December 292024 Hemoglobin x 3 32.4 % 42.0 - 54.0 % Low December 302024 Transferrin Sat. (Calc) 39 % 20 - 55 % - February 02, 2025 UIBC/TIBC 98 mcg/dL 155 - 355 mcg/dL Low February 02, 2025 TIBC (Calc) 160 mcg/dL 185 - 515 mcg/dL Low February 02, 2025 Iron 62 mcg/dL 45 - 160 mcg/dL - February 02, 025 Eosinophil 4.3 % 0.0 - 7.0 % - February 02, 2025 Basophils 0.8 % 0.0 - 1.5 % - February 02, 2025 Lymphocytes 7.7 % 19.0 - 48.0 % Low February 02 25 Monocytes 4.5 % 3.0 - 10.0 % - February 02, 2025 TONIO 4.0 % 0.0 - 4.0 % - February 02, 2025 Neutrophils 78.8 % 40.0 - 75.0 % High February 02 25 Platelets 21 1000/mcL 130 - 400 1000/mcL Low January Hemoglobin x 3 30.9 % 42.0 - 54.0 % Low February 02, 2025 RDW 15.7 % 11.5 - 14.5 % High February 02 WBC (No Diff) 1.46 1000/mcL 4.80 - 10.80 1000/mcL Low February 02, 2025 MCHC 30.7 g/dL 30.0 - 36.0 g/dL - February 02, 2025 MCH 30.5 pg 27.0 - 31.0 pg - February 02 25 Hemoglobin x 3 30.6 % 42.0 - 54.0 % Low February 09, 2025 Hemoglobin x 3 30.6 % 42.0 - 54.0 % Low February 16, 2025 Hemoglobin x 3 28.2 % 42.0 - 54.0 % Low February 23, 2025 Ferritin 7104 ng/mL 22 - 322 ng/mL High March 09 Hemoglobin x 3 24.9 % 42.0 - 54.0 % Low February Platelets 22 1000/mcL 130 - 400 1000/mcL Low March 09, 2025 RDW 19.7 % 11.5 - 14.5 % High March 09 25 HGB 8.3 g/dL 14.0 - 18.0 g/dL Low March 09, 2025 RBC 2.74 mill/mcL 4.70 - 6.10 mill/mcL Low March 09, 2025 MCH 30.5 pg 27.0 - 31.0 pg - March 09 MCHC 30.4 g/dL 30.0 - 36.0 g/dL - March 09, 2025 HCT 27.4 % 42.0 - 52.0 % Low March 09 25 Eosinophil 0.4 % 0.0 - 7.0 % - March 09, 2025 Basophils 0.7 % 0.0 - 1.5 % - March 09, 2025 Lymphocytes 4.5 % 19.0 - 48.0 % Low March 09 Monocytes 4.9 % 3.0 - 10.0 % - March 09 5 TONIO 3.6 % 0.0 - 4.0 % - March 09, 2025 WBC (No Diff) 4.34 1000/mcL 4.80 - 10.80 1000/mcL Low March 09, 2025 Neutrophils 86.0 % 40.0 - 75.0 % High March 09 Transferrin Sat. (Calc) 81 % 20 - 55 % High March 09, 2025 TIBC (Calc) 169 mcg/dL 185 - 515 mcg/dL Low February UIBC/TIBC 32 mcg/dL 155 - 355 mcg/dL Low March 09, 2025 Iron 137 mcg/dL 45 - 160 mcg/dL - March 09, 2025 Hemoglobin x 3 21.6 % 42.0 - 54.0 % Low February HGB 7.2 g/dL 14.0 - 18.0 g/dL Low March 16, 2025 Hemoglobin x 3 20.7 % 42.0 - 54.0 % Low February HGB 6.9 g/dL 14.0 - 18.0 g/dL Critically low March 18, 2025 Neutrophils 89.2 % 40.0 - 75.0 % High March 25 HCT 26.6 % 42.0 - 52.0 % Low March 25 RBC 2.68 mill/mcL 4.70 - 6.10 mill/mcL Low March 25, 2025 WBC (No Diff) 3.36 1000/mcL 4.80 - 10.80 1000/mcL Low March 25, 2025 TONIO 1.2 % 0.0 - 4.0 % - March 25, 2025 Basophils 0.5 % 0.0 - 1.5 % - March 25, 2025 Eosinophil 2.0 % 0.0 - 7.0 % - March 25, 2025 Monocytes 2.8 % 3.0 - 10.0 % Low March 25 Lymphocytes 4.3 % 19.0 - 48.0 % Low March 25 MCHC 29.5 g/dL 30.0 - 36.0 g/dL Low March 25, 2025 MCH 29.3 pg 27.0 - 31.0 pg - March 25 Platelets 79 1000/mcL 130 - 400 1000/mcL Low March 25, 2025 Hemoglobin x 3 23.4 % 42.0 - 54.0 % Low February HGB 7.8 g/dL 14.0 - 18.0 g/dL Low March 25, 2025 RDW 22.1 % 11.5 - 14.5 % High March 25 Transferrin Sat. (Calc) 23 % 20 - 55 % - March 25, 2025 TIBC (Calc) 141 mcg/dL 185 - 515 mcg/dL Low February UIBC/TIBC 109 mcg/dL 155 - 355 mcg/dL Low March 25, 2025 Iron 32 mcg/dL 45 - 160 mcg/dL Low March 25, 2025 Ferritin 903 ng/mL 22 - 322 ng/mL High March 25 Folate, Serum 4.3 ng/mL No Reference Ran ge Provided - March 25, 2025 Metabolic/Renal Result Type Result Value Relevant Referen ce Range Interpretation Date Vitamin B12 486 pg/mL 211 - 911 pg/mL - November 19, 2024 Sodium 138 mEq/L 136 - 145 mEq/L - February 02 Creatinine, Serum 6.73 mg/dL 0.60 - 1.30 mg/dL High February 02, 2025 BUN/Creat Ratio 4.3 10.0 - 20.0 Low February 02, 2025 BUN 29 mg/dL 6 - 19 mg/dL High February 02, 2025 URR, Calc 69 % 65 - 80 % - February 02, 2025 Bicarbonate 26 mEq/L 22 - 29 mEq/L - February 02 Potassium 4.1 mEq/L 3.5 - 5.1 mEq/L - February 02 Chloride 98 mEq/L 96 - 108 mEq/L - February 02 BUN, Post 9 mg/dL 6 - 19 mg/dL - February 02, 2025 BUN 35 mg/dL 6 - 19 mg/dL High February 14, 2025 URR, Calc 71 % 65 - 80 % - February 14, 2025 BUN, Post 10 mg/dL 6 - 19 mg/dL - February 14, 2025 BUN 59 mg/dL 6 - 19 mg/dL High March 09 BUN/Creat Ratio 9.7 10.0 - 20.0 Low March 09, 2025 Creatinine, Serum 6.07 mg/dL 0.60 - 1.30 mg/dL High March 09, 2025 Potassium 5.3 mEq/L 3.5 - 5.1 mEq/L High March 09, 2025 Sodium 138 mEq/L 136 - 145 mEq/L - March 09, 2025 Bicarbonate < 10 mEq/L 22 - 29 mEq/L Low March 09 Chloride 93 mEq/L 96 - 108 mEq/L Low March 09 BUN 55 mg/dL 6 - 19 mg/dL High March 16 URR, Calc 67 % 65 - 80 % - March 16, 2025 BUN, Post 18 mg/dL 6 - 19 mg/dL - March 16 BUN/Creat Ratio 9.3 10.0 - 20.0 Low March 25, 2025 Creatinine, Serum 5.82 mg/dL 0.60 - 1.30 mg/dL High March 25, 2025 BUN 54 mg/dL 6 - 19 mg/dL High March 25 Bicarbonate 23 mEq/L 22 - 29 mEq/L - March 25, Chloride 100 mEq/L 96 - 108 mEq/L - March 25 Potassium 3.8 mEq/L 3.5 - 5.1 mEq/L - March 25, 2025 Sodium 140 mEq/L 136 - 145 mEq/L - March 25, 2025 Vitamin B12 766 pg/mL 211 - 911 pg/mL - March 25, 2025 URR, Calc 70 % 65 - 80 % - March 25, 2025 BUN, Post 16 mg/dL 6 - 19 mg/dL - March 25 HD Adequacy Result Type Result Value Relevant Referen ce Range Interpretation Date Krt/V 0.00 No Reference Ran ge Provided - November 12, 2024 Krt/V 0.00 No Reference Ran ge Provided - November 19, 2024 Krt/V 0.00 No Reference Ran ge Provided - November 24, 2024 Krt/V 0.00 No Reference Ran ge Provided - December 01, 2024 Krt/V 0.00 No Reference Ran ge Provided - December 08, 2024 Krt/V 0.00 No Reference Ran ge Provided - December 29, 2024 Krt/V 0.00 No Reference Ran ge Provided - February 02, 2025 wstdKt/V 2.2 No Reference Ran ge Provided - February 02, 2025 eKt/V ([place]) 1.09 No Reference Range Provided - February 02, 2025 spKt/V (Daugirdas II) 1.29 No Reference Range Provided - February 02, 2025 wstdKt/V, residual 0.0 No Reference Range Provided - February 02, 2025 spKt/V Gotch 1.28 No Reference Ran ge Provided - February 02, 2025 wstdKt/V without residual 2.2 No Reference Range Provided - February 02, 2025 eKt/V ([place]) 1.15 No Reference Range Provided - February 14, 2025 wstdKt/V, residual 0.0 No Reference Range Provided - February 14, 2025 spKt/V Gotch 1.34 No Reference Ran ge Provided - February 14, 2025 wstdKt/V 2.3 No Reference Ran ge Provided - February 14, 2025 Krt/V 0.00 No Reference Ran ge Provided - February 14, 2025 wstdKt/V without residual 2.3 No Reference Range Provided - February 14, 2025 spKt/V (Daugirdas II) 1.36 No Reference Range Provided - February 14, 2025 Krt/V 0.00 No Reference Ran ge Provided - March 16, 2025 spKt/V (Daugirdas II) 1.31 No Reference Range Provided - March 16, 2025 wstdKt/V, residual 0.0 No Reference Range Provided - March 16, 2025 wstdKt/V without residual 2.3 No Reference Range Provided - March 16, 2025 spKt/V Gotch 1.29 No Reference Ran ge Provided - March 16, 2025 eKt/V ([place]) 1.11 No Reference Range Provided - March 16, 2025 wstdKt/V 2.3 No Reference Ran ge Provided - March 16, 2025 wstdKt/V, residual 0.0 No Reference Range Provided - March 25, 2025 spKt/V Gotch 1.38 No Reference Ran ge Provided - March 25, 2025 wstdKt/V without residual 1.5 No Reference Range Provided - March 25, 2025 spKt/V (Daugirdas II) 1.39 No Reference Range Provided - March 25, 2025 Krt/V 0.00 No Reference Ran ge Provided - March 25, 2025 eKt/V ([place]) 1.17 No Reference Range Provided - March 25, 2025 wstdKt/V 1.5 No Reference Ran ge Provided - March 25, 2025 Bone/Mineral Result Type Result Value Relevant Referen ce Range Interpretation Date Magnesium 2.3 mg/dL 1.6 - 2.6 mg/dL - June 03, 2024 Magnesium 2.2 mg/dL 1.6 - 2.6 mg/dL - September 02, 2024 Magnesium 2.0 mg/dL 1.6 - 2.6 mg/dL - November 19, 2024 Vitamin D 25 Hydroxy 11.0 ng/mL 30.0 - 100.0 ng/mL Low November 19, 2024 PTH-Intact, Plasma 108 pg/mL 16 - 80 pg/mL High Feb ruary 2024 Magnesium 2.2 mg/dL 1.6 - 2.6 mg/dL - December 01, 2024 Vitamin D 25 Hydroxy 10.7 ng/mL 30.0 - 100.0 ng/mL Low December 01, 2024 PTH-Intact, Plasma 146 pg/mL 16 - 80 pg/mL High Nov Corrected Ca x P Product 76 0 - 54 High February 02, 2025 Phosphorus 7.9 mg/dL 2.6 - 4.5 mg/dL High February 02 025 Ca x P Product 71 0 - 54 High February 02 25 Calcium, Total 9.0 mg/dL 8.4 - 10.2 mg/dL - February 02, 2025 PTH-Intact, Plasma 118 pg/mL 16 - 80 pg/mL High Feb Magnesium 2.7 mg/dL 1.6 - 2.6 mg/dL High March 09, 2025 Phosphorus 8.5 mg/dL 2.6 - 4.5 mg/dL High March 09, 2025 Calcium, Total 9.8 mg/dL 8.4 - 10.2 mg/dL - March 09, 2025 Alkaline Phosphatase 77 U/L 40 - 129 U/L - 2024 Ca x P Product 83 0 - 54 High March 09 025 Corrected Ca x P Product 77 0 - 54 High March 09, 2025 Alkaline Phosphatase 144 U/L 40 - 129 U/L High [facility] 2024 Ca x P Product 35 0 - 54 - March 25 025 Phosphorus 4.0 mg/dL 2.6 - 4.5 mg/dL - March 25, 2025 Calcium, Total 8.8 mg/dL 8.4 - 10.2 mg/dL - March 25, 2025 Magnesium 2.2 mg/dL 1.6 - 2.6 mg/dL - March 25, 2025 Corrected Ca x P Product 37 0 - 54 - March 25, 2025 Vitamin D 25 Hydroxy 16.7 ng/mL 30.0 - 100.0 ng/mL Low March 25, 2025 PTH-Intact, Plasma 109 pg/mL 16 - 80 pg/mL High Feb Liver/Nutrition Result Type Result Value Relevant Reference Range Interpre tation Date Glucose 84 mg/dL 70 - 100 mg/dL - February 02 A/G Ratio 0.7 1.0 - 2.0 Low February 02, 2025 Globulin (Calc) 4.9 g/dL 2.0 - 4.0 g/dL High January Total Protein 8.1 g/dL 6.0 - 8.5 g/dL - February 02, 2025 Albumin (BCG) 3.2 g/dL 3.5 - 5.2 g/dL Low February 02, 2025 eNPCR 0.50 No Reference Range Provided - February 02, 2025 eNPCR 0.50 No Reference Range Provided - February 14, 2025 Glucose 36 mg/dL 70 - 100 mg/dL Critically low February 272024 A/G Ratio 1.4 1.0 - 2.0 - March 09, 2025 Albumin (BCG) 5.0 g/dL 3.5 - 5.2 g/dL - February Total Protein 8.5 g/dL 6.0 - 8.5 g/dL - February Globulin (Calc) 3.5 g/dL 2.0 - 4.0 g/dL - March 09, 2025 eNPCR 0.81 No Reference Range Provided - March 16, 2025 Albumin (BCG) 3.4 g/dL 3.5 - 5.2 g/dL Low February Total Protein 6.9 g/dL 6.0 - 8.5 g/dL - February A/G Ratio 1.0 1.0 - 2.0 - March 25, 2025 Globulin (Calc) 3.5 g/dL 2.0 - 4.0 g/dL - March 25, 2025 eNPCR 0.87 No Reference Range Provided - March 25, 2025 Immunochemistry Result Type Result Value Relevant Referen ce Range Interpretation Date HCV s/co ratio 0.11 0.00 - 0.79 - June 03, 2024 HCV s/co ratio 0.11 0.00 - 0.79 - November 19, 2024 HCV s/co ratio 0.19 0.00 - 0.79 - December 01, 2024 Trace Elements Result Type Result Value Relevant Reference Range Interpre tation Date Aluminum 7 mcg/L 0 - 10 mcg/L - May Aluminum 8 mcg/L 0 - 10 mcg/L - November 19, 2024 Aluminum < 5 mcg/L 0 - 10 mcg/L - December 01 Aluminum < 5 mcg/L 0 - 10 mcg/L - March 25 Infectious Diseases Result Type Result Value Relevant Referen ce Range Interpretation Date Hep B core Ab Total (anti-HBc) Negative No Reference Range Provided - November 19, 2024 HCV Ab (anti-HCV) Nonreactive No Reference R jair Provided - December 01, 2024 Hep B Surface Ab (anti-HBs) 10 mIU/mL No Reference Range Provided - December 01, 2024 Hep B Surface Ag (HBsAg) Negative No Reference Range Provided - March 09, 2025 DIALYSIS PRESCRIPTION Conventional Hemodialysis Data Element Value Order Date/Time March 16, 2025 Frequency 3X Week Treatment Days MonWedFri Dialyzer [id number] Optiflux Treatment Time (Total Minutes) 195 min Blood Flow Rate (mL/min) 450 mL/min Dialysate Flow Rate Autoflow 2.0 Estimated Dry Weight 60.9 kg Dialysate Concentrate 2.0 K, 2.0 Ca, 1.0 Mg, 100 Dextrose (G2201) Sodium (mEq/L) 137 mEq/L Bicarb Machine Setting (mEq/L) 37 mEq/L Dialysis Access Hemodialysis-AV Fist javid-Standard, Left Forearm, Other/Unknown Arterial Needle Size 15g1 Venous Needle Size 15g1 IMMUNIZATIONS Vaccine Date Dose Route Status Flu Vaccine - Flublok Trivalent July 15, 2024 0.5 mL Intramuscular Completed Flu Vaccine - Flublok Quadrivalent July 08, 2023 0.5 mL Intramuscular Completed PREVNAR 20 December 19, 2022 0.5 mL Intramuscular Complet ed TRANSPLANT WAITLIST STATUS No Information on Transplant Waitlist Status ADVANCE DIRECTIVES Directive Description Ordered By Effective Date Resuscitation status Full Code Fany Harden Oct DIALYSIS TREATMENTS Conventional Hemodialysis Date Pre-Treatment Vitals Post-Treatment Ida ls Duration (hr) BFR (mL/min) Dialysate Dialyzer Dialysis Access Meds Admin March 25, 2025 Weight 62.40 kg Weight 60.60 kg 03:08:00 460 2.0 K, 2.0 Ca, 1.0 Mg, 100 Dextrose (G2201) 180nre Optifl ux Blood Pressure-sitting 98/72 mmHg Blood Pressure-sit ting 109/79 mmHg Blood Pressure-standing 110/78 mmHg Blood Pressure-st anding 114/61 mmHg Heart Rate 110 beats per minute Heart Rate 108 beats per minute Respiratory Rate 18 breaths per minute Respiratory Rate 26 breaths per minute Temperature 99.0 deg. F Temperature 98.9 deg. F March 28, 2025 Weight 64.90 kg Weight 63.40 kg 02:14:00 470 2.0 K, 2.0 Ca, 1.0 Mg, 100 Dextrose (G2201) 180nre Optiflux Hemodialysis-AV Fistula-Standard, Left Forearm, Other/Unknown Diphenhydramine; 25mg,Intravenous - push Heparin Sodium (Porcine) 1,000 Units/mL Systemic; 5000units,Intravenous - push Midodrine HCl (Proamatine); 10mg,Oral Mircera; 200mcg,Intravenous - push Vitamin D (Calcitriol) Oral; 1.0mcg,Oral Blood Pressure-sitting 108/83 mmHg Blood Pressure-sit ting 111/80 mmHg Heart Rate 73 beats per minute Blood Pressure-standi ng 108/85 mmHg Respiratory Rate 16 breaths per minute Heart Rate 72 beats per minute Temperature 98.1 deg. F Respiratory Rate 16 breaths per minute - - Temperature 98.0 deg. F March 30, 2025 Weight 67.90 kg Weight 66.80 kg 02:27:00 460 2.0 K, 2.0 Ca, 1.0 Mg, 100 Dextrose (G2201) 180nre Optiflux Hemodialysis-AV Fistula-Standard, Left Forearm, Other/Unknown Heparin Sodium (Porcine) 1,000 Units/mL Systemic; 5000units,Intravenous - push Tuberculin Purified Protein Derivative (Tubersol); 0.1mL,Intradermal Vitamin D (Calcitriol) Oral; 1.0mcg,Oral Blood Pressure-sitting 112/89 mmHg Blood Pressure-sit ting 128/82 mmHg Heart Rate 113 beats per minute Blood Pressure-standing 102/75 mmHg Respiratory Rate 18 breaths per minute Heart Rate 59 beats per minute Temperature 98.8 deg. F Respiratory Rate 16 breaths per minute - - Temperature 97.8 deg. F
--- OUTSIDE RECORDS SUMMARY | 2025-03-31 10:22 | XMS_ITS | Clinical Summary ---
Author Organization [employer] Address [address] [facility] Attn: Epic Prelude ADT KRYSTIN HAN [address] Care Team Providers Care Geospatial Information Scientist Name Role Phone Unavailable Primary Care Provider Unavailabl e Allergies Active Allergy Reactions Criticality Noted Date Comments Acetaminophen Rash Low 03/11/2019 Aspirin Rash,Swelling Medium 09/29/2008 Iodinated Contrast Media Unknown 03/11/2019 Medications darunavir-cobic istat (Prezcobix) 800-150 mg-mg Tablet tablet Take by mouth daily . 03/04/2019 Active dapsone 25 mg tablet Take 2 Tablets (50 mg) by mouth daily. 30 Tablet 0 03/15/2019 Active albuterol HFA 90 mcg inhaler Take 2 Puffs by inhalation. 03/16/2019 Active Active Problems Problem Noted Date Diagnosed Date Ehrlichiosis chafeensis 03/14/2019 Skin nodule 03/13/2019 Pancytopenia 03/13/2019 Abdominal mass 03/13/2019 ESRD on hemodialysis 03/12/2019 Acute diarrhea 03/12/2019 HIV (human immunodeficiency virus infection) Hyponatremia 03/12/2019 Thrombocytopenia 03/12/2019 Fever 03/12/2019 Resolved Problems Problem Noted Date Diagnosed Date Resolved Date SIRS (systemic inflammatory response syndrome) 03/12/2019 03/12/2019 Family History Medical History Relation Name Comments Colon Cancer Neg Hx Social History Tobacco Use Types Packs/Day Years Used Date Smoking Tobacco: Former Smokeless Tobacco: Never Alcohol Use Standard Drinks/Week Comments Never 0 (1 standard drink = 0.6 oz pur e alcohol) Sex and Gender Information Value Date Recorded Sex Assigned at Not on file 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 Gender Identity Not on file Sexual Orientation Not on file Last Filed Vital Signs Vital Sign Reading Time Taken Comments Blood Pressure 128/73 03/22/2019 8:23 AM CDT Pulse 83 03/22/2019 8:23 AM CDT Temperature 37.3 C (99.2 F) 03/22/2019 6:48 AM CDT Respiratory Rate 18 03/22/2019 8:23 AM CDT Oxygen Saturation - - Inhaled Oxygen Concentration - - Weight 72.6 kg (160 lb) 03/16/2019 1:00 PM CDT Height 175.3 cm (5' 9 ) 03/16/2019 1:00 PM CDT Body Mass Index 23.63 03/16/2019 1:00 PM CDT Plan of Treatment Health Maintenance Due Date Last Done Comments DTAP/TDAP/TD VACCINES (1 - Tdap) 2003 HEPATITIS B VACCINES (2 of 5 - Risk Dialysis 4-dose series) 11/10/2008 10/13/2008 INFLUENZA VACCINE (#1) 2025 09/06/2014 HPV VACCINES Aged Out No longer eligi ble based on patient's age to complete this topic Insurance # [address] [place] [address] MEDICARE PART A AND B [place] Advance Directives For more information, please contact: [phone] Documents on File Type Date Recorded Patient Processor Grain Expl anation Advance Directive Living Will 03/15/2019 5:03 AM Advance Directive Living Will Advance Directive POA 03/15/2019 5:02 AM A dvance Directive POA
--- OUTSIDE RECORDS SUMMARY | 2025-03-31 10:22 | XMS_ITS ---
Author Organization [facility] Address [address] [place] [address] Care Team Providers Care Drug Department Worker Name Role Phone Director Of Provider RelationsJustin ledezma Jaden RESENDIZ Unavailable [phone] Riley Ayala DO Unavailable [phone] Riley Ayala DO Primary Care Provider Dialysis Access Sites Type Status Location Placement Date Removal Da te Hemodialysis Catheter Inactive 05/10/2016 Procedures Procedure Name Priority Date/Time Associated Diagnosis Comments HIV-1 GENOTYPIC DRUG RESISTANCE SEQUENCING Routine 05/04/2016 5:36 AM CDT CHRONIC HEPATITIS SCREEN Routine 05/03/2016 1:28 PM CDT from Last 3 Months or Most Recently Relevant to Health Maintenance Allergies Active Allergy Reactions Criticality Noted Date Comments Acetaminophen Swelling 02/08/2016 Medications citalopram (CELEXA) 10 MG tablet Take 10 mg by mouth daily. 6 Active ferrous sulfate 325 (65 FE) MG tablet Take 325 mg by mouth daily with breakfast. Active codeine 30 MG tabletIndicatio ns:pain Take 30 mg by mouth 2 (two) times a day as needed for pain. Active albuterol (PROVENTIL HFA;VENTOLIN HFA) 90 mcg/actuation inhaler Inhale 2 puffs into the lungs every 6 (six) hours as needed for shortness of breath (Use as needed). Active Active Problems Problem Noted Date Diagnosed Date ESRD (end stage renal disease) 05/11/2016 HIV (human immunodeficiency virus infection) 03/2016 CKD (chronic kidney disease) stage 5, GFR less than 15 ml/min 04/04/2016 Anemia 04/04/2016 Social History Tobacco Use Types Packs/Day Years Used Date Smoking Tobacco: Every Day Cigarettes 0.5 20 Smokeless Tobacco: Current Tobacco Cessation:Ready to Q uit: Yes; Counseling Given: Yes Alcohol Use Standard Drinks/Week Comments Yes 0 (1 standard drink = 0.6 oz pur e alcohol) Sex and Gender Information Value Date Recorded Sex Assigned at Not on file Legal Sex Male 12:51 PM CDT Gender Identity Not on file Sexual Orientation Not on file Last Filed Vital Signs Vital Sign Reading Time Taken Comments Blood Pressure 107/73 05/16/2016 4:37 AM CDT Pulse 92 05/16/2016 4:37 AM CDT Temperature 36.5 C (97.7 F) 05/16/2016 4:37 AM CDT Respiratory Rate 18 05/16/2016 4:37 AM CDT Oxygen Saturation 92% 05/16/2016 4:37 AM CDT Inhaled Oxygen Concentration - - Weight 48 kg (105 lb 13.1 oz) 05/15/2016 7:43 AM CDT Height 172.7 cm (5' 8 ) 05/09/2016 8:08 PM CDT Body Mass Index 16.09 05/09/2016 8:08 PM CDT Results * HIV-1 Genotyping Drug Resistance Sequenc (05/04/2016 5:36 AM CDT) [facility] HIV-1 Subtype B 6 1:33 PM CDT [facility] PI Resistance Interpretation None 6 1:33 PM CDT [facility] Atazanavir w/Ritonavir Susceptible 6 1:33 PM CDT [facility] Darunavir w/Ritonavir Susceptible 6 1:33 PM CDT [facility] Foramprenavir w/Ritonavir Susceptible 6 1:33 PM CDT [facility] Indinavir w/Ritonavir Susceptible 6 1:33 PM CDT [facility] Lopinavir w/Ritonavir Susceptible 6 1:33 PM CDT [facility] Nelfinavir Susceptible 6 1:33 PM CDT [facility] Saquinavir w/Ritonavir Susceptible 6 1:33 PM CDT [facility] Tipranavir w/Ritonavir Susceptible 6 1:33 PM CDT [facility] Nucleoside Reverse Trans Interpretation None 6 1:33 PM CDT [facility] Lamivudine Susceptible 6 1:33 PM CDT [facility] Abacavir Susceptible 6 1:33 PM CDT [facility] Zidovudine Susceptible 6 1:33 PM CDT [facility] Stavudine Susceptible 6 1:33 PM CDT [facility] Didanosine Susceptible 6 1:33 PM CDT [facility] Emtricitabine Susceptible 6 1:33 PM CDT [facility] Tenofovir Susceptible 6 1:33 PM CDT [facility] Non-Nucleoside Rev Trans Interpretation Y318F 6 1:33 PM CDT [facility] Efavirenz Potential Low-level resistance 6 1:33 PM CDT [facility] Etravirine Susceptible 6 1:33 PM CDT [facility] Nevirapine Intermediate resistance 6 1:33 PM CDT [facility] Rilpivirine Susceptible 6 1:33 PM CDT [facility] Integrase Interpretation [id number] 6 1:33 PM CDT [facility] Dolutegravir Susceptible 6 1:33 PM CDT [facility] Elvitegravir Low-level resistance 6 1:33 PM CDT [facility] Raltegravir Low-level resistance 6 1:33 PM CDT [facility] Comment:The HIV-1 Genotypic Drug Resistance assay utilizes RT-PCRamplification with primers in highly conserved viral genomic regionsto amplify three fragments covering HIV-1 subtypes B, A, AE, AG, C,D, and G.-These three regions include protease, a large portion ofreverse transcriptase where resistance mutations have been reported,and integrase. The fragments are purified and sequenced usingLocaloing primers from conserved regions of the fragments. Thetrimmed derived sequence is examined for resistance mutations usingthe curated [facility] HIV-1 Drug Resistance Database(Lasha Gonzáles et. al., 2003) and the REGA HIV-1 subtyping tool todetermine the subtype (Escobedo et. al. 2005 and et. al. 2009).-The [facility] HIV-1 Drug ResistanceDatabase detects mutations known to confer resistance toantiretroviral therapies.-Mutations are scored and these scores areconverted to provide qualitative results estimating susceptibilityto medications.-These medications include nucleosidereverse-transcriptase inhibitors, umc-desdlseksjtqnkoqn-qnuhwyqfjgvdu inhibitors, protease inhibitors and integraseinhibitors.-The actual quantitative score can be provided tophysicians at their request.-The minimum sequences that are requiredto generate a valid result are codons 10-93 for protease inhibitors(PI), codons 40-219 for nucleoside reverse transcriptase inhibitors(NRTI), codons 90-348 for non-nucleoside reverse transcriptaseinhibitors (NNRTI), and codons 51-263 for integrase inhibitors.- This test was developed and its performance characteristicsdetermined by [employer]. It has not been cleared orapproved by the U.S. Food and Drug Administration.Results should be used in conjunction with clinical findings, andshould not form the sole basis for a diagnosis or treatmentdecision.Testing Performed At:[facility] [place] [id number] Blood specimen (specimen) 05/04/2016 5:36 AM CDT 05/04/2016 5:48 AM CDT us Monroe White MD LAB BLOOD ORDERABLES Final Resul t [facility] [address] [place] [address], * Hepatitis Screen (05/03/2016 1:28 PM CDT) Hepatitis B Surface Ag Negative Negative 05/03/2016 3:12 PM CDT [facility] Hep B Surface Ab Non-reactive Non-reactive 05/03/2016 3:12 PM CDT [facility] Hepatitis C Virus Ab Non-reactive Non-reactive 05/03/2016 3:12 PM CDT [facility] Hep A IgM Non-reactive Non-reactive 05/03/2016 3:12 PM CDT [facility] Hep B Core Total Negative Negative 05/03/2016 3:12 PM CDT [facility] Serum 05/03/2016 1:28 PM CDT 05/03/2016 1:47 PM CDT Narrative [facility] - 05/03/2016 3:12 PM CDT These results were obtained using the [employer] Centaur XP. These assays are FDA approved for clinical diagnostic use. These assays should not be used for the screening of sera for the evaluation of potential cell, tissue, and blood donors. us Monroe White MD LAB BLOOD ORDERABLES Final Resul t [facility] [address] [place] [address], from Last 3 Months or Most Recently Relevant to Health Maintenance
--- OUTSIDE RECORDS SUMMARY | 2025-03-31 10:22 | XMS_ITS | Clinical Summary ---
Author Organization [facility] Address [address] [place] [address] Phone Care Team Providers Care Senior Director Name Role Phone Unavailable Primary Care Provider Unavailabl e Allergies Active Allergy Reactions Criticality Noted Date Comments Acetaminophen Rash Low 03/11/2019 Aspirin Rash,Swelling Medium 09/29/2008 Iodinated Contrast Media Unknown 03/11/2019 Medications dapsone 25 mg tablet Take 2 Tablets (50 mg) by mouth daily. 30 Tablet 03/15/2019 Active PREZCOBIX 800-150 mg-mg Tablet Take by mouth daily . 03/04/2019 Active albuterol HFA 90 mcg inhaler Take 2 Puffs by inhalation. Active Active Problems Problem Noted Date Diagnosed Date Ehrlichiosis chafeensis 03/14/2019 Skin nodule 03/13/2019 Pancytopenia 03/13/2019 Abdominal mass 03/13/2019 Acute diarrhea 03/12/2019 Hyponatremia 03/12/2019 HIV (human immunodeficiency virus infection) ESRD on hemodialysis 03/12/2019 Fever 03/12/2019 Thrombocytopenia 03/12/2019 Resolved Problems Problem Noted Date Diagnosed [...] at Not on file Legal Sex Male 6:40 PM CDT Gender Identity Not on file Sexual Orientation Not on file Last Filed Vital Signs Vital Sign Reading Time Taken Comments Blood Pressure 128/73 03/22/2019 8:23 AM CDT Pulse 83 03/22/2019 8:23 AM CDT Temperature 37.3 C (99.2 F) 03/22/2019 6:48 AM CDT Respiratory Rate 18 03/22/2019 8:23 AM CDT Oxygen Saturation 100% 03/22/2019 8:23 AM CDT Inhaled Oxygen Concentration - - Weight 72.6 [...] 4-dose series) 11/10/2008 10/13/2008 INFLUENZA VACCINE (#1) 2024 09/06/2014 HPV VACCINES Aged Out No longer eligi ble based on patient's age to complete this topic Insurance MEDICARE PART A [place] B [place] Advance Directives For more information, please contact: [phone] Documents on File Type Date Recorded Patient Surveillance Monitor Expl anation Advance Directive POA 03/15/2019 5:02 AM A dvance Directive POA Advance Directive Living Will 03/15/2019 5:02 AM Advance Directive Living Will * Full Code (Latest Code Status on File) Date Activated Date Inactivated Comments 03/22/2019 6:32 AM 03/22/2019 10:30 AM * Full Code Date Activated Date Inactivated Comments 03/12/2019 1:12 AM 03/14/2019 12:53 PM
--- OUTSIDE RECORDS SUMMARY | 2025-03-31 10:22 | XMS_ITS | Clinical Summary ---
Author Organization [facility] Address [address] [place] [address] Care Team Providers Care Administrator Social Welfare Name Role Phone Justin Locke Jaden RESENDIZ Unavailable [phone] Riley Ayala DO Unavailable [phone] Riley Ayala DO Primary Care Provider [phone] Allergies Active Allergy Reactions Criticality Noted Date [...] Mass Index 16.09 05/09/2016 8:08 PM CDT Plan of Treatment Health Maintenance Due Date Last Done Comments Annual Wellness Exam 1984 COVID-19 Vaccine (#1) 1989 Anxiety Screening 1992 Depression Screening 2002 TDAP/DTaP/TD Vaccines (1 - Tdap) 2003 Hepatitis B Vaccine (2 of 3 - Hep B Twinrix 3-dose series) 11/10/2008 10/13/2008 Pneumococcal Vaccine 0-50 years (2 of 2 - PCV) 09/03/2015 09/03/2014 Lipid Panel 2024 Influenza Series (#1) 2025 09/06/2014 Hepatitis C Screening Completed 05/03/2016 HIV Screening Completed 05/04/2016, 02/2016, 05/03/2016, Additional history exists Meningococcal B Vaccine Aged Out No l onger eligible based on patient's age to complete this topic Procedures Procedure Name Priority Date/Time Associated Diagnosis Comments HIV-1 GENOTYPIC DRUG RESISTANCE SEQUENCING Routine 05/04/2016 5:36 AM CDT CHRONIC HEPATITIS SCREEN Routine 05/03/2016 1:28 PM CDT from Last 3 Months or Most Recently Relevant to Health Maintenance Results * HIV-1 Genotyping Drug Resistance Sequenc (05/04/2016 5:36 AM CDT) HIV-1 Subtype B 6 1:33 PM CDT [...] Integrase Interpretation [id number] 6 1:33 PM CDT [facility] Dolutegravir Susceptible 6 1:33 PM CDT [facility] Elvitegravir Low-level resistance 6 1:33 PM CDT [facility] Raltegravir Low-level resistance 6 1:33 PM CDT [facility] Comment:The HIV-1 Genotypic Drug Resistance assay utilizes RT-PCRamplification with primers in highly conserved viral genomic regionsto amplify three fragments covering HIV-1 subtypes B, A, AE, AG, C,D, and G.-These three regions include protease, a large portion ofreverse transcriptase where resistance mutations have been reported,and integrase. The fragments are purified and sequenced usingsequencing primers from conserved regions of the fragments. Thetrimmed derived sequence is examined for resistance mutations usingthe curated [facility] HIV-1 Drug Resistance Database(Lasha Gonzáles et. al., 2003) and the REGA HIV-1 subtyping tool todetermine the subtype (Howell. et. al. 2005 and et. al. 2009).-The [facility] HIV-1 Drug ResistanceDatabase detects mutations known to confer resistance toantiretroviral therapies.-Mutations are scored and these scores areconverted to provide qualitative results estimating susceptibilityto medications.-These medications include nucleosidereverse-transcriptase inhibitors, ugk-jqexddaqotkqdfpbx-yymrthuzzfxao inhibitors, protease inhibitors and integraseinhibitors.-The actual quantitative score can be provided tophysicians at their request.-The minimum sequences that are requiredto generate a valid result are codons 10-93 for protease inhibitors(PI), codons 40-219 for nucleoside reverse transcriptase inhibitors(NRTI), codons 90-348 for non-nucleoside reverse transcriptaseinhibitors (NNRTI), and codons 51-263 for integrase inhibitors.- This test was developed and its performance characteristicsdetermined by [facility] [employer]. It has not been cleared orapproved by the U.S. Food and Drug Administration.Results should be used in conjunction with clinical findings, andshould not form the sole basis for a diagnosis or treatmentdecision.Testing Performed At:[email or web address] [place], [place] [id number] Blood specimen (specimen) 05/04/2016 5:36 AM CDT 05/04/2016 5:48 AM CDT Monroe White MD LAB BLOOD ORDERABLES Final Resul t [facility] [address] [place] [address], [place] [phone] * Hepatitis Screen (05/03/2016 1:28 PM CDT) Hepatitis B Surface Ag Negative Negative 05/03/2016 3:12 PM CDT [facility] Hep B Surface Ab Non-reactive Non-reactive 05/03/2016 3:12 PM CDT [facility] Hepatitis C Virus Ab Non-reactive Non-reactive 05/03/2016 3:12 PM CDT [facility] Hep A IgM Non-reactive Non-reactive 05/03/2016 3:12 PM CDT [facility] Hep B Core Total Negative Negative 05/03/2016 3:12 PM CDT [facility] Serum 05/03/2016 1:28 PM CDT 05/03/2016 1:47 PM CDT Narrative [facility] - 05/03/2016 3:12 PM CDT These results were obtained using the [employer] Cent[employer] XP. These assays are FDA approved for clinical diagnostic use. These assays should not be used for the screening of sera for the evaluation of potential cell, tissue, and blood donors. Monroe White MD LAB BLOOD ORDERABLES Final Resul t [facility] [address] [place] [address], [place] [phone] from Last 3 Months or Most Recently Relevant to Health Maintenance Insurance [place] MED[place] REFERRAL REQ MEDICARE PART A & B Advance Directives * Full Code (Latest Code Status on File) Date Activated Date Inactivated Comments 05/03/2016 4:25 AM 05/17/2016 12:57 AM Care Teams Administrator Social Welfare Relationship Specialty Start Date End Date Riley Ayala DO [address] [place] [id number] PCP - Medicaid Emergency Medicine 01/24/16 Riley Ayala DO [address] [place] [address] PCP - General Family Practice 02/06/16 Justin Locke APN [address] [place] [address] [address] [place] [address] Nurse Practitioner Family 01/24/16
--- NOTE | 2025-03-31 10:27 | CT_ITS ---
WS: [id number] CT CERVICAL TRAUMA TECHNIQUE: Noncontrast CT of the cervical spine with coronal and sagittal reformatted images. CLINICAL INFORMATION: fall COMPARISON: 2023 DLP: 1386.[address] scans at [facility] use at least one of these dose optimization techniques: automated exposure control; mA and/or kV adjustment per patient size (includes targeted exams where dose is matched to clinical indication); or iterative reconstruction. FINDINGS: Reversal of the normal cervical lordosis. Slight anterolisthesis C2 on C3. Mild spondylitic changes. Normal craniocervical junction. Normal C1-C2 articulation. Dens is normal in appearance. Normal occipital condyles. No high-grade spinal canal narrowing. Normal C1 ring. No evidence of acute fracture or dislocation. Normal prevertebral soft tissues. CT/CT cervical spin wo con* [id number] IMPRESSION: No evidence of acute fracture or dislocation.
--- NOTE | 2025-03-31 10:27 | CT_ITS ---
WS: [id number] CT HEAD TECHNIQUE: Noncontrast CT of the head obtained from the skullbase to the vertex. CLINICAL INFORMATION: fall COMPARISON: 2023 DLP: 1386.[address] scans at [facility] use at least one of these dose optimization techniques: automated exposure control; mA and/or kV adjustment per patient size (includes targeted exams where dose is matched to clinical indication); or iterative reconstruction. FINDINGS: No evidence of intracranial hemorrhage or mass effect. Ventricular system and basal cisterns are patent. No extra-axial fluid collections. No evidence of mass or mass effect. Normal li-white differentiation. Slight mucosal thickening RIGHT mastoid tip. CT/CT head wo con* [id number] IMPRESSION: 1. No evidence of intracranial hemorrhage or mass effect. 2. No acute intracranial findings.
--- NOTE | 2025-03-31 10:28 | W.ED.HEATRA ---
HPI - Head Injury General: Chief complaint: Head Injury Stated complaint: LOC - head injury Time Seen by Provider: 03/31/25 10:18 History of Present Illness: This patient is a 39 year old presenting after a fall this morning. He tripped while walking up stairs and landed hitting his head on the right side. No LOC. He is on blood thinners - lovenox BID but last dose was yesterday morning. He has extensive medical history of HIV/AIDS, PCP pneumonia, testicular cancer, a fib, CHF, DVT, pancytopenia. He is on dialysis. He says that his legs have been really weak since he was in the hospital for almost two weeks last month. He is in physical therapy and denies any new weakness in his legs. He is chronically on 3 liters [place] oxygen. EMS did not give any pain medications due to borderline low BPs during transport but normal mental status. Patient is certain that he didn't pass out. He has not eaten anything since last night. Related Data Previous Rx's ?Medication ?Instructions ?Recorded albuterol sulfate 2.5 mg/3 mL 2.5 mg (3 mL) inhalation QID PRN 02/17/25 (0.083 %) solution for nebulization wheezing #90 mL bictegravir 50 mg-emtricitabine 1 tab PO DAILY 30 days #30 tabs 02/27/25 200 mg-tenofovir alafenam 25 mg tablet (Biktarvy) colchicine 0.6 mg tablet 0.3 mg (1/2 x 0.6 mg) PO TuTh 30 03/08/25 days #5 tabs midodrine 5 mg tablet 10 mg (2 x 5 mg) PO TID 30 days 03/08/25 #180 tabs PORTABLE OXYGEN #1 ea 03/09/25 amiodarone 200 mg tablet (Pacerone) 200 mg PO DAILY #90 tabs 03/17/25 compression hose #1 ea 03/22/25 enoxaparin 30 mg/0.3 mL 30 mg (0.3 mL) SUBCUT Q12H #9 mL 03/23/25 subcutaneous syringe azithromycin 250 mg tablet 1,500 mg (6 x 250 mg) PO WEEKLY 4 03/29/25 weeks #36 tabs ciprofloxacin HCl 250 mg tablet 250 mg PO DAILY 5 days #5 tabs 03/29/25 (Cipro) fluconazole 100 mg tablet 100 mg PO DAILY #30 tabs 03/29/25 sulfamethoxazole 400 1 tab PO DAILY chronic 03/29/25 mg-trimethoprim 80 mg tablet pneumocystis ppx 30 days #30 tabs (Bactrim) Allergies Allergy/AdvReac Type Severity Reaction Status Date / Time Iodinated Contrast Media Allergy Unknown Verified 03/29/25 11:45 lorazepam (From Ativan) Allergy ADR-Irritab Verified 03/29/25 11:45 le codeine AdvReac Intermediate ADR-Agitate Verified 03/29/25 11:45 d PFSH ED PFSH: Medical History Syphilis AIDS Moderate to severe mitral regurgitation Valvular heart disease Noncompliance Tricuspid regurgitation Atrial fibrillation Nonischemic cardiomyopathy Deep vein thrombosis of left lower extremity Cardiac arrest Hemoptysis Sleep apnea Hyperkalemia Anemia in chronic kidney disease ESRD (end stage renal disease) on dialysis AV fistula HIV carrier History of testicular cancer Treated with orchiectomy, chemotherapy, and retroperitoneal lymph node dissection Surgical History History of inferior vena caval filter placement History of abdominal surgery (05/2009) Retroperitoneal lymph node dissection History of orchiectomy, unilateral (09/2008) Right unilateral orchiectomy with right inguinal lymph node biopsy S/P hemodialysis catheter insertion (11/30/20) R IJ catheter exchange History of removal of Port-a-Cath Family History Mother Stroke Denies family history of Anesthesia complication Bleeding disorder Social History Smoking and tobacco/nicotine status: former use of tobacco/nicotine Quit status (tobacco/nicotine): has quit using Year quit tobacco: 6 + years Former quit date comment: Smoker for 20+ years Alcohol intake: never Substance/Drug Use: current Adopted: No Caregiver/support person: Yes Lives independently: Yes Housing: House Current occupational status: disabled Pets and animals: No Sexually active: Yes Do you think of yourself as: Straight/Heterosexual Current gender identity: Male Josefa/Nondenominational: Baptism Physical Exam Const: COMMON NORMALS: no acute distress, patient oriented x3, no limitations and alert GENERAL APPEARANCE: cooperative and comfortable OTHER: thin, left arm with dressings over a dialysis shunt HENMT: HEAD & SCALP: normal to inspection OTHER: small laceration 1 cm over the right eyebrow - 5 mm laceration at the right lateral orbital ridge Eye: GENERAL EYE: appearance normal, both eyes and all related structures Neck/C-Spine: COMMON NORMALS: supple, no meningeal signs and no JVD OTHER: reports pain at the base of his neck Chest: COMMONS NORMALS: normal inspection of the chest Resp: COMMON NORMALS: normal respiratory effort and No use of accessory muscles OTHER: mild crackles in the bases Cardio: COMMON NORMALS: no JVD, regular rate, regular rhythm and No murmurs present (Cardio) RATE: regular rate RHYTHM: regular rhythm OTHER: edema bilateral lower legs - 1+ right, 2+ left GI: COMMON NORMALS: Normal to inspection, nondistended, normoactive bowel sounds present, Soft to palpation and non-tender INSPECTION: Yes normal to inspection AUSCULTATION: Yes normoactive bowel sounds PALPATION: Yes Soft to palpation Back/Pelvis: COMMON NORMALS: thoracic and lumbar spine normal to inspection Extremity: COMMON NORMALS: normal to inspection NARRATIVE EXTREMITY EXAM: dialysis fistula left upper arm Neuro: COMMON NORMALS: patient oriented x3, moves all extremities, no focal motor deficits and no sensory deficits noted SENSORIUM/ORIENTATION: Yes alert MENINGEAL SIGNS: Yes no meningeal signs Psych: COMMON NORMALS: mental status grossly normal, cooperative and normal affect Skin: COMMON NORMALS: no rashes or lesions noted and turgor normal GENERAL SKIN EXAM: no rashes or lesions noted and turgor normal Procedures Laceration Laceration 1: Site: face Side (If applicable): right Size (cm): 1 Description: linear Depth: simple, single layer Local Anesthetic: lidocaine 1% Amount of anesthesia used (mL): 2 Pre-repair: wound explored and irrigated extensively Skin layer closed with: other (Ethilon) Size (cm): 6-0 Number of sutures: 3 Technique: simple, interrupted Laceration 2: Site: face Side (If applicable): right Size (cm): 0.5 Description: linear Depth: simple, single layer Local Anesthetic: lidocaine 1% Amount of anesthesia used (mL): 0.5 Pre-repair: wound explored and irrigated extensively Skin layer closed with: other Size (cm): 6-0 Number of sutures: 1 Technique: simple, interrupted Course Vital Signs: Vital signs: Vital Signs Temperature 97.9 F 03/31/25 10:19 Pulse Rate 97 03/31/25 11:59 Respiratory Rate 16 03/31/25 11:18 Blood Pressure 118/64 03/31/25 11:59 Pulse Oximetry 98 03/31/25 11:59 Oxygen Delivery Me thod Nasal Cannula 03/31/25 10:19 Oxygen Flow Rate 3 03/31/25 10:19 MDM - Head Injury Medcial Decision Making The presentation today is due to a fall with head injury - on blood thinners although compliance is questionable. Multiple other chronic issues which the patient reports are not an issue today. CT head and Ct spine pending. Lab Data Radiology Impressions Cervical Spine CT 03/31/25 10:27 IMPRESSION: No evidence of acute fracture or dislocation. Head CT 03/31/25 10:27 IMPRESSION: 1. No evidence of intracranial hemorrhage or mass effect. 2. No acute intracranial findings. All radiology interpretation(s) finalized by discharge Discharge Plan Discharge Patient Disposition: Home Clinical Impression: Fall, ESRD (end stage renal disease) on dialysis, Closed head injury, Anticoagulant long-term use, Laceration HIV (human immunodeficiency virus infection) Qualifiers: HIV symptom status: unspecified Qualified Code(s): Z21 - Asymptomatic human immunodeficiency virus [HIV] infection status Condition: Stable Prescriptions: No Action fluconazole 100 mg tablet 100 mg PO DAILY Qty: 30 0RF sulfamethoxazole-trimethoprim [Bactrim] 400-80 mg tablet 1 tab PO DAILY 30 Days Qty: 30 6RF azithromycin 250 mg tablet 1,500 mg PO WEEKLY 28 Days Qty: 36 0RF ciprofloxacin HCl [Cipro] 250 mg tablet 250 mg PO DAILY 5 Days Qty: 5 0RF amiodarone [Pacerone] 200 mg tablet 200 mg PO DAILY Qty: 90 3RF (DME) PORTABLE OXYGEN See Rx Instructions .Route .MEDSUPPLY Qty: 1 0RF Rx Instructions: 3 L via nasal cannula, portable oxygen. (DME) compression hose See Rx Instructions .Route .MEDSUPPLY Qty: 1 0RF Rx Instructions: 20-30 mmHg Biktarvy 50-200-25 mg tablet 1 tab PO DAILY 30 Days Qty: 30 6RF midodrine 5 mg Tablet 10 mg PO TID 30 Days Qty: 180 0RF colchicine 0.6 mg Tablet 0.3 mg PO TuTh 30 Days Qty: 5 0RF albuterol sulfate 2.5 mg /3 mL (0.083 %) solution for nebulization 2.5 mg inhalation QID PRN (Reason: wheezing) Qty: 90 0RF enoxaparin 30 mg/0.3 mL Syringe 30 mg SUBCUT Q12H Qty: 9 0RF Discharge Orders: Discharge ED (Routine); Ordered 03/31/25 Ordered By: Christina Franz Referrals: Rebecca Montiel MD [Primary Care Provider, Family Practice] Patient Instructions: Opioid Safety, Pain Management, Patient Portal & Nhan Instructions Print Language: Greek Coding Level of Care Code ED Waiter/Waitress Bar for Jignesh Emerson
[2025-03-31 11:18] VITALS: RESP 16; O2SAT 94
[2025-03-31] MEDS: oxyCODONE-APAP 5-325 mg Tablet 1 TAB PO (11:18)
[2025-03-31 11:59] VITALS: BP 118/64; PULSE 97; O2SAT 98
== END 2025-03-31 12:00 | disposition home or self-care (01) ==
PROVIDERS: Emergency Provider Emergency Medicine; PCP Family Medicine
DX: S09.8XXA Other specified injuries of head, initial encounter (principal); Z79.01 Long term (current) use of anticoagulants; Z21 Asymptomatic human immunodeficiency virus [HIV] infection status; N18.6 End stage renal disease; Z99.2 Dependence on renal dialysis; Z85.47 Personal history of malignant neoplasm of testis; S01.81XA Laceration without foreign body of other part of head, initial encounter; W01.0XXA Fall on same level from slipping, tripping and stumbling without subsequent striking against object, initial encounter
CPT/HCPCS: 12011; 70450; 72125; 99284; J9999

== ENCOUNTER 2025-09-10 15:19 | Observation (INO) | payer MEDICARE, SELFPAY ==
[2025-09-10] VITALS (8 sets, daily range): BP systolic 100–114; BP diastolic 58–89; PULSE 100–135; RESP 16–20; TEMP 36.6–36.9; O2SAT 96–100; BMI 21.2; BMI 19.3
--- NOTE | 2025-09-10 14:48 | XRR_ITS ---
PROCEDURE INFORMATION: Exam: XR Chest Exam date and time: 09/10/2025 3:02 PM Age: 40 years old Clinical indication: Shortness of breath TECHNIQUE: Imaging protocol: Radiologic exam of the chest. Views: 1 view. COMPARISON: CT chest con [id number] 03/21/2025 2:01 PM FINDINGS: Tubes, catheters and devices: Unchanged position of left ICD. Lungs: Unremarkable. No consolidation. Pleural spaces: Unremarkable. No pleural effusion. No pneumothorax. Heart/Mediastinum: Cardiomegaly. Vasculature: IVC filter. Bones/joints: Unremarkable. Other findings: No acute intrathoracic abnormality. XR/XR chest 1V portable [id number] IMPRESSION: 1. No acute intrathoracic abnormality. 2. Cardiomegaly.
--- NOTE | 2025-09-10 15:19 | ECG_ITS ---
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 Measurements Intervals Winter Rate: 133 P: 66 AZ: 156 QRS: -10 QRSD: 81 T: 87 QT: 305 QTc: 455 Interpretive Statements SINUS TACHYCARDIA NONSPECIFIC T-WAVE ABNORMALITY POSSIBLE ANTERIOR MYOCARDIAL INFARCTION , OF INDETERMINATE AGE [30 ms Q WAVE IN V3/V4, OR R < 0.2 mV IN V4] Compared to ECG 03/21/2025 16:57:11 NONSPECIFIC T-WAVE ABNORMALITY Electronically Signed On 09-10-2025 19:20:22 WINDOW AND DOOR INSTALLER by Gurpreet Wilson M.D. [email or web address]
--- OUTSIDE RECORDS SUMMARY | 2025-09-10 15:22 | XMS_ITS | Clinical Summary ---
Author Organization [facility] Address [address] [facility] Attn: Epic Prelude ADT KRYSTIN HAN [address] Care Team Providers Care Television Host Name Role Phone Unavailable Primary Care Provider [...] on file Legal Sex Male 9:56 PM LOOM DOFFER Gender Identity Not on file Sexual Orientation [...] INFLUENZA VACCINE (#1) 2025 09/06/2014 HPV VACCINES (No Doses Required) Completed Insurance # [address] [place] [address] MEDICARE PART A AND B [place]ICAID [place] Advance Directives For more information, please contact: [phone] Documents on File Type Date Recorded 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
--- OUTSIDE RECORDS SUMMARY | 2025-09-10 15:22 | XMS_ITS | Clinical Summary ---
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
--- OUTSIDE RECORDS SUMMARY | 2025-09-10 15:22 | XMS_ITS | Clinical Summary ---
Author Organization [facility] Address [address] [place] [address] Care Team Providers Care Fire Safety Manager Name Role Phone Justin Locke Jaden RESENDIZ Unavailable [phone] Riley Ayala DO Unavailable [phone] Riley Ayala DO Primary Care Provider [phone] Allergies Active Allergy Reactions Criticality Noted Date [...] Integrase Interpretation E157Q 6 1:33 PM CDT [facility] Dolutegravir Susceptible 6 1:33 PM CDT [facility] Elvitegravir Low-level resistance 6 1:33 PM CDT [facility] Raltegravir Low-level resistance 6 1:33 PM CDT [facility] Comment:The HIV-1 Genotypic Drug Resistance assay [...] is examined for resistance mutations usingthe curated [facility] HIV-1 Drug Resistance Database(Lasha Gonzáles et. al., 2003) and the REGA HIV-1 subtyping tool todetermine the subtype (Howell. et. al. 2005 and et. al. 2009).-The [facility] HIV-1 Drug ResistanceDatabase detects mutations known to confer resistance toantiretroviral therapies.-Mutations are scored and these scores areconverted to provide qualitative results estimating susceptibilityto medications.-These medications include nucleosidereverse-transcriptase inhibitors, llw-gpllgdaeylxhsgydi-cjovbubwqgxze inhibitors, protease inhibitors and integraseinhibitors.-The actual quantitative score can be provided tophysicians at their request.-The minimum sequences that are requiredto generate a valid result are codons 10-93 for protease inhibitors(PI), codons 40-219 for nucleoside reverse transcriptase inhibitors(NRTI), codons 90-348 for non-nucleoside reverse transcriptaseinhibitors (NNRTI), and codons 51-263 for integrase inhibitors.- This test was developed and its performance characteristicsdetermined by [employer]. It has not been cleared orapproved by the U.S. Food and Drug Administration.Results should be used in conjunction with clinical findings, andshould not form the sole basis for a diagnosis or treatmentdecision.Testing Performed At:[facility] [place], [place] [id number] Blood specimen (specimen) 05/04/2016 5:36 AM CDT 05/04/2016 5:48 AM CDT Monroe White MD LAB BLOOD ORDERABLES Final Resul t [facility] [address] [place] [address], [place] [phone] * Hepatitis Screen (05/03/2016 1:28 PM CDT) Hepatitis B Surface Ag Negative Negative 05/03/2016 3:12 PM CDT [facility] Hep B Surface Ab Non-reactive Non-reactive 05/03/2016 3:12 PM CDT [facility] Hepatitis C Virus Ab Non-reactive Non-reactive 05/03/2016 3:12 PM CDT [facility] Hep A IgM Non-reactive Non-reactive 05/03/2016 3:12 PM CDT [facility] Hep B Core Total Negative Negative 05/03/2016 3:12 PM CDT [facility] Serum 05/03/2016 1:28 PM CDT 05/03/2016 1:47 PM CDT Narrative [facility] - 05/03/2016 3:12 PM CDT These results were obtained using the Advia Centaur XP. These assays are FDA approved for clinical diagnostic use. These assays should not be used for the screening of sera for the evaluation of potential cell, tissue, and blood donors. Monroe White MD LAB BLOOD ORDERABLES Final Resul t [facility] [address] [place] [address], [place] [phone] from Last 3 Months or Most Recently Relevant to Health Maintenance Insurance [place] MEDICAID-PCP REFERRAL REQ MEDICARE PART A & B Advance Directives * Full Code (Latest Code Status on File) Date Activated Date Inactivated Comments 05/03/2016 4:25 AM 05/17/2016 12:57 AM Care Teams Fire Safety Manager Relationship Specialty Start Date End Date Riley Ayala DO [address] [place] [id number] PCP - Medicaid Emergency Medicine 01/24/16 Riley Ayala DO [address] [place] [id number] PCP - General Family Practice 02/06/16 Justin Locke APN [address] [place] [address] [address] [place] [address] Nurse Practitioner Family 01/24/16
--- OUTSIDE RECORDS SUMMARY | 2025-09-10 15:22 | XMS_ITS | Clinical Summary ---
Author Organization [facility] Address [address] [place] [address] Phone Care Team Providers Care Header Dock Name Role Phone Unavailable Primary Care Provider Unavailabl e Allergies Active Allergy Reactions Criticality Noted Date Comments Acetaminophen Anaphylaxis High 04/09/2018 Medications dapsone 100 MG tablet Take 100 mg by mouth Active darunavir-cobici stat (PREZCOBIX) 800-150 mg-mg tablet Take 1 tablet by mouth one (1) time a day Active dolutegravir (TIVICAY) 50 mg tabletIndication s:HIV infection Take 50 mg by mouth one (1) time a day Active apixaban (ELIQUIS) 2.5 mg tabletIndication s:deep venous thrombosis Take by mouth 2 (two) times a day Active citalopram (CELEXA) 20 MG tabletIndication s:anxiety with depression,gener alized anxiety disorder Take 20 mg by mouth one (1) time a day Active albuterol (PROVENTIL HFA) 90 mcg/actuation inhaler Inhale two puffs into the lungs as needed 6.7 g 09/29/2021 Active Active Problems Problem Noted Date Diagnosed Date Hyperkalemia 09/27/2021 Acute diastolic CHF (congestive heart failure) 1 Acute pulmonary edema 09/26/2021 Sinus tachycardia 09/26/2021 Elevated d-dimer 09/26/2021 Thrombocytopenia 09/26/2021 Pneumonia 09/26/2021 Acute respiratory distress 09/26/2021 Anemia 09/26/2021 Acute on chronic respiratory failure 09/26/2021 Elevated troponin 09/25/2021 Chest pain 09/25/2021 HTN (hypertension) 09/25/2021 Tachycardia 09/25/2021 HIV (human immunodeficiency virus infection) ESRD on hemodialysis RAD (reactive airway disease) CHF (congestive heart failure) Depression Family History Medical History Relation Name Comments Cancer Maternal Grandfather mesothreinaldo lioma Hypertension Mother Stroke Mother Relation Name Status Comments Maternal Grandfather Mother Social History Tobacco Use Types Packs/Day Years Used Date Smoking Tobacco: Former Cigarettes 2017 Smokeless Tobacco: Never Tobacco Cessation:Counseling Given: No Alcohol Use Standard Drinks/Week Comments No 0 (1 standard drink = 0.6 oz pur e alcohol) PHQ-2 Answer Date Recorded Patient Health Questionnaire-2 Score 0 09/25/2021 Sex and Gender Information Value Date Recorded Sex Assigned at Not on file Legal Sex Male 8:59 AM CDT Gender Identity Not on file Sexual Orientation Not on file Last Filed Vital Signs Vital Sign Reading Time Taken Comments Blood Pressure 127/84 09/29/2021 10:45 AM REVOLVING INVENTORY CLERK Pulse 97 09/29/2021 10:45 AM REVOLVING INVENTORY CLERK Temperature 36.3 C (97.3 F) 09/29/2021 10:45 AM REVOLVING INVENTORY CLERK Respiratory Rate 20 09/29/2021 10:4 5 AM REVOLVING INVENTORY CLERK Oxygen Saturation 96% 09/29/2021 10: 45 AM REVOLVING INVENTORY CLERK Inhaled Oxygen Concentration - - Weight 66.6 kg (146 lb 12.8 oz) 09/28/2021 5:00 AM REVOLVING INVENTORY CLERK Height 172.7 cm (5' 8 ) 09/25/2021 9:23 PM REVOLVING INVENTORY CLERK Body Mass Index 22.32 09/25/2021 9:23 PM REVOLVING INVENTORY CLERK Plan of Treatment Health Maintenance Due Date Last Done Comments Annual Depression Screening 1995 DTap/Tdap/Td Vaccines (1 - Tdap) 2003 Medicare Subsequent AWV G0439 07/30/2017 Flu Vaccine (#1) 05/30/2025 09/06/2014 Influenza Vaccine 05/30/2025 09/06/2014 Pneumococcal Vaccine High Risk Completed 09/03/2014 Hepatitis C Antibody Screen Completed 03/12/2019 [place] [id number] MEDICAID [place] Advance Directives For more information, please contact: [phone] (7AM - 5PM [facility], 7 days a week) * Full Code (Latest Code Status on File) Date Activated Date Inactivated Comments 09/25/2021 11:14 PM 09/29/2021 4:20 PM
--- OUTSIDE RECORDS SUMMARY | 2025-09-10 15:22 | XMS_ITS ---
Author Organization [facility] Address [address] [place] [address] Care Team Providers Care Multi Line Claims Adjuster Name Role Phone Industrial PsychologistJustin ledezma Jaden RESENDIZ Unavailable [phone] Riley Ayala DO Unavailable [phone] Riley Ayala DO Primary Care Provider [phone] Dialysis Access Sites Type Status Location Placement [...] Drug Resistance Sequenc (05/04/2016 5:36 AM CDT) [facility] HIV-1 Subtype B 6 1:33 PM CDT [...] integrase. The fragments are purified and sequenced using[employer] primers from conserved regions of the fragments. Thetrimmed derived sequence is examined for resistance mutations usingthe curated [facility] HIV-1 Drug Resistance Database(Lasha Gonzáles et. al., 2003) and the REGA HIV-1 subtyping tool todetermine the subtype (Escobedo et. al. 2005 and et. al. 2009).-The [facility] HIV-1 Drug ResistanceDatabase detects mutations known to confer resistance toantiretroviral therapies.-Mutations are scored and these scores areconverted to provide qualitative results estimating susceptibilityto medications.-These medications include nucleosidereverse-transcriptase inhibitors, mom-bmskpvjpvxtfrbtne-aaactgnsxgovb inhibitors, protease inhibitors and integraseinhibitors.-The actual quantitative score can be provided tophysicians at their request.-The minimum sequences that are requiredto generate a valid result are codons 10-93 for protease inhibitors(PI), codons 40-219 for nucleoside reverse transcriptase inhibitors(NRTI), codons 90-348 for non-nucleoside reverse transcriptaseinhibitors (NNRTI), and codons 51-263 for integrase inhibitors.- This test was developed and its performance characteristicsdetermined by [employer]. It has not been cleared orapproved by the U.S. Food and Drug Administration.Results should be used in conjunction with clinical findings, andshould not form the sole basis for a diagnosis or treatmentdecision.Testing Performed At:[facility] [place] [id number] Blood specimen (specimen) 05/04/2016 5:36 AM CDT 05/04/2016 5:48 AM CDT us Monroe White MD LAB BLOOD ORDERABLES Final Resul t [facility] [address] [place] [address], * Hepatitis Screen (05/03/2016 1:28 PM CDT) Hepatitis B Surface Ag Negative Negative 05/03/2016 3:[address] [facility] Hep B Surface Ab Non-reactive Non-reactive 05/03/2016 3:[address] [facility] Hepatitis C Virus Ab Non-reactive Non-reactive 05/03/2016 3:[address] [facility] Hep A IgM Non-reactive Non-reactive 05/03/2016 3:[address] [facility] Hep B Core Total Negative Negative 05/03/2016 3:[address] [facility] Serum 05/03/2016 1:28 PM CDT 05/03/2016 1:47 PM CDT Narrative [facility] - 05/03/2016 3:12 PM CDT These results were obtained using the [employer] Centaur XP. These assays are FDA approved for clinical diagnostic use. These assays should not be used for the screening of sera for the evaluation of potential cell, tissue, and blood donors. us Monroe White MD LAB BLOOD ORDERABLES Final Resul t [facility] [address] [place] [address], from Last 3 Months or Most Recently Relevant to Health Maintenance
--- NOTE | 2025-09-10 15:23 | W.ED.SOB ---
HPI - SOB/Dyspnea General: Chief Complaint: Shortness of Breath/Dyspnea Stated Complaint: sob; missed dialysis History of Present Illness: HPI Narrative: 40-year-old man with history of end-stage renal disease on dialysis, congestive heart failure, hypertension, HIV, valvular heart disease, atrial fibrillation, who presents emergency room with shortness of breath. He says he moved back here this week from [place]. He tried to get an appointment with dialysis and could not get it. He was supposed to dialyze Friday. He said he did dialyze Friday before he moved back down here. Related Data Previous Rx's ?Medication ?Instructions ?Recorded albuterol sulfate 2.5 mg/3 mL 2.5 mg (3 mL) inhalation QID PRN 02/17/25 (0.083 %) solution for nebulization wheezing #90 mL bictegravir 50 mg-emtricitabine 1 tab PO DAILY 30 days #30 tabs 02/27/25 200 mg-tenofovir alafenam 25 mg tablet (Biktarvy) PORTABLE OXYGEN #1 ea 03/09/25 amiodarone 200 mg tablet (Pacerone) 200 mg PO DAILY #90 tabs 03/17/25 compression hose #1 ea 03/22/25 enoxaparin 30 mg/0.3 mL 30 mg (0.3 mL) SUBCUT Q12H #9 mL 03/23/25 subcutaneous syringe ciprofloxacin HCl 250 mg tablet 250 mg PO DAILY 5 days #5 tabs 03/29/25 (Cipro) fluconazole 100 mg tablet 100 mg PO DAILY #30 tabs 03/29/25 sulfamethoxazole 400 1 tab PO DAILY chronic 03/29/25 mg-trimethoprim 80 mg tablet pneumocystis ppx 30 days #30 tabs (Bactrim) Allergies Allergy/AdvReac Type Severity Reaction Status Date / Time Iodinated Contrast Media Allergy Unknown Verified 03/29/25 11:45 lorazepam (From Ativan) Allergy ADR-Irritab Verified 03/29/25 11:45 le codeine AdvReac Intermediate ADR-Agitate Verified 03/29/25 11:45 d Review of Systems Narrative: Constitutional symptoms: Negative except as documented in HPI. Skin symptoms: Negative except as documented in HPI. Eye symptoms: Negative except as documented in HPI. ENMT symptoms: Negative except as documented in HPI. Respiratory symptoms: Negative except as documented in HPI. Cardiovascular symptoms: Negative except as documented in HPI. Gastrointestinal symptoms: Negative except as documented in HPI. Genitourinary symptoms: Negative except as documented in HPI. Musculoskeletal symptoms: Negative except as documented in HPI. Neurologic symptoms: Negative except as documented in HPI. Psychiatric symptoms: Negative except as documented in HPI. Endocrine symptoms: Negative except as documented in HPI. PFSH ED PFSH: Medical History (Updated 09/10/25 @ 16:21 by Federica Butler MD) Syphilis AIDS Moderate to severe mitral regurgitation Valvular heart disease Noncompliance Tricuspid regurgitation Atrial fibrillation Nonischemic cardiomyopathy Deep vein thrombosis of left lower extremity Cardiac arrest Hemoptysis Sleep apnea Hyperkalemia Anemia in chronic kidney disease ESRD (end stage renal disease) on dialysis AV fistula HIV carrier History of testicular cancer Treated with orchiectomy, chemotherapy, and retroperitoneal lymph node dissection Surgical History History of inferior vena caval filter placement History of abdominal surgery (05/2009) Retroperitoneal lymph node dissection History of orchiectomy, unilateral (09/2008) Right unilateral orchiectomy with right inguinal lymph node biopsy S/P hemodialysis catheter insertion (11/30/20) R IJ catheter exchange History of removal of Port-a-Cath Family History Mother Stroke Denies family history of Anesthesia complication Bleeding disorder Social History Smoking and tobacco/nicotine status: unknown if used tobacco/nicotine Quit status (tobacco/nicotine): has quit using Year quit tobacco: 6 + years Former quit date comment: Smoker for 20+ years Alcohol intake: never Substance/Drug Use: current Adopted: No Caregiver/support person: Yes Lives independently: Yes Housing: House Current occupational status: disabled Pets and animals: No Sexually active: Yes Do you think of yourself as: Straight/Heterosexual Current gender identity: Male Josefa/Buddhist: Restoration Physical Exam Narrative: EXAM NARRATIVE: General: Alert, no acute distress. Skin: Warm, dry. Head: Normocephalic, atraumatic. Neck: Supple, trachea midline. Eye: Extraocular movements are intact. Ears, nose, mouth and throat: mucosa moist. Cardiovascular: Regular, tachycardic, normal peripheral perfusion. Respiratory: Lungs are clear to auscultation, respirations are non-labored, breath sounds are equal, Symmetrical chest wall expansion. Left arm fistula Gastrointestinal: Soft, Nontender, Non distended Musculoskeletal: Normal ROM, no deformity. Neurological: Alert and oriented, No focal neurological deficit observed. Psychiatric: Cooperative, appropriate mood & affect. Course Vital Signs: Vital signs: Vital Signs Temperature 97.8 F 09/10/25 15:11 Pulse Rate 132 H 09/10/25 15:48 Respiratory Rate 20 H 09/10/25 15:33 Blood Pressure 108/89 09/10/25 15:48 Pulse Oximetry 100 09/10/25 15:48 Oxygen Delivery Me thod Room Air 09/10/25 15:48 MDM - SOB/Dyspnea Medical Decision Making Medical decision making Patient's reason for coming to the emergency room: Social determinants: Patient is disabled. Just moved back here. Does not have established care I reviewed the patient's medical record. 40-year-old man with history of end-stage renal disease on dialysis, congestive heart failure, hypertension, HIV, valvular heart disease, atrial fibrillation, I reviewed the patient's current home meds Patient was on Lovenox and amiodarone. Alternate historians: None Differential diagnosis: including but not limited to and based on the above HPI, review of systems and physical exam: Orders placed to evaluate differential diagnosis based on the above differential, HPI and physical exam EKG: Time 1549. Rate 135. Sinus tachycardia, No ST-T changes, no ectopy, normal UT & QRS intervals, This was reviewed and interpreted by myself the ER physician at 1554 Chest x-ray: Massive cardiomegaly but no infiltrates or edema. This was reviewed and interpreted by myself the emergency room physician. I also reviewed the radiology report. Lab Review: Laboratory results were reviewed and interpreted by myself the emergency room physician. No leukocytosis. Anemia with a hemoglobin of 8.5. BUN and creatinine are very elevated at 62 and 12.3. Potassium is mildly elevated at 5.6. Assessment of risk: Level of risk: High risk patient. HIV, end-stage renal disease on dialysis, some component of medical noncompliance Hospitalization considerations: Patient is being admitted. Reexamination: Patient remained stable. No increased work of breathing. No altered mental status. No focal motor deficits. He has remained tachycardic. Patient does tell me that he becomes tachycardic sometimes whenever he has not gotten dialysis. Consultation: I spoke with Dr. Rosado who agrees to admission. He recommends a CTA to evaluate for PE because the patient is tachycardic. And has a history of DVT. Consultation: I spoke with Dr. Regan who is on-call for nephrology who agrees to consultation and will do dialysis. Also recommends a stat echo. Assessment and plan: End-stage renal disease on dialysis Tachycardia ?P.o. oxycodone. Patient is requesting IV pain meds. ?I spoke with cardiology and they are fine with me ordering a stat echo which has been ordered. ?CTA with contrast being done. This needs to be done before dialysis -I discussed the patient with the hospitalist on-call who is admitting the patient. - Discussed findings and plan with patient. Answered any questions. - All laboratory values were reviewed and interpreted personally by myself, the ER physician - All imaging was reviewed and interpreted personally by myself, the ER physician. - Evaluation and treatment of this problem were appropriate in the emergency setting Lab Data 09/10/25 15:15 09/10/25 15:15 Labs/Radiology: Radiology Impressions Chest X-Ray 09/10/25 14:48 IMPRESSION: 1. No acute intrathoracic abnormality. 2. Cardiomegaly. Laboratory Results WBC 4.78 10^3/uL (3.29-11.43) 09/10/25 15:15 RBC 2.98 10^6/uL (3.85-5.65) L 09/10/25 15:15 Hgb 8.50 g/dL (11.27-16.99) L 09/10/25 15:15 Hct 26.0 % (37-53) L 09/10/25 15:15 MCV 87.2 fl (82-101) 09/10/25 15:15 MCH 28.5 pg (27-33) 09/10/25 15:15 MCHC 32.7 g/dL (30-55) 09/10/25 15:15 RDW 17.7 % (12.1-15.1) H 09/10/25 15:15 Plt Count 63 10^3/cmm (157-399) L 09/10/25 15:15 MPV 11.5 fL (7.4-10.4) H 09/10/25 15:15 Neut % (Auto) 56.8 % 09/10/25 15:15 Lymph % (Auto) 33.9 % 09/10/25 15:15 [place] % (Auto) 7.1 % 09/10/25 15:15 Eos % (Auto) 0.6 % 09/10/25 15:15 Baso % (Auto) 0.6 % 09/10/25 15:15 Neut # (Auto) 2.71 10^3/uL (1.8-7.7) 09/10/25 15:15 Lymph # (Auto) 1.6 10^3/uL (0.8-4.8) 09/10/25 15:15 [place] # (Auto) 0.3 10^3/uL (0.2-0.9) 09/10/25 15:15 Eos # (Auto) 0.0 10^3/uL (0.0-0.8) 09/10/25 15:15 Baso # (Auto) 0.0 10^3/uL (0.0-0.1) 09/10/25 15:15 Nucleated RBC % (auto) 0 % 09/10/25 15:15 Nucleated RBCs # 0.0 /100WBC 09/10/25 15:15 Sodium 135 mmol/L (136-145) L 09/10/25 15:15 Potassium 5.6 mmol/L (3.5-5.1) H 09/10/25 15:15 Chloride 90 mmol/L (98-107) L 09/10/25 15:15 Carbon Dioxide 27 mmol/L (22-29) 09/10/25 15:15 Anion Gap 23.6 (5-19) H 09/10/25 15:15 BUN 62 mg/dL (6-20) H 09/10/25 15:15 Creatinine 12.3 mg/dL (0.7-1.2) H* 09/10/25 15:15 GFR Calculation 5.5 mL/min (90-130) L 09/10/25 15:15 Glucose 83 mg/dL (65-115) 09/10/25 15:15 Calculated Osmolality 297 mOsm/kg (285-295) H 09/10/25 15:15 Lactic Acid 2.0 mmol/L (0.5-2.2) 09/10/25 15:15 Calcium 6.9 mg/dL (8.5-10.5) L 09/10/25 15:15 Phosphorus 8.4 mg/dL (2.5-4.5) H* 09/10/25 15:15 Magnesium 2.1 mg/dL (1.7-2.3) 09/10/25 15:15 Total Bilirubin 0.4 mg/dL (0.15-1.2) 09/10/25 15:15 AST 26 U/L (0-40) 09/10/25 15:15 ALT 13 U/L (0-41) 09/10/25 15:15 Alkaline Phosphatase 101 U/L (40-130) 09/10/25 15:15 Troponin T Baseline 237 ng/L (0-15) H* 09/10/25 15:15 Total Protein 6.5 g/dL (6.6-8.7) L 09/10/25 15:15 Albumin 2.6 g/dL (3.5-5.2) L 09/10/25 15:15 Globulin 3.9 g/dL (1.3-4.6) 09/10/25 15:15 All radiology interpretation(s) finalized by discharge Discharge Plan Discharge Patient Disposition: Placed in Observation Clinical Impression: End stage renal disease on dialysis, Missed dialysis, Sinus tachycardia Coding Level of Care Code ED [employer] 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
[2025-09-10 15:25] LABS: Hematocrit 26.0 % (37-53); Hemoglobin 8.50 g/dL (11.27-16.99); Mean Corpuscular HGB Conc 32.7 g/dL (30-55); Mean Corpuscular Hemoglobin 28.5 pg (27-33); Mean Corpuscular Volume 87.2 fl (82-101); Nucleated Red Blood Cells % 0 %; Platelet Count 63 10^3/cmm (157-399); Red Blood Count 2.98 10^6/uL (3.85-5.65); White Blood Count 4.78 10^3/uL (3.29-11.43)
[2025-09-10] MEDS: oxyCODONE 5 mg IR Tab/Cap 10 MG PO (15:33)
[2025-09-10 15:38] LABS: Lactic Sepsis W/Reflex 2.0 mmol/L (0.5-2.2)
--- NOTE | 2025-09-10 15:47 | ECG_ITS ---
[facility] Test Date: 2025-09-10 Pat Name: Vivek Harden Department: Room: Gender: Male Solderer Torch: : 1985 Requested By: Federica Stanley Order Number: [id number] Neva MD: Gurpreet Wilson M.D. Measurements Intervals [place] Rate: 135 P: 75 CA: 143 QRS: -12 QRSD: 83 T: 87 QT: 314 QTc: 471 Interpretive Statements SINUS TACHYCARDIA ANTERIOR MYOCARDIAL INFARCTION , PROBABLY RECENT [40+ ms Q WAVE AND/OR ST/T ABNORMALITY IN V3/V4] NONSPECIFIC T WAVE ABNORMALITY Compared to ECG 09/10/2025 15:19:13 No significant changes Electronically Signed On 09-10-2025 19:57:04 ADMITTING OFFICE ESCORT by Gurpreet Wilson M.D. [email or web address]
[2025-09-10 15:50] LABS: Alanine Aminotransferase 13 U/L (0-41); Albumin Level 2.6 g/dL (3.5-5.2); Alkaline Phosphatase 101 U/L (40-130); Anion Gap 23.6 (5-19); Aspartate Amino Transferase 26 U/L (0-40); Blood Urea Nitrogen 62 mg/dL (6-20); Calcium 6.9 mg/dL (8.5-10.5); Carbon Dioxide 27 mmol/L (22-29); Chloride 90 mmol/L (98-107); Globulin 3.9 g/dL (1.3-4.6); Glucose 83 mg/dL (65-115); Magnesium 2.1 mg/dL (1.7-2.3); Osmolality Calculated 297 mOsm/kg (285-295); Potassium 5.6 mmol/L (3.5-5.1); Sodium 135 mmol/L (136-145); Total Protein 6.5 g/dL (6.6-8.7)
[2025-09-10 15:55] LABS: Troponin(5th) Baseline 237 ng/L (0-15)
--- NOTE | 2025-09-10 16:19 | CTR_ITS ---
PROCEDURE INFORMATION: Exam: CTA Chest With Contrast Exam date and time: 09/10/2025 4:56 PM Age: 40 years old Clinical indication: Other: Tachycardia TECHNIQUE: Imaging protocol: Computed tomographic angiography of the chest with contrast. Exam focused on the arteries. 3D rendering (Not supervised by radiologist): MIP and/or 3D reconstructed images were created by the technologist. Radiation optimization: All CT scans at this facility use at least one of these dose optimization techniques: automated exposure control; mA and/or kV adjustment per patient size (includes targeted exams where dose is matched to clinical indication); or iterative reconstruction. Contrast material: OMNI 350; Contrast volume: 80 ml; Contrast route: INTRAVENOUS (IV); COMPARISON: CT angio chest PE protcl [id number] 10/22/2022 2:43 PM RADIATION DOSE METRICS: Total DLP (mGy-cm): 258.4 FINDINGS: Pulmonary arteries: Normal. No pulmonary emboli. Aorta: Unremarkable. No aortic aneurysm. No aortic dissection. Lungs: Both lungs demonstrate diffuse hazy pulmonary edema. No dense consolidation or mass noted. Pleural spaces: A large right-sided pleural effusion is noted along with a tiny left pleural effusion. Heart: Severe cardiomegaly is noted. Lymph nodes: Unremarkable. No enlarged lymph nodes. Intraperitoneal space: Upper abdominal images demonstrate severe ascites Bones/joints: Unremarkable. No acute fracture. Soft tissues: Diffuse body wall edema is noted. CT/CT angio chest PE protcl [id number] IMPRESSION: 1. Severe cardiomegaly with anasarca including pleural effusions, ascites and body wall edema 2. Mild congestive heart failure
--- NOTE | 2025-09-10 16:30 | P.CONIM_ITS ---
Providers/Reason For Consult 2 Consulting Physician/Specialty*: petar florez md/ telenephrology Reason for Consult*: ESRD care Requesting Physician: Dr Estrada Attending Physician: DR Estrada Primary Care Provider: Rebecca Montiel MD History of Present Illness History of Present Illness Vivek Harden is a 40 year old male ESRD on HD, HIV on Biktarvy, PCP Pneumoniae, a fib, HFrEF, DVT, testicular CA s/p orchiectomy, chemo and LN dissection. Pt has relocated [place]. Pt is here visiting. He last had dialysis on Friday. He is not on blood thinners. He is in the ER with SOB and back pain. c/o edema Review of Systems 2 Narrative: weak, SOB, back pain, edema. + diarrhea. no CP, no abd pain. Medications/Allergies Home Medications ?Medication ?Instructions ?Recorded ?Confirmed ?Last Taken ?Type albuterol sulfate 2.5 mg/3 mL 2.5 mg (3 mL) inhalation QID PRN 02/17/25 04/07/25 Unknown Rx (0.083 %) solution for nebulization wheezing #90 mL bictegravir 50 mg-emtricitabine 1 tab PO DAILY 30 days #30 tabs 02/27/25 04/07/25 03/20/25 Rx 200 mg-tenofovir alafenam 25 mg tablet (Biktarvy) PORTABLE OXYGEN #1 ea 03/09/25 04/07/25 Unkn own Rx amiodarone 200 mg tablet (Pacerone) 200 mg PO DAILY #9 0 tabs 03/17/25 04/07/25 03/20/25 Rx compression hose #1 ea 03/22/25 04/07/25 Unkn own Rx enoxaparin 30 mg/0.3 mL 30 mg (0.3 mL) SUBCUT Q12H # 9 mL 03/23/25 04/07/25 Unknown Rx subcutaneous syringe ciprofloxacin HCl 250 mg tablet 250 mg PO DAILY 5 days #5 tabs 03/29/25 04/07/25 Unknown Rx (Cipro) fluconazole 100 mg tablet 100 mg PO DAILY #30 tabs 10/2304/07/25 Unknown Rx sulfamethoxazole 400 1 tab PO DAILY chronic 03/2904/07/25 Unknown Rx mg-trimethoprim 80 mg tablet pneumocystis ppx 30 days #30 tabs (Bactrim) Allergies Allergy/AdvReac Type Severity Reaction Status Date / Time Iodinated Contrast Media Allergy Unknown Verified 03/29/25 11:45 lorazepam (From Ativan) Allergy ADR-Irritab Verified 03/29/25 11:45 le codeine AdvReac Intermediate ADR-Agitate Verified 03/29/25 11:45 d he says biktarvy and a heart medicine. he denies taking other medications PFSH Acute 2 PFSH: Medical History (Updated 09/10/25 @ 16:21 by Federica Butler MD) Syphilis AIDS Moderate to severe mitral regurgitation Valvular heart disease Noncompliance Tricuspid regurgitation Atrial fibrillation Nonischemic cardiomyopathy Deep vein thrombosis of left lower extremity Cardiac arrest Hemoptysis Sleep apnea Hyperkalemia Anemia in chronic kidney disease ESRD (end stage renal disease) on dialysis AV fistula HIV carrier History of testicular cancer Treated with orchiectomy, chemotherapy, and retroperitoneal lymph node dissection Surgical History History of inferior vena caval filter placement History of abdominal surgery (05/2009) Retroperitoneal lymph node dissection History of orchiectomy, unilateral (09/2008) Right unilateral orchiectomy with right inguinal lymph node biopsy S/P hemodialysis catheter insertion (11/30/20) R IJ catheter exchange History of removal of Port-a-Cath Family History Mother Stroke Denies family history of Anesthesia complication Bleeding disorder Social History Smoking and tobacco/nicotine status: unknown if used tobacco/nicotine Quit status (tobacco/nicotine): has quit using Year quit tobacco: 6 + years Former quit date comment: Smoker for 20+ years Alcohol intake: never Substance/Drug Use: current Adopted: No Caregiver/support person: Yes Lives independently: Yes Housing: House Current occupational status: disabled Pets and animals: No Sexually active: Yes Do you think of yourself as: Straight/Heterosexual Current gender identity: Male Josefa/Islam: Cong[employer] Vitals/I&O/Wt Last Vital Signs Temp 97.8 F 09/10/25 15:11 Pulse 132 H 09/10/25 15:48 Resp 20 H 12/13/25 15:33 BP 108/89 09/10/25 15:48 Pulse Ox 100 09/10/25 15:48 O2 Del Method Room Air 09/10/25 15:48 Weight last 48 hrs Weight 63.503 kg Physical Exam 2 Narrative: tachycardic on RA heent- nc/at,eomi neck supple lungs- clear heart tachycardic abdomen soft, + bs, distended ext + LUE AVF , trace edema Data 09/10/25 15:15 09/10/25 15:15 A&P Assessment and plan 1. ESRD (end stage renal disease): 40-year-old man history of ESRD history of anemia, thrombo-cytopenia, HIV on Biktarvy, bilateral DVTs, A-fib, sleep apnea. Patient has relocated to [place] he is here visiting and has not had dialysis since Sunday, September 07, 2025. The patient complains of shortness of breath back pain presented emergency room. He states his blood pressure is always on the low side uses midodrine for dialysis. The patient was found to be in A-fib with RVR found to have a potassium of 5.6 creatinine 12.3 phosphorus 8.4 BNP greater than 70,000 troponin of 237. His platelets are relatively stable at 63 and he has known anemia with a hemoglobin of 8.5. 1. ESRD he has not had dialysis in 3 days we will attempt dialysis today if blood pressure can handle it for 3 hours on a 2K bath attempt to remove 1.5 L. 2. Heart failure reduced EF in February EF was 32% with bowing of the interatrial septum for [id number] severely increased right atrial size moderate to severe mitral valve regurgitation mild aortic valve stenosis moderate to severe tricuspid valve regurgitation. Consider repeat echo now to ensure no pericardial effusion or worsening valvular heart disease. 3. A-fib with RVR as per medicine consider cardiology evaluation. 4. Anemia and thrombocytopenia will give Epogen can check iron studies. 5. HIV CD4 counts have been low in the past can consider repeating as per medicine or he can follow-up with ID 6. Consider repeat venous Dopplers to evaluate for DVTs. The emergency room physician stated that he will be getting a CT PE protocol. Monitor for any blood clots. Will follow the patient along with you. Patient seen and examined using A/V equipment with the aid of a nurse. The patient consented to telehealth and to dialysis. Plan: See above. Dialysis today evaluation for pulmonary embolism, A-fib with RVR as per medicine and cardiology PDMP PDMP Reviewed: Not Reviewed Consult Attestations 2 Medical Necessity Statement: ESRD has not had dialysis in 3 days hyperkalemia, A-fib with RVR, anemia Time Spent in Patient Care: Greater than 35 minutes (>than 50% of time spent in counselling and/or direct pt care on unit) . Coding Level of Care Code Acute Code for Chg Fwd Diagnoses ESRD (end stage renal disease) N18.6
[2025-09-10 16:32] LABS: NT Pro B Type Natriuretic Pept > 70000 pg/mL (0-125)
[2025-09-10] MEDS: methylPREDNISolone sod succ 125 mg/2 mL INJ 60 MG IVP (16:49)
[2025-09-10] MEDS: diphenhydrAMINE 50 mg/mL SDV 1mL IVP (16:49)
[2025-09-10] MEDS: iohexol 350 mg/mL 500 mL Btl (per mL) IV (16:59)
[2025-09-10 17:06] LABS: Uric Acid 8.1 mg/dL (3.4-7.0)
--- NOTE | 2025-09-10 17:33 | PM.HP ---
Providers/Chief Complaint Primary Care Provider: Rebecca Montiel MD Chief Complaint: sob; missed dialysis History of Present Illness Vivek Harden is a 40 year old male with a past medical history of end-stage renal disease on dialysis, last known dialysis this past Friday on a Friday schedule he did miss Fridays dosing, also has past medical history of HIV/AIDS, syphilis, valvular heart disease, atrial fibrillation with green filter in place, DVT, cardiac arrest, sleep apnea, anemia and chronic kidney disease. Patient presented today with cough, body weakness, diarrhea, not making urine when he typically makes a small amount of urine. Patient states that his 8-year-old niece has had an upper respiratory infection and he has been around her for the last few days. Patient denies current chest pain, nausea, vomiting, dark or tarry stools, any type of blood loss, recent falls or injuries, or syncope. Patient was treated in the ER by provider with oxycodone, preemptively treated for contrast dye allergy with Benadryl, famotidine, and Solu-Medrol - pending CTA results to r/o PE. Nephrology graciously agrees to consultation, planned dialysis this evening. Admitting labs WBC 4.78, RBC 2.98, hemoglobin 8.50, potassium 5.6, BUN 62, creatinine 12.3, lactic acid 2.0, uric acid 8.1, phosphorus 8.4, troponin 237, proBNP greater than 70,000, albumin 2.6. Pending blood culture x 2, CD4 count and viral load. Will swab for flu/COVID/RSV, empirically treat for pneumonia with Rocephin and Zithromax. Review of Systems General: Reports: 10 or more systems reviewed and unremarkable except in HPI and below Medications/Allergies Home Medications ?Medication ?Instructions ?Recorded ?Confirmed ?Last Taken ?Type albuterol sulfate 2.5 mg/3 mL 2.5 mg (3 mL) inhalation QID PRN 02/17/25 04/07/25 Unknown Rx (0.083 %) solution for nebulization wheezing #90 mL bictegravir 50 mg-emtricitabine 1 tab PO DAILY 30 days #30 tabs 02/27/25 04/07/25 03/20/25 Rx 200 mg-tenofovir alafenam 25 mg tablet (Biktarvy) PORTABLE OXYGEN #1 ea 03/09/25 04/07/25 Unknown Rx amiodarone 200 mg tablet (Pacerone) 200 mg PO DAILY #90 tabs 03/17/25 04/07/25 03/20/25 Rx compression hose #1 ea 03/22/25 04/07/25 Unknown Rx enoxaparin 30 mg/0.3 mL 30 mg (0.3 mL) SUBCUT Q12H #9 mL 03/23/25 04/07/25 Unknown Rx subcutaneous syringe ciprofloxacin HCl 250 mg tablet 250 mg PO DAILY 5 days #5 tabs 03/29/25 04/07/25 Unknown Rx (Cipro) fluconazole 100 mg tablet 100 mg PO DAILY #30 tabs 03/29/25 04/07/25 Unknown Rx sulfamethoxazole 400 1 tab PO DAILY chronic 03/29/25 04/07/25 Unknown Rx mg-trimethoprim 80 mg tablet pneumocystis ppx 30 days #30 tabs (Bactrim) Allergies Allergy/AdvReac Type Severity Reaction Status Date / Time Iodinated Contrast Media Allergy Unknown Verified 03/29/25 11:45 lorazepam (From Ativan) Allergy ADR-Irritab Verified 03/29/25 11:45 le codeine AdvReac Intermediate ADR-Agitate Verified 03/29/25 11:45 d PFSH Acute PFSH: Medical History (Updated 09/10/25 @ 17:58 by Trina Meade NP) Syphilis AIDS Moderate to severe mitral regurgitation Valvular heart disease Noncompliance Tricuspid regurgitation Atrial fibrillation Nonischemic cardiomyopathy Deep vein thrombosis of left lower extremity Cardiac arrest Hemoptysis Sleep apnea Hyperkalemia Anemia in chronic kidney disease ESRD (end stage renal disease) on dialysis AV fistula HIV carrier History of testicular cancer Treated with orchiectomy, chemotherapy, and retroperitoneal lymph node dissection Surgical History History of inferior vena caval filter placement History of abdominal surgery (05/2009) Retroperitoneal lymph node dissection History of orchiectomy, unilateral (09/2008) Right unilateral orchiectomy with right inguinal lymph node biopsy S/P hemodialysis catheter insertion (11/30/20) R IJ catheter exchange History of removal of Port-a-Cath Family History Mother Stroke Denies family history of Anesthesia complication Bleeding disorder Social History Smoking and tobacco/nicotine status: unknown if used tobacco/nicotine Quit status (tobacco/nicotine): has quit using Year quit tobacco: 6 + years Former quit date comment: Smoker for 20+ years Alcohol intake: never Substance/Drug Use: current Adopted: No Caregiver/support person: Yes Lives independently: Yes Housing: House Current occupational status: disabled Pets and animals: No Sexually active: Yes Do you think of yourself as: Straight/Heterosexual Current gender identity: Male Josefa/Pentecostal: Islam Vitals/I&O/Wt Last Vital Signs Temp 97.8 F 09/10/25 15:11 Pulse 132 H 09/10/25 17:18 Resp 20 H 09/10/25 15:33 BP 108/89 09/10/25 15:48 Pulse Ox 100 09/10/25 17:18 O2 Del Method Room Air 09/10/25 15:48 Weight last 48 hrs Weight 63.503 kg Physical Exam Const: COMMON NORMALS: patient oriented x3 OTHER: Chronically ill-appearing 40-year-old male, sitting up in bed with conversational dyspnea and tachycardia. HENMT: COMMON NORMALS: normocephalic, Normal external nose present and moist oral mucous membranes Eye: COMMON NORMALS: Equal, round and reactive pupils present Lymph: LYMPHATIC: no lymphadenopathy noted Resp: OTHER: Conversational dyspnea, coarse bilaterally with crackles and diminished at the bases. Currently requiring 2 L/min oxygen via nasal cannula Cardio: COMMON NORMALS: S1 normal heart sound present and S2 normal heart sound present OTHER: Tachycardic, no dependent edema noted GI: OTHER: Distended, bowel sounds x 4, no tenderness to palpation Extremity: COMMON NORMALS: full ROM Neuro: COMMON NORMALS: patient oriented x3 and CN's II-XII intact bilaterally Psych: COMMON NORMALS: cooperative and normal affect Skin: OTHER: Dry, ashy skin, poor turgor Data 09/10/25 15:15 09/10/25 15:15 A&P Assessment and plan 1. End stage renal disease on dialysis: 2. Missed dialysis: 3. Hypoxia: 4. Anemia: 5. Thrombocytopenia: 6. AIDS: 7. Anasarca: 8. HIV (human immunodeficiency virus infection): 9. URI (upper respiratory infection): Plan: ESRD Missed Dialysis - Patient lives in [place] now, visiting family and missed dialysis yesterday (last dialysis 09/07) - Admitting BUN 62, creatinine 12.3 - Greatly appreciate Nephrology consultation and management with - Planned Dialysis - Renal diet Acute Hypoxia - Most likely secondary due to volume overload - Continue supplemental Oxygen as needed and wean as tolerated Acute on Chronic systolic and diastolic heart failure with anasarca Ascites - Admitting Pro-BNP >35275 - CTA with severe cardiomegaly with anasarca including pleural effusions, ascites, and body wall edema with mild congestive heart failure - Pending ECHO - Plan dialysis today and tomorrow - Continue cardioprotective medications Thrombocytopenia - Platelet count 63 - Bleeding precautions, close monitoring HIV/Aids - Pending CD4/viral load - Resume home medication Biktarvy 50-200-25 Daily Anemia of chronic disease - Admitting hemoglobin 8.50, this is close to his baseline - Monitor URI Concern for developing pneumonia - Pending Blood Culture x 2, Flu/Covid/RSV PCR - Emperic Antibiotic coverage with Rocephin and zithromax, de-escalate as appropriate - PRN DuoNeb, Mucinex 600 mg twice daily - Continue supportive measures VTE PPX: SCD's GI PPX: PPI Code Status: Full code PDMP PDMP Reviewed: Last Reviewed 09/10/25 18:01 by Trina Meade, [employer] WORK[employer] Attestations Medical Necessity Statement*: Patient will be admitted for end-stage renal disease disease missed dialysis with nephrology consultation, dialysis, and complex medical management. At this point expectation was for 2 days, will reevaluate observation status tomorrow. and High Time for a total of 76 minutes, includes reviewing past or interval history, examining/interviewing patient, placing orders, counseling patient/family/other support, updating patient/family/other support, discussing plan of care with staff, communicating with other healthcare providers, documenting encounter and coordinating care Diagnoses End stage renal disease on dialysis N18.6; Z99.2 Missed dialysis Hypoxia R09.02 Anemia D64.9 Thrombocytopenia D69.6 AIDS B20 Anasarca R60.1 HIV (human immunodeficiency virus infection) Z21 URI (upper respiratory infection) J06.9
--- NOTE | 2025-09-10 18:24 | PC.NURSE ---
PT TO DIALYSIS AT 1824. HYDROMORPHONE NOT ADMINISTERED D/T BEING UNVERIFIED PRIOR TO PT LEAVING.
[2025-09-10 18:49] LABS: Respiratory Syncytial Virus Ce NEGATIVE (Negative); SARS-CoV-2 PCR NEGATIVE (Negative)
[2025-09-10 20:17] LABS: Hepatitis B Surface Antigen Non-Reactive (Nonreactive)
[2025-09-10 21:14] LABS: Troponin 5 6HR Delta 7.8 ng/L (0-12)
[2025-09-10 21:28] LABS: Troponin 5 6HR 244.8 ng/L (0-15)
--- NOTE | 2025-09-10 23:23 | PC.NURSE ---
Patient refused lovenox and azithromycin. Dr Hayward notified.
[2025-09-11 00:28] VITALS: BP 99/71
[2025-09-11 00:38] VITALS: RESP 22; O2SAT 94
[2025-09-11] MEDS: morphine 4 mg/mL SDV 1 mL 2 MG IVP ×2 (00:38→05:35)
--- NOTE | 2025-09-11 03:00 | PC.NURSE ---
Patient wallet and ring with necklace is in bag with tamper resistant tape placed in pyxis.
[2025-09-11 03:02] LABS: Hematocrit 25.7 % (37-53); Hemoglobin 7.80 g/dL (11.27-16.99); Mean Corpuscular HGB Conc 30.4 g/dL (30-55); Mean Corpuscular Hemoglobin 28.2 pg (27-33); Mean Corpuscular Volume 92.8 fl (82-101); Nucleated Red Blood Cells % 0 %; Platelet Count 61 10^3/cmm (157-399); Red Blood Count 2.77 10^6/uL (3.85-5.65); White Blood Count 3.11 10^3/uL (3.29-11.43)
[2025-09-11 03:27] LABS: Alanine Aminotransferase 12 U/L (0-41); Albumin Level 3.1 g/dL (3.5-5.2); Alkaline Phosphatase 102 U/L (40-130); Anion Gap 21.0 (5-19); Aspartate Amino Transferase 25 U/L (0-40); Blood Urea Nitrogen 32 mg/dL (6-20); Calcium 7.9 mg/dL (8.5-10.5); Carbon Dioxide 29 mmol/L (22-29); Chloride 93 mmol/L (98-107); Globulin 3.7 g/dL (1.3-4.6); Glucose 110 mg/dL (65-115); Magnesium 2.0 mg/dL (1.7-2.3); Osmolality Calculated 294 mOsm/kg (285-295); Potassium 5.0 mmol/L (3.5-5.1); Sodium 138 mmol/L (136-145); Total Protein 6.8 g/dL (6.6-8.7)
[2025-09-11 03:37] LABS: Calcium 7.8 mg/dL (8.5-10.5)
[2025-09-11 03:50] LABS: Iron 21 ug/dL (59-158); Total Iron Binding Capacity 85 mcg/dl; Unsaturated Iron Binding 64 ug/dL (112-347)
[2025-09-11 04:00] VITALS: BP 100/76; PULSE 109; RESP 13; TEMP 36.9; O2SAT 99
[2025-09-11 04:27] VITALS: BMI 20.2
[2025-09-11 05:35] VITALS: RESP 14; O2SAT 99
[2025-09-11 06:00] VITALS: BMI 20.2
--- NOTE | 2025-09-11 07:27 | USR_ITS ---
PROCEDURE INFORMATION: Exam: US Duplex Lower Extremity Veins, Bilateral Exam date and time: 09/11/2025 10:35 AM Age: 40 years old Clinical indication: Screening exam; Additional info: R/O dvt TECHNIQUE: Imaging protocol: Real-time duplex ultrasound of the bilateral extremities with 2-D li scale, color Doppler flow and spectral waveform analysis including responses to compression and other maneuvers (when performed) with image documentation. Complete exam focused on the lower extremity veins. COMPARISON: [place] [id number] 03/02/2025 10:08 PM FINDINGS: Right deep veins: No evidence of acute venous thrombi. The common femoral, femoral, proximal profunda femoral and popliteal veins are patent without acute thrombus. Normal Doppler waveforms. Normal compressibility and/or augmentation response. However, there are scattered echogenic foci along the wall of the veins as well as internal webs which may represent sequela of chronic thrombi. Left deep veins: No evidence of acute venous thrombi. The common femoral, femoral, proximal profunda femoral and popliteal veins are patent without acute thrombus. Normal Doppler waveforms. Normal compressibility and/or augmentation response. However, there are scattered echogenic foci along the wall of the veins as well as internal webs which may represent sequela of chronic thrombi. Superficial veins: Greater saphenous veins at the saphenofemoral junctions are patent bilaterally without thrombus. Soft tissues: Unremarkable. US/CV venous duplex [facility] [id number] IMPRESSION: No evidence of acute deep vein thrombosis. Peripheral echogenic thrombi and internal webs which may represent sequela of now chronic venous thrombi.
--- NOTE | 2025-09-11 07:29 | PM.PN ---
Subjective Subjective: Patient seen and examined at bedside on hospital rounds today. Patient sitting up in bed with mild nausea, continued shortness of breath, and abdominal swelling. Patient denies chest pain or new or worsening symptoms. Patient states that he would like to discharge this morning, spoke with patient about the potential need for repeat dialysis today and he is agreeable stating for dialysis but states that if he does not get dialysis today then he would like to leave. Vital signs with lower blood pressure, improved pulse rate but still elevated. Patient is currently sinus tachycardic not in A-fib RVR. Improved creatinine to 6.9 still very high, platelets remained stable at 61. Pending bilateral venous Doppler. Will continue current interventions, pending nephrology interventions today as well. All questions and concerns addressed the patient at bedside today. Vitals/I&O/Wt Last Vital Signs Temp 98.4 F 09/11/25 04:00 Pulse 109 H 09/11/25 04:00 Resp 14 09/11/25 05:35 BP 100/76 09/11/25 04:00 Pulse Ox 99 09/11/25 05:35 O2 Del Method Nasal Cannula 09/11/25 04:00 O2 Flow Rate 1.5 09/11/25 04:00 09/10/25 09/11/25 09/11/25 22:59 06:59 14:59 Intake Total 800 / 800 420 / 1220 Output Total 2150 / 2150 Balance -1350 / -1350 420 / -930 Weight last 48 hrs Weight 60.5 kg Weight 60.5 kg Weight 57.6 kg Weight 62 kg Weight 63.503 kg Physical Exam Const: COMMON NORMALS: patient oriented x3 OTHER: Chronically ill-appearing 40-year-old male, sitting up in bed with nausea but much improved over previous exam. HENMT: COMMON NORMALS: normocephalic, Normal external nose present and moist oral mucous membranes HEAD & SCALP: normocephalic NOSE: Normal external nose present Eye: COMMON NORMALS: Equal, round and reactive pupils present PUPIL: Yes Equal, round and reactive pupils present Lymph: LYMPHATIC: no lymphadenopathy noted Resp: OTHER: Conversational dyspnea, coarse bilaterally with crackles and diminished at the bases. Currently requiring 2 L/min oxygen via nasal cannula Cardio: COMMON NORMALS: S1 normal heart sound present and S2 normal heart sound present HEART SOUNDS: S1 normal heart sound present and S2 normal heart sound present OTHER: Tachycardic, no dependent edema noted GI: OTHER: Distended, bowel sounds x 4, no tenderness to palpation Extremity: COMMON NORMALS: full ROM Neuro: COMMON NORMALS: patient oriented x3 and CN's II-XII intact bilaterally Psych: COMMON NORMALS: cooperative and normal affect Skin: OTHER: Dry, ashy skin, poor turgor Data 09/11/25 02:40 09/11/25 02:40 Micro: Microbiology 09/10/25 18:15 Blood Culture - Preliminary Blood SPECIMEN COLLECTED 09/10/25 18:17 Blood Culture - Preliminary Blood SPECIMEN COLLECTED A&P Assessment and plan 1. End stage renal disease on dialysis: 2. Missed dialysis: 3. Hypoxia: 4. Anemia: 5. Thrombocytopenia: 6. AIDS: 7. Anasarca: 8. HIV (human immunodeficiency virus infection): 9. URI (upper respiratory infection): Plan: ESRD Missed Dialysis - Patient lives in [place] now, visiting family and missed dialysis yesterday (last dialysis 09/07) - Admitting BUN 62, creatinine 12.3 on admission, BUN 32, creatinine 6.9 currently - Greatly appreciate Nephrology consultation and management with - Status post dialysis 09/10/2025, may repeat today - Renal diet Acute Hypoxia - Most likely secondary due to volume overload - Continue supplemental Oxygen as needed and wean as tolerated Acute on Chronic systolic and diastolic heart failure with anasarca Ascites - Admitting Pro-BNP >38930 - CTA with severe cardiomegaly with anasarca including pleural effusions, ascites, and body wall edema with mild congestive heart failure - Pending ECHO - Had dialysis yesterday, may repeat today - Continue cardioprotective medications Thrombocytopenia - Platelet count 63--<61 - Bleeding precautions, close monitoring HIV/Aids - Pending CD4/viral load - Resume home medication Biktarvy 50-200-25 Daily Anemia of chronic disease - Admitting hemoglobin 8.50, repeat 7.80 - Monitor URI Concern for developing pneumonia - Pending Blood Culture x 2, Flu/Covid/RSV PCR are negative - Emperic Antibiotic coverage with Rocephin and zithromax, de-escalate as appropriate - PRN DuoNeb, Mucinex 600 mg twice daily - Continue supportive measures VTE PPX: SCD's GI PPX: PPI Code Status: Full code PDMP PDMP Reviewed: Last Reviewed 09/10/25 18:01 by Trina Meade [employer] Attestations Medical Necessity Statement*: Patient will be admitted for end-stage renal disease disease missed dialysis with nephrology consultation, dialysis, and complex medical management. At this point expectation was for 2 days, but patient may leave sooner. Coding Level of Care Code 26983 Diagnoses End stage renal disease on dialysis N18.6; Z99.2 Missed dialysis Hypoxia R09.02 Anemia D64.9 Thrombocytopenia D69.6 AIDS B20 Anasarca R60.1 HIV (human immunodeficiency virus infection) Z21 URI (upper respiratory infection) J06.9
[2025-09-11 07:39] VITALS: BP 99/84; PULSE 114; RESP 25; TEMP 36.5; O2SAT 90
[2025-09-11] MEDS: ondansetron 2 mg/ML SDV 2 mL 4 MG IVP (08:03)
--- NOTE | 2025-09-11 08:12 | PC.NURSE ---
Provider is updated that patient is trying to throw up.
[2025-09-11] MEDS: cefTRIAXone 1,000 mg SDV 1000 MG IVP (08:59)
--- NOTE | 2025-09-11 09:44 | P.PN_ITS ---
Subjective 2 Subjective: Patient is seen and examined he states he feels better. Patient wants to go home he denies nausea vomiting or diarrhea or shortness of breath. He states he is always tachycardic. Patient had dialysis today he is willing to do a short dialysis this morning. The patient had nausea that improved this morning. Medications: Reviewed: Yes Medication Review Details: Current Medications Acetaminophen (Acetaminophen 325 Mg Tablet) 650 mg PO Q6H PRN PRN Reason: Mild/Mod Pain Or Temp >/= 101 Albuterol/Ipratropium (Ipratropium-Albuterol 3 Ml Neb) 3 ml INHALATION Q4H.RESPIRATORY PRN PRN Reason: SHORTNESS OF BREATH Azithromycin (Azithromycin 250 Mg Tablet) 500 mg PO DAILY [facility]; Protocol Last Admin: 09/11/25 04:18 Dose: 500 mg Bisacodyl (Bisacodyl 5 Mg Tablet) 10 mg PO DAILY PRN; Protocol PRN Reason: Constipation (see protocol) Ceftriaxone Sodium (Ceftriaxone 1,000 Mg Sdv) 1,000 mg IVP DAILY [facility]; Protocol Last Admin: 09/11/25 08:59 Dose: 1,000 mg Enoxaparin Sodium (Enoxaparin 40 Mg/0.4 Ml Syringe) 30 mg SUBCUT Q24H MIGUEL Last Admin: 09/10/25 22:49 Dose: Not Given Guaifenesin (Guaifenesin 600 Mg Tablet) 600 mg PO BID [facility] Last Admin: 09/11/25 04:18 Dose: 600 mg Albumin Human (Albumin) 12.5 gm in 50 mls @ 60 mls/hr IV PRN PRN PRN Reason: Hypotension and/or symptomatic Last Infusion: 09/10/25 22:04 Dose: Infused Midodrine (Midodrine 5 Mg Tablet) 10 mg PO TID [facility] Last Admin: 09/11/25 04:18 Dose: 10 mg Morphine Sulfate (Morphine 4 Mg/Ml Sdv 1 Ml) 2 mg IVP Q4H PRN PRN Reason: SEVERE PAIN Last Admin: 09/11/25 05:35 Dose: 2 mg Naloxone HCl (Naloxone 0.4 Mg/Ml Sdv) 0.1 mg IVP Q2M PRN PRN Reason: OPIATERV Non-Formulary Medication (Cgilageey-Wmotajba-Qbewgvi Ala [Biktarvy]) 1 tab PO DAILY [facility] Ondansetron HCl (Ondansetron 2 Mg/Ml Sdv 2 Ml) 4 mg IVP Q8H PRN PRN Reason: vomiting, or N/V if npo Last Admin: 09/11/25 08:03 Dose: 4 mg Vitals/I&O/Wt Last Vital Signs Temp 97.7 F 09/11/25 07:39 Pulse 114 H 09/11/25 07:39 Resp 25 H 09/11/25 07:39 BP 99/84 09/11/25 07:39 Pulse Ox 90 09/11/25 07:39 O2 Del Method Nasal Cannula 09/11/25 04:00 O2 Flow Rate 1.5 09/11/25 04:00 09/10/25 09/11/25 09/11/25 22:59 06:59 14:59 Intake Total 800 / 800 420 / 1220 Output Total 2150 / 2150 Balance -1350 / -1350 420 / -930 Weight last 48 hrs Weight 60.5 kg Weight 60.5 kg Weight 57.6 kg Weight 62 kg Weight 63.503 kg Physical Exam 2 Narrative: tachycardic on room air. The patient's blood pressure is still low. heent- nc/at,eomi neck supple lungs- clear heart tachycardic irregular abdomen soft, + bs, distended ext + LUE AVF , no significant edema Neuro awake alert oriented x 3 Data 09/11/25 02:40 09/11/25 02:40 Micro: Microbiology 09/10/25 18:15 Blood Culture - Preliminary Blood SPECIMEN COLLECTED 09/10/25 18:17 Blood Culture - Preliminary Blood SPECIMEN COLLECTED A&P Assessment and plan 1. ESRD (end stage renal disease): 40-year-old man history of ESRD history of anemia, thrombo-cytopenia, HIV on Biktarvy, bilateral DVTs, A-fib, sleep apnea. Patient has relocated to [place] he is here visiting and has not had dialysis since Sunday, September 07, 2025. The patient complains of shortness of breath back pain presented emergency room. He states his blood pressure is always on the low side uses midodrine for dialysis. The patient was found to be in A-fib with RVR found to have a potassium of 5.6 creatinine 12.3 phosphorus 8.4 BNP greater than 70,000 troponin of 237. His platelets are relatively stable at 63 and he has known anemia with a hemoglobin of 8.5. 1. ESRD patient feels better after dialysis yesterday. Potassium is 5. Will repeat dialysis today for 2 to 2-1/2 hours. Patient is to continue with his regular dialysis tomorrow. Needs phosphorus binders. PTH 293 acceptable for ESRD 2. Heart failure reduced EF in February EF was 32% with bowing of the interatrial septum for [id number] severely increased right atrial size moderate to severe mitral valve regurgitation mild aortic valve stenosis moderate to severe tricuspid valve regurgitation. Consider repeat echo now to ensure no pericardial effusion or worsening valvular heart disease. 3. A-fib with RVR as per medicine consider cardiology evaluation. 4. Anemia and thrombocytopenia. He received epogen yesterday. Iron saturation is 24% his ferritin is greater than 8000 please do not give iron. Given his anemia thrombocytopenia and ferritin greater than 8000 I would have the patient seen by hematology. 5. HIV CD4 counts have been low in the past can consider repeating as per medicine or he can follow-up with ID 6. History of DVTs no pulmonary embolism on CT scan. CT scan did show severe cardiomegaly with anasarca including pleural effusions ascites and bladder wall edema. We having difficulty removing fluid on dialysis due to his hypotension and cardiac disease. Patient needs cardiac follow-up. Will follow the patient along with you. Patient seen and examined using A/V equipment with the aid of a nurse. The patient consented to telehealth and to dialysis. Plan: See above. Dialysis today. Patient has A-fib with RVR hypotension and severe volume overload anemia thrombocytopenia and AIDS. Patient would benefit from cardiology evaluation and hematology evaluation. Patient would like to go home today. The question is how much she needs to be done as an outpatient or inpatient. And patient needs follow-up with nephrology. If patient tolerates dialysis today can consider discharge with outpatient follow-up with above physicians as per hospitalist. PDMP PDMP Reviewed: Not Reviewed Attestations 2 Medical Necessity Statement*: ESRD, A-fib, pleural effusions, AIDS Time Spent in Patient Care: Greater than 35 minutes (>than 50% of time spent in counselling and/or direct pt care on unit) . Coding Level of Care Code Acute Code for [facility] Diagnoses ESRD (end stage renal disease) N18.6
--- NOTE | 2025-09-11 11:06 | PM.DCS ---
Discharge Providers Date of Admission: 09/10/25 17:26 Date of Discharge: September 11, 2025 Attending Provider at Admission: Negro Rosado Attending Provider at Discharge: Trina Meade NP Primary Care Provider: Rebecca Montiel MD Diagnoses at Discharge Discharge Diagnosis 1. ESRD (end stage renal disease): Reason for Visit Reason for Visit: sob; missed dialysis Brief History: Admission: Vivek Harden is a 40 year old male with a past medical history of end-stage renal disease on dialysis, last known dialysis this past Friday on a Friday schedule he did miss Fridays dosing, also has past medical history of HIV/AIDS, syphilis, valvular heart disease, atrial fibrillation with green filter in place, DVT, cardiac arrest, sleep apnea, anemia and chronic kidney disease. Patient presented today with cough, body weakness, diarrhea, not making urine when he typically makes a small amount of urine. Patient states that his 8-year-old niece has had an upper respiratory infection and he has been around her for the last few days. Patient denies current chest pain, nausea, vomiting, dark or tarry stools, any type of blood loss, recent falls or injuries, or syncope. Patient was treated in the ER by provider with oxycodone, preemptively treated for contrast dye allergy with Benadryl, famotidine, and Solu-Medrol - pending CTA results to r/o PE. Nephrology graciously agrees to consultation, planned dialysis this evening. Admitting labs WBC 4.78, RBC 2.98, hemoglobin 8.50, potassium 5.6, BUN 62, creatinine 12.3, lactic acid 2.0, uric acid 8.1, phosphorus 8.4, troponin 237, proBNP greater than 70,000, albumin 2.6. Pending blood culture x 2, CD4 count and viral load. Will swab for flu/COVID/RSV, empirically treat for pneumonia with Rocephin and Zithromax. 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 Ascites - Admitting Pro-BNP >70811 - CTA with severe cardiomegaly with anasarca including pleural effusions, ascites, and body wall edema with mild congestive heart failure - Pending ECHO - Had dialysis yesterday, may repeat today - Continue cardioprotective medications Thrombocytopenia - Platelet count 63--<61 - Bleeding precautions, close monitoring HIV/Aids - Pending CD4/viral load - Resume home medication Biktarvy 50-200-25 Daily Anemia of chronic disease - Admitting hemoglobin 8.50, repeat 7.80 - Monitor URI Concern for developing pneumonia - Pending Blood Culture x 2, Flu/Covid/RSV PCR are negative - Emperic Antibiotic coverage with Rocephin and zithromax, de-escalate as appropriate - PRN DuoNeb, Mucinex 600 mg twice daily - Continue supportive measures Discharge: Ayaan is leaving AMA - education given that he needed dialysis again, that he needed to stay on lovenox - patient refusing lovenox and stating that he is leaving regardless. Discussed with patient that he has significant ascites, could have infection, may need paracentesis. He verbalized understanding, refuses further interventions and states he is leaving. Prescribed antibiotics which he said he will take and advised follow up with repeat labs and continued cardiac monitoring with his PCP tomorrow. Patient refusing lovenox, could have DVT, grave concerns with tachycardia at discharge, but he is A&O x4 and determined to leave. Patient states he will have dialysis tomorrow. Physical Exam Const: COMMON NORMALS: patient oriented x3 OTHER: Chronically ill-appearing 40-year-old male, sitting up in bed with nausea but much improved over previous exam. HENMT: COMMON NORMALS: normocephalic, Normal external nose present and moist oral mucous membranes HEAD & SCALP: normocephalic NOSE: Normal external nose present Eye: COMMON NORMALS: Equal, round and reactive pupils present PUPIL: Yes Equal, round and reactive pupils present Lymph: LYMPHATIC: no lymphadenopathy noted Resp: OTHER: Conversational dyspnea, coarse bilaterally with crackles and diminished at the bases. Currently requiring 2 L/min oxygen via nasal cannula Cardio: COMMON NORMALS: S1 normal heart sound present and S2 normal heart sound present HEART SOUNDS: S1 normal heart sound present and S2 normal heart sound present OTHER: Tachycardic, no dependent edema noted GI: OTHER: Distended, bowel sounds x 4, no tenderness to palpation Extremity: COMMON NORMALS: full ROM Neuro: COMMON NORMALS: patient oriented x3 and CN's II-XII intact bilaterally Psych: COMMON NORMALS: cooperative and normal affect Skin: OTHER: Dry, ashy skin, poor turgor Discharge Data Studies Completed and Pending Completed Studies During Hospitalization Category Date Time Status CTA PE [CT angio chest PE protcl [id number]] Stat Cat Scan 09/10/25 16:19 Completed XR chest 1V portable [id number] Stat Exams 09/10/25 14:48 Completed Pending at discharge Category Date Time Status Blood Culture Stat Lab 09/10/25 18:15 Results Complete Blood Count w/Auto AM LABS Lab 09/12/25 04:00 Ordered Complete Blood Count w/Auto AM LABS Lab 09/13/25 04:00 Ordered Comprehensive Metabolic Panel AM LABS Lab 09/12/25 04:00 Ordered Comprehensive Metabolic Panel AM LABS Lab 09/13/25 04:00 Ordered HIV RNA (PCR) Quant Routine Lab 09/10/25 22:00 Ordered Lymphocyte Subset Panel 5 Routine Lab 09/10/25 23:55 Ordered Magnesium AM LABS Lab 09/12/25 04:00 Ordered Magnesium AM LABS Lab 09/13/25 04:00 Ordered Phosphorus AM LABS Lab 09/12/25 04:00 Ordered Phosphorus AM LABS Lab 09/13/25 04:00 Ordered T and B Cell Panel Routine Lab 09/11/25 00:04 Ordered CV. echo complete* [id number] Stat Ultrasound 09/10/25 16:29 Ordered US venous duplex lower extremity bilat [CV venous Ultrasound 09/11/25 07:27 [place] [id number]] Routine Radiology Impressions Chest X-Ray 09/10/25 14:48 IMPRESSION: 1. No acute intrathoracic abnormality. 2. Cardiomegaly. Chest CTA 09/10/25 16:19 IMPRESSION: 1. Severe cardiomegaly with anasarca including pleural effusions, ascites and body wall edema 2. Mild congestive heart failure Laboratory Results WBC 3.11 10^3/uL (3.29-11.43) L 09/11/25 02:40 RBC 2.77 10^6/uL (3.85-5.65) L 09/11/25 02:40 Hgb 7.80 g/dL (11.27-16.99) L 09/11/25 02:40 Hct 25.7 % (37-53) L 09/11/25 02:40 MCV 92.8 fl (82-101) D 09/11/25 02:40 MCH 28.2 pg (27-33) 09/11/25 02:40 MCHC 30.4 g/dL (30-55) D 09/11/25 02:40 RDW 17.8 % (12.1-15.1) H 09/11/25 02:40 Plt Count 61 10^3/cmm (157-399) L 09/11/25 02:40 MPV 12.6 fL (7.4-10.4) H 09/11/25 02:40 Neut % (Auto) 73.9 % 09/11/25 02:40 Lymph % (Auto) 21.9 % 09/11/25 02:40 Spalding % (Auto) 3.9 % 09/11/25 02:40 Eos % (Auto) 0.0 % 09/11/25 02:40 Baso % (Auto) 0.0 % 09/11/25 02:40 Neut # (Auto) 2.30 10^3/uL (1.8-7.7) 09/11/25 02:40 Lymph # (Auto) 0.7 10^3/uL (0.8-4.8) L 09/11/25 02:40 Spalding # (Auto) 0.1 10^3/uL (0.2-0.9) L 09/11/25 02:40 Eos # (Auto) 0.0 10^3/uL (0.0-0.8) 09/11/25 02:40 Baso # (Auto) 0.0 10^3/uL (0.0-0.1) 09/11/25 02:40 Nucleated RBC % (auto) 0 % 09/11/25 02:40 Nucleated RBCs # 0.0 /100WBC 09/11/25 02:40 Sodium 138 mmol/L (136-145) 09/11/25 02:40 Potassium 5.0 mmol/L (3.5-5.1) 09/11/25 02:40 Chloride 93 mmol/L (98-107) L 09/11/25 02:40 Carbon Dioxide 29 mmol/L (22-29) 09/11/25 02:40 Anion Gap 21.0 (5-19) H 09/11/25 02:40 BUN 32 mg/dL (6-20) H 09/11/25 02:40 Creatinine 6.9 mg/dL (0.7-1.2) H* 09/11/25 02:40 GFR Calculation 10.7 mL/min (90-130) L 09/11/25 02:40 Glucose 110 mg/dL (65-115) 09/11/25 02:40 Calculated Osmolality 294 mOsm/kg (285-295) 09/11/25 02:40 Lactic Acid 2.0 mmol/L (0.5-2.2) 09/10/25 15:15 Uric Acid 8.1 mg/dL (3.4-7.0) H 09/10/25 16:23 Calcium 7.9 mg/dL (8.5-10.5) L 09/11/25 02:40 Phosphorus 7.1 mg/dL (2.5-4.5) H 09/11/25 02:40 Magnesium 2.0 mg/dL (1.7-2.3) 09/11/25 02:40 Iron 21 ug/dL (59-158) L 09/11/25 02:40 TIBC 85 mcg/dl 09/11/25 02:40 % Saturation 24.7 % (20-50) 09/11/25 02:40 Unsat Iron Binding 64 ug/dL (112-347) L 09/11/25 02:40 Ferritin > 8057 ng/mL (30-400) H 09/11/25 02:40 Total Bilirubin 0.7 mg/dL (0.15-1.2) 09/11/25 02:40 AST 25 U/L (0-40) 09/11/25 02:40 ALT 12 U/L (0-41) 09/11/25 02:40 Alkaline Phosphatase 102 U/L (40-130) 09/11/25 02:40 Troponin T Baseline 237 ng/L (0-15) H* 09/10/25 15:15 Troponin T 60 Minute 230.3 ng/L (0-15) H 09/10/25 16:23 Delta Troponin T -6.7 ABS# (0-10) L 09/10/25 16:23 Troponin T Hi Sens 6Hr 244.8 ng/L (0-15) H 09/10/25 20:50 Troponin T Hi Sens 6Hr Delta 7.8 ng/L (0-12) 09/10/25 20:50 NT-Pro-B Natriuret Pep > 82658 pg/mL (0-125) H 09/10/25 15:15 Total Protein 6.8 g/dL (6.6-8.7) 09/11/25 02:40 Albumin 3.1 g/dL (3.5-5.2) L 09/11/25 02:40 Globulin 3.7 g/dL (1.3-4.6) 09/11/25 02:40 25-OH Vitamin D Total 6 ng/mL (30-100) L 09/11/25 02:40 PTH Intact 293.0 pg/mL (15-65) H 09/11/25 02:40 Calcium (PTH Intact) 7.8 mg/dL (8.5-10.5) L 09/11/25 02:40 Hep Bs Antigen Non-reactive (Nonreactive) 09/10/25 15:15 Hep Bs Antibody 7.3 (11.5-1000) L 09/10/25 15:15 Hepatitis C Antibody Non-reactive (Nonreactive) 09/10/25 15:15 Influenza A (PCR) Negative (Negative) 09/10/25 18:00 Influenza Type B (PCR) Negative (Negative) 09/10/25 18:00 RSV (PCR) Negative (Negative) 09/10/25 18:00 SARS-CoV-2 (PCR) Negative (Negative) 09/10/25 18:00 Vitals Last Vital Signs Temp 97.7 F 09/11/25 07:39 Pulse 114 H 09/11/25 07:39 Resp 25 H 09/11/25 07:39 BP 99/84 09/11/25 07:39 Pulse Ox 90 09/11/25 07:39 O2 Del Method Nasal Cannula 09/11/25 04:00 O2 Flow Rate 1.5 09/11/25 04:00 Discharge Plan Discharge Patient Disposition: Left Against Medical Advice Condition: Stable Prescriptions: New azithromycin 250 mg Tablet 500 mg PO DAILY 5 Days Qty: 5 0RF cefdinir 300 mg capsule 300 mg PO BID 5 Days Qty: 10 0RF Continued (DME) PORTABLE OXYGEN See Rx Instructions .Route .MEDSUPPLY Qty: 1 0RF Rx Instructions: 3 L via nasal cannula, portable oxygen. (DME) compression hose See Rx Instructions .Route .MEDSUPPLY Qty: 1 0RF Rx Instructions: 20-30 mmHg Biktarvy 50-200-25 mg tablet 1 tab PO DAILY 30 Days Qty: 30 6RF albuterol sulfate 2.5 mg /3 mL (0.083 %) solution for nebulization 2.5 mg inhalation QID PRN (Reason: wheezing) Qty: 90 0RF Referrals: Rebecca Montiel MD [Primary Care Provider, [facility]] - 1-3 days Discharge Diet: Usual diet Discharge Activity: Resume usual activity Patient Instructions: Opioid Safety, Patient Portal & Nhan Instructions Discharge Attestations Time Spent in Discharge Care*: greater than 30 min Status at Discharge: Cognitive status at discharge: cognitively intact, Behavioral status at discharge: cooperative, Quality Metrics Clinical Quality Measures [ No reported AMI, CVA or VTE this stay] Coding Level of Care Code 18760 Diagnoses ESRD (end stage renal disease) N18.6
--- NOTE | 2025-09-11 11:34 | PC.NURSE ---
Patient left AMA. Trina Dueñas STAFFING SPECIALIST was notified and came down to talk to him with nursing staff present. Patient needed to have dialysis this morning. Patient would not wait to have it done. Patients IV was removed. Antibiotics were sent in to [facility] in [place], [place] and AMA form is signed, all belongings from the [facility] were returned to patient prior to leaving. Patient left unit at 1130.
== END 2025-09-11 11:40 | disposition left against medical advice (07) ==
LOC: ER 16:21 → ER IP 17:49 → CSU 22:00
PROVIDERS: Internal Medicine Nephrology; Admitting Provider Internal Medicine; Emergency Provider Emergency Medicine; PCP Family Medicine; Visit Provider Registered Nurse
DX: N18.6 End stage renal disease (principal); Z99.2 Dependence on renal dialysis; R09.02 Hypoxemia; D64.9 Anemia, unspecified; D69.6 Thrombocytopenia, unspecified; R60.1 Generalized edema; Z21 Asymptomatic human immunodeficiency virus [HIV] infection status; J06.9 Acute upper respiratory infection, unspecified; Z79.891 Long term (current) use of opiate analgesic; Z99.81 Dependence on supplemental oxygen; I34.0 Nonrheumatic mitral (valve) insufficiency; I48.91 Unspecified atrial fibrillation; G47.30 Sleep apnea, unspecified; Z85.47 Personal history of malignant neoplasm of testis; Z87.891 Personal history of nicotine dependence
CPT/HCPCS: 36415; 71045; 71275; 80053; 82306; 82310; 82728; 83540; 83550; 83605; 83735; 83880; 83970; 84100; 84484; 84550; 85025; 86706; 86803; 87040; 87340; 87637; 90935; 93005; 93970; 96365; 96375; 99285; G0378; J0696; J1200; J2270; J2405; J2919; J3490; J9999; P9047; Q0144